=== PATIENT | male | born 1945 | race African-American/Black ===

== ENCOUNTER 2016-10-20 09:17 | Inpatient (IN) | payer MEDICARE, MEDICAID ==
[~2016-10-20] VITALS: Ht 170.2 cm; Wt 71.2 kg
[2016-10-20] MEDS ORDERED: VASOTEC5 MG ORAL (09:29)
[2016-10-20] MEDS ORDERED: MULTIVITAMINS1 EAC8 ORAL (09:29)
[2016-10-20] MEDS ORDERED: NAMENDA XR28 MG PO (09:29)
[2016-10-20] MEDS ORDERED: VITAMIN C500 M1 ORAL (09:29)
[2016-10-20] MEDS ORDERED: ASPIR 8181 MG ORAL (09:29)
[2016-10-20] MEDS ORDERED: DOCUSATE SODIU100 MG ORAL (09:29)
[2016-10-20] MEDS ORDERED: TYLENOL325 MG ORAL (09:29)
[2016-10-20 09:30] VITALS: BP 134/111
[2016-10-20] MEDS ORDERED: Pantoprazole 80 MG in NS 250 ML IV ONE (09:30)
[2016-10-20] MEDS ORDERED: Pantoprazole Inj IV ONE (09:30)
--- NOTE | 2016-10-20 09:32 | Emergency Room Report ---
History of Present Illness General Chief Complaint: Gastrointestinal Bleed Source: Medical Record, EMS Present Illness HPI This [facility]. He is nonverbal at baseline and has contractions. His a history of dementia COPD and generalized weakness. He also has a history of schizophrenia. He is presenting from the [facility] facility because he had an episode of what appeared to be coffee ground emesis x1 this morning there is no other reports of fever or evidence of pain. There are no other complaints. Allergies: Coded Allergies: No Known Allergies (Unverified , 10/20/16) Patient History Past Medical History: see triage record, COPD, GERD, dementia, psych hx - schizophrenia, other - generalized weakness, Contractures Social History: Denies: alcohol use, drug use, smoking Reviewed Nursing Documentation: PMH: Agreed, PSxH: Agreed Nursing Documentation-PMH Hx COPD: Yes History Of Psychiatric Problem: Yes - Alzheimer's Review of Systems All Other Systems: limited Physical Exam Vital Signs Date Time Temp Pulse Resp B/P Pulse Ox O2 Delivery O2 Flow Rate FiO2 10/20/16 09:15 99.0 88 18 123/90 95 Room Air Sp02 EP Interpretation: reviewed, normal General Appearance: no apparent distress, alert, GCS 15, non-toxic Head: normocephalic, atraumatic ENT: no angioedema Neck: normal inspection, supple/symm/no masses Respiratory: chest non-tender, lungs clear, normal breath sounds, no respiratory distress, no retraction, no accessory muscle use Cardiovascular #1: regular rate, rhythm, no edema, systolic murmur Gastrointestinal: normal bowel sounds, non tender, soft, non-distended, no guarding, no rebound Rectal: deferred Musculoskeletal: non-tender, other - position, contractures. At baseline. Neurologic: alert, other - At baseline. Non-verbal Skin: warm/dry, well hydrated, other - See RN skin exam Medical Decision Making Diagnostic Impression: Primary Impression: Gastrointestinal hemorrhage ER Course This patient had an episode of coffee-ground emesis at the [facility] facility. There was one episode just prior to arrival. The patient hemoglobin and hematocrit are stable and normal. However, this could be early in the process of an upper GI bleed. The patient had no further episodes here in the emergency department. He was given a Protonix bolus IV and started on a Protonix drip. I will that this patient for further evaluation by gastroenterology. The patient is nonverbal concerned unable to get any further history. He is admitted to telemetry. Labs Test 10/20/16 09:25 White Blood Count 11.7 K/UL (4.8-10.8) Red Blood Count 6.47 M/UL (4.70-6.10) Hemoglobin 19.3 G/DL (14.2-18.0) Hematocrit 61.3 % (42.0-52.0) Mean Corpuscular Volume 95 FL (80-99) Mean Corpuscular Hemoglobin 29.8 PG (27.0-31.0) Mean Corpuscular Hemoglobin Concent 31.4 G/DL (32.0-36.0) Red Cell Distribution Width 12.7 % (11.6-14.8) Platelet Count 256 K/UL (150-450) Mean Platelet Volume 6.1 FL (6.5-10.1) Neutrophils (%) (Auto) 79.6 % (45.0-75.0) Lymphocytes (%) (Auto) 13.4 % (20.0-45.0) Monocytes (%) (Auto) 6.0 % (1.0-10.0) Eosinophils (%) (Auto) 0.4 % (0.0-3.0) Basophils (%) (Auto) 0.7 % (0.0-2.0) Prothrombin Time 11.4 SEC (9.30-11.50) Prothromb Time International Ratio 1.1 (0.9-1.1) Activated Partial Thromboplast Time 24 SEC (23-33) Sodium Level 138 mEQ/L (135-145) Potassium Level 4.3 mEQ/L (3.4-4.9) Chloride Level 100 mEQ/L (98-107) Carbon Dioxide Level 26 mEQ/L (20-30) Anion Gap 12 (5-15) Blood Urea Nitrogen 15 mg/dL (7-23) Creatinine 1.0 mg/dL (0.7-1.2) Estimat Glomerular Filtration Rate > 60 mL/min (>60) Glucose Level 132 mg/dL (74-106) Calcium Level 9.8 mg/dL (8.6-10.2) Total Bilirubin 0.9 mg/dL (0.0-1.2) Aspartate Amino Transf (AST/SGOT) 39 U/L (5-40) Alanine Aminotransferase (ALT/SGPT) 37 U/L (3-41) Alkaline Phosphatase 123 U/L (40-129) Troponin I < 0.30 ng/mL (<=0.30) Total Protein 7.9 g/dL (6.6-8.7) Albumin 3.9 g/dL (3.5-5.2) Globulin 4.0 g/dL Albumin/Globulin Ratio 0.9 (1.0-2.7) Lipase 48 U/L (< 60) EKG Diagnostic Results Rate: normal Rhythm: NSR ST Segments: no acute changes Other Impression Qwaves in V1, V2, V3 Rhythm Strip Diag. Results EP Interpretation: yes Rate: 80's Rhythm: NSR, no PVC's, no ectopy Last Vital Signs Date Time Temp Pulse Resp B/P Pulse Ox O2 Delivery O2 Flow Rate FiO2 10/20/16 09:15 99.0 88 18 123/90 95 Room Air Disposition: ADMITTED INPATIENT Condition: Serious CORA TAO D.O. Oct 20, 2016 09:32
[2016-10-20] MEDS ORDERED: Pantoprazole Inj ONE (09:45)
[2016-10-20 09:49] LABS: BASOPHILS % (AUTO) 0.7 % (0.0-2.0); EOSINOPHILS % (AUTO) 0.4 % (0.0-3.0); LYMPHOCYTES % (AUTO) 13.4 % (20.0-45.0); MEAN CORPUSCULAR HEMOGLOBIN 29.8 PG (27.0-31.0); MEAN CORPUSCULAR HGB CONC 31.4 G/DL (32.0-36.0); MEAN CORPUSCULAR VOLUME 95 FL (80-99); MEAN PLATELET VOLUME 6.1 FL (6.5-10.1); NEUTROPHILS % (AUTO) 79.6 % (45.0-75.0); PLATELET COUNT 256 K/UL (150-450); RED BLOOD COUNT 6.47 M/UL (4.70-6.10); RED CELL DISTRIBUTION WIDTH 12.7 % (11.6-14.8); WHITE BLOOD COUNT 11.7 K/UL (4.8-10.8)
[2016-10-20 09:59] LABS: INR 1.1 (0.9-1.1); PROTHROMBIN TIME 11.4 SEC (9.30-11.50)
[2016-10-20 10:09] LABS: TROPONIN I < 0.30 ng/mL (<=0.30)
[2016-10-20 10:12] LABS: ALANINE AMINOTRANSFERASE 37 U/L (3-41); ALBUMIN/GLOBULIN RATIO 0.9 (1.0-2.7); ANION GAP 12 (5-15); ASPARTATE AMINO TRANSFERASE 39 U/L (5-40); CALCIUM 9.8 mg/dL (8.6-10.2); CARBON DIOXIDE 26 mEQ/L (20-30); CHLORIDE 100 mEQ/L (98-107); GLOMERULAR FILTRATION RATE > 60 mL/min (>60); HEMOLYSIS 21; LIPASE 48 U/L (< 60); POTASSIUM 4.3 mEQ/L (3.4-4.9); SODIUM 138 mEQ/L (135-145); TOTAL PROTEIN 7.9 g/dL (6.6-8.7)
[2016-10-20 11:21] LABS: APPEARANCE,URINE SLIGHTLY CLOUDY; KETONES,URINE 1+ (NEGATIVE); LEUKOCYTE ESTERASE ,URINE 3+ (NEGATIVE); NITRITE,URINE POSITIVE (NEGATIVE); PH,URINE 8 (4.5-8.0); PROTEIN,URINE 2+ (NEGATIVE); UROBILINOGEN,URINE 8 MG/DL (0.0-1.0)
[2016-10-20 11:30] VITALS: BP 114/50
[2016-10-20 11:36] LABS: BACTERIA,URINE MANY /HPF; SQUAMOUS EPITHELIAL CELL,UR OCCASIONAL /LPF (NONE/OCC)
[2016-10-20 11:37] LABS: MUCUS,URINE MODERATE /LPF (NONE/OCC)
[2016-10-20 11:41] LABS: ICTOTEST NEGATIVE
[2016-10-20 13:23] VITALS: BP 122/77
[2016-10-20] MEDS ORDERED: Morphine Sulfate 2mg/ml Inj IVP PRN (14:00)
[2016-10-20] MEDS ORDERED: Nitroglycerin Subl 0.4mg tab (Bottle Of 25) SL PRN (14:00)
[2016-10-20] MEDS ORDERED: Mylanta II UD 30ml ORAL PRN (14:00)
[2016-10-20] MEDS: D5NS 1,000 ML IV SCH (14:01)
[2016-10-20] MEDS ORDERED: Phytonadione 10 MG in D5W 55 ML IVPB ONE (15:00)
[2016-10-20 16:25] VITALS: BP 117/92
--- NOTE | 2016-10-20 17:03 | GI Initial Consult Note ---
TaliaDonnayong Barnhart N.P. 10/20/16 1703: History of Present Illness General Date patient seen: Oct 20, 2016 Time patient seen: 16:55 Reason for Hospitalization: Gastrointestinal Bleed Referring physician: MARCELA PENALOZA Reason for Consultation: GI BLEED Present Illness HPI This patient is brought in from a senior care facility. He is nonverbal at baseline and has contractions. His a history of dementia COPD and generalized weakness. He also has a history of schizophrenia. He is presenting from the senior care facility because he had an episode of what appeared to be coffee ground emesis x1 this morning there is no other reports of fever or evidence of pain. There are no other complaints. GI Consult. GI consult for reports of coffee ground emesis. ROS limited, nonverbal baseline. Patient seen on floor, awake A&Ox4 NAD with no active s/sx of N/V/D. Presents today with hemoconcentration, mild leukocytosis. Lipase unremarkable. Unknown history of endoscopic procedures. Home Meds Reported Medications Ascorbic Acid* (VITAMIN C*) 500 Mg Tablet, 500 MG ORAL DAILY, #30 TAB 0 Refills 10/20/16 Enalapril Maleate* (VASOTEC*) 5 Mg Tablet, 5 MG ORAL EVERY 12 HOURS, TAB 10/20/16 Memantine Hcl (NAMENDA XR) 28 Mg Cap.spr.24, 28 MG PO DAILY, CAP 10/20/16 Multivitamin With Minerals (MULTIVITAMINS WITH MINERALS*) 1 Each Tablet, 1 TAB ORAL DAILY, TAB 10/20/16 Docusate Sodium* (DOCUSATE SODIUM*) 100 Mg Capsule, 100 MG ORAL DAILY, CAP 10/20/16 Aspirin* (ASPIR 81*) 81 Mg Tablet.dr, 81 MG ORAL DAILY, TAB 10/20/16 Acetaminophen (Tylenol) 325 Mg Tablet, 500 MG ORAL Q4HR Y for Prn Pain/Headache/ Temp > 101, #30 TAB 0 Refills 10/20/16 Med list reviewed/reconciled: Yes Allergies: Coded Allergies: No Known Allergies (Unverified , 10/20/16) Patient History Limited by: medical condition History Provided By: Medical Record PM Narrative Past Medical History: see triage record, COPD, GERD, dementia, psych hx - schizophrenia, other - generalized weakness, Contractures Social History: Denies: alcohol use, drug use, smoking Reviewed Nursing Documentation: PMH: Agreed, PSxH: Agreed Nursing Documentation-PMH Hx COPD: Yes History Of Psychiatric Problem: Yes - Alzheimer's Review of Systems All Other Systems: limited Physical Exam Vital Signs Date Time Temp Pulse Resp B/P Pulse Ox O2 Delivery O2 Flow Rate FiO2 10/20/16 09:15 99.0 88 18 123/90 95 Room Air Sp02 EP Interpretation: reviewed Labs Laboratory Tests Test 10/20/16 09:25 10/20/16 11:05 White Blood Count 11.7 K/UL (4.8-10.8) H Red Blood Count 6.47 M/UL (4.70-6.10) H Hemoglobin 19.3 G/DL (14.2-18.0) *H Hematocrit 61.3 % (42.0-52.0) H Mean Corpuscular Volume 95 FL (80-99) Mean Corpuscular Hemoglobin 29.8 PG (27.0-31.0) Mean Corpuscular Hemoglobin Concent 31.4 G/DL (32.0-36.0) L Red Cell Distribution Width 12.7 % (11.6-14.8) Platelet Count 256 K/UL (150-450) Mean Platelet Volume 6.1 FL (6.5-10.1) L Neutrophils (%) (Auto) 79.6 % (45.0-75.0) H Lymphocytes (%) (Auto) 13.4 % (20.0-45.0) L Monocytes (%) (Auto) 6.0 % (1.0-10.0) Eosinophils (%) (Auto) 0.4 % (0.0-3.0) Basophils (%) (Auto) 0.7 % (0.0-2.0) Prothrombin Time 11.4 SEC (9.30-11.50) Prothromb Time International Ratio 1.1 (0.9-1.1) Activated Partial Thromboplast Time 24 SEC (23-33) Sodium Level 138 mEQ/L (135-145) Potassium Level 4.3 mEQ/L (3.4-4.9) Chloride Level 100 mEQ/L (98-107) Carbon Dioxide Level 26 mEQ/L (20-30) Anion Gap 12 (5-15) Blood Urea Nitrogen 15 mg/dL (7-23) Creatinine 1.0 mg/dL (0.7-1.2) Estimat Glomerular Filtration Rate > 60 mL/min (>60) Glucose Level 132 mg/dL (74-106) H Calcium Level 9.8 mg/dL (8.6-10.2) Total Bilirubin 0.9 mg/dL (0.0-1.2) Aspartate Amino Transf (AST/SGOT) 39 U/L (5-40) Alanine Aminotransferase (ALT/SGPT) 37 U/L (3-41) Alkaline Phosphatase 123 U/L (40-129) Troponin I < 0.30 ng/mL (<=0.30) Total Protein 7.9 g/dL (6.6-8.7) Albumin 3.9 g/dL (3.5-5.2) Globulin 4.0 g/dL Albumin/Globulin Ratio 0.9 (1.0-2.7) L Lipase 48 U/L (< 60) Urine Color Mariann Urine Appearance Slightly cloudy Urine pH 8 (4.5-8.0) Urine Specific [place] 1.010 (1.005-1.035) Urine Protein 2+ (NEGATIVE) H Urine Glucose (UA) Negative (NEGATIVE) Urine Ketones 1+ (NEGATIVE) H Urine Occult Blood 1+ (NEGATIVE) H Urine Nitrite Positive (NEGATIVE) H Urine Bilirubin Negative (NEGATIVE) Urine Ictotest Negative Urine Urobilinogen 8 MG/DL (0.0-1.0) H Urine Leukocyte Esterase 3+ (NEGATIVE) H Urine RBC 5-10 /HPF (0 - 0) H Urine WBC 10-15 /HPF (0 - 0) H Urine Squamous Epithelial Cells Occasional /LPF Urine Bacteria Many /HPF (NONE) H Urine Mucus Moderate /LPF (NONE/OCC) H General Appearance: well appearing, no apparent distress, alert, thin Head: normocephalic EENT: normal ENT inspection Neck: supple Respiratory: normal breath sounds, no respiratory distress Cardiovascular: normal rate Gastrointestinal: soft Rectal: deferred Genitourinary: no CVA tenderness Musculoskeletal: back normal Neurologic: alert Skin: normal inspection, normal color, no rash Lymphatic: normal inspection, no adenopathy Current Medications Current Medications Medications (Trade) Dose Ordered Sig/Ant Route PRN Reason Start Time Stop Time Status Last Admin Dose Admin Acetaminophen (Tylenol) 650 mg Q4H PRN ORAL fever>100.5 10/20/16 14:00 11/19/16 13:59 Al Hydroxide/Mg Hydroxide (Mylanta II) 30 ml Q6H PRN ORAL dyspepsia 10/20/16 14:00 11/19/16 13:59 Dextrose STAT PRN IV Hypoglycemia 10/20/16 14:00 11/19/16 13:59 Dextrose/Sodium Chloride (D5ns) 1,000 ml @ 100 mls/hr Q10H IV 10/20/16 14:00 11/19/16 13:59 10/20/16 14:01 Diphenhydramine HCl (Benadryl) 25 mg Q6H PRN ORAL Itching/Pruritis 10/20/16 14:00 11/19/16 13:59 Morphine Sulfate (Morphine Sulfate) 2 mg Q4H PRN IVP severe Pain (Pain Scale 7-10) 10/20/16 14:00 10/27/16 13:59 Nitroglycerin (Ntg) 0.4 mg Q5M X 3 DOSES PRN SL Prn Chest Pain 10/20/16 14:00 11/19/16 13:59 Ondansetron HCl (Zofran) 4 mg Q6H PRN IVP Nausea & Vomiting 10/20/16 14:00 11/19/16 13:59 Pantoprazole/ Sodium Chloride (Protonix/Sodium Chloride) 250 ml @ 25 mls/hr Q10H ONCE IV 10/20/16 09:30 10/20/16 19:29 10/20/16 09:56 Polyethylene Glycol (Miralax) 17 gm HSPRN PRN ORAL Constipation 10/20/16 21:00 11/19/16 20:59 Temazepam (Restoril) 15 mg HSPRN PRN ORAL Insomnia 10/20/16 21:00 10/27/16 20:59 GI: Plan Problems: (1) Alzheimer disease (2) Gastrointestinal hemorrhage Plan EGD scheduled for tomorrow. - CLD, NPO @ [facility]. - hold all blood thinners - dc ppi gtt >> daily monitor H&H, prn transfusions IV hydration abx fu labs Discussed with Dr. Garner. Thank you for referring this patient, we will follow. TIMMY GARNER 10/21/16 7867: History of Present Illness General Reason for Hospitalization: Gastrointestinal Bleed Present Illness Home Meds Reported Medications Ascorbic Acid* (VITAMIN C*) 500 Mg Tablet, 500 MG ORAL DAILY, #30 TAB 0 Refills 10/20/16 Enalapril Maleate* (VASOTEC*) 5 Mg Tablet, 5 MG ORAL EVERY 12 HOURS, TAB 10/20/16 Memantine Hcl (NAMENDA XR) 28 Mg Cap.spr.24, 28 MG PO DAILY, CAP 10/20/16 Multivitamin With Minerals (MULTIVITAMINS WITH MINERALS*) 1 Each Tablet, 1 TAB ORAL DAILY, TAB 10/20/16 Docusate Sodium* (DOCUSATE SODIUM*) 100 Mg Capsule, 100 MG ORAL DAILY, CAP 10/20/16 Aspirin* (ASPIR 81*) 81 Mg Tablet.dr, 81 MG ORAL DAILY, TAB 10/20/16 Acetaminophen (Tylenol) 325 Mg Tablet, 500 MG ORAL Q4HR Y for Prn Pain/Headache/ Temp > 101, #30 TAB 0 Refills 10/20/16 Allergies: Coded Allergies: No Known Allergies (Unverified , 10/20/16) GI: Plan Plan The patient was seen and examined at bedside and all new and available data was reviewed in the patients chart. I agree with the above findings, impression and plan. (Patient seen earlier today. Signature stamp does not reflect patient encounter time.). -Indiana Braga MDh Obey NHardik Oct 20, 2016 17:03 TIMMY GARNER Oct 21, 2016 12:59
[2016-10-20 20:08] VITALS: BP 132/52
[2016-10-20] MEDS ORDERED: Miralax 17gm pkt ORAL PRN (21:00)
--- NOTE | 2016-10-20 22:11 | History and Physical ---
History of Present Illness General Date patient seen: Oct 20, 2016 Reason for Hospitalization: Gastrointestinal Bleed Present Illness HPI 71 year old male with hx of COPD, GERD, dementia, schizophrenia, Contractures, longterm resident was brought in because he had an episode of coffee ground emesis. there is no other reports of fever or evidence of pain. There are no other complaints. pt is full code and admitted to telemetry for further evaluation. Allergies: Coded Allergies: No Known Allergies (Unverified , 10/20/16) Medication History Scheduled Ascorbic Acid* (Vitamin C*), 500 MG ORAL DAILY, (Reported) Aspirin* (Aspir 81*), 81 MG ORAL DAILY, (Reported) Docusate Sodium* (Docusate Sodium*), 100 MG ORAL DAILY, (Reported) Enalapril Maleate* (Vasotec*), 5 MG ORAL EVERY 12 HOURS, (Reported) Memantine Hcl (Namenda Xr), 28 MG PO DAILY, (Reported) Multivitamin With Minerals (Multivitamins With Minerals*), 1 TAB ORAL DAILY, ( Reported) Scheduled PRN Acetaminophen (Tylenol), 500 MG ORAL Q4HR PRN for Prn Pain/Headache/Temp > 101, (Reported) Patient History Healthcare decision maker Resuscitation status Full Code Advanced Directive on File Past Medical/Surgical History Past Medical/Surgical History: (1) Psychosis (2) COPD (chronic obstructive pulmonary disease) (3) Limited mobility (4) Alzheimer disease Review of Systems All Other Systems: negative except mentioned in HPI Physical Exam General Appearance: WD/WN Lines, tubes and drains: peripheral HEENT: normocephalic, atraumatic Neck: non-tender, normal alignment Respiratory/Chest: chest wall non-tender, lungs clear, normal breath sounds Cardiovascular/Chest: normal peripheral pulses, normal rate, no JVD Abdomen: non tender, no organomegaly Last 24 Hour Vital Signs Date Time Temp Pulse Resp B/P Pulse Ox O2 Delivery O2 Flow Rate FiO2 10/20/16 20:08 99.0 69 21 132/52 96 Room Air 10/20/16 16:25 97.3 78 24 117/92 95 Room Air 10/20/16 16:00 79 10/20/16 13:23 97.0 72 24 122/77 95 Room Air 10/20/16 13:21 72 10/20/16 12:54 75 16 133/79 100 Room Air 10/20/16 11:30 98.9 72 18 114/50 97 Room Air 10/20/16 09:30 99.0 88 26 134/111 96 Room Air 10/20/16 09:15 99.0 88 18 123/90 95 Room Air Laboratory Tests Test 10/20/16 09:25 10/20/16 11:05 White Blood Count 11.7 K/UL (4.8-10.8) H Red Blood Count 6.47 M/UL (4.70-6.10) H Hemoglobin 19.3 G/DL (14.2-18.0) *H Hematocrit 61.3 % (42.0-52.0) H Mean Corpuscular Volume 95 FL (80-99) Mean Corpuscular Hemoglobin 29.8 PG (27.0-31.0) Mean Corpuscular Hemoglobin Concent 31.4 G/DL (32.0-36.0) L Red Cell Distribution Width 12.7 % (11.6-14.8) Platelet Count 256 K/UL (150-450) Mean Platelet Volume 6.1 FL (6.5-10.1) L Neutrophils (%) (Auto) 79.6 % (45.0-75.0) H Lymphocytes (%) (Auto) 13.4 % (20.0-45.0) L Monocytes (%) (Auto) 6.0 % (1.0-10.0) Eosinophils (%) (Auto) 0.4 % (0.0-3.0) Basophils (%) (Auto) 0.7 % (0.0-2.0) Prothrombin Time 11.4 SEC (9.30-11.50) Prothromb Time International Ratio 1.1 (0.9-1.1) Activated Partial Thromboplast Time 24 SEC (23-33) Sodium Level 138 mEQ/L (135-145) Potassium Level 4.3 mEQ/L (3.4-4.9) Chloride Level 100 mEQ/L (98-107) Carbon Dioxide Level 26 mEQ/L (20-30) Anion Gap 12 (5-15) Blood Urea Nitrogen 15 mg/dL (7-23) Creatinine 1.0 mg/dL (0.7-1.2) Estimat Glomerular Filtration Rate > 60 mL/min (>60) Glucose Level 132 mg/dL (74-106) H Calcium Level 9.8 mg/dL (8.6-10.2) Total Bilirubin 0.9 mg/dL (0.0-1.2) Aspartate Amino Transf (AST/SGOT) 39 U/L (5-40) Alanine Aminotransferase (ALT/SGPT) 37 U/L (3-41) Alkaline Phosphatase 123 U/L (40-129) Troponin I < 0.30 ng/mL (<=0.30) Total Protein 7.9 g/dL (6.6-8.7) Albumin 3.9 g/dL (3.5-5.2) Globulin 4.0 g/dL Albumin/Globulin Ratio 0.9 (1.0-2.7) L Lipase 48 U/L (< 60) Urine Color Mariann Urine Appearance Slightly cloudy Urine pH 8 (4.5-8.0) Urine Specific [place] 1.010 (1.005-1.035) Urine Protein 2+ (NEGATIVE) H Urine Glucose (UA) Negative (NEGATIVE) Urine Ketones 1+ (NEGATIVE) H Urine Occult Blood 1+ (NEGATIVE) H Urine Nitrite Positive (NEGATIVE) H Urine Bilirubin Negative (NEGATIVE) Urine Ictotest Negative Urine Urobilinogen 8 MG/DL (0.0-1.0) H Urine Leukocyte Esterase 3+ (NEGATIVE) H Urine RBC 5-10 /HPF (0 - 0) H Urine WBC 10-15 /HPF (0 - 0) H Urine Squamous Epithelial Cells Occasional /LPF Urine Bacteria Many /HPF (NONE) H Urine Mucus Moderate /LPF (NONE/OCC) H Height (Feet): 5 Height (Inches): 8.00 Weight (Pounds): 130 Medications Current Medications Medications (Trade) Dose Ordered Sig/Ant Route PRN Reason Start Time Stop Time Status Last Admin Dose Admin Acetaminophen (Tylenol) 650 mg Q4H PRN ORAL fever>100.5 10/20/16 14:00 11/19/16 13:59 Al Hydroxide/Mg Hydroxide (Mylanta II) 30 ml Q6H PRN ORAL dyspepsia 10/20/16 14:00 11/19/16 13:59 Dextrose STAT PRN IV Hypoglycemia 10/20/16 14:00 11/19/16 13:59 Dextrose/Sodium Chloride (D5ns) 1,000 ml @ 100 mls/hr Q10H IV 10/20/16 14:00 11/19/16 13:59 10/20/16 14:01 Diphenhydramine HCl (Benadryl) 25 mg Q6H PRN ORAL Itching/Pruritis 10/20/16 14:00 11/19/16 13:59 Morphine Sulfate (Morphine Sulfate) 2 mg Q4H PRN IVP severe Pain (Pain Scale 7-10) 10/20/16 14:00 10/27/16 13:59 Nitroglycerin (Ntg) 0.4 mg Q5M X 3 DOSES PRN SL Prn Chest Pain 10/20/16 14:00 11/19/16 13:59 Ondansetron HCl (Zofran) 4 mg Q6H PRN IVP Nausea & Vomiting 10/20/16 14:00 11/19/16 13:59 Pantoprazole (Protonix) 40 mg DAILY IVP 10/21/16 09:00 11/20/16 08:59 Polyethylene Glycol (Miralax) 17 gm HSPRN PRN ORAL Constipation 10/20/16 21:00 11/19/16 20:59 Temazepam (Restoril) 15 mg HSPRN PRN ORAL Insomnia 10/20/16 21:00 10/27/16 20:59 Assessment/Plan Problem List: (1) Gastrointestinal hemorrhage ICD Codes: K92.2 - Gastrointestinal hemorrhage, unspecified SNOMED: 36041732 (2) Alzheimer disease ICD Codes: G30.9 - Alzheimer's disease, unspecified SNOMED: 01775423 (3) COPD (chronic obstructive pulmonary disease) ICD Codes: J44.9 - Chronic obstructive pulmonary disease, unspecified SNOMED: 50109721 (4) Psychosis ICD Codes: F29 - Unspecified psychosis not due to a substance or known physiological condition SNOMED: 63903388 (5) Limited mobility ICD Codes: Z74.09 - Other reduced mobility SNOMED: 8756373 Assessment/Plan NPO IV fluids GI evaluation check h/h prbc prn dvt prophylaxis MARCELA SCHULZ Oct 20, 2016 22:11
[2016-10-20 23:47] VITALS: BP 128/85
[2016-10-21] VITALS (10 sets, daily range): BP systolic 97–143; BP diastolic 55–90
[2016-10-21] MEDS: D5NS 1,000 ML IV SCH ×4 (00:19→22:57)
[2016-10-21] MEDS ORDERED: Pantoprazole Inj IVP SCH (09:00)
[2016-10-21 09:03] LABS: EOSINOPHILS % (AUTO) 3.8 % (0.0-3.0); LYMPHOCYTES % (AUTO) 24.3 % (20.0-45.0); MEAN CORPUSCULAR HEMOGLOBIN 30.5 PG (27.0-31.0); MEAN CORPUSCULAR HGB CONC 31.9 G/DL (32.0-36.0); MEAN CORPUSCULAR VOLUME 96 FL (80-99); MEAN PLATELET VOLUME 6.5 FL (6.5-10.1); MONOCYTES % (AUTO) 10.1 % (1.0-10.0); NEUTROPHILS % (AUTO) 60.9 % (45.0-75.0); PLATELET COUNT 219 K/UL (150-450); RED BLOOD COUNT 5.33 M/UL (4.70-6.10); RED CELL DISTRIBUTION WIDTH 12.8 % (11.6-14.8); WHITE BLOOD COUNT 10.7 K/UL (4.8-10.8)
[2016-10-21 09:14] LABS: PROTHROMBIN TIME 10.8 SEC (9.30-11.50)
[2016-10-21 09:26] LABS: ALANINE AMINOTRANSFERASE 25 U/L (3-41); AMYLASE 118 U/L (10-110); ANION GAP 10 (5-15); ASPARTATE AMINO TRANSFERASE 24 U/L (5-40); CARBON DIOXIDE 26 mEQ/L (20-30); CHLORIDE 107 mEQ/L (98-107); CREATININE 0.9 mg/dL (0.7-1.2); GLOMERULAR FILTRATION RATE > 60 mL/min (>60); HEMOLYSIS 5; LIPASE 59 U/L (< 60); POTASSIUM 4.1 mEQ/L (3.4-4.9); SODIUM 143 mEQ/L (135-145); TOTAL PROTEIN 6.5 g/dL (6.6-8.7)
[2016-10-21 09:39] LABS: BILIRUBIN,DIRECT 0.3 mg/dL (0.1-0.3)
--- NOTE | 2016-10-21 10:14 | General Progress Note ---
Progress Note Progress Note Pt needs an EGD to determine the source of GI bleeding, No family available to sign the consent. Pt is not capable of signing anything. MARCELA SCHULZ Oct 21, 2016 10:14
--- NOTE | 2016-10-21 11:05 | Pre-Procedure Note/Attestation ---
Pre-Procedure Note/Attestation Complete Prior to Procedure Planned Procedure: not applicable Procedure Narrative: egd Indications for Procedure Pre-Operative Diagnosis: gib Attestation I attest that I discussed the nature of the procedure; its benefits; risks and complications; and alternatives (and the risks and benefits of such alternatives ), prior to the procedure, with the patient (or the patient's legal underwriting service representative). I attest that, if there was a reasonable possibility of needing a blood transfusion, the patient (or the patient's legal underwriting service representative) was given the [facility] standardized written summary, pursuant to the [place] Blood Safety Act ([place] Health and Safety Code # 1645, as amended). I attest that I re-evaluated the patient just prior to the surgery and that there has been no change in the patient's H&P, except as documented below: TIMMY GARNER Oct 21, 2016 11:05
[2016-10-21] MEDS ORDERED: NS 550ML IV ONE (11:25)
[2016-10-21] MEDS ORDERED: Propofol 10mg/ml 20ml IV ONE (11:30)
[2016-10-21] MEDS ORDERED: Lidocaine 1% MPF 10mg/ml 5ml ONE (11:30)
--- NOTE | 2016-10-21 11:40 | Anethesia Preoperative Eval ---
Anesthesia Pre-op PMH/ROS General ASA Score: ASA 3 Mallampati Score Class I : Soft palate, uvula, fauces, pillars visible Class II: Soft palate, uvula, fauces visible Class III: Soft palate, base of uvula visible Class IV: Only hard plate visible Mallampati Classification: Class III Surgeon: anahi Diagnosis: gi bleed Surgical Procedure: egd Anesthesia History: none Family History: no anesthesia problems Allergies: Coded Allergies: No Known Allergies (Unverified , 10/20/16) Medications: see eMAR Past Medical History Cardiovascular: Denies: CAD, HTN, [place], arrhythmia, other, valve dz Pulmonary: Denies: COPD, ROMY, asthma, other Gastrointestinal/Genitourinary: Denies: CRI, ESRD, GERD, other Neurologic/Psychiatric: Reports: dementia - alzhimeres dx Endocrine: Denies: DM, hypothyroidism, other, steroids Hematology/Immune: Reports: anemia, bleeding disorder - gi bleed Musculoskeletal/Integumentary: Denies: DDD, DJD, OA, RA, edema, other Anesthesia Pre-op Phys. Exam Physician Exam Last Vital Signs Date Time Temp Pulse Resp B/P Pulse Ox O2 Delivery O2 Flow Rate FiO2 10/21/16 09:00 83 10/21/16 08:15 97.9 16 97/55 94 Room Air Constitutional: NAD Neurologic: CN 2-12 intact Cardiovascular: RRR Respiratory: CTA Gastrointestinal: S/NT/ND Airway Exam Mallampati Score: Class III MO: limited ROM: limited Teeth: missing, broken Dentures: no lower, no upper Anesthesia Pre-op A/P Labs Hematology Test 10/21/16 08:20 White Blood Count 10.7 K/UL (4.8-10.8) Red Blood Count 5.33 M/UL (4.70-6.10) Hemoglobin 16.3 G/DL (14.2-18.0) Hematocrit 51.0 % (42.0-52.0) Mean Corpuscular Volume 96 FL (80-99) Mean Corpuscular Hemoglobin 30.5 PG (27.0-31.0) Mean Corpuscular Hemoglobin Concent 31.9 G/DL (32.0-36.0) L Red Cell Distribution Width 12.8 % (11.6-14.8) Platelet Count 219 K/UL (150-450) Mean Platelet Volume 6.5 FL (6.5-10.1) Neutrophils (%) (Auto) 60.9 % (45.0-75.0) Lymphocytes (%) (Auto) 24.3 % (20.0-45.0) Monocytes (%) (Auto) 10.1 % (1.0-10.0) H Eosinophils (%) (Auto) 3.8 % (0.0-3.0) H Basophils (%) (Auto) 1.0 % (0.0-2.0) Coagulation Test 10/21/16 08:20 Prothrombin Time 10.8 SEC (9.30-11.50) Prothromb Time International Ratio 1.0 (0.9-1.1) Activated Partial Thromboplast Time 28 SEC (23-33) Chemistry Test 10/21/16 08:20 Sodium Level 143 mEQ/L (135-145) Potassium Level 4.1 mEQ/L (3.4-4.9) Chloride Level 107 mEQ/L (98-107) Carbon Dioxide Level 26 mEQ/L (20-30) Anion Gap 10 (5-15) Blood Urea Nitrogen 10 mg/dL (7-23) Creatinine 0.9 mg/dL (0.7-1.2) Estimat Glomerular Filtration Rate > 60 mL/min (>60) Glucose Level 115 mg/dL (74-106) H Calcium Level 9.0 mg/dL (8.6-10.2) Total Bilirubin 1.3 mg/dL (0.0-1.2) H Direct Bilirubin 0.3 mg/dL (0.1-0.3) Aspartate Amino Transf (AST/SGOT) 24 U/L (5-40) Alanine Aminotransferase (ALT/SGPT) 25 U/L (3-41) Alkaline Phosphatase 94 U/L (40-129) Total Protein 6.5 g/dL (6.6-8.7) L Albumin 3.3 g/dL (3.5-5.2) L Globulin 3.2 g/dL Albumin/Globulin Ratio 1.0 (1.0-2.7) Amylase Level 118 U/L (10-110) H Lipase 59 U/L (< 60) Studies Pre-op Studies: EKG Risk Assessment & Plan Assessment: pt contracted and not with it. emergency case due to gi bleed. Plan: mac Status Change Before Surgery: No Pre-Antibiotics Given Within 1 Hr of Incision: No Nellie Tobias CRNA Oct 21, 2016 11:40
--- NOTE | 2016-10-21 11:45 | Endoscopy Procedure Note ---
Endoscopy Procedure Note Indication for Procedure: gib Procedures Performed: EGD Operative Findings/Diagnosis: esophagitis Specimen: yes Pt Tolerated Procedure Well: Yes Estimated Blood Loss: none Anesthesiologist: bobby Anesthesia: MAC Implant(s) used?: No 50 yrs or older w/o bx or poly: Not Applicable 10yrs. F/U not recommended: Not Applicable TIMMY GARNER Oct 21, 2016 11:45
--- NOTE | 2016-10-21 11:53 | Immediate Post-Op Evaluation ---
Immediate Post-Op Evalulation Immediate Post-Op Evalulation Date of Evaluation: Oct 21, 2016 Time of Evaluation: 11:52 IV Fluids: 250 Blood Pressure Systolic: 131 Blood Pressure Diastolic: 80 Pulse Rate: 94 Respiratory Rate: 30 O2 Sat by Pulse Oximetry: 97 Temperature (Fahrenheit): 97.5 Nausea: No Vomiting: No Complications none Patient Status: awake, patent Given Within 1 Hr of Incision: No Nellie Tobias CRNA Oct 21, 2016 11:53
--- NOTE | 2016-10-21 11:58 | 48 Hour Post Anesthesia Eval ---
Post Anesthesia Evaluation Date of Evaluation: Oct 21, 2016 Time of Evaluation: 11:57 Blood Pressure Systolic: 130 0: 75 Pulse Rate: 90 Respiratory Rate: 22 Temperature (Fahrenheit): 97.5 O2 Sat by Pulse Oximetry: 99 Airway: patent Nausea: No Vomiting: No Hydration Status: adequate Mental Status/LOC: patient returned to baseline Follow-up care needed: patient intructions given Nellie Tobias CRNA Oct 21, 2016 11:58
--- NOTE | 2016-10-21 12:57 | Diagnostic Imaging Report ---
APPROVED REPORT CPT Code: 02162 Present Symptoms Lower Extremity Pain: Shortness of breath Comments: Hx COPD. Limited study due to bilateral contractures. Technically difficult study (bilateral contractures of the hip and knee). RIGHT LEG: Venous imaging reveals a patent deep venous system. There is no evidence of thrombus within the femoral, popliteal or anterior tibial segments. The greater saphenous vein is also within normal limits. Doppler indicates normal spontaneous flow within these segments. The mid superficial femoral vein, posterior tibial and peroneal veins were not visualized due to contracture. LEFT LEG: Venous imaging reveals a patent deep venous system. There is no evidence of thrombus within the femoral segments. The greater saphenous vein is also within normal limits. Doppler indicates normal spontaneous flow within these segments. The popliteal and calf veins were not visualized due to contracture.
[2016-10-21] MEDS ORDERED: Sucralfate 1gm tab ORAL SCH (13:00)
--- NOTE | 2016-10-21 14:36 | Pulmonology Progress Note ---
Assessment/Plan Problems: (1) Gastrointestinal hemorrhage (2) Alzheimer disease (3) COPD (chronic obstructive pulmonary disease) (4) Psychosis (5) Limited mobility Assessment/Plan egd done, showing esophagitis swallow study done h/h lower but still normal resume feeding watch cbc med/surg Subjective ROS Limited/Unobtainable: No Constitutional: Reports: no symptoms HEENT: Repors: no symptoms Cardiovascular: Reports: no symptoms Gastrointestinal/Abdominal: Reports: no symptoms Allergies: Coded Allergies: No Known Allergies (Unverified , 10/20/16) Objective Last 24 Hour Vital Signs Date Time Temp Pulse Resp B/P Pulse Ox O2 Delivery O2 Flow Rate FiO2 10/21/16 14:16 97.7 75 16 113/72 97 Room Air 10/21/16 12:12 97.5 74 20 118/65 95 Room Air 10/21/16 12:05 75 20 126/69 95 Room Air 10/21/16 11:58 90 22 99 10/21/16 11:57 74 20 126/69 98 Nasal Cannula 2.0 10/21/16 11:53 94 30 97 10/21/16 11:52 74 20 130/81 97 Nasal Cannula 2.0 10/21/16 11:47 97.5 86 20 131/80 97 Nasal Cannula 2.0 10/21/16 09:00 83 10/21/16 08:15 97.9 85 16 97/55 94 Room Air 10/21/16 04:00 75 10/21/16 03:53 98.5 86 19 115/68 95 Room Air 10/21/16 00:00 76 10/20/16 23:47 98.1 82 20 128/85 94 Room Air 10/20/16 20:08 99.0 69 21 132/52 96 Room Air 10/20/16 20:00 82 10/20/16 16:25 97.3 78 24 117/92 95 Room Air 10/20/16 16:00 79 Intake and Output 10/20/16 10/21/16 19:00 07:00 Intake Total 1956 ml 1100 ml Balance 1956 ml 1100 ml Intake Oral 300 ml IV Total 1656 ml 1100 ml # Voids 1 # Bowel Movements 1 General Appearance: WD/WN HEENT: normocephalic, atraumatic Respiratory/Chest: chest wall non-tender, lungs clear Cardiovascular: normal peripheral pulses, normal rate Abdomen: normal bowel sounds, soft, non tender Genitourinary: normal external genitalia Skin: no rash, no lesions 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 Lymphatic: no neck adenopathy Microbiology Date/Time Source Procedure Growth Status 10/20/16 11:05 Urine,Clean Catch Urine Culture - Preliminary Gram Negative Bacillus 1 Resulted Laboratory Tests 10/21/16 08:20: White Blood Count 10.7, Red Blood Count 5.33, Hemoglobin 16.3, Hematocrit 51.0, Mean Corpuscular Volume 96, Mean Corpuscular Hemoglobin 30.5, Mean Corpuscular Hemoglobin Concent 31.9L, Red Cell Distribution Width 12.8, Platelet Count 219, Mean Platelet Volume 6.5, Neutrophils (%) (Auto) 60.9, Lymphocytes (%) (Auto) 24.3, Monocytes (%) (Auto) 10.1H, Eosinophils (%) (Auto) 3.8H, Basophils (%) ( Auto) 1.0, Prothrombin Time 10.8, Prothromb Time International Ratio 1.0, Activated Partial Thromboplast Time 28, Sodium Level 143, Potassium Level 4.1, Chloride Level 107, Carbon Dioxide Level 26, Anion Gap 10, Blood Urea Nitrogen 10, Creatinine 0.9, Estimat Glomerular Filtration Rate > 60, Glucose Level 115H , Calcium Level 9.0, Total Bilirubin 1.3H, Direct Bilirubin 0.3, Aspartate Amino Transf (AST/SGOT) 24, Alanine Aminotransferase (ALT/SGPT) 25, Alkaline Phosphatase 94, Total Protein 6.5L, Albumin 3.3L, Globulin 3.2, Albumin/ Globulin Ratio 1.0, Amylase Level 118H, Lipase 59 Current Medications Medications (Trade) Dose Ordered Sig/Ant Route PRN Reason Start Time Stop Time Status Last Admin Dose Admin Acetaminophen (Tylenol) 650 mg Q4H PRN ORAL fever>100.5 10/20/16 14:00 11/19/16 13:59 Al Hydroxide/Mg Hydroxide (Mylanta II) 30 ml Q6H PRN ORAL dyspepsia 10/20/16 14:00 11/19/16 13:59 Dextrose STAT PRN IV Hypoglycemia 10/20/16 14:00 11/19/16 13:59 Dextrose/Sodium Chloride (D5ns) 1,000 ml @ 100 mls/hr Q10H IV 10/20/16 14:00 11/19/16 13:59 10/21/16 10:01 Diphenhydramine HCl (Benadryl) 25 mg Q6H PRN ORAL Itching/Pruritis 10/20/16 14:00 11/19/16 13:59 Morphine Sulfate (Morphine Sulfate) 2 mg Q4H PRN IVP severe Pain (Pain Scale 7-10) 10/20/16 14:00 10/27/16 13:59 Nitroglycerin (Ntg) 0.4 mg Q5M X 3 DOSES PRN SL Prn Chest Pain 10/20/16 14:00 11/19/16 13:59 Ondansetron HCl (Zofran) 4 mg Q6H PRN IVP Nausea & Vomiting 10/20/16 14:00 11/19/16 13:59 Pantoprazole (Protonix) 40 mg DAILY IVP 10/21/16 09:00 11/20/16 08:59 10/21/16 09:54 Polyethylene Glycol (Miralax) 17 gm HSPRN PRN ORAL Constipation 10/20/16 21:00 11/19/16 20:59 Sucralfate (Carafate) 1 gm FOUR TIMES A DAY ORAL 10/21/16 13:00 11/20/16 12:59 10/21/16 13:07 Temazepam (Restoril) 15 mg HSPRN PRN ORAL Insomnia 10/20/16 21:00 10/27/16 20:59 MARCELA SCHULZ Oct 21, 2016 14:36
--- NOTE | 2016-10-21 17:15 | Procedure Note ---
DATE OF PROCEDURE: 10/21/2016 SURGEON: Tr Kaur M.D. PROCEDURE: Upper endoscopy with biopsy. ANESTHESIOLOGIST: Micheline Levy CRNA and also Luzmaria Yeager. INSTRUMENT: Olympus adult flexible upper endoscope. INDICATION: Upper GI bleeding. The procedure, risks, benefits, and possible consequences, including hemorrhage, aspiration, perforation and infection, and alternative treatments, were explained to the patient/legal guardian by Dr. Tr Kaur and the patient/legal guardian understood and accepted these risks. PROCEDURE: After informed consent was obtained and the patient was adequately sedated, Olympus upper endoscope was advanced from the mouth into the second portion of the duodenum and retroflexion was performed in the stomach. The patient had evidence of severe diffuse distal esophagitis. The patient also has evidence of medium-sized hiatal hernia. In the stomach, there was diffuse gastritis. Random biopsy from antrum was obtained to rule out H. pylori infection. The patient also has evidence of some mild to moderate duodenitis. There is no evidence of any active bleeding at this time. At this time, the upper endoscope was retrieved and the procedure was terminated. SUMMARY OF FINDINGS: 1. Distal esophagitis. 2. Hiatal hernia. 3. Gastritis, status post biopsy. 4. Duodenitis. RECOMMENDATIONS: 1. Follow up biopsies and treat accordingly. 2. Add Carafate to Protonix. 3. Elevate the head of the bed at all times. 4. Swallow evaluation. For now, start thin liquid diet until swallow evaluation is done. I want to thank, Dr. Uriarte, for this kind referral. Tr Kaur M.D. DR: JOVITA JOB#: [id number] CC: Rocio Uriarte M.D.; Fax#: [phone]
[2016-10-21] MEDS: cefTRIAXone 1 GM in D5W 55 ML IVPB SCH (17:40)
[2016-10-21] MEDS ORDERED: Nitroglycerin Subl 0.4mg tab (Bottle Of 25) SL PRN (18:45)
[2016-10-21] MEDS ORDERED: Mylanta II UD 30ml ORAL PRN (19:00)
[2016-10-21] MEDS ORDERED: Morphine Sulfate 2mg/ml Inj IVP PRN (19:00)
[2016-10-21] MEDS: Sucralfate 1gm tab ORAL SCH (20:41)
[2016-10-21] MEDS ORDERED: Miralax 17gm pkt ORAL PRN (21:00)
[2016-10-21] MEDS ORDERED: D5NS 1000ml IV ONE (21:46)
[2016-10-21] MEDS ORDERED: Tubing IV Secondary IV ONE (21:46)
[2016-10-22] VITALS: BP 120/80
[2016-10-22 04:00] VITALS: BP 129/81
[2016-10-22 07:37] LABS: ANION GAP 10 (5-15); CALCIUM 8.6 mg/dL (8.6-10.2); CARBON DIOXIDE 24 mEQ/L (20-30); CHLORIDE 107 mEQ/L (98-107); CREATININE 0.9 mg/dL (0.7-1.2); GLOMERULAR FILTRATION RATE > 60 mL/min (>60); HEMOLYSIS 5; POTASSIUM 3.8 mEQ/L (3.4-4.9); SODIUM 141 mEQ/L (135-145)
[2016-10-22 07:43] LABS: BASOPHILS % (AUTO) 1.1 % (0.0-2.0); EOSINOPHILS % (AUTO) 5.1 % (0.0-3.0); LYMPHOCYTES % (AUTO) 28.2 % (20.0-45.0); MEAN CORPUSCULAR HEMOGLOBIN 32.1 PG (27.0-31.0); MEAN CORPUSCULAR HGB CONC 33.2 G/DL (32.0-36.0); MEAN CORPUSCULAR VOLUME 97 FL (80-99); MEAN PLATELET VOLUME 7.5 FL (6.5-10.1); MONOCYTES % (AUTO) 12.8 % (1.0-10.0); NEUTROPHILS % (AUTO) 52.9 % (45.0-75.0); PLATELET COUNT 180 K/UL (150-450); RED BLOOD COUNT 4.44 M/UL (4.70-6.10); RED CELL DISTRIBUTION WIDTH 12.5 % (11.6-14.8); WHITE BLOOD COUNT 8.9 K/UL (4.8-10.8)
[2016-10-22 08:04] VITALS: BP 146/89
[2016-10-22] MEDS ORDERED: Pantoprazole Inj IVP SCH (09:00)
[2016-10-22] MEDS: Sucralfate 1gm tab ORAL SCH ×4 (09:06→20:48)
--- NOTE | 2016-10-22 10:48 | GI Progress Note ---
Assessment/Plan Problems: (1) Psychosis ICD Codes: F29 - Unspecified psychosis not due to a substance or known physiological condition SNOMED: 10606057 (2) Alzheimer disease ICD Codes: G30.9 - Alzheimer's disease, unspecified SNOMED: 55690441 (3) Gastrointestinal hemorrhage ICD Codes: K92.2 - Gastrointestinal hemorrhage, unspecified SNOMED: 47027346 Status: stable Status Narrative Discussed with Dr. Kaur. Assessment/Plan S/P EGD SUMMARY OF FINDINGS: 1. Distal esophagitis. 2. Hiatal hernia. 3. Gastritis, status post biopsy. 4. Duodenitis. RECOMMENDATIONS: 1. Follow up biopsies and treat accordingly. 2. Add Carafate to Protonix. 3. Elevate the head of the bed at all times. 4. Swallow evaluation. For now, start thin liquid diet until swallow evaluation is done. Subjective Subjective limited Objective Last 24 Hour Vital Signs Date Time Temp Pulse Resp B/P Pulse Ox O2 Delivery O2 Flow Rate FiO2 10/22/16 08:04 97.9 68 20 146/89 97 Room Air 10/22/16 04:00 98.2 78 20 129/81 96 Room Air 10/22/16 00:00 98.2 91 18 120/80 96 Room Air 10/21/16 20:00 97.7 80 20 113/90 98 Room Air 10/21/16 16:00 98.1 94 17 143/88 95 Room Air 10/21/16 14:16 97.7 75 16 113/72 97 Room Air 10/21/16 12:12 97.5 74 20 118/65 95 Room Air 10/21/16 12:05 75 20 126/69 95 Room Air 10/21/16 12:00 83 10/21/16 11:58 90 22 99 10/21/16 11:57 74 20 126/69 98 Nasal Cannula 2.0 10/21/16 11:53 94 30 97 10/21/16 11:52 74 20 130/81 97 Nasal Cannula 2.0 10/21/16 11:47 97.5 86 20 131/80 97 Nasal Cannula 2.0 Intake and Output 10/21/16 10/22/16 19:00 07:00 Intake Total 2056 ml 800 ml Balance 2056 ml 800 ml IV Total 2056 ml 800 ml Laboratory Tests Test 10/22/16 06:10 White Blood Count 8.9 K/UL (4.8-10.8) Red Blood Count 4.44 M/UL (4.70-6.10) L Hemoglobin 14.3 G/DL (14.2-18.0) Hematocrit 43.0 % (42.0-52.0) Mean Corpuscular Volume 97 FL (80-99) Mean Corpuscular Hemoglobin 32.1 PG (27.0-31.0) H Mean Corpuscular Hemoglobin Concent 33.2 G/DL (32.0-36.0) Red Cell Distribution Width 12.5 % (11.6-14.8) Platelet Count 180 K/UL (150-450) Mean Platelet Volume 7.5 FL (6.5-10.1) Neutrophils (%) (Auto) 52.9 % (45.0-75.0) Lymphocytes (%) (Auto) 28.2 % (20.0-45.0) Monocytes (%) (Auto) 12.8 % (1.0-10.0) H Eosinophils (%) (Auto) 5.1 % (0.0-3.0) H Basophils (%) (Auto) 1.1 % (0.0-2.0) Sodium Level 141 mEQ/L (135-145) Potassium Level 3.8 mEQ/L (3.4-4.9) Chloride Level 107 mEQ/L (98-107) Carbon Dioxide Level 24 mEQ/L (20-30) Anion Gap 10 (5-15) Blood Urea Nitrogen 7 mg/dL (7-23) Creatinine 0.9 mg/dL (0.7-1.2) Estimat Glomerular Filtration Rate > 60 mL/min (>60) Glucose Level 105 mg/dL (74-106) Calcium Level 8.6 mg/dL (8.6-10.2) Height (Feet): 5 Height (Inches): 7.00 Weight (Pounds): 157 General Appearance: no apparent distress, lethargic Cardiovascular: normal rate Respiratory/Chest: normal breath sounds, no respiratory distress Abdominal Exam: normal bowel sounds, non tender, soft Extremities: normal range of motion Donna Melgar N.P. Oct 22, 2016 10:48
[2016-10-22 11:44] VITALS: BP 126/77
[2016-10-22] MEDS: D5NS 1,000 ML IV SCH (15:17)
[2016-10-22] MEDS: cefTRIAXone 1 GM in D5W 55 ML IVPB SCH ×2 (15:32→15:33)
[2016-10-22 15:50] VITALS: BP 119/86
--- NOTE | 2016-10-22 15:52 | Pulmonology Progress Note ---
Assessment/Plan Problems: (1) Sepsis (2) Gastrointestinal hemorrhage (3) Alzheimer disease (4) COPD (chronic obstructive pulmonary disease) (5) Psychosis (6) Limited mobility (7) UTI (urinary tract infection) Assessment/Plan egd done, showing esophagitis swallow study done h/h lower but still normal resume feeding watch cbc med/surg Proteus in Urine, sensitive to Ceftriaxone Subjective ROS Limited/Unobtainable: No Constitutional: Reports: no symptoms HEENT: Repors: no symptoms Allergies: Coded Allergies: No Known Allergies (Unverified , 10/20/16) Objective Last 24 Hour Vital Signs Date Time Temp Pulse Resp B/P Pulse Ox O2 Delivery O2 Flow Rate FiO2 10/22/16 15:50 97.2 85 18 119/86 97 Room Air 10/22/16 11:44 97.6 110 19 126/77 97 Room Air 10/22/16 08:04 97.9 68 20 146/89 97 Room Air 10/22/16 04:00 98.2 78 20 129/81 96 Room Air 10/22/16 00:00 98.2 91 18 120/80 96 Room Air 10/21/16 20:00 97.7 80 20 113/90 98 Room Air 10/21/16 16:00 98.1 94 17 143/88 95 Room Air Intake and Output 10/21/16 10/22/16 19:00 07:00 Intake Total 2056 ml 800 ml Balance 2056 ml 800 ml IV Total 2056 ml 800 ml General Appearance: WD/WN HEENT: normocephalic, atraumatic Respiratory/Chest: chest wall non-tender, lungs clear Cardiovascular: normal peripheral pulses, regular rhythm Abdomen: normal bowel sounds, soft, non tender Extremities: no cyanosis, no clubbing Skin: no rash Microbiology Date/Time Source Procedure Growth Status 10/20/16 09:20 Nasal Nares MRSA Culture - Final NO METHICILLIN RESISTANT STAPH AUREUS... Complete 10/20/16 11:05 Urine,Clean Catch Urine Culture - Final Proteus Mirabilis Complete 10/20/16 09:20 Rectum VRE Culture - Final NO VANCOMYCIN RESISTANT ENTEROCOCCUS ... Complete Laboratory Tests 10/22/16 06:10: White Blood Count 8.9, Red Blood Count 4.44L, Hemoglobin 14.3, Hematocrit 43.0, Mean Corpuscular Volume 97, Mean Corpuscular Hemoglobin 32.1H, Mean Corpuscular Hemoglobin Concent 33.2, Red Cell Distribution Width 12.5, Platelet Count 180, Mean Platelet Volume 7.5, Neutrophils (%) (Auto) 52.9, Lymphocytes (%) (Auto) 28.2, Monocytes (%) (Auto) 12.8H, Eosinophils (%) (Auto) 5.1H, Basophils (%) ( Auto) 1.1, Sodium Level 141, Potassium Level 3.8, Chloride Level 107, Carbon Dioxide Level 24, Anion Gap 10, Blood Urea Nitrogen 7, Creatinine 0.9, Estimat Glomerular Filtration Rate > 60, Glucose Level 105, Calcium Level 8.6 Current Medications Medications (Trade) Dose Ordered Sig/Ant Route PRN Reason Start Time Stop Time Status Last Admin Dose Admin Acetaminophen (Tylenol) 650 mg Q4H PRN ORAL fever>100.5 10/21/16 19:00 11/20/16 18:59 Al Hydroxide/Mg Hydroxide (Mylanta II) 30 ml Q6H PRN ORAL dyspepsia 10/21/16 19:00 11/20/16 18:59 Ceftriaxone Sodium 1 gm/ Dextrose 55 ml @ 110 mls/hr Q24H IVPB 10/22/16 16:00 10/29/16 15:59 10/22/16 15:33 Dextrose (Dextrose 50%) STAT PRN IV Hypoglycemia 10/21/16 19:00 11/20/16 18:59 Dextrose/Sodium Chloride (D5ns) 1,000 ml @ 100 mls/hr Q10H IV 10/21/16 20:00 11/20/16 19:59 10/22/16 15:17 Diphenhydramine HCl (Benadryl) 25 mg Q6H PRN ORAL Itching/Pruritis 10/21/16 19:00 11/20/16 18:59 Morphine Sulfate (Morphine Sulfate) 2 mg Q4H PRN IVP severe Pain (Pain Scale 7-10) 10/21/16 19:00 10/28/16 18:59 Nitroglycerin (Ntg) 0.4 mg Q5M X 3 DOSES PRN SL Prn Chest Pain 10/21/16 18:45 11/20/16 18:44 Ondansetron HCl (Zofran) 4 mg Q6H PRN IVP Nausea & Vomiting 10/21/16 19:00 11/20/16 18:59 Pantoprazole (Protonix) 40 mg DAILY ORAL 10/23/16 09:00 11/22/16 08:59 Polyethylene Glycol (Miralax) 17 gm HSPRN PRN ORAL Constipation 10/21/16 21:00 11/20/16 20:59 Sucralfate (Carafate) 1 gm FOUR TIMES A DAY ORAL 10/21/16 21:00 11/20/16 20:59 10/22/16 12:37 Temazepam (Restoril) 15 mg HSPRN PRN ORAL Insomnia 10/21/16 21:00 10/28/16 20:59 MARCELA SCHULZ Oct 22, 2016 15:52
[2016-10-22] MEDS ORDERED: D5NS 1000ml IV ONE (17:10)
[2016-10-22 20:00] VITALS: BP 141/86
[2016-10-23] VITALS: BP 94/51
[2016-10-23] MEDS: D5NS 1,000 ML IV SCH ×2 (02:00→09:13)
[2016-10-23 04:00] VITALS: BP 111/80
[2016-10-23 06:59] LABS: BASOPHILS % (AUTO) 1.3 % (0.0-2.0); EOSINOPHILS % (AUTO) 5.6 % (0.0-3.0); LYMPHOCYTES % (AUTO) 26.4 % (20.0-45.0); MEAN CORPUSCULAR HEMOGLOBIN 29.9 PG (27.0-31.0); MEAN CORPUSCULAR HGB CONC 31.5 G/DL (32.0-36.0); MEAN CORPUSCULAR VOLUME 95 FL (80-99); MEAN PLATELET VOLUME 6.5 FL (6.5-10.1); MONOCYTES % (AUTO) 13.6 % (1.0-10.0); NEUTROPHILS % (AUTO) 53.1 % (45.0-75.0); PLATELET COUNT 191 K/UL (150-450); RED BLOOD COUNT 4.89 M/UL (4.70-6.10); RED CELL DISTRIBUTION WIDTH 12.5 % (11.6-14.8)
[2016-10-23 07:01] LABS: ALANINE AMINOTRANSFERASE 19 U/L (3-41); ALBUMIN/GLOBULIN RATIO 0.8 (1.0-2.7); ANION GAP 11 (5-15); ASPARTATE AMINO TRANSFERASE 24 U/L (5-40); CALCIUM 8.6 mg/dL (8.6-10.2); CARBON DIOXIDE 24 mEQ/L (20-30); CHLORIDE 105 mEQ/L (98-107); CREATININE 0.8 mg/dL (0.7-1.2); GLOMERULAR FILTRATION RATE > 60 mL/min (>60); HEMOLYSIS 2; POTASSIUM 3.5 mEQ/L (3.4-4.9); SODIUM 140 mEQ/L (135-145)
[2016-10-23 07:58] LABS: CRP QUANT 1.1 mg/dL (< 0.5); MAGNESIUM 1.6 mg/dL (1.7-2.5); PHOSPHORUS 3.4 mg/dL (2.5-4.8)
[2016-10-23 08:00] VITALS: BP 126/82
[2016-10-23] MEDS: Sucralfate 1gm tab ORAL SCH ×2 (09:12→13:26)
--- NOTE | 2016-10-23 10:46 | GI Progress Note ---
Assessment/Plan Problems: (1) Psychosis ICD Codes: F29 - Unspecified psychosis not due to a substance or known physiological condition SNOMED: 97306343 (2) Alzheimer disease ICD Codes: G30.9 - Alzheimer's disease, unspecified SNOMED: 43829194 (3) Gastrointestinal hemorrhage ICD Codes: K92.2 - Gastrointestinal hemorrhage, unspecified SNOMED: 35558890 Status: stable Status Narrative Discussed with Dr. Kaur. Assessment/Plan S/P EGD SUMMARY OF FINDINGS: 1. Distal esophagitis. 2. Hiatal hernia. 3. Gastritis, status post biopsy. 4. Duodenitis. RECOMMENDATIONS: 1. Follow up biopsies and treat accordingly. 2. Add Carafate to Protonix. 3. Elevate the head of the bed at all times. 4. Regular Diet Subjective Subjective limited Objective Last 24 Hour Vital Signs Date Time Temp Pulse Resp B/P Pulse Ox O2 Delivery O2 Flow Rate FiO2 10/23/16 08:00 97.7 70 20 126/82 94 Room Air 10/23/16 04:00 97.9 72 20 111/80 96 Room Air 10/23/16 00:00 98.2 70 20 94/51 99 Room Air 10/22/16 20:00 98.2 83 20 141/86 96 Room Air 10/22/16 15:50 97.2 85 18 119/86 97 Room Air 10/22/16 11:44 97.6 110 19 126/77 97 Room Air Intake and Output 10/22/16 10/23/16 19:00 07:00 Intake Total 940 ml 900 ml Balance 940 ml 900 ml Intake Oral 840 ml IV Total 100 ml 900 ml # Voids 4 3 # Bowel Movements 1 Laboratory Tests Test 10/23/16 06:15 White Blood Count 8.0 K/UL (4.8-10.8) Red Blood Count 4.89 M/UL (4.70-6.10) Hemoglobin 14.6 G/DL (14.2-18.0) Hematocrit 46.3 % (42.0-52.0) Mean Corpuscular Volume 95 FL (80-99) Mean Corpuscular Hemoglobin 29.9 PG (27.0-31.0) Mean Corpuscular Hemoglobin Concent 31.5 G/DL (32.0-36.0) L Red Cell Distribution Width 12.5 % (11.6-14.8) Platelet Count 191 K/UL (150-450) Mean Platelet Volume 6.5 FL (6.5-10.1) Neutrophils (%) (Auto) 53.1 % (45.0-75.0) Lymphocytes (%) (Auto) 26.4 % (20.0-45.0) Monocytes (%) (Auto) 13.6 % (1.0-10.0) H Eosinophils (%) (Auto) 5.6 % (0.0-3.0) H Basophils (%) (Auto) 1.3 % (0.0-2.0) Erythrocyte Sedimentation Rate 17 MM/HR (0-20) Sodium Level 140 mEQ/L (135-145) Potassium Level 3.5 mEQ/L (3.4-4.9) Chloride Level 105 mEQ/L (98-107) Carbon Dioxide Level 24 mEQ/L (20-30) Anion Gap 11 (5-15) Blood Urea Nitrogen 6 mg/dL (7-23) L Creatinine 0.8 mg/dL (0.7-1.2) Estimat Glomerular Filtration Rate > 60 mL/min (>60) Glucose Level 100 mg/dL (74-106) Calcium Level 8.6 mg/dL (8.6-10.2) Phosphorus Level 3.4 mg/dL (2.5-4.8) Magnesium Level 1.6 mg/dL (1.7-2.5) L Total Bilirubin 0.9 mg/dL (0.0-1.2) Aspartate Amino Transf (AST/SGOT) 24 U/L (5-40) Alanine Aminotransferase (ALT/SGPT) 19 U/L (3-41) Alkaline Phosphatase 90 U/L (40-129) C-Reactive Protein, Quantitative 1.1 mg/dL (< 0.5) H Total Protein 6.0 g/dL (6.6-8.7) L Albumin 2.8 g/dL (3.5-5.2) L Globulin 3.2 g/dL Albumin/Globulin Ratio 0.8 (1.0-2.7) L Height (Feet): 5 Height (Inches): 7.00 Weight (Pounds): 157 General Appearance: no apparent distress, alert Cardiovascular: normal rate Respiratory/Chest: normal breath sounds, no respiratory distress Abdominal Exam: normal bowel sounds, non tender, soft Extremities: non-tender Donna Melgar N.P. Oct 23, 2016 10:46
--- NOTE | 2016-10-23 10:50 | Infectious Diseases Prog Note ---
Assessment/Plan Assessment/Plan ID consult dictated # [id number] Subjective Allergies: Coded Allergies: No Known Allergies (Unverified , 10/20/16) Objective Vital Signs Last 24 Hour Vital Signs Date Time Temp Pulse Resp B/P Pulse Ox O2 Delivery O2 Flow Rate FiO2 10/23/16 08:00 97.7 70 20 126/82 94 Room Air 10/23/16 04:00 97.9 72 20 111/80 96 Room Air 10/23/16 00:00 98.2 70 20 94/51 99 Room Air 10/22/16 20:00 98.2 83 20 141/86 96 Room Air 10/22/16 15:50 97.2 85 18 119/86 97 Room Air 10/22/16 11:44 97.6 110 19 126/77 97 Room Air Height (Feet): 5 Height (Inches): 7.00 Weight (Pounds): 157 Microbiology Date/Time Source Procedure Growth Status 10/20/16 11:05 Urine,Clean Catch Urine Culture - Final Proteus Mirabilis Complete Laboratory Tests Test 10/23/16 06:15 White Blood Count 8.0 K/UL (4.8-10.8) Red Blood Count 4.89 M/UL (4.70-6.10) Hemoglobin 14.6 G/DL (14.2-18.0) Hematocrit 46.3 % (42.0-52.0) Mean Corpuscular Volume 95 FL (80-99) Mean Corpuscular Hemoglobin 29.9 PG (27.0-31.0) Mean Corpuscular Hemoglobin Concent 31.5 G/DL (32.0-36.0) L Red Cell Distribution Width 12.5 % (11.6-14.8) Platelet Count 191 K/UL (150-450) Mean Platelet Volume 6.5 FL (6.5-10.1) Neutrophils (%) (Auto) 53.1 % (45.0-75.0) Lymphocytes (%) (Auto) 26.4 % (20.0-45.0) Monocytes (%) (Auto) 13.6 % (1.0-10.0) H Eosinophils (%) (Auto) 5.6 % (0.0-3.0) H Basophils (%) (Auto) 1.3 % (0.0-2.0) Erythrocyte Sedimentation Rate 17 MM/HR (0-20) Sodium Level 140 mEQ/L (135-145) Potassium Level 3.5 mEQ/L (3.4-4.9) Chloride Level 105 mEQ/L (98-107) Carbon Dioxide Level 24 mEQ/L (20-30) Anion Gap 11 (5-15) Blood Urea Nitrogen 6 mg/dL (7-23) L Creatinine 0.8 mg/dL (0.7-1.2) Estimat Glomerular Filtration Rate > 60 mL/min (>60) Glucose Level 100 mg/dL (74-106) Calcium Level 8.6 mg/dL (8.6-10.2) Phosphorus Level 3.4 mg/dL (2.5-4.8) Magnesium Level 1.6 mg/dL (1.7-2.5) L Total Bilirubin 0.9 mg/dL (0.0-1.2) Aspartate Amino Transf (AST/SGOT) 24 U/L (5-40) Alanine Aminotransferase (ALT/SGPT) 19 U/L (3-41) Alkaline Phosphatase 90 U/L (40-129) C-Reactive Protein, Quantitative 1.1 mg/dL (< 0.5) H Total Protein 6.0 g/dL (6.6-8.7) L Albumin 2.8 g/dL (3.5-5.2) L Globulin 3.2 g/dL Albumin/Globulin Ratio 0.8 (1.0-2.7) L Current Medications Medications (Trade) Dose Ordered Sig/Ant Route PRN Reason Start Time Stop Time Status Last Admin Dose Admin Acetaminophen (Tylenol) 650 mg Q4H PRN ORAL fever>100.5 10/21/16 19:00 11/20/16 18:59 Al Hydroxide/Mg Hydroxide (Mylanta II) 30 ml Q6H PRN ORAL dyspepsia 10/21/16 19:00 11/20/16 18:59 Ceftriaxone Sodium 1 gm/ Dextrose 55 ml @ 110 mls/hr Q24H IVPB 10/22/16 16:00 10/29/16 15:59 10/22/16 15:33 Dextrose (Dextrose 50%) STAT PRN IV Hypoglycemia 10/21/16 19:00 11/20/16 18:59 Dextrose/Sodium Chloride (D5ns) 1,000 ml @ 100 mls/hr Q10H IV 10/21/16 20:00 11/20/16 19:59 10/23/16 09:13 Diphenhydramine HCl (Benadryl) 25 mg Q6H PRN ORAL Itching/Pruritis 10/21/16 19:00 11/20/16 18:59 Morphine Sulfate (Morphine Sulfate) 2 mg Q4H PRN IVP severe Pain (Pain Scale 7-10) 10/21/16 19:00 10/28/16 18:59 Nitroglycerin (Ntg) 0.4 mg Q5M X 3 DOSES PRN SL Prn Chest Pain 10/21/16 18:45 11/20/16 18:44 Ondansetron HCl (Zofran) 4 mg Q6H PRN IVP Nausea & Vomiting 10/21/16 19:00 11/20/16 18:59 Pantoprazole 40 mg 40 mg DAILY ORAL 10/23/16 09:00 11/22/16 08:59 10/23/16 09:12 Polyethylene Glycol (Miralax) 17 gm HSPRN PRN ORAL Constipation 10/21/16 21:00 11/20/16 20:59 Potassium Phosphate/Sodium Chloride (Potassium Phosphate/NS) 560 ml @ 93.333 mls/ hr ONCE ONCE IV 10/23/16 11:00 10/23/16 16:59 Sucralfate (Carafate) 1 gm FOUR TIMES A DAY ORAL 10/21/16 21:00 11/20/16 20:59 10/23/16 09:12 Temazepam (Restoril) 15 mg HSPRN PRN ORAL Insomnia 10/21/16 21:00 10/28/16 20:59 TEJA STAFFORD Oct 23, 2016 10:50
[2016-10-23] MEDS ORDERED: Potassium Phosphate 30 MM in Sodium Chloride 550 ML IV ONE (11:00)
[2016-10-23 12:00] VITALS: BP 128/77
[2016-10-23] MEDS ORDERED: Ciprofloxacin Opth Soln BOTH EYES SCH (12:00)
--- NOTE | 2016-10-23 15:28 | Pulmonology Progress Note ---
Assessment/Plan Problems: (1) Sepsis (2) Gastrointestinal hemorrhage (3) Alzheimer disease (4) COPD (chronic obstructive pulmonary disease) (5) Psychosis (6) Limited mobility (7) UTI (urinary tract infection) Assessment/Plan egd done, showing esophagitis swallow study done tolerating feeding feeding watch cbc med/surg Proteus in Urine, sensitive to Ceftriaxone dc to fpc Subjective ROS Limited/Unobtainable: No Constitutional: Reports: no symptoms HEENT: Repors: no symptoms Respiratory: Reports: no symptoms Allergies: Coded Allergies: No Known Allergies (Unverified , 10/20/16) Objective Last 24 Hour Vital Signs Date Time Temp Pulse Resp B/P Pulse Ox O2 Delivery O2 Flow Rate FiO2 10/23/16 12:00 98.0 76 18 128/77 96 Room Air 10/23/16 08:00 97.7 70 20 126/82 94 Room Air 10/23/16 04:00 97.9 72 20 111/80 96 Room Air 10/23/16 00:00 98.2 70 20 94/51 99 Room Air 10/22/16 20:00 98.2 83 20 141/86 96 Room Air 10/22/16 15:50 97.2 85 18 119/86 97 Room Air Intake and Output 10/22/16 10/23/16 19:00 07:00 Intake Total 940 ml 900 ml Balance 940 ml 900 ml Intake Oral 840 ml IV Total 100 ml 900 ml # Voids 4 3 # Bowel Movements 1 General Appearance: WD/WN HEENT: normocephalic, atraumatic Respiratory/Chest: chest wall non-tender, lungs clear Cardiovascular: normal peripheral pulses, normal rate Abdomen: normal bowel sounds, no organomegaly Genitourinary: normal external genitalia 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 Laboratory Tests 10/23/16 06:15: White Blood Count 8.0, Red Blood Count 4.89, Hemoglobin 14.6, Hematocrit 46.3, Mean Corpuscular Volume 95, Mean Corpuscular Hemoglobin 29.9, Mean Corpuscular Hemoglobin Concent 31.5L, Red Cell Distribution Width 12.5, Platelet Count 191, Mean Platelet Volume 6.5, Neutrophils (%) (Auto) 53.1, Lymphocytes (%) (Auto) 26.4, Monocytes (%) (Auto) 13.6H, Eosinophils (%) (Auto) 5.6H, Basophils (%) ( Auto) 1.3, Erythrocyte Sedimentation Rate 17, Sodium Level 140, Potassium Level 3.5, Chloride Level 105, Carbon Dioxide Level 24, Anion Gap 11, Blood Urea Nitrogen 6L, Creatinine 0.8, Estimat Glomerular Filtration Rate > 60, Glucose Level 100, Calcium Level 8.6, Phosphorus Level 3.4, Magnesium Level 1.6L, Total Bilirubin 0.9, Aspartate Amino Transf (AST/SGOT) 24, Alanine Aminotransferase ( ALT/SGPT) 19, Alkaline Phosphatase 90, C-Reactive Protein, Quantitative 1.1H, Total Protein 6.0L, Albumin 2.8L, Globulin 3.2, Albumin/Globulin Ratio 0.8L Current Medications Medications (Trade) Dose Ordered Sig/Ant Route PRN Reason Start Time Stop Time Status Last Admin Dose Admin Acetaminophen (Tylenol) 650 mg Q4H PRN ORAL fever>100.5 10/21/16 19:00 11/20/16 18:59 Al Hydroxide/Mg Hydroxide (Mylanta II) 30 ml Q6H PRN ORAL dyspepsia 10/21/16 19:00 11/20/16 18:59 Ceftriaxone Sodium 1 gm/ Dextrose 55 ml @ 110 mls/hr Q24H IVPB 10/22/16 16:00 10/29/16 15:59 10/22/16 15:33 Ciprofloxacin (Ciloxan Opth Soln) 1 drop Q6HR BOTH EYES 10/23/16 12:00 10/30/16 11:59 10/23/16 13:26 Dextrose (Dextrose 50%) STAT PRN IV Hypoglycemia 10/21/16 19:00 11/20/16 18:59 Dextrose/Sodium Chloride (D5ns) 1,000 ml @ 100 mls/hr Q10H IV 10/21/16 20:00 11/20/16 19:59 10/23/16 09:13 Diphenhydramine HCl (Benadryl) 25 mg Q6H PRN ORAL Itching/Pruritis 10/21/16 19:00 11/20/16 18:59 Morphine Sulfate (Morphine Sulfate) 2 mg Q4H PRN IVP severe Pain (Pain Scale 7-10) 10/21/16 19:00 10/28/16 18:59 Nitroglycerin (Ntg) 0.4 mg Q5M X 3 DOSES PRN SL Prn Chest Pain 10/21/16 18:45 11/20/16 18:44 Ondansetron HCl (Zofran) 4 mg Q6H PRN IVP Nausea & Vomiting 10/21/16 19:00 11/20/16 18:59 Pantoprazole 40 mg 40 mg DAILY ORAL 10/23/16 09:00 11/22/16 08:59 10/23/16 09:12 Polyethylene Glycol (Miralax) 17 gm HSPRN PRN ORAL Constipation 10/21/16 21:00 11/20/16 20:59 Potassium Phosphate/Sodium Chloride (Potassium Phosphate/NS) 560 ml @ 93.333 mls/ hr ONCE ONCE IV 10/23/16 11:00 10/23/16 16:59 10/23/16 12:04 Sucralfate (Carafate) 1 gm FOUR TIMES A DAY ORAL 10/21/16 21:00 11/20/16 20:59 10/23/16 13:26 Temazepam (Restoril) 15 mg HSPRN PRN ORAL Insomnia 10/21/16 21:00 10/28/16 20:59 MARCELA SCHULZ Oct 23, 2016 15:28
[2016-10-23 16:00] VITALS: BP 136/80
[2016-10-23] MEDS: cefTRIAXone 1 GM in D5W 55 ML IVPB SCH (16:11)
[2016-10-23] MEDS ORDERED: ROCEPHIN 11 GM/50 ML IVPB (16:20)
[2016-10-23] MEDS ORDERED: D5NS 1000ml IV ONE (17:24)
[2016-10-23] MEDS ORDERED: Tubing IV Secondary IV ONE (17:24)
--- NOTE | 2016-10-23 20:30 | Consultation ---
DATE OF CONSULTATION: 10/23/2016 INFECTIOUS DISEASE CONSULT This consult is for coverage of Dr. Cannon. PRIMARY ATTENDING PHYSICIAN: Rocio Uriarte M.D. REASON FOR CONSULT: UTI. HISTORY OF PRESENT ILLNESS: The patient is a 71-year-old male admitted on 10/20/2016 from a care home facility because of coffee-ground vomiting. The patient has dementia and he is not a source of a history. A urine culture is growing Proteus mirabilis. The patient had EGD that shows esophagitis, hiatal hernia, gastritis, and duodenitis. PAST MEDICAL HISTORY: Significant for dementia with psychosis and contractures. MEDICATIONS: Potassium phosphate, sodium chloride, Protonix, ceftriaxone since yesterday, MiraLax, sucralfate, Tylenol, Mylanta, , and morphine. ALLERGIES: No known drug allergies. REVIEW OF SYSTEMS: Unobtainable. PHYSICAL EXAMINATION: VITAL SIGNS: Temperature 97.7 degrees, pulse 70, and blood pressure is 176/82. GENERAL APPEARANCE: Awake and nonverbal. HEAD AND NECK: Has white conjunctivae. Cannot open left eye because of secretion. HEART: Regular. LUNGS: Clear. ABDOMEN: Soft. EXTREMITIES: He has no edema. LABORATORY DATA: WBC 8000 coming down from 11.7, hemoglobin is 14.6, hematocrit 46.3, and platelets is 191,000. Sodium 140, potassium 2.5, chloride 105, bicarbonate 24, BUN 6, and creatinine 0.8. Glucose 100. Albumin is 2.8. UA showed Proteus mirabilis. MRSA and VRE screen were negative. IMPRESSION: Pyuria and bacteriuria, may have urinary tract infection. The patient has upper gastrointestinal bleeding secondary to esophagitis, gastritis, and duodenitis. He also has hiatal hernia. Has conjunctivitis of the left eye. Has dementia. RECOMMENDATIONS: We will continue with the ceftriaxone. We will add Cipro eyedrops for few days. At the end of my exam, I thank Dr. Uriarte for involving me in the care of this patient. Daryl Fontaine M.D. DR: THOMAS JOB#: [id number] CC:
[2016-10-26] MEDS ORDERED: CARAFATE1 G1 ORAL (10:03)
[2016-10-26] MEDS ORDERED: PROTONIX40 MG ORAL (10:03)
--- NOTE | 2016-10-26 10:03 | Discharge Summary ---
Discharge Summary Hospital Course Date of Admission Oct 20, 2016 at 11:28 Date of Discharge Oct 23, 2016 at 17:25 Admitting Diagnosis coffee ground emesis/concern for UGI bleed. ZANE Maravilla is a 71 year old male who was admitted on Oct 20, 2016 at 11:28 for Coffee Ground Emesis/Corcern For Upper Gastro Hospital Course dc summary #[id number] Discharge Medications New Medications: Pantoprazole* (Protonix*) 40 Mg Tablet.dr 40 MG ORAL DAILY, #30 TAB Sucralfate* (Carafate*) 1 Gm Tablet 1 GM ORAL FOUR TIMES A DAY, #120 TAB Continued Medications: Acetaminophen (Tylenol) 325 Mg Tablet 500 MG ORAL Q4HR PRN for Prn Pain/Headache/Temp > 101, #30 TAB 0 Refills Ascorbic Acid* (Vitamin C*) 500 Mg Tablet 500 MG ORAL DAILY, #30 TAB 0 Refills Aspirin* (Aspir 81*) 81 Mg Tablet.dr 81 MG ORAL DAILY, TAB Ceftriaxone Sod (Ceftriaxone 1 gm-D5w Bag) 1 Gm/50 Ml Piggyback 1 GM IVPB Every 24 hours for 3 Days, BAG Docusate Sodium* (Docusate Sodium*) 100 Mg Capsule 100 MG ORAL DAILY, CAP Enalapril Maleate* (Vasotec*) 5 Mg Tablet 5 MG ORAL EVERY 12 HOURS, TAB Memantine Hcl (Namenda Xr) 28 Mg Cap.spr.24 28 MG PO DAILY, CAP Multivitamin With Minerals (Multivitamins With Minerals*) 1 Each Tablet 1 TAB ORAL DAILY, TAB Discharge Condition Upon Discharge: stable Discharge Disposition Patient was discharged to SNF/Subacute Facility(03) Discharge Diagnoses: Discharge Instructions Discharge Instructions Special Instructions I have been assigned to complete a D/C Summary on this account. I was not involved in the patient management Kacy Gilliam NP ([facility]te[place]) Oct 26, 2016 10:03
--- NOTE | 2016-10-26 12:30 | Discharge Summary 2 SIG ---
DATE OF ADMISSION: 10/20/2016 DATE OF DISCHARGE: 10/23/2016 REASON FOR ADMISSION: 71-year-old male, resident of a correction facility with past medical history significant for COPD, GERD, dementia, schizophrenia, presented for evaluation due to the episode of coffee-ground emesis. No report of fevers. No reports of pain. In the emergency department, WBC - 11.7, hemoglobin and hematocrit . Electrolytes . The patient was admitted to telemetry floor for further management. ADMITTING DIAGNOSES: 1. Gastrointestinal hemorrhage. 2. Hematemesis 3. Chronic obstructive pulmonary disease. 4. Alzheimer dementia. HOSPITAL STAY: The patient was admitted. GI consult was requested. The patient was initially kept NPO, IV fluids provided. GI scheduled for upper endoscopy with biopsy. The patient subsequently undergone upper endoscopy with biopsy which revealed distal esophagitis, hiatal hernia, gastritis, status post biopsy, and duodenitis. Biopsy revealed mild chronic gastritis. No metaplasia, no dysplasia, and positive for H. pylori infection. The results of biopsy became available on 10/26/2016, the patient was already discharged. Discussed with the GI specialist, the patient will be contacted and treatment for the H pylori will be initiated promptly. Swallow evaluation was performed. The patient was diagnosed with dysphagia. Oral diet was recommended for quality of life with strict aspiration/reflux precaution and one-to-one feeding. The patient started on PPI inhibitor and Carafate. Head of bed was elevated at all times. Hemoglobin and hematocrit were closely monitored and were stable. Supplemental oxygen provided as needed to keep pulse oximetry above 92%. Pulmonary toilet provided as needed. Urinalysis was positive for urinary tract infection. Urine culture grew Proteus ID closely followed. The patient was on antibiotics. The patient started on diet for quality of life with strict aspiration precaution and one-to-one feeding, able to tolerate.No further episodes of GI bleeding. The patient was cleared for discharge to correction facility. DISCHARGE DIAGNOSES: 1. Gastrointestinal hemorrhage, 2. Status post esophagogastroduodenoscopy with finding of distal esophagitis, hiatal hernia, gastritis, and duodenitis. 3. Helicobacter pylori infection. 4. Urinary tract infection with Proteus. 5. Chronic obstructive pulmonary disease. 6. Dysphagia. 7. Alzheimer dementia with psychosis. DISCHARGE MEDICATIONS: See medication reconciliation list. DISCHARGE INSTRUCTIONS: The patient was discharged to correction facility. Follow up with medical doctor at the facility. Follow up with the GI doctor for treatment of H pylori. Rocio Uriarte M.D. I have been assigned to dictate discharge summary on this account and I was not involved in the patient's management. Kacy RivasColer-Goldwater Specialty Hospitalfranklin NHardik DR: ADINA JOB#: [id number] CC: L[facility]
== END 2016-10-23 17:25 | DRG 378 ==
LOC: EDBD 09:17 → EMR 09:55 → 2E 11:28 → EDBEDREQ 12:28 → 2E 21:04 → 4E 10-21 18:28
PROC: 0DB78ZX Excision of Stomach, Pylorus, Via Natural or Artificial Opening Endoscopic, Diagnostic (ICD-10-PCS; principal; 2016-10-21 11:38)
DX: K92.2 Gastrointestinal hemorrhage, unspecified (principal); N39.0 Urinary tract infection, site not specified; G30.9 Alzheimer's disease, unspecified; J44.9 Chronic obstructive pulmonary disease, unspecified; R13.10 Dysphagia, unspecified; F02.80 Dementia in other diseases classified elsewhere, unspecified severity, without behavioral disturbance, psychotic disturbance, mood disturbance, and anxiety; K20.9 Esophagitis, unspecified; F29 Unspecified psychosis not due to a substance or known physiological condition; Z74.09 Other reduced mobility; K44.9 Diaphragmatic hernia without obstruction or gangrene; K29.70 Gastritis, unspecified, without bleeding; K29.80 Duodenitis without bleeding; B96.81 Helicobacter pylori [H. pylori] as the cause of diseases classified elsewhere; B96.4 Proteus (mirabilis) (morganii) as the cause of diseases classified elsewhere
CPT/HCPCS: 36415; 80048; 80053; 81003; 82150; 82248; 82962; 83690; 83735; 84100; 84484; 85025; 85610; 85651; 85730; 86140; 86850; 86900; 86901; 87081; 87086; 87181; 93005; 93970; 94003; 94150; J2405

== ENCOUNTER 2016-11-02 09:58 | Inpatient (IN) | payer MEDICARE, MEDICAID ==
[~2016-11-02] VITALS: Ht 182.9 cm; Wt 81.6 kg
[~2016-11-02 09:58] MED LIST: ASPIR 8181 MG ORAL; CARAFATE1 G1 ORAL; DOCUSATE SODIU100 MG ORAL; MULTIVITAMINS1 EAC8 ORAL; NAMENDA XR28 MG PO; PROTONIX40 MG ORAL; ROCEPHIN 11 GM/50 ML IVPB; TYLENOL325 MG ORAL; VASOTEC5 MG ORAL; VITAMIN C500 M1 ORAL
[2016-11-02 10:00] VITALS: BP 121/105
[2016-11-02 10:22] LABS: BASOPHILS % (AUTO) 0.8 % (0.0-2.0); EOSINOPHILS % (AUTO) 2.3 % (0.0-3.0); LYMPHOCYTES % (AUTO) 19.1 % (20.0-45.0); MEAN CORPUSCULAR HEMOGLOBIN 29.3 PG (27.0-31.0); MEAN CORPUSCULAR HGB CONC 30.7 G/DL (32.0-36.0); MEAN CORPUSCULAR VOLUME 95 FL (80-99); MEAN PLATELET VOLUME 6.3 FL (6.5-10.1); MONOCYTES % (AUTO) 6.8 % (1.0-10.0); PLATELET COUNT 312 K/UL (150-450); RED BLOOD COUNT 6.14 M/UL (4.70-6.10); RED CELL DISTRIBUTION WIDTH 12.6 % (11.6-14.8); WHITE BLOOD COUNT 12.2 K/UL (4.8-10.8)
[2016-11-02 10:32] LABS: INR 1.2 (0.9-1.1); PROTHROMBIN TIME 12.1 SEC (9.30-11.50)
[2016-11-02 10:36] LABS: ALANINE AMINOTRANSFERASE 36 U/L (3-41); ALBUMIN/GLOBULIN RATIO 1.1 (1.0-2.7); ANION GAP 14 (5-15); ASPARTATE AMINO TRANSFERASE 35 U/L (5-40); CALCIUM 9.8 mg/dL (8.6-10.2); CARBON DIOXIDE 25 mEQ/L (20-30); CHLORIDE 100 mEQ/L (98-107); CREATININE 0.9 mg/dL (0.7-1.2); GLOMERULAR FILTRATION RATE > 60 mL/min (>60); HEMOLYSIS 1; POTASSIUM 4.3 mEQ/L (3.4-4.9); SODIUM 139 mEQ/L (135-145); TOTAL PROTEIN 7.9 g/dL (6.6-8.7)
[2016-11-02] MEDS ORDERED: NS IVP ONE (10:45)
[2016-11-02] MEDS ORDERED: NS 55 ML IV ONE (10:45)
[2016-11-02] MEDS ORDERED: ESOMEPRAZOLE SODIUM IVP ONE (10:45)
--- NOTE | 2016-11-02 11:06 | Emergency Room Report ---
History of Present Illness General Chief Complaint: Gastrointestinal Illness Source: Patient Present Illness HPI [id number] non-verbal with alleged 200cc coffee ground emesis at SNF this morning. patient not contributing to HPI Known aphasic, schizophrenia PMHX: HTN, dementia, schizophrenia Had endoscopy 10/21/16: severe esophagitis, hiatal hernia, diffuse gastritis, duodenitis No active vomiting in ED Allergies: Coded Allergies: No Known Allergies (Unverified , 10/20/16) Patient History Past Medical History: other - see hpi Past Surgical History: other - See previous HPI Pertinent Family History: none Social History: Denies: alcohol use, drug use, smoking Immunizations: UTD Reviewed Nursing Documentation: PMH: Agreed, PSxH: Agreed Nursing Documentation-PMH Hx Cardiac Problems: No Hx Hypertension: Yes Hx Pacemaker: No Hx Asthma: No Hx COPD: Yes Hx Diabetes: No Hx Cancer: No Hx Gastrointestinal Problems: Yes - g.i bleed,gerd,uti Hx Dialysis: No History Of Psychiatric Problem: No Hx Cerebrovascular Accident: No Hx Seizures: No Review of Systems All Other Systems: limited - Aphasic, non-verbal Physical Exam Vital Signs Date Time Temp Pulse Resp B/P Pulse Ox O2 Delivery O2 Flow Rate FiO2 11/02/16 09:51 97.9 96 16 129/79 98 Room Air Sp02 EP Interpretation: reviewed, normal General Appearance: normal inspection, well appearing, no apparent distress, alert, GCS 15, non-toxic Head: normocephalic, atraumatic Eyes: bilateral eye EOMI, bilateral eye PERRL ENT: normal ENT inspection, normal pharynx, no angioedema Neck: normal inspection, full range of motion, supple, no bony tend Respiratory: normal inspection, lungs clear, normal breath sounds, no respiratory distress, no retraction, no wheezing Cardiovascular #1: regular rate, rhythm, no edema Gastrointestinal: normal inspection, normal bowel sounds, non tender, soft, no guarding, no hernia Genitourinary: no CVA tenderness Musculoskeletal: normal inspection, back normal, normal range of motion, Chantel' s Sign negative Neurologic: normal inspection, alert, responsive, 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 I attest that this information is true, accurate and complete to the best of my knowledge. I understand that any falsification, omission, or concealment of material fact may subject me to administrative, civil, or criminal liability. This patient warrants hospital admission for extreme of age and has a condition that cannot be treated as outpatient. Diagnostic Impression: Primary Impression: Coffee ground emesis ER Course Alleged coffee ground emesis at [facility] here. Afebrile No active vomiting Was given IV zofran, protonix H&H stable. No other lab abnormalities Admitted to Dr Uriarte for tele admit at 1103am EKG Diagnostic Results Rate: normal Rhythm: NSR ST Segments: no acute changes ASA given to the pt in ED: No Rhythm Strip Diag. Results EP Interpretation: yes - 99 Rate: 99 Rhythm: NSR, no PVC's, no ectopy Chest X-Ray Diagnostic Results Chest X-Ray Diagnostic Results : Chest X-Ray Ordered: Yes # of Views/Limited/Complete: 1 View Indication: Other - coffee ground emesis Impression: Other - Right sided hiatal hernia Interpreting ER Provider: Dr Brett Perez MD Last Vital Signs Date Time Temp Pulse Resp B/P Pulse Ox O2 Delivery O2 Flow Rate FiO2 11/02/16 09:51 97.9 96 16 129/79 98 Room Air Status: improved Disposition: ADMITTED INPATIENT Condition: Serious Referrals: MARCELA URIARTE (PCP) BRETT PEREZ M.D. Nov 02, 2016 11:06
--- NOTE | 2016-11-02 11:09 | Diagnostic Imaging Report ---
Indication: Dyspnea Comparison: None A single view chest radiograph was obtained. Findings: The right hemidiaphragm is markedly elevated. There is interposition of the bowel between the diaphragm and liver. The stomach may also be on the right side. Heart is normal in size. Bones are osteopenic. Impression: Marked elevation of the right hemidiaphragm
[2016-11-02 11:49] LABS: APPEARANCE,URINE CLEAR; KETONES,URINE NEGATIVE (NEGATIVE); LEUKOCYTE ESTERASE ,URINE 1+ (NEGATIVE); NITRITE,URINE NEGATIVE (NEGATIVE); PH,URINE 7 (4.5-8.0); PROTEIN,URINE 1+ (NEGATIVE); UROBILINOGEN,URINE 4 MG/DL (0.0-1.0)
[2016-11-02 12:00] LABS: BACTERIA,URINE OCCASIONAL /HPF; ICTOTEST NEG; RBC,URINE 60-80 /HPF (0 - 0); SQUAMOUS EPITHELIAL CELL,UR OCCASIONAL /LPF (NONE/OCC); WBC,URINE 0-2 /HPF (0 - 0)
[2016-11-02] MEDS ORDERED: Mylanta II UD 30ml ORAL PRN (12:30)
[2016-11-02] MEDS ORDERED: Morphine Sulfate 2mg/ml Inj IVP PRN (12:30)
[2016-11-02] MEDS ORDERED: Nitroglycerin Subl 0.4mg tab (Bottle Of 25) SL PRN (12:30)
[2016-11-02 12:34] VITALS: BP 137/95
[2016-11-02] MEDS: Sucralfate 1gm tab ORAL SCH ×3 (13:00→22:36)
--- NOTE | 2016-11-02 13:56 | GI Initial Consult Note ---
Donna Melgar N.P. 11/02/16 1356: History of Present Illness General Date patient seen: Nov 02, 2016 Time patient seen: 13:45 Reason for Hospitalization: Gastrointestinal Illness Referring physician: MARCELA PENALOZA Reason for Consultation: COFFEE GROUNDS Present Illness HPI 71YOM non-verbal with alleged 200cc coffee ground emesis at SNF this morning. patient not contributing to HPI Known aphasic, schizophrenia PMHX: HTN, dementia, schizophrenia Had endoscopy 10/21/16: severe esophagitis, hiatal hernia, diffuse gastritis, duodenitis No active vomiting in ED GI Consult. HPI as noted above. GI consulted for reports of coffee grounds. Pt seen on floor, awake alert NAD with no active s/sx of N/V/D. Pt had recent EGD here at [facility] noted with severe esophagitis. Presents today with normal Hgb levels. Home Meds Active Scripts Sucralfate* (CARAFATE*) 1 Gm Tablet, 1 GM ORAL FOUR TIMES A DAY, #120 TAB Prov:Mane (Elly)Kacy NP 10/26/16 Pantoprazole* (PROTONIX*) 40 Mg Tablet., 40 MG ORAL DAILY, #30 TAB Prov:Kacy iGlliam NP (Vanchtein) 10/26/16 Reported Medications Omeprazole (OMEPRAZOLE) 40 Mg Capsule., 40 MG ORAL DAILY for 42 Days, CAP 11/04/16 Omeprazole (OMEPRAZOLE) 40 Mg Capsule., 40 MG ORAL BID for 14 Days, CAP 11/04/16 Clarithromycin* (CLARITHROMYCIN*) 500 Mg Tablet, 500 MG PO BID for 14 Days, TAB 11/04/16 Amoxicillin* (AMOXICILLIN*) 250 Mg/5 Ml Susp.recon, 1000 MG ORAL BID for 14 Days , #150 ML 11/04/16 Temazepam* (TEMAZEPAM*) 30 Mg Capsule, 15 MG ORAL BEDTIME Y for Insomnia, CAP 11/04/16 Polyethylene Glycol 3350* (MIRALAX*) 17 Gm Powd.pack, 17 GM ORAL DAILY Y for Constipation, PACKET 11/04/16 Ondansetron* (ZOFRAN*) 4 Mg Tablet, 4 MG ORAL Q6H Y for Nausea & Vomiting, TAB 11/04/16 Esomeprazole Magnesium (NEXIUM) 40 Mg Capsule., 40 MG ORAL BID, CAP 11/04/16 Nitroglycerin (NITROGLYCERIN) 0.4 Mg Tab.subl, 0.4 MG SL Q5M x3 DOSES PRN for Chest Pain, TAB 11/04/16 Diphenhydramine Hcl* (DIPHENHYDRAMINE HCL*) 25 Mg Capsule, 25 MG ORAL Q6H Y for Itching, #30 CAP 0 Refills 11/04/16 Al Hydroxide/mg Hydroxide (Mag-Al Plus Suspension) 30 Ml Oral.susp, 30 ML PO Q6HR Y for Constipation, ML 11/04/16 Acetaminophen* (ACETAMINOPHEN 325MG TABLET*) 325 Mg Tablet, 650 MG ORAL Q4H Y for Mild Pain/Temp > 100.5, TAB 11/04/16 Esomeprazole Sodium (NEXIUM I.V.) 40 Mg Vial, 40 MG IV DAILY, VIAL 11/04/16 Sucralfate* (CARAFATE*) 1 Gm Tablet, 1 GM ORAL FOUR TIMES A DAY, TAB 11/04/16 Sucralfate* (CARAFATE*) 1 Gm Tablet, 1 GM ORAL FOUR TIMES A DAY, TAB 11/04/16 Sucralfate* (CARAFATE*) 1 Gm Tablet, 1 GM ORAL FOUR TIMES A DAY, TAB 11/04/16 Ceftriaxone Sod (Ceftriaxone 1 gm-D5w Bag) 1 Gm/50 Ml Piggyback, 1 GM IVPB Every 24 hours for 3 Days, BAG 10/23/16 Ascorbic Acid* (VITAMIN C*) 500 Mg Tablet, 500 MG ORAL DAILY, #30 TAB 0 Refills 10/20/16 Enalapril Maleate* (VASOTEC*) 5 Mg Tablet, 5 MG ORAL EVERY 12 HOURS, TAB 10/20/16 Memantine Hcl (NAMENDA XR) 28 Mg Cap.spr.24, 28 MG PO DAILY, CAP 10/20/16 Multivitamin With Minerals (MULTIVITAMINS WITH MINERALS*) 1 Each Tablet, 1 TAB ORAL DAILY, TAB 10/20/16 Docusate Sodium* (DOCUSATE SODIUM*) 100 Mg Capsule, 100 MG ORAL DAILY, CAP 10/20/16 Aspirin* (ASPIR 81*) 81 Mg Tablet.dr, 81 MG ORAL DAILY, TAB 10/20/16 Acetaminophen (Tylenol) 325 Mg Tablet, 500 MG ORAL Q4HR Y for Prn Pain/Headache/ Temp > 101, #30 TAB 0 Refills 10/20/16 Med list reviewed/reconciled: Yes Allergies: Coded Allergies: No Known Allergies (Unverified , 10/20/16) Patient History Limited by: medical condition History Provided By: Medical Record PMH Narrative Hx Cardiac Problems: No Hx Hypertension: Yes Hx Pacemaker: No Hx Asthma: No Hx COPD: Yes Hx Diabetes: No Hx Cancer: No Hx Gastrointestinal Problems: Yes - g.i bleed,gerd,uti Hx Dialysis: No History Of Psychiatric Problem: No Hx Cerebrovascular Accident: No Hx Seizures: No Review of Systems All Other Systems: limited Physical Exam Vital Signs Date Time Temp Pulse Resp B/P Pulse Ox O2 Delivery O2 Flow Rate FiO2 11/02/16 09:51 97.9 96 16 129/79 98 Room Air Sp02 EP Interpretation: reviewed Labs Laboratory Tests Test 11/02/16 10:00 11/02/16 11:40 White Blood Count 12.2 K/UL (4.8-10.8) H Red Blood Count 6.14 M/UL (4.70-6.10) H Hemoglobin 18.0 G/DL (14.2-18.0) Hematocrit 58.6 % (42.0-52.0) H Mean Corpuscular Volume 95 FL (80-99) Mean Corpuscular Hemoglobin 29.3 PG (27.0-31.0) Mean Corpuscular Hemoglobin Concent 30.7 G/DL (32.0-36.0) L Red Cell Distribution Width 12.6 % (11.6-14.8) Platelet Count 312 K/UL (150-450) Mean Platelet Volume 6.3 FL (6.5-10.1) L Neutrophils (%) (Auto) 71.0 % (45.0-75.0) Lymphocytes (%) (Auto) 19.1 % (20.0-45.0) L Monocytes (%) (Auto) 6.8 % (1.0-10.0) Eosinophils (%) (Auto) 2.3 % (0.0-3.0) Basophils (%) (Auto) 0.8 % (0.0-2.0) Prothrombin Time 12.1 SEC (9.30-11.50) H Prothromb Time International Ratio 1.2 (0.9-1.1) H Activated Partial Thromboplast Time 34 SEC (23-33) H Sodium Level 139 mEQ/L (135-145) Potassium Level 4.3 mEQ/L (3.4-4.9) Chloride Level 100 mEQ/L (98-107) Carbon Dioxide Level 25 mEQ/L (20-30) Anion Gap 14 (5-15) Blood Urea Nitrogen 12 mg/dL (7-23) Creatinine 0.9 mg/dL (0.7-1.2) Estimat Glomerular Filtration Rate > 60 mL/min (>60) Glucose Level 116 mg/dL (74-106) H Calcium Level 9.8 mg/dL (8.6-10.2) Total Bilirubin 0.6 mg/dL (0.0-1.2) Aspartate Amino Transf (AST/SGOT) 35 U/L (5-40) Alanine Aminotransferase (ALT/SGPT) 36 U/L (3-41) Alkaline Phosphatase 126 U/L (40-129) Total Protein 7.9 g/dL (6.6-8.7) Albumin 4.2 g/dL (3.5-5.2) Globulin 3.7 g/dL Albumin/Globulin Ratio 1.1 (1.0-2.7) Urine Color Mariann Urine Appearance Clear Urine pH 7 (4.5-8.0) Urine Specific [place] 1.005 (1.005-1.035) Urine Protein 1+ (NEGATIVE) H Urine Glucose (UA) Negative (NEGATIVE) Urine Ketones Negative (NEGATIVE) Urine Occult Blood 5+ (NEGATIVE) H Urine Nitrite Negative (NEGATIVE) Urine Bilirubin Negative (NEGATIVE) Urine Ictotest Neg Urine Urobilinogen 4 MG/DL (0.0-1.0) H Urine Leukocyte Esterase 1+ (NEGATIVE) H Urine RBC 60-80 /HPF (0 - 0) H Urine WBC 0-2 /HPF (0 - 0) Urine Squamous Epithelial Cells Occasional /LPF Urine Bacteria Occasional /HPF (NONE) General Appearance: well appearing, no apparent distress, alert Head: normocephalic EENT: normal ENT inspection Neck: supple Respiratory: normal breath sounds, no respiratory distress Cardiovascular: normal rate Gastrointestinal: normal inspection, non tender, soft Rectal: deferred Genitourinary: no CVA tenderness Musculoskeletal: back normal Neurologic: alert Skin: normal color, no rash, warm/dry Current Medications Current Medications Medications (Trade) Dose Ordered Sig/Ant Route PRN Reason Start Time Stop Time Status Last Admin Dose Admin Acetaminophen (Tylenol) 650 mg Q4H PRN ORAL T>100.5 11/02/16 12:30 12/02/16 12:29 Al Hydroxide/Mg Hydroxide (Mylanta II) 30 ml Q6H PRN ORAL dyspepsia 11/02/16 12:30 12/02/16 12:29 Dextrose STAT PRN IV Hypoglycemia 11/02/16 12:30 12/02/16 12:29 Dextrose/Sodium Chloride (D5ns) 1,000 ml @ 100 mls/hr Q10H IV 11/02/16 13:00 12/02/16 12:59 Diphenhydramine HCl (Benadryl) 25 mg Q6H PRN ORAL Itching/Pruritis 11/02/16 12:30 12/02/16 12:29 Esomeprazole Sodium (Nexium I.v.) 40 mg Q12HR IVP 11/03/16 09:00 12/03/16 08:59 Morphine Sulfate (Morphine Sulfate) 2 mg Q4H PRN IVP Severe Pain (Pain Scale 7-10) 11/02/16 12:30 11/09/16 12:29 Nitroglycerin (Ntg) 0.4 mg Q5M X 3 DOSES PRN SL Prn Chest Pain 11/02/16 12:30 12/02/16 12:29 Ondansetron HCl (Zofran) 4 mg Q6H PRN IVP Nausea & Vomiting 11/02/16 12:30 12/02/16 12:29 Phytonadione 10 mg/Dextrose 56 ml @ 110 mls/hr ONCE ONCE IVPB 11/02/16 14:00 11/02/16 14:30 Polyethylene Glycol (Miralax) 17 gm HSPRN PRN ORAL Constipation 11/02/16 21:00 12/02/16 20:59 Sucralfate (Carafate) 1 gm FOUR TIMES A DAY ORAL 11/02/16 13:00 12/02/16 12:59 Temazepam (Restoril) 15 mg HSPRN PRN ORAL Insomnia 11/02/16 21:00 11/09/16 20:59 GI: Plan Problems: (1) Esophagitis (2) Coffee ground emesis (3) Sepsis (4) Alzheimer disease Plan s/p EGD SUMMARY OF FINDINGS: 1. Distal esophagitis. 2. Hiatal hernia. 3. Gastritis, status post biopsy. 4. Duodenitis. RECOMMENDATIONS: Follow up biopsies and treat accordingly >> H. Pylori positive >> outpatient tx monitor H&H, prn transfusions ppi + carafate ST evaluation aspiration precautions fu labs Discussed with Dr. Garner. Thank you for referring this patient, we will follow. TIMMY GARNER 11/05/16 1203: History of Present Illness General Reason for Hospitalization: Gastrointestinal Illness Present Illness Home Meds Active Scripts Sucralfate* (CARAFATE*) 1 Gm Tablet, 1 GM ORAL FOUR TIMES A DAY, #120 TAB Prov:Mane ([facility])Kacy COMPONENT ENGINEER 10/26/16 Pantoprazole* (PROTONIX*) 40 Mg Tablet., 40 MG ORAL DAILY, #30 TAB Prov:Mane ([facility])Kacy COMPONENT ENGINEER 10/26/16 Reported Medications Omeprazole (OMEPRAZOLE) 40 Mg Capsule.dr, 40 MG ORAL DAILY for 42 Days, CAP 11/04/16 Omeprazole (OMEPRAZOLE) 40 Mg Capsule.dr, 40 MG ORAL BID for 14 Days, CAP 11/04/16 Clarithromycin* (CLARITHROMYCIN*) 500 Mg Tablet, 500 MG PO BID for 14 Days, TAB 11/04/16 Amoxicillin* (AMOXICILLIN*) 250 Mg/5 Ml Susp.recon, 1000 MG ORAL BID for 14 Days , #150 ML 11/04/16 Temazepam* (TEMAZEPAM*) 30 Mg Capsule, 15 MG ORAL BEDTIME Y for Insomnia, CAP 11/04/16 Polyethylene Glycol 3350* (MIRALAX*) 17 Gm Powd.pack, 17 GM ORAL DAILY Y for Constipation, PACKET 11/04/16 Ondansetron* (ZOFRAN*) 4 Mg Tablet, 4 MG ORAL Q6H Y for Nausea & Vomiting, TAB 11/04/16 Esomeprazole Magnesium (NEXIUM) 40 Mg Capsule.dr, 40 MG ORAL BID, CAP 11/04/16 Nitroglycerin (NITROGLYCERIN) 0.4 Mg Tab.subl, 0.4 MG SL Q5M x3 DOSES PRN for Chest Pain, TAB 11/04/16 Diphenhydramine Hcl* (DIPHENHYDRAMINE HCL*) 25 Mg Capsule, 25 MG ORAL Q6H Y for Itching, #30 CAP 0 Refills 11/04/16 Al Hydroxide/mg Hydroxide (Mag-Al Plus Suspension) 30 Ml Oral.susp, 30 ML PO Q6HR Y for Constipation, ML 11/04/16 Acetaminophen* (ACETAMINOPHEN 325MG TABLET*) 325 Mg Tablet, 650 MG ORAL Q4H Y for Mild Pain/Temp > 100.5, TAB 11/04/16 Esomeprazole Sodium (NEXIUM I.V.) 40 Mg Vial, 40 MG IV DAILY, VIAL 11/04/16 Sucralfate* (CARAFATE*) 1 Gm Tablet, 1 GM ORAL FOUR TIMES A DAY, TAB 11/04/16 Sucralfate* (CARAFATE*) 1 Gm Tablet, 1 GM ORAL FOUR TIMES A DAY, TAB 11/04/16 Sucralfate* (CARAFATE*) 1 Gm Tablet, 1 GM ORAL FOUR TIMES A DAY, TAB 11/04/16 Ceftriaxone Sod (Ceftriaxone 1 gm-D5w Bag) 1 Gm/50 Ml Piggyback, 1 GM IVPB Every 24 hours for 3 Days, BAG 10/23/16 Ascorbic Acid* (VITAMIN C*) 500 Mg Tablet, 500 MG ORAL DAILY, #30 TAB 0 Refills 10/20/16 Enalapril Maleate* (VASOTEC*) 5 Mg Tablet, 5 MG ORAL EVERY 12 HOURS, TAB 10/20/16 Memantine Hcl (NAMENDA XR) 28 Mg Cap.spr.24, 28 MG PO DAILY, CAP 10/20/16 Multivitamin With Minerals (MULTIVITAMINS WITH MINERALS*) 1 Each Tablet, 1 TAB ORAL DAILY, TAB 10/20/16 Docusate Sodium* (DOCUSATE SODIUM*) 100 Mg Capsule, 100 MG ORAL DAILY, CAP 10/20/16 Aspirin* (ASPIR 81*) 81 Mg Tablet.dr, 81 MG ORAL DAILY, TAB 10/20/16 Acetaminophen (Tylenol) 325 Mg Tablet, 500 MG ORAL Q4HR Y for Prn Pain/Headache/ Temp > 101, #30 TAB 0 Refills 10/20/16 Allergies: Coded Allergies: No Known Allergies (Unverified , 10/20/16) GI: Plan Plan The patient was seen and examined at bedside and all new and available data was reviewed in the patients chart. I agree with the above findings, impression and plan. (Patient seen earlier today. Signature stamp does not reflect patient encounter time.). -Indiana Braga MDh Obey Jj Nov 02, 2016 13:56 TIMMY GARNER Nov 05, 2016 12:03
[2016-11-02] MEDS: D5NS 1,000 ML IV SCH ×2 (13:59→22:43)
[2016-11-02] MEDS ORDERED: Phytonadione 10 MG in D5W 55 ML IVPB ONE (14:00)
[2016-11-02 14:11] VITALS: BP 107/70
--- NOTE | 2016-11-02 14:49 | History and Physical ---
History of Present Illness General Date patient seen: Nov 02, 2016 Reason for Hospitalization: Gastrointestinal bleeding Present Illness HPI 71 year old male non-verbal HTN, with PMHxo of dementia, schizophreniawith recent hospitalization with upper GI bleeding, diagnosed to have esophagitis, brought in from senior care with alleged 200cc coffee ground emesis at [facility] this morning. Pt is admitted to telemetry for further evaluation. Allergies: Coded Allergies: No Known Allergies (Unverified , 10/20/16) Medication History Scheduled Ascorbic Acid* (Vitamin C*), 500 MG ORAL DAILY, (Reported) Aspirin* (Aspir 81*), 81 MG ORAL DAILY, (Reported) Ceftriaxone Sod (Ceftriaxone 1 gm-D5w Bag), 1 GM IVPB Every 24 hours, (Reported) Docusate Sodium* (Docusate Sodium*), 100 MG ORAL DAILY, (Reported) Enalapril Maleate* (Vasotec*), 5 MG ORAL EVERY 12 HOURS, (Reported) Memantine Hcl (Namenda Xr), 28 MG PO DAILY, (Reported) Multivitamin With Minerals (Multivitamins With Minerals*), 1 TAB ORAL DAILY, ( Reported) Pantoprazole* (Protonix*), 40 MG ORAL DAILY Sucralfate* (Carafate*), 1 GM ORAL FOUR TIMES A DAY Scheduled PRN Acetaminophen (Tylenol), 500 MG ORAL Q4HR PRN for Prn Pain/Headache/Temp > 101, (Reported) Patient History Healthcare decision maker Resuscitation status Advanced Directive on File Past Medical/Surgical History Past Medical/Surgical History: (1) Alzheimer disease (2) Esophagitis (3) Limited mobility (4) COPD (chronic obstructive pulmonary disease) Review of Systems All Other Systems: negative except mentioned in HPI Physical Exam General Appearance: WD/WN Lines, tubes and drains: peripheral, central line HEENT: normocephalic, atraumatic Neck: non-tender, normal alignment Respiratory/Chest: chest wall non-tender, lungs clear Breasts: no masses Cardiovascular/Chest: normal peripheral pulses, normal rate, regular rhythm Abdomen: normal bowel sounds, non tender Genitourinary/Rectal: normal genital exam, normal rectal exam, normal prostate exam Extremities: normal range of motion Skin Exam: normal pigmentation Last 24 Hour Vital Signs Date Time Temp Pulse Resp B/P Pulse Ox O2 Delivery O2 Flow Rate FiO2 11/02/16 14:11 97.4 70 20 107/70 94 Room Air 11/02/16 12:34 97.9 75 18 137/95 99 Room Air 11/02/16 12:34 75 18 137/95 99 Room Air 11/02/16 10:00 97.9 76 24 121/105 98 Room Air 11/02/16 09:51 97.9 96 16 129/79 98 Room Air Laboratory Tests Test 11/02/16 10:00 11/02/16 11:40 White Blood Count 12.2 K/UL (4.8-10.8) H Red Blood Count 6.14 M/UL (4.70-6.10) H Hemoglobin 18.0 G/DL (14.2-18.0) Hematocrit 58.6 % (42.0-52.0) H Mean Corpuscular Volume 95 FL (80-99) Mean Corpuscular Hemoglobin 29.3 PG (27.0-31.0) Mean Corpuscular Hemoglobin Concent 30.7 G/DL (32.0-36.0) L Red Cell Distribution Width 12.6 % (11.6-14.8) Platelet Count 312 K/UL (150-450) Mean Platelet Volume 6.3 FL (6.5-10.1) L Neutrophils (%) (Auto) 71.0 % (45.0-75.0) Lymphocytes (%) (Auto) 19.1 % (20.0-45.0) L Monocytes (%) (Auto) 6.8 % (1.0-10.0) Eosinophils (%) (Auto) 2.3 % (0.0-3.0) Basophils (%) (Auto) 0.8 % (0.0-2.0) Prothrombin Time 12.1 SEC (9.30-11.50) H Prothromb Time International Ratio 1.2 (0.9-1.1) H Activated Partial Thromboplast Time 34 SEC (23-33) H Sodium Level 139 mEQ/L (135-145) Potassium Level 4.3 mEQ/L (3.4-4.9) Chloride Level 100 mEQ/L (98-107) Carbon Dioxide Level 25 mEQ/L (20-30) Anion Gap 14 (5-15) Blood Urea Nitrogen 12 mg/dL (7-23) Creatinine 0.9 mg/dL (0.7-1.2) Estimat Glomerular Filtration Rate > 60 mL/min (>60) Glucose Level 116 mg/dL (74-106) H Calcium Level 9.8 mg/dL (8.6-10.2) Total Bilirubin 0.6 mg/dL (0.0-1.2) Aspartate Amino Transf (AST/SGOT) 35 U/L (5-40) Alanine Aminotransferase (ALT/SGPT) 36 U/L (3-41) Alkaline Phosphatase 126 U/L (40-129) Total Protein 7.9 g/dL (6.6-8.7) Albumin 4.2 g/dL (3.5-5.2) Globulin 3.7 g/dL Albumin/Globulin Ratio 1.1 (1.0-2.7) Urine Color Mariann Urine Appearance Clear Urine pH 7 (4.5-8.0) Urine Specific [place] 1.005 (1.005-1.035) Urine Protein 1+ (NEGATIVE) H Urine Glucose (UA) Negative (NEGATIVE) Urine Ketones Negative (NEGATIVE) Urine Occult Blood 5+ (NEGATIVE) H Urine Nitrite Negative (NEGATIVE) Urine Bilirubin Negative (NEGATIVE) Urine Ictotest Neg Urine Urobilinogen 4 MG/DL (0.0-1.0) H Urine Leukocyte Esterase 1+ (NEGATIVE) H Urine RBC 60-80 /HPF (0 - 0) H Urine WBC 0-2 /HPF (0 - 0) Urine Squamous Epithelial Cells Occasional /LPF Urine Bacteria Occasional /HPF (NONE) Height (Feet): 6 Weight (Pounds): 180 Medications Current Medications Medications (Trade) Dose Ordered Sig/Ant Route PRN Reason Start Time Stop Time Status Last Admin Dose Admin Acetaminophen (Tylenol) 650 mg Q4H PRN ORAL T>100.5 11/02/16 12:30 12/02/16 12:29 Al Hydroxide/Mg Hydroxide (Mylanta II) 30 ml Q6H PRN ORAL dyspepsia 11/02/16 12:30 12/02/16 12:29 Dextrose STAT PRN IV Hypoglycemia 11/02/16 12:30 12/02/16 12:29 Dextrose/Sodium Chloride (D5ns) 1,000 ml @ 100 mls/hr Q10H IV 11/02/16 13:00 12/02/16 12:59 11/02/16 13:59 Diphenhydramine HCl (Benadryl) 25 mg Q6H PRN ORAL Itching/Pruritis 11/02/16 12:30 12/02/16 12:29 Esomeprazole Sodium (Nexium I.v.) 40 mg Q12HR IVP 11/03/16 09:00 12/03/16 08:59 Morphine Sulfate (Morphine Sulfate) 2 mg Q4H PRN IVP Severe Pain (Pain Scale 7-10) 11/02/16 12:30 11/09/16 12:29 Nitroglycerin (Ntg) 0.4 mg Q5M X 3 DOSES PRN SL Prn Chest Pain 11/02/16 12:30 12/02/16 12:29 Ondansetron HCl (Zofran) 4 mg Q6H PRN IVP Nausea & Vomiting 11/02/16 12:30 12/02/16 12:29 Polyethylene Glycol (Miralax) 17 gm HSPRN PRN ORAL Constipation 11/02/16 21:00 12/02/16 20:59 Sucralfate (Carafate) 1 gm FOUR TIMES A DAY ORAL 11/02/16 13:00 12/02/16 12:59 11/02/16 13:00 Temazepam (Restoril) 15 mg HSPRN PRN ORAL Insomnia 11/02/16 21:00 11/09/16 20:59 Assessment/Plan Problem List: (1) Coffee ground emesis ICD Codes: K92.0 - Hematemesis SNOMED: 629949107, 15077995 (2) Esophagitis ICD Codes: K20.9 - Esophagitis, unspecified SNOMED: 39743371 (3) Alzheimer disease ICD Codes: G30.9 - Alzheimer's disease, unspecified SNOMED: 32412412 (4) COPD (chronic obstructive pulmonary disease) ICD Codes: J44.9 - Chronic obstructive pulmonary disease, unspecified SNOMED: 66774473 (5) Limited mobility ICD Codes: Z74.09 - Other reduced mobility SNOMED: 1455274 (6) Psychosis ICD Codes: F29 - Unspecified psychosis not due to a substance or known physiological condition SNOMED: 40583943 Assessment/Plan NPO check h/h h2 blockers GI evaluation iv fluids check electrolytes. MARCELA SCHULZ Nov 02, 2016 14:49
[2016-11-02 20:00] VITALS: BP 139/73
[2016-11-02] MEDS ORDERED: Miralax 17gm pkt ORAL PRN (21:00)
[2016-11-03] VITALS (7 sets, daily range): BP systolic 105–141; BP diastolic 48–90
[2016-11-03 07:40] LABS: EOSINOPHILS % (AUTO) 6.5 % (0.0-3.0); LYMPHOCYTES % (AUTO) 33.4 % (20.0-45.0); MEAN CORPUSCULAR HEMOGLOBIN 30.6 PG (27.0-31.0); MEAN CORPUSCULAR HGB CONC 31.7 G/DL (32.0-36.0); MEAN CORPUSCULAR VOLUME 97 FL (80-99); MEAN PLATELET VOLUME 6.2 FL (6.5-10.1); MONOCYTES % (AUTO) 8.3 % (1.0-10.0); NEUTROPHILS % (AUTO) 50.9 % (45.0-75.0); PLATELET COUNT 247 K/UL (150-450); RED BLOOD COUNT 5.23 M/UL (4.70-6.10); RED CELL DISTRIBUTION WIDTH 12.6 % (11.6-14.8); WHITE BLOOD COUNT 8.9 K/UL (4.8-10.8)
[2016-11-03 07:55] LABS: ALANINE AMINOTRANSFERASE 27 U/L (3-41); ALBUMIN/GLOBULIN RATIO 0.8 (1.0-2.7); AMYLASE 125 U/L (10-110); ANION GAP 9 (5-15); ASPARTATE AMINO TRANSFERASE 33 U/L (5-40); CALCIUM 9.3 mg/dL (8.6-10.2); CARBON DIOXIDE 26 mEQ/L (20-30); CHLORIDE 107 mEQ/L (98-107); CREATININE 0.8 mg/dL (0.7-1.2); GLOMERULAR FILTRATION RATE > 60 mL/min (>60); HEMOLYSIS 63; LIPASE 62 U/L (< 60); POTASSIUM 4.4 mEQ/L (3.4-4.9); SODIUM 142 mEQ/L (135-145)
[2016-11-03 08:02] LABS: INR 1.1 (0.9-1.1); PROTHROMBIN TIME 11.4 SEC (9.30-11.50)
[2016-11-03] MEDS: Sucralfate 1gm tab ORAL SCH ×4 (08:20→20:55)
[2016-11-03] MEDS: D5NS 1,000 ML IV SCH ×2 (08:29→15:34)
[2016-11-03] MEDS ORDERED: Esomeprazole sodium 40mg vial IVP SCH (09:00)
[2016-11-03] MEDS ORDERED: Tubing IV Secondary IV ONE (10:40)
[2016-11-03] MEDS ORDERED: D5NS 1000ml IV ONE (10:40)
--- NOTE | 2016-11-03 11:40 | Pulmonology Progress Note ---
Assessment/Plan Problems: (1) Coffee ground emesis (2) Esophagitis (3) Alzheimer disease (4) COPD (chronic obstructive pulmonary disease) (5) Limited mobility (6) Psychosis Assessment/Plan GI evaluation appreciated check h/h prbc prn dc to detention by tomorrow if h/h stable. treatment for H/ pylori Subjective ROS Limited/Unobtainable: No Constitutional: Reports: no symptoms Allergies: Coded Allergies: No Known Allergies (Unverified , 10/20/16) Objective Last 24 Hour Vital Signs Date Time Temp Pulse Resp B/P Pulse Ox O2 Delivery O2 Flow Rate FiO2 11/03/16 08:00 59 11/03/16 08:00 97.8 61 20 122/66 96 Room Air 11/03/16 04:00 61 11/03/16 04:00 97.9 53 21 120/71 97 Room Air 11/03/16 00:00 74 11/03/16 00:00 97.9 71 20 110/66 96 Room Air 11/02/16 21:00 76 11/02/16 20:00 97.0 70 21 139/73 82 Room Air 11/02/16 16:00 85 11/02/16 14:11 97.4 70 20 107/70 94 Room Air 11/02/16 12:34 97.9 75 18 137/95 99 Room Air 11/02/16 12:34 75 18 137/95 99 Room Air 11/02/16 12:00 78 Intake and Output 11/02/16 11/03/16 19:00 07:00 Intake Total 1355 ml 200 ml Output Total 200 ml Balance 1155 ml 200 ml Intake Oral 200 ml IV Total 1355 ml Output Urine Total 200 ml # Voids 2 # Bowel Movements 1 1 General Appearance: cachetic HEENT: normocephalic, atraumatic Respiratory/Chest: chest wall non-tender, normal breath sounds Cardiovascular: normal peripheral pulses, normal rate Abdomen: normal bowel sounds, no organomegaly Genitourinary: normal external genitalia Extremities: no clubbing Skin: no rash, no lesions Laboratory Tests 11/02/16 11:40: Urine Color Mariann, Urine Appearance Clear, Urine pH 7, Urine Specific [place] 1.005, Urine Protein 1+H, Urine Glucose (UA) Negative, Urine Ketones Negative, Urine Occult Blood 5+H, Urine Nitrite Negative, Urine Bilirubin Negative, Urine Ictotest Neg, Urine Urobilinogen 4H, Urine Leukocyte Esterase 1+H, Urine RBC 60- 80H, Urine WBC 0-2, Urine Squamous Epithelial Cells Occasional, Urine Bacteria Occasional 11/03/16 06:20: White Blood Count 8.9, Red Blood Count 5.23, Hemoglobin 16.0, Hematocrit 50.5, Mean Corpuscular Volume 97, Mean Corpuscular Hemoglobin 30.6, Mean Corpuscular Hemoglobin Concent 31.7L, Red Cell Distribution Width 12.6, Platelet Count 247, Mean Platelet Volume 6.2L, Neutrophils (%) (Auto) 50.9, Lymphocytes (%) (Auto) 33.4, Monocytes (%) (Auto) 8.3, Eosinophils (%) (Auto) 6.5H, Basophils (%) (Auto ) 1.0, Prothrombin Time 11.4, Prothromb Time International Ratio 1.1, Activated Partial Thromboplast Time 29, Sodium Level 142, Potassium Level 4.4, Chloride Level 107, Carbon Dioxide Level 26, Anion Gap 9, Blood Urea Nitrogen 8, Creatinine 0.8, Estimat Glomerular Filtration Rate > 60, Glucose Level 115H, Calcium Level 9.3, Total Bilirubin 0.8, Aspartate Amino Transf (AST/SGOT) 33, Alanine Aminotransferase (ALT/SGPT) 27, Alkaline Phosphatase 116, Total Protein 7.0, Albumin 3.3L, Globulin 3.7, Albumin/Globulin Ratio 0.8L, Amylase Level 125H , Lipase 62H Current Medications Medications (Trade) Dose Ordered Sig/Ant Route PRN Reason Start Time Stop Time Status Last Admin Dose Admin Acetaminophen (Tylenol) 650 mg Q4H PRN ORAL T>100.5 11/02/16 12:30 12/02/16 12:29 Al Hydroxide/Mg Hydroxide (Mylanta II) 30 ml Q6H PRN ORAL dyspepsia 11/02/16 12:30 12/02/16 12:29 Dextrose STAT PRN IV Hypoglycemia 11/02/16 12:30 12/02/16 12:29 Dextrose/Sodium Chloride (D5ns) 1,000 ml @ 100 mls/hr Q10H IV 11/02/16 13:00 12/02/16 12:59 11/03/16 08:29 Diphenhydramine HCl (Benadryl) 25 mg Q6H PRN ORAL Itching/Pruritis 11/02/16 12:30 12/02/16 12:29 Esomeprazole Sodium (Nexium I.v.) 40 mg Q12HR IVP 11/03/16 09:00 12/03/16 08:59 11/03/16 08:28 Morphine Sulfate (Morphine Sulfate) 2 mg Q4H PRN IVP Severe Pain (Pain Scale 7-10) 11/02/16 12:30 11/09/16 12:29 Nitroglycerin (Ntg) 0.4 mg Q5M X 3 DOSES PRN SL Prn Chest Pain 11/02/16 12:30 12/02/16 12:29 Ondansetron HCl (Zofran) 4 mg Q6H PRN IVP Nausea & Vomiting 11/02/16 12:30 12/02/16 12:29 Polyethylene Glycol (Miralax) 17 gm HSPRN PRN ORAL Constipation 11/02/16 21:00 12/02/16 20:59 Sucralfate (Carafate) 1 gm FOUR TIMES A DAY ORAL 11/02/16 13:00 12/02/16 12:59 11/03/16 08:20 Temazepam (Restoril) 15 mg HSPRN PRN ORAL Insomnia 11/02/16 21:00 11/09/16 20:59 MARCELA SCHULZ Nov 03, 2016 11:40
--- NOTE | 2016-11-03 13:23 | GI Progress Note ---
Assessment/Plan Problems: (1) Limited mobility ICD Codes: Z74.09 - Other reduced mobility SNOMED: 4590535 (2) Alzheimer disease ICD Codes: G30.9 - Alzheimer's disease, unspecified SNOMED: 99793306 (3) Coffee ground emesis ICD Codes: K92.0 - Hematemesis SNOMED: 383181443, 89166112 (4) Esophagitis ICD Codes: K20.9 - Esophagitis, unspecified SNOMED: 72926966 Status: stable Status Narrative Discussed with Dr. Kaur. Assessment/Plan s/p EGD SUMMARY OF FINDINGS: 1. Distal esophagitis. 2. Hiatal hernia. 3. Gastritis, status post biopsy. 4. Duodenitis. RECOMMENDATIONS: Follow up biopsies and treat accordingly >> H. Pylori positive >> Rx in patient chart, start tx as outpatient (8 week course and will require retest for HP after) monitor H&H, prn transfusions ppi + Carafate ST evaluation aspiration precautions fu labs Subjective Subjective limited Objective Last 24 Hour Vital Signs Date Time Temp Pulse Resp B/P Pulse Ox O2 Delivery O2 Flow Rate FiO2 11/03/16 12:00 97.7 58 21 131/87 97 Room Air 11/03/16 08:00 59 11/03/16 08:00 97.8 61 20 122/66 96 Room Air 11/03/16 04:00 61 11/03/16 04:00 97.9 53 21 120/71 97 Room Air 11/03/16 00:00 74 11/03/16 00:00 97.9 71 20 110/66 96 Room Air 11/02/16 21:00 76 11/02/16 20:00 97.0 70 21 139/73 82 Room Air 11/02/16 16:00 85 11/02/16 14:11 97.4 70 20 107/70 94 Room Air Intake and Output 11/02/16 11/03/16 19:00 07:00 Intake Total 1355 ml 200 ml Output Total 200 ml Balance 1155 ml 200 ml Intake Oral 200 ml IV Total 1355 ml Output Urine Total 200 ml # Voids 2 # Bowel Movements 1 1 Laboratory Tests Test 11/03/16 06:20 White Blood Count 8.9 K/UL (4.8-10.8) Red Blood Count 5.23 M/UL (4.70-6.10) Hemoglobin 16.0 G/DL (14.2-18.0) Hematocrit 50.5 % (42.0-52.0) Mean Corpuscular Volume 97 FL (80-99) Mean Corpuscular Hemoglobin 30.6 PG (27.0-31.0) Mean Corpuscular Hemoglobin Concent 31.7 G/DL (32.0-36.0) L Red Cell Distribution Width 12.6 % (11.6-14.8) Platelet Count 247 K/UL (150-450) Mean Platelet Volume 6.2 FL (6.5-10.1) L Neutrophils (%) (Auto) 50.9 % (45.0-75.0) Lymphocytes (%) (Auto) 33.4 % (20.0-45.0) Monocytes (%) (Auto) 8.3 % (1.0-10.0) Eosinophils (%) (Auto) 6.5 % (0.0-3.0) H Basophils (%) (Auto) 1.0 % (0.0-2.0) Prothrombin Time 11.4 SEC (9.30-11.50) Prothromb Time International Ratio 1.1 (0.9-1.1) Activated Partial Thromboplast Time 29 SEC (23-33) Sodium Level 142 mEQ/L (135-145) Potassium Level 4.4 mEQ/L (3.4-4.9) Chloride Level 107 mEQ/L (98-107) Carbon Dioxide Level 26 mEQ/L (20-30) Anion Gap 9 (5-15) Blood Urea Nitrogen 8 mg/dL (7-23) Creatinine 0.8 mg/dL (0.7-1.2) Estimat Glomerular Filtration Rate > 60 mL/min (>60) Glucose Level 115 mg/dL (74-106) H Calcium Level 9.3 mg/dL (8.6-10.2) Total Bilirubin 0.8 mg/dL (0.0-1.2) Aspartate Amino Transf (AST/SGOT) 33 U/L (5-40) Alanine Aminotransferase (ALT/SGPT) 27 U/L (3-41) Alkaline Phosphatase 116 U/L (40-129) Total Protein 7.0 g/dL (6.6-8.7) Albumin 3.3 g/dL (3.5-5.2) L Globulin 3.7 g/dL Albumin/Globulin Ratio 0.8 (1.0-2.7) L Amylase Level 125 U/L (10-110) H Lipase 62 U/L (< 60) H Height (Feet): 6 Height (Inches): 0.00 Weight (Pounds): 180 General Appearance: no apparent distress, alert Cardiovascular: normal rate Respiratory/Chest: normal breath sounds, no respiratory distress Abdominal Exam: normal bowel sounds, non tender, soft Donna Melgar N.P. Nov 03, 2016 13:23
[2016-11-03] MEDS ORDERED: Nitroglycerin Subl 0.4mg tab (Bottle Of 25) SL PRN (14:45)
[2016-11-03] MEDS ORDERED: Mylanta II UD 30ml ORAL PRN (15:30)
[2016-11-03] MEDS ORDERED: Morphine Sulfate 2mg/ml Inj IVP PRN (15:30)
[2016-11-03] MEDS: Esomeprazole sodium 40mg vial IVP SCH (20:52)
[2016-11-03] MEDS ORDERED: Miralax 17gm pkt ORAL PRN (21:00)
[2016-11-04] MEDS: D5NS 1,000 ML IV SCH ×2 (00:08→11:14)
[2016-11-04 04:00] VITALS: BP 151/80
[2016-11-04 06:35] LABS: BASOPHILS % (AUTO) 1.1 % (0.0-2.0); EOSINOPHILS % (AUTO) 6.7 % (0.0-3.0); LYMPHOCYTES % (AUTO) 28.5 % (20.0-45.0); MEAN CORPUSCULAR HEMOGLOBIN 30.5 PG (27.0-31.0); MEAN CORPUSCULAR HGB CONC 31.8 G/DL (32.0-36.0); MEAN CORPUSCULAR VOLUME 96 FL (80-99); MEAN PLATELET VOLUME 6.5 FL (6.5-10.1); MONOCYTES % (AUTO) 9.8 % (1.0-10.0); NEUTROPHILS % (AUTO) 53.9 % (45.0-75.0); PLATELET COUNT 220 K/UL (150-450); RED BLOOD COUNT 4.97 M/UL (4.70-6.10); RED CELL DISTRIBUTION WIDTH 12.6 % (11.6-14.8); WHITE BLOOD COUNT 7.9 K/UL (4.8-10.8)
[2016-11-04 06:51] LABS: ALANINE AMINOTRANSFERASE 24 U/L (3-41); ALBUMIN/GLOBULIN RATIO 1.1 (1.0-2.7); ANION GAP 10 (5-15); ASPARTATE AMINO TRANSFERASE 27 U/L (5-40); CALCIUM 9.2 mg/dL (8.6-10.2); CARBON DIOXIDE 27 mEQ/L (20-30); CHLORIDE 105 mEQ/L (98-107); CREATININE 0.9 mg/dL (0.7-1.2); CRP QUANT < 0.3 mg/dL (< 0.5); GLOMERULAR FILTRATION RATE > 60 mL/min (>60); HEMOLYSIS 4; MAGNESIUM 1.8 mg/dL (1.7-2.5); PHOSPHORUS 2.9 mg/dL (2.5-4.8); POTASSIUM 3.9 mEQ/L (3.4-4.9); SODIUM 142 mEQ/L (135-145); TOTAL PROTEIN 6.5 g/dL (6.6-8.7)
[2016-11-04 07:52] VITALS: BP 120/89
[2016-11-04] MEDS ORDERED: D5NS 1000ml IV ONE ×2 (08:47→13:49)
[2016-11-04] MEDS ORDERED: Tubing IV Secondary IV ONE (08:47)
[2016-11-04] MEDS: Sucralfate 1gm tab ORAL SCH (09:50)
[2016-11-04] MEDS: Esomeprazole sodium 40mg vial IVP SCH (09:50)
[2016-11-04 10:22] LABS: ERYTHROCYTE SEDIMENTATION RATE 12 MM/HR (0-20)
--- NOTE | 2016-11-04 10:32 | GI Progress Note ---
Assessment/Plan Problems: (1) Limited mobility ICD Codes: Z74.09 - Other reduced mobility SNOMED: 3546401 (2) Alzheimer disease ICD Codes: G30.9 - Alzheimer's disease, unspecified SNOMED: 96731984 (3) Coffee ground emesis ICD Codes: K92.0 - Hematemesis SNOMED: 465198004, 58779712 (4) Esophagitis ICD Codes: K20.9 - Esophagitis, unspecified SNOMED: 52621043 Status: stable Status Narrative Discussed with Dr. Kaur. Assessment/Plan s/p EGD SUMMARY OF FINDINGS: 1. Distal esophagitis. 2. Hiatal hernia. 3. Gastritis, status post biopsy. 4. Duodenitis. RECOMMENDATIONS: Follow up biopsies and treat accordingly >> H. Pylori positive >> Rx in patient chart, start tx as outpatient (8 week course and will require retest for HP after) monitor H&H, prn transfusions ppi + Carafate ST evaluation >> MOIST PUREE WITH NECTAR THICK LIQUIDS aspiration precautions fu labs Subjective Subjective limited Objective Last 24 Hour Vital Signs Date Time Temp Pulse Resp B/P (MAP) Pulse Ox O2 Delivery O2 Flow Rate FiO2 11/04/16 07:52 97.2 71 18 120/89 98 Room Air 11/04/16 04:00 97.3 62 18 151/80 97 11/03/16 23:54 98.4 62 19 141/90 97 Room Air 11/03/16 19:58 98.1 67 20 122/72 97 Room Air 11/03/16 16:06 97.3 60 19 105/48 97 Room Air 11/03/16 12:00 97.7 58 21 131/87 97 Room Air Laboratory Tests Test 11/04/16 04:40 11/04/16 05:40 White Blood Count 7.9 K/UL (4.8-10.8) Red Blood Count 4.97 M/UL (4.70-6.10) Hemoglobin 15.2 G/DL (14.2-18.0) Hematocrit 47.7 % (42.0-52.0) Mean Corpuscular Volume 96 FL (80-99) Mean Corpuscular Hemoglobin 30.5 PG (27.0-31.0) Mean Corpuscular Hemoglobin Concent 31.8 G/DL (32.0-36.0) L Red Cell Distribution Width 12.6 % (11.6-14.8) Platelet Count 220 K/UL (150-450) Mean Platelet Volume 6.5 FL (6.5-10.1) Neutrophils (%) (Auto) 53.9 % (45.0-75.0) Lymphocytes (%) (Auto) 28.5 % (20.0-45.0) Monocytes (%) (Auto) 9.8 % (1.0-10.0) Eosinophils (%) (Auto) 6.7 % (0.0-3.0) H Basophils (%) (Auto) 1.1 % (0.0-2.0) Erythrocyte Sedimentation Rate 12 MM/HR (0-20) Sodium Level 142 mEQ/L (135-145) Potassium Level 3.9 mEQ/L (3.4-4.9) Chloride Level 105 mEQ/L (98-107) Carbon Dioxide Level 27 mEQ/L (20-30) Anion Gap 10 (5-15) Blood Urea Nitrogen 6 mg/dL (7-23) L Creatinine 0.9 mg/dL (0.7-1.2) Estimat Glomerular Filtration Rate > 60 mL/min (>60) Glucose Level 96 mg/dL (74-106) Calcium Level 9.2 mg/dL (8.6-10.2) Phosphorus Level 2.9 mg/dL (2.5-4.8) Magnesium Level 1.8 mg/dL (1.7-2.5) Total Bilirubin 0.7 mg/dL (0.0-1.2) Aspartate Amino Transf (AST/SGOT) 27 U/L (5-40) Alanine Aminotransferase (ALT/SGPT) 24 U/L (3-41) Alkaline Phosphatase 104 U/L (40-129) C-Reactive Protein, Quantitative < 0.3 mg/dL (< 0.5) Total Protein 6.5 g/dL (6.6-8.7) L Albumin 3.5 g/dL (3.5-5.2) Globulin 3.0 g/dL Albumin/Globulin Ratio 1.1 (1.0-2.7) Height (Feet): 6 Height (Inches): 0.00 Weight (Pounds): 180 General Appearance: no apparent distress, alert Cardiovascular: normal rate Respiratory/Chest: normal breath sounds, no respiratory distress Abdominal Exam: non tender, soft Donna Melgar N.P. Nov 04, 2016 10:32
[2016-11-04 11:46] VITALS: BP 150/74
[2016-11-04 11:54] VITALS: BP 107/78
[2016-11-04] MEDS ORDERED: CARAFATE1 G1 ORAL ×2 (12:53→12:54)
[2016-11-04] MEDS ORDERED: NEXIUM I.V.40 MG IV (12:56)
[2016-11-04] MEDS ORDERED: ACETAMINOPHEN325 M1 ORAL (12:57)
[2016-11-04] MEDS ORDERED: MYLANTA II30 ML PO (12:59)
[2016-11-04] MEDS ORDERED: DIPHENHYDRAMINE25 M1 ORAL (13:00)
[2016-11-04] MEDS ORDERED: NITROGLYCERIN0.4 MG SL (13:01)
[2016-11-04] MEDS ORDERED: NEXIUM40 MG ORAL (13:03)
[2016-11-04] MEDS ORDERED: ZOFRAN4 M3 ORAL (13:04)
[2016-11-04] MEDS ORDERED: MIRALAX17 G2 ORAL (13:06)
[2016-11-04] MEDS ORDERED: TEMAZEPAM30 MG ORAL (13:07)
[2016-11-04] MEDS ORDERED: AMOXICILLI250 MG/5 M ORAL (13:29)
[2016-11-04] MEDS ORDERED: CLARITHROMYCIN500 MG PO (13:30)
[2016-11-04] MEDS ORDERED: OMEPRAZOLE40 M1 ORAL ×2 (13:31→13:32)
--- NOTE | 2016-11-04 15:44 | Cardiology Report ---
APPROVED REPORT EKG Measurement Heart [id number] Normal sinus rhythm Normal ECG
--- NOTE | 2016-11-05 13:40 | Diagnostic Imaging Report ---
APPROVED REPORT CPT Code: 87496 Present Symptoms Comments: R/O DVT Technically difficult study (bilateral contractures of the hip and knee). RIGHT LEG: Venous imaging reveals a patent deep venous system. There is no evidence of thrombus within the femoral, popliteal or tibial segments. The greater saphenous vein is also within normal limits. Doppler indicates normal spontaneous flow within these segments. LEFT LEG: Venous imaging reveals a patent deep venous system. There is no evidence of thrombus within the femoral, popliteal or tibial segments. The greater saphenous vein is also within normal limits. Doppler indicates normal spontaneous flow within these segments. The popliteal and calf veins were not well visualized due to bilateral contracture.
--- NOTE | 2016-11-05 15:46 | Discharge Summary ---
Discharge Summary Hospital Course Date of Admission Nov 02, 2016 at 10:34 Date of Discharge Nov 04, 2016 at 13:50 Admitting Diagnosis g.i. bleed HPI Dale Audra Maravilla is a 71 year old male who was admitted on Nov 02, 2016 at 10:34 for Gastrointestinal Bleed Hospital Course [id number] Discharge Discharge Disposition Patient was discharged to SNF/Subacute Facility(03) Discharge Diagnoses: Lilliana Cummings NP Nov 05, 2016 15:46
--- NOTE | 2016-11-06 06:32 | Discharge Summary 2 SIG ---
DATE OF ADMISSION: 11/02/2016 DATE OF DISCHARGE: 11/04/2016 ENGRAVER SET UP OPERATOR: Tr Kaur M.D. BRIEF HOSPITAL COURSE: The patient is a 71-year-old male, who is nonverbal with history of dementia, hypertension and schizophrenia with recent hospitalization for upper gastrointestinal bleed and was diagnosed to have esophagitis, was brought in from [facility] due to alleged 200 mL coffee-grounds emesis at the SNF. On evaluation at ED, he was given IV Zofran and Protonix. EKG was in normal sinus rhythm and chest x-ray showed right-sided hiatal hernia. Hemoglobin was stable. He was admitted to telemetry for evaluation of coffee-grounds emesis and esophagitis and GI was consulted. He was initially placed on NPO and was given IV hydration. He had EGD during prior admission that showed positive for H. pylori. He was given proton pump inhibitors and Carafate. He underwent swallow evaluation and diet was advanced. Hemoglobin and hematocrit remained stable. He was then discharged, advised to complete 8-week course of H. pylori treatment and would require a retest post treatment. He was eventually discharged back to SNF. FINAL DIAGNOSES: 1. Helicobacter pylori infection. 2. Coffee-grounds emesis with esophagitis. 3. Gastritis. 4. Hiatal hernia. 5. Alzheimer disease. 6. Chronic obstructive pulmonary disease. 7. Psychosis. DISPOSITION: The patient was discharged to SNF. DISCHARGE MEDICATIONS: Refer to medication list. Rocio Uriarte M.D. I have been assigned to dictate discharge summary on this account and I was not involved in the patient's management. Lilliana Cummings N.P. DR: JAMIE JOB#: [id number] CC: LESA
--- NOTE | 2016-11-06 15:25 | Diagnostic Imaging Report ---
Indication: Dysphasia Procedure and findings: Real-time fluoroscopic imaging performed in a lateral projection in conjunction with the speech pathologist evaluation. Variable consistencies of barium given per mouth. Findings: Significant abnormalities of both oral and pharyngeal phases of swallowing are demonstrated. Total fluoroscopic time 210 seconds. Trace laryngeal penetration demonstrated with thin barium and nectar. Abnormal video swallow. Please refer to speech pathology evaluation for more information.
== END 2016-11-04 13:50 | DRG 392 ==
LOC: EDBD 09:58 → EMR 10:33 → 2E 10:34 → EDBEDREQ 11:10 → 4W 11-03 14:20
DX: K20.9 Esophagitis, unspecified (principal); G30.9 Alzheimer's disease, unspecified; F20.9 Schizophrenia, unspecified; J44.9 Chronic obstructive pulmonary disease, unspecified; F02.80 Dementia in other diseases classified elsewhere, unspecified severity, without behavioral disturbance, psychotic disturbance, mood disturbance, and anxiety; I10 Essential (primary) hypertension; K44.9 Diaphragmatic hernia without obstruction or gangrene; K29.80 Duodenitis without bleeding; K29.70 Gastritis, unspecified, without bleeding; B96.81 Helicobacter pylori [H. pylori] as the cause of diseases classified elsewhere; K22.8 Other specified diseases of esophagus; Z79.82 Long term (current) use of aspirin
CPT/HCPCS: 36415; 71010; 74230; 80053; 81003; 82150; 83690; 83735; 84100; 85025; 85610; 85651; 85730; 86140; 86850; 86900; 86901; 86920; 87081; 93005; 93970; J2405

== ENCOUNTER 2017-02-09 09:01 | Outpatient (CLI) | payer MEDICARE, OTHER ==
[~2017-02-09 09:01] MED LIST changes: +ACETAMINOPHEN325 M1 ORAL; +AMOXICILLI250 MG/5 M ORAL; +CLARITHROMYCIN500 MG PO; +DIPHENHYDRAMINE25 M1 ORAL; +MIRALAX17 G2 ORAL; +MYLANTA II30 ML PO; +NEXIUM I.V.40 MG IV; +NEXIUM40 MG ORAL; +NITROGLYCERIN0.4 MG SL; +OMEPRAZOLE40 M1 ORAL; +TEMAZEPAM30 MG ORAL; +ZOFRAN4 M3 ORAL
[2017-02-09 09:24] VITALS: BP 142/74
--- NOTE | 2017-02-09 09:56 | GI Progress Note ---
Assessment/Plan Problems: (1) Helicobacter pylori (H. pylori) ICD Codes: A04.8 - Other specified bacterial intestinal infections SNOMED: 220734921 (2) Psychosis ICD Codes: F29 - Unspecified psychosis not due to a substance or known physiological condition SNOMED: 68073393 (3) Limited mobility ICD Codes: Z74.09 - Other reduced mobility SNOMED: 9227266 (4) Alzheimer disease ICD Codes: G30.9 - Alzheimer's disease, unspecified SNOMED: 35082108 (5) UTI (urinary tract infection) ICD Codes: N39.0 - Urinary tract infection, site not specified SNOMED: 93199286 (6) Sepsis ICD Codes: A41.9 - Sepsis, unspecified organism SNOMED: 96248220 Status: stable Status Narrative Seen with Dr. Kaur. Assessment/Plan s/p EGD SUMMARY OF FINDINGS: 1. Distal esophagitis. 2. Hiatal hernia. 3. Gastritis, status post biopsy. 4. Duodenitis. RECOMMENDATIONS: ordered H. Pylori stool test >> patient unable to do BT RTC if positive, otherwise PRN colonoscopy if indicated Subjective Subjective limited Objective Last 24 Hour Vital Signs Date Time Temp Pulse Resp B/P (MAP) Pulse Ox O2 Delivery O2 Flow Rate FiO2 02/09/17 09:24 98.6 88 16 142/74 95 General Appearance: no apparent distress, alert Cardiovascular: normal rate Respiratory/Chest: normal breath sounds, no respiratory distress Abdominal Exam: normal bowel sounds, non tender, soft Extremities: non-tender, other Donna Melgar N.P. Feb 09, 2017 09:56
== END 2017-02-09 10:05 | disposition home or self-care (01) ==
LOC: PAN 09:01
DX: A04.8 Other specified bacterial intestinal infections (principal); F29 Unspecified psychosis not due to a substance or known physiological condition; Z74.09 Other reduced mobility; G30.9 Alzheimer's disease, unspecified; N39.0 Urinary tract infection, site not specified; A41.9 Sepsis, unspecified organism; K20.9 Esophagitis, unspecified; K44.9 Diaphragmatic hernia without obstruction or gangrene; K29.70 Gastritis, unspecified, without bleeding; K29.80 Duodenitis without bleeding
CPT/HCPCS: 99211

== ENCOUNTER 2017-03-03 19:21 | Inpatient (IN) | payer MEDICARE, OTHER ==
[~2017-03-03] VITALS: Ht 172.7 cm; Wt 68.2 kg
[2017-03-03 19:30] VITALS: BP 129/73
[2017-03-03] MEDS ORDERED: Sodium Chloride 500ML 500 ML IV ONE (19:35)
[2017-03-03] MEDS ORDERED: Albuterol ud Inhalation ONE (19:49)
[2017-03-03] MEDS ORDERED: Ipratropium 0.02% Inh Soln 2.5ml UD ONE (19:49)
[2017-03-03] MEDS: Albuterol ud Inhalation HHN SCH ×3 (19:56→20:37)
[2017-03-03] MEDS: Ipratropium 0.02% Inh Soln 2.5ml UD HHN SCH ×3 (19:56→20:37)
[2017-03-03 20:30] VITALS: BP 120/69
[2017-03-03 21:13] LABS: APPEARANCE,URINE CLOUDY; BILIRUBIN, URINE 1+ (NEGATIVE); GLUCOSE, URINE (UA) NEGATIVE (NEGATIVE); KETONES,URINE 1+ (NEGATIVE); LEUKOCYTE ESTERASE ,URINE 3+ (NEGATIVE); NITRITE,URINE POSITIVE (NEGATIVE); PH,URINE 5 (4.5-8.0); PROTEIN,URINE 2+ (NEGATIVE); UROBILINOGEN,URINE 8 MG/DL (0.0-1.0)
[2017-03-03 21:15] LABS: COLOR,URINE AMBER
[2017-03-03 21:19] LABS: HEMATOCRIT 17.7 % (42.0-52.0); MEAN CORPUSCULAR VOLUME 99 FL (80-99); PLATELET COUNT 81 K/UL (150-450); RED BLOOD COUNT 1.79 M/UL (4.70-6.10); RED CELL DISTRIBUTION WIDTH 13.9 % (11.6-14.8); WHITE BLOOD COUNT 4.6 K/UL (4.8-10.8)
[2017-03-03 21:23] LABS: HEMOGLOBIN 4.9 G/DL (14.2-18.0)
[2017-03-03 21:30] VITALS: BP 122/70
[2017-03-03 22:14] LABS: INR 1.2 (0.9-1.1)
[2017-03-03] MEDS ORDERED: MYLANTA II30 ML PO (22:21)
[2017-03-03] MEDS ORDERED: ZOFRAN4 M3 ORAL (22:21)
[2017-03-03 22:30] VITALS: BP 118/61
[2017-03-03 22:44] LABS: ANION GAP 15 mmol/L (5-15); BLOOD UREA NITROGEN 31 mg/dL (7-18); CARBON DIOXIDE 16 MMOL/L (21-32); CHLORIDE 136 MMOL/L (98-107); CREATININE 1.1 MG/DL (0.55-1.30); POTASSIUM 2.2 MMOL/L (3.5-5.1); SODIUM 167 MMOL/L (136-145)
[2017-03-03 22:45] LABS: ALANINE AMINOTRANSFERASE 48 U/L (12-78); ALBUMIN 1.6 G/DL (3.4-5.0); ALBUMIN/GLOBULIN RATIO 0.6 (1.0-2.7); ASPARTATE AMINO TRANSFERASE 38 U/L (15-37); BILIRUBIN,TOTAL 0.5 MG/DL (0.2-1.0); CREATINE KINASE 180 U/L (26-140)
[2017-03-03 22:46] LABS: ALKALINE PHOSPHATASE 70 U/L (46-116)
[2017-03-03 22:56] LABS: BASOPHILS % (AUTO) 0.6 % (0.0-2.0); EOSINOPHILS % (AUTO) 0.2 % (0.0-3.0); HEMATOCRIT 63.5 % (42.0-52.0); HEMOGLOBIN 17.9 G/DL (14.2-18.0); LYMPHOCYTES % (AUTO) 15.8 % (20.0-45.0); MEAN CORPUSCULAR VOLUME 97 FL (80-99); MONOCYTES % (AUTO) 8.3 % (1.0-10.0); NEUTROPHILS % (AUTO) 75.1 % (45.0-75.0); PLATELET COUNT 263 K/UL (150-450); RED BLOOD COUNT 6.54 M/UL (4.70-6.10); RED CELL DISTRIBUTION WIDTH 13.6 % (11.6-14.8); WHITE BLOOD COUNT 15.7 K/UL (4.8-10.8)
[2017-03-03] MEDS ORDERED: Calcium Gluconate 1gm/10ml vial IVP ONE (23:00)
[2017-03-03] MEDS ORDERED: Vancomycin 1 GM in NS 275 ML IV ONE (23:00)
[2017-03-03 23:09] LABS: BASOPHILS % (AUTO) 0.6 % (0.0-2.0); EOSINOPHILS % (AUTO) 0.2 % (0.0-3.0); HEMATOCRIT 62.8 % (42.0-52.0); HEMOGLOBIN 17.7 G/DL (14.2-18.0); MEAN CORPUSCULAR VOLUME 97 FL (80-99); MONOCYTES % (AUTO) 7.5 % (1.0-10.0); NEUTROPHILS % (AUTO) 77.8 % (45.0-75.0); PLATELET COUNT 258 K/UL (150-450); RED BLOOD COUNT 6.49 M/UL (4.70-6.10); RED CELL DISTRIBUTION WIDTH 13.4 % (11.6-14.8); WHITE BLOOD COUNT 16.7 K/UL (4.8-10.8)
[2017-03-03] MEDS ORDERED: Acetaminophen 650 MG SUPP RECTAL ONE (23:15)
--- NOTE | 2017-03-03 23:24 | Emergency Room Report ---
History of Present Illness General Chief Complaint: Dyspnea/Respdistress Source: Medical Record Present Illness HPI 71-year-old male presents ED for evaluation. Per EMS patient noted to be short of breath at the intermediate. Patient is nonverbal at baseline and unable to provide any initial history. Patient is febrile. No other aggravating or leading factors. Denies any other associated symptoms Allergies: Coded Allergies: No Known Allergies (Unverified , 10/20/16) Patient History Past Medical History: HTN, GI bleed, dementia, psych hx Social History: Denies: smoking, alcohol use, drug use Immunizations: UTD Reviewed Nursing Documentation: PMH: Agreed, PSxH: Agreed Nursing Documentation-PMH Hx Hypertension: Yes Hx Pacemaker: No Hx Asthma: No Hx COPD: Yes Hx Diabetes: No Hx Cancer: No Hx Gastrointestinal Problems: Yes - GI hemorrhage, esophagitis, GERD Hx Dialysis: No History Of Psychiatric Problem: Yes - Alzheimers, Dementia, paranoid schizophrenia Hx Cerebrovascular Accident: No Hx Seizures: No Review of Systems All Other Systems: limited Physical Exam Vital Signs Date Time Temp Pulse Resp B/P (MAP) Pulse Ox O2 Delivery O2 Flow Rate FiO2 03/03/17 19:29 101.7 122 39 129/73 100 Non-Rebreather 15.0 03/03/17 19:56 100 General Appearance: moderate distress, lethargic, thin Head: normocephalic Eyes: bilateral eye normal inspection, bilateral eye PERRL ENT: normal ENT inspection Neck: normal inspection Respiratory: decreased breath sounds, accessory muscle use Cardiovascular #1: no edema, tachycardia Gastrointestinal: normal bowel sounds, non tender, soft, non-distended, no guarding, no rebound Rectal: deferred Genitourinary: no CVA tenderness Musculoskeletal: normal inspection Neurologic: other - nonverbal Psychiatric: other - nonverbal Skin: normal inspection Lymphatic: normal inspection Procedures Critical Care Time Critical Care Time i. I feel this is a highly complex case requiring extensive working including EKG/Rhythm strip, Xray/CT/US, Blood/urine lab work, repeat exams while in ED, and administration of strong opiates/narcotics for pain control, admission to hospital or close patient follow up. Total time: 30 min bedside evaluation and treatment excludes procedures (EKG). Reason for critical care: Respiratory distress, electrolyte derangement, Possible complications: hypotension, hypertension, TX, shock, arrhythmias, metabolic acidosis, end organ damage, respiratory failure. Interventions: Labs, IV fluids, EKG, chest x-ray, breathing treatment, ABG, central line, antibiotics, calcium, Course: Patient brought in for respiratory distress. Reduced breath sounds noted. Breathing treatment started. ABG shows significant hypoxia. O2 sats improved. Labs show severe electrolyte derangement. UTI. Questionable severe anemia. Initial hemoglobin 4.9 but repeat hemoglobin are markedly elevated. Patient has poor IV access. Central line placed. Calcium repleted. IV potassium given. abx given. IV fluids given Consultations: nursing staff, EMS, family Performed by: Dr Alegria Tolerated well condition = critical j. because of unstable vital signs this patient had a condition that could potentially threaten life or limb. I feel this is a critical patient who required my full attention while patient was considered critical. Total Critical Care Time excluding procedures was greater than 35 minutes Central Line Central Line : Consent: Verbal Central Line Lumen: triple Maximal Sterile Barrier Tech: yes cap, yes mask, yes sterile gown, yes sterile gloves, yes large sterile sheet, yes hand hygiene, yes chlorhexidine prep Central Line Postion: femoral (R) Anesthesia: Lidocaine Complications: none Central Line Post Position: sutured, good blood return Attempts: One Patient Tolerated: Well Complications: None Medical Decision Making Diagnostic Impression: Primary Impression: Hypernatremia Additional Impressions: Hypokalemia Hypocalcemia UTI (urinary tract infection) Qualified Codes: N39.0 - Urinary tract infection, site not specified Respiratory distress COPD (chronic obstructive pulmonary disease) Qualified Codes: J44.9 - Chronic obstructive pulmonary disease, unspecified Alzheimer disease Qualified Codes: G30.9 - Alzheimer's disease, unspecified; F02.80 - Dementia in other diseases classified elsewhere without behavioral disturbance ER Course Hospital Course 71-year-old male presents ED with shortness of breath, reduced breath sounds Differential diagnoses include: Pneumonia, CHF exacerbation, pneumothorax, fluid overload Clinical course Patient placed on stretcher. 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 After initial history and physical, I ordered nebulizer treatments. I ordered labs, IV fluids, EKG, chest x-ray, blood cultures, UA, abg Patient given rectal Tylenol for fever Labs - leukopenia noted, initial Hb 4.9, Na > 167, K <2.2, Ca 5.0, UA + bacteria CXR -R elevated hemidiaphragm EKG - sinus tachycardia, no acute ischemic changes interpreted by me Repeat hemoglobin elevated. Patient has poor IV access. Right femoral central line placed. IV hydration continued. Antibiotics given. IV potassium started. IV calcium given. Case discussed with Dr. Charles (covering for Dr Uriarte) and he agreed to the patient to his service for further care and support I feel this is a highly complex case requiring extensive working including EKG/ Rhythm strip, Xray/CT/US, Blood/urine lab work, repeat exams while in ED, and administration of strong opiates/narcotics for pain control, admission to hospital or close patient follow up. Diagnosis - hypernatremia, hypocalcemia, hypokalemia, UTI, respiratory distress , COPD, Alzheimer's Admitted to ICU in critical condition Labs Test 03/03/17 19:35 03/03/17 20:50 03/03/17 21:45 03/03/17 23:04 Arterial Blood pH 7.474 (7.350-7.450) Arterial Blood Partial Pressure CO2 25.9 mmHg (35.0-45.0) Arterial Blood Partial Pressure O2 65.8 mmHg (75.0-100.0) Arterial Blood HCO3 18.6 mmol/L (22.0-26.0) Arterial Blood Oxygen Saturation 93.5 % (92.0-98.0) Arterial Blood Base Excess -2.6 Ulises Test Positive White Blood Count 4.6 K/UL (4.8-10.8) 15.7 K/UL (4.8-10.8) 16.7 K/UL (4.8-10.8) Red Blood Count 1.79 M/UL (4.70-6.10) 6.54 M/UL (4.70-6.10) 6.49 M/UL (4.70-6.10) Hemoglobin 4.9 G/DL (14.2-18.0) 17.9 G/DL (14.2-18.0) 17.7 G/DL (14.2-18.0) Hematocrit 17.7 % (42.0-52.0) 63.5 % (42.0-52.0) 62.8 % (42.0-52.0) Mean Corpuscular Volume 99 FL (80-99) 97 FL (80-99) 97 FL (80-99) Mean Corpuscular Hemoglobin 27.7 PG (27.0-31.0) 27.4 PG (27.0-31.0) 27.2 PG (27.0-31.0) Mean Corpuscular Hemoglobin Concent 27.9 G/DL (32.0-36.0) 28.2 G/DL (32.0-36.0) 28.1 G/DL (32.0-36.0) Red Cell Distribution Width 13.9 % (11.6-14.8) 13.6 % (11.6-14.8) 13.4 % (11.6-14.8) Platelet Count 81 K/UL (150-450) 263 K/UL (150-450) 258 K/UL (150-450) Mean Platelet Volume 7.8 FL (6.5-10.1) 7.7 FL (6.5-10.1) 7.4 FL (6.5-10.1) Neutrophils (%) (Auto) % (45.0-75.0) 75.1 % (45.0-75.0) 77.8 % (45.0-75.0) Lymphocytes (%) (Auto) % (20.0-45.0) 15.8 % (20.0-45.0) 14.0 % (20.0-45.0) Monocytes (%) (Auto) % (1.0-10.0) 8.3 % (1.0-10.0) 7.5 % (1.0-10.0) Eosinophils (%) (Auto) % (0.0-3.0) 0.2 % (0.0-3.0) 0.2 % (0.0-3.0) Basophils (%) (Auto) % (0.0-2.0) 0.6 % (0.0-2.0) 0.6 % (0.0-2.0) Differential Total Cells Counted 100 Neutrophils % (Manual) 82 % (45-75) Lymphocytes % (Manual) 14 % (20-45) Monocytes % (Manual) 4 % (1-10) Eosinophils % (Manual) 0 % (0-3) Basophils % (Manual) 0 % (0-2) Band Neutrophils 0 % (0-8) Platelet Estimate Decreased Platelet Morphology Normal Polychromasia 1+ Hypochromasia 2+ Anisocytosis 1+ Prothrombin Time 12.4 SEC (9.30-11.50) Prothromb Time International Ratio 1.2 (0.9-1.1) Activated Partial Thromboplast Time 22 SEC (23-33) Urine Color Mariann Urine Appearance Cloudy Urine pH 5 (4.5-8.0) Urine Specific Scalf 1.015 (1.005-1.035) Urine Protein 2+ (NEGATIVE) Urine Glucose (UA) Negative (NEGATIVE) Urine Ketones 1+ (NEGATIVE) Urine Occult Blood 5+ (NEGATIVE) Urine Nitrite Positive (NEGATIVE) Urine Bilirubin 1+ (NEGATIVE) Urine Ictotest Positive Urine Urobilinogen 8 MG/DL (0.0-1.0) Urine Leukocyte Esterase 3+ (NEGATIVE) Urine RBC Tntc /HPF (0 - 0) Urine WBC 10-15 /HPF (0 - 0) Urine Squamous Epithelial Cells None /LPF (NONE/OCC) Urine Bacteria Many /HPF (NONE) Lactic Acid Level 1.50 mmol/L (0.66-2.22) Troponin I 0.024 ng/mL (0.000-0.056) Sodium Level 167 MMOL/L (136-145) Potassium Level 2.2 MMOL/L (3.5-5.1) Chloride Level 136 MMOL/L (98-107) Carbon Dioxide Level 16 MMOL/L (21-32) Anion Gap 15 mmol/L (5-15) Blood Urea Nitrogen 31 mg/dL (7-18) Creatinine 1.1 MG/DL (0.55-1.30) Estimat Glomerular Filtration Rate mL/min (>60) Glucose Level 98 MG/DL (74-106) Calcium Level 5.0 MG/DL (8.5-10.1) Total Bilirubin 0.5 MG/DL (0.2-1.0) Aspartate Amino Transf (AST/SGOT) 38 U/L (15-37) Alanine Aminotransferase (ALT/SGPT) 48 U/L (12-78) Alkaline Phosphatase 70 U/L (46-116) Total Creatine Kinase 180 U/L (26-140) Creatine Kinase MB 0.0 NG/ML (0.0-3.6) Creatine Kinase MB Relative Index 0.0 Pro-B-Type Natriuretic Peptide 75 pg/mL (0-125) Total Protein 4.5 G/DL (6.4-8.2) Albumin 1.6 G/DL (3.4-5.0) Globulin 2.9 g/dL Albumin/Globulin Ratio 0.6 (1.0-2.7) EKG Diagnostic Results Rate: tachycardiac Rhythm: NSR ST Segments: no acute changes ASA given to the pt in ED: No Rhythm Strip Diag. Results EP Interpretation: yes Rhythm: NSR, no PVC's, no ectopy Chest X-Ray Diagnostic Results Chest X-Ray Diagnostic Results : Chest X-Ray Ordered: Yes # of Views/Limited/Complete: 1 View Indication: Shortness of Breath EP Interpretation: Yes Interpretation: no pneumothorax, no acute cardiopulmonary disease, other - R hemidiaphragm elevated Impression: Other - elevated R hemidiaphragm Electronically Signed by: Electronically signed by Joseluis Alegria MD Last Vital Signs Date Time Temp Pulse Resp B/P (MAP) Pulse Ox O2 Delivery O2 Flow Rate FiO2 03/03/17 20:39 120 25 93 Non-Rebreather 03/03/17 19:56 100 03/03/17 19:30 101.7 129/73 15.0 Status: improved Disposition: ADMITTED INPATIENT Condition: Critical Referrals: MARCELA URIARTE (PCP) JOSELUIS ALEGRIA M.D. Mar 03, 2017 23:24
[2017-03-03] MEDS ORDERED: Vancomycin 1gm inj IVPB ONE (23:26)
[2017-03-03 23:52] VITALS: BP 123/61
[2017-03-04] VITALS (37 sets, daily range): BP systolic 89–150; BP diastolic 52–126
[2017-03-04 01:49] LABS: BASOPHILS % (AUTO) 0.4 % (0.0-2.0); EOSINOPHILS % (AUTO) 0.1 % (0.0-3.0); HEMATOCRIT 37.2 % (42.0-52.0); HEMOGLOBIN 11.3 G/DL (14.2-18.0); LYMPHOCYTES % (AUTO) 10.2 % (20.0-45.0); MEAN CORPUSCULAR VOLUME 97 FL (80-99); NEUTROPHILS % (AUTO) 80.4 % (45.0-75.0); PLATELET COUNT 141 K/UL (150-450); RED BLOOD COUNT 3.84 M/UL (4.70-6.10); RED CELL DISTRIBUTION WIDTH 13.6 % (11.6-14.8); WHITE BLOOD COUNT 12.1 K/UL (4.8-10.8)
--- NOTE | 2017-03-04 08:11 | Emergency Room Report ---
History of Present Illness General Chief Complaint: Dyspnea/Respdistress Source: Medical Record Present Illness HPI I was called to the ICU from the emergency department to intubate this patient. Apparently he is altered mental status needs to be intubated. He has a history of COPD. Allergies: Coded Allergies: No Known Allergies (Unverified , 10/20/16) Nursing Documentation-PMH Hx Hypertension: Yes Hx Pacemaker: No Hx Asthma: No Hx COPD: Yes Hx Diabetes: No Hx Cancer: No Hx Gastrointestinal Problems: Yes - GI hemorrhage, esophagitis, GERD Hx Dialysis: No History Of Psychiatric Problem: Yes - Alzheimers, Dementia, paranoid schizophrenia Hx Cerebrovascular Accident: No Hx Seizures: No Physical Exam Vital Signs Date Time Temp Pulse Resp B/P (MAP) Pulse Ox O2 Delivery O2 Flow Rate FiO2 03/03/17 19:29 101.7 122 39 129/73 100 Non-Rebreather 15.0 03/03/17 19:56 100 Procedures Intubation Intubation : Consent: Emergent Time of Intubation: 08:00 Intubation Method: orotracheal Tube Size (cm): 7.5 Medications: Etomidate, Succinylcholine Breath Sounds after Intubation: equal Intubation Complications: no complications Post Intubation Xray: Yes Progress/Xray Impression: appropriate tube placement Attempts: One Patient Tolerated: Well Complications: None Medical Decision Making Diagnostic Impression: Primary Impression: Hypernatremia Additional Impressions: COPD (chronic obstructive pulmonary disease) Qualified Codes: J44.9 - Chronic obstructive pulmonary disease, unspecified Alzheimer disease Qualified Codes: G30.9 - Alzheimer's disease, unspecified; F02.80 - Dementia in other diseases classified elsewhere without behavioral disturbance Respiratory distress UTI (urinary tract infection) Qualified Codes: N39.0 - Urinary tract infection, site not specified Hypokalemia Hypocalcemia Respiratory failure ER Course This patient underwent rapid sequence intubation an emergent basis in the ICU. There were no complications. This patient is to be further managed by the inpatient critical care physician. Chest X-Ray Diagnostic Results Chest X-Ray Diagnostic Results : Chest X-Ray Ordered: Yes # of Views/Limited/Complete: 1 View Indication: Other EP Interpretation: Yes Interpretation: other - appropriate tube placement Impression: Other Electronically Signed by: Brenda Last Vital Signs Date Time Temp Pulse Resp B/P (MAP) Pulse Ox O2 Delivery O2 Flow Rate FiO2 12/21/17 07:30 99.8 124 44 100/70 92 Non-Rebreather 15.0 03/04/17 06:25 100 Disposition: ADMITTED INPATIENT Condition: Critical Referrals: MARCELA SCHULZ (PCP) CORA TAO D.O. Mar 04, 2017 08:11
--- NOTE | 2017-03-04 08:17 | History & Physical ---
History and Physical History & Physicial seen and examined. Dictation completed # [id number] Colton Charles MD Mar 04, 2017 08:17
[2017-03-04] MEDS ORDERED: D5 1/2NS 1,000 ML IV SCH (08:45)
[2017-03-04] MEDS ORDERED: Pantoprazole Inj IVP SCH (09:00)
--- NOTE | 2017-03-04 09:17 | Diagnostic Imaging Report ---
Indication: Reason For Exam: TUBE [facility] Technique: One view of the chest Comparison: 03/03/2017 Findings: Interim endotracheal intubation, endotracheal tube tip in good position projecting approximately 5 cm above the donte. Interim nasogastric intubation, nasogastric tube tip projecting at the level of the gastric antrum. Again demonstrated is marked elevation of the right hemidiaphragm and associated basilar atelectatic changes. The hepatic flexure of the colon is again seen under the right hemidiaphragm. There is some atelectasis and/or scarring at the left lung base as well. Heart size is difficult to assess, likely upper limits of normal. There may be some hazy infiltrate at the left lung base as well. Impression: Satisfactory endotracheal and nasogastric intubation Other stable findings as described
[2017-03-04] MEDS: Vancomycin 1gm/D5W 275ml IVPB SCH ×4 (09:44→21:33)
[2017-03-04 10:18] LABS: HEMOGLOBIN 16.8 G/DL (14.2-18.0); MEAN CORPUSCULAR VOLUME 97 FL (80-99); PLATELET COUNT 191 K/UL (150-450); RED BLOOD COUNT 5.96 M/UL (4.70-6.10); RED CELL DISTRIBUTION WIDTH 13.7 % (11.6-14.8); WHITE BLOOD COUNT 20.4 K/UL (4.8-10.8)
--- NOTE | 2017-03-04 10:23 | Pulmonolgy Critical Care Note ---
Critical Care - Asmt/Plan Problems: (1) Chronic paranoid schizophrenia (2) [facility] resident (3) Respiratory disorder with ventilator dependence (4) Healthcare associated bacterial pneumonia (5) UTI (urinary tract infection) (6) SIRS (systemic inflammatory response syndrome) (7) Alzheimer disease (8) Hypokalemia (9) Hypernatremia Assessment/Plan: -Continue ventilatory support --> A/C 16, TV 450, PEEP 5, FiO2 50 -Titrate down FiO2 to keep SaO2 > 90% -F/U repeat ABG -Optimize pulmonary hygiene/mobilize as tolerated -RTC and PRN HHN's -Frequent inline suctioning -Monitor volumes -Continue IVF -F/U STAT repeat labs sent -Monitor electrolytes and adjust accordingly -Continue Vanco & Zosyn (D2), F/U Cx's -Monitor MS, PRN sedation only -Hep SQ -PPI -Once stable will start enteral feeds -FC, continue to address GOC CC (60) Critical Care - Objective Last 24 Hour Vital Signs Date Time Temp Pulse Resp B/P (MAP) Pulse Ox O2 Delivery O2 Flow Rate FiO2 03/04/17 10:09 50 03/04/17 08:26 128 40 Mechanical Ventilator 100 03/04/17 08:14 125 35 100 03/04/17 08:00 100 03/04/17 07:30 99.8 124 44 100/70 92 Non-Rebreather 15.0 03/04/17 06:59 128 33 100/79 100 Non-Rebreather 15.0 03/04/17 06:49 99.5 125 35 97/74 100 Non-Rebreather 15.0 03/04/17 06:25 98.8 128 37 105/70 98 Non-Rebreather 15.0 100 03/04/17 06:25 98.8 128 37 105/70 99 Non-Rebreather 15.0 03/04/17 05:30 98.8 125 33 103/58 99 Non-Rebreather 15.0 03/04/17 04:30 98.8 122 36 120/100 99 Non-Rebreather 15.0 03/04/17 03:30 99.7 120 40 105/56 99 Non-Rebreather 15.0 03/04/17 02:30 99.7 118 40 130/71 96 Non-Rebreather 15.0 03/04/17 01:30 99.9 117 38 117/70 98 Non-Rebreather 15.0 03/04/17 00:30 99.9 118 39 119/86 98 Non-Rebreather 15.0 03/03/17 23:52 101.7 122 33 123/61 100 Non-Rebreather 15.0 03/03/17 23:42 99.9 03/03/17 22:30 101.7 130 32 118/61 100 Non-Rebreather 15.0 03/03/17 21:30 101.7 123 31 122/70 100 Non-Rebreather 15.0 03/03/17 20:39 120 25 93 Non-Rebreather 03/03/17 20:30 101.7 123 34 120/69 100 Non-Rebreather 15.0 03/03/17 19:56 111 24 90 Non-Rebreather 100 03/03/17 19:56 111 24 Non-Rebreather 100 03/03/17 19:30 101.7 127 39 129/73 100 Non-Rebreather 15.0 03/03/17 19:30 127 39 Non-Rebreather 15.0 03/03/17 19:29 101.7 122 39 129/73 100 Non-Rebreather 15.0 Status: sedated Condition: critical HEENT: atraumatic, normocephalic, other - ETT, OGT Neck: other - Supple no LAD Lungs: rhonchi - scattered coarse b rales Heart: HR/BP stable Abdomen: soft, non-tender, active bowel sounds Extremities: no C/C/E, other - + contractures Micro: Microbiology Date/Time Source Procedure Growth Status 03/03/17 20:50 Nasal Nares Influenza Types A,B Antigen (GENEVIEVE) - Final Complete Critical Care - Subjective ROS Limited/Unobtainable: Yes ICU Day: 1 Intubation Day: 1 Interval Events: 71 M NHR h/o AD, CPS, prior admissions with GIB/gastritis BIB EMS O/N with hypxoxemia, fevers, PNA He was hydrated, started on BXABx, PanCX and sent to ICU, shortly thereafter had to be emergently intubated He is currently sedated, stable hemodynamically and on the vent Initial H 4.9 in ER was a mistake, was repeated and was normal Condition: critical IV Access: central - R femora EKG Rhythm: Sinus Tachycardia FI02: 50 Vent Support Breath Rate: 16 Vent Support Mode: AC Vent Tidal Volume: 450 Sputum Amount: Large PEEP: 5.0 PIP: 45 Secretions: yellow thick Fluids: D51/2NS @ 75 I&O: Intake and Output 03/03/17 03/04/17 19:00 07:00 Intake Total 2650 ml Output Total 400 ml Balance 2250 ml Intake IV Total 2650 ml Output Urine Total 400 ml # Voids 1 Subjective: Not obtainable CXR: CXR: R HD elevated, BiB atx, L base infiltrate, ETT ET-Tube: 7.5 ET Position: 25 Labs: Laboratory Tests Test 03/03/17 19:35 03/03/17 20:50 03/03/17 21:45 03/03/17 23:04 Arterial Blood pH 7.474 (7.350-7.450) Arterial Blood Partial Pressure CO2 25.9 mmHg (35.0-45.0) L Arterial Blood Partial Pressure O2 65.8 mmHg (75.0-100.0) L Arterial Blood HCO3 18.6 mmol/L (22.0-26.0) L Arterial Blood Oxygen Saturation 93.5 % (92.0-98.0) Arterial Blood Base Excess -2.6 Ulises Test Positive White Blood Count 4.6 K/UL (4.8-10.8) L 15.7 K/UL (4.8-10.8) #H 16.7 K/UL (4.8-10.8) #H Red Blood Count 1.79 M/UL (4.70-6.10) L 6.54 M/UL (4.70-6.10) H 6.49 M/UL (4.70-6.10) H Hemoglobin 4.9 G/DL (14.2-18.0) *L 17.9 G/DL (14.2-18.0) # 17.7 G/DL (14.2-18.0) # Hematocrit 17.7 % (42.0-52.0) L 63.5 % (42.0-52.0) #H 62.8 % (42.0-52.0) #H Mean Corpuscular Volume 99 FL (80-99) 97 FL (80-99) 97 FL (80-99) Mean Corpuscular Hemoglobin 27.7 PG (27.0-31.0) 27.4 PG (27.0-31.0) 27.2 PG (27.0-31.0) Mean Corpuscular Hemoglobin Concent 27.9 G/DL (32.0-36.0) L 28.2 G/DL (32.0-36.0) L 28.1 G/DL (32.0-36.0) L Red Cell Distribution Width 13.9 % (11.6-14.8) 13.6 % (11.6-14.8) 13.4 % (11.6-14.8) Platelet Count 81 K/UL (150-450) L 263 K/UL (150-450) # 258 K/UL (150-450) # Mean Platelet Volume 7.8 FL (6.5-10.1) 7.7 FL (6.5-10.1) 7.4 FL (6.5-10.1) Neutrophils (%) (Auto) % (45.0-75.0) 75.1 % (45.0-75.0) H 77.8 % (45.0-75.0) H Lymphocytes (%) (Auto) % (20.0-45.0) 15.8 % (20.0-45.0) L 14.0 % (20.0-45.0) L Monocytes (%) (Auto) % (1.0-10.0) 8.3 % (1.0-10.0) 7.5 % (1.0-10.0) Eosinophils (%) (Auto) % (0.0-3.0) 0.2 % (0.0-3.0) 0.2 % (0.0-3.0) Basophils (%) (Auto) % (0.0-2.0) 0.6 % (0.0-2.0) 0.6 % (0.0-2.0) Differential Total Cells Counted 100 Neutrophils % (Manual) 82 % (45-75) H Lymphocytes % (Manual) 14 % (20-45) L Monocytes % (Manual) 4 % (1-10) Eosinophils % (Manual) 0 % (0-3) Basophils % (Manual) 0 % (0-2) Band Neutrophils 0 % (0-8) Platelet Estimate Decreased L Platelet Morphology Normal Polychromasia 1+ Hypochromasia 2+ Anisocytosis 1+ Prothrombin Time 12.4 SEC (9.30-11.50) H Prothromb Time International Ratio 1.2 (0.9-1.1) H Activated Partial Thromboplast Time 22 SEC (23-33) L Urine Color [place] Urine Appearance Cloudy Urine pH 5 (4.5-8.0) Urine Specific [place] 1.015 (1.005-1.035) Urine Protein 2+ (NEGATIVE) H Urine Glucose (UA) Negative (NEGATIVE) Urine Ketones 1+ (NEGATIVE) H Urine Occult Blood 5+ (NEGATIVE) H Urine Nitrite Positive (NEGATIVE) H Urine Bilirubin 1+ (NEGATIVE) H Urine Ictotest Positive Urine Urobilinogen 8 MG/DL (0.0-1.0) H Urine Leukocyte Esterase 3+ (NEGATIVE) H Urine RBC Tntc /HPF (0 - 0) H Urine WBC 10-15 /HPF (0 - 0) H Urine Squamous Epithelial Cells None /LPF (NONE/OCC) Urine Bacteria Many /HPF (NONE) H Lactic Acid Level 1.50 mmol/L (0.66-2.22) Troponin I 0.024 ng/mL (0.000-0.056) Sodium Level 167 MMOL/L (136-145) *H Potassium Level 2.2 MMOL/L (3.5-5.1) *L Chloride Level 136 MMOL/L (98-107) H Carbon Dioxide Level 16 MMOL/L (21-32) L Anion Gap 15 mmol/L (5-15) Blood Urea Nitrogen 31 mg/dL (7-18) H Creatinine 1.1 MG/DL (0.55-1.30) Estimat Glomerular Filtration Rate mL/min (>60) Glucose Level 98 MG/DL (74-106) Calcium Level 5.0 MG/DL (8.5-10.1) *L Total Bilirubin 0.5 MG/DL (0.2-1.0) Aspartate Amino Transf (AST/SGOT) 38 U/L (15-37) H Alanine Aminotransferase (ALT/SGPT) 48 U/L (12-78) Alkaline Phosphatase 70 U/L (46-116) Total Creatine Kinase 180 U/L (26-140) H Creatine Kinase MB 0.0 NG/ML (0.0-3.6) Creatine Kinase MB Relative Index 0.0 Pro-B-Type Natriuretic Peptide 75 pg/mL (0-125) Total Protein 4.5 G/DL (6.4-8.2) L Albumin 1.6 G/DL (3.4-5.0) L Globulin 2.9 g/dL Albumin/Globulin Ratio 0.6 (1.0-2.7) L Test 03/04/17 00:35 03/04/17 07:38 03/04/17 09:30 03/04/17 09:50 White Blood Count 12.1 K/UL (4.8-10.8) H Pending Red Blood Count 3.84 M/UL (4.70-6.10) L Pending Hemoglobin 11.3 G/DL (14.2-18.0) #L Pending Hematocrit 37.2 % (42.0-52.0) #L Pending Mean Corpuscular Volume 97 FL (80-99) Pending Mean Corpuscular Hemoglobin 29.5 PG (27.0-31.0) Pending Mean Corpuscular Hemoglobin Concent 30.5 G/DL (32.0-36.0) L Pending Red Cell Distribution Width 13.6 % (11.6-14.8) Pending Platelet Count 141 K/UL (150-450) L Pending Mean Platelet Volume 8.7 FL (6.5-10.1) Pending Neutrophils (%) (Auto) 80.4 % (45.0-75.0) H Pending Lymphocytes (%) (Auto) 10.2 % (20.0-45.0) L Pending Monocytes (%) (Auto) 9.0 % (1.0-10.0) Pending Eosinophils (%) (Auto) 0.1 % (0.0-3.0) Pending Basophils (%) (Auto) 0.4 % (0.0-2.0) Pending Arterial Blood pH 7.462 (7.350-7.450) 7.367 (7.350-7.450) Arterial Blood Partial Pressure CO2 25.5 mmHg (35.0-45.0) L 31.9 mmHg (35.0-45.0) L Arterial Blood Partial Pressure O2 72.3 mmHg (75.0-100.0) L 138.6 mmHg (75.0-100.0) H Arterial Blood HCO3 17.8 mmol/L (22.0-26.0) L 17.9 mmol/L (22.0-26.0) L Arterial Blood Oxygen Saturation 94.9 % (92.0-98.0) 98.2 % (92.0-98.0) H Arterial Blood Base Excess -3.8 -6.1 Ulises Test Positive Positive Sodium Level Pending Potassium Level Pending Chloride Level Pending Carbon Dioxide Level Pending Blood Urea Nitrogen Pending Creatinine Pending Estimat Glomerular Filtration Rate Pending Glucose Level Pending Calcium Level Pending Total Bilirubin Pending Aspartate Amino Transf (AST/SGOT) Pending Alanine Aminotransferase (ALT/SGPT) Pending Alkaline Phosphatase Pending Troponin I Pending Total Protein Pending Albumin Pending Globulin Pending LEIDA LANDIN M.D. Mar 04, 2017 10:23
[2017-03-04] MEDS: LORazepam Inj 2mg/ml 1ml IV PRN (10:30)
--- NOTE | 2017-03-04 10:36 | Diagnostic Imaging Report ---
Indication: Shortness of breath Technique: One view of the chest Comparison: 11/02/2016 Findings: Again demonstrated is marked elevation of the right hemidiaphragm and compressive atelectatic changes of the right lung base. There is also some atelectasis at the left lung base. Slight blunting of the costophrenic sulcus could indicate a small pleural effusion. The remainder of the lungs and pleural spaces are clear. Again demonstrated is evidence of hepatic colonic interposition, with prominent gas-filled colon Impression: Bilateral basilar atelectasis, right greater than left Possible small left pleural effusion Significant elevation of the right hemidiaphragm, also previously described
[2017-03-04] MEDS ORDERED: Potassium Chloride 40 MEQ in Sodium Chloride 500ML 550 ML IVPB ONE (11:00)
[2017-03-04 11:11] LABS: ALANINE AMINOTRANSFERASE 73 U/L (12-78); ALBUMIN 2.8 G/DL (3.4-5.0); ALBUMIN/GLOBULIN RATIO 0.5 (1.0-2.7); ALKALINE PHOSPHATASE 117 U/L (46-116); ANION GAP 14 mmol/L (5-15); ASPARTATE AMINO TRANSFERASE 57 U/L (15-37); BILIRUBIN,TOTAL 1.6 MG/DL (0.2-1.0); BLOOD UREA NITROGEN 52 mg/dL (7-18); CALCIUM 9.3 MG/DL (8.5-10.1); CARBON DIOXIDE 19 MMOL/L (21-32); CHLORIDE 139 MMOL/L (98-107); CREATININE 2.4 MG/DL (0.55-1.30); POTASSIUM 4.3 MMOL/L (3.5-5.1)
[2017-03-04 11:18] LABS: SODIUM 172 MMOL/L (136-145)
[2017-03-04 11:20] LABS: BILIRUBIN,DIRECT 0.8 MG/DL (0.0-0.3)
--- NOTE | 2017-03-04 12:56 | Diagnostic Imaging Report ---
Indication: Status post orogastric tube placement Technique: Supine view of the abdomen Comparison: none Findings: There is an orogastric tube in place, tip of which projects at the level of the gastric antrum. There is eventration of the right hemidiaphragm versus diaphragmatic hernia, with evidence of colonic interposition. Colon loops are diffusely gas filled, low signal and caliber. Impression: Satisfactory orogastric tube placement Other findings as noted
[2017-03-04] MEDS: Albuterol/Ipratropium 3ml neb HHN SCH ×2 (13:02→19:00)
[2017-03-04] MEDS: Midazolam 2mg/2ml Inj IVP PRN (13:33)
[2017-03-04] MEDS ORDERED: Piperacillin/Tazobactam 3.375 GM in D5W 110 ML IVPB SCH (14:00)
[2017-03-04] MEDS ORDERED: Piperacillin/Tazobactam 3.375 GM in D5W 55 ML IVPB SCH (14:00)
--- NOTE | 2017-03-04 14:36 | Consultation ---
Consult Note Consult Note 71-year-old male presents ED for evaluation. Per EMS patient noted to be [facility] the [facility]. Patient is nonverbal at baseline and unable to provide any initial history. Patient is febrile. No other aggravating or leading factors. Denies any other associated symptoms Past Medical History: HTN, GI bleed, dementia, psych hx Hx Hypertension: Yes Hx COPD: Yes Hx Gastrointestinal Problems: Yes - GI hemorrhage, esophagitis, GERD History Of Psychiatric Problem: Yes - Alzheimers, Dementia, paranoid schizophrenia examined data reviewed discussed with sales agent business services/Plan - Acute renal failure cr 1.1 to 2.4 - Chronic paranoid schizophrenia - Respiratory disorder with ventilator dependence - Healthcare associated bacterial pneumonia - UTI (urinary tract infection) - SIRS (systemic inflammatory response syndrome) - Alzheimer disease - Hypokalemia - Hypernatremia / due to water deficit D5W Pulm support antibiotics monitor renal parameters per orders CHACHA NUNES Mar 04, 2017 14:36
[2017-03-04 15:47] LABS: HEMATOCRIT 51.1 % (42.0-52.0); MEAN CORPUSCULAR VOLUME 96 FL (80-99); PLATELET COUNT 156 K/UL (150-450); RED BLOOD COUNT 5.31 M/UL (4.70-6.10); RED CELL DISTRIBUTION WIDTH 13.6 % (11.6-14.8); WHITE BLOOD COUNT 20.4 K/UL (4.8-10.8)
[2017-03-04 15:51] LABS: NEUTROPHILS % (AUTO) 81.2 % (45.0-75.0)
[2017-03-04 15:52] LABS: BASOPHILS % (AUTO) 0.5 % (0.0-2.0); MONOCYTES % (AUTO) 5.4 % (1.0-10.0)
[2017-03-04 16:19] LABS: ALANINE AMINOTRANSFERASE 60 U/L (12-78); ALBUMIN 2.5 G/DL (3.4-5.0); ALBUMIN/GLOBULIN RATIO 0.6 (1.0-2.7); ALKALINE PHOSPHATASE 104 U/L (46-116); ANION GAP 11 mmol/L (5-15); ASPARTATE AMINO TRANSFERASE 50 U/L (15-37); BILIRUBIN,TOTAL 1.4 MG/DL (0.2-1.0); BLOOD UREA NITROGEN 47 mg/dL (7-18); CALCIUM 8.8 MG/DL (8.5-10.1); CARBON DIOXIDE 20 MMOL/L (21-32); CHLORIDE 138 MMOL/L (98-107); CREATININE 2.2 MG/DL (0.55-1.30); POTASSIUM 4.5 MMOL/L (3.5-5.1)
[2017-03-04 16:26] LABS: SODIUM 170 MMOL/L (136-145)
[2017-03-04 16:27] LABS: BILIRUBIN,DIRECT 0.9 MG/DL (0.0-0.3)
[2017-03-04] MEDS: Pantoprazole Inj IVP SCH (20:30)
[2017-03-04] MEDS: Piperacillin/Tazobactam 3.375 GM in D5W 55 ML IVPB SCH (20:31)
[2017-03-04] MEDS: Heparin 5000 units/ml inj SUBQ SCH (20:32)
--- NOTE | 2017-03-04 21:00 | History and Physical Report ---
DATE OF ADMISSION: 03/03/2017 SOURCE OF INFORMATION: The patient and EMR. HISTORY OF PRESENT ILLNESS: The patient is a 71-year-old male who presented to the emergency room with a complaint of shortness of breath. The [facility]. At baseline, the patient is not verbal. Therefore, there is significantly limited source of information. Initial evaluation in the emergency room showed the patient with the temperature of 101 and the pulse rate of 122. The patient initially received hydration in the emergency room and was transferred to the ICU. PAST MEDICAL HISTORY: History of hypertension, COPD, GI bleeding, GERD, Alzheimer's dementia, the patient is not verbal at baseline. MEDICATIONS: Current hospital medications, normal saline. SOCIAL HISTORY: No reported history of illicit drug abuse, smoking, or alcohol abuse. FAMILY HISTORY: Reviewed, noncontributory. REVIEW OF SYSTEMS: Unobtainable. PHYSICAL EXAMINATION: VITAL SIGNS: Blood pressure 120/70, temperature 101.7, pulse rate 122, respiratory rate 40, pulse oximetry 100% on nonrebreather mask. HEAD AND NECK: Atraumatic and normocephalic. CHEST: Diffuse bronchial breathing sounds. RESPIRATORY: The patient is in respiratory distress. HEART: S1 and S2. Tachycardic. MUSCULOSKELETAL: Limited examination as the patient is not following the commands. NEUROLOGY: The patient is lethargic, not verbally communicative. LABORATORY AND DIAGNOSTIC DATA: Imaging, official report pending. Labs dated 03/03/2017 shows WBC 4.6, hemoglobin 4.9, and platelets 81,000. Labs dated 03/03/2017 shows sodium of 167, potassium 3.2, BUN 31, and creatinine 1.1. Lactic acid of 1.5. Albumin of 1.6. Urine shows 5+ occult blood, 3+ leukocyte esterase, and 10-50 WBC. ASSESSMENT: 1. Sepsis. 2. Healthcare-associated pneumonia. 3. Acute hypoxemic respiratory failure. 4. Acute anemia. 5. Hypokalemia. 6. Hypernatremia. 7. Urinary tract infection-healthcare related. 8. Gastrointestinal and deep vein thrombosis prophylaxis. PLAN OF CARE: I will start the patient on D5 normal saline. Keep the patient NPO. Discussed the care with the ICU nurse at [address] Uriarte, the Pulmonary notified. Nephrology, Cardiology, and Infectious Diseases specialist consulted. Colton Charles M.D. DR: ASHLEY JOB#: [id number] CC:
--- NOTE | 2017-03-04 22:13 | Consultation ---
Consult Note Consult Note [id number] NATALY STEPHENSON M.D. Mar 04, 2017 22:13
[2017-03-05] VITALS (30 sets, daily range): BP systolic 88–142; BP diastolic 58–82
[2017-03-05] MEDS: Albuterol/Ipratropium 3ml neb HHN SCH ×4 (01:15→19:26)
--- NOTE | 2017-03-05 05:16 | Consultation ---
DATE OF CONSULTATION: 03/04/2017 INFECTIOUS DISEASES CONSULTATION CONSULTING PHYSICIAN: Fitz Cannon M.D. REFERRING PHYSICIAN: Colton Charles M.D. REASON FOR CONSULTATION: Evaluation of the patient for sepsis and fever, antibiotic management. HISTORY OF PRESENT ILLNESS: The patient is a 71-year-old male with multiple medical problems, who was admitted to this medical center from senior living due to respiratory distress and shortness of breath. The patient had to be intubated and has been placed in the ICU. The patient was found to have fever, acute renal failure, and increase of white blood cells. Infectious Disease consultation has been requested for further evaluation of the patient's antibiotic management. PAST MEDICAL HISTORY: 1. Dysphagia. 2. Osteoarthritis. 3. Hypertension. 4. COPD. 5. History of GERD. 6. History of H. pylori in the past. 7. Dementia with psychosis. MEDICATIONS: Vancomycin and Zosyn. ALLERGIES: No known drug allergies. SOCIAL HISTORY: The patient lives in a senior living. FAMILY HISTORY: Unavailable. REVIEW OF SYSTEMS: Unobtainable. LABORATORY AND DIAGNOSTIC DATA: White blood cells 20, hemoglobin 15, and platelets 156. UA, too numerous to count red blood cells and 10-5 white blood cells. BUN 42 and creatinine 2.2. AST 50, ALT 60, and alkaline phosphatase 104. Cardiac enzyme, 0.186. Rapid influenza test negative. Blood culture and urine culture is pending. ASSESSMENT: The patient is a 71-year-old male with: 1. Sepsis. 2. Leukocytosis. 3. Fever. 4. Probable underlying pneumonia. 5. May need to rule out intra-abdominal sepsis if the patient's white blood cell does not improve. 6. Positive cardiac enzymes. 7. Acute renal failure. 8. Influenza negative. 9. Possible urinary tract infection. PLAN: 1. We will continue the patient on vancomycin and Zosyn. 2. Monitor CBC. 3. Monitor BMP. 4. Monitor cultures (blood, urine, and sputum). 5. Monitor chest x-ray. 6. Monitor renal function. 7. Based on the patient's clinical course and laboratories, we will do further recommendation. Thank you, Dr. Charles, for allowing me to participate in the care of this patient. I will follow the patient with you during this hospitalization. Fitz Cannon M.D. DR: TORRI JOB#: [id number] CC:
[2017-03-05 05:51] LABS: HEMATOCRIT 48.1 % (42.0-52.0); HEMOGLOBIN 14.7 G/DL (14.2-18.0); MEAN CORPUSCULAR VOLUME 96 FL (80-99); PLATELET COUNT 135 K/UL (150-450); RED BLOOD COUNT 5.02 M/UL (4.70-6.10); RED CELL DISTRIBUTION WIDTH 13.6 % (11.6-14.8); WHITE BLOOD COUNT 20.5 K/UL (4.8-10.8)
[2017-03-05 05:55] LABS: ALANINE AMINOTRANSFERASE 46 U/L (12-78); ALBUMIN 2.3 G/DL (3.4-5.0); ALBUMIN/GLOBULIN RATIO 0.5 (1.0-2.7); ALKALINE PHOSPHATASE 90 U/L (46-116); ANION GAP 10 mmol/L (5-15); ASPARTATE AMINO TRANSFERASE 48 U/L (15-37); BILIRUBIN,TOTAL 1.7 MG/DL (0.2-1.0); BLOOD UREA NITROGEN 41 mg/dL (7-18); CALCIUM 7.6 MG/DL (8.5-10.1); CARBON DIOXIDE 21 MMOL/L (21-32); CHLORIDE 131 MMOL/L (98-107); CREATININE 2.1 MG/DL (0.55-1.30); POTASSIUM 3.7 MMOL/L (3.5-5.1)
[2017-03-05 06:18] LABS: CREATINE KINASE 1773 U/L (26-308); GAMMA GLUTAMYL TRANSPEPTIDASE 119 U/L (5-85); PHOSPHORUS 2.3 MG/DL (2.5-4.9)
[2017-03-05 06:34] LABS: SODIUM 161 MMOL/L (136-145)
[2017-03-05 07:03] LABS: BILIRUBIN,DIRECT 0.9 MG/DL (0.0-0.3)
[2017-03-05] MEDS: Piperacillin/Tazobactam 3.375 GM in D5W 55 ML IVPB SCH ×2 (08:54→20:43)
[2017-03-05] MEDS: Vancomycin 1gm/D5W 275ml IVPB SCH ×2 (08:55)
[2017-03-05] MEDS: Pantoprazole Inj IVP SCH ×2 (08:55→20:43)
[2017-03-05] MEDS: Heparin 5000 units/ml inj SUBQ SCH ×2 (08:56→20:44)
[2017-03-05] MEDS ORDERED: Potassium Phosphate 20 MM in NS 275 ML IV ONE (09:00)
--- NOTE | 2017-03-05 09:42 | General Progress Note ---
Assessment/Plan Status: unchanged Assessment/Plan 1. VDRF 2. Sepsis. 2. Healthcare-associated pneumonia (?) 3. Acute hypoxemic respiratory failure. 4. Acute anemia. 5. Hypokalemia. 6. Hypernatremia. 7. Urinary tract infection-healthcare related. 8. Gastrointestinal and deep vein thrombosis prophylaxis. 9. Abnormal Troponin PLAN: CURRENT MANAGEMENT Dr Mason, cardiology consulted Subjective ROS Limited/Unobtainable: Yes - intubated and not verbal Allergies: Coded Allergies: No Known Allergies (Unverified , 10/20/16) Objective Last 24 Hour Vital Signs Date Time Temp Pulse Resp B/P (MAP) Pulse Ox O2 Delivery O2 Flow Rate FiO2 03/05/17 07:52 115 28 98 Mechanical Ventilator 50 03/05/17 07:51 115 26 50 03/05/17 07:00 100.0 115 26 101/59 100 Mechanical Ventilator 50 03/05/17 06:00 26 03/05/17 06:00 115 26 88/63 100 Mechanical Ventilator 50 03/05/17 05:30 115 26 50 03/05/17 05:30 115 26 93/72 100 Mechanical Ventilator 50 03/05/17 05:00 26 03/05/17 05:00 116 26 89/61 100 Mechanical Ventilator 50 03/05/17 04:30 116 25 108/79 100 Mechanical Ventilator 50 03/05/17 04:00 50 03/05/17 04:00 112 03/05/17 04:00 24 03/05/17 04:00 112 03/05/17 04:00 99.0 112 26 105/79 100 Mechanical Ventilator 50 03/05/17 03:30 112 26 95/69 100 Mechanical Ventilator 50 03/05/17 03:30 113 26 50 03/05/17 03:00 25 03/05/17 03:00 112 25 89/66 100 Mechanical Ventilator 50 03/05/17 02:30 112 24 89/66 100 Mechanical Ventilator 50 03/05/17 02:00 112 25 92/65 100 Mechanical Ventilator 50 03/05/17 02:00 25 03/05/17 01:30 112 25 92/66 100 Mechanical Ventilator 50 03/05/17 01:18 116 24 100 Mechanical Ventilator 03/05/17 01:18 113 20 100 Mechanical Ventilator 50 03/05/17 01:16 113 20 50 03/05/17 01:00 113 25 93/65 100 Mechanical Ventilator 50 03/05/17 01:00 25 03/05/17 00:30 113 26 90/68 100 Mechanical Ventilator 50 03/05/17 00:00 99.2 113 25 92/65 100 Mechanical Ventilator 50 03/05/17 00:00 27 03/05/17 00:00 113 03/04/17 23:30 113 27 93/67 100 Mechanical Ventilator 50 03/04/17 23:20 114 28 50 03/04/17 23:00 115 29 89/70 100 Mechanical Ventilator 50 03/04/17 22:30 116 32 94/69 100 Mechanical Ventilator 50 03/04/17 22:10 99.0 03/04/17 22:00 33 03/04/17 22:00 116 33 97/66 100 Mechanical Ventilator 50 03/04/17 21:32 31 03/04/17 21:30 117 31 94/69 100 Mechanical Ventilator 50 03/04/17 21:30 118 31 50 03/04/17 21:00 117 27 92/67 100 Mechanical Ventilator 50 03/04/17 21:00 27 03/04/17 20:30 116 25 93/63 100 Mechanical Ventilator 50 03/04/17 20:05 120 26 Mechanical Ventilator 50 03/04/17 20:00 117 03/04/17 20:00 99.0 117 25 94/72 100 Mechanical Ventilator 50 03/04/17 20:00 50 03/04/17 20:00 25 03/04/17 19:30 120 26 Mechanical Ventilator 50 03/04/17 19:30 122 26 100 Mechanical Ventilator 50 03/04/17 19:30 117 23 97/67 100 Mechanical Ventilator 50 03/04/17 19:30 122 31 50 03/04/17 19:30 122 Mechanical Ventilator 03/04/17 19:20 99.0 03/04/17 19:00 119 25 97/74 100 Mechanical Ventilator 50 03/04/17 19:00 25 03/04/17 18:30 121 26 93/77 100 Mechanical Ventilator 50 03/04/17 18:00 120 30 95/71 100 Mechanical Ventilator 50 03/04/17 17:30 121 27 95/71 100 Mechanical Ventilator 50 03/04/17 17:09 121 30 50 03/04/17 17:00 122 28 112/80 98 Mechanical Ventilator 50 03/04/17 17:00 28 03/04/17 16:30 120 27 94/65 97 Mechanical Ventilator 50 03/04/17 16:00 121 03/04/17 16:00 50 03/04/17 16:00 30 03/04/17 16:00 100.0 121 30 92/66 96 Mechanical Ventilator 50 03/04/17 15:30 122 31 98/64 97 Mechanical Ventilator 50 03/04/17 15:00 33 03/04/17 15:00 122 36 90/63 97 Mechanical Ventilator 50 03/04/17 14:55 123 29 50 03/04/17 14:30 123 34 89/61 95 Mechanical Ventilator 50 03/04/17 14:00 125 37 98/77 95 Mechanical Ventilator 50 03/04/17 13:53 37 03/04/17 13:30 124 38 102/68 95 Mechanical Ventilator 50 03/04/17 13:09 125 37 95 Non-Rebreather 03/04/17 13:08 41 03/04/17 13:02 122 42 98 Mechanical Ventilator 50 03/04/17 13:00 125 45 118/52 96 Mechanical Ventilator 50 03/04/17 12:53 125 42 50 03/04/17 12:00 50 03/04/17 12:00 99.8 124 45 106/72 96 Mechanical Ventilator 50 03/04/17 12:00 122 03/04/17 11:26 127 41 50 03/04/17 11:00 128 36 92/65 95 Mechanical Ventilator 50 03/04/17 10:15 127 45 50 03/04/17 10:09 50 03/04/17 10:00 127 38 93/69 97 Mechanical Ventilator 50 Intake and Output 03/04/17 03/05/17 19:00 07:00 Intake Total 1664.0 ml 1943.50 ml Output Total 435 ml 760 ml Balance 1229.0 ml 1183.50 ml Intake Oral 0 ml IV Total 1664.0 ml 1943.50 ml Output Urine Total 435 ml 760 ml # Voids 1 # Bowel Movements 1 Laboratory Tests 03/04/17 09:50: White Blood Count 20.4#H, Red Blood Count 5.96, Hemoglobin 16.8#, Hematocrit 58.0#H, Mean Corpuscular Volume 97, Mean Corpuscular Hemoglobin 28.2, Mean Corpuscular Hemoglobin Concent 29.0L, Red Cell Distribution Width 13.7, Platelet Count 191, Mean Platelet Volume 9.0, Neutrophils (%) (Auto) , Lymphocytes (%) (Auto) , Monocytes (%) (Auto) , Eosinophils (%) (Auto) , Basophils (%) (Auto) , Differential Total Cells Counted 100, Neutrophils % ( Manual) 75, Lymphocytes % (Manual) 9L, Monocytes % (Manual) 9, Eosinophils % ( Manual) 0, Basophils % (Manual) 0, Band Neutrophils 7, Platelet Estimate Adequate, Platelet Morphology Normal, Red Blood Cell Morphology Normal, Sodium Level 172*H, Potassium Level 4.3#, Chloride Level 139H, Carbon Dioxide Level 19L , Anion Gap 14, Blood Urea Nitrogen 52H, Creatinine 2.4#H, Estimat Glomerular Filtration Rate 32.7, Glucose Level 159H, Calcium Level 9.3#, Total Bilirubin 1.6H, Direct Bilirubin 0.8H, Aspartate Amino Transf (AST/SGOT) 57H, Alanine Aminotransferase (ALT/SGPT) 73, Alkaline Phosphatase 117H, Troponin I 0.089H, Total Protein 8.3#H, Albumin 2.8L, Globulin 5.5, Albumin/Globulin Ratio 0.5L 03/04/17 15:00: White Blood Count 20.4H, Red Blood Count 5.31, Hemoglobin 15.0, Hematocrit 51.1 , Mean Corpuscular Volume 96, Mean Corpuscular Hemoglobin 28.3, Mean Corpuscular Hemoglobin Concent 29.4L, Red Cell Distribution Width 13.6, Platelet Count 156, Mean Platelet Volume 7.8, Neutrophils (%) (Auto) 81.2H, Lymphocytes (%) (Auto) 13.0L, Monocytes (%) (Auto) 5.4, Eosinophils (%) (Auto) 0.0, Basophils (%) (Auto) 0.5, Sodium Level 170*H, Potassium Level 4.5, Chloride Level 138H, Carbon Dioxide Level 20L, Anion Gap 11, Blood Urea Nitrogen 47H, Creatinine 2.2H, Estimat Glomerular Filtration Rate 36.1, Glucose Level 198H, Calcium Level 8.8, Total Bilirubin 1.4H, Direct Bilirubin 0.9H, Aspartate Amino Transf (AST/SGOT) 50H, Alanine Aminotransferase (ALT/SGPT) 60, Alkaline Phosphatase 104, Total Protein 7.0, Albumin 2.5L, Globulin 4.5, Albumin /Globulin Ratio 0.6L 03/04/17 17:30: Troponin I 0.186H 03/05/17 04:30: White Blood Count 20.5H, Red Blood Count 5.02, Hemoglobin 14.7, Hematocrit 48.1 , Mean Corpuscular Volume 96, Mean Corpuscular Hemoglobin 29.3, Mean Corpuscular Hemoglobin Concent 30.6L, Red Cell Distribution Width 13.6, Platelet Count 135L, Mean Platelet Volume 9.3, Neutrophils (%) (Auto) , Lymphocytes (%) (Auto) , Monocytes (%) (Auto) , Eosinophils (%) (Auto) , Basophils (%) (Auto) , Differential Total Cells Counted 100, Neutrophils % ( Manual) 73, Lymphocytes % (Manual) 12L, Monocytes % (Manual) 9, Eosinophils % ( Manual) 1, Basophils % (Manual) 0, Band Neutrophils 5, Platelet Estimate DecreasedL, Platelet Morphology Normal, Red Blood Cell Morphology Normal, Sodium Level 161*H, Potassium Level 3.7, Chloride Level 131H, Carbon Dioxide Level 21, Anion Gap 10, Blood Urea Nitrogen 41H, Creatinine 2.1H, Estimat Glomerular Filtration Rate 38.2, Glucose Level 136H, Calcium Level 7.6L, Total Bilirubin 1.7H, Direct Bilirubin 0.9H, Aspartate Amino Transf (AST/SGOT) 48H, Alanine Aminotransferase (ALT/SGPT) 46, Alkaline Phosphatase 90, Troponin I 0.244H, Total Protein 6.9, Albumin 2.3L, Globulin 4.6, Albumin/Globulin Ratio 0.5L, Hemoglobin A1c 6.8H, Uric Acid 9.0H, Phosphorus Level 2.3L, Magnesium Level 2.3, Gamma Glutamyl Transpeptidase 119H, Total Creatine Kinase 1773H, C- Reactive Protein, Quantitative 19.1H, Pro-B-Type Natriuretic Peptide 416H, Thyroid Stimulating Hormone (TSH) 1.610 Height (Feet): 5 Height (Inches): 9.00 Weight (Pounds): 130 General Appearance: other - Intubated, limited eval as patient is not following commands EENT: PERRL/EOMI Neck: supple Cardiovascular: tachycardia Respiratory/Chest: rhonchi - bilaterally Abdomen: soft Extremities: other - cachectic appearance Neurologic: other - limited eval as patient is not following commands Colton Charles MD Mar 05, 2017 09:42
--- NOTE | 2017-03-05 09:48 | Pulmonolgy Critical Care Note ---
Critical Care - Asmt/Plan Problems: (1) Chronic paranoid schizophrenia (2) [facility] resident (3) Respiratory disorder with ventilator dependence (4) Healthcare associated bacterial pneumonia (5) UTI (urinary tract infection) (6) SIRS (systemic inflammatory response syndrome) (7) Alzheimer disease (8) Hypokalemia (9) Hypernatremia Assessment/Plan: -Continue ventilatory support --> A/C 16, TV 450, PEEP 5, FiO2 50 -Titrate down FiO2 to keep SaO2 > 90% -F/U repeat ABG -Optimize pulmonary hygiene/mobilize as tolerated -RTC and PRN HHN's -Frequent inline suctioning -Monitor volumes -Continue D5W per renal -Monitor electrolytes and adjust accordingly -Abx per ID, F/U Cx's -Monitor MS, PRN sedation only -Hep SQ -PPI -Would start enteral feeds if ok with GI -FC, continue to address GOC CC (60) Critical Care - Objective Last 24 Hour Vital Signs Date Time Temp Pulse Resp B/P (MAP) Pulse Ox O2 Delivery O2 Flow Rate FiO2 03/05/17 07:52 115 28 98 Mechanical Ventilator 50 03/05/17 07:51 115 26 50 03/05/17 07:00 100.0 115 26 101/59 100 Mechanical Ventilator 50 03/05/17 06:00 26 03/05/17 06:00 115 26 88/63 100 Mechanical Ventilator 50 03/05/17 05:30 115 26 50 03/05/17 05:30 115 26 93/72 100 Mechanical Ventilator 50 03/05/17 05:00 26 03/05/17 05:00 116 26 89/61 100 Mechanical Ventilator 50 03/05/17 04:30 116 25 108/79 100 Mechanical Ventilator 50 03/05/17 04:00 50 03/05/17 04:00 112 03/05/17 04:00 24 03/05/17 04:00 112 03/05/17 04:00 99.0 112 26 105/79 100 Mechanical Ventilator 50 03/05/17 03:30 112 26 95/69 100 Mechanical Ventilator 50 03/05/17 03:30 113 26 50 03/05/17 03:00 25 03/05/17 03:00 112 25 89/66 100 Mechanical Ventilator 50 03/05/17 02:30 112 24 89/66 100 Mechanical Ventilator 50 03/05/17 02:00 112 25 92/65 100 Mechanical Ventilator 50 03/05/17 02:00 25 03/05/17 01:30 112 25 92/66 100 Mechanical Ventilator 50 03/05/17 01:18 116 24 100 Mechanical Ventilator 03/05/17 01:18 113 20 100 Mechanical Ventilator 50 03/05/17 01:16 113 20 50 03/05/17 01:00 113 25 93/65 100 Mechanical Ventilator 50 03/05/17 01:00 25 03/05/17 00:30 113 26 90/68 100 Mechanical Ventilator 50 03/05/17 00:00 99.2 113 25 92/65 100 Mechanical Ventilator 50 03/05/17 00:00 27 03/05/17 00:00 113 03/04/17 23:30 113 27 93/67 100 Mechanical Ventilator 50 03/04/17 23:20 114 28 50 03/04/17 23:00 115 29 89/70 100 Mechanical Ventilator 50 03/04/17 22:30 116 32 94/69 100 Mechanical Ventilator 50 03/04/17 22:10 99.0 03/04/17 22:00 33 03/04/17 22:00 116 33 97/66 100 Mechanical Ventilator 50 03/04/17 21:32 31 03/04/17 21:30 117 31 94/69 100 Mechanical Ventilator 50 03/04/17 21:30 118 31 50 03/04/17 21:00 117 27 92/67 100 Mechanical Ventilator 50 03/04/17 21:00 27 03/04/17 20:30 116 25 93/63 100 Mechanical Ventilator 50 03/04/17 20:05 120 26 Mechanical Ventilator 50 03/04/17 20:00 117 03/04/17 20:00 99.0 117 25 94/72 100 Mechanical Ventilator 50 03/04/17 20:00 50 03/04/17 20:00 25 03/04/17 19:30 120 26 Mechanical Ventilator 50 03/04/17 19:30 122 26 100 Mechanical Ventilator 50 03/04/17 19:30 117 23 97/67 100 Mechanical Ventilator 50 03/04/17 19:30 122 31 50 03/04/17 19:30 122 Mechanical Ventilator 03/04/17 19:20 99.0 03/04/17 19:00 119 25 97/74 100 Mechanical Ventilator 50 03/04/17 19:00 25 03/04/17 18:30 121 26 93/77 100 Mechanical Ventilator 50 03/04/17 18:00 120 30 95/71 100 Mechanical Ventilator 50 03/04/17 17:30 121 27 95/71 100 Mechanical Ventilator 50 03/04/17 17:09 121 30 50 03/04/17 17:00 122 28 112/80 98 Mechanical Ventilator 50 03/04/17 17:00 28 03/04/17 16:30 120 27 94/65 97 Mechanical Ventilator 50 03/04/17 16:00 121 03/04/17 16:00 50 03/04/17 16:00 30 03/04/17 16:00 100.0 121 30 92/66 96 Mechanical Ventilator 50 03/04/17 15:30 122 31 98/64 97 Mechanical Ventilator 50 03/04/17 15:00 33 03/04/17 15:00 122 36 90/63 97 Mechanical Ventilator 50 03/04/17 14:55 123 29 50 03/04/17 14:30 123 34 89/61 95 Mechanical Ventilator 50 03/04/17 14:00 125 37 98/77 95 Mechanical Ventilator 50 03/04/17 13:53 37 03/04/17 13:30 124 38 102/68 95 Mechanical Ventilator 50 03/04/17 13:09 125 37 95 Non-Rebreather 03/04/17 13:08 41 03/04/17 13:02 122 42 98 Mechanical Ventilator 50 03/04/17 13:00 125 45 118/52 96 Mechanical Ventilator 50 03/04/17 12:53 125 42 50 03/04/17 12:00 50 03/04/17 12:00 99.8 124 45 106/72 96 Mechanical Ventilator 50 03/04/17 12:00 122 03/04/17 11:26 127 41 50 03/04/17 11:00 128 36 92/65 95 Mechanical Ventilator 50 03/04/17 10:15 127 45 50 03/04/17 10:09 50 03/04/17 10:00 127 38 93/69 97 Mechanical Ventilator 50 Status: sedated Condition: critical HEENT: atraumatic, normocephalic Lungs: rhonchi - scattered Heart: HR/BP stable Abdomen: soft, non-tender, active bowel sounds Extremities: no C/C/E, other - contracted Decubiti: location - sacral, stage - 4 Micro: Microbiology Date/Time Source Procedure Growth Status 03/03/17 20:50 Blood Blood Culture - Preliminary NO GROWTH AFTER 24 HOURS Resulted 03/03/17 20:45 Blood Blood Culture - Preliminary NO GROWTH AFTER 24 HOURS Resulted 03/03/17 20:50 Nasal Nares Influenza Types A,B Antigen (GENEVIEVE) - Final Complete Critical Care - Subjective Interval Events: 3.6/1.1, Tm 100, ST to 120's, BP stable, FiO2 40, stable on vent Na 161, trop inc, CK 1773 Sedated but arouseable Condition: critical EKG Rhythm: Sinus Rhythm FI02: 50 Vent Support Breath Rate: 16 Vent Support Mode: AC Vent Tidal Volume: 450 Sputum Amount: Moderate PEEP: 5.0 PIP: 17 Secretions: moderate thick dubose Fluids: D5W I&O: Intake and Output 03/04/17 03/05/17 19:00 07:00 Intake Total 1664.0 ml 1943.50 ml Output Total 435 ml 760 ml Balance 1229.0 ml 1183.50 ml Intake Oral 0 ml IV Total 1664.0 ml 1943.50 ml Output Urine Total 435 ml 760 ml # Voids 1 # Bowel Movements 1 Subjective: Not obtainable ET-Tube: 7.5 ET Position: 25 Labs: Laboratory Tests Test 03/04/17 09:50 03/04/17 15:00 03/04/17 17:30 03/05/17 04:30 White Blood Count 20.4 K/UL (4.8-10.8) #H 20.4 K/UL (4.8-10.8) H 20.5 K/UL (4.8-10.8) H Red Blood Count 5.96 M/UL (4.70-6.10) 5.31 M/UL (4.70-6.10) 5.02 M/UL (4.70-6.10) Hemoglobin 16.8 G/DL (14.2-18.0) # 15.0 G/DL (14.2-18.0) 14.7 G/DL (14.2-18.0) Hematocrit 58.0 % (42.0-52.0) #H 51.1 % (42.0-52.0) 48.1 % (42.0-52.0) Mean Corpuscular Volume 97 FL (80-99) 96 FL (80-99) 96 FL (80-99) Mean Corpuscular Hemoglobin 28.2 PG (27.0-31.0) 28.3 PG (27.0-31.0) 29.3 PG (27.0-31.0) Mean Corpuscular Hemoglobin Concent 29.0 G/DL (32.0-36.0) L 29.4 G/DL (32.0-36.0) L 30.6 G/DL (32.0-36.0) L Red Cell Distribution Width 13.7 % (11.6-14.8) 13.6 % (11.6-14.8) 13.6 % (11.6-14.8) Platelet Count 191 K/UL (150-450) 156 K/UL (150-450) 135 K/UL (150-450) L Mean Platelet Volume 9.0 FL (6.5-10.1) 7.8 FL (6.5-10.1) 9.3 FL (6.5-10.1) Neutrophils (%) (Auto) % (45.0-75.0) 81.2 % (45.0-75.0) H % (45.0-75.0) Lymphocytes (%) (Auto) % (20.0-45.0) 13.0 % (20.0-45.0) L % (20.0-45.0) Monocytes (%) (Auto) % (1.0-10.0) 5.4 % (1.0-10.0) % (1.0-10.0) Eosinophils (%) (Auto) % (0.0-3.0) 0.0 % (0.0-3.0) % (0.0-3.0) Basophils (%) (Auto) % (0.0-2.0) 0.5 % (0.0-2.0) % (0.0-2.0) Differential Total Cells Counted 100 100 Neutrophils % (Manual) 75 % (45-75) 73 % (45-75) Lymphocytes % (Manual) 9 % (20-45) L 12 % (20-45) L Monocytes % (Manual) 9 % (1-10) 9 % (1-10) Eosinophils % (Manual) 0 % (0-3) 1 % (0-3) Basophils % (Manual) 0 % (0-2) 0 % (0-2) Band Neutrophils 7 % (0-8) 5 % (0-8) Platelet Estimate Adequate Decreased L Platelet Morphology Normal Normal Red Blood Cell Morphology Normal Normal Sodium Level 172 MMOL/L (136-145) *H 170 MMOL/L (136-145) *H 161 MMOL/L (136-145) *H Potassium Level 4.3 MMOL/L (3.5-5.1) # 4.5 MMOL/L (3.5-5.1) 3.7 MMOL/L (3.5-5.1) Chloride Level 139 MMOL/L (98-107) H 138 MMOL/L (98-107) H 131 MMOL/L (98-107) H Carbon Dioxide Level 19 MMOL/L (21-32) L 20 MMOL/L (21-32) L 21 MMOL/L (21-32) Anion Gap 14 mmol/L (5-15) 11 mmol/L (5-15) 10 mmol/L (5-15) Blood Urea Nitrogen 52 mg/dL (7-18) H 47 mg/dL (7-18) H 41 mg/dL (7-18) H Creatinine 2.4 MG/DL (0.55-1.30) #H 2.2 MG/DL (0.55-1.30) H 2.1 MG/DL (0.55-1.30) H Estimat Glomerular Filtration Rate 32.7 mL/min (>60) 36.1 mL/min (>60) 38.2 mL/min (>60) Glucose Level 159 MG/DL (74-106) H 198 MG/DL (74-106) H 136 MG/DL (74-106) H Calcium Level 9.3 MG/DL (8.5-10.1) # 8.8 MG/DL (8.5-10.1) 7.6 MG/DL (8.5-10.1) L Total Bilirubin 1.6 MG/DL (0.2-1.0) H 1.4 MG/DL (0.2-1.0) H 1.7 MG/DL (0.2-1.0) H Direct Bilirubin 0.8 MG/DL (0.0-0.3) H 0.9 MG/DL (0.0-0.3) H 0.9 MG/DL (0.0-0.3) H Aspartate Amino Transf (AST/SGOT) 57 U/L (15-37) H 50 U/L (15-37) H 48 U/L (15-37) H Alanine Aminotransferase (ALT/SGPT) 73 U/L (12-78) 60 U/L (12-78) 46 U/L (12-78) Alkaline Phosphatase 117 U/L (46-116) H 104 U/L (46-116) 90 U/L (46-116) Troponin I 0.089 ng/mL (0.000-0.056) 0.186 ng/mL (0.000-0.056) 0.244 ng/mL (0.000-0.056) Total Protein 8.3 G/DL (6.4-8.2) #H 7.0 G/DL (6.4-8.2) 6.9 G/DL (6.4-8.2) Albumin 2.8 G/DL (3.4-5.0) L 2.5 G/DL (3.4-5.0) L 2.3 G/DL (3.4-5.0) L Globulin 5.5 g/dL 4.5 g/dL 4.6 g/dL Albumin/Globulin Ratio 0.5 (1.0-2.7) L 0.6 (1.0-2.7) L 0.5 (1.0-2.7) L Hemoglobin A1c 6.8 % (4.3-6.0) H Uric Acid 9.0 MG/DL (2.6-7.2) H Phosphorus Level 2.3 MG/DL (2.5-4.9) L Magnesium Level 2.3 MG/DL (1.8-2.4) Gamma Glutamyl Transpeptidase 119 U/L (5-85) H Total Creatine Kinase 1773 U/L (26-308) H C-Reactive Protein, Quantitative 19.1 mg/dL (0.00-0.90) H Pro-B-Type Natriuretic Peptide 416 pg/mL (0-125) H Thyroid Stimulating Hormone (TSH) 1.610 uiU/mL (0.358-3.740) LEIDA LANDIN M.D. Mar 05, 2017 09:48
--- NOTE | 2017-03-05 13:44 | Nephrology Progress Note ---
Assessment/Plan Problem List: (1) Respiratory disorder with ventilator dependence (2) UTI (urinary tract infection) (3) Hypernatremia (4) Acute renal failure Assessment - Acute renal failure cr 1.1 to 2.4 to 2.1 - Chronic paranoid schizophrenia - Respiratory disorder with ventilator dependence - Healthcare associated bacterial pneumonia - UTI (urinary tract infection) - SIRS (systemic inflammatory response syndrome) - Alzheimer disease - Hypokalemia - Hypernatremia / due to water deficit improving with D5 Plan plan: D5W continue- Pulm support antibiotics monitor renal parameters K Phos IV per orders Subjective ROS Limited/Unobtainable: Yes Objective Objective Last 24 Hour Vital Signs Date Time Temp Pulse Resp B/P (MAP) Pulse Ox O2 Delivery O2 Flow Rate FiO2 03/05/17 13:07 102 25 100 Mechanical Ventilator 50 03/05/17 13:06 102 28 50 03/05/17 13:00 104 20 115/78 100 Mechanical Ventilator 50 03/05/17 12:00 50 03/05/17 12:00 97.7 104 25 100/70 100 Mechanical Ventilator 50 03/05/17 12:00 103 03/05/17 11:30 104 26 50 03/05/17 11:00 103 16 104/66 100 Mechanical Ventilator 50 03/05/17 10:00 105 16 98/59 100 Mechanical Ventilator 50 03/05/17 10:00 20 03/05/17 10:00 101.0 03/05/17 09:45 101 16 50 03/05/17 09:00 111 20 95/62 100 Mechanical Ventilator 50 03/05/17 08:54 28 03/05/17 08:00 102.0 115 26 104/58 99 Mechanical Ventilator 50 03/05/17 08:00 112 03/05/17 08:00 101 24 100 Mechanical Ventilator 03/05/17 08:00 50 03/05/17 08:00 25 03/05/17 07:52 115 28 98 Mechanical Ventilator 50 03/05/17 07:51 115 26 50 03/05/17 07:00 100.0 115 26 101/59 100 Mechanical Ventilator 50 03/05/17 06:00 26 03/05/17 06:00 115 26 88/63 100 Mechanical Ventilator 50 03/05/17 05:30 115 26 50 03/05/17 05:30 115 26 93/72 100 Mechanical Ventilator 50 03/05/17 05:00 26 03/05/17 05:00 116 26 89/61 100 Mechanical Ventilator 50 03/05/17 04:30 116 25 108/79 100 Mechanical Ventilator 50 03/05/17 04:00 50 03/05/17 04:00 112 03/05/17 04:00 24 03/05/17 04:00 112 03/05/17 04:00 99.0 112 26 105/79 100 Mechanical Ventilator 50 03/05/17 03:30 112 26 95/69 100 Mechanical Ventilator 50 03/05/17 03:30 113 26 50 03/05/17 03:00 25 03/05/17 03:00 112 25 89/66 100 Mechanical Ventilator 50 03/05/17 02:30 112 24 89/66 100 Mechanical Ventilator 50 03/05/17 02:00 112 25 92/65 100 Mechanical Ventilator 50 03/05/17 02:00 25 03/05/17 01:30 112 25 92/66 100 Mechanical Ventilator 50 03/05/17 01:18 116 24 100 Mechanical Ventilator 03/05/17 01:18 113 20 100 Mechanical Ventilator 50 03/05/17 01:16 113 20 50 03/05/17 01:00 113 25 93/65 100 Mechanical Ventilator 50 03/05/17 01:00 25 03/05/17 00:30 113 26 90/68 100 Mechanical Ventilator 50 03/05/17 00:00 99.2 113 25 92/65 100 Mechanical Ventilator 50 03/05/17 00:00 27 03/05/17 00:00 113 03/04/17 23:30 113 27 93/67 100 Mechanical Ventilator 50 03/04/17 23:20 114 28 50 03/04/17 23:00 115 29 89/70 100 Mechanical Ventilator 50 03/04/17 22:30 116 32 94/69 100 Mechanical Ventilator 50 03/04/17 22:10 99.0 03/04/17 22:00 33 03/04/17 22:00 116 33 97/66 100 Mechanical Ventilator 50 03/04/17 21:32 31 03/04/17 21:30 117 31 94/69 100 Mechanical Ventilator 50 03/04/17 21:30 118 31 50 03/04/17 21:00 117 27 92/67 100 Mechanical Ventilator 50 03/04/17 21:00 27 03/04/17 20:30 116 25 93/63 100 Mechanical Ventilator 50 03/04/17 20:05 120 26 Mechanical Ventilator 50 03/04/17 20:00 117 03/04/17 20:00 99.0 117 25 94/72 100 Mechanical Ventilator 50 03/04/17 20:00 50 03/04/17 20:00 25 03/04/17 19:30 120 26 Mechanical Ventilator 50 03/04/17 19:30 122 26 100 Mechanical Ventilator 50 03/04/17 19:30 117 23 97/67 100 Mechanical Ventilator 50 03/04/17 19:30 122 31 50 03/04/17 19:30 122 Mechanical Ventilator 03/04/17 19:00 119 25 97/74 100 Mechanical Ventilator 50 03/04/17 19:00 25 03/04/17 18:30 121 26 93/77 100 Mechanical Ventilator 50 03/04/17 18:00 120 30 95/71 100 Mechanical Ventilator 50 03/04/17 17:30 121 27 95/71 100 Mechanical Ventilator 50 03/04/17 17:09 121 30 50 03/04/17 17:00 122 28 112/80 98 Mechanical Ventilator 50 03/04/17 17:00 28 03/04/17 16:30 120 27 94/65 97 Mechanical Ventilator 50 03/04/17 16:00 121 03/04/17 16:00 50 03/04/17 16:00 30 03/04/17 16:00 100.0 121 30 92/66 96 Mechanical Ventilator 50 03/04/17 15:30 122 31 98/64 97 Mechanical Ventilator 50 03/04/17 15:00 33 03/04/17 15:00 122 36 90/63 97 Mechanical Ventilator 50 03/04/17 14:55 123 29 50 03/04/17 14:30 123 34 89/61 95 Mechanical Ventilator 50 03/04/17 14:00 125 37 98/77 95 Mechanical Ventilator 50 03/04/17 13:53 37 Intake and Output 03/04/17 03/05/17 19:00 07:00 Intake Total 1664.0 ml 1943.50 ml Output Total 435 ml 760 ml Balance 1229.0 ml 1183.50 ml Intake Oral 0 ml IV Total 1664.0 ml 1943.50 ml Output Urine Total 435 ml 760 ml # Voids 1 # Bowel Movements 1 Laboratory Tests 03/04/17 15:00: White Blood Count 20.4H, Red Blood Count 5.31, Hemoglobin 15.0, Hematocrit 51.1 , Mean Corpuscular Volume 96, Mean Corpuscular Hemoglobin 28.3, Mean Corpuscular Hemoglobin Concent 29.4L, Red Cell Distribution Width 13.6, Platelet Count 156, Mean Platelet Volume 7.8, Neutrophils (%) (Auto) 81.2H, Lymphocytes (%) (Auto) 13.0L, Monocytes (%) (Auto) 5.4, Eosinophils (%) (Auto) 0.0, Basophils (%) (Auto) 0.5, Sodium Level 170*H, Potassium Level 4.5, Chloride Level 138H, Carbon Dioxide Level 20L, Anion Gap 11, Blood Urea Nitrogen 47H, Creatinine 2.2H, Estimat Glomerular Filtration Rate 36.1, Glucose Level 198H, Calcium Level 8.8, Total Bilirubin 1.4H, Direct Bilirubin 0.9H, Aspartate Amino Transf (AST/SGOT) 50H, Alanine Aminotransferase (ALT/SGPT) 60, Alkaline Phosphatase 104, Total Protein 7.0, Albumin 2.5L, Globulin 4.5, Albumin /Globulin Ratio 0.6L 03/04/17 17:30: Troponin I 0.186H 03/05/17 04:30: White Blood Count 20.5H, Red Blood Count 5.02, Hemoglobin 14.7, Hematocrit 48.1 , Mean Corpuscular Volume 96, Mean Corpuscular Hemoglobin 29.3, Mean Corpuscular Hemoglobin Concent 30.6L, Red Cell Distribution Width 13.6, Platelet Count 135L, Mean Platelet Volume 9.3, Neutrophils (%) (Auto) , Lymphocytes (%) (Auto) , Monocytes (%) (Auto) , Eosinophils (%) (Auto) , Basophils (%) (Auto) , Sodium Level 161*H, Potassium Level 3.7, Chloride Level 131H, Carbon Dioxide Level 21, Anion Gap 10, Blood Urea Nitrogen 41H, Creatinine 2.1H, Estimat Glomerular Filtration Rate 38.2, Glucose Level 136H, Calcium Level 7.6L, Total Bilirubin 1.7H, Direct Bilirubin 0.9H, Aspartate Amino Transf (AST/SGOT) 48H, Alanine Aminotransferase (ALT/SGPT) 46, Alkaline Phosphatase 90, Total Protein 6.9, Albumin 2.3L, Globulin 4.6, Albumin/Globulin Ratio 0.5L, Troponin I 0.244H, Differential Total Cells Counted 100, Neutrophils % (Manual) 73, Lymphocytes % (Manual) 12L, Monocytes % (Manual) 9, Eosinophils % (Manual) 1, Basophils % (Manual) 0, Band Neutrophils 5, Platelet Estimate DecreasedL, Platelet Morphology Normal, Red Blood Cell Morphology Normal, Hemoglobin A1c 6.8H, Uric Acid 9.0H, Phosphorus Level 2.3L, Magnesium Level 2.3, Gamma Glutamyl Transpeptidase 119H, Total Creatine Kinase 1773H, C- Reactive Protein, Quantitative 19.1H, Pro-B-Type Natriuretic Peptide 416H, Thyroid Stimulating Hormone (TSH) 1.610 03/05/17 09:48: Arterial Blood pH 7.416, Arterial Blood Partial Pressure CO2 31.0L, Arterial Blood Partial Pressure O2 80.7, Arterial Blood HCO3 19.5L, Arterial Blood Oxygen Saturation 96.1, Arterial Blood Base Excess -3.9, Ulises Test [Pending] 03/05/17 10:45: Troponin I 0.348H Height (Feet): 5 Height (Inches): 9.00 Weight (Pounds): 130 EENT: other - intubated Cardiovascular: tachycardia Respiratory/Chest: decreased breath sounds Abdomen: distended CHACHA NUNES Mar 05, 2017 13:44
--- NOTE | 2017-03-05 19:42 | Infectious Diseases Prog Note ---
Assessment/Plan Assessment/Plan ASSESSMENT: The patient is a 71-year-old male with: +ve blood Cx : GPC Sepsis. Leukocytosis. Fever. Probable underlying pneumonia. May need to rule out intra-abdominal sepsis if the patient's white blood cell does not improve. Positive cardiac enzymes. Acute renal failure. Influenza negative. Possible urinary tract infection. Dysphagia. Osteoarthritis. Hypertension. COPD. History of GERD. History of H. pylori in the past. Dementia with psychosis. PLAN: continue the patient on vancomycin and Zosyn d# 2 Monitor CBC. Monitor BMP. Monitor cultures (blood, urine, and sputum) Monitor chest x-ray. Monitor renal function. Subjective Allergies: Coded Allergies: No Known Allergies (Unverified , 10/20/16) Subjective afebrile Objective Vital Signs Last 24 Hour Vital Signs Date Time Temp Pulse Resp B/P (MAP) Pulse Ox O2 Delivery O2 Flow Rate FiO2 03/05/17 19:25 101 28 100 Mechanical Ventilator 45 03/05/17 19:24 101 28 45 03/05/17 19:00 100 22 119/79 100 Mechanical Ventilator 50 03/05/17 18:00 104 31 111/72 99 Mechanical Ventilator 50 03/05/17 17:17 103 27 50 03/05/17 17:00 101 25 112/72 99 Mechanical Ventilator 50 03/05/17 16:00 102 03/05/17 16:00 50 03/05/17 16:00 98.6 102 26 100/74 100 Mechanical Ventilator 50 03/05/17 15:20 104 26 50 03/05/17 15:00 104 27 104/70 98 Mechanical Ventilator 50 03/05/17 14:00 106 33 98/69 100 Mechanical Ventilator 50 03/05/17 13:13 104 26 100 Mechanical Ventilator 03/05/17 13:07 102 25 100 Mechanical Ventilator 50 03/05/17 13:06 102 28 50 03/05/17 13:00 104 20 115/78 100 Mechanical Ventilator 50 03/05/17 12:00 50 03/05/17 12:00 97.7 104 25 100/70 100 Mechanical Ventilator 50 03/05/17 12:00 103 03/05/17 11:30 104 26 50 03/05/17 11:00 103 16 104/66 100 Mechanical Ventilator 50 03/05/17 10:00 105 16 98/59 100 Mechanical Ventilator 50 03/05/17 10:00 20 12/22/17 10:00 101.0 03/05/17 09:45 101 16 50 03/05/17 09:00 111 20 95/62 100 Mechanical Ventilator 50 03/05/17 08:54 28 03/05/17 08:00 102.0 115 26 104/58 99 Mechanical Ventilator 50 03/05/17 08:00 112 03/05/17 08:00 101 24 100 Mechanical Ventilator 03/05/17 08:00 50 03/05/17 08:00 25 03/05/17 07:52 115 28 98 Mechanical Ventilator 50 03/05/17 07:51 115 26 50 03/05/17 07:00 100.0 115 26 101/59 100 Mechanical Ventilator 50 03/05/17 06:00 26 03/05/17 06:00 115 26 88/63 100 Mechanical Ventilator 50 03/05/17 05:30 115 26 50 03/05/17 05:30 115 26 93/72 100 Mechanical Ventilator 50 03/05/17 05:00 26 03/05/17 05:00 116 26 89/61 100 Mechanical Ventilator 50 03/05/17 04:30 116 25 108/79 100 Mechanical Ventilator 50 03/05/17 04:00 50 03/05/17 04:00 112 03/05/17 04:00 24 03/05/17 04:00 112 03/05/17 04:00 99.0 112 26 105/79 100 Mechanical Ventilator 50 03/05/17 03:30 112 26 95/69 100 Mechanical Ventilator 50 03/05/17 03:30 113 26 50 03/05/17 03:00 25 03/05/17 03:00 112 25 89/66 100 Mechanical Ventilator 50 03/05/17 02:30 112 24 89/66 100 Mechanical Ventilator 50 03/05/17 02:00 112 25 92/65 100 Mechanical Ventilator 50 03/05/17 02:00 25 03/05/17 01:30 112 25 92/66 100 Mechanical Ventilator 50 03/05/17 01:18 116 24 100 Mechanical Ventilator 03/05/17 01:18 113 20 100 Mechanical Ventilator 50 03/05/17 01:16 113 20 50 03/05/17 01:00 113 25 93/65 100 Mechanical Ventilator 50 03/05/17 01:00 25 03/05/17 00:30 113 26 90/68 100 Mechanical Ventilator 50 03/05/17 00:00 99.2 113 25 92/65 100 Mechanical Ventilator 50 03/05/17 00:00 27 03/05/17 00:00 113 03/04/17 23:30 113 27 93/67 100 Mechanical Ventilator 50 03/04/17 23:20 114 28 50 03/04/17 23:00 115 29 89/70 100 Mechanical Ventilator 50 03/04/17 22:30 116 32 94/69 100 Mechanical Ventilator 50 03/04/17 22:10 99.0 03/04/17 22:00 33 03/04/17 22:00 116 33 97/66 100 Mechanical Ventilator 50 03/04/17 21:32 31 03/04/17 21:30 117 31 94/69 100 Mechanical Ventilator 50 03/04/17 21:30 118 31 50 03/04/17 21:00 117 27 92/67 100 Mechanical Ventilator 50 03/04/17 21:00 27 03/04/17 20:30 116 25 93/63 100 Mechanical Ventilator 50 03/04/17 20:05 120 26 Mechanical Ventilator 50 03/04/17 20:00 117 03/04/17 20:00 99.0 117 25 94/72 100 Mechanical Ventilator 50 03/04/17 20:00 50 03/04/17 20:00 25 Height (Feet): 5 Height (Inches): 9.00 Weight (Pounds): 130 HEENT: anicteric Respiratory/Chest: normal breath sounds Cardiovascular: regularly irregular Abdomen: non distended Microbiology Date/Time Source Procedure Growth Status 03/03/17 20:50 Blood Blood Culture - Preliminary NO GROWTH AFTER 24 HOURS Resulted 03/03/17 20:45 Blood Blood Culture - Preliminary Resulted 03/05/17 09:00 Sputum Gram Stain - Final Resulted 03/05/17 09:00 Sputum Sputum Culture Pending Resulted 03/03/17 20:50 Nasal Nares Influenza Types A,B Antigen (GENEVIEVE) - Final Complete 03/04/17 15:30 Urine,Clean Catch Urine Culture - Preliminary NO GROWTH Resulted Laboratory Tests Test 03/05/17 04:30 03/05/17 09:48 03/05/17 10:45 03/05/17 17:45 White Blood Count 20.5 K/UL (4.8-10.8) H Red Blood Count 5.02 M/UL (4.70-6.10) Hemoglobin 14.7 G/DL (14.2-18.0) Hematocrit 48.1 % (42.0-52.0) Mean Corpuscular Volume 96 FL (80-99) Mean Corpuscular Hemoglobin 29.3 PG (27.0-31.0) Mean Corpuscular Hemoglobin Concent 30.6 G/DL (32.0-36.0) L Red Cell Distribution Width 13.6 % (11.6-14.8) Platelet Count 135 K/UL (150-450) L Mean Platelet Volume 9.3 FL (6.5-10.1) Neutrophils (%) (Auto) % (45.0-75.0) Lymphocytes (%) (Auto) % (20.0-45.0) Monocytes (%) (Auto) % (1.0-10.0) Eosinophils (%) (Auto) % (0.0-3.0) Basophils (%) (Auto) % (0.0-2.0) Differential Total Cells Counted 100 Neutrophils % (Manual) 73 % (45-75) Lymphocytes % (Manual) 12 % (20-45) L Monocytes % (Manual) 9 % (1-10) Eosinophils % (Manual) 1 % (0-3) Basophils % (Manual) 0 % (0-2) Band Neutrophils 5 % (0-8) Platelet Estimate Decreased L Platelet Morphology Normal Red Blood Cell Morphology Normal Sodium Level 161 MMOL/L (136-145) *H Potassium Level 3.7 MMOL/L (3.5-5.1) Chloride Level 131 MMOL/L (98-107) H Carbon Dioxide Level 21 MMOL/L (21-32) Anion Gap 10 mmol/L (5-15) Blood Urea Nitrogen 41 mg/dL (7-18) H Creatinine 2.1 MG/DL (0.55-1.30) H Estimat Glomerular Filtration Rate 38.2 mL/min (>60) Glucose Level 136 MG/DL (74-106) H Hemoglobin A1c 6.8 % (4.3-6.0) H Uric Acid 9.0 MG/DL (2.6-7.2) H Calcium Level 7.6 MG/DL (8.5-10.1) L Phosphorus Level 2.3 MG/DL (2.5-4.9) L Magnesium Level 2.3 MG/DL (1.8-2.4) Total Bilirubin 1.7 MG/DL (0.2-1.0) H Direct Bilirubin 0.9 MG/DL (0.0-0.3) H Gamma Glutamyl Transpeptidase 119 U/L (5-85) H Aspartate Amino Transf (AST/SGOT) 48 U/L (15-37) H Alanine Aminotransferase (ALT/SGPT) 46 U/L (12-78) Alkaline Phosphatase 90 U/L (46-116) Total Creatine Kinase 1773 U/L (26-308) H Troponin I 0.244 ng/mL (0.000-0.056) 0.348 ng/mL (0.000-0.056) 0.336 ng/mL (0.000-0.056) C-Reactive Protein, Quantitative 19.1 mg/dL (0.00-0.90) H Pro-B-Type Natriuretic Peptide 416 pg/mL (0-125) H Total Protein 6.9 G/DL (6.4-8.2) Albumin 2.3 G/DL (3.4-5.0) L Globulin 4.6 g/dL Albumin/Globulin Ratio 0.5 (1.0-2.7) L Thyroid Stimulating Hormone (TSH) 1.610 uiU/mL (0.358-3.740) Arterial Blood pH 7.416 (7.350-7.450) Arterial Blood Partial Pressure CO2 31.0 mmHg (35.0-45.0) L Arterial Blood Partial Pressure O2 80.7 mmHg (75.0-100.0) Arterial Blood HCO3 19.5 mmol/L (22.0-26.0) L Arterial Blood Oxygen Saturation 96.1 % (92.0-98.0) Arterial Blood Base Excess -3.9 Ulises Test Pending Current Medications Medications (Trade) Dose Ordered Sig/Ant Route PRN Reason Start Time Stop Time Status Last Admin Dose Admin Acetaminophen (Tylenol) 650 mg Q4H PRN ORAL Mild Pain/Temp > 100.5 03/04/17 08:45 04/03/17 08:44 03/05/17 08:55 Albuterol/ Ipratropium (Albuterol/ Ipratropium) 3 ml Q6HRT HHN 03/04/17 13:00 03/09/17 12:59 03/05/17 19:26 Dextrose 1,000 ml @ 150 mls/hr Q6H40M IV 03/04/17 12:00 04/03/17 11:59 03/05/17 15:00 Fentanyl Citrate 1000 mcg/Sodium Chloride 100 ml @ 0 mls/hr Q24H IV 03/04/17 13:30 03/11/17 13:29 03/04/17 21:32 Heparin Sodium (Porcine) (Heparin 5000 units/ml) 5,000 units EVERY 12 HOURS SUBQ 03/04/17 21:00 04/03/17 20:59 03/04/17 20:32 Lorazepam (Ativan 2mg/ml 1ml) 1 mg Q4H PRN IV For Anxiety 03/04/17 09:30 03/11/17 09:29 03/04/17 10:30 Midazolam HCl (Versed 2mg/2ml vial) 1 mg Q2H PRN IVP agitation 03/04/17 11:45 04/03/17 11:44 03/04/17 13:33 Pantoprazole (Protonix) 40 mg Q12HR IVP 03/04/17 21:00 04/03/17 20:59 03/05/17 08:55 Piperacillin Sod/ Tazobactam Sod 3.375 gm/Dextrose 55 ml @ 13.75 mls/ hr EVERY 12 HOURS IVPB 03/04/17 21:00 03/11/17 20:59 03/05/17 08:54 Vancomycin HCl (Vanco rx to dose) 1 ea DAILY PRN MISC Per rx protocol 03/04/17 08:45 04/03/17 08:44 Vancomycin HCl 1 gm/Dextrose 275 ml @ 183.708 mls/hr Q12HR@1000,2200 IVPB 03/04/17 10:00 03/09/17 09:59 03/05/17 08:55 NATALY STEPHENSON M.D. Mar 05, 2017 19:42
[2017-03-06] VITALS (25 sets, daily range): BP systolic 81–123; BP diastolic 47–78
--- NOTE | 2017-03-06 00:26 | Cardiology Report ---
APPROVED REPORT EKG Measurement Heart [id number] Sinus tachycardia Cannot rule out Anterior infarct, age undetermined Abnormal ECG
[2017-03-06] MEDS: Albuterol/Ipratropium 3ml neb HHN SCH ×4 (01:02→19:00)
[2017-03-06 05:42] LABS: BASOPHILS % (AUTO) 0.5 % (0.0-2.0); EOSINOPHILS % (AUTO) 0.5 % (0.0-3.0); HEMATOCRIT 45.1 % (42.0-52.0); HEMOGLOBIN 13.8 G/DL (14.2-18.0); LYMPHOCYTES % (AUTO) 9.4 % (20.0-45.0); MEAN CORPUSCULAR VOLUME 94 FL (80-99); MONOCYTES % (AUTO) 6.6 % (1.0-10.0); NEUTROPHILS % (AUTO) 82.9 % (45.0-75.0); PLATELET COUNT 131 K/UL (150-450); RED BLOOD COUNT 4.82 M/UL (4.70-6.10); RED CELL DISTRIBUTION WIDTH 13.4 % (11.6-14.8); WHITE BLOOD COUNT 14.2 K/UL (4.8-10.8)
[2017-03-06 06:14] LABS: ALANINE AMINOTRANSFERASE 45 U/L (12-78); ALBUMIN/GLOBULIN RATIO 0.4 (1.0-2.7); ALKALINE PHOSPHATASE 86 U/L (46-116); ANION GAP 14 mmol/L (5-15); ASPARTATE AMINO TRANSFERASE 101 U/L (15-37); BILIRUBIN,TOTAL 1.7 MG/DL (0.2-1.0); BLOOD UREA NITROGEN 23 mg/dL (7-18); CALCIUM 6.9 MG/DL (8.5-10.1); CARBON DIOXIDE 19 MMOL/L (21-32); CHLORIDE 116 MMOL/L (98-107); CREATININE 1.9 MG/DL (0.55-1.30); POTASSIUM 3.5 MMOL/L (3.5-5.1); SODIUM 148 MMOL/L (136-145)
[2017-03-06 06:17] LABS: PHOSPHORUS 1.6 MG/DL (2.5-4.9)
[2017-03-06 06:19] LABS: CREATINE KINASE 6957 U/L (26-308)
[2017-03-06 06:22] LABS: BILIRUBIN,DIRECT 0.7 MG/DL (0.0-0.3)
[2017-03-06] MEDS: Midazolam 2mg/2ml Inj IVP PRN (08:04)
[2017-03-06] MEDS: Pantoprazole Inj IVP SCH ×2 (09:13→20:53)
[2017-03-06] MEDS: Piperacillin/Tazobactam 3.375 GM in D5W 55 ML IVPB SCH ×2 (09:14→20:53)
[2017-03-06] MEDS: Heparin 5000 units/ml inj SUBQ SCH ×2 (09:14→20:54)
--- NOTE | 2017-03-06 09:36 | Pulmonolgy Critical Care Note ---
Critical Care - Asmt/Plan Problems: (1) Chronic paranoid schizophrenia (2) halfway resident (3) Respiratory disorder with ventilator dependence (4) Healthcare associated bacterial pneumonia (5) UTI (urinary tract infection) (6) SIRS (systemic inflammatory response syndrome) (7) Alzheimer disease (8) Hypokalemia (9) Hypernatremia (10) Gram-positive bacteremia Assessment/Plan: -Continue ventilatory support --> A/C 16, TV 450, PEEP 5, FiO2 50 -Titrate down FiO2 to keep SaO2 > 90% -SBT in am -Optimize pulmonary hygiene/mobilize as tolerated -RTC and PRN HHN's -Frequent inline suctioning -Monitor volumes -Continue D5W per renal, ? switch to NS now that free water deficit corrected -Monitor electrolytes and adjust accordingly -Abx per ID, F/U Cx's -Abdominal US -Monitor MS, PRN sedation only -Hep SQ -PPI -Would start enteral feeds if ok with GI -FC, continue to address GOC CC (45) Critical Care - Objective Last 24 Hour Vital Signs Date Time Temp Pulse Resp B/P (MAP) Pulse Ox O2 Delivery O2 Flow Rate FiO2 03/06/17 09:13 101.0 03/06/17 08:50 40 03/06/17 08:00 45 03/06/17 08:00 102.6 125 40 116/76 94 Mechanical Ventilator 50 03/06/17 07:52 112 30 100 Mechanical Ventilator 45 03/06/17 07:26 106 30 100 Mechanical Ventilator 45 03/06/17 07:25 108 30 45 03/06/17 07:00 118 37 112/66 95 Mechanical Ventilator 50 03/06/17 06:00 119 36 108/63 100 Mechanical Ventilator 50 03/06/17 05:00 126 37 101/70 100 Mechanical Ventilator 50 03/06/17 04:39 126 44 45 03/06/17 04:00 99.2 132 30 117/70 100 Mechanical Ventilator 50 03/06/17 04:00 45 03/06/17 04:00 132 03/06/17 03:29 131 48 45 03/06/17 03:00 118 33 101/72 100 Mechanical Ventilator 50 03/06/17 02:00 118 35 110/78 100 Mechanical Ventilator 50 03/06/17 01:20 116 39 100 Mechanical Ventilator 45 03/06/17 01:02 118 48 100 Mechanical Ventilator 45 03/06/17 01:01 119 50 45 03/06/17 01:00 119 28 109/74 100 Mechanical Ventilator 50 03/06/17 00:00 118 03/06/17 00:00 45 03/06/17 00:00 98.4 118 31 123/73 100 Mechanical Ventilator 50 03/05/17 23:13 122 40 45 03/05/17 23:00 113 33 123/73 100 Mechanical Ventilator 50 03/05/17 22:00 118 36 118/82 100 Mechanical Ventilator 50 03/05/17 21:10 114 32 45 03/05/17 21:00 115 31 109/72 100 Mechanical Ventilator 50 03/05/17 20:00 107 03/05/17 20:00 45 03/05/17 20:00 98.8 107 29 142/77 100 Mechanical Ventilator 50 03/05/17 19:40 104 26 100 Mechanical Ventilator 45 03/05/17 19:25 101 28 100 Mechanical Ventilator 45 03/05/17 19:24 101 28 45 03/05/17 19:00 100 22 119/79 100 Mechanical Ventilator 50 03/05/17 18:00 104 31 111/72 99 Mechanical Ventilator 50 03/05/17 17:17 103 27 50 03/05/17 17:00 101 25 112/72 99 Mechanical Ventilator 50 03/05/17 16:00 102 03/05/17 16:00 50 03/05/17 16:00 98.6 102 26 100/74 100 Mechanical Ventilator 50 03/05/17 15:20 104 26 50 03/05/17 15:00 104 27 104/70 98 Mechanical Ventilator 50 03/05/17 14:00 106 33 98/69 100 Mechanical Ventilator 50 03/05/17 13:13 104 26 100 Mechanical Ventilator 03/05/17 13:07 102 25 100 Mechanical Ventilator 50 03/05/17 13:06 102 28 50 03/05/17 13:00 104 20 115/78 100 Mechanical Ventilator 50 03/05/17 12:00 50 03/05/17 12:00 97.7 104 25 100/70 100 Mechanical Ventilator 50 03/05/17 12:00 103 03/05/17 11:30 104 26 50 03/05/17 11:00 103 16 104/66 100 Mechanical Ventilator 50 03/05/17 10:00 105 16 98/59 100 Mechanical Ventilator 50 03/05/17 10:00 20 03/05/17 09:45 101 16 50 Status: sedated Condition: critical HEENT: atraumatic, normocephalic Neck: other - ETT OGT Lungs: clear Heart: HR/BP stable Abdomen: soft, non-tender, active bowel sounds Extremities: no C/C/E, other - contracted Micro: Microbiology Date/Time Source Procedure Growth Status 03/03/17 20:50 Blood Blood Culture - Preliminary NO GROWTH AFTER 24 HOURS Resulted 03/03/17 20:45 Blood Blood Culture - Preliminary Resulted 03/05/17 09:00 Sputum Gram Stain - Final Resulted 03/05/17 09:00 Sputum Sputum Culture Pending Resulted 03/03/17 20:50 Nasal Nares Influenza Types A,B Antigen (GENEVIEVE) - Final Complete 03/04/17 15:30 Urine,Clean Catch Urine Culture - Preliminary NO GROWTH Resulted 03/03/17 19:25 Rectum VRE Culture - Final NO VANCOMYCIN RESISTANT ENTEROCOCCUS ... Complete Critical Care - Subjective ROS Limited/Unobtainable: Yes ICU Day: 4 Intubation Day: 4 Interval Events: Stable on Vent FiO2 50 Tm 102 Na and Cr better Duplex Neg Condition: critical IV Access: central EKG Rhythm: Sinus Rhythm FI02: 45 Vent Support Breath Rate: 16 Vent Support Mode: AC Vent Tidal Volume: 450 Sputum Amount: Small PEEP: 5.0 PIP: 24 Secretions: Small Fluids: D5W @ 75 I&O: Intake and Output 03/05/17 03/06/17 19:00 07:00 Intake Total 1928.00 ml 1855.00 ml Output Total 630 ml 590 ml Balance 1298.00 ml 1265.00 ml IV Total 1928.00 ml 1855.00 ml Output Urine Total 630 ml 590 ml Subjective: Not obtainable ET-Tube: 7.5 ET Position: 25 Labs: Laboratory Tests Test 03/05/17 09:48 03/05/17 10:45 03/05/17 17:45 03/05/17 21:30 Arterial Blood pH 7.416 (7.350-7.450) Arterial Blood Partial Pressure CO2 31.0 mmHg (35.0-45.0) L Arterial Blood Partial Pressure O2 80.7 mmHg (75.0-100.0) Arterial Blood HCO3 19.5 mmol/L (22.0-26.0) L Arterial Blood Oxygen Saturation 96.1 % (92.0-98.0) Arterial Blood Base Excess -3.9 Ulises Test Pending Troponin I 0.348 ng/mL (0.000-0.056) 0.336 ng/mL (0.000-0.056) Vancomycin Level Trough 21.6 ug/mL (5.0-12.0) H Test 03/06/17 05:00 White Blood Count 14.2 K/UL (4.8-10.8) H Red Blood Count 4.82 M/UL (4.70-6.10) Hemoglobin 13.8 G/DL (14.2-18.0) L Hematocrit 45.1 % (42.0-52.0) Mean Corpuscular Volume 94 FL (80-99) Mean Corpuscular Hemoglobin 28.6 PG (27.0-31.0) Mean Corpuscular Hemoglobin Concent 30.5 G/DL (32.0-36.0) L Red Cell Distribution Width 13.4 % (11.6-14.8) Platelet Count 131 K/UL (150-450) L Mean Platelet Volume 9.3 FL (6.5-10.1) Neutrophils (%) (Auto) 82.9 % (45.0-75.0) H Lymphocytes (%) (Auto) 9.4 % (20.0-45.0) L Monocytes (%) (Auto) 6.6 % (1.0-10.0) Eosinophils (%) (Auto) 0.5 % (0.0-3.0) Basophils (%) (Auto) 0.5 % (0.0-2.0) Sodium Level 148 MMOL/L (136-145) H Potassium Level 3.5 MMOL/L (3.5-5.1) Chloride Level 116 MMOL/L (98-107) H Carbon Dioxide Level 19 MMOL/L (21-32) L Anion Gap 14 mmol/L (5-15) Blood Urea Nitrogen 23 mg/dL (7-18) H Creatinine 1.9 MG/DL (0.55-1.30) H Estimat Glomerular Filtration Rate 42.8 mL/min (>60) Glucose Level 160 MG/DL (74-106) H Uric Acid 5.9 MG/DL (2.6-7.2) Calcium Level 6.9 MG/DL (8.5-10.1) L Phosphorus Level 1.6 MG/DL (2.5-4.9) L Magnesium Level 1.8 MG/DL (1.8-2.4) Total Bilirubin 1.7 MG/DL (0.2-1.0) H Direct Bilirubin 0.7 MG/DL (0.0-0.3) H Aspartate Amino Transf (AST/SGOT) 101 U/L (15-37) H Alanine Aminotransferase (ALT/SGPT) 45 U/L (12-78) Alkaline Phosphatase 86 U/L (46-116) Total Creatine Kinase 6957 U/L (26-308) H Troponin I 0.376 ng/mL (0.000-0.056) C-Reactive Protein, Quantitative 21.0 mg/dL (0.00-0.90) H Pro-B-Type Natriuretic Peptide 255 pg/mL (0-125) H Total Protein 6.5 G/DL (6.4-8.2) Albumin 2.0 G/DL (3.4-5.0) L Globulin 4.5 g/dL Albumin/Globulin Ratio 0.4 (1.0-2.7) L LEIDA LANDIN M.D. Mar 06, 2017 09:35
[2017-03-06] MEDS: LORazepam Inj 2mg/ml 1ml IV PRN (10:33)
[2017-03-06] MEDS: Vancomycin 750mg/NS 250ml IVPB SCH ×2 (10:33→22:56)
[2017-03-06] MEDS ORDERED: Potassium Phosphate 30 MM in NS 275 ML IV ONE (11:00)
--- NOTE | 2017-03-06 11:44 | Infectious Diseases Prog Note ---
Assessment/Plan Assessment/Plan ASSESSMENT: The patient is a 71-year-old male with: +ve blood Cx : GPC Sepsis. Leukocytosis improving Fever Probable underlying pneumonia. Scx : GNR May need to rule out intra-abdominal sepsis if the patient's white blood cell does not improve Possible urinary tract infection Influenza negative AST Elevation Positive cardiac enzymes. Acute renal failure, improving Dysphagia. Osteoarthritis. Hypertension. COPD. History of GERD History of H. pylori in the past Dementia with psychosis PLAN: continue the patient on vancomycin and Zosyn d# 3 Monitor CBC. Monitor BMP. Monitor cultures (blood, urine, and sputum) Monitor chest x-ray. Monitor renal function. change Fem to PICC ( [facility]MER ) US of Abd Subjective Allergies: Coded Allergies: No Known Allergies (Unverified , 10/20/16) Subjective febrile Objective Vital Signs Last 24 Hour Vital Signs Date Time Temp Pulse Resp B/P (MAP) Pulse Ox O2 Delivery O2 Flow Rate FiO2 03/06/17 11:00 118 33 95/61 94 Mechanical Ventilator 60 03/06/17 10:56 121 44 45 03/06/17 10:00 119 34 103/70 95 Mechanical Ventilator 45 03/06/17 09:30 101.0 03/06/17 09:23 113 34 45 03/06/17 09:13 101.0 03/06/17 09:00 124 40 98/67 94 Mechanical Ventilator 45 03/06/17 08:50 40 03/06/17 08:00 45 03/06/17 08:00 102.6 125 40 116/76 94 Mechanical Ventilator 50 03/06/17 08:00 116 03/06/17 07:52 112 30 100 Mechanical Ventilator 45 03/06/17 07:26 106 30 100 Mechanical Ventilator 45 03/06/17 07:25 108 30 45 03/06/17 07:00 118 37 112/66 95 Mechanical Ventilator 50 03/06/17 06:00 119 36 108/63 100 Mechanical Ventilator 50 03/06/17 05:00 126 37 101/70 100 Mechanical Ventilator 50 03/06/17 04:39 126 44 45 03/06/17 04:00 99.2 132 30 117/70 100 Mechanical Ventilator 50 03/06/17 04:00 45 03/06/17 04:00 132 03/06/17 03:29 131 48 45 03/06/17 03:00 118 33 101/72 100 Mechanical Ventilator 50 03/06/17 02:00 118 35 110/78 100 Mechanical Ventilator 50 03/06/17 01:20 116 39 100 Mechanical Ventilator 45 03/06/17 01:02 118 48 100 Mechanical Ventilator 45 03/06/17 01:01 119 50 45 03/06/17 01:00 119 28 109/74 100 Mechanical Ventilator 50 03/06/17 00:00 118 03/06/17 00:00 45 03/06/17 00:00 98.4 118 31 123/73 100 Mechanical Ventilator 50 03/05/17 23:13 122 40 45 03/05/17 23:00 113 33 123/73 100 Mechanical Ventilator 50 03/05/17 22:00 118 36 118/82 100 Mechanical Ventilator 50 03/05/17 21:10 114 32 45 03/05/17 21:00 115 31 109/72 100 Mechanical Ventilator 50 03/05/17 20:00 107 03/05/17 20:00 45 03/05/17 20:00 98.8 107 29 142/77 100 Mechanical Ventilator 50 03/05/17 19:40 104 26 100 Mechanical Ventilator 45 03/05/17 19:25 101 28 100 Mechanical Ventilator 45 03/05/17 19:24 101 28 45 03/05/17 19:00 100 22 119/79 100 Mechanical Ventilator 50 03/05/17 18:00 104 31 111/72 99 Mechanical Ventilator 50 03/05/17 17:17 103 27 50 03/05/17 17:00 101 25 112/72 99 Mechanical Ventilator 50 03/05/17 16:00 102 03/05/17 16:00 50 03/05/17 16:00 98.6 102 26 100/74 100 Mechanical Ventilator 50 03/05/17 15:20 104 26 50 03/05/17 15:00 104 27 104/70 98 Mechanical Ventilator 50 03/05/17 14:00 106 33 98/69 100 Mechanical Ventilator 50 03/05/17 13:13 104 26 100 Mechanical Ventilator 03/05/17 13:07 102 25 100 Mechanical Ventilator 50 03/05/17 13:06 102 28 50 03/05/17 13:00 104 20 115/78 100 Mechanical Ventilator 50 03/05/17 12:00 50 03/05/17 12:00 97.7 104 25 100/70 100 Mechanical Ventilator 50 03/05/17 12:00 103 Height (Feet): 5 Height (Inches): 9.00 Weight (Pounds): 130 HEENT: atraumatic Respiratory/Chest: normal breath sounds Cardiovascular: regular rhythm Abdomen: no organomegaly Microbiology Date/Time Source Procedure Growth Status 03/03/17 20:50 Blood Blood Culture - Preliminary NO GROWTH AFTER 24 HOURS Resulted 03/03/17 20:45 Blood Blood Culture - Preliminary Resulted 03/05/17 09:00 Sputum Gram Stain - Final Resulted 03/05/17 09:00 Sputum Culture - Preliminary Gram Negative Socrates Resulted 03/03/17 20:50 Nasal Nares Influenza Types A,B Antigen (GENEVIEVE) - Final Complete 03/04/17 15:30 Urine,Clean Catch Urine Culture - Final NO GROWTH AFTER 48 HOURS Complete 03/03/17 19:25 Rectum VRE Culture - Final NO VANCOMYCIN RESISTANT ENTEROCOCCUS ... Complete Laboratory Tests Test 03/05/17 17:45 03/05/17 21:30 03/06/17 05:00 Troponin I 0.336 ng/mL (0.000-0.056) 0.376 ng/mL (0.000-0.056) Vancomycin Level Trough 21.6 ug/mL (5.0-12.0) H White Blood Count 14.2 K/UL (4.8-10.8) H Red Blood Count 4.82 M/UL (4.70-6.10) Hemoglobin 13.8 G/DL (14.2-18.0) L Hematocrit 45.1 % (42.0-52.0) Mean Corpuscular Volume 94 FL (80-99) Mean Corpuscular Hemoglobin 28.6 PG (27.0-31.0) Mean Corpuscular Hemoglobin Concent 30.5 G/DL (32.0-36.0) L Red Cell Distribution Width 13.4 % (11.6-14.8) Platelet Count 131 K/UL (150-450) L Mean Platelet Volume 9.3 FL (6.5-10.1) Neutrophils (%) (Auto) 82.9 % (45.0-75.0) H Lymphocytes (%) (Auto) 9.4 % (20.0-45.0) L Monocytes (%) (Auto) 6.6 % (1.0-10.0) Eosinophils (%) (Auto) 0.5 % (0.0-3.0) Basophils (%) (Auto) 0.5 % (0.0-2.0) Sodium Level 148 MMOL/L (136-145) H Potassium Level 3.5 MMOL/L (3.5-5.1) Chloride Level 116 MMOL/L (98-107) H Carbon Dioxide Level 19 MMOL/L (21-32) L Anion Gap 14 mmol/L (5-15) Blood Urea Nitrogen 23 mg/dL (7-18) H Creatinine 1.9 MG/DL (0.55-1.30) H Estimat Glomerular Filtration Rate 42.8 mL/min (>60) Glucose Level 160 MG/DL (74-106) H Uric Acid 5.9 MG/DL (2.6-7.2) Calcium Level 6.9 MG/DL (8.5-10.1) L Phosphorus Level 1.6 MG/DL (2.5-4.9) L Magnesium Level 1.8 MG/DL (1.8-2.4) Total Bilirubin 1.7 MG/DL (0.2-1.0) H Direct Bilirubin 0.7 MG/DL (0.0-0.3) H Aspartate Amino Transf (AST/SGOT) 101 U/L (15-37) H Alanine Aminotransferase (ALT/SGPT) 45 U/L (12-78) Alkaline Phosphatase 86 U/L (46-116) Total Creatine Kinase 6957 U/L (26-308) H C-Reactive Protein, Quantitative 21.0 mg/dL (0.00-0.90) H Pro-B-Type Natriuretic Peptide 255 pg/mL (0-125) H Total Protein 6.5 G/DL (6.4-8.2) Albumin 2.0 G/DL (3.4-5.0) L Globulin 4.5 g/dL Albumin/Globulin Ratio 0.4 (1.0-2.7) L Current Medications Medications (Trade) Dose Ordered Sig/Ant Route PRN Reason Start Time Stop Time Status Last Admin Dose Admin Acetaminophen (Tylenol) 650 mg Q4H PRN ORAL Mild Pain/Temp > 100.5 03/04/17 08:45 04/03/17 08:44 03/06/17 07:58 Albuterol/ Ipratropium (Albuterol/ Ipratropium) 3 ml Q6HRT HHN 03/04/17 13:00 03/09/17 12:59 03/06/17 07:24 Dextrose 1,000 ml @ 75 mls/hr [id number] IV 03/06/17 09:00 04/05/17 08:59 03/06/17 08:51 Fentanyl Citrate 1000 mcg/Sodium Chloride 100 ml @ 0 mls/hr Q24H IV 03/04/17 13:30 03/11/17 13:29 03/06/17 08:50 Heparin Sodium (Porcine) (Heparin 5000 units/ml) 5,000 units EVERY 12 HOURS SUBQ 03/04/17 21:00 04/03/17 20:59 03/06/17 09:14 Lorazepam (Ativan 2mg/ml 1ml) 1 mg Q4H PRN IV For Anxiety 03/04/17 09:30 03/11/17 09:29 03/06/17 10:33 Midazolam HCl (Versed 2mg/2ml vial) 1 mg Q2H PRN IVP agitation 03/04/17 11:45 04/03/17 11:44 03/06/17 08:04 Pantoprazole (Protonix) 40 mg Q12HR IVP 03/04/17 21:00 04/03/17 20:59 03/06/17 09:13 Piperacillin Sod/ Tazobactam Sod 3.375 gm/Dextrose 55 ml @ 13.75 mls/ hr EVERY 12 HOURS IVPB 03/04/17 21:00 03/11/17 20:59 03/06/17 09:14 Potassium Phosphate 30 mm/ Sodium Chloride 285 ml @ 47.5 mls/hr ONCE ONCE IV 03/06/17 11:00 03/06/17 16:59 03/06/17 10:34 Vancomycin HCl (Vanco rx to dose) 1 ea DAILY PRN MISC Per rx protocol 03/04/17 08:45 04/03/17 08:44 Vancomycin/Sodium Chloride 250 ml @ 166.667 mls/hr Q12HR@1100,2300 IVPB 03/06/17 11:00 03/11/17 10:59 03/06/17 10:33 NATALY STEPHENSON M.D. Mar 06, 2017 11:44
--- NOTE | 2017-03-06 12:52 | Nephrology Progress Note ---
Assessment/Plan Problem List: (1) Respiratory disorder with ventilator dependence (2) UTI (urinary tract infection) (3) Hypernatremia (4) Acute renal failure Assessment - Acute renal failure cr 1.1 to 2.4 to 2.1 to 1.9 - Chronic paranoid schizophrenia - Respiratory disorder with ventilator dependence - Healthcare associated bacterial pneumonia - UTI (urinary tract infection) - SIRS (systemic inflammatory response syndrome) - Alzheimer disease - Hypokalemia - Hypernatremia / due to water deficit improving with D5 resolving Plan plan: D5W continue- Pulm support antibiotics monitor renal parameters K Phos IV per orders Subjective ROS Limited/Unobtainable: Yes Objective Objective Last 24 Hour Vital Signs Date Time Temp Pulse Resp B/P (MAP) Pulse Ox O2 Delivery O2 Flow Rate FiO2 03/06/17 12:00 114 03/06/17 12:00 99.6 114 30 97/57 93 Mechanical Ventilator 60 03/06/17 12:00 30 03/06/17 12:00 60 03/06/17 11:00 30 03/06/17 11:00 118 33 95/61 94 Mechanical Ventilator 60 03/06/17 10:56 121 44 45 03/06/17 10:33 33 03/06/17 10:00 119 34 103/70 95 Mechanical Ventilator 45 03/06/17 09:30 101.0 03/06/17 09:23 113 34 45 03/06/17 09:13 101.0 03/06/17 09:00 124 40 98/67 94 Mechanical Ventilator 45 03/06/17 08:50 40 03/06/17 08:00 45 03/06/17 08:00 102.6 125 40 116/76 94 Mechanical Ventilator 50 03/06/17 08:00 116 03/06/17 07:52 112 30 100 Mechanical Ventilator 45 03/06/17 07:26 106 30 100 Mechanical Ventilator 45 03/06/17 07:25 108 30 45 03/06/17 07:00 118 37 112/66 95 Mechanical Ventilator 50 03/06/17 06:00 119 36 108/63 100 Mechanical Ventilator 50 03/06/17 05:00 126 37 101/70 100 Mechanical Ventilator 50 03/06/17 04:39 126 44 45 03/06/17 04:00 99.2 132 30 117/70 100 Mechanical Ventilator 50 03/06/17 04:00 45 03/06/17 04:00 132 03/06/17 03:29 131 48 45 03/06/17 03:00 118 33 101/72 100 Mechanical Ventilator 50 03/06/17 02:00 118 35 110/78 100 Mechanical Ventilator 50 03/06/17 01:20 116 39 100 Mechanical Ventilator 45 03/06/17 01:02 118 48 100 Mechanical Ventilator 45 03/06/17 01:01 119 50 45 03/06/17 01:00 119 28 109/74 100 Mechanical Ventilator 50 03/06/17 00:00 118 03/06/17 00:00 45 03/06/17 00:00 98.4 118 31 123/73 100 Mechanical Ventilator 50 03/05/17 23:13 122 40 45 03/05/17 23:00 113 33 123/73 100 Mechanical Ventilator 50 03/05/17 22:00 118 36 118/82 100 Mechanical Ventilator 50 03/05/17 21:10 114 32 45 03/05/17 21:00 115 31 109/72 100 Mechanical Ventilator 50 03/05/17 20:00 107 03/05/17 20:00 45 03/05/17 20:00 98.8 107 29 142/77 100 Mechanical Ventilator 50 03/05/17 19:40 104 26 100 Mechanical Ventilator 45 03/05/17 19:25 101 28 100 Mechanical Ventilator 45 03/05/17 19:24 101 28 45 03/05/17 19:00 100 22 119/79 100 Mechanical Ventilator 50 03/05/17 18:00 104 31 111/72 99 Mechanical Ventilator 50 03/05/17 17:17 103 27 50 03/05/17 17:00 101 25 112/72 99 Mechanical Ventilator 50 03/05/17 16:00 102 03/05/17 16:00 50 03/05/17 16:00 98.6 102 26 100/74 100 Mechanical Ventilator 50 03/05/17 15:20 104 26 50 03/05/17 15:00 104 27 104/70 98 Mechanical Ventilator 50 03/05/17 14:00 106 33 98/69 100 Mechanical Ventilator 50 03/05/17 13:13 104 26 100 Mechanical Ventilator 03/05/17 13:07 102 25 100 Mechanical Ventilator 50 03/05/17 13:06 102 28 50 03/05/17 13:00 104 20 115/78 100 Mechanical Ventilator 50 Intake and Output 03/05/17 03/06/17 19:00 07:00 Intake Total 1928.00 ml 1855.00 ml Output Total 630 ml 590 ml Balance 1298.00 ml 1265.00 ml IV Total 1928.00 ml 1855.00 ml Output Urine Total 630 ml 590 ml Laboratory Tests 03/05/17 17:45: Troponin I 0.336H 03/05/17 21:30: Vancomycin Level Trough 21.6H 03/06/17 05:00: Troponin I 0.376H, White Blood Count 14.2H, Red Blood Count 4.82, Hemoglobin 13.8L, Hematocrit 45.1, Mean Corpuscular Volume 94, Mean Corpuscular Hemoglobin 28.6, Mean Corpuscular Hemoglobin Concent 30.5L, Red Cell Distribution Width 13.4, Platelet Count 131L, Mean Platelet Volume 9.3, Neutrophils (%) (Auto) 82.9H, Lymphocytes (%) (Auto) 9.4L, Monocytes (%) (Auto) 6.6, Eosinophils (%) ( Auto) 0.5, Basophils (%) (Auto) 0.5, Sodium Level 148H, Potassium Level 3.5, Chloride Level 116H, Carbon Dioxide Level 19L, Anion Gap 14, Blood Urea Nitrogen 23H, Creatinine 1.9H, Estimat Glomerular Filtration Rate 42.8, Glucose Level 160H, Uric Acid 5.9, Calcium Level 6.9L, Phosphorus Level 1.6L, Magnesium Level 1.8, Total Bilirubin 1.7H, Direct Bilirubin 0.7H, Aspartate Amino Transf ( AST/SGOT) 101H, Alanine Aminotransferase (ALT/SGPT) 45, Alkaline Phosphatase 86 , Total Creatine Kinase 6957H, C-Reactive Protein, Quantitative 21.0H, Pro-B- Type Natriuretic Peptide 255H, Total Protein 6.5, Albumin 2.0L, Globulin 4.5, Albumin/Globulin Ratio 0.4L Height (Feet): 5 Height (Inches): 9.00 Weight (Pounds): 130 General Appearance: no apparent distress Objective no change CHACHA NUNES Mar 06, 2017 12:52
[2017-03-06] MEDS ORDERED: Sodium Chloride 500ML 550 ML IV ONE (14:10)
[2017-03-06] MEDS: Aspirin Baby 81mg NG SCH (15:12)
[2017-03-06] MEDS ORDERED: D5 1/2NS 1000ml IV ONE (17:42)
[2017-03-06] MEDS ORDERED: Tubing IV Secondary IV ONE (17:42)
[2017-03-06] MEDS ORDERED: NS 500ML ONE (17:42)
--- NOTE | 2017-03-06 19:45 | Consultation ---
DATE OF CONSULTATION: 03/05/2017 CARDIOLOGY CONSULTATION CONSULTING PHYSICIAN: Manuel Manning M.D. REQUESTING PHYSICIAN: Colton Charles M.D. REASON FOR CONSULTATION: Elevated troponin level and hypotension. HISTORY OF PRESENT ILLNESS: This is a 71-year-old male, who resides at a [facility] facility. He was admitted to the hospital several days ago with shortness of breath. The patient resides at a [facility] facility and has schizophrenia, so historical data is limited. He was also febrile and had signs of dehydration since admission. The patient has been on hydration with IV fluids, antimicrobials, and respiratory hygiene. Today, blood pressure parameters are decreasing and elevated troponin levels prompting this consultation. The patient remains orally intubated and mechanically ventilated due to hypoxia and respiratory failure soon after his presentation. PAST MEDICAL HISTORY: COPD, gastroesophageal reflux disease, hypertension, dementia, and schizoaffective disorder. MEDICATIONS: Prior to admission reviewed. Current hospital medications reviewed. ALLERGIES: None. SOCIAL HISTORY: No available data regarding smoking, alcohol, or substance abuse. REVIEW OF SYSTEMS: Not obtainable. However, available data from review of [facility] records is performed and outlined above. PHYSICAL EXAMINATION: GENERAL: Orally intubated, mechanically ventilated, noncommunicative, and unresponsive. VITAL SIGNS: Blood pressure 90/60, pulse 118, respiratory rate 32, and temperature maximum 101 degrees, presently 99.6 degrees. HEENT: Temporal wasting. Dry mucous membranes. Bilateral rhonchi. Regular rhythm. Rapid rate. Normal S1 and S2. No murmur. ABDOMEN: Soft. There is no edema. LABORATORY AND DIAGNOSTIC DATA: EKG on admission revealed sinus tachycardia with no abnormalities. CK is 6957. Troponin is 0.376. Albumin 2.0. BUN 23 and creatinine 1.9. Magnesium 1.8. Phosphorus 1.6. Potassium 3.5, sodium 148, chloride 116, and bicarbonate 19. White count 14.2 and hemoglobin 13.8. Blood cultures are positive with Gram-positive cocci. IMPRESSION: 1. Acute hypoxic respiratory failure. 2. Healthcare-acquired pneumonia. 3. Bacteremia. 4. Sepsis. 5. Shock. 6. Acute myocardial ischemia and possible non-ST elevation infarction. 7. Dehydration. 8. Hypernatremia. 9. Hyperchloremia. 10. Hypophosphatemia. 11. Rhabdomyolysis. 12. History of chronic obstructive pulmonary disease. 13. Acute renal failure, resolving. 14. Severe protein-calorie malnutrition. PLAN: 1. Ventilator support. 2. Antimicrobials. 3. Respiratory hygiene. 4. Hypotonic IV fluid hydration. 5. Volume resuscitation and attempt to avoid pressors. 6. DVT prophylaxis. 7. Antiplatelet therapy with aspirin. 8. Replace phosphorus. 9. Protein supplement by feeding tube. Manuel Manning M.D. DR: Delicia JOB#: [id number] CC: LESA
[2017-03-06] MEDS: fentaNYL Citrate 2500mcg in NS 250ml IV SCH (20:11)
[2017-03-06] MEDS ORDERED: Dyna-Hex 2% Top Sol 2oz TOPIC SCH (23:30)
[2017-03-07] VITALS (33 sets, daily range): BP systolic 84–128; BP diastolic 49–82
[2017-03-07] MEDS: Albuterol/Ipratropium 3ml neb HHN SCH ×4 (00:52→19:48)
[2017-03-07] MEDS: LORazepam Inj 2mg/ml 1ml IV PRN (03:15)
--- NOTE | 2017-03-07 08:00 | Progress Note ---
DATE: 03/06/2017 CARDIOLOGY PROGRESS NOTE SUBJECTIVE: The patient remains in the intensive care unit. Condition remains critical. Prognosis guarded. The patient remains on ventilator support. He is sedated. He continues to have fevers. OBJECTIVE: VITAL SIGNS: Blood pressure 116/76, pulse 125, respiratory rate 40, temperature 102.6. LUNGS: Coarse breath sounds. Scattered rhonchi. HEART: Regular rhythm. Rapid rate. Normal S1, S2. ABDOMEN: Soft. EXTREMITIES: No edema. Contractures noted. LABORATORY DATA: White count 14, hemoglobin 13.8. BUN 23, creatinine 1.9, sodium 148, bicarbonate 19. Troponin 0.376. IMPRESSION: 1. Critical condition. 2. Guarded prognosis. 3. Sepsis with shock. 4. Healthcare-acquired pneumonia. 5. Dehydration. 6. Hypovolemia. 7. Hypernatremia. 8. Metabolic acidosis. 9. Hypomagnesemia. 10. Acute on chronic renal failure, improved. 11. Acute myocardial infarction. PLAN: 1. Antimicrobials. 2. Ventilator support. 3. IV magnesium. 4. Free water replacement. 5. Antiplatelet therapy. 6. Nutrition and protein supplement diet via feeding tube. 7. DVT prophylaxis. 8. Avoid beta-blockers in view of current hypotensive trend. Michael Nicole JOB#: [id number] CC:
[2017-03-07] MEDS: Piperacillin/Tazobactam 3.375 GM in D5W 55 ML IVPB SCH (08:17)
[2017-03-07] MEDS: Pantoprazole Inj IVP SCH ×2 (08:17→20:33)
[2017-03-07] MEDS: Aspirin Baby 81mg NG SCH (08:17)
[2017-03-07] MEDS: Heparin 5000 units/ml inj SUBQ SCH ×2 (08:22→20:33)
--- NOTE | 2017-03-07 09:15 | Pulmonolgy Critical Care Note ---
Critical Care - Asmt/Plan Problems: (1) Chronic paranoid schizophrenia (2) [facility] resident (3) Respiratory disorder with ventilator dependence (4) Healthcare associated bacterial pneumonia (5) UTI (urinary tract infection) (6) SIRS (systemic inflammatory response syndrome) (7) Alzheimer disease (8) Hypokalemia (9) Hypernatremia (10) Gram-positive bacteremia Assessment/Plan: -Continue SBT --> hold sedations --> F/U ABG in 1 hour, if gas exchange adequate and patient awake will extubate -Titrate down FiO2 to keep SaO2 > 90% -Optimize pulmonary hygiene/mobilize as tolerated -RTC and PRN HHN's -Frequent inline suctioning -Monitor volumes -Continue D5W per renal, ? switch to NS now that free water deficit corrected -Monitor electrolytes and adjust accordingly -Abx per ID, F/U Cx's -Abdominal US -Monitor MS, PRN sedation only -Hep SQ -PPI -If patient not extubated will start NGT feeds -FC, continue to address GOC CC (45) Critical Care - Objective Last 24 Hour Vital Signs Date Time Temp Pulse Resp B/P (MAP) Pulse Ox O2 Delivery O2 Flow Rate FiO2 03/07/17 08:47 97 23 60 03/07/17 08:00 25 03/07/17 08:00 99.8 101 25 90/55 100 Mechanical Ventilator 50 03/07/17 07:40 50 03/07/17 07:26 98 18 100 Mechanical Ventilator 50 03/07/17 07:19 50 03/07/17 07:17 99 26 100 Mechanical Ventilator 50 03/07/17 07:16 99 26 60 03/07/17 07:00 101 21 90/60 99 Mechanical Ventilator 60 03/07/17 07:00 25 03/07/17 06:00 101 21 97/60 99 Mechanical Ventilator 60 03/07/17 06:00 21 03/07/17 05:04 106 31 60 03/07/17 05:00 27 03/07/17 05:00 104 21 95/58 99 Mechanical Ventilator 60 03/07/17 04:00 98.8 106 28 100/64 99 Mechanical Ventilator 60 03/07/17 04:00 29 03/07/17 04:00 107 03/07/17 04:00 60 03/07/17 03:23 102 32 60 03/07/17 03:00 116 36 128/66 96 Mechanical Ventilator 60 03/07/17 03:00 36 03/07/17 02:00 108 31 90/55 96 Mechanical Ventilator 60 03/07/17 02:00 31 03/07/17 01:08 107 30 60 03/07/17 01:00 108 31 94/55 97 Mechanical Ventilator 60 03/07/17 01:00 29 03/07/17 00:53 Mechanical Ventilator 60 03/07/17 00:53 Mechanical Ventilator 60 03/07/17 00:00 98.8 107 28 94/57 99 Mechanical Ventilator 60 03/07/17 00:00 60 03/07/17 00:00 31 03/07/17 00:00 107 03/06/17 23:12 107 29 60 03/06/17 23:00 107 28 96/57 100 Mechanical Ventilator 60 03/06/17 23:00 29 03/06/17 22:00 107 28 96/55 100 Mechanical Ventilator 60 03/06/17 22:00 34 03/06/17 21:30 102 28 92/52 100 Mechanical Ventilator 60 03/06/17 21:25 105 32 60 03/06/17 21:00 33 03/06/17 21:00 102 28 112/72 100 Mechanical Ventilator 60 03/06/17 20:41 98.2 03/06/17 20:11 26 03/06/17 20:00 102 03/06/17 20:00 60 03/06/17 20:00 27 03/06/17 20:00 98.2 101 28 95/61 99 Mechanical Ventilator 60 03/06/17 19:28 103 35 94 Mechanical Ventilator 60 03/06/17 19:28 Mechanical Ventilator 60 03/06/17 19:08 100 39 60 03/06/17 19:00 33 03/06/17 19:00 106 28 97/67 92 Mechanical Ventilator 60 03/06/17 18:00 28 03/06/17 18:00 107 28 91/57 93 Mechanical Ventilator 60 03/06/17 17:07 107 29 60 03/06/17 17:00 32 03/06/17 17:00 109 30 92/63 93 Mechanical Ventilator 60 03/06/17 16:00 110 03/06/17 16:00 99.6 110 31 92/56 92 Mechanical Ventilator 60 03/06/17 16:00 60 03/06/17 16:00 31 03/06/17 15:30 109 31 60 03/06/17 15:00 30 03/06/17 15:00 109 27 100/47 98 Mechanical Ventilator 60 03/06/17 14:10 34 03/06/17 14:00 112 28 81/56 94 Mechanical Ventilator 60 03/06/17 13:49 110 27 96 Mechanical Ventilator 60 03/06/17 13:33 101 30 92 Mechanical Ventilator 60 03/06/17 13:31 108 30 60 03/06/17 13:00 110 18 86/50 97 Mechanical Ventilator 60 03/06/17 13:00 19 03/06/17 12:00 114 03/06/17 12:00 99.6 114 30 97/57 93 Mechanical Ventilator 60 03/06/17 12:00 30 03/06/17 12:00 60 03/06/17 11:00 30 03/06/17 11:00 118 33 95/61 94 Mechanical Ventilator 60 03/06/17 10:56 121 44 45 03/06/17 10:33 33 03/06/17 10:00 119 34 103/70 95 Mechanical Ventilator 45 03/06/17 09:30 101.0 03/06/17 09:23 113 34 45 03/06/17 09:13 101.0 Status: sedated, other - intubated, NGT Condition: improving HEENT: atraumatic, normocephalic, other - ETT, NGT Lungs: clear Heart: HR/BP stable Abdomen: soft, non-tender, active bowel sounds Extremities: no C/C/E Micro: Microbiology Date/Time Source Procedure Growth Status 03/05/17 09:00 Sputum Gram Stain - Final Resulted 03/05/17 09:00 Sputum Culture - Preliminary Gram Negative Socrates Resulted 03/04/17 15:30 Urine,Clean Catch Urine Culture - Final NO GROWTH AFTER 48 HOURS Complete Critical Care - Subjective ROS Limited/Unobtainable: Yes ICU Day: 5 Intubation Day: 5 Interval Events: [place] SBT, FiO2 40 Fentanyl held for possible extubation Lethargic but arousable No sig secretions AML pending Condition: critical IV Access: central - R femoral EKG Rhythm: Sinus Rhythm FI02: 60 Vent Support Breath Rate: 16 Vent Support Mode: AC Vent Tidal Volume: 450 Sputum Amount: None PEEP: 5.0 PIP: 17 Fluids: D5W @ 100 Drips: Fentanyl gtt I&O: Intake and Output 03/06/17 03/07/17 19:00 07:00 Intake Total 1826.75 ml 1352.600 ml Output Total 610 ml 640 ml Balance 1216.75 ml 712.600 ml IV Total 1826.75 ml 1352.600 ml Output Urine Total 610 ml 640 ml # Bowel Movements 1 Subjective: Not obtainable ET-Tube: 7.5 ET Position: 25 Labs: Laboratory Tests Test 03/06/17 18:10 Troponin I 0.278 ng/mL (0.000-0.056) LEIDA LANDIN M.D. Mar 07, 2017 09:14
[2017-03-07] MEDS ORDERED: Tubing IV Secondary IV ONE ×2 (10:25→15:30)
[2017-03-07] MEDS ORDERED: NS 500ML ONE ×2 (10:25→15:30)
[2017-03-07] MEDS ORDERED: NS 275ml ONE (10:25)
--- NOTE | 2017-03-07 10:43 | Nephrology Progress Note ---
Assessment/Plan Problem List: (1) Respiratory disorder with ventilator dependence (2) UTI (urinary tract infection) (3) Hypernatremia (4) Acute renal failure Assessment - Acute renal failure cr 1.1 to 2.4 to 2.1 to 1.9 - Chronic paranoid schizophrenia - Respiratory disorder with ventilator dependence - Healthcare associated bacterial pneumonia - UTI (urinary tract infection) - SIRS (systemic inflammatory response syndrome) - Alzheimer disease - Hypokalemia - Hypernatremia / due to water deficit improving with D5 resolving Plan plan: no labs yet D5W continue- Pulm support antibiotics monitor renal parameters K Phos IV per orders Subjective ROS Limited/Unobtainable: Yes Objective Objective Last 24 Hour Vital Signs Date Time Temp Pulse Resp B/P (MAP) Pulse Ox O2 Delivery O2 Flow Rate FiO2 03/07/17 08:47 97 23 60 03/07/17 08:00 25 03/07/17 08:00 99.8 101 25 90/55 100 Mechanical Ventilator 50 03/07/17 08:00 97 03/07/17 07:40 50 03/07/17 07:26 98 18 100 Mechanical Ventilator 50 03/07/17 07:19 50 03/07/17 07:17 99 26 100 Mechanical Ventilator 50 03/07/17 07:16 99 26 60 03/07/17 07:00 101 21 90/60 99 Mechanical Ventilator 60 03/07/17 07:00 25 03/07/17 06:00 101 21 97/60 99 Mechanical Ventilator 60 03/07/17 06:00 21 03/07/17 05:04 106 31 60 03/07/17 05:00 27 03/07/17 05:00 104 21 95/58 99 Mechanical Ventilator 60 03/07/17 04:00 98.8 106 28 100/64 99 Mechanical Ventilator 60 03/07/17 04:00 29 03/07/17 04:00 107 03/07/17 04:00 60 03/07/17 03:23 102 32 60 03/07/17 03:00 116 36 128/66 96 Mechanical Ventilator 60 03/07/17 03:00 36 03/07/17 02:00 108 31 90/55 96 Mechanical Ventilator 60 03/07/17 02:00 31 03/07/17 01:08 107 30 60 03/07/17 01:00 108 31 94/55 97 Mechanical Ventilator 60 03/07/17 01:00 29 03/07/17 00:53 Mechanical Ventilator 60 03/07/17 00:53 Mechanical Ventilator 60 03/07/17 00:00 98.8 107 28 94/57 99 Mechanical Ventilator 60 03/07/17 00:00 60 03/07/17 00:00 31 03/07/17 00:00 107 03/06/17 23:12 107 29 60 03/06/17 23:00 107 28 96/57 100 Mechanical Ventilator 60 03/06/17 23:00 29 03/06/17 22:00 107 28 96/55 100 Mechanical Ventilator 60 03/06/17 22:00 34 03/06/17 21:30 102 28 92/52 100 Mechanical Ventilator 60 03/06/17 21:25 105 32 60 03/06/17 21:00 33 03/06/17 21:00 102 28 112/72 100 Mechanical Ventilator 60 03/06/17 20:41 98.2 03/06/17 20:11 26 03/06/17 20:00 102 03/06/17 20:00 60 03/06/17 20:00 27 03/06/17 20:00 98.2 101 28 95/61 99 Mechanical Ventilator 60 03/06/17 19:28 103 35 94 Mechanical Ventilator 60 03/06/17 19:28 Mechanical Ventilator 60 03/06/17 19:08 100 39 60 03/06/17 19:00 33 03/06/17 19:00 106 28 97/67 92 Mechanical Ventilator 60 03/06/17 18:00 28 03/06/17 18:00 107 28 91/57 93 Mechanical Ventilator 60 03/06/17 17:07 107 29 60 03/06/17 17:00 32 03/06/17 17:00 109 30 92/63 93 Mechanical Ventilator 60 03/06/17 16:00 110 03/06/17 16:00 99.6 110 31 92/56 92 Mechanical Ventilator 60 03/06/17 16:00 60 03/06/17 16:00 31 03/06/17 15:30 109 31 60 03/06/17 15:00 30 03/06/17 15:00 109 27 100/47 98 Mechanical Ventilator 60 03/06/17 14:10 34 03/06/17 14:00 112 28 81/56 94 Mechanical Ventilator 60 03/06/17 13:49 110 27 96 Mechanical Ventilator 60 03/06/17 13:33 101 30 92 Mechanical Ventilator 60 03/06/17 13:31 108 30 60 03/06/17 13:00 110 18 86/50 97 Mechanical Ventilator 60 03/06/17 13:00 19 03/06/17 12:00 114 03/06/17 12:00 99.6 114 30 97/57 93 Mechanical Ventilator 60 03/06/17 12:00 30 03/06/17 12:00 60 03/06/17 11:00 30 03/06/17 11:00 118 33 95/61 94 Mechanical Ventilator 60 03/06/17 10:56 121 44 45 Intake and Output 03/06/17 03/07/17 19:00 07:00 Intake Total 1826.75 ml 1352.600 ml Output Total 610 ml 640 ml Balance 1216.75 ml 712.600 ml IV Total 1826.75 ml 1352.600 ml Output Urine Total 610 ml 640 ml # Bowel Movements 1 Laboratory Tests 03/06/17 18:10: Troponin I 0.278H Height (Feet): 5 Height (Inches): 9.00 Weight (Pounds): 130 General Appearance: no apparent distress Objective no change CHACHA NUNES Mar 07, 2017 10:43
[2017-03-07] MEDS: Vancomycin 750mg/NS 250ml IVPB SCH ×2 (11:26→23:20)
[2017-03-07 12:24] LABS: BASOPHILS % (AUTO) 0.2 % (0.0-2.0); HEMATOCRIT 34.9 % (42.0-52.0); HEMOGLOBIN 10.6 G/DL (14.2-18.0); MEAN CORPUSCULAR VOLUME 94 FL (80-99); MONOCYTES % (AUTO) 5.8 % (1.0-10.0); NEUTROPHILS % (AUTO) 83.9 % (45.0-75.0); PLATELET COUNT 115 K/UL (150-450); RED BLOOD COUNT 3.73 M/UL (4.70-6.10); WHITE BLOOD COUNT 14.1 K/UL (4.8-10.8)
[2017-03-07 12:56] LABS: ANION GAP 6 mmol/L (5-15); BLOOD UREA NITROGEN 17 mg/dL (7-18); CALCIUM 6.4 MG/DL (8.5-10.1); CARBON DIOXIDE 22 MMOL/L (21-32); CHLORIDE 106 MMOL/L (98-107); CREATININE 1.5 MG/DL (0.55-1.30); POTASSIUM 3.1 MMOL/L (3.5-5.1); SODIUM 134 MMOL/L (136-145)
[2017-03-07 13:10] LABS: ALANINE AMINOTRANSFERASE 30 U/L (12-78); ALBUMIN 1.4 G/DL (3.4-5.0); ALBUMIN/GLOBULIN RATIO 0.4 (1.0-2.7); ALKALINE PHOSPHATASE 61 U/L (46-116); ASPARTATE AMINO TRANSFERASE 61 U/L (15-37); BILIRUBIN,TOTAL 1.1 MG/DL (0.2-1.0); CKMB 1.5 NG/ML (0.0-3.6); CREATINE KINASE 1676 U/L (26-308)
[2017-03-07 13:12] LABS: BILIRUBIN,DIRECT 0.7 MG/DL (0.0-0.3)
[2017-03-07] MEDS: D5NS 1,000 ML IV SCH (14:18)
--- NOTE | 2017-03-07 15:11 | Cardiology Report ---
APPROVED REPORT EKG Measurement Heart Agdn508ACEF IN 134P32 [id number] Sinus tachycardia Otherwise normal ECG
[2017-03-07] MEDS ORDERED: D5NS 1000ml IV ONE (15:30)
[2017-03-07] MEDS: Meropenem 1gm in NS 55ml IVPB SCH (17:26)
[2017-03-07] MEDS ORDERED: Piperacillin/Tazobactam 3.375 GM in D5W 55 ML IVPB SCH (18:00)
[2017-03-07] MEDS: fentaNYL Citrate 2500mcg in NS 250ml IV SCH (20:23)
--- NOTE | 2017-03-07 20:30 | General Progress Note ---
Assessment/Plan Assessment/Plan Assessment/Plan 1. VDRF 2. Sepsis. 2. Healthcare-associated pneumonia (?) 3. Acute hypoxemic respiratory failure. 4. Acute anemia. 5. Hypokalemia. 6. Hypernatremia. 7. Urinary tract infection-healthcare related. 8. Gastrointestinal and deep vein thrombosis prophylaxis. 9. Abnormal Troponin Subjective Allergies: Coded Allergies: No Known Allergies (Unverified , 10/20/16) All Systems: reviewed and negative except above Subjective vent Objective Last 24 Hour Vital Signs Date Time Temp Pulse Resp B/P (MAP) Pulse Ox O2 Delivery O2 Flow Rate FiO2 03/07/17 20:23 28 03/07/17 20:06 98 16 100 Mechanical Ventilator 50 03/07/17 19:51 50 03/07/17 19:50 98 16 100 Mechanical Ventilator 50 03/07/17 19:44 98 34 50 03/07/17 19:00 97 27 97/62 100 Mechanical Ventilator 50 03/07/17 18:30 98 29 92/58 100 Mechanical Ventilator 50 03/07/17 18:00 27 03/07/17 18:00 98 34 90/59 98 Mechanical Ventilator 50 03/07/17 17:30 98 28 98/58 99 Mechanical Ventilator 50 03/07/17 17:00 97 36 107/57 98 Mechanical Ventilator 50 03/07/17 17:00 26 03/07/17 16:55 95 25 40 03/07/17 16:30 95 26 92/54 100 Mechanical Ventilator 50 03/07/17 16:00 98.7 95 26 103/76 100 Mechanical Ventilator 50 03/07/17 16:00 29 03/07/17 16:00 98 03/07/17 15:18 98 23 40 03/07/17 15:00 98 25 89/56 100 Mechanical Ventilator 50 03/07/17 15:00 24 03/07/17 14:00 96 26 90/53 100 Mechanical Ventilator 50 03/07/17 14:00 29 03/07/17 13:30 98 34 91/49 99 Mechanical Ventilator 50 03/07/17 13:00 27 03/07/17 13:00 98 27 85/54 100 Mechanical Ventilator 50 03/07/17 12:57 100 19 100 Mechanical Ventilator 50 03/07/17 12:49 100 22 100 Mechanical Ventilator 50 03/07/17 12:49 50 03/07/17 12:47 100 22 40 03/07/17 12:30 95 31 115/70 97 Mechanical Ventilator 50 03/07/17 12:30 50 03/07/17 12:00 93 03/07/17 12:00 40 03/07/17 12:00 24 03/07/17 12:00 98.9 94 24 89/51 98 Mechanical Ventilator 50 03/07/17 11:30 94 28 110/66 98 Mechanical Ventilator 50 03/07/17 11:13 95 24 40 03/07/17 11:00 22 03/07/17 11:00 94 23 110/66 98 Mechanical Ventilator 50 03/07/17 10:30 96 23 87/58 99 Mechanical Ventilator 50 03/07/17 10:00 96 23 87/58 98 Mechanical Ventilator 50 03/07/17 10:00 22 03/07/17 09:30 96 24 91/53 99 Mechanical Ventilator 50 03/07/17 09:15 40 03/07/17 09:00 97 23 84/59 100 Mechanical Ventilator 50 03/07/17 09:00 25 03/07/17 08:47 97 23 60 03/07/17 08:30 99 25 95/53 100 Mechanical Ventilator 50 03/07/17 08:00 25 03/07/17 08:00 99.8 101 25 90/55 100 Mechanical Ventilator 50 03/07/17 08:00 97 03/07/17 07:40 50 03/07/17 07:26 98 18 100 Mechanical Ventilator 50 03/07/17 07:19 50 03/07/17 07:17 99 26 100 Mechanical Ventilator 50 03/07/17 07:16 99 26 60 03/07/17 07:00 101 21 90/60 99 Mechanical Ventilator 60 03/07/17 07:00 25 03/07/17 06:00 101 21 97/60 99 Mechanical Ventilator 60 03/07/17 06:00 21 03/07/17 05:04 106 31 60 03/07/17 05:00 27 03/07/17 05:00 104 21 95/58 99 Mechanical Ventilator 60 03/07/17 04:00 98.8 106 28 100/64 99 Mechanical Ventilator 60 03/07/17 04:00 29 03/07/17 04:00 107 03/07/17 04:00 60 03/07/17 03:23 102 32 60 03/07/17 03:00 116 36 128/66 96 Mechanical Ventilator 60 03/07/17 03:00 36 03/07/17 02:00 108 31 90/55 96 Mechanical Ventilator 60 03/07/17 02:00 31 03/07/17 01:08 107 30 60 03/07/17 01:00 108 31 94/55 97 Mechanical Ventilator 60 03/07/17 01:00 29 03/07/17 00:53 Mechanical Ventilator 60 03/07/17 00:53 Mechanical Ventilator 60 03/07/17 00:00 98.8 107 28 94/57 99 Mechanical Ventilator 60 03/07/17 00:00 60 03/07/17 00:00 31 03/07/17 00:00 107 03/06/17 23:12 107 29 60 03/06/17 23:00 107 28 96/57 100 Mechanical Ventilator 60 03/06/17 23:00 29 03/06/17 22:00 107 28 96/55 100 Mechanical Ventilator 60 03/06/17 22:00 34 03/06/17 21:30 102 28 92/52 100 Mechanical Ventilator 60 03/06/17 21:25 105 32 60 03/06/17 21:00 33 03/06/17 21:00 102 28 112/72 100 Mechanical Ventilator 60 03/06/17 20:41 98.2 Intake and Output 03/06/17 03/07/17 19:00 07:00 Intake Total 1826.75 ml 1352.600 ml Output Total 610 ml 640 ml Balance 1216.75 ml 712.600 ml IV Total 1826.75 ml 1352.600 ml Output Urine Total 610 ml 640 ml # Bowel Movements 1 Laboratory Tests 03/07/17 11:20: White Blood Count 14.1H, Red Blood Count 3.73L, Hemoglobin 10.6L, Hematocrit 34.9L, Mean Corpuscular Volume 94, Mean Corpuscular Hemoglobin 28.5, Mean Corpuscular Hemoglobin Concent 30.5L, Red Cell Distribution Width 13.0, Platelet Count 115L, Mean Platelet Volume 10.3H, Neutrophils (%) (Auto) 83.9H, Lymphocytes (%) (Auto) 9.0L, Monocytes (%) (Auto) 5.8, Eosinophils (%) (Auto) 1.0, Basophils (%) (Auto) 0.2, Sodium Level 134L, Potassium Level 3.1L, Chloride Level 106, Carbon Dioxide Level 22, Anion Gap 6, Blood Urea Nitrogen 17 , Creatinine 1.5H, Estimat Glomerular Filtration Rate 56.2, Glucose Level 384#H , Calcium Level 6.4L, Total Bilirubin 1.1H, Direct Bilirubin 0.7H, Aspartate Amino Transf (AST/SGOT) 61H, Alanine Aminotransferase (ALT/SGPT) 30, Alkaline Phosphatase 61, Total Creatine Kinase 1676H, Creatine Kinase MB 1.5, Creatine Kinase MB Relative Index 0.0, Troponin I 0.197H, Pro-B-Type Natriuretic Peptide 731H, Total Protein 5.2L, Albumin 1.4L, Globulin 3.8, Albumin/Globulin Ratio 0.4L Height (Feet): 5 Height (Inches): 9.00 Weight (Pounds): 130 General Appearance: no apparent distress EENT: normal ENT inspection Neck: normal alignment Cardiovascular: normal peripheral pulses Neurologic: tandem mill sticker II-XII grossly normal Skin: normal pigmentation Justin Anthony Mar 07, 2017 20:30
[2017-03-07] MEDS: Dyna-Hex 2% Top Sol 2oz TOPIC SCH (20:33)
[2017-03-08] VITALS (41 sets, daily range): BP systolic 84–157; BP diastolic 38–78
--- NOTE | 2017-03-08 01:00 | Consultation ---
DATE OF CONSULTATION: 03/06/2017 NOTE: POOR AUDIO QUALITY HEMATOLOGY/ONCOLOGY CONSULTATION CONSULTING PHYSICIAN: Justin Anthony M.D. REQUESTING PHYSICIAN: Colton Charles M.D. REASON FOR CONSULTATION: Evaluation of thrombocytopenia. IDENTIFICATION DATA: Dear Dr. Charles, The patient is a pleasant 71-year-old male with past medical history significant for ____ senior living resident, COPD, GERD, hypertension, and schizoaffective disorder, has been seen by Dr. Manning. The patient has also been febrile and has had signs of dehydration since admission. Blood pressure decreased, elevated troponin levels were noted. Cardiology Service consulted. The patient has been seen by Dr. Manning. Further recommendations to follow thrombocytopenia. Hematology Service is consulted as well. Continue ventilator support. Continue heparin subcutaneously. We will start . PAST MEDICAL HISTORY: Hypertension, COPD, GI bleed, GERD, and dementia. MEDICATIONS: Currently reviewed in the hospital. SOCIAL HISTORY: No alcohol, tobacco, or illicit drug use. FAMILY HISTORY: Noncontributory. REVIEW OF SYSTEMS: Difficult to obtain. The patient is intubated. PHYSICAL EXAMINATION: VITAL SIGNS: Blood pressure is 120/70, temperature 101, pulse rate , respiratory rate 20, and O2 saturation 100%. GENERAL: No distress. PULMONARY: Decreased breath sounds. Intubated. CARDIOVASCULAR: Regular rate. No S3 or S4. ABDOMEN: Soft, nontender, and nondistended. EXTREMITIES: No cyanosis, swelling, or edema. NEUROLOGICAL: Lethargic, nonverbal. LABORATORY DATA: Hemoglobin 13.8 , WBC 14.2, and platelet count 131,000. INR 1.2. BUN 23 and creatinine 1.9. Total bilirubin is . We will check reticulocyte count. ASSESSMENT AND RECOMMENDATIONS: 1. Anemia, secondary to chronic disease. Continue to closely monitor. 2. Leukocytosis, secondary to underlying infection, has been seen by Dr. Fitz Cannon, currently improving. 3. Underlying pneumonia. Sputum culture negative. May need to rule out intra-abdominal sepsis. 4. Thrombocytopenia, potentially secondary to pneumonia. Continue to closely monitor. 5. Hypertension. 6. Osteoarthritis. 7. Dysphagia. 8. Sepsis, gram-positive cocci. 9. Elevation of troponin. Cardiology Service. 10. I appreciate the it support consultant care and continue to follow from medical perspective. Deep vein thrombosis prophylaxis. Heparin subcutaneously. I appreciate the consultation. Justin Anthony M.D. DR: Stefanie JOB#: [id number] CC:
[2017-03-08] MEDS: Albuterol/Ipratropium 3ml neb HHN SCH ×4 (01:19→20:54)
--- NOTE | 2017-03-08 04:00 | Progress Note ---
DATE: 03/07/2017 CARDIOLOGY PROGRESS NOTE SUBJECTIVE: The patient remains on ventilator support. Low-grade fevers are noted. OBJECTIVE: VITAL SIGNS: Marginal blood pressure at 90/55, heart rate 101, respiratory rate 25. LUNGS: Bilateral breath sounds. HEART: Regular rhythm and rate. Normal S1, S2 with a fourth heart sound. ABDOMEN: Soft, nontender. EXTREMITIES: No edema. LABORATORY STUDIES: White count 14, hemoglobin 10.6. Sodium 134, potassium 3.1, bicarbonate 22, BUN 17, creatinine 1.5, albumin 1.4. Troponin has decreased to 0.197. IMPRESSION: 1. Sepsis with shock. 2. Respiratory failure. 3. Acute myocardial infarction. 4. Severe protein-calorie malnutrition. 5. Acute diastolic congestive heart failure. 6. Hypokalemia. 7. Healthcare-acquired pneumonia. 8. Dehydration. 9. Hypovolemia and hypernatremia, resolved. 10. Remains critical and guarded. PLAN: 1. Antimicrobials. 2. Ventilator support. 3. Volume resuscitation. 4. Add beta-blockers once blood pressure more stable. 5. Continue the anti-platelet therapy. 6. DVT and stress ulcer prophylaxis. 7. Potassium replacement. 8. Check magnesium. Michael Nicole JOB#: [id number] CC:
[2017-03-08] MEDS: D5NS 1,000 ML IV SCH (05:01)
[2017-03-08] MEDS: Meropenem 1gm in NS 55ml IVPB SCH ×2 (05:01→18:03)
[2017-03-08 07:35] LABS: ANION GAP 8 mmol/L (5-15); BLOOD UREA NITROGEN 15 mg/dL (7-18); CARBON DIOXIDE 24 MMOL/L (21-32); CHLORIDE 118 MMOL/L (98-107); CREATININE 1.5 MG/DL (0.55-1.30); POTASSIUM 3.6 MMOL/L (3.5-5.1); SODIUM 150 MMOL/L (136-145)
[2017-03-08] MEDS: Heparin 5000 units/ml inj SUBQ SCH ×2 (09:00→20:39)
[2017-03-08] MEDS: Pantoprazole Inj IVP SCH ×2 (09:55→20:39)
[2017-03-08] MEDS: Aspirin Baby 81mg NG SCH (09:56)
[2017-03-08] MEDS: LORazepam Inj 2mg/ml 1ml IV PRN (10:08)
--- NOTE | 2017-03-08 10:41 | Pulmonolgy Critical Care Note ---
Critical Care - Asmt/Plan Problems: (1) Chronic paranoid schizophrenia (2) halfway resident (3) Respiratory disorder with ventilator dependence (4) Healthcare associated bacterial pneumonia (5) UTI (urinary tract infection) (6) SIRS (systemic inflammatory response syndrome) (7) Alzheimer disease (8) Hypokalemia (9) Hypernatremia (10) Gram-positive bacteremia Assessment/Plan: -Continue current vent settings --> Hold sedation and TF's @ 6 am tomorrow --> Start SBT at that time with PS8/PEEP 5 --> Check ABG 1 hour later, if gas exchange and RSBT acceptable and meets other extubation criterial (secretions manageable, able to protect airway, etc) will extubate tomorrow am -Titrate down FiO2 to keep SaO2 > 90% -Optimize pulmonary hygiene/mobilize as tolerated -RTC and PRN HHN's -Frequent inline suctioning -Monitor volumes -Continue D5NS per renal -Monitor electrolytes and adjust accordingly -Abx per ID, F/U Cx's -Abdominal US and trend LFT's -F/U cards recs -Monitor MS, PRN sedation only -Hep SQ -PPI -OGTF's -FC, continue to address GOC Will S/O to Kacy Gilliam, [facility]/[place] to re-assume care in am CC (45) Critical Care - Objective Last 24 Hour Vital Signs Date Time Temp Pulse Resp B/P (MAP) Pulse Ox O2 Delivery O2 Flow Rate FiO2 03/08/17 09:05 95 28 50 03/08/17 08:00 50 03/08/17 08:00 99.7 96 28 114/53 100 Mechanical Ventilator 50 03/08/17 07:30 92 28 100 Mechanical Ventilator 50 03/08/17 07:30 91 26 50 03/08/17 07:30 93 32 113/54 100 Mechanical Ventilator 50 03/08/17 07:20 92 29 100 Mechanical Ventilator 50 03/08/17 07:20 50 03/08/17 07:00 89 23 91/47 100 Mechanical Ventilator 50 03/08/17 07:00 21 03/08/17 06:00 88 21 98/49 100 Mechanical Ventilator 50 03/08/17 06:00 21 03/08/17 05:00 87 24 107/54 100 Mechanical Ventilator 50 03/08/17 05:00 29 03/08/17 04:37 83 25 50 03/08/17 04:00 98.8 97 24 94/50 100 Mechanical Ventilator 50 03/08/17 04:00 50 03/08/17 04:00 28 03/08/17 04:00 91 03/08/17 03:15 96 26 50 03/08/17 03:00 91 25 88/48 100 Mechanical Ventilator 50 03/08/17 03:00 28 03/08/17 02:00 28 03/08/17 02:00 98 25 117/62 100 Mechanical Ventilator 50 03/08/17 01:49 98.9 03/08/17 01:37 97 27 100 Mechanical Ventilator 50 03/08/17 01:21 50 03/08/17 01:20 97 25 100 Mechanical Ventilator 50 03/08/17 01:17 97 25 50 03/08/17 01:00 21 03/08/17 01:00 97 28 91/62 100 Mechanical Ventilator 50 03/08/17 00:00 21 03/08/17 00:00 98.9 97 22 116/62 100 Mechanical Ventilator 50 03/07/17 23:00 22 03/07/17 23:00 100 22 101/62 100 Mechanical Ventilator 50 03/07/17 22:00 102 36 107/82 100 Mechanical Ventilator 50 03/07/17 22:00 28 03/07/17 21:52 94 28 50 03/07/17 21:00 95 16 89/57 100 Mechanical Ventilator 50 03/07/17 21:00 28 03/07/17 20:53 98.7 03/07/17 20:23 28 03/07/17 20:06 98 16 100 Mechanical Ventilator 50 03/07/17 20:00 99.7 95 16 94/59 100 Mechanical Ventilator 50 03/07/17 20:00 96 03/07/17 20:00 16 03/07/17 20:00 50 03/07/17 19:51 50 03/07/17 19:50 98 16 100 Mechanical Ventilator 50 03/07/17 19:44 98 34 50 03/07/17 19:00 27 03/07/17 19:00 97 27 97/62 100 Mechanical Ventilator 50 03/07/17 18:30 98 29 92/58 100 Mechanical Ventilator 50 03/07/17 18:00 27 03/07/17 18:00 98 34 90/59 98 Mechanical Ventilator 50 03/07/17 17:30 98 28 98/58 99 Mechanical Ventilator 50 03/07/17 17:00 97 36 107/57 98 Mechanical Ventilator 50 03/07/17 17:00 26 03/07/17 16:55 95 25 40 03/07/17 16:30 95 26 92/54 100 Mechanical Ventilator 50 03/07/17 16:00 98.7 95 26 103/76 100 Mechanical Ventilator 50 03/07/17 16:00 29 03/07/17 16:00 98 03/07/17 15:18 98 23 40 03/07/17 15:00 98 25 89/56 100 Mechanical Ventilator 50 03/07/17 15:00 24 03/07/17 14:00 96 26 90/53 100 Mechanical Ventilator 50 03/07/17 14:00 29 03/07/17 13:30 98 34 91/49 99 Mechanical Ventilator 50 03/07/17 13:00 27 03/07/17 13:00 98 27 85/54 100 Mechanical Ventilator 50 03/07/17 12:57 100 19 100 Mechanical Ventilator 50 03/07/17 12:49 100 22 100 Mechanical Ventilator 50 03/07/17 12:49 50 03/07/17 12:47 100 22 40 03/07/17 12:30 95 31 115/70 97 Mechanical Ventilator 50 03/07/17 12:30 50 03/07/17 12:00 93 03/07/17 12:00 40 03/07/17 12:00 24 03/07/17 12:00 98.9 94 24 89/51 98 Mechanical Ventilator 50 03/07/17 11:30 94 28 110/66 98 Mechanical Ventilator 50 03/07/17 11:13 95 24 40 03/07/17 11:00 22 03/07/17 11:00 94 23 110/66 98 Mechanical Ventilator 50 Status: sedated Condition: critical HEENT: atraumatic, normocephalic, other - OGT< ETT Lungs: clear Heart: HR/BP stable Abdomen: soft, non-tender, active bowel sounds Extremities: no C/C/E Micro: Microbiology Date/Time Source Procedure Growth Status 03/06/17 18:00 Blood Blood Culture - Preliminary NO GROWTH AFTER 24 HOURS Resulted 03/06/17 18:00 Blood Blood Culture - Preliminary NO GROWTH AFTER 24 HOURS Resulted Critical Care - Subjective ROS Limited/Unobtainable: Yes ICU Day: 6 Intubation Day: 6 Interval Events: [place] SBT for a few hours yesterday then became tachypnic and agitated, currently on Fent gtt and just recieved a dose of Ativan Tm 99.8, AFVSS, stable on vent, FiO2 dec to 35, no sig secretions, helena OGTF's Condition: critical IV Access: central EKG Rhythm: Sinus Rhythm FI02: 50 Vent Support Breath Rate: 16 Vent Support Mode: AC Vent Tidal Volume: 450 Sputum Amount: Small PEEP: 5.0 PIP: 15 Fluids: D5NS@50 Drips: Fent Tube Feeding Amount: 30 I&O: Intake and Output 03/07/17 03/08/17 19:00 07:00 Intake Total 1622.00 ml 1017 ml Output Total 1080 ml 865 ml Balance 542.00 ml 152 ml Free Water 40 ml 125 ml IV Total 1482.00 ml 727 ml Tube Feeding 165 ml Other 100 ml Output Urine Total 1080 ml 865 ml Subjective: Not obtainable ET-Tube: 7.5 ET Position: 25 Labs: Laboratory Tests Test 03/07/17 11:20 03/08/17 05:00 03/08/17 09:50 White Blood Count 14.1 K/UL (4.8-10.8) H Red Blood Count 3.73 M/UL (4.70-6.10) L Hemoglobin 10.6 G/DL (14.2-18.0) L Hematocrit 34.9 % (42.0-52.0) L Mean Corpuscular Volume 94 FL (80-99) Mean Corpuscular Hemoglobin 28.5 PG (27.0-31.0) Mean Corpuscular Hemoglobin Concent 30.5 G/DL (32.0-36.0) L Red Cell Distribution Width 13.0 % (11.6-14.8) Platelet Count 115 K/UL (150-450) L Mean Platelet Volume 10.3 FL (6.5-10.1) H Neutrophils (%) (Auto) 83.9 % (45.0-75.0) H Lymphocytes (%) (Auto) 9.0 % (20.0-45.0) L Monocytes (%) (Auto) 5.8 % (1.0-10.0) Eosinophils (%) (Auto) 1.0 % (0.0-3.0) Basophils (%) (Auto) 0.2 % (0.0-2.0) Sodium Level 134 MMOL/L (136-145) L 150 MMOL/L (136-145) #H Potassium Level 3.1 MMOL/L (3.5-5.1) L 3.6 MMOL/L (3.5-5.1) Chloride Level 106 MMOL/L (98-107) 118 MMOL/L (98-107) H Carbon Dioxide Level 22 MMOL/L (21-32) 24 MMOL/L (21-32) Anion Gap 6 mmol/L (5-15) 8 mmol/L (5-15) Blood Urea Nitrogen 17 mg/dL (7-18) 15 mg/dL (7-18) Creatinine 1.5 MG/DL (0.55-1.30) H 1.5 MG/DL (0.55-1.30) H Estimat Glomerular Filtration Rate 56.2 mL/min (>60) 56.2 mL/min (>60) Glucose Level 384 MG/DL (74-106) #H 97 MG/DL (74-106) # Calcium Level 6.4 MG/DL (8.5-10.1) L 7.0 MG/DL (8.5-10.1) L Total Bilirubin 1.1 MG/DL (0.2-1.0) H Direct Bilirubin 0.7 MG/DL (0.0-0.3) H Aspartate Amino Transf (AST/SGOT) 61 U/L (15-37) H Alanine Aminotransferase (ALT/SGPT) 30 U/L (12-78) Alkaline Phosphatase 61 U/L (46-116) Total Creatine Kinase 1676 U/L (26-308) H Creatine Kinase MB 1.5 NG/ML (0.0-3.6) Creatine Kinase MB Relative Index 0.0 Troponin I 0.197 ng/mL (0.000-0.056) 0.368 ng/mL (0.000-0.056) Pro-B-Type Natriuretic Peptide 731 pg/mL (0-125) H 1272 pg/mL (0-125) H Total Protein 5.2 G/DL (6.4-8.2) L Albumin 1.4 G/DL (3.4-5.0) L Globulin 3.8 g/dL Albumin/Globulin Ratio 0.4 (1.0-2.7) L Magnesium Level 2.0 MG/DL (1.8-2.4) Vancomycin Level Trough Pending LEIDA LANDIN M.D. Mar 08, 2017 10:41
--- NOTE | 2017-03-08 11:09 | Nephrology Progress Note ---
Assessment/Plan Problem List: (1) Respiratory disorder with ventilator dependence (2) UTI (urinary tract infection) (3) Hypernatremia (4) Acute renal failure Assessment - Acute renal failure cr 1.1 to 2.4 to 2.1 to 1.9 to 1.5 - Chronic paranoid schizophrenia - Respiratory disorder with ventilator dependence - Healthcare associated bacterial pneumonia - UTI (urinary tract infection) - SIRS (systemic inflammatory response syndrome) - Alzheimer disease - Hypokalemia - Hypernatremia / due to water deficit improving with D5 resolving Plan plan: DC IV Water NGT Pulm support antibiotics monitor renal parameters K Phos IV per orders Subjective ROS Limited/Unobtainable: Yes Objective Objective Last 24 Hour Vital Signs Date Time Temp Pulse Resp B/P (MAP) Pulse Ox O2 Delivery O2 Flow Rate FiO2 03/08/17 09:05 95 28 50 03/08/17 08:00 95 03/08/17 08:00 50 03/08/17 08:00 99.7 96 28 114/53 100 Mechanical Ventilator 50 03/08/17 07:30 92 28 100 Mechanical Ventilator 50 03/08/17 07:30 91 26 50 03/08/17 07:30 93 32 113/54 100 Mechanical Ventilator 50 03/08/17 07:20 92 29 100 Mechanical Ventilator 50 03/08/17 07:20 50 03/08/17 07:00 89 23 91/47 100 Mechanical Ventilator 50 03/08/17 07:00 21 03/08/17 06:00 88 21 98/49 100 Mechanical Ventilator 50 03/08/17 06:00 21 03/08/17 05:00 87 24 107/54 100 Mechanical Ventilator 50 03/08/17 05:00 29 03/08/17 04:37 83 25 50 03/08/17 04:00 98.8 97 24 94/50 100 Mechanical Ventilator 50 03/08/17 04:00 50 03/08/17 04:00 28 03/08/17 04:00 91 03/08/17 03:15 96 26 50 03/08/17 03:00 91 25 88/48 100 Mechanical Ventilator 50 03/08/17 03:00 28 03/08/17 02:00 28 03/08/17 02:00 98 25 117/62 100 Mechanical Ventilator 50 03/08/17 01:49 98.9 03/08/17 01:37 97 27 100 Mechanical Ventilator 50 03/08/17 01:21 50 03/08/17 01:20 97 25 100 Mechanical Ventilator 50 03/08/17 01:17 97 25 50 03/08/17 01:00 21 03/08/17 01:00 97 28 91/62 100 Mechanical Ventilator 50 03/08/17 00:00 21 03/08/17 00:00 98.9 97 22 116/62 100 Mechanical Ventilator 50 03/07/17 23:00 22 03/07/17 23:00 100 22 101/62 100 Mechanical Ventilator 50 03/07/17 22:00 102 36 107/82 100 Mechanical Ventilator 50 03/07/17 22:00 28 03/07/17 21:52 94 28 50 03/07/17 21:00 95 16 89/57 100 Mechanical Ventilator 50 03/07/17 21:00 28 03/07/17 20:53 98.7 03/07/17 20:23 28 03/07/17 20:06 98 16 100 Mechanical Ventilator 50 03/07/17 20:00 99.7 95 16 94/59 100 Mechanical Ventilator 50 03/07/17 20:00 96 03/07/17 20:00 16 03/07/17 20:00 50 03/07/17 19:51 50 03/07/17 19:50 98 16 100 Mechanical Ventilator 50 03/07/17 19:44 98 34 50 03/07/17 19:00 27 03/07/17 19:00 97 27 97/62 100 Mechanical Ventilator 50 03/07/17 18:30 98 29 92/58 100 Mechanical Ventilator 50 03/07/17 18:00 27 03/07/17 18:00 98 34 90/59 98 Mechanical Ventilator 50 03/07/17 17:30 98 28 98/58 99 Mechanical Ventilator 50 03/07/17 17:00 97 36 107/57 98 Mechanical Ventilator 50 03/07/17 17:00 26 03/07/17 16:55 95 25 40 03/07/17 16:30 95 26 92/54 100 Mechanical Ventilator 50 03/07/17 16:00 98.7 95 26 103/76 100 Mechanical Ventilator 50 03/07/17 16:00 29 03/07/17 16:00 98 03/07/17 15:18 98 23 40 03/07/17 15:00 98 25 89/56 100 Mechanical Ventilator 50 03/07/17 15:00 24 03/07/17 14:00 96 26 90/53 100 Mechanical Ventilator 50 03/07/17 14:00 29 03/07/17 13:30 98 34 91/49 99 Mechanical Ventilator 50 03/07/17 13:00 27 03/07/17 13:00 98 27 85/54 100 Mechanical Ventilator 50 03/07/17 12:57 100 19 100 Mechanical Ventilator 50 03/07/17 12:49 100 22 100 Mechanical Ventilator 50 03/07/17 12:49 50 03/07/17 12:47 100 22 40 03/07/17 12:30 95 31 115/70 97 Mechanical Ventilator 50 03/07/17 12:30 50 03/07/17 12:00 93 03/07/17 12:00 40 03/07/17 12:00 24 03/07/17 12:00 98.9 94 24 89/51 98 Mechanical Ventilator 50 03/07/17 11:30 94 28 110/66 98 Mechanical Ventilator 50 03/07/17 11:13 95 24 40 Intake and Output 03/07/17 03/08/17 19:00 07:00 Intake Total 1622.00 ml 1017 ml Output Total 1080 ml 865 ml Balance 542.00 ml 152 ml Free Water 40 ml 125 ml IV Total 1482.00 ml 727 ml Tube Feeding 165 ml Other 100 ml Output Urine Total 1080 ml 865 ml Laboratory Tests 03/07/17 11:20: White Blood Count 14.1H, Red Blood Count 3.73L, Hemoglobin 10.6L, Hematocrit 34.9L, Mean Corpuscular Volume 94, Mean Corpuscular Hemoglobin 28.5, Mean Corpuscular Hemoglobin Concent 30.5L, Red Cell Distribution Width 13.0, Platelet Count 115L, Mean Platelet Volume 10.3H, Neutrophils (%) (Auto) 83.9H, Lymphocytes (%) (Auto) 9.0L, Monocytes (%) (Auto) 5.8, Eosinophils (%) (Auto) 1.0, Basophils (%) (Auto) 0.2, Sodium Level 134L, Potassium Level 3.1L, Chloride Level 106, Carbon Dioxide Level 22, Anion Gap 6, Blood Urea Nitrogen 17 , Creatinine 1.5H, Estimat Glomerular Filtration Rate 56.2, Glucose Level 384#H , Calcium Level 6.4L, Total Bilirubin 1.1H, Direct Bilirubin 0.7H, Aspartate Amino Transf (AST/SGOT) 61H, Alanine Aminotransferase (ALT/SGPT) 30, Alkaline Phosphatase 61, Total Creatine Kinase 1676H, Creatine Kinase MB 1.5, Creatine Kinase MB Relative Index 0.0, Troponin I 0.197H, Pro-B-Type Natriuretic Peptide 731H, Total Protein 5.2L, Albumin 1.4L, Globulin 3.8, Albumin/Globulin Ratio 0.4L 03/08/17 05:00: Sodium Level 150#H, Potassium Level 3.6, Chloride Level 118H, Carbon Dioxide Level 24, Anion Gap 8, Blood Urea Nitrogen 15, Creatinine 1.5H, Estimat Glomerular Filtration Rate 56.2, Glucose Level 97#, Calcium Level 7.0L, Troponin I 0.368H, Pro-B-Type Natriuretic Peptide 1272H, Magnesium Level 2.0 03/08/17 09:50: Vancomycin Level Trough 15.4H Height (Feet): 5 Height (Inches): 9.00 Weight (Pounds): 130 General Appearance: no apparent distress EENT: other - intubated Respiratory/Chest: decreased breath sounds Abdomen: distended Objective no change CHACHA NUNES Mar 08, 2017 11:09
[2017-03-08] MEDS: Vancomycin 750mg/NS 250ml IVPB SCH (11:21)
--- NOTE | 2017-03-08 12:47 | Infectious Diseases Prog Note ---
Assessment/Plan Assessment/Plan ASSESSMENT: The patient is a 71-year-old male with: +ve blood Cx : Aerococcus Sepsis. Leukocytosis i Fever, SP Probable underlying pneumonia. Scx : ESBL EColi May need to rule out intra-abdominal sepsis if the patient's white blood cell does not improve Possible urinary tract infection Influenza negative AST Elevation Positive cardiac enzymes. Acute renal failure, improving Dysphagia. Osteoarthritis. Hypertension. COPD. History of GERD History of H. pylori in the past Dementia with psychosis PLAN: continue IV Merrem d# 2 03/08 SP vancomycin d# 5 / SP Zosyn d# 4 Monitor CBC. Monitor BMP. Monitor cultures (blood ) Monitor chest x-ray. Monitor renal function. change Fem to PICC ( [facility] ) US of Abd Subjective Allergies: Coded Allergies: No Known Allergies (Unverified , 10/20/16) Subjective afebrile Objective Vital Signs Last 24 Hour Vital Signs Date Time Temp Pulse Resp B/P (MAP) Pulse Ox O2 Delivery O2 Flow Rate FiO2 03/08/17 12:30 99 28 50 03/08/17 12:30 98 29 98 Mechanical Ventilator 35 03/08/17 12:20 99 28 100 Mechanical Ventilator 35 03/08/17 12:20 35 03/08/17 11:12 105 35 50 03/08/17 09:05 95 28 50 03/08/17 08:00 95 03/08/17 08:00 50 03/08/17 08:00 99.7 96 28 114/53 100 Mechanical Ventilator 50 03/08/17 07:30 92 28 100 Mechanical Ventilator 50 03/08/17 07:30 91 26 50 03/08/17 07:30 93 32 113/54 100 Mechanical Ventilator 50 03/08/17 07:20 92 29 100 Mechanical Ventilator 50 03/08/17 07:20 50 03/08/17 07:00 89 23 91/47 100 Mechanical Ventilator 50 03/08/17 07:00 21 03/08/17 06:00 88 21 98/49 100 Mechanical Ventilator 50 03/08/17 06:00 21 03/08/17 05:00 87 24 107/54 100 Mechanical Ventilator 50 03/08/17 05:00 29 03/08/17 04:37 83 25 50 03/08/17 04:00 98.8 97 24 94/50 100 Mechanical Ventilator 50 03/08/17 04:00 50 03/08/17 04:00 28 03/08/17 04:00 91 03/08/17 03:15 96 26 50 03/08/17 03:00 91 25 88/48 100 Mechanical Ventilator 50 03/08/17 03:00 28 03/08/17 02:00 28 03/08/17 02:00 98 25 117/62 100 Mechanical Ventilator 50 03/08/17 01:49 98.9 03/08/17 01:37 97 27 100 Mechanical Ventilator 50 03/08/17 01:21 50 03/08/17 01:20 97 25 100 Mechanical Ventilator 50 03/08/17 01:17 97 25 50 03/08/17 01:00 21 03/08/17 01:00 97 28 91/62 100 Mechanical Ventilator 50 03/08/17 00:00 21 03/08/17 00:00 98.9 97 22 116/62 100 Mechanical Ventilator 50 03/07/17 23:00 22 03/07/17 23:00 100 22 101/62 100 Mechanical Ventilator 50 03/07/17 22:00 102 36 107/82 100 Mechanical Ventilator 50 03/07/17 22:00 28 03/07/17 21:52 94 28 50 03/07/17 21:00 95 16 89/57 100 Mechanical Ventilator 50 03/07/17 21:00 28 03/07/17 20:53 98.7 03/07/17 20:23 28 03/07/17 20:06 98 16 100 Mechanical Ventilator 50 03/07/17 20:00 99.7 95 16 94/59 100 Mechanical Ventilator 50 03/07/17 20:00 96 03/07/17 20:00 16 03/07/17 20:00 50 03/07/17 19:51 50 03/07/17 19:50 98 16 100 Mechanical Ventilator 50 03/07/17 19:44 98 34 50 03/07/17 19:00 27 03/07/17 19:00 97 27 97/62 100 Mechanical Ventilator 50 03/07/17 18:30 98 29 92/58 100 Mechanical Ventilator 50 03/07/17 18:00 27 03/07/17 18:00 98 34 90/59 98 Mechanical Ventilator 50 03/07/17 17:30 98 28 98/58 99 Mechanical Ventilator 50 03/07/17 17:00 97 36 107/57 98 Mechanical Ventilator 50 03/07/17 17:00 26 03/07/17 16:55 95 25 40 03/07/17 16:30 95 26 92/54 100 Mechanical Ventilator 50 03/07/17 16:00 98.7 95 26 103/76 100 Mechanical Ventilator 50 03/07/17 16:00 29 03/07/17 16:00 98 03/07/17 15:18 98 23 40 03/07/17 15:00 98 25 89/56 100 Mechanical Ventilator 50 03/07/17 15:00 24 03/07/17 14:00 96 26 90/53 100 Mechanical Ventilator 50 03/07/17 14:00 29 03/07/17 13:30 98 34 91/49 99 Mechanical Ventilator 50 03/07/17 13:00 27 03/07/17 13:00 98 27 85/54 100 Mechanical Ventilator 50 03/07/17 12:57 100 19 100 Mechanical Ventilator 50 03/07/17 12:49 100 22 100 Mechanical Ventilator 50 03/07/17 12:49 50 03/07/17 12:47 100 22 40 Height (Feet): 5 Height (Inches): 9.00 Weight (Pounds): 130 HEENT: normocephalic Respiratory/Chest: normal breath sounds Cardiovascular: regular rhythm Abdomen: no organomegaly Microbiology Date/Time Source Procedure Growth Status 03/06/17 18:00 Blood Blood Culture - Preliminary NO GROWTH AFTER 24 HOURS Resulted 03/06/17 18:00 Blood Blood Culture - Preliminary NO GROWTH AFTER 24 HOURS Resulted Laboratory Tests Test 03/08/17 05:00 03/08/17 09:50 Sodium Level 150 MMOL/L (136-145) #H Potassium Level 3.6 MMOL/L (3.5-5.1) Chloride Level 118 MMOL/L (98-107) H Carbon Dioxide Level 24 MMOL/L (21-32) Anion Gap 8 mmol/L (5-15) Blood Urea Nitrogen 15 mg/dL (7-18) Creatinine 1.5 MG/DL (0.55-1.30) H Estimat Glomerular Filtration Rate 56.2 mL/min (>60) Glucose Level 97 MG/DL (74-106) # Calcium Level 7.0 MG/DL (8.5-10.1) L Magnesium Level 2.0 MG/DL (1.8-2.4) Troponin I 0.368 ng/mL (0.000-0.056) Pro-B-Type Natriuretic Peptide 1272 pg/mL (0-125) H Vancomycin Level Trough 15.4 ug/mL (5.0-12.0) H Current Medications Medications (Trade) Dose Ordered Sig/Ant Route PRN Reason Start Time Stop Time Status Last Admin Dose Admin Acetaminophen (Tylenol) 650 mg Q4H PRN ORAL Mild Pain/Temp > 100.5 03/04/17 08:45 04/03/17 08:44 03/08/17 00:50 Albuterol/ Ipratropium (Albuterol/ Ipratropium) 3 ml Q6HRT HHN 03/04/17 13:00 03/09/17 12:59 03/08/17 12:38 Aspirin (ASA) 81 mg DAILY NG 03/06/17 14:15 04/05/17 14:14 03/08/17 09:56 Chlorhexidine Gluconate (Lisa-Hex 2%) 1 applic Q24H TOPIC 03/07/17 20:00 04/06/17 19:59 03/07/17 20:33 Fentanyl Citrate 2500 mcg/Sodium Chloride 250 ml @ 0 mls/hr Q24H IV 03/06/17 21:00 03/13/17 20:59 03/07/17 20:23 Heparin Sodium (Porcine) (Heparin 5000 units/ml) 5,000 units EVERY 12 HOURS SUBQ 03/04/17 21:00 04/03/17 20:59 03/07/17 08:22 Lorazepam (Ativan 2mg/ml 1ml) 1 mg Q4H PRN IV For Anxiety 03/04/17 09:30 03/11/17 09:29 03/08/17 10:08 Meropenem 1 gm/ Sodium Chloride 55 ml @ 110 mls/hr Q12HR@0600,1800 IVPB 03/07/17 18:00 03/12/17 17:59 03/08/17 05:01 Midazolam HCl (Versed 2mg/2ml vial) 1 mg Q2H PRN IVP agitation 03/04/17 11:45 04/03/17 11:44 03/06/17 08:04 Pantoprazole (Protonix) 40 mg Q12HR IVP 03/04/17 21:00 04/03/17 20:59 03/08/17 09:55 Vancomycin HCl (Vanco rx to dose) 1 ea DAILY PRN MISC Per rx protocol 03/04/17 08:45 04/03/17 08:44 Vancomycin/Sodium Chloride 250 ml @ 166.667 mls/hr Q12HR@1100,2300 IVPB 03/06/17 11:00 03/11/17 10:59 03/08/17 11:21 NATALY STEPHENSON M.D. Mar 08, 2017 12:47
[2017-03-08] MEDS ORDERED: NS 500ML ONE (17:26)
[2017-03-08] MEDS ORDERED: D5NS 1000ml IV ONE (17:26)
[2017-03-08] MEDS ORDERED: Tubing IV Secondary IV ONE (17:26)
[2017-03-08] MEDS: Dyna-Hex 2% Top Sol 2oz TOPIC SCH (20:09)
--- NOTE | 2017-03-08 20:15 | Progress Note ---
DATE: 03/08/2017 CARDIOLOGY PROGRESS NOTE CRITICAL CARE SUBJECTIVE: The patient is remaining on the ventilator support. Blood pressure parameters are improved. He is off pressors. IV fluids have been discontinued. OBJECTIVE: VITAL SIGNS: Blood pressure 91/46 to 144/71, heart rate 99 to 106, and respiratory rate 28 to 38. The patient is afebrile. T-max 99. LUNGS: Coarse breath sounds with rhonchi. HEART: Regular rhythm and rate. Normal S1 and S2. ABDOMEN: Soft. EXTREMITIES: No edema. LABORATORY STUDIES: Sodium 150, potassium 3.6, chloride 118, bicarbonate 24, BUN 15 and creatinine 1.5. Troponin increased to 0.413. Pro-natriuretic peptide 1272. White count 14 and hemoglobin 10.6. IMPRESSION: 1. Sepsis with shock, improving. 2. Dehydration. 3. Hyponatremia. 4. Respiratory failure. 5. Urinary tract infection. 6. Acute myocardial infarction. 7. Acute renal failure. Remains critical and guarded. PLAN: 1. Free water replacement. 2. Off saline. 3. Continue efforts to maintain off pressors. 4. Repeat EKG obtained. 5. Antiplatelet therapy with aspirin continued. 6. DVT prophylaxis. 7. Consider beta-kirk if blood pressure parameters stabilize further. 8. No indication for diuresis at this time. 9. We will obtain echocardiogram for evaluation of left ventricular function. Manuel Manning M.D. DR: JUAN JOB#: [id number] CC:
--- NOTE | 2017-03-08 20:44 | General Progress Note ---
Assessment/Plan Assessment/Plan Assessment/Plan 1. VDRF 2. Sepsis. 2. Healthcare-associated pneumonia (?) 3. Acute hypoxemic respiratory failure. 4. Acute anemia. 5. Hypokalemia. 6. Hypernatremia. 7. Urinary tract infection-healthcare related. 8. Gastrointestinal and deep vein thrombosis prophylaxis. 9. Abnormal Troponin Subjective Hematologic/Lymphatic: Reports: anemia Allergies: Coded Allergies: No Known Allergies (Unverified , 10/20/16) All Systems: reviewed and negative except above Subjective afebrile, no bleeding Objective Last 24 Hour Vital Signs Date Time Temp Pulse Resp B/P (MAP) Pulse Ox O2 Delivery O2 Flow Rate FiO2 03/08/17 20:00 35 03/08/17 18:30 98 28 92/49 95 Mechanical Ventilator 35 03/08/17 18:00 103 38 144/71 95 Mechanical Ventilator 35 03/08/17 18:00 38 03/08/17 17:30 99 28 91/46 96 Mechanical Ventilator 35 03/08/17 17:04 106 38 50 03/08/17 17:00 33 03/08/17 17:00 102 33 106/48 97 Mechanical Ventilator 35 03/08/17 16:30 102 34 111/55 95 Mechanical Ventilator 35 03/08/17 16:00 99.0 97 27 97/47 97 Mechanical Ventilator 35 03/08/17 16:00 27 03/08/17 16:00 35 03/08/17 16:00 98 03/08/17 15:30 98 29 91/49 97 Mechanical Ventilator 35 03/08/17 15:00 98 27 102/64 97 Mechanical Ventilator 35 03/08/17 15:00 27 03/08/17 14:50 98 28 50 03/08/17 14:30 101 25 91/48 96 Mechanical Ventilator 35 03/08/17 14:00 98 24 88/47 100 Mechanical Ventilator 35 03/08/17 14:00 24 03/08/17 13:30 100 23 89/46 100 Mechanical Ventilator 35 03/08/17 13:00 98 24 98/53 99 Mechanical Ventilator 35 03/08/17 13:00 23 03/08/17 12:30 100 30 103/50 98 Mechanical Ventilator 35 03/08/17 12:30 99 28 50 03/08/17 12:30 98 29 98 Mechanical Ventilator 35 03/08/17 12:20 99 28 100 Mechanical Ventilator 35 03/08/17 12:20 35 03/08/17 12:00 29 03/08/17 12:00 98 03/08/17 12:00 35 03/08/17 12:00 99.5 100 29 90/50 99 Mechanical Ventilator 35 03/08/17 11:30 104 38 106/53 95 Mechanical Ventilator 35 03/08/17 11:12 105 35 50 03/08/17 11:00 101 32 93/44 97 Mechanical Ventilator 35 03/08/17 11:00 32 03/08/17 10:30 100 34 157/58 99 Mechanical Ventilator 50 03/08/17 10:00 41 03/08/17 10:00 100 41 146/78 98 Mechanical Ventilator 50 03/08/17 09:30 94 28 111/52 97 Mechanical Ventilator 50 03/08/17 09:05 95 28 50 03/08/17 09:00 19 03/08/17 09:00 94 19 94/67 100 Mechanical Ventilator 50 03/08/17 08:30 97 26 88/64 100 Mechanical Ventilator 50 03/08/17 08:00 95 03/08/17 08:00 50 03/08/17 08:00 99.7 96 28 114/53 100 Mechanical Ventilator 50 03/08/17 08:00 22 03/08/17 07:30 92 28 100 Mechanical Ventilator 50 03/08/17 07:30 91 26 50 03/08/17 07:30 93 32 113/54 100 Mechanical Ventilator 50 03/08/17 07:20 92 29 100 Mechanical Ventilator 50 03/08/17 07:20 50 03/08/17 07:00 89 23 91/47 100 Mechanical Ventilator 50 03/08/17 07:00 21 03/08/17 06:00 88 21 98/49 100 Mechanical Ventilator 50 03/08/17 06:00 21 03/08/17 05:00 87 24 107/54 100 Mechanical Ventilator 50 03/08/17 05:00 29 03/08/17 04:37 83 25 50 03/08/17 04:00 98.8 97 24 94/50 100 Mechanical Ventilator 50 03/08/17 04:00 50 03/08/17 04:00 28 03/08/17 04:00 91 03/08/17 03:15 96 26 50 03/08/17 03:00 91 25 88/48 100 Mechanical Ventilator 50 03/08/17 03:00 28 03/08/17 02:00 28 03/08/17 02:00 98 25 117/62 100 Mechanical Ventilator 50 03/08/17 01:49 98.9 03/08/17 01:37 97 27 100 Mechanical Ventilator 50 03/08/17 01:21 50 03/08/17 01:20 97 25 100 Mechanical Ventilator 50 03/08/17 01:17 97 25 50 03/08/17 01:00 21 03/08/17 01:00 97 28 91/62 100 Mechanical Ventilator 50 03/08/17 00:00 21 03/08/17 00:00 98.9 97 22 116/62 100 Mechanical Ventilator 50 03/07/17 23:00 22 03/07/17 23:00 100 22 101/62 100 Mechanical Ventilator 50 03/07/17 22:00 102 36 107/82 100 Mechanical Ventilator 50 03/07/17 22:00 28 03/07/17 21:52 94 28 50 03/07/17 21:00 95 16 89/57 100 Mechanical Ventilator 50 03/07/17 21:00 28 03/07/17 20:53 98.7 Intake and Output 03/07/17 03/08/17 19:00 07:00 Intake Total 1622.00 ml 1017 ml Output Total 1080 ml 865 ml Balance 542.00 ml 152 ml Free Water 40 ml 125 ml IV Total 1482.00 ml 727 ml Tube Feeding 165 ml Other 100 ml Output Urine Total 1080 ml 865 ml Laboratory Tests 03/08/17 05:00: Sodium Level 150#H, Potassium Level 3.6, Chloride Level 118H, Carbon Dioxide Level 24, Anion Gap 8, Blood Urea Nitrogen 15, Creatinine 1.5H, Estimat Glomerular Filtration Rate 56.2, Glucose Level 97#, Calcium Level 7.0L, Magnesium Level 2.0, Troponin I 0.368H, Pro-B-Type Natriuretic Peptide 1272H 03/08/17 09:50: Vancomycin Level Trough 15.4H 03/08/17 14:30: Troponin I 0.413H Height (Feet): 5 Height (Inches): 9.00 Weight (Pounds): 130 General Appearance: no apparent distress EENT: normal ENT inspection Neck: normal alignment Cardiovascular: normal peripheral pulses Abdomen: normal bowel sounds Extremities: normal range of motion Justin Anthony Mar 08, 2017 20:44
[2017-03-08] MEDS: fentaNYL Citrate 2500mcg in NS 250ml IV SCH (21:14)
[2017-03-09] VITALS (47 sets, daily range): BP systolic 90–172; BP diastolic 44–89
[2017-03-09] MEDS: Albuterol/Ipratropium 3ml neb HHN SCH ×4 (01:35→20:26)
[2017-03-09] MEDS: Meropenem 1gm in NS 55ml IVPB SCH ×2 (05:44→17:46)
[2017-03-09] MEDS: Midazolam 2mg/2ml Inj IVP PRN ×2 (06:12→12:52)
[2017-03-09] MEDS: Pantoprazole Inj IVP SCH ×2 (08:19→20:49)
[2017-03-09] MEDS: Aspirin Baby 81mg NG SCH (08:19)
[2017-03-09] MEDS: Heparin 5000 units/ml inj SUBQ SCH ×2 (08:22→20:49)
[2017-03-09 08:34] LABS: BASOPHILS % (AUTO) 0.7 % (0.0-2.0); EOSINOPHILS % (AUTO) 1.1 % (0.0-3.0); HEMATOCRIT 38.3 % (42.0-52.0); HEMOGLOBIN 11.9 G/DL (14.2-18.0); LYMPHOCYTES % (AUTO) 6.7 % (20.0-45.0); MEAN CORPUSCULAR VOLUME 94 FL (80-99); MONOCYTES % (AUTO) 9.4 % (1.0-10.0); NEUTROPHILS % (AUTO) 82.2 % (45.0-75.0); PLATELET COUNT 183 K/UL (150-450); RED BLOOD COUNT 4.09 M/UL (4.70-6.10); RED CELL DISTRIBUTION WIDTH 13.1 % (11.6-14.8); WHITE BLOOD COUNT 13.1 K/UL (4.8-10.8)
[2017-03-09 09:09] LABS: ALANINE AMINOTRANSFERASE 31 U/L (12-78); ALBUMIN 1.5 G/DL (3.4-5.0); ALBUMIN/GLOBULIN RATIO 0.3 (1.0-2.7); ALKALINE PHOSPHATASE 87 U/L (46-116); ANION GAP 8 mmol/L (5-15); ASPARTATE AMINO TRANSFERASE 61 U/L (15-37); BLOOD UREA NITROGEN 13 mg/dL (7-18); CALCIUM 7.3 MG/DL (8.5-10.1); CARBON DIOXIDE 23 MMOL/L (21-32); CHLORIDE 116 MMOL/L (98-107); CREATININE 1.2 MG/DL (0.55-1.30); POTASSIUM 3.3 MMOL/L (3.5-5.1); SODIUM 147 MMOL/L (136-145)
--- NOTE | 2017-03-09 09:11 | Nephrology Progress Note ---
Assessment/Plan Problem List: (1) Respiratory disorder with ventilator dependence (2) UTI (urinary tract infection) (3) Hypernatremia (4) Acute renal failure Assessment - Today's labs pending - Acute renal failure cr 1.1 to 2.4 to 2.1 to 1.9 to 1.5 - Chronic paranoid schizophrenia - Respiratory disorder with ventilator dependence - Healthcare associated bacterial pneumonia - UTI (urinary tract infection) - SIRS (systemic inflammatory response syndrome) - Alzheimer disease - Hypokalemia - Hypernatremia / due to water deficit improving with D5 resolving Plan plan: DC IV Water NGT Pulm support antibiotics monitor renal parameters K Phos IV per orders Subjective ROS Limited/Unobtainable: Yes Objective Objective Last 24 Hour Vital Signs Date Time Temp Pulse Resp B/P (MAP) Pulse Ox O2 Delivery O2 Flow Rate FiO2 03/09/17 08:53 102 41 35 03/09/17 08:49 35 03/09/17 08:49 99 40 100 Mechanical Ventilator 35 03/09/17 08:37 100 26 99 Mechanical Ventilator 35 03/09/17 08:00 100 03/09/17 08:00 98.5 100 36 127/69 100 Mechanical Ventilator 35 03/09/17 08:00 35 03/09/17 07:30 100 36 110/60 100 Mechanical Ventilator 35 03/09/17 07:03 100 38 35 03/09/17 07:00 32 03/09/17 07:00 100 36 106/56 100 Mechanical Ventilator 35 03/09/17 06:30 102 36 172/73 98 Mechanical Ventilator 35 03/09/17 06:00 105 36 172/73 98 Mechanical Ventilator 35 03/09/17 06:00 40 03/09/17 05:35 101 33 50 03/09/17 05:30 107 32 133/60 98 Mechanical Ventilator 35 03/09/17 05:00 99 32 133/60 98 Mechanical Ventilator 35 03/09/17 04:30 105 38 103/55 96 Mechanical Ventilator 35 03/09/17 04:00 109 03/09/17 04:00 35 03/09/17 04:00 39 03/09/17 04:00 98.7 101 31 153/69 96 Mechanical Ventilator 35 03/09/17 03:44 96 34 50 03/09/17 03:30 97 31 124/61 97 Mechanical Ventilator 35 03/09/17 03:00 33 03/09/17 03:00 95 28 123/55 98 Mechanical Ventilator 35 03/09/17 02:30 96 29 96/47 96 Mechanical Ventilator 35 03/09/17 02:00 97 33 93/50 96 Mechanical Ventilator 35 03/09/17 02:00 30 03/09/17 01:44 89 25 98 Mechanical Ventilator 35 03/09/17 01:36 100 36 95 Mechanical Ventilator 35 03/09/17 01:36 35 03/09/17 01:35 100 38 50 03/09/17 01:30 99 31 128/61 94 Mechanical Ventilator 35 03/09/17 01:00 95 31 90/50 94 Mechanical Ventilator 35 03/09/17 01:00 30 03/09/17 00:30 96 30 101/62 96 Mechanical Ventilator 35 03/09/17 00:00 99.3 98 31 140/61 96 Mechanical Ventilator 35 03/09/17 00:00 35 03/09/17 00:00 30 03/09/17 00:00 98 03/08/17 23:55 97 26 50 03/08/17 23:30 101 31 90/50 94 Mechanical Ventilator 35 03/08/17 23:00 34 03/08/17 23:00 102 31 94/49 94 Mechanical Ventilator 35 03/08/17 22:49 100.1 03/08/17 22:30 104 31 102/55 94 Mechanical Ventilator 35 03/08/17 22:00 101 29 101/55 97 Mechanical Ventilator 35 03/08/17 22:00 25 03/08/17 21:30 100.7 100 30 84/38 97 Mechanical Ventilator 35 03/08/17 21:14 28 03/08/17 21:05 97 29 95 Mechanical Ventilator 35 03/08/17 21:00 25 03/08/17 21:00 101 29 108/50 97 Mechanical Ventilator 35 03/08/17 20:55 96 28 100 Mechanical Ventilator 35 03/08/17 20:55 35 03/08/17 20:54 99 32 50 03/08/17 20:30 100 32 102/50 96 Mechanical Ventilator 35 03/08/17 20:00 101 03/08/17 20:00 101 28 123/61 95 Mechanical Ventilator 35 03/08/17 20:00 22 03/08/17 20:00 35 03/08/17 19:30 98 28 94/41 95 Mechanical Ventilator 35 03/08/17 19:00 99.3 99 27 90/44 95 Mechanical Ventilator 35 03/08/17 19:00 30 03/08/17 18:30 98 28 92/49 95 Mechanical Ventilator 35 03/08/17 18:00 103 38 144/71 95 Mechanical Ventilator 35 03/08/17 18:00 38 03/08/17 17:30 99 28 91/46 96 Mechanical Ventilator 35 03/08/17 17:04 106 38 50 03/08/17 17:00 33 03/08/17 17:00 102 33 106/48 97 Mechanical Ventilator 35 03/08/17 16:30 102 34 111/55 95 Mechanical Ventilator 35 03/08/17 16:00 99.0 97 27 97/47 97 Mechanical Ventilator 35 03/08/17 16:00 27 03/08/17 16:00 35 03/08/17 16:00 98 03/08/17 15:30 98 29 91/49 97 Mechanical Ventilator 35 03/08/17 15:00 98 27 102/64 97 Mechanical Ventilator 35 03/08/17 15:00 27 03/08/17 14:50 98 28 50 03/08/17 14:30 101 25 91/48 96 Mechanical Ventilator 35 03/08/17 14:00 98 24 88/47 100 Mechanical Ventilator 35 03/08/17 14:00 24 03/08/17 13:30 100 23 89/46 100 Mechanical Ventilator 35 03/08/17 13:00 98 24 98/53 99 Mechanical Ventilator 35 03/08/17 13:00 23 03/08/17 12:30 100 30 103/50 98 Mechanical Ventilator 35 03/08/17 12:30 99 28 50 03/08/17 12:30 98 29 98 Mechanical Ventilator 35 03/08/17 12:20 99 28 100 Mechanical Ventilator 35 03/08/17 12:20 35 03/08/17 12:00 29 03/08/17 12:00 98 03/08/17 12:00 35 03/08/17 12:00 99.5 100 29 90/50 99 Mechanical Ventilator 35 03/08/17 11:30 104 38 106/53 95 Mechanical Ventilator 35 03/08/17 11:12 105 35 50 03/08/17 11:00 101 32 93/44 97 Mechanical Ventilator 35 03/08/17 11:00 32 12/25/17 10:30 100 34 157/58 99 Mechanical Ventilator 50 03/08/17 10:00 41 03/08/17 10:00 100 41 146/78 98 Mechanical Ventilator 50 03/08/17 09:30 94 28 111/52 97 Mechanical Ventilator 50 Intake and Output 03/08/17 03/09/17 19:00 07:00 Intake Total 1299.667 ml 1012 ml Output Total 1035 ml 845 ml Balance 264.667 ml 167 ml Free Water 280 ml 300 ml IV Total 599.667 ml 82 ml Tube Feeding 370 ml 570 ml Other 50 ml 60 ml Output Urine Total 1035 ml 845 ml # Bowel Movements 1 Laboratory Tests 03/08/17 09:50: Vancomycin Level Trough 15.4H 03/08/17 14:30: Troponin I 0.413H 03/09/17 08:10: White Blood Count 13.1H, Red Blood Count 4.09L, Hemoglobin 11.9L, Hematocrit 38.3L, Mean Corpuscular Volume 94, Mean Corpuscular Hemoglobin 29.2, Mean Corpuscular Hemoglobin Concent 31.2L, Red Cell Distribution Width 13.1, Platelet Count 183, Mean Platelet Volume 9.1, Neutrophils (%) (Auto) 82.2H, Lymphocytes (%) (Auto) 6.7L, Monocytes (%) (Auto) 9.4, Eosinophils (%) (Auto) 1.1, Basophils (%) (Auto) 0.7, Sodium Level [Pending], Potassium Level [Pending] , Chloride Level [Pending], Carbon Dioxide Level [Pending], Blood Urea Nitrogen [Pending], Creatinine [Pending], Estimat Glomerular Filtration Rate [Pending], Glucose Level [Pending], Calcium Level [Pending], Total Bilirubin [Pending], Aspartate Amino Transf (AST/SGOT) [Pending], Alanine Aminotransferase (ALT/SGPT ) [Pending], Alkaline Phosphatase [Pending], Total Protein [Pending], Albumin [ Pending], Globulin [Pending] Height (Feet): 5 Height (Inches): 9.00 Weight (Pounds): 130 General Appearance: no apparent distress Cardiovascular: tachycardia Respiratory/Chest: decreased breath sounds, other - tachypneic Abdomen: soft Objective no change FOULADIAN,CHACHA Mar 09, 2017 09:11
--- NOTE | 2017-03-09 09:31 | Infectious Diseases Prog Note ---
Assessment/Plan Assessment/Plan ASSESSMENT: The patient is a 71-year-old male with: +ve blood Cx : Aerococcus urinae- ?source UTI however Ucx neg; r/o endocarditis as has been associated with endocarditis in the elderly. -03/03 Bcx 1/4 +; 03/06 NTD x4 Sepsis. Leukocytosis , improving Intermittent low grade fevers Probable underlying pneumonia. Scx : ESBL EColi May need to rule out intra-abdominal sepsis if the patient's white blood cell does not improve Possible urinary tract infection Influenza negative AST Elevation Positive cardiac enzymes. Acute renal failure, improving Dysphagia. Osteoarthritis. Hypertension. COPD. History of GERD History of H. pylori in the past Dementia with psychosis PLAN: continue IV Merrem d# 3 03/08 SP vancomycin d# 5 03/07 SP Zosyn d# 4 TTE- to evaluate for vegetations Monitor CBC. Monitor BMP. Monitor cultures (blood ) Monitor chest x-ray. Monitor renal function. change Fem to PICC ( [facility] ) f/u US of Abd Subjective Allergies: Coded Allergies: No Known Allergies (Unverified , 10/20/16) Subjective intermittent low grade fevers Tm 100.7 leukocytosis improving repeat Bcx NTD Objective Vital Signs Last 24 Hour Vital Signs Date Time Temp Pulse Resp B/P (MAP) Pulse Ox O2 Delivery O2 Flow Rate FiO2 03/09/17 08:53 102 41 35 03/09/17 08:49 35 03/09/17 08:49 99 40 100 Mechanical Ventilator 35 03/09/17 08:37 100 26 99 Mechanical Ventilator 35 03/09/17 08:00 100 03/09/17 08:00 98.5 100 36 127/69 100 Mechanical Ventilator 35 03/09/17 08:00 35 03/09/17 07:30 100 36 110/60 100 Mechanical Ventilator 35 03/09/17 07:03 100 38 35 03/09/17 07:00 32 03/09/17 07:00 100 36 106/56 100 Mechanical Ventilator 35 03/09/17 06:30 102 36 172/73 98 Mechanical Ventilator 35 03/09/17 06:00 105 36 172/73 98 Mechanical Ventilator 35 03/09/17 06:00 40 03/09/17 05:35 101 33 50 03/09/17 05:30 107 32 133/60 98 Mechanical Ventilator 35 03/09/17 05:00 99 32 133/60 98 Mechanical Ventilator 35 03/09/17 04:30 105 38 103/55 96 Mechanical Ventilator 35 03/09/17 04:00 109 03/09/17 04:00 35 03/09/17 04:00 39 03/09/17 04:00 98.7 101 31 153/69 96 Mechanical Ventilator 35 03/09/17 03:44 96 34 50 03/09/17 03:30 97 31 124/61 97 Mechanical Ventilator 35 03/09/17 03:00 33 03/09/17 03:00 95 28 123/55 98 Mechanical Ventilator 35 03/09/17 02:30 96 29 96/47 96 Mechanical Ventilator 35 03/09/17 02:00 97 33 93/50 96 Mechanical Ventilator 35 03/09/17 02:00 30 03/09/17 01:44 89 25 98 Mechanical Ventilator 35 03/09/17 01:36 100 36 95 Mechanical Ventilator 35 03/09/17 01:36 35 03/09/17 01:35 100 38 50 03/09/17 01:30 99 31 128/61 94 Mechanical Ventilator 35 03/09/17 01:00 95 31 90/50 94 Mechanical Ventilator 35 03/09/17 01:00 30 03/09/17 00:30 96 30 101/62 96 Mechanical Ventilator 35 03/09/17 00:00 99.3 98 31 140/61 96 Mechanical Ventilator 35 03/09/17 00:00 35 03/09/17 00:00 30 03/09/17 00:00 98 03/08/17 23:55 97 26 50 03/08/17 23:30 101 31 90/50 94 Mechanical Ventilator 35 03/08/17 23:00 34 03/08/17 23:00 102 31 94/49 94 Mechanical Ventilator 35 03/08/17 22:49 100.1 03/08/17 22:30 104 31 102/55 94 Mechanical Ventilator 35 03/08/17 22:00 101 29 101/55 97 Mechanical Ventilator 35 03/08/17 22:00 25 03/08/17 21:30 100.7 100 30 84/38 97 Mechanical Ventilator 35 03/08/17 21:14 28 03/08/17 21:05 97 29 95 Mechanical Ventilator 35 03/08/17 21:00 25 03/08/17 21:00 101 29 108/50 97 Mechanical Ventilator 35 03/08/17 20:55 96 28 100 Mechanical Ventilator 35 03/08/17 20:55 35 03/08/17 20:54 99 32 50 03/08/17 20:30 100 32 102/50 96 Mechanical Ventilator 35 03/08/17 20:00 101 03/08/17 20:00 101 28 123/61 95 Mechanical Ventilator 35 03/08/17 20:00 22 03/08/17 20:00 35 03/08/17 19:30 98 28 94/41 95 Mechanical Ventilator 35 03/08/17 19:00 99.3 99 27 90/44 95 Mechanical Ventilator 35 03/08/17 19:00 30 03/08/17 18:30 98 28 92/49 95 Mechanical Ventilator 35 03/08/17 18:00 103 38 144/71 95 Mechanical Ventilator 35 03/08/17 18:00 38 03/08/17 17:30 99 28 91/46 96 Mechanical Ventilator 35 03/08/17 17:04 106 38 50 03/08/17 17:00 33 03/08/17 17:00 102 33 106/48 97 Mechanical Ventilator 35 03/08/17 16:30 102 34 111/55 95 Mechanical Ventilator 35 03/08/17 16:00 99.0 97 27 97/47 97 Mechanical Ventilator 35 03/08/17 16:00 27 03/08/17 16:00 35 03/08/17 16:00 98 03/08/17 15:30 98 29 91/49 97 Mechanical Ventilator 35 03/08/17 15:00 98 27 102/64 97 Mechanical Ventilator 35 03/08/17 15:00 27 03/08/17 14:50 98 28 50 03/08/17 14:30 101 25 91/48 96 Mechanical Ventilator 35 03/08/17 14:00 98 24 88/47 100 Mechanical Ventilator 35 03/08/17 14:00 24 03/08/17 13:30 100 23 89/46 100 Mechanical Ventilator 35 03/08/17 13:00 98 24 98/53 99 Mechanical Ventilator 35 03/08/17 13:00 23 03/08/17 12:30 100 30 103/50 98 Mechanical Ventilator 35 03/08/17 12:30 99 28 50 03/08/17 12:30 98 29 98 Mechanical Ventilator 35 03/08/17 12:20 99 28 100 Mechanical Ventilator 35 03/08/17 12:20 35 03/08/17 12:00 29 03/08/17 12:00 98 03/08/17 12:00 35 03/08/17 12:00 99.5 100 29 90/50 99 Mechanical Ventilator 35 03/08/17 11:30 104 38 106/53 95 Mechanical Ventilator 35 03/08/17 11:12 105 35 50 03/08/17 11:00 101 32 93/44 97 Mechanical Ventilator 35 03/08/17 11:00 32 03/08/17 10:30 100 34 157/58 99 Mechanical Ventilator 50 03/08/17 10:00 41 03/08/17 10:00 100 41 146/78 98 Mechanical Ventilator 50 Height (Feet): 5 Height (Inches): 9.00 Weight (Pounds): 130 Objective General Appearance: other - Intubated, limited eval as patient is not following commands EENT: PERRL/EOMI Neck: supple Cardiovascular: tachycardia Respiratory/Chest: rhonchi - bilaterally Abdomen: soft Extremities: other - cachectic appearance Neurologic: other - limited eval as patient is not following commands Microbiology Date/Time Source Procedure Growth Status 03/06/17 18:00 Blood Blood Culture - Preliminary NO GROWTH AFTER 48 HOURS Resulted 03/06/17 18:00 Blood Blood Culture - Preliminary NO GROWTH AFTER 48 HOURS Resulted Laboratory Tests Test 03/08/17 09:50 03/08/17 14:30 03/09/17 08:10 Vancomycin Level Trough 15.4 ug/mL (5.0-12.0) H Troponin I 0.413 ng/mL (0.000-0.056) White Blood Count 13.1 K/UL (4.8-10.8) H Red Blood Count 4.09 M/UL (4.70-6.10) L Hemoglobin 11.9 G/DL (14.2-18.0) L Hematocrit 38.3 % (42.0-52.0) L Mean Corpuscular Volume 94 FL (80-99) Mean Corpuscular Hemoglobin 29.2 PG (27.0-31.0) Mean Corpuscular Hemoglobin Concent 31.2 G/DL (32.0-36.0) L Red Cell Distribution Width 13.1 % (11.6-14.8) Platelet Count 183 K/UL (150-450) Mean Platelet Volume 9.1 FL (6.5-10.1) Neutrophils (%) (Auto) 82.2 % (45.0-75.0) H Lymphocytes (%) (Auto) 6.7 % (20.0-45.0) L Monocytes (%) (Auto) 9.4 % (1.0-10.0) Eosinophils (%) (Auto) 1.1 % (0.0-3.0) Basophils (%) (Auto) 0.7 % (0.0-2.0) Sodium Level 147 MMOL/L (136-145) H Potassium Level 3.3 MMOL/L (3.5-5.1) L Chloride Level 116 MMOL/L (98-107) H Carbon Dioxide Level 23 MMOL/L (21-32) Anion Gap 8 mmol/L (5-15) Blood Urea Nitrogen 13 mg/dL (7-18) Creatinine 1.2 MG/DL (0.55-1.30) Estimat Glomerular Filtration Rate > 60 mL/min (>60) Glucose Level 118 MG/DL (74-106) H Calcium Level 7.3 MG/DL (8.5-10.1) L Total Bilirubin 1.0 MG/DL (0.2-1.0) Aspartate Amino Transf (AST/SGOT) 61 U/L (15-37) H Alanine Aminotransferase (ALT/SGPT) 31 U/L (12-78) Alkaline Phosphatase 87 U/L (46-116) Total Protein 6.0 G/DL (6.4-8.2) L Albumin 1.5 G/DL (3.4-5.0) L Globulin 4.5 g/dL Albumin/Globulin Ratio 0.3 (1.0-2.7) L Current Medications Medications (Trade) Dose Ordered Sig/Ant Route PRN Reason Start Time Stop Time Status Last Admin Dose Admin Acetaminophen (Tylenol) 650 mg Q4H PRN ORAL Mild Pain/Temp > 100.5 03/04/17 08:45 04/03/17 08:44 03/08/17 21:50 Albuterol/ Ipratropium (Albuterol/ Ipratropium) 3 ml Q6HRT HHN 03/04/17 13:00 03/09/17 12:59 03/09/17 08:37 Artificial Tears (Akwa-Tears) 2 drop Q2H PRN BOTH EYES Dry Eyes 03/09/17 09:15 04/08/17 09:14 Aspirin (ASA) 81 mg DAILY NG 03/06/17 14:15 04/05/17 14:14 03/09/17 08:19 Chlorhexidine Gluconate (Lisa-Hex 2%) 1 applic Q24H TOPIC 03/07/17 20:00 04/06/17 19:59 03/08/17 20:09 Fentanyl Citrate 2500 mcg/Sodium Chloride 250 ml @ 0 mls/hr Q24H IV 03/06/17 21:00 03/13/17 20:59 03/08/17 21:14 Heparin Sodium (Porcine) (Heparin 5000 units/ml) 5,000 units EVERY 12 HOURS SUBQ 03/04/17 21:00 04/03/17 20:59 03/09/17 08:22 Lorazepam (Ativan 2mg/ml 1ml) 1 mg Q4H PRN IV For Anxiety 03/04/17 09:30 03/11/17 09:29 03/08/17 10:08 Meropenem 1 gm/ Sodium Chloride 55 ml @ 110 mls/hr Q12HR@0600,1800 IVPB 03/07/17 18:00 03/12/17 17:59 03/09/17 05:44 Midazolam HCl (Versed 2mg/2ml vial) 1 mg Q2H PRN IVP agitation 03/04/17 11:45 04/03/17 11:44 03/09/17 06:12 Pantoprazole (Protonix) 40 mg Q12HR IVP 03/04/17 21:00 04/03/17 20:59 03/09/17 08:19 Alise Polanco M.D. Mar 09, 2017 09:31
[2017-03-09 09:57] LABS: PHOSPHORUS 1.9 MG/DL (2.5-4.9)
[2017-03-09] MEDS ORDERED: Lidocaine 1% Plain 30 ml INJ PRN (10:00)
[2017-03-09] MEDS ORDERED: Heparin 2000 units/Ns 1000ml INJ PRN (10:00)
--- NOTE | 2017-03-09 10:21 | Pulmonolgy Critical Care Note ---
Critical Care - Asmt/Plan Assessment/Plan: ASSESSMENT sepsis with shock (resolved shock) acute hypoxemic RF requiring intubation 03/04 bacteremia with Aerococcus PNA with E coli ESBL possible UTI acute renal failure possible ATN dehydration Hypernatremia ( due to free water deficit) e/lyte imbalance : hypo K, hypo P moderate pulmonary HTN COPD Alzheimer dementia severe protein calorie malnutrition elevated AST Hx of HTN thrombocytopenia dysphagia OA PLAN OF CARE ICU care vent support, pulmonary toilet this am start weaning protocol as ordered: hold sedation, with PS 8 and PEEP 5, ABG in 1 hr if stable, will extubate daily CXR and ABG while intubated abx, ID follows sputum cx + E coli ESBL, urine cx negative, initially 03/18 blood cx + Aerococcus , repeated blood cx negative UTD, ID wants to r/o endocarditis ECHO with grossly preserved EF and nprmal wal motion to the extent visualized, + evidence of moderate pulmonary HTN PICC today and sent CL tip for cx renal parameters improving, Na down nephro follows s/p IVF replace K and P, check in am monitor cardiorenal parameters, volumes, avoid nephrotoxic cardio follows troponin noted fup with cardio recommendation: ASA, BB, no need for diuresis for now ECHO pending DVT GI prophylaxis monitor counts,heme follows monitor LFT, abdominal US strict aspiration precautions, NGT feeding dietary recom re TF type and goal wound care pain management bowel regimen Case discussed and evaluated by supervising physician Critical Care - Objective Last 24 Hour Vital Signs Date Time Temp Pulse Resp B/P (MAP) Pulse Ox O2 Delivery O2 Flow Rate FiO2 03/09/17 10:00 106 31 160/75 100 Mechanical Ventilator 35 03/09/17 09:24 99 03/09/17 09:00 114 42 106/60 100 Mechanical Ventilator 35 03/09/17 08:53 102 41 35 03/09/17 08:49 35 03/09/17 08:49 99 40 100 Mechanical Ventilator 35 03/09/17 08:37 100 26 99 Mechanical Ventilator 35 03/09/17 08:30 110 40 108/58 100 Mechanical Ventilator 35 03/09/17 08:00 100 03/09/17 08:00 98.5 100 36 127/69 100 Mechanical Ventilator 35 03/09/17 08:00 35 03/09/17 07:30 100 36 110/60 100 Mechanical Ventilator 35 03/09/17 07:03 100 38 35 12/26/17 07:00 32 03/09/17 07:00 100 36 106/56 100 Mechanical Ventilator 35 03/09/17 06:30 102 36 172/73 98 Mechanical Ventilator 35 03/09/17 06:00 105 36 172/73 98 Mechanical Ventilator 35 03/09/17 06:00 40 03/09/17 05:35 101 33 50 03/09/17 05:30 107 32 133/60 98 Mechanical Ventilator 35 03/09/17 05:00 99 32 133/60 98 Mechanical Ventilator 35 03/09/17 04:30 105 38 103/55 96 Mechanical Ventilator 35 03/09/17 04:00 109 03/09/17 04:00 35 03/09/17 04:00 39 03/09/17 04:00 98.7 101 31 153/69 96 Mechanical Ventilator 35 03/09/17 03:44 96 34 50 03/09/17 03:30 97 31 124/61 97 Mechanical Ventilator 35 03/09/17 03:00 33 03/09/17 03:00 95 28 123/55 98 Mechanical Ventilator 35 03/09/17 02:30 96 29 96/47 96 Mechanical Ventilator 35 03/09/17 02:00 97 33 93/50 96 Mechanical Ventilator 35 03/09/17 02:00 30 03/09/17 01:44 89 25 98 Mechanical Ventilator 35 03/09/17 01:36 100 36 95 Mechanical Ventilator 35 03/09/17 01:36 35 03/09/17 01:35 100 38 50 03/09/17 01:30 99 31 128/61 94 Mechanical Ventilator 35 03/09/17 01:00 95 31 90/50 94 Mechanical Ventilator 35 03/09/17 01:00 30 03/09/17 00:30 96 30 101/62 96 Mechanical Ventilator 35 03/09/17 00:00 99.3 98 31 140/61 96 Mechanical Ventilator 35 03/09/17 00:00 35 03/09/17 00:00 30 03/09/17 00:00 98 03/08/17 23:55 97 26 50 03/08/17 23:30 101 31 90/50 94 Mechanical Ventilator 35 03/08/17 23:00 34 03/08/17 23:00 102 31 94/49 94 Mechanical Ventilator 35 03/08/17 22:49 100.1 03/08/17 22:30 104 31 102/55 94 Mechanical Ventilator 35 03/08/17 22:00 101 29 101/55 97 Mechanical Ventilator 35 03/08/17 22:00 25 03/08/17 21:30 100.7 100 30 84/38 97 Mechanical Ventilator 35 03/08/17 21:14 28 03/08/17 21:05 97 29 95 Mechanical Ventilator 35 03/08/17 21:00 25 03/08/17 21:00 101 29 108/50 97 Mechanical Ventilator 35 03/08/17 20:55 96 28 100 Mechanical Ventilator 35 03/08/17 20:55 35 03/08/17 20:54 99 32 50 03/08/17 20:30 100 32 102/50 96 Mechanical Ventilator 35 03/08/17 20:00 101 03/08/17 20:00 101 28 123/61 95 Mechanical Ventilator 35 03/08/17 20:00 22 03/08/17 20:00 35 03/08/17 19:30 98 28 94/41 95 Mechanical Ventilator 35 03/08/17 19:00 99.3 99 27 90/44 95 Mechanical Ventilator 35 03/08/17 19:00 30 03/08/17 18:30 98 28 92/49 95 Mechanical Ventilator 35 03/08/17 18:00 103 38 144/71 95 Mechanical Ventilator 35 03/08/17 18:00 38 03/08/17 17:30 99 28 91/46 96 Mechanical Ventilator 35 03/08/17 17:04 106 38 50 03/08/17 17:00 33 03/08/17 17:00 102 33 106/48 97 Mechanical Ventilator 35 03/08/17 16:30 102 34 111/55 95 Mechanical Ventilator 35 03/08/17 16:00 99.0 97 27 97/47 97 Mechanical Ventilator 35 17 16:00 27 03/08/17 16:00 35 03/08/17 16:00 98 03/08/17 15:30 98 29 91/49 97 Mechanical Ventilator 35 03/08/17 15:00 98 27 102/64 97 Mechanical Ventilator 35 03/08/17 15:00 27 03/08/17 14:50 98 28 50 03/08/17 14:30 101 25 91/48 96 Mechanical Ventilator 35 03/08/17 14:00 98 24 88/47 100 Mechanical Ventilator 35 03/08/17 14:00 24 03/08/17 13:30 100 23 89/46 100 Mechanical Ventilator 35 03/08/17 13:00 98 24 98/53 99 Mechanical Ventilator 35 03/08/17 13:00 23 03/08/17 12:30 100 30 103/50 98 Mechanical Ventilator 35 03/08/17 12:30 99 28 50 03/08/17 12:30 98 29 98 Mechanical Ventilator 35 03/08/17 12:20 99 28 100 Mechanical Ventilator 35 03/08/17 12:20 35 03/08/17 12:00 29 03/08/17 12:00 98 03/08/17 12:00 35 03/08/17 12:00 99.5 100 29 90/50 99 Mechanical Ventilator 35 03/08/17 11:30 104 38 106/53 95 Mechanical Ventilator 35 03/08/17 11:12 105 35 50 03/08/17 11:00 101 32 93/44 97 Mechanical Ventilator 35 03/08/17 11:00 32 03/08/17 10:30 100 34 157/58 99 Mechanical Ventilator 50 Status: sedated, other - on Vent AC 450-16-35% Condition: critical HEENT: atraumatic, normocephalic, other - OP with ET in place, intact, NGT with TF Lungs: clear Heart: HR/BP stable Abdomen: soft, non-tender, active bowel sounds Extremities: no C/C/E Micro: Microbiology Date/Time Source Procedure Growth Status 03/06/17 18:00 Blood Blood Culture - Preliminary NO GROWTH AFTER 48 HOURS Resulted 03/06/17 18:00 Blood Blood Culture - Preliminary NO GROWTH AFTER 48 HOURS Resulted Critical Care - Subjective ROS Limited/Unobtainable: Yes Interval Events: remains intubated no signs of respiratory distress failed SBT yesterday plan for weaning protocol this am as tolerated leukocytosis trending down, afebrile creat trending down to normal K-3,3. Na down to 147, P-1.9 Condition: critical IV Access: central - R femoral EKG Rhythm: Sinus Rhythm FI02: 35 Vent Support Breath Rate: 16 Vent Support Mode: AC Vent Tidal Volume: 450 Sputum Amount: Small PEEP: 5.0 PIP: 27 Fluids: D5NS at 50 -dc Drips: Fentanyl gtt at 8 ml/hr Tube Feeding Amount: 55 I&O: Intake and Output 03/08/17 03/09/17 19:00 07:00 Intake Total 1299.667 ml 1012 ml Output Total 1035 ml 845 ml Balance 264.667 ml 167 ml Free Water 280 ml 300 ml IV Total 599.667 ml 82 ml Tube Feeding 370 ml 570 ml Other 50 ml 60 ml Output Urine Total 1035 ml 845 ml # Bowel Movements 1 ET-Tube: 7.5 ET Position: 25 Mane ([facility]),Kacy DELACRUZ Mar 09, 2017 10:21
--- NOTE | 2017-03-09 10:24 | Pulmonology Progress Note ---
Assessment/Plan Assessment/Plan Patient needs removal of CL and placement of PICC line as per ID recommendation due to persistent leukocytosis and sepsis Patient has no immediate family or DPOA Procedure is urgent due to sepsis Mane (Kacy Thacker NP Mar 09, 2017 10:24
[2017-03-09] MEDS: LORazepam Inj 2mg/ml 1ml IV PRN ×2 (11:16→19:50)
[2017-03-09] MEDS ORDERED: Potassium Phosphate 15 MM in NS 275 ML IV ONE (11:30)
--- NOTE | 2017-03-09 15:38 | Diagnostic Imaging Report ---
Indication: Dyspnea Comparison: 03/04/2017 A single view chest radiograph was obtained. Findings: New infiltrate demonstrated in the right lung. Persistent volume loss bilaterally noted. Tubes and lines are stable. IMPRESSION: New right pulmonary infiltrate.
--- NOTE | 2017-03-09 16:18 | Diagnostic Imaging Report ---
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 The left upper extremity was prepped with alcohol. All elements of maximal sterile barrier technique were followed including usage of a cap, mask, sterile gown, sterile gloves, hand hygiene and a large sterile sheet. Sonographic evaluation of the upper extremity was performed demonstrating a patent and compressible basilic vein. Access was obtained under real-time ultrasound guidance (with utilization of sterile gel and sterile probe cover) and digital image was saved and archived. An .018 wire was introduced. Needle exchanged for a 5 Polish peel-away sheath. Measurements were obtained. A 5 Polish dual-lumen Power PICC line catheter was cut to 39 cm and introduced over the wire. Peel-away sheath and wire were removed.Catheter was secured to the skin using 2-0 Prolene suture. Both ports aspirate and flush easily. Post procedure chest x-ray demonstrates good position of the PICC line catheter within the SVC. Impression: Successful placement of an upper extremity PICC line catheter
[2017-03-09] MEDS ORDERED: NS 275ml ONE (17:08)
[2017-03-09] MEDS: Artificial Tears 1.4% Op Soln BOTH EYES PRN (17:39)
[2017-03-09] MEDS: Dyna-Hex 2% Top Sol 2oz TOPIC SCH ×2 (19:50→20:00)
[2017-03-09] MEDS: fentaNYL Citrate 2500mcg in NS 250ml IV SCH (21:14)
--- NOTE | 2017-03-09 23:15 | General Progress Note ---
Assessment/Plan Assessment/Plan Assessment/Plan #. Respiratory failure, currently on a vent. unable to wean #. Sepsis. ID following #. Bacteremia #. PNA? #. Acute anemia. Hgb goal above 7. Transfuse as needed #. COPD #. Hypokalemia. #. Hypernatremia. #.Continue DVT prophylaxis with heparin subcutaneous Subjective Hematologic/Lymphatic: Reports: anemia Allergies: Coded Allergies: No Known Allergies (Unverified , 10/20/16) All Systems: reviewed and negative except above Subjective intubated Objective Last 24 Hour Vital Signs Date Time Temp Pulse Resp B/P (MAP) Pulse Ox O2 Delivery O2 Flow Rate FiO2 03/09/17 22:52 102 31 40 03/09/17 21:14 31 03/09/17 21:00 30 03/09/17 20:36 101 31 100 Mechanical Ventilator 35 03/09/17 20:33 102 40 40 03/09/17 20:27 110 41 Mechanical Ventilator 40 03/09/17 20:27 109 41 40 03/09/17 20:26 35 03/09/17 20:26 110 41 97 Mechanical Ventilator 35 03/09/17 20:00 35 03/09/17 20:00 35 03/09/17 19:00 35 03/09/17 19:00 106 34 116/69 98 Mechanical Ventilator 35 03/09/17 18:00 30 03/09/17 18:00 106 34 133/76 100 Mechanical Ventilator 35 03/09/17 17:30 108 34 148/68 100 Mechanical Ventilator 35 03/09/17 17:18 100 34 35 03/09/17 17:00 106 34 150/76 100 Mechanical Ventilator 35 03/09/17 17:00 32 03/09/17 16:30 106 34 145/62 100 Mechanical Ventilator 35 03/09/17 16:00 98.8 104 33 153/73 100 Mechanical Ventilator 35 03/09/17 16:00 104 03/09/17 16:00 35 03/09/17 16:00 32 03/09/17 15:30 103 34 130/62 100 Mechanical Ventilator 35 03/09/17 15:08 104 40 35 03/09/17 15:00 105 31 99/54 100 Mechanical Ventilator 35 03/09/17 15:00 30 03/09/17 14:30 99 31 111/44 100 Mechanical Ventilator 35 03/09/17 14:00 98 31 110/46 100 Mechanical Ventilator 35 03/09/ 14:00 32 03/09/17 13:32 102 16 100 Mechanical Ventilator 35 03/09/17 13:32 35 03/09/17 13:30 100 31 114/53 100 Mechanical Ventilator 35 03/09/ 13:27 100 19 35 03/09/17 13:25 100 24 98 Mechanical Ventilator 35 03/09/17 13:00 101 34 109/55 100 Mechanical Ventilator 35 03/09/17 13:00 35 03/09/17 12:30 102 30 100/52 100 Mechanical Ventilator 35 03/09/17 12:00 105 03/09/17 12:00 98.6 105 34 102/51 100 Mechanical Ventilator 35 03/09/17 12:00 35 03/09/17 12:00 35 03/09/17 11:30 104 34 108/59 100 Mechanical Ventilator 35 03/09/17 11:20 115 38 35 03/09/17 11:00 100 34 116/52 100 Mechanical Ventilator 35 03/09/17 11:00 35 03/09/17 10:30 102 30 131/89 98 Mechanical Ventilator 35 03/09/17 10:00 106 31 160/75 100 Mechanical Ventilator 35 03/09/17 10:00 40 03/09/17 09:30 104 30 116/52 100 Mechanical Ventilator 35 03/09/17 09:24 99 03/09/17 09:00 33 03/09/17 09:00 114 42 106/60 100 Mechanical Ventilator 35 03/09/17 08:53 102 41 35 03/09/17 08:49 35 03/09/17 08:49 99 40 100 Mechanical Ventilator 35 03/09/17 08:37 100 26 99 Mechanical Ventilator 35 03/09/17 08:30 110 40 108/58 100 Mechanical Ventilator 35 03/09/17 08:00 100 03/09/17 08:00 98.5 100 36 127/69 100 Mechanical Ventilator 35 03/09/17 08:00 32 03/09/17 08:00 35 03/09/17 07:30 100 36 110/60 100 Mechanical Ventilator 35 03/09/17 07:03 100 38 35 03/09/17 07:00 32 03/09/17 07:00 100 36 106/56 100 Mechanical Ventilator 35 03/09/17 06:30 102 36 172/73 98 Mechanical Ventilator 35 03/09/17 06:00 105 36 172/73 98 Mechanical Ventilator 35 03/09/17 06:00 40 03/09/17 05:35 101 33 50 03/09/17 05:30 107 32 133/60 98 Mechanical Ventilator 35 03/09/17 05:00 99 32 133/60 98 Mechanical Ventilator 35 03/09/17 04:30 105 38 103/55 96 Mechanical Ventilator 35 03/09/17 04:00 109 03/09/17 04:00 35 03/09/17 04:00 39 03/09/17 04:00 98.7 101 31 153/69 96 Mechanical Ventilator 35 03/09/17 03:44 96 34 50 03/09/17 03:30 97 31 124/61 97 Mechanical Ventilator 35 03/09/17 03:00 33 03/09/17 03:00 95 28 123/55 98 Mechanical Ventilator 35 03/09/17 02:30 96 29 96/47 96 Mechanical Ventilator 35 03/09/17 02:00 97 33 93/50 96 Mechanical Ventilator 35 03/09/17 02:00 30 03/09/17 01:44 89 25 98 Mechanical Ventilator 35 03/09/17 01:36 100 36 95 Mechanical Ventilator 35 03/09/17 01:36 35 03/09/17 01:35 100 38 50 03/09/17 01:30 99 31 128/61 94 Mechanical Ventilator 35 03/09/17 01:00 95 31 90/50 94 Mechanical Ventilator 35 03/09/17 01:00 30 03/09/17 00:30 96 30 101/62 96 Mechanical Ventilator 35 03/09/17 00:00 99.3 98 31 140/61 96 Mechanical Ventilator 35 03/09/17 00:00 35 03/09/17 00:00 30 03/09/17 00:00 98 03/08/17 23:55 97 26 50 03/08/17 23:30 101 31 90/50 94 Mechanical Ventilator 35 Intake and Output 03/08/17 03/09/17 19:00 07:00 Intake Total 1299.667 ml 1012 ml Output Total 1035 ml 845 ml Balance 264.667 ml 167 ml Free Water 280 ml 300 ml IV Total 599.667 ml 82 ml Tube Feeding 370 ml 570 ml Other 50 ml 60 ml Output Urine Total 1035 ml 845 ml # Bowel Movements 1 Laboratory Tests 03/09/17 08:10: White Blood Count 13.1H, Red Blood Count 4.09L, Hemoglobin 11.9L, Hematocrit 38.3L, Mean Corpuscular Volume 94, Mean Corpuscular Hemoglobin 29.2, Mean Corpuscular Hemoglobin Concent 31.2L, Red Cell Distribution Width 13.1, Platelet Count 183, Mean Platelet Volume 9.1, Neutrophils (%) (Auto) 82.2H, Lymphocytes (%) (Auto) 6.7L, Monocytes (%) (Auto) 9.4, Eosinophils (%) (Auto) 1.1, Basophils (%) (Auto) 0.7, Sodium Level 147H, Potassium Level 3.3L, Chloride Level 116H, Carbon Dioxide Level 23, Anion Gap 8, Blood Urea Nitrogen 13, Creatinine 1.2, Estimat Glomerular Filtration Rate > 60, Glucose Level 118H , Calcium Level 7.3L, Phosphorus Level 1.9L, Magnesium Level 2.2, Total Bilirubin 1.0, Aspartate Amino Transf (AST/SGOT) 61H, Alanine Aminotransferase ( ALT/SGPT) 31, Alkaline Phosphatase 87, Total Protein 6.0L, Albumin 1.5L, Globulin 4.5, Albumin/Globulin Ratio 0.3L 03/09/17 11:09: Arterial Blood pH 7.350, Arterial Blood Partial Pressure CO2 41.6, Arterial Blood Partial Pressure O2 60.4L, Arterial Blood HCO3 22.7, Arterial Blood Oxygen Saturation 90.1L, Arterial Blood Base Excess 2.7, Ulises Test Positive Height (Feet): 5 Height (Inches): 9.00 Weight (Pounds): 130 General Appearance: no apparent distress EENT: TMs normal Neck: normal alignment Cardiovascular: normal peripheral pulses, normal rate 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
[2017-03-10] VITALS (38 sets, daily range): BP systolic 86–120; BP diastolic 40–85
[2017-03-10] MEDS: Albuterol/Ipratropium 3ml neb HHN SCH ×4 (01:56→19:16)
--- NOTE | 2017-03-10 03:00 | Progress Note ---
DATE: 03/09/2017 CARDIOLOGY PROGRESS NOTE SUBJECTIVE: The central venous lumen access was removed. The PICC line is in place. Blood pressure parameters have improved. OBJECTIVE: VITAL SIGNS: Blood pressure 106/61, respirations 14, and pulse 42. LUNGS: Coarse breath sounds. HEART: Regular rhythm. Rapid rate. Normal S1 and S2. ABDOMEN: Soft and nontender. EXTREMITIES: Trace dependent edema. LABORATORY DATA: White count 13 and hemoglobin 11.9. Sodium 147, potassium 3.3, chloride 116, bicarbonate 23, BUN 13, and creatinine 1.2. Magnesium 2.2. Phosphorus 1.9. Albumin 1.5. IMPRESSION: 1. Respiratory failure. 2. Sepsis with shock. 3. Acute myocardial infarction. 4. Hypokalemia. 5. Dehydration. 6. Hypernatremia. 7. Hypophosphatemia. 8. Severe protein-calorie malnutrition. 9. Anemia. 10. Sepsis with significant shock. PLAN: 1. Free water replacement. 2. Antimicrobials. 3. Ventilator support. 4. Anti-platelet therapy. 5. Replace phosphorus. 6. Replace free water by IV route. 7. Ventilator support with weaning as able. 8. Consider beta-blockade once off pressors with stable hemodynamic parameters. Manuel Manning M.D. DR: JUAN JOB#: [id number] CC:
[2017-03-10 05:33] LABS: BASOPHILS % (AUTO) 0.4 % (0.0-2.0); EOSINOPHILS % (AUTO) 2.4 % (0.0-3.0); HEMATOCRIT 34.8 % (42.0-52.0); HEMOGLOBIN 10.9 G/DL (14.2-18.0); LYMPHOCYTES % (AUTO) 13.1 % (20.0-45.0); MEAN CORPUSCULAR VOLUME 93 FL (80-99); NEUTROPHILS % (AUTO) 76.1 % (45.0-75.0); PLATELET COUNT 211 K/UL (150-450); RED BLOOD COUNT 3.73 M/UL (4.70-6.10); RED CELL DISTRIBUTION WIDTH 13.4 % (11.6-14.8); WHITE BLOOD COUNT 12.6 K/UL (4.8-10.8)
[2017-03-10] MEDS: Meropenem 1gm in NS 55ml IVPB SCH ×2 (06:02→17:46)
[2017-03-10 06:05] LABS: % IRON SATURATION 9 % (15-50); IRON 11 ug/dL (50-175); TOTAL IRON BINDING CAPACITY 118 ug/dL (250-450)
[2017-03-10 06:08] LABS: ANION GAP 7 mmol/L (5-15); BLOOD UREA NITROGEN 15 mg/dL (7-18); CALCIUM 7.1 MG/DL (8.5-10.1); CARBON DIOXIDE 26 MMOL/L (21-32); CHLORIDE 117 MMOL/L (98-107); CREATININE 1.2 MG/DL (0.55-1.30); SODIUM 150 MMOL/L (136-145)
[2017-03-10 06:18] LABS: FERRITIN 554 NG/ML (8-388)
[2017-03-10] MEDS: LORazepam Inj 2mg/ml 1ml IV PRN (08:39)
[2017-03-10] MEDS: Pantoprazole Inj IVP SCH ×2 (08:39→21:40)
[2017-03-10] MEDS: Aspirin Baby 81mg NG SCH (08:41)
[2017-03-10] MEDS: Heparin 5000 units/ml inj SUBQ SCH ×2 (08:41→21:44)
[2017-03-10] MEDS ORDERED: Potassium Phosphate 20 MM in NS 275 ML IV ONE (09:00)
--- NOTE | 2017-03-10 10:10 | Infectious Diseases Prog Note ---
Assessment/Plan Assessment/Plan ASSESSMENT: The patient is a 71-year-old male with: +ve blood Cx : Aerococcus urinae- ?source UTI however Ucx neg; r/o endocarditis as has been associated with endocarditis in the elderly. -03/03 Bcx 1/4 +; 03/06 NTD x4 -Elevated CRp 21.0 03/06 -03/03 TTE: no vegetations, no significant valve abnormalities Sepsis. Leukocytosis , improving Intermittent low grade fevers Probable underlying pneumonia. Scx : ESBL EColi ; now new infiltrate- r/o superinfection with another bacteria -CXR 03/09: New right pulmonary infiltrate. May need to rule out intra-abdominal sepsis if the patient's white blood cell does not improve Possible urinary tract infection Influenza negative AST Elevation Positive cardiac enzymes. Acute renal failure, improving Dysphagia. Osteoarthritis. Hypertension. COPD. History of GERD History of H. pylori in the past Dementia with psychosis PLAN: continue IV Merrem d# 4 /10-14 03/08 SP vancomycin d# 5 03/07 SP Zosyn d# 4 repeat sputum cx Monitor CBC/CMP.; ESR, CRP, CBC am Monitor cultures (blood ) Monitor chest x-ray. Monitor renal function. f/u US of Abd Subjective Allergies: Coded Allergies: No Known Allergies (Unverified , 10/20/16) Subjective intermittent low grade fevers Tm 100.1 leukocytosis improving repeat Bcx NTD new infiltrate on CXR, reamins at 40% Fio2, intubated Objective Vital Signs Last 24 Hour Vital Signs Date Time Temp Pulse Resp B/P (MAP) Pulse Ox O2 Delivery O2 Flow Rate FiO2 03/10/17 09:29 97 25 40 03/10/17 07:44 96 23 100 Mechanical Ventilator 40 03/10/17 07:30 97 32 100 Mechanical Ventilator 40 03/10/17 07:29 100 31 40 03/10/17 07:00 33 03/10/17 07:00 93 35 102/56 98 Mechanical Ventilator 40 03/10/17 06:30 94 31 105/61 97 Mechanical Ventilator 40 03/10/17 06:00 94 31 105/61 97 Mechanical Ventilator 40 03/10/17 06:00 32 03/10/17 05:30 94 31 119/60 96 Mechanical Ventilator 40 03/10/17 05:16 94 32 40 03/10/17 05:00 97 26 113/52 99 Mechanical Ventilator 40 03/10/17 05:00 30 03/10/17 04:30 97 26 113/57 99 Mechanical Ventilator 40 03/10/17 04:00 99.1 92 26 117/85 99 Mechanical Ventilator 40 03/10/17 04:00 93 03/10/17 04:00 26 03/10/17 04:00 40 03/10/17 03:35 105 18 40 03/10/17 03:30 93 26 94/56 99 Mechanical Ventilator 40 03/10/17 03:00 93 26 101/49 99 Mechanical Ventilator 40 03/10/17 03:00 26 03/10/17 02:30 94 25 96/52 99 Mechanical Ventilator 40 03/10/17 02:13 108 32 100 Mechanical Ventilator 35 03/10/17 02:00 95 16 106/55 99 Mechanical Ventilator 40 03/10/17 02:00 16 03/10/17 01:57 35 03/10/17 01:56 107 16 40 03/10/17 01:56 98 16 100 Mechanical Ventilator 35 03/10/17 01:30 97 27 90/48 99 Mechanical Ventilator 40 03/10/17 01:25 99.9 03/10/17 01:00 98 35 91/52 99 Mechanical Ventilator 40 03/10/17 01:00 29 03/10/17 00:30 99 35 96/52 99 Mechanical Ventilator 40 03/10/17 00:00 100.1 100 29 97/53 99 Mechanical Ventilator 40 03/10/17 00:00 33 03/10/17 00:00 35 03/10/17 00:00 101 03/09/17 23:30 102 35 99/54 99 Mechanical Ventilator 40 03/09/17 23:00 30 03/09/17 23:00 102 35 96/54 99 Mechanical Ventilator 40 03/09/17 22:52 102 31 40 03/09/17 22:30 103 29 99/50 100 Mechanical Ventilator 40 03/09/17 22:00 104 34 100/55 96 Mechanical Ventilator 40 03/09/17 22:00 35 03/09/17 21:30 104 34 101/58 98 Mechanical Ventilator 40 03/09/17 21:14 31 03/09/17 21:00 105 34 100/54 98 Mechanical Ventilator 40 03/09/17 21:00 30 03/09/17 20:36 101 31 100 Mechanical Ventilator 35 03/09/17 20:33 102 40 40 03/09/17 20:30 109 34 101/48 98 Mechanical Ventilator 40 03/09/17 20:27 110 41 Mechanical Ventilator 40 03/09/17 20:27 109 41 40 03/09/17 20:26 35 03/09/17 20:26 110 41 97 Mechanical Ventilator 35 03/09/17 20:00 109 34 101/48 98 Mechanical Ventilator 35 03/09/17 20:00 35 03/09/17 20:00 35 03/09/17 20:00 115 03/09/17 19:30 98.3 116 34 119/67 98 Mechanical Ventilator 35 03/09/17 19:00 35 03/09/17 19:00 106 34 116/69 98 Mechanical Ventilator 35 03/09/17 18:00 30 03/09/17 18:00 106 34 133/76 100 Mechanical Ventilator 35 03/09/17 17:30 108 34 148/68 100 Mechanical Ventilator 35 03/09/17 17:18 100 34 35 03/09/17 17:00 106 34 150/76 100 Mechanical Ventilator 35 03/09/17 17:00 32 03/09/17 16:30 106 34 145/62 100 Mechanical Ventilator 35 03/09/17 16:00 98.8 104 33 153/73 100 Mechanical Ventilator 35 03/09/17 16:00 104 03/09/17 16:00 35 03/09/17 16:00 32 03/09/17 15:30 103 34 130/62 100 Mechanical Ventilator 35 03/09/17 15:08 104 40 35 03/09/17 15:00 105 31 99/54 100 Mechanical Ventilator 35 03/09/17 15:00 30 03/09/17 14:30 99 31 111/44 100 Mechanical Ventilator 35 03/09/17 14:00 98 31 110/46 100 Mechanical Ventilator 35 03/09/17 14:00 32 03/09/17 13:32 102 16 100 Mechanical Ventilator 35 03/09/17 13:32 35 03/09/17 13:30 100 31 114/53 100 Mechanical Ventilator 35 03/09/ 13:27 100 19 35 03/09/17 13:25 100 24 98 Mechanical Ventilator 35 03/09/17 13:00 101 34 109/55 100 Mechanical Ventilator 35 03/09/17 13:00 35 03/09/17 12:30 102 30 100/52 100 Mechanical Ventilator 35 03/09/17 12:00 105 03/09/17 12:00 98.6 105 34 102/51 100 Mechanical Ventilator 35 03/09/17 12:00 35 03/09/17 12:00 35 03/09/17 11:30 104 34 108/59 100 Mechanical Ventilator 35 03/09/17 11:20 115 38 35 03/09/17 11:00 100 34 116/52 100 Mechanical Ventilator 35 03/09/17 11:00 35 03/09/17 10:30 102 30 131/89 98 Mechanical Ventilator 35 03/09/17 10:00 106 31 160/75 100 Mechanical Ventilator 35 03/09/17 10:00 40 Height (Feet): 5 Height (Inches): 9.00 Weight (Pounds): 130 Objective General Appearance: other - Intubated, limited eval as patient is not following commands EENT: PERRL/EOMI Neck: supple Cardiovascular: tachycardia Respiratory/Chest: rhonchi - bilaterally Abdomen: soft Extremities: other - cachectic appearance Neurologic: other - limited eval as patient is not following commands Laboratory Tests Test 03/09/17 11:09 03/10/17 05:00 Arterial Blood pH 7.350 (7.350-7.450) Arterial Blood Partial Pressure CO2 41.6 mmHg (35.0-45.0) Arterial Blood Partial Pressure O2 60.4 mmHg (75.0-100.0) L Arterial Blood HCO3 22.7 mmol/L (22.0-26.0) Arterial Blood Oxygen Saturation 90.1 % (92.0-98.0) L Arterial Blood Base Excess 2.7 Ulises Test Positive White Blood Count 12.6 K/UL (4.8-10.8) H Red Blood Count 3.73 M/UL (4.70-6.10) L Hemoglobin 10.9 G/DL (14.2-18.0) L Hematocrit 34.8 % (42.0-52.0) L Mean Corpuscular Volume 93 FL (80-99) Mean Corpuscular Hemoglobin 29.3 PG (27.0-31.0) Mean Corpuscular Hemoglobin Concent 31.4 G/DL (32.0-36.0) L Red Cell Distribution Width 13.4 % (11.6-14.8) Platelet Count 211 K/UL (150-450) Mean Platelet Volume 8.9 FL (6.5-10.1) Neutrophils (%) (Auto) 76.1 % (45.0-75.0) H Lymphocytes (%) (Auto) 13.1 % (20.0-45.0) L Monocytes (%) (Auto) 8.0 % (1.0-10.0) Eosinophils (%) (Auto) 2.4 % (0.0-3.0) Basophils (%) (Auto) 0.4 % (0.0-2.0) Sodium Level 150 MMOL/L (136-145) H Potassium Level 3.0 MMOL/L (3.5-5.1) L Chloride Level 117 MMOL/L (98-107) H Carbon Dioxide Level 26 MMOL/L (21-32) Anion Gap 7 mmol/L (5-15) Blood Urea Nitrogen 15 mg/dL (7-18) Creatinine 1.2 MG/DL (0.55-1.30) Estimat Glomerular Filtration Rate > 60 mL/min (>60) Glucose Level 129 MG/DL (74-106) H Calcium Level 7.1 MG/DL (8.5-10.1) L Phosphorus Level 2.3 MG/DL (2.5-4.9) L Iron Level 11 ug/dL (50-175) L Total Iron Binding Capacity 118 ug/dL (250-450) L Percent Iron Saturation 9 % (15-50) L Unsaturated Iron Binding 107 ug/dL (112-346) L Ferritin 554 NG/ML (8-388) H Current Medications Medications (Trade) Dose Ordered Sig/Ant Route PRN Reason Start Time Stop Time Status Last Admin Dose Admin Acetaminophen (Tylenol) 650 mg Q4H PRN ORAL Mild Pain/Temp > 100.5 03/04/17 08:45 04/03/17 08:44 03/10/17 00:26 Albuterol/ Ipratropium (Albuterol/ Ipratropium) 3 ml Q6HRT HHN 03/09/17 13:00 03/14/17 23:59 03/10/17 07:39 Artificial Tears (Akwa-Tears) 2 drop Q2H PRN BOTH EYES Dry Eyes 03/09/17 09:15 04/08/17 09:14 03/09/17 17:39 Aspirin (ASA) 81 mg DAILY NG 03/06/17 14:15 04/05/17 14:14 03/10/17 08:41 Chlorhexidine Gluconate (Lisa-Hex 2%) 1 applic DAILY@2000 TOPIC 03/09/17 20:00 04/08/17 19:59 Chlorhexidine Gluconate (Lisa-Hex 2%) 1 applic Q24H TOPIC 03/07/17 20:00 04/06/17 19:59 03/09/17 19:50 Fentanyl Citrate 2500 mcg/Sodium Chloride 250 ml @ 0 mls/hr Q24H IV 03/06/17 21:00 03/13/17 20:59 03/09/17 21:14 Heparin Sodium (Porcine) (Heparin 5000 units/ml) 5,000 units EVERY 12 HOURS SUBQ 03/04/17 21:00 04/03/17 20:59 03/10/17 08:41 Lorazepam (Ativan 2mg/ml 1ml) 1 mg Q4H PRN IV For Anxiety 03/09/17 13:30 03/16/17 23:59 03/10/17 08:39 Meropenem 1 gm/ Sodium Chloride 55 ml @ 110 mls/hr Q12HR@0600,1800 IVPB 03/07/17 18:00 03/12/17 17:59 03/10/17 06:02 Midazolam HCl (Versed 2mg/2ml vial) 1 mg Q2H PRN IVP agitation 03/04/17 11:45 04/03/17 11:44 03/09/17 12:52 Pantoprazole (Protonix) 40 mg Q12HR IVP 03/04/17 21:00 04/03/17 20:59 03/10/17 08:39 Potassium Phosphate 20 mm/ Sodium Chloride 281.6667 ml @ 46.944 m... ONCE ONCE IV 03/10/17 09:00 03/10/17 14:59 Alise Polanco M.D. Mar 10, 2017 10:10
--- NOTE | 2017-03-10 10:49 | Pulmonolgy Critical Care Note ---
Critical Care - Asmt/Plan Assessment/Plan: ASSESSMENT sepsis with shock (resolved shock) acute hypoxemic RF requiring intubation 03/04 bacteremia with Aerococcus PNA with E coli ESBL possible UTI acute renal failure possible ATN dehydration Hypernatremia ( due to free water deficit) e/lyte imbalance : hypo K, hypo P COPD Alzheimer dementia severe protein calorie malnutrition moderate pulmonary HTN elevated AST Hx of HTN thrombocytopenia dysphagia OA PLAN OF CARE ICU care vent support, pulmonary toilet continue weaning protocol as tolerated daily CXR and ABG while intubated ABG this am with hypoxia, titrate fio2 to keep sat above 92% abx, ID follows sputum cx + E coli ESBL, urine cx negative, initially 1/ blood cx + Aerococcus , repeated blood cx negative UTD, ID wants to r/o endocarditis ECHO with grossly preserved EF and normal wall motion to the extent visualized, + evidence of moderate pulmonary HTN s/p PICC 03/09 renal parameters improving, Na down nephro follows restart [id number] at 75, still hyper Na, low BP, replace K and P, check in am monitor cardiorenal parameters, volumes, avoid nephrotoxic cardio follows troponin noted fup with cardio recommendation: ASA, BB, no need for diuresis for now ECHO pending DVT GI prophylaxis monitor counts,heme follows monitor LFT, abdominal US strict aspiration precautions, NGT feeding dietary recom re TF type and goal wound care pain management bowel regimen Case discussed and evaluated by supervising physician Critical Care - Objective Last 24 Hour Vital Signs Date Time Temp Pulse Resp B/P (MAP) Pulse Ox O2 Delivery O2 Flow Rate FiO2 03/10/17 10:05 98 03/10/17 10:00 40 03/10/17 10:00 96 27 98/48 98 Mechanical Ventilator 40 03/10/17 09:29 97 25 40 03/10/17 09:00 99 24 92/43 97 Mechanical Ventilator 40 03/10/17 08:00 98.0 102 31 120/53 96 Mechanical Ventilator 40 03/10/17 08:00 98 03/10/17 08:00 40 03/10/17 07:44 96 23 100 Mechanical Ventilator 40 03/10/17 07:30 97 32 100 Mechanical Ventilator 40 03/10/17 07:29 100 31 40 03/10/17 07:00 33 03/10/17 07:00 93 35 102/56 98 Mechanical Ventilator 40 03/10/17 06:30 94 31 105/61 97 Mechanical Ventilator 40 03/10/17 06:00 94 31 105/61 97 Mechanical Ventilator 40 03/10/17 06:00 32 03/10/17 05:30 94 31 119/60 96 Mechanical Ventilator 40 03/10/17 05:16 94 32 40 03/10/17 05:00 97 26 113/52 99 Mechanical Ventilator 40 03/10/17 05:00 30 03/10/17 04:30 97 26 113/57 99 Mechanical Ventilator 40 03/10/17 04:00 99.1 92 26 117/85 99 Mechanical Ventilator 40 03/10/17 04:00 93 03/10/17 04:00 26 03/10/17 04:00 40 03/10/17 03:35 105 18 40 03/10/17 03:30 93 26 94/56 99 Mechanical Ventilator 40 03/10/17 03:00 93 26 101/49 99 Mechanical Ventilator 40 03/10/17 03:00 26 03/10/17 02:30 94 25 96/52 99 Mechanical Ventilator 40 03/10/17 02:13 108 32 100 Mechanical Ventilator 35 03/10/17 02:00 95 16 106/55 99 Mechanical Ventilator 40 03/10/17 02:00 16 03/10/17 01:57 35 03/10/17 01:56 107 16 40 03/10/17 01:56 98 16 100 Mechanical Ventilator 35 03/10/17 01:30 97 27 90/48 99 Mechanical Ventilator 40 03/10/17 01:25 99.9 03/10/17 01:00 98 35 91/52 99 Mechanical Ventilator 40 03/10/17 01:00 29 03/10/17 00:30 99 35 96/52 99 Mechanical Ventilator 40 03/10/17 00:00 100.1 100 29 97/53 99 Mechanical Ventilator 40 03/10/17 00:00 33 03/10/17 00:00 35 03/10/17 00:00 101 03/09/17 23:30 102 35 99/54 99 Mechanical Ventilator 40 03/09/17 23:00 30 03/09/17 23:00 102 35 96/54 99 Mechanical Ventilator 40 03/09/17 22:52 102 31 40 03/09/17 22:30 103 29 99/50 100 Mechanical Ventilator 40 03/09/17 22:00 104 34 100/55 96 Mechanical Ventilator 40 03/09/17 22:00 35 03/09/17 21:30 104 34 101/58 98 Mechanical Ventilator 40 03/09/17 21:14 31 03/09/17 21:00 105 34 100/54 98 Mechanical Ventilator 40 03/09/17 21:00 30 03/09/17 20:36 101 31 100 Mechanical Ventilator 35 03/09/17 20:33 102 40 40 03/09/17 20:30 109 34 101/48 98 Mechanical Ventilator 40 03/09/17 20:27 110 41 Mechanical Ventilator 40 03/09/17 20:27 109 41 40 03/09/17 20:26 35 03/09/17 20:26 110 41 97 Mechanical Ventilator 35 03/09/17 20:00 109 34 101/48 98 Mechanical Ventilator 35 03/09/17 20:00 35 03/09/17 20:00 35 03/09/17 20:00 115 03/09/17 19:30 98.3 116 34 119/67 98 Mechanical Ventilator 35 03/09/17 19:00 35 03/09/17 19:00 106 34 116/69 98 Mechanical Ventilator 35 03/09/17 18:00 30 03/09/17 18:00 106 34 133/76 100 Mechanical Ventilator 35 03/09/17 17:30 108 34 148/68 100 Mechanical Ventilator 35 03/09/17 17:18 100 34 35 03/09/17 17:00 106 34 150/76 100 Mechanical Ventilator 35 03/09/17 17:00 32 03/09/17 16:30 106 34 145/62 100 Mechanical Ventilator 35 03/09/17 16:00 98.8 104 33 153/73 100 Mechanical Ventilator 35 03/09/17 16:00 104 03/09/17 16:00 35 03/09/17 16:00 32 03/09/17 15:30 103 34 130/62 100 Mechanical Ventilator 35 03/09/17 15:08 104 40 35 03/09/17 15:00 105 31 99/54 100 Mechanical Ventilator 35 03/09/17 15:00 30 03/09/17 14:30 99 31 111/44 100 Mechanical Ventilator 35 03/09/17 14:00 98 31 110/46 100 Mechanical Ventilator 35 03/09/17 14:00 32 03/09/17 13:32 102 16 100 Mechanical Ventilator 35 03/09/17 13:32 35 03/09/17 13:30 100 31 114/53 100 Mechanical Ventilator 35 03/09/17 13:27 100 19 35 03/09/17 13:25 100 24 98 Mechanical Ventilator 35 03/09/17 13:00 101 34 109/55 100 Mechanical Ventilator 35 03/09/17 13:00 35 03/09/17 12:30 102 30 100/52 100 Mechanical Ventilator 35 03/09/17 12:00 105 03/09/17 12:00 98.6 105 34 102/51 100 Mechanical Ventilator 35 03/09/17 12:00 35 03/09/17 12:00 35 03/09/17 11:30 104 34 108/59 100 Mechanical Ventilator 35 03/09/17 11:20 115 38 35 03/09/17 11:00 100 34 116/52 100 Mechanical Ventilator 35 03/09/17 11:00 35 Objective: Status: sedated, on Vent Condition: critical HEENT: atraumatic, normocephalic, - OP with ET in place, intact, NGT with TF Lungs: clear Heart: HR/BP stable Abdomen: soft, non-tender, active bowel sounds Extremities: no C/C/E Critical Care - Subjective ROS Limited/Unobtainable: Yes Interval Events: not tolerated weaning 03/09, became tachycardic and with respiratory distress still mild leucocytosis, afebrile CXR with new infiltrate s/p PICC 03/09 Condition: critical IV Access: PICC - intact EKG Rhythm: Sinus Rhythm FI02: 40 Vent Support Breath Rate: 10 Vent Support Mode: IMV/SIMV Vent Tidal Volume: 450 Sputum Amount: Moderate PEEP: 5.0 PIP: 36 Drips: Fentanyl gtt at 12 ml/hr Tube Feeding Amount: 0 I&O: Intake and Output 03/09/17 03/10/17 19:00 07:00 Intake Total 1352.0 ml 1098 ml Output Total 805 ml 675 ml Balance 547.0 ml 423 ml Free Water 200 ml 300 ml IV Total 492.0 ml 138 ml Tube Feeding 660 ml 660 ml Output Urine Total 805 ml 675 ml CXR: New right pulmonary infiltrate. ET-Tube: 7.5 ET Position: 25 Mane ([facility]alsKacy Ballard NP Mar 10, 2017 10:49
[2017-03-10] MEDS ORDERED: Metoclopramide 10mg/2ml Inj IVP ONE (11:15)
--- NOTE | 2017-03-10 12:45 | Diagnostic Imaging Report ---
Indication: Dyspnea Comparison: 03/09/2017 A single view chest radiograph was obtained. Findings: A new PICC line has been placed on the left and is in good position. Right pulmonary infiltrate is unchanged. Lung volumes remain low bilaterally. IMPRESSION: PICC line in good position. No change otherwise
--- NOTE | 2017-03-10 16:35 | Nephrology Progress Note ---
Assessment/Plan Problem List: (1) Respiratory disorder with ventilator dependence (2) UTI (urinary tract infection) (3) Hypernatremia (4) Acute renal failure Assessment - Na higher - Acute renal failure cr 1.1 to 2.4 to 2.1 to 1.9 to 1.5 - Chronic paranoid schizophrenia - Respiratory disorder with ventilator dependence - Healthcare associated bacterial pneumonia - UTI (urinary tract infection) - SIRS (systemic inflammatory response syndrome) - Alzheimer disease - Hypokalemia - Hypernatremia / due to water deficit improving with D5 resolving Plan plan: D5w Water NGT Pulm support Antibiotics monitor renal parameters K Phos IV per orders Subjective ROS Limited/Unobtainable: Yes Objective Objective Last 24 Hour Vital Signs Date Time Temp Pulse Resp B/P (MAP) Pulse Ox O2 Delivery O2 Flow Rate FiO2 03/10/17 16:00 40 03/10/17 16:00 99.3 99 26 92/45 97 Mechanical Ventilator 40 03/10/17 15:00 100 26 97/49 96 Mechanical Ventilator 40 03/10/17 14:51 101 24 40 03/10/17 14:00 101 29 90/45 97 Mechanical Ventilator 40 03/10/17 13:14 103 24 100 Mechanical Ventilator 40 03/10/17 13:11 102 16 40 03/10/17 13:05 102 16 100 Mechanical Ventilator 40 03/10/17 13:00 100 31 87/43 94 Mechanical Ventilator 40 03/10/17 12:00 40 03/10/17 12:00 102 03/10/17 12:00 98.5 101 26 87/43 98 Mechanical Ventilator 40 03/10/17 11:00 109 31 115/49 94 Mechanical Ventilator 40 03/10/17 11:00 40 03/10/17 10:58 118 39 40 03/10/17 10:05 98 03/10/17 10:00 40 03/10/17 10:00 96 27 98/48 98 Mechanical Ventilator 40 03/10/17 09:29 97 25 40 03/10/17 09:00 99 24 92/43 97 Mechanical Ventilator 40 03/10/17 08:00 98.0 102 31 120/53 96 Mechanical Ventilator 40 03/10/17 08:00 98 03/10/17 08:00 40 03/10/17 07:44 96 23 100 Mechanical Ventilator 40 03/10/17 07:30 97 32 100 Mechanical Ventilator 40 03/10/17 07:29 100 31 40 03/10/17 07:00 33 03/10/17 07:00 93 35 102/56 98 Mechanical Ventilator 40 03/10/17 06:30 94 31 105/61 97 Mechanical Ventilator 40 03/10/17 06:00 94 31 105/61 97 Mechanical Ventilator 40 03/10/17 06:00 32 03/10/17 05:30 94 31 119/60 96 Mechanical Ventilator 40 03/10/17 05:16 94 32 40 03/10/17 05:00 97 26 113/52 99 Mechanical Ventilator 40 03/10/17 05:00 30 03/10/17 04:30 97 26 113/57 99 Mechanical Ventilator 40 03/10/17 04:00 99.1 92 26 117/85 99 Mechanical Ventilator 40 03/10/17 04:00 93 03/10/17 04:00 26 03/10/17 04:00 40 03/10/17 03:35 105 18 40 03/10/17 03:30 93 26 94/56 99 Mechanical Ventilator 40 03/10/17 03:00 93 26 101/49 99 Mechanical Ventilator 40 03/10/17 03:00 26 03/10/17 02:30 94 25 96/52 99 Mechanical Ventilator 40 03/10/17 02:13 108 32 100 Mechanical Ventilator 35 03/10/17 02:00 95 16 106/55 99 Mechanical Ventilator 40 03/10/17 02:00 16 03/10/17 01:57 35 03/10/17 01:56 107 16 40 03/10/17 01:56 98 16 100 Mechanical Ventilator 35 03/10/17 01:30 97 27 90/48 99 Mechanical Ventilator 40 03/10/17 01:25 99.9 03/10/17 01:00 98 35 91/52 99 Mechanical Ventilator 40 03/10/17 01:00 29 03/10/17 00:30 99 35 96/52 99 Mechanical Ventilator 40 03/10/17 00:00 100.1 100 29 97/53 99 Mechanical Ventilator 40 03/10/17 00:00 33 03/10/17 00:00 35 03/10/17 00:00 101 03/09/17 23:30 102 35 99/54 99 Mechanical Ventilator 40 03/09/17 23:00 30 03/09/17 23:00 102 35 96/54 99 Mechanical Ventilator 40 03/09/17 22:52 102 31 40 03/09/17 22:30 103 29 99/50 100 Mechanical Ventilator 40 03/09/17 22:00 104 34 100/55 96 Mechanical Ventilator 40 03/09/17 22:00 35 03/09/17 21:30 104 34 101/58 98 Mechanical Ventilator 40 03/09/17 21:14 31 03/09/17 21:00 105 34 100/54 98 Mechanical Ventilator 40 03/09/17 21:00 30 03/09/17 20:36 101 31 100 Mechanical Ventilator 35 03/09/17 20:33 102 40 40 03/09/17 20:30 109 34 101/48 98 Mechanical Ventilator 40 03/09/17 20:27 110 41 Mechanical Ventilator 40 03/09/17 20:27 109 41 40 03/09/17 20:26 35 03/09/17 20:26 110 41 97 Mechanical Ventilator 35 03/09/17 20:00 109 34 101/48 98 Mechanical Ventilator 35 03/09/17 20:00 35 03/09/17 20:00 35 03/09/17 20:00 115 03/09/17 19:30 98.3 116 34 119/67 98 Mechanical Ventilator 35 03/09/17 19:00 35 03/09/17 19:00 106 34 116/69 98 Mechanical Ventilator 35 03/09/17 18:00 30 03/09/17 18:00 106 34 133/76 100 Mechanical Ventilator 35 03/09/17 17:30 108 34 148/68 100 Mechanical Ventilator 35 03/09/17 17:18 100 34 35 03/09/17 17:00 106 34 150/76 100 Mechanical Ventilator 35 03/09/17 17:00 32 Intake and Output 03/09/17 03/10/17 19:00 07:00 Intake Total 1352.0 ml 1098 ml Output Total 805 ml 675 ml Balance 547.0 ml 423 ml Free Water 200 ml 300 ml IV Total 492.0 ml 138 ml Tube Feeding 660 ml 660 ml Output Urine Total 805 ml 675 ml Laboratory Tests 03/10/17 05:00: White Blood Count 12.6H, Red Blood Count 3.73L, Hemoglobin 10.9L, Hematocrit 34.8L, Mean Corpuscular Volume 93, Mean Corpuscular Hemoglobin 29.3, Mean Corpuscular Hemoglobin Concent 31.4L, Red Cell Distribution Width 13.4, Platelet Count 211, Mean Platelet Volume 8.9, Neutrophils (%) (Auto) 76.1H, Lymphocytes (%) (Auto) 13.1L, Monocytes (%) (Auto) 8.0, Eosinophils (%) (Auto) 2.4, Basophils (%) (Auto) 0.4, Sodium Level 150H, Potassium Level 3.0L, Chloride Level 117H, Carbon Dioxide Level 26, Anion Gap 7, Blood Urea Nitrogen 15, Creatinine 1.2, Estimat Glomerular Filtration Rate > 60, Glucose Level 129H , Calcium Level 7.1L, Phosphorus Level 2.3L, Iron Level 11L, Total Iron Binding Capacity 118L, Percent Iron Saturation 9L, Unsaturated Iron Binding 107L, Ferritin 554H Height (Feet): 5 Height (Inches): 9.00 Weight (Pounds): 130 Objective no change CHACHA NUNES Mar 10, 2017 16:35
--- NOTE | 2017-03-10 17:10 | General Progress Note ---
Assessment/Plan Assessment/Plan Assessment/Plan #. Respiratory failure, currently on a vent. currently unable to wean #. Leukocytosis 2/2 Sepsis. ID following #. Thrombocytopenia has resolved #. Acute anemia. Hgb goal above 7. Transfuse as needed, work up has been reviewed #. COPD #. Hypokalemia. #. Hypernatremia. #.Continue DVT prophylaxis with heparin subcutaneous Subjective Hematologic/Lymphatic: Reports: anemia Allergies: Coded Allergies: No Known Allergies (Unverified , 10/20/16) All Systems: reviewed and negative except above Subjective on a vent Objective Last 24 Hour Vital Signs Date Time Temp Pulse Resp B/P (MAP) Pulse Ox O2 Delivery O2 Flow Rate FiO2 03/10/17 16:00 101 03/10/17 16:00 40 03/10/17 16:00 99.3 99 26 92/45 97 Mechanical Ventilator 40 03/10/17 15:00 100 26 97/49 96 Mechanical Ventilator 40 03/10/17 14:51 101 24 40 03/10/17 14:00 101 29 90/45 97 Mechanical Ventilator 40 03/10/17 13:14 103 24 100 Mechanical Ventilator 40 03/10/17 13:11 102 16 40 03/10/17 13:05 102 16 100 Mechanical Ventilator 40 03/10/17 13:00 100 31 87/43 94 Mechanical Ventilator 40 03/10/17 12:00 40 03/10/17 12:00 102 03/10/17 12:00 98.5 101 26 87/43 98 Mechanical Ventilator 40 03/10/17 11:00 109 31 115/49 94 Mechanical Ventilator 40 03/10/17 11:00 40 03/10/17 10:58 118 39 40 03/10/17 10:05 98 03/10/17 10:00 40 03/10/17 10:00 96 27 98/48 98 Mechanical Ventilator 40 03/10/17 09:29 97 25 40 03/10/17 09:00 99 24 92/43 97 Mechanical Ventilator 40 03/10/17 08:00 98.0 102 31 120/53 96 Mechanical Ventilator 40 03/10/17 08:00 98 03/10/17 08:00 40 03/10/17 07:44 96 23 100 Mechanical Ventilator 40 03/10/17 07:30 97 32 100 Mechanical Ventilator 40 03/10/17 07:29 100 31 40 03/10/17 07:00 33 03/10/17 07:00 93 35 102/56 98 Mechanical Ventilator 40 03/10/17 06:30 94 31 105/61 97 Mechanical Ventilator 40 03/10/17 06:00 94 31 105/61 97 Mechanical Ventilator 40 03/10/17 06:00 32 03/10/17 05:30 94 31 119/60 96 Mechanical Ventilator 40 03/10/17 05:16 94 32 40 03/10/17 05:00 97 26 113/52 99 Mechanical Ventilator 40 03/10/17 05:00 30 03/10/17 04:30 97 26 113/57 99 Mechanical Ventilator 40 03/10/17 04:00 99.1 92 26 117/85 99 Mechanical Ventilator 40 03/10/17 04:00 93 03/10/17 04:00 26 03/10/17 04:00 40 03/10/17 03:35 105 18 40 03/10/17 03:30 93 26 94/56 99 Mechanical Ventilator 40 03/10/17 03:00 93 26 101/49 99 Mechanical Ventilator 40 03/10/17 03:00 26 03/10/17 02:30 94 25 96/52 99 Mechanical Ventilator 40 03/10/17 02:13 108 32 100 Mechanical Ventilator 35 03/10/17 02:00 95 16 106/55 99 Mechanical Ventilator 40 03/10/17 02:00 16 03/10/17 01:57 35 03/10/17 01:56 107 16 40 03/10/17 01:56 98 16 100 Mechanical Ventilator 35 03/10/17 01:30 97 27 90/48 99 Mechanical Ventilator 40 03/10/17 01:25 99.9 03/10/17 01:00 98 35 91/52 99 Mechanical Ventilator 40 03/10/17 01:00 29 03/10/17 00:30 99 35 96/52 99 Mechanical Ventilator 40 03/10/17 00:00 100.1 100 29 97/53 99 Mechanical Ventilator 40 03/10/17 00:00 33 03/10/17 00:00 35 03/10/17 00:00 101 03/09/17 23:30 102 35 99/54 99 Mechanical Ventilator 40 03/09/17 23:00 30 03/09/17 23:00 102 35 96/54 99 Mechanical Ventilator 40 03/09/17 22:52 102 31 40 03/09/17 22:30 103 29 99/50 100 Mechanical Ventilator 40 03/09/17 22:00 104 34 100/55 96 Mechanical Ventilator 40 03/09/17 22:00 35 03/09/17 21:30 104 34 101/58 98 Mechanical Ventilator 40 03/09/17 21:14 31 03/09/17 21:00 105 34 100/54 98 Mechanical Ventilator 40 03/09/17 21:00 30 03/09/17 20:36 101 31 100 Mechanical Ventilator 35 03/09/17 20:33 102 40 40 03/09/17 20:30 109 34 101/48 98 Mechanical Ventilator 40 03/09/17 20:27 110 41 Mechanical Ventilator 40 03/09/17 20:27 109 41 40 03/09/17 20:26 35 03/09/17 20:26 110 41 97 Mechanical Ventilator 35 03/09/17 20:00 109 34 101/48 98 Mechanical Ventilator 35 03/09/17 20:00 35 03/09/17 20:00 35 03/09/17 20:00 115 03/09/17 19:30 98.3 116 34 119/67 98 Mechanical Ventilator 35 03/09/17 19:00 35 03/09/17 19:00 106 34 116/69 98 Mechanical Ventilator 35 03/09/17 18:00 30 03/09/17 18:00 106 34 133/76 100 Mechanical Ventilator 35 03/09/17 17:30 108 34 148/68 100 Mechanical Ventilator 35 03/09/17 17:18 100 34 35 Intake and Output 03/09/17 03/10/17 19:00 07:00 Intake Total 1352.0 ml 1098 ml Output Total 805 ml 675 ml Balance 547.0 ml 423 ml Free Water 200 ml 300 ml IV Total 492.0 ml 138 ml Tube Feeding 660 ml 660 ml Output Urine Total 805 ml 675 ml Laboratory Tests 03/10/17 05:00: White Blood Count 12.6H, Red Blood Count 3.73L, Hemoglobin 10.9L, Hematocrit 34.8L, Mean Corpuscular Volume 93, Mean Corpuscular Hemoglobin 29.3, Mean Corpuscular Hemoglobin Concent 31.4L, Red Cell Distribution Width 13.4, Platelet Count 211, Mean Platelet Volume 8.9, Neutrophils (%) (Auto) 76.1H, Lymphocytes (%) (Auto) 13.1L, Monocytes (%) (Auto) 8.0, Eosinophils (%) (Auto) 2.4, Basophils (%) (Auto) 0.4, Sodium Level 150H, Potassium Level 3.0L, Chloride Level 117H, Carbon Dioxide Level 26, Anion Gap 7, Blood Urea Nitrogen 15, Creatinine 1.2, Estimat Glomerular Filtration Rate > 60, Glucose Level 129H , Calcium Level 7.1L, Phosphorus Level 2.3L, Iron Level 11L, Total Iron Binding Capacity 118L, Percent Iron Saturation 9L, Unsaturated Iron Binding 107L, Ferritin 554H Height (Feet): 5 Height (Inches): 9.00 Weight (Pounds): 130 General Appearance: no apparent distress EENT: normal ENT inspection Neck: normal alignment Cardiovascular: normal peripheral pulses Abdomen: no organomegaly Edema: trace edema Neurologic: miner pick II-XII grossly normal Justin Anthony Mar 10, 2017 17:10
[2017-03-10] MEDS: fentaNYL Citrate 2500mcg in NS 250ml IV SCH (18:26)
[2017-03-10] MEDS: Dyna-Hex 2% Top Sol 2oz TOPIC SCH ×2 (20:00→21:39)
[2017-03-10] MEDS: Metoclopramide 10mg/2ml Inj IVP SCH (21:40)
[2017-03-11] VITALS (31 sets, daily range): BP systolic 82–156; BP diastolic 24–93
--- NOTE | 2017-03-11 | Progress Note ---
DATE: 03/10/2017 CARDIOLOGY PROGRESS NOTE SUBJECTIVE: The patient remains in the intensive care unit on ventilator support. Weaning efforts ongoing. The patient is off pressors. OBJECTIVE: VITAL SIGNS: Blood pressure 94/42, heart rate 99, respiratory rate 23, and afebrile. LUNGS: Coarse breath sounds. HEART: Regular rhythm and rate. Normal S1, S2. ABDOMEN: Soft. EXTREMITIES: Trace edema. LABORATORY DATA: White count 12.6, hemoglobin 10.9. Phosphorus 2.3, potassium 3, sodium 150, BUN 15, and creatinine 1.2. IMPRESSION: 1. Dehydration. 2. Hyponatremia. 3. Hypokalemia. 4. Prerenal azotemia. 5. Acute on chronic kidney injury. 6. Acute myocardial infarction. 7. Respiratory failure. 8. Sepsis with recovering shock. 9. Hypophosphatemia. 10. Severe protein-calorie malnutrition. PLAN: 1. Continue free water replacement. 2. Continue ventilator support. 3. Antiplatelet therapy. 4. Protein supplementation by feeding tube. 5. Replace potassium and phosphorus. 6. Blood pressure has been stabilized adequately. 7. To add beta-kirk. 8. Follow up in the setting of acute myocardial infarction. Manuel Manning M.D. DR: Harjinder JOB#: [id number] CC:
[2017-03-11] MEDS: Albuterol/Ipratropium 3ml neb HHN SCH ×5 (01:06→18:45)
[2017-03-11 06:03] LABS: BASOPHILS % (AUTO) 0.3 % (0.0-2.0); EOSINOPHILS % (AUTO) 2.1 % (0.0-3.0); HEMATOCRIT 31.1 % (42.0-52.0); LYMPHOCYTES % (AUTO) 19.1 % (20.0-45.0); MEAN CORPUSCULAR VOLUME 94 FL (80-99); MONOCYTES % (AUTO) 8.4 % (1.0-10.0); NEUTROPHILS % (AUTO) 70.2 % (45.0-75.0); PLATELET COUNT 242 K/UL (150-450); RED BLOOD COUNT 3.31 M/UL (4.70-6.10); RED CELL DISTRIBUTION WIDTH 13.3 % (11.6-14.8); WHITE BLOOD COUNT 12.3 K/UL (4.8-10.8)
[2017-03-11] MEDS: Meropenem 1gm in NS 55ml IVPB SCH ×2 (06:16→17:12)
[2017-03-11] MEDS: Metoclopramide 10mg/2ml Inj IVP SCH ×3 (06:16→21:08)
[2017-03-11 06:38] LABS: ALANINE AMINOTRANSFERASE 33 U/L (12-78); ALBUMIN 1.3 G/DL (3.4-5.0); ALKALINE PHOSPHATASE 77 U/L (46-116); ASPARTATE AMINO TRANSFERASE 56 U/L (15-37); BILIRUBIN,DIRECT 0.3 MG/DL (0.0-0.3); BILIRUBIN,TOTAL 0.6 MG/DL (0.2-1.0)
[2017-03-11 07:25] LABS: PHOSPHORUS 2.8 MG/DL (2.5-4.9)
[2017-03-11 07:51] LABS: ANION GAP 6 mmol/L (5-15); BLOOD UREA NITROGEN 17 mg/dL (7-18); CARBON DIOXIDE 28 MMOL/L (21-32); CHLORIDE 114 MMOL/L (98-107); CREATININE 1.2 MG/DL (0.55-1.30); POTASSIUM 3.2 MMOL/L (3.5-5.1); SODIUM 148 MMOL/L (136-145)
[2017-03-11] MEDS: Pantoprazole Inj IVP SCH ×2 (09:23→21:08)
[2017-03-11] MEDS: Aspirin Baby 81mg NG SCH (09:23)
[2017-03-11] MEDS: Heparin 5000 units/ml inj SUBQ SCH ×2 (09:24→21:09)
--- NOTE | 2017-03-11 09:39 | Pulmonolgy Critical Care Note ---
Critical Care - Asmt/Plan Assessment/Plan: ASSESSMENT sepsis with shock (resolved shock) acute hypoxemic RF requiring intubation 03/04 bacteremia with Aerococcus PNA with E coli ESBL possible UTI acute renal failure possible ATN dehydration Hypernatremia ( due to free water deficit) e/lyte imbalance : hypo K, hypo P COPD Alzheimer dementia severe protein calorie malnutrition moderate pulmonary HTN elevated AST Hx of HTN thrombocytopenia dysphagia OA PLAN OF CARE ICU care vent support, pulmonary toilet weaning protocol as tolerated ( taper down and stop Fentanyl gtt) mat possibly need trach if further failure to wean daily CXR and ABG while intubated ABG this am stable abx, ID follows sputum cx + E coli ESBL, urine cx negative, initially 03/18 blood cx + Aerococcus , repeated blood cx negative UTD, ID wants to r/o endocarditis ECHO with grossly preserved EF and nprmal wal motion to the extent visualized, + evidence of moderate pulmonary HTN s/p PICC 03/09 renal parameters improved, creat down to normal, continue IVF with dextrose for 1 more day, Na trending down nephro follows replace K monitor cardiorenal parameters, volumes, avoid nephrotoxic cardio follows troponin noted fup with cardio recommendation: ASA, BB, no need for diuresis for now ECHO pending DVT GI prophylaxis monitor counts,heme follows monitor LFT, abdominal US strict aspiration precautions, NGT feeding dietary recom re TF type and goal rate wound care pain management bowel regimen Case discussed and evaluated by supervising physician Critical Care - Objective Last 24 Hour Vital Signs Date Time Temp Pulse Resp B/P (MAP) Pulse Ox O2 Delivery O2 Flow Rate FiO2 03/11/17 09:00 99.3 92 24 83/41 99 Mechanical Ventilator 40 03/11/17 09:00 24 03/11/17 08:00 99.7 95 29 93/46 97 Mechanical Ventilator 40 03/11/17 08:00 40 03/11/17 08:00 100 03/11/17 08:00 29 03/11/17 07:18 98 20 100 Mechanical Ventilator 40 03/11/17 07:08 97 24 40 03/11/17 07:01 99 18 96 Mechanical Ventilator 40 03/11/17 06:50 98 32 155/74 95 Mechanical Ventilator 40 03/11/17 06:30 95 23 97 Mechanical Ventilator 40 03/11/17 06:00 92 23 89/48 96 Mechanical Ventilator 40 03/11/17 05:30 96 34 130/51 97 Mechanical Ventilator 40 03/11/17 05:00 99.5 91 34 156/57 97 Mechanical Ventilator 40 03/11/17 04:56 82 21 40 03/11/17 04:30 85 24 86/41 99 Mechanical Ventilator 40 03/11/17 04:00 24 03/11/17 04:00 87 03/11/17 04:00 40 03/11/17 04:00 86 24 82/43 99 Mechanical Ventilator 40 03/11/17 03:30 87 23 83/42 99 Mechanical Ventilator 40 03/11/17 03:26 88 23 40 03/11/17 03:00 88 23 88/43 99 Mechanical Ventilator 40 03/11/17 02:49 99.7 03/11/17 02:30 88 22 91/47 99 Mechanical Ventilator 40 03/11/17 02:00 89 23 91/47 99 Mechanical Ventilator 40 03/11/17 01:30 90 24 85/42 99 Mechanical Ventilator 40 03/11/17 01:09 92 16 100 Mechanical Ventilator 40 03/11/17 01:07 91 21 40 03/11/17 01:00 Mechanical Ventilator 40 03/11/17 01:00 91 22 84/43 98 Mechanical Ventilator 40 03/11/17 01:00 91 21 98 Mechanical Ventilator 40 03/11/17 00:41 100.6 03/11/17 00:39 100.6 92 24 83/40 98 03/11/17 00:30 93 21 83/40 97 Mechanical Ventilator 40 03/11/17 00:00 98 03/11/17 00:00 97 29 117/57 98 Mechanical Ventilator 40 03/11/17 00:00 40 03/10/17 23:30 96 24 86/42 98 Mechanical Ventilator 40 03/10/17 23:26 96 26 86/40 98 03/10/17 23:05 95 25 40 03/10/17 23:00 98 25 89/43 98 Mechanical Ventilator 40 03/10/17 22:30 98 23 93/43 98 Mechanical Ventilator 40 03/10/17 22:20 101.9 99 25 91/46 98 Mechanical Ventilator 40 03/10/17 22:00 99 25 89/49 97 Mechanical Ventilator 40 03/10/17 21:30 99 26 95/48 97 Mechanical Ventilator 40 03/10/17 21:03 98 18 40 03/10/17 21:00 100 23 97/48 97 Mechanical Ventilator 40 03/10/17 20:30 101 24 100/44 97 Mechanical Ventilator 40 03/10/17 20:00 40 03/10/17 20:00 99 03/10/17 20:00 101 25 89/44 99 Mechanical Ventilator 40 03/10/17 19:30 98 25 116/52 96 Mechanical Ventilator 40 03/10/17 19:18 104 21 99 Mechanical Ventilator 40 03/10/17 19:12 100 22 96 Mechanical Ventilator 40 03/10/17 19:12 100 23 40 03/10/17 19:00 99 23 94/42 96 Mechanical Ventilator 40 03/10/17 18:26 31 03/10/17 18:00 98 30 120/48 97 Mechanical Ventilator 40 03/10/17 17:08 97 24 40 03/10/17 17:00 99 25 92/46 97 Mechanical Ventilator 40 03/10/17 16:00 101 03/10/17 16:00 40 03/10/17 16:00 99.3 99 26 92/45 97 Mechanical Ventilator 40 03/10/17 15:00 100 26 97/49 96 Mechanical Ventilator 40 03/10/17 14:51 101 24 40 03/10/17 14:00 101 29 90/45 97 Mechanical Ventilator 40 03/10/17 13:14 103 24 100 Mechanical Ventilator 40 03/10/17 13:11 102 16 40 03/10/17 13:05 102 16 100 Mechanical Ventilator 40 03/10/17 13:00 100 31 87/43 94 Mechanical Ventilator 40 03/10/17 12:00 40 03/10/17 12:00 102 03/10/17 12:00 98.5 101 26 87/43 98 Mechanical Ventilator 40 03/10/17 11:00 109 31 115/49 94 Mechanical Ventilator 40 03/10/17 11:00 40 03/10/17 10:58 118 39 40 03/10/17 10:05 98 03/10/17 10:00 40 03/10/17 10:00 96 27 98/48 98 Mechanical Ventilator 40 Objective: Status: sedated, on Vent AC 450-16-40% Condition: critical HEENT: atraumatic, normocephalic, - OP with ET in place, intact, NGT with TF Lungs: clear Heart: HR/BP stable, PICC line intact Abdomen: soft, non-tender, active bowel sounds Extremities: no C/C/E Critical Care - Subjective ROS Limited/Unobtainable: Yes Interval Events: still with leukocytosis, afebrile failed weaning on Fentanyl gtt ABG stable this am K-3.2 Condition: critical IV Access: PICC EKG Rhythm: Sinus Rhythm FI02: 40 Vent Support Breath Rate: 16 Vent Support Mode: AC Vent Tidal Volume: 450 Sputum Amount: Moderate PEEP: 5.0 PIP: 39 Fluids: D5W at 75 Drips: Fentanyl gtt at 8 ml/hr Tube Feeding Amount: 45 I&O: Intake and Output 03/10/17 03/11/17 19:00 07:00 Intake Total 724 ml 1268 ml Output Total 755 ml 655 ml Balance -31 ml 613 ml Free Water 100 ml IV Total 624 ml 853 ml Tube Feeding 100 ml 315 ml Output Urine Total 755 ml 655 ml CXR: 03/10 -A new PICC line has been placed on the left and is in good position. Right pulmonary infiltrate is unchanged. Lung volumes remain low bilaterally. ET-Tube: 7.5 ET Position: 25 Mane (Kacy Thacker NP Mar 11, 2017 09:39
--- NOTE | 2017-03-11 09:54 | Infectious Diseases Prog Note ---
Assessment/Plan Assessment/Plan ASSESSMENT: The patient is a 71-year-old male with: Aerococcus urinae bacteremia- ?source UTI however Ucx neg; r/o endocarditis as has been associated with endocarditis in the elderly. -03/03 Bcx 1/ +; 03/06 NTD x4 -Elevated CRp 21.0 03/06 -03/03 TTE: no vegetations, no significant valve abnormalities Sepsis. Leukocytosis , improving FEvers HCAP Scx : ESBL EColi ; now new infiltrate- r/o superinfection with another bacteria -CXR 03/09: New right pulmonary infiltrate. Possible urinary tract infection Elevated inflammatory markers -ESR 94, CRP 14.2 03/11 Influenza negative AST Elevation Positive cardiac enzymes. Acute renal failure, improving Dysphagia. Osteoarthritis. Hypertension. COPD. History of GERD History of H. pylori in the past Dementia with psychosis PLAN: continue IV Merrem d# 4 /-14 for ESBL PNA and aerococcus bacteremia and add IV Vancomycin given fevers and new infiltrates awaiting repeat cultures 03/08 SP vancomycin d# 5 03/07 SP Zosyn d# 4 f.u repeat sputum cx and repeat Bcx, u/a with reflex Monitor CBC/CMP.; Trend WBC Monitor cultures (blood ) Monitor chest x-ray. Monitor renal function. Subjective Allergies: Coded Allergies: No Known Allergies (Unverified , 10/20/16) Subjective febrile to 101.9 overnight leukocytosis improving repeat Bcx NTD new infiltrate on CXR, reamins at 40% Fio2, intubated Objective Vital Signs Last 24 Hour Vital Signs Date Time Temp Pulse Resp B/P (MAP) Pulse Ox O2 Delivery O2 Flow Rate FiO2 03/11/17 09:40 100 03/11/17 09:20 100 22 40 03/11/17 09:00 99.3 92 24 83/41 99 Mechanical Ventilator 40 03/11/17 09:00 24 03/11/17 08:00 99.7 95 29 93/46 97 Mechanical Ventilator 40 03/11/17 08:00 40 03/11/17 08:00 100 03/11/17 08:00 29 03/11/17 07:18 98 20 100 Mechanical Ventilator 40 03/11/17 07:08 97 24 40 03/11/17 07:01 99 18 96 Mechanical Ventilator 40 03/11/17 06:50 98 32 155/74 95 Mechanical Ventilator 40 03/11/17 06:30 95 23 97 Mechanical Ventilator 40 03/11/17 06:00 92 23 89/48 96 Mechanical Ventilator 40 03/11/17 05:30 96 34 130/51 97 Mechanical Ventilator 40 03/11/17 05:00 99.5 91 34 156/57 97 Mechanical Ventilator 40 03/11/17 04:56 82 21 40 03/11/17 04:30 85 24 86/41 99 Mechanical Ventilator 40 03/11/17 04:00 24 03/11/17 04:00 87 03/11/17 04:00 40 03/11/17 04:00 86 24 82/43 99 Mechanical Ventilator 40 03/11/17 03:30 87 23 83/42 99 Mechanical Ventilator 40 03/11/17 03:26 88 23 40 03/11/17 03:00 88 23 88/43 99 Mechanical Ventilator 40 03/11/17 02:49 99.7 03/11/17 02:30 88 22 91/47 99 Mechanical Ventilator 40 03/11/17 02:00 89 23 91/47 99 Mechanical Ventilator 40 03/11/17 01:30 90 24 85/42 99 Mechanical Ventilator 40 03/11/17 01:09 92 16 100 Mechanical Ventilator 40 03/11/17 01:07 91 21 40 03/11/17 01:00 Mechanical Ventilator 40 03/11/17 01:00 91 22 84/43 98 Mechanical Ventilator 40 03/11/17 01:00 91 21 98 Mechanical Ventilator 40 03/11/17 00:41 100.6 03/11/17 00:39 100.6 92 24 83/40 98 03/11/17 00:30 93 21 83/40 97 Mechanical Ventilator 40 03/11/17 00:00 98 03/11/17 00:00 97 29 117/57 98 Mechanical Ventilator 40 03/11/17 00:00 40 03/10/17 23:30 96 24 86/42 98 Mechanical Ventilator 40 03/10/17 23:26 96 26 86/40 98 03/10/17 23:05 95 25 40 03/10/17 23:00 98 25 89/43 98 Mechanical Ventilator 40 03/10/17 22:30 98 23 93/43 98 Mechanical Ventilator 40 03/10/17 22:20 101.9 99 25 91/46 98 Mechanical Ventilator 40 03/10/17 22:00 99 25 89/49 97 Mechanical Ventilator 40 03/10/17 21:30 99 26 95/48 97 Mechanical Ventilator 40 03/10/17 21:03 98 18 40 03/10/17 21:00 100 23 97/48 97 Mechanical Ventilator 40 03/10/17 20:30 101 24 100/44 97 Mechanical Ventilator 40 03/10/17 20:00 40 03/10/17 20:00 99 03/10/17 20:00 101 25 89/44 99 Mechanical Ventilator 40 03/10/17 19:30 98 25 116/52 96 Mechanical Ventilator 40 03/10/17 19:18 104 21 99 Mechanical Ventilator 40 03/10/17 19:12 100 22 96 Mechanical Ventilator 40 03/10/17 19:12 100 23 40 03/10/17 19:00 99 23 94/42 96 Mechanical Ventilator 40 03/10/17 18:26 31 03/10/17 18:00 98 30 120/48 97 Mechanical Ventilator 40 03/10/17 17:08 97 24 40 03/10/17 17:00 99 25 92/46 97 Mechanical Ventilator 40 03/10/17 16:00 101 03/10/17 16:00 40 03/10/17 16:00 99.3 99 26 92/45 97 Mechanical Ventilator 40 03/10/17 15:00 100 26 97/49 96 Mechanical Ventilator 40 03/10/17 14:51 101 24 40 03/10/17 14:00 101 29 90/45 97 Mechanical Ventilator 40 03/10/17 13:14 103 24 100 Mechanical Ventilator 40 03/10/17 13:11 102 16 40 03/10/17 13:05 102 16 100 Mechanical Ventilator 40 03/10/17 13:00 100 31 87/43 94 Mechanical Ventilator 40 03/10/17 12:00 40 03/10/17 12:00 102 03/10/17 12:00 98.5 101 26 87/43 98 Mechanical Ventilator 40 03/10/17 11:00 109 31 115/49 94 Mechanical Ventilator 40 03/10/17 11:00 40 03/10/17 10:58 118 39 40 03/10/17 10:05 98 03/10/17 10:00 40 03/10/17 10:00 96 27 98/48 98 Mechanical Ventilator 40 Height (Feet): 5 Height (Inches): 9.00 Weight (Pounds): 130 Objective General Appearance: other - Intubated, limited eval as patient is not following commands EENT: PERRL/EOMI Neck: supple Cardiovascular: tachycardia Respiratory/Chest: rhonchi - bilaterally Abdomen: soft Extremities: other - cachectic appearance Neurologic: other - limited eval as patient is not following commands Laboratory Tests Test 03/11/17 05:00 03/11/17 09:20 White Blood Count 12.3 K/UL (4.8-10.8) H Red Blood Count 3.31 M/UL (4.70-6.10) L Hemoglobin 10.0 G/DL (14.2-18.0) L Hematocrit 31.1 % (42.0-52.0) L Mean Corpuscular Volume 94 FL (80-99) Mean Corpuscular Hemoglobin 30.2 PG (27.0-31.0) Mean Corpuscular Hemoglobin Concent 32.1 G/DL (32.0-36.0) Red Cell Distribution Width 13.3 % (11.6-14.8) Platelet Count 242 K/UL (150-450) Mean Platelet Volume 7.9 FL (6.5-10.1) Neutrophils (%) (Auto) 70.2 % (45.0-75.0) Lymphocytes (%) (Auto) 19.1 % (20.0-45.0) L Monocytes (%) (Auto) 8.4 % (1.0-10.0) Eosinophils (%) (Auto) 2.1 % (0.0-3.0) Basophils (%) (Auto) 0.3 % (0.0-2.0) Erythrocyte Sedimentation Rate 94 MM/HR (0-20) H Sodium Level 148 MMOL/L (136-145) H Potassium Level 3.2 MMOL/L (3.5-5.1) L Chloride Level 114 MMOL/L (98-107) H Carbon Dioxide Level 28 MMOL/L (21-32) Anion Gap 6 mmol/L (5-15) Blood Urea Nitrogen 17 mg/dL (7-18) Creatinine 1.2 MG/DL (0.55-1.30) Estimat Glomerular Filtration Rate > 60 mL/min (>60) Glucose Level 114 MG/DL (74-106) H Calcium Level 7.0 MG/DL (8.5-10.1) L Phosphorus Level 2.8 MG/DL (2.5-4.9) Magnesium Level 2.2 MG/DL (1.8-2.4) Total Bilirubin 0.6 MG/DL (0.2-1.0) Direct Bilirubin 0.3 MG/DL (0.0-0.3) Aspartate Amino Transf (AST/SGOT) 56 U/L (15-37) H Alanine Aminotransferase (ALT/SGPT) 33 U/L (12-78) Alkaline Phosphatase 77 U/L (46-116) C-Reactive Protein, Quantitative 14.2 mg/dL (0.00-0.90) H Total Protein 5.6 G/DL (6.4-8.2) L Albumin 1.3 G/DL (3.4-5.0) L Arterial Blood pH 7.460 (7.350-7.450) Arterial Blood Partial Pressure CO2 37.1 mmHg (35.0-45.0) Arterial Blood Partial Pressure O2 65.5 mmHg (75.0-100.0) L Arterial Blood HCO3 25.9 mmol/L (22.0-26.0) Arterial Blood Oxygen Saturation 93.3 % (92.0-98.0) Arterial Blood Base Excess 2.2 Ulises Test Positive Current Medications Medications (Trade) Dose Ordered Sig/Atn Route PRN Reason Start Time Stop Time Status Last Admin Dose Admin Acetaminophen (Tylenol) 650 mg Q4H PRN ORAL Mild Pain/Temp > 100.5 03/04/17 08:45 04/03/17 08:44 03/10/17 23:02 Albuterol/ Ipratropium (Albuterol/ Ipratropium) 3 ml Q6HRT HHN 03/09/17 13:00 03/14/17 23:59 03/11/17 07:00 Artificial Tears (Akwa-Tears) 2 drop Q2H PRN BOTH EYES Dry Eyes 03/09/17 09:15 04/08/17 09:14 03/09/17 17:39 Aspirin (ASA) 81 mg DAILY NG 03/06/17 14:15 04/05/17 14:14 03/11/17 09:23 Chlorhexidine Gluconate (Lisa-Hex 2%) 1 applic DAILY@1999 TOPIC 03/09/17 20:00 04/08/17 19:59 Chlorhexidine Gluconate (Lisa-Hex 2%) 1 applic Q24H TOPIC 03/07/17 20:00 04/06/17 19:59 03/10/17 21:39 Dextrose 1,000 ml @ 75 mls/hr [id number] IV 03/10/17 11:10 04/09/17 11:09 03/11/17 06:56 Fentanyl Citrate 2500 mcg/Sodium Chloride 250 ml @ 0 mls/hr Q24H IV 03/06/17 21:00 03/13/17 20:59 03/10/17 18:26 Heparin Sodium (Porcine) (Heparin 5000 units/ml) 5,000 units EVERY 12 HOURS SUBQ 03/04/17 21:00 04/03/17 20:59 03/11/17 09:24 Lorazepam (Ativan 2mg/ml 1ml) 1 mg Q4H PRN IV For Anxiety 03/09/17 13:30 03/16/17 23:59 03/10/17 08:39 Meropenem 1 gm/ Sodium Chloride 55 ml @ 110 mls/hr Q12HR@0600,1800 IVPB 03/07/17 18:00 03/16/17 17:59 03/11/17 06:16 Metoclopramide HCl (Reglan) 10 mg Q8HR IVP 03/10/17 20:00 04/09/17 19:59 03/11/17 06:16 Midazolam HCl (Versed 2mg/2ml vial) 1 mg Q2H PRN IVP agitation 03/04/17 11:45 04/03/17 11:44 03/09/17 12:52 Pantoprazole (Protonix) 40 mg Q12HR IVP 03/04/17 21:00 04/03/17 20:59 03/11/17 09:23 Potassium Phosphate 30 mm/ Sodium Chloride 285 ml @ 47.5 mls/hr ONCE ONCE IV 03/11/17 10:00 03/11/17 15:59 Alise Polanco M.D. Mar 11, 2017 09:54
[2017-03-11] MEDS ORDERED: Potassium Phosphate 30 MM in NS 275 ML IV ONE (10:00)
--- NOTE | 2017-03-11 10:49 | Diagnostic Imaging Report ---
APPROVED REPORT CPT Code: 07905 Present Symptoms Shortness of breath Comments: Technically difficult, limited study due to bilateral contracture. Technically difficult, limited study due to bilateral contracture. RIGHT LEG: Venous imaging reveals a patent deep venous system. There is no evidence of thrombus within the femoral, popliteal or tibial segments. The greater saphenous vein is also within normal limits. Doppler indicates normal spontaneous flow within these segments. The proximal and mid superficial femoral veins and calf veins were not well visualized due to contracture. LEFT LEG: Venous imaging reveals a patent deep venous system. There is no evidence of thrombus within the femoral, or tibial segments. The greater saphenous vein is also within normal limits. Doppler indicates normal spontaneous flow within these segments. The popliteal vein was not visualized due to contracture. The calf veins were not well visualized due to contracture.
[2017-03-11] MEDS ORDERED: Vancomycin 1250mg/D5W 250ml IVPB ONE (11:00)
[2017-03-11 11:15] LABS: BILIRUBIN, URINE NEGATIVE (NEGATIVE); GLUCOSE, URINE (UA) NEGATIVE (NEGATIVE); KETONES,URINE NEGATIVE (NEGATIVE); LEUKOCYTE ESTERASE ,URINE 1+ (NEGATIVE); NITRITE,URINE NEGATIVE (NEGATIVE); PH,URINE 5 (4.5-8.0); PROTEIN,URINE 2+ (NEGATIVE); UROBILINOGEN,URINE 8 MG/DL (0.0-1.0)
[2017-03-11 11:22] LABS: COLOR,URINE YELLOW
[2017-03-11 11:23] LABS: APPEARANCE,URINE SLIGHTLY CLOUDY
--- NOTE | 2017-03-11 11:59 | Diagnostic Imaging Report ---
Indication: Reason For Exam: SOB Technique: One view of the chest Comparison: 03/10/2017 Findings: There is persistent elevation of the right hemidiaphragm. There is persistent extensive right upper lobe infiltrate. Infiltrate and pleural fluid in the left mid and lower lung persist, are probably unchanged allowing for slightly greater lung volumes on the current exam. Endotracheal tube, nasogastric tube, left arm PICC remain Impression: Unchanged, over one day, findings as above.
--- NOTE | 2017-03-11 12:10 | Nephrology Progress Note ---
Assessment/Plan Problem List: (1) Respiratory disorder with ventilator dependence (2) UTI (urinary tract infection) (3) Hypernatremia (4) Acute renal failure Assessment - Na 148 - Acute renal failure cr 1.1 to 2.4 to 2.1 to 1.9 to 1.5 WNL - Chronic paranoid schizophrenia - Respiratory disorder with ventilator dependence - Healthcare associated bacterial pneumonia - UTI (urinary tract infection) - SIRS (systemic inflammatory response syndrome) - Alzheimer disease - Hypokalemia - Hypernatremia / due to water deficit improving with D5 resolving Plan plan: D5w Water NGT Pulm support Antibiotics monitor renal parameters K Phos IV per orders Subjective ROS Limited/Unobtainable: Yes Objective Objective Last 24 Hour Vital Signs Date Time Temp Pulse Resp B/P (MAP) Pulse Ox O2 Delivery O2 Flow Rate FiO2 03/11/17 11:00 93 25 105/50 98 Mechanical Ventilator 40 03/11/17 10:55 40 03/11/17 10:54 93 36 40 03/11/17 10:00 26 03/11/17 10:00 92 25 87/24 99 Mechanical Ventilator 40 03/11/17 09:45 40 03/11/17 09:40 100 03/11/17 09:20 100 22 40 03/11/17 09:00 99.3 92 24 83/41 99 Mechanical Ventilator 40 03/11/17 09:00 24 03/11/17 08:00 99.7 95 29 93/46 97 Mechanical Ventilator 40 03/11/17 08:00 40 03/11/17 08:00 100 03/11/17 08:00 29 03/11/17 07:18 98 20 100 Mechanical Ventilator 40 03/11/17 07:08 97 24 40 03/11/17 07:01 99 18 96 Mechanical Ventilator 40 03/11/17 06:50 98 32 155/74 95 Mechanical Ventilator 40 03/11/17 06:30 95 23 97 Mechanical Ventilator 40 03/11/17 06:00 92 23 89/48 96 Mechanical Ventilator 40 03/11/17 05:30 96 34 130/51 97 Mechanical Ventilator 40 03/11/17 05:00 99.5 91 34 156/57 97 Mechanical Ventilator 40 03/11/17 04:56 82 21 40 03/11/17 04:30 85 24 86/41 99 Mechanical Ventilator 40 03/11/17 04:00 24 03/11/17 04:00 87 03/11/17 04:00 40 03/11/17 04:00 86 24 82/43 99 Mechanical Ventilator 40 03/11/17 03:30 87 23 83/42 99 Mechanical Ventilator 40 03/11/17 03:26 88 23 40 03/11/17 03:00 88 23 88/43 99 Mechanical Ventilator 40 03/11/17 02:49 99.7 03/11/17 02:30 88 22 91/47 99 Mechanical Ventilator 40 03/11/17 02:00 89 23 91/47 99 Mechanical Ventilator 40 03/11/17 01:30 90 24 85/42 99 Mechanical Ventilator 40 03/11/17 01:09 92 16 100 Mechanical Ventilator 40 03/11/17 01:07 91 21 40 03/11/17 01:00 Mechanical Ventilator 40 03/11/17 01:00 91 22 84/43 98 Mechanical Ventilator 40 03/11/17 01:00 91 21 98 Mechanical Ventilator 40 03/11/17 00:41 100.6 03/11/17 00:39 100.6 92 24 83/40 98 03/11/17 00:30 93 21 83/40 97 Mechanical Ventilator 40 03/11/17 00:00 98 03/11/17 00:00 97 29 117/57 98 Mechanical Ventilator 40 03/11/17 00:00 40 03/10/17 23:30 96 24 86/42 98 Mechanical Ventilator 40 03/10/17 23:26 96 26 86/40 98 03/10/17 23:05 95 25 40 03/10/17 23:00 98 25 89/43 98 Mechanical Ventilator 40 03/10/17 22:30 98 23 93/43 98 Mechanical Ventilator 40 03/10/17 22:20 101.9 99 25 91/46 98 Mechanical Ventilator 40 03/10/17 22:00 99 25 89/49 97 Mechanical Ventilator 40 03/10/17 21:30 99 26 95/48 97 Mechanical Ventilator 40 03/10/17 21:03 98 18 40 03/10/17 21:00 100 23 97/48 97 Mechanical Ventilator 40 03/10/17 20:30 101 24 100/44 97 Mechanical Ventilator 40 03/10/17 20:00 40 03/10/17 20:00 99 03/10/17 20:00 101 25 89/44 99 Mechanical Ventilator 40 03/10/17 19:30 98 25 116/52 96 Mechanical Ventilator 40 03/10/17 19:18 104 21 99 Mechanical Ventilator 40 03/10/17 19:12 100 22 96 Mechanical Ventilator 40 03/10/17 19:12 100 23 40 03/10/17 19:00 99 23 94/42 96 Mechanical Ventilator 40 03/10/17 18:26 31 03/10/17 18:00 98 30 120/48 97 Mechanical Ventilator 40 03/10/17 17:08 97 24 40 03/10/17 17:00 99 25 92/46 97 Mechanical Ventilator 40 03/10/17 16:00 101 03/10/17 16:00 40 03/10/17 16:00 99.3 99 26 92/45 97 Mechanical Ventilator 40 03/10/17 15:00 100 26 97/49 96 Mechanical Ventilator 40 03/10/17 14:51 101 24 40 03/10/17 14:00 101 29 90/45 97 Mechanical Ventilator 40 03/10/17 13:14 103 24 100 Mechanical Ventilator 40 03/10/17 13:11 102 16 40 03/10/17 13:05 102 16 100 Mechanical Ventilator 40 03/10/17 13:00 100 31 87/43 94 Mechanical Ventilator 40 Intake and Output 03/10/17 03/11/17 19:00 07:00 Intake Total 724 ml 1268 ml Output Total 755 ml 655 ml Balance -31 ml 613 ml Free Water 100 ml IV Total 624 ml 853 ml Tube Feeding 100 ml 315 ml Output Urine Total 755 ml 655 ml Laboratory Tests 03/11/17 05:00: White Blood Count 12.3H, Red Blood Count 3.31L, Hemoglobin 10.0L, Hematocrit 31.1L, Mean Corpuscular Volume 94, Mean Corpuscular Hemoglobin 30.2, Mean Corpuscular Hemoglobin Concent 32.1, Red Cell Distribution Width 13.3, Platelet Count 242, Mean Platelet Volume 7.9, Neutrophils (%) (Auto) 70.2, Lymphocytes (% ) (Auto) 19.1L, Monocytes (%) (Auto) 8.4, Eosinophils (%) (Auto) 2.1, Basophils (%) (Auto) 0.3, Erythrocyte Sedimentation Rate 94H, Sodium Level 148H, Potassium Level 3.2L, Chloride Level 114H, Carbon Dioxide Level 28, Anion Gap 6 , Blood Urea Nitrogen 17, Creatinine 1.2, Estimat Glomerular Filtration Rate > 60, Glucose Level 114H, Calcium Level 7.0L, Phosphorus Level 2.8, Magnesium Level 2.2, Total Bilirubin 0.6, Direct Bilirubin 0.3, Aspartate Amino Transf ( AST/SGOT) 56H, Alanine Aminotransferase (ALT/SGPT) 33, Alkaline Phosphatase 77, C-Reactive Protein, Quantitative 14.2H, Total Protein 5.6L, Albumin 1.3L 03/11/17 09:20: Arterial Blood pH 7.460H, Arterial Blood Partial Pressure CO2 37.1, Arterial Blood Partial Pressure O2 65.5L, Arterial Blood HCO3 25.9, Arterial Blood Oxygen Saturation 93.3, Arterial Blood Base Excess 2.2, Ulises Test Positive 03/11/17 10:00: Urine Color Yellow, Urine Appearance Slightly cloudy, Urine pH 5, Urine Specific [place] 1.015, Urine Protein 2+H, Urine Glucose (UA) Negative, Urine Ketones Negative, Urine Occult Blood 3+H, Urine Nitrite Negative, Urine Bilirubin Negative, Urine Urobilinogen 8H, Urine Leukocyte Esterase 1+H, Urine RBC 10-15H, Urine WBC 2-4, Urine Squamous Epithelial Cells Occasional, Urine Bacteria Few, Urine Mucus FewH Height (Feet): 5 Height (Inches): 9.00 Weight (Pounds): 130 General Appearance: no apparent distress Cardiovascular: tachycardia Respiratory/Chest: decreased breath sounds Abdomen: soft Objective no change CHACHA NUNES Mar 11, 2017 12:10
[2017-03-11] MEDS: fentaNYL Citrate 2500mcg in NS 250ml IV SCH (20:30)
--- NOTE | 2017-03-11 21:00 | Progress Note ---
DATE: 03/11/2017 CARDIOLOGY PROGRESS NOTE SUBJECTIVE: The patient remains in the intensive care unit. Monitored rhythm, sinus. Blood pressure parameters stable. OBJECTIVE: VITAL SIGNS: Blood pressure 148/93, pulse 106, and respirations 18. LUNGS: Clear. CARDIAC: Regular rhythm and rate. Normal S1 and S2 with a fourth heart sound. ABDOMEN: Soft. EXTREMITIES: No edema. PICC line site is clean and dry. LABORATORY DATA: Reviewed. IMPRESSION: 1. Sepsis with recovered shock. 2. Hypoxic respiratory failure status post intubation, mechanical ventilation. 3. Bacteremia. 4. Healthcare-acquired pneumonia. 5. Acute on chronic renal failure. 6. Dehydration. 7. . 8. Pulmonary hypertension. 9. Hypertensive heart disease. PLAN: 1. Antibiotics. 2. Respiratory hygiene. 3. Ventilator support. 4. Free water replacement. 5. Replace potassium. 6. Protein supplement by feeding tube. 7. Remains critical and guarded. Manuel Manning M.D. DR: JUAN JOB#: [id number] CC:
[2017-03-11] MEDS: Dyna-Hex 2% Top Sol 2oz TOPIC SCH (21:10)
[2017-03-11] MEDS: Docusate 100mg/10ml Liq GT SCH (21:23)
[2017-03-11] MEDS: Miralax 17gm pkt ORAL SCH (21:23)
[2017-03-11] MEDS ORDERED: Fleet's Enema 133ml RECTAL ONE (22:00)
[2017-03-11] MEDS: Vancomycin 750mg/NS 250ml IVPB SCH (23:29)
[2017-03-12] VITALS (24 sets, daily range): BP systolic 90–169; BP diastolic 43–101
[2017-03-12] MEDS: Albuterol/Ipratropium 3ml neb HHN SCH ×4 (01:24→19:31)
[2017-03-12] MEDS: LORazepam Inj 2mg/ml 1ml IV PRN ×3 (04:34→21:26)
[2017-03-12] MEDS: Artificial Tears 1.4% Op Soln BOTH EYES PRN ×2 (05:49→14:23)
[2017-03-12 06:06] LABS: BASOPHILS % (AUTO) 0.3 % (0.0-2.0); EOSINOPHILS % (AUTO) 2.4 % (0.0-3.0); HEMATOCRIT 34.8 % (42.0-52.0); HEMOGLOBIN 11.2 G/DL (14.2-18.0); LYMPHOCYTES % (AUTO) 17.7 % (20.0-45.0); MEAN CORPUSCULAR VOLUME 93 FL (80-99); MONOCYTES % (AUTO) 7.7 % (1.0-10.0); PLATELET COUNT 367 K/UL (150-450); RED BLOOD COUNT 3.74 M/UL (4.70-6.10); RED CELL DISTRIBUTION WIDTH 13.3 % (11.6-14.8); WHITE BLOOD COUNT 14.7 K/UL (4.8-10.8)
[2017-03-12] MEDS: Metoclopramide 10mg/2ml Inj IVP SCH ×3 (06:10→21:05)
[2017-03-12] MEDS: Meropenem 1gm in NS 55ml IVPB SCH ×2 (06:10→17:09)
[2017-03-12 06:36] LABS: ANION GAP 7 mmol/L (5-15); BLOOD UREA NITROGEN 13 mg/dL (7-18); CALCIUM 7.3 MG/DL (8.5-10.1); CARBON DIOXIDE 28 MMOL/L (21-32); CHLORIDE 109 MMOL/L (98-107); POTASSIUM 3.2 MMOL/L (3.5-5.1); SODIUM 144 MMOL/L (136-145)
--- NOTE | 2017-03-12 07:54 | General Progress Note ---
Assessment/Plan Assessment/Plan Assessment/Plan #. Respiratory failure, currently on a vent. currently unable to wean #. Leukocytosis 2/2 Sepsis. ID following, on abx #. Thrombocytopenia has resolved #. Acute anemia. Hgb goal above 7. Transfuse as needed, work up has been reviewed #. COPD #. Hypokalemia. #. Hypernatremia. #.Continue DVT prophylaxis with heparin subcutaneous Subjective Date patient seen: Mar 11, 2017 Allergies: Coded Allergies: No Known Allergies (Unverified , 10/20/16) All Systems: reviewed and negative except above Subjective in icu, on a vent Objective Last 24 Hour Vital Signs Date Time Temp Pulse Resp B/P (MAP) Pulse Ox O2 Delivery O2 Flow Rate FiO2 03/12/17 07:23 106 39 99 Mechanical Ventilator 40 03/12/17 07:15 109 33 99 Mechanical Ventilator 40 03/12/17 07:07 103 26 40 03/12/17 07:00 99.3 103 30 128/91 100 Mechanical Ventilator 40 03/12/17 07:00 20 03/12/17 06:00 100 30 108/54 100 Mechanical Ventilator 40 03/12/17 06:00 33 03/12/17 05:00 101 24 90/43 100 Mechanical Ventilator 40 03/12/17 05:00 33 03/12/17 04:35 101 30 40 03/12/17 04:00 40 03/12/17 04:00 99.5 95 36 132/70 100 Mechanical Ventilator 40 03/12/17 04:00 90 03/12/17 04:00 36 03/12/17 03:12 95 27 40 03/12/17 03:00 94 25 118/58 100 Mechanical Ventilator 40 03/12/17 03:00 29 03/12/17 02:00 94 22 104/59 100 Mechanical Ventilator 40 03/12/17 02:00 22 03/12/17 01:19 90 28 40 03/12/17 01:19 90 26 100 Mechanical Ventilator 40 03/12/17 01:05 91 27 100 Mechanical Ventilator 40 03/12/17 01:00 27 03/12/17 01:00 90 25 104/53 100 Mechanical Ventilator 40 03/12/17 00:00 40 03/12/17 00:00 98.8 90 25 123/64 100 Mechanical Ventilator 40 03/12/17 00:00 90 03/12/17 00:00 31 03/11/17 23:25 89 27 40 03/11/17 23:00 90 27 108/59 99 Mechanical Ventilator 40 03/11/17 23:00 24 03/11/17 22:00 89 26 115/57 100 Mechanical Ventilator 40 03/11/17 22:00 21 03/11/17 21:01 88 29 40 03/11/17 21:00 21 03/11/17 21:00 99.8 03/11/17 21:00 99.1 89 30 113/57 100 Mechanical Ventilator 40 03/11/17 20:30 22 03/11/17 20:00 99.8 93 16 103/52 100 Mechanical Ventilator 40 03/11/17 20:00 40 03/11/17 20:00 91 03/11/17 19:00 100 16 95/50 100 Mechanical Ventilator 40 03/11/17 19:00 19 03/11/17 18:30 102 30 100 Mechanical Ventilator 40 03/11/17 18:30 101 29 40 03/11/17 18:20 101 26 98 Mechanical Ventilator 40 03/11/17 18:11 99.9 03/11/17 18:00 29 03/11/17 18:00 108 30 148/93 95 Mechanical Ventilator 40 03/11/17 17:21 105 25 40 03/11/17 17:00 99.7 100 24 125/65 98 Mechanical Ventilator 40 03/11/17 17:00 25 03/11/17 16:00 99.3 100 33 115/50 98 Mechanical Ventilator 40 03/11/17 16:00 28 03/11/17 16:00 101 03/11/17 16:00 40 03/11/17 15:00 29 03/11/17 15:00 101 29 105/49 98 Mechanical Ventilator 40 03/11/17 14:58 97 25 40 03/11/17 14:00 29 03/11/17 14:00 98 22 109/55 98 Mechanical Ventilator 40 03/11/17 13:00 29 03/11/17 13:00 98 29 117/60 98 Mechanical Ventilator 40 03/11/17 12:58 96 26 100 Mechanical Ventilator 40 03/11/17 12:50 97 25 99 Mechanical Ventilator 40 03/11/17 12:50 97 25 40 03/11/17 12:00 98.9 95 28 107/47 99 Mechanical Ventilator 40 03/11/17 12:00 25 03/11/17 12:00 95 03/11/17 11:00 26 03/11/17 11:00 93 25 105/50 98 Mechanical Ventilator 40 03/11/17 10:55 40 03/11/17 10:54 93 36 40 03/11/17 10:00 26 03/11/17 10:00 92 25 87/24 99 Mechanical Ventilator 40 03/11/17 09:45 40 03/11/17 09:40 100 03/11/17 09:20 100 22 40 03/11/17 09:00 99.3 92 24 83/41 99 Mechanical Ventilator 40 03/11/17 09:00 24 03/11/17 08:00 99.7 95 29 93/46 97 Mechanical Ventilator 40 03/11/17 08:00 40 03/11/17 08:00 100 03/11/17 08:00 29 Intake and Output 03/11/17 03/12/17 19:00 07:00 Intake Total 1599.667 ml 1920.000 ml Output Total 695 ml 975 ml Balance 904.667 ml 945.000 ml Free Water 60 ml 150 ml IV Total 954.667 ml 1170.000 ml Tube Feeding 555 ml 600 ml Other 30 ml Output Urine Total 695 ml 975 ml # Bowel Movements 2 Laboratory Tests 03/11/17 09:20: Arterial Blood pH 7.460H, Arterial Blood Partial Pressure CO2 37.1, Arterial Blood Partial Pressure O2 65.5L, Arterial Blood HCO3 25.9, Arterial Blood Oxygen Saturation 93.3, Arterial Blood Base Excess 2.2, Ulises Test Positive 03/11/17 10:00: Urine Color Yellow, Urine Appearance Slightly cloudy, Urine pH 5, Urine Specific [place] 1.015, Urine Protein 2+H, Urine Glucose (UA) Negative, Urine Ketones Negative, Urine Occult Blood 3+H, Urine Nitrite Negative, Urine Bilirubin Negative, Urine Urobilinogen 8H, Urine Leukocyte Esterase 1+H, Urine RBC 10-15H, Urine WBC 2-4, Urine Squamous Epithelial Cells Occasional, Urine Bacteria Few, Urine Mucus FewH 03/12/17 04:30: White Blood Count 14.7H, Red Blood Count 3.74L, Hemoglobin 11.2L, Hematocrit 34.8L, Mean Corpuscular Volume 93, Mean Corpuscular Hemoglobin 29.9, Mean Corpuscular Hemoglobin Concent 32.2, Red Cell Distribution Width 13.3, Platelet Count 367#, Mean Platelet Volume 7.0, Neutrophils (%) (Auto) 72.0, Lymphocytes ( %) (Auto) 17.7L, Monocytes (%) (Auto) 7.7, Eosinophils (%) (Auto) 2.4, Basophils (%) (Auto) 0.3, Sodium Level 144, Potassium Level 3.2L, Chloride Level 109H, Carbon Dioxide Level 28, Anion Gap 7, Blood Urea Nitrogen 13, Creatinine 1.0, Estimat Glomerular Filtration Rate > 60, Glucose Level 121H, Calcium Level 7.3L Height (Feet): 5 Height (Inches): 9.00 Weight (Pounds): 164 General Appearance: no apparent distress EENT: normal ENT inspection Neck: normal alignment Cardiovascular: normal peripheral pulses Abdomen: normal bowel sounds Extremities: non-tender Skin: normal pigmentation Justin Anthony Mar 12, 2017 07:54
[2017-03-12] MEDS: Pantoprazole Inj IVP SCH ×2 (08:57→21:04)
[2017-03-12] MEDS: Aspirin Baby 81mg NG SCH (08:57)
[2017-03-12] MEDS: Docusate 100mg/10ml Liq GT SCH ×2 (08:57→17:09)
[2017-03-12] MEDS: Heparin 5000 units/ml inj SUBQ SCH ×2 (08:58→21:08)
[2017-03-12] MEDS ORDERED: Albuterol/Ipratropium 3ml neb HHN PRN (09:30)
--- NOTE | 2017-03-12 09:35 | Pulmonolgy Critical Care Note ---
Critical Care - Asmt/Plan Assessment/Plan: ASSESSMENT sepsis with shock (resolved shock) acute hypoxemic RF requiring intubation 03/04 bacteremia with Aerococcus PNA with E coli ESBL possible UTI acute renal failure possible ATN dehydration Hypernatremia ( due to free water deficit) e/lyte imbalance : hypo K, hypo P COPD Alzheimer dementia severe protein calorie malnutrition moderate pulmonary HTN elevated AST Hx of HTN thrombocytopenia dysphagia OA PLAN OF CARE ICU care vent support, pulmonary toilet weaning protocol as tolerated ( taper down and stop Fentanyl gtt) mat possibly need trach if further failure to wean daily CXR and ABG while intubated CXR with persistent RUL infiltrate, patient with leukocytosis and low grade fever abx, ID follows , abx managements per ID sputum cx + E coli ESBL, urine cx negative, initially 03/18 blood cx + Aerococcus , repeated blood cx negative UTD, ID wants to r/o endocarditis ECHO with grossly preserved EF and normal wall motion to the extent visualized, + evidence of moderate pulmonary HTN s/p PICC 03/09 renal parameters improved, creat down to normal, Na down to normal, dc IVF nephro follows replace K, check K and Mg in am monitor cardiorenal parameters, volumes, avoid nephrotoxic cardio follows troponin noted fup with cardio recommendation: ASA, BB, no need for diuresis for now ECHO pending DVT GI prophylaxis monitor counts,heme follows monitor LFT, abdominal US strict aspiration precautions, NGT feeding dietary recom re TF type and goal rate wound care pain management bowel regimen Case discussed and evaluated by supervising physician Critical Care - Objective Last 24 Hour Vital Signs Date Time Temp Pulse Resp B/P (MAP) Pulse Ox O2 Delivery O2 Flow Rate FiO2 03/12/17 09:00 97 25 94/49 100 Mechanical Ventilator 40 03/12/17 08:54 98 25 40 03/12/17 08:00 104 03/12/17 08:00 99.1 100 28 101/60 100 Mechanical Ventilator 40 03/12/17 08:00 40 03/12/17 08:00 20 03/12/17 07:23 106 39 99 Mechanical Ventilator 40 03/12/17 07:15 109 33 99 Mechanical Ventilator 40 03/12/17 07:07 103 26 40 03/12/17 07:00 99.3 103 30 128/91 100 Mechanical Ventilator 40 03/12/17 07:00 20 03/12/17 06:00 100 30 108/54 100 Mechanical Ventilator 40 03/12/17 06:00 33 03/12/17 05:00 101 24 90/43 100 Mechanical Ventilator 40 03/12/17 05:00 33 03/12/17 04:35 101 30 40 03/12/17 04:00 40 03/12/17 04:00 99.5 95 36 132/70 100 Mechanical Ventilator 40 03/12/17 04:00 90 03/12/17 04:00 36 03/12/17 03:12 95 27 40 03/12/17 03:00 94 25 118/58 100 Mechanical Ventilator 40 03/12/17 03:00 29 03/12/17 02:00 94 22 104/59 100 Mechanical Ventilator 40 03/12/17 02:00 22 03/12/17 01:19 90 28 40 03/12/17 01:19 90 26 100 Mechanical Ventilator 40 03/12/17 01:05 91 27 100 Mechanical Ventilator 40 03/12/17 01:00 27 03/12/17 01:00 90 25 104/53 100 Mechanical Ventilator 40 03/12/17 00:00 40 03/12/17 00:00 98.8 90 25 123/64 100 Mechanical Ventilator 40 03/12/17 00:00 90 03/12/17 00:00 31 03/11/17 23:25 89 27 40 03/11/17 23:00 90 27 108/59 99 Mechanical Ventilator 40 03/11/17 23:00 24 03/11/17 22:00 89 26 115/57 100 Mechanical Ventilator 40 03/11/17 22:00 21 03/11/17 21:01 88 29 40 03/11/17 21:00 21 03/11/17 21:00 99.8 03/11/17 21:00 99.1 89 30 113/57 100 Mechanical Ventilator 40 03/11/17 20:30 22 03/11/17 20:00 99.8 93 16 103/52 100 Mechanical Ventilator 40 03/11/17 20:00 40 03/11/17 20:00 91 03/11/17 19:00 100 16 95/50 100 Mechanical Ventilator 40 03/11/17 19:00 19 03/11/17 18:30 102 30 100 Mechanical Ventilator 40 03/11/17 18:30 101 29 40 03/11/17 18:20 101 26 98 Mechanical Ventilator 40 03/11/17 18:11 99.9 03/11/17 18:00 29 03/11/17 18:00 108 30 148/93 95 Mechanical Ventilator 40 03/11/17 17:21 105 25 40 03/11/17 17:00 99.7 100 24 125/65 98 Mechanical Ventilator 40 03/11/17 17:00 25 03/11/17 16:00 99.3 100 33 115/50 98 Mechanical Ventilator 40 03/11/17 16:00 28 03/11/17 16:00 101 03/11/17 16:00 40 03/11/17 15:00 29 03/11/17 15:00 101 29 105/49 98 Mechanical Ventilator 40 03/11/17 14:58 97 25 40 03/11/17 14:00 29 03/11/17 14:00 98 22 109/55 98 Mechanical Ventilator 40 03/11/17 13:00 29 03/11/17 13:00 98 29 117/60 98 Mechanical Ventilator 40 03/11/17 12:58 96 26 100 Mechanical Ventilator 40 03/11/17 12:50 97 25 99 Mechanical Ventilator 40 03/11/17 12:50 97 25 40 03/11/17 12:00 98.9 95 28 107/47 99 Mechanical Ventilator 40 03/11/17 12:00 25 03/11/17 12:00 95 03/11/17 11:00 26 03/11/17 11:00 93 25 105/50 98 Mechanical Ventilator 40 03/11/17 10:55 40 03/11/17 10:54 93 36 40 03/11/17 10:00 26 03/11/17 10:00 92 25 87/24 99 Mechanical Ventilator 40 03/11/17 09:45 40 03/11/17 09:40 100 Objective: Status: sedated, on Vent AC 450-16-40% Condition: critical HEENT: atraumatic, normocephalic, - OP with ET in place, intact, NGT with TF Lungs: decreased BS on the right with some scattered rhonchi Heart: HR/BP stable, LUE PICC line intact Abdomen: soft, non-tender, active bowel sounds Extremities: no C/C/E Critical Care - Subjective ROS Limited/Unobtainable: Yes Interval Events: leukocytosis worse, low grade fever not tolerating weaning K-3.2 CXR with persistent R lobe infiltrate Condition: critical IV Access: PICC - LUE intact EKG Rhythm: Sinus Rhythm FI02: 40 Vent Support Breath Rate: 16 Vent Support Mode: AC Vent Tidal Volume: 450 Sputum Amount: None PEEP: 5.0 PIP: 33 Tube Feeding Amount: 50 I&O: Intake and Output 03/11/17 03/12/17 19:00 07:00 Intake Total 1599.667 ml 1920.000 ml Output Total 695 ml 975 ml Balance 904.667 ml 945.000 ml Free Water 60 ml 150 ml IV Total 954.667 ml 1170.000 ml Tube Feeding 555 ml 600 ml Other 30 ml Output Urine Total 695 ml 975 ml # Bowel Movements 2 CXR: There is persistent extensive right upper lobe infiltrate. Infiltrate and pleural fluid in the left mid and lower lung persist, are probably unchanged allowing for slightly greater lung volumes on the current exam. Endotracheal tube, nasogastric tube, left arm PICC remai ET-Tube: 7.5 ET Position: 25 Mane ([facility] NP Mar 12, 2017 09:35
--- NOTE | 2017-03-12 09:57 | Infectious Diseases Prog Note ---
Assessment/Plan Assessment/Plan ASSESSMENT: The patient is a 71-year-old male with: Aerococcus urinae bacteremia- ?source UTI however Ucx neg; r/o endocarditis as has been associated with endocarditis in the elderly. -03/03 Bcx 1/4 +; 03/06 NTD x4 -Elevated CRp 21.0 03/06 -03/03 TTE: no vegetations, no significant valve abnormalities Sepsis. Leukocytosis , overall improved; today slightly worse FEvers- improving HCAP Scx : ESBL EColi ; now new infiltrate- r/o superinfection with another bacteria -CXR 03/11: persistent extensive right upper lobe infiltrate. Infiltrate and pleural fluid in the left mid and lower lung persist, are probably unchanged allowing for slightly greater lung volumes on the current exam. -CXR 03/09: New right pulmonary infiltrate. Possible urinary tract infection 03/04 ucx neg; repeat u/a 03/11 u/a no pyuria Elevated inflammatory markers -ESR 94, CRP 14.2 03/11; improving Influenza negative AST Elevation Positive cardiac enzymes. Acute renal failure, improving Dysphagia. Osteoarthritis. Hypertension. COPD. History of GERD History of H. pylori in the past Dementia with psychosis PLAN: continue IV Merrem d# 5 /10-14 for ESBL PNA and aerococcus bacteremia and IV Vancomycin #2 given fevers and new infiltrates awaiting repeat cultures 03/08 SP vancomycin d# 5 03/07 SP Zosyn d# 4 f.u repeat sputum cx and repeat Bcx, u/a with reflex Monitor CBC/CMP.; Trend WBC Monitor cultures (blood ) Monitor chest x-ray. Monitor renal function. Subjective Allergies: Coded Allergies: No Known Allergies (Unverified , 10/20/16) Subjective afebrile in >24hrs leukocytosis mildly worst u/a no pyuria Objective Vital Signs Last 24 Hour Vital Signs Date Time Temp Pulse Resp B/P (MAP) Pulse Ox O2 Delivery O2 Flow Rate FiO2 03/12/17 09:00 97 25 94/49 100 Mechanical Ventilator 40 03/12/17 09:00 20 03/12/17 08:54 98 25 40 03/12/17 08:00 104 03/12/17 08:00 99.1 100 28 101/60 100 Mechanical Ventilator 40 03/12/17 08:00 40 03/12/17 08:00 20 03/12/17 07:23 106 39 99 Mechanical Ventilator 40 03/12/17 07:15 109 33 99 Mechanical Ventilator 40 03/12/17 07:07 103 26 40 03/12/17 07:00 99.3 103 30 128/91 100 Mechanical Ventilator 40 03/12/17 07:00 20 03/12/17 06:00 100 30 108/54 100 Mechanical Ventilator 40 03/12/17 06:00 33 03/12/17 05:00 101 24 90/43 100 Mechanical Ventilator 40 03/12/17 05:00 33 03/12/17 04:35 101 30 40 03/12/17 04:00 40 03/12/17 04:00 99.5 95 36 132/70 100 Mechanical Ventilator 40 03/12/17 04:00 90 03/12/17 04:00 36 03/12/17 03:12 95 27 40 03/12/17 03:00 94 25 118/58 100 Mechanical Ventilator 40 03/12/17 03:00 29 03/12/17 02:00 94 22 104/59 100 Mechanical Ventilator 40 03/12/17 02:00 22 03/12/17 01:19 90 28 40 03/12/17 01:19 90 26 100 Mechanical Ventilator 40 03/12/17 01:05 91 27 100 Mechanical Ventilator 40 03/12/17 01:00 27 03/12/17 01:00 90 25 104/53 100 Mechanical Ventilator 40 03/12/17 00:00 40 03/12/17 00:00 98.8 90 25 123/64 100 Mechanical Ventilator 40 03/12/17 00:00 90 03/12/17 00:00 31 03/11/17 23:25 89 27 40 03/11/17 23:00 90 27 108/59 99 Mechanical Ventilator 40 03/11/17 23:00 24 03/11/17 22:00 89 26 115/57 100 Mechanical Ventilator 40 03/11/17 22:00 21 03/11/17 21:01 88 29 40 03/11/17 21:00 21 03/11/17 21:00 99.8 03/11/17 21:00 99.1 89 30 113/57 100 Mechanical Ventilator 40 03/11/17 20:30 22 03/11/17 20:00 99.8 93 16 103/52 100 Mechanical Ventilator 40 03/11/17 20:00 40 03/11/17 20:00 91 03/11/17 19:00 100 16 95/50 100 Mechanical Ventilator 40 03/11/17 19:00 19 03/11/17 18:30 102 30 100 Mechanical Ventilator 40 03/11/17 18:30 101 29 40 03/11/17 18:20 101 26 98 Mechanical Ventilator 40 03/11/17 18:11 99.9 03/11/17 18:00 29 03/11/17 18:00 108 30 148/93 95 Mechanical Ventilator 40 03/11/17 17:21 105 25 40 03/11/17 17:00 99.7 100 24 125/65 98 Mechanical Ventilator 40 03/11/17 17:00 25 03/11/17 16:00 99.3 100 33 115/50 98 Mechanical Ventilator 40 03/11/17 16:00 28 03/11/17 16:00 101 03/11/17 16:00 40 03/11/17 15:00 29 03/11/17 15:00 101 29 105/49 98 Mechanical Ventilator 40 03/11/17 14:58 97 25 40 03/11/17 14:00 29 03/11/17 14:00 98 22 109/55 98 Mechanical Ventilator 40 03/11/17 13:00 29 03/11/17 13:00 98 29 117/60 98 Mechanical Ventilator 40 03/11/17 12:58 96 26 100 Mechanical Ventilator 40 03/11/17 12:50 97 25 99 Mechanical Ventilator 40 03/11/17 12:50 97 25 40 03/11/17 12:00 98.9 95 28 107/47 99 Mechanical Ventilator 40 03/11/17 12:00 25 03/11/17 12:00 95 03/11/17 11:00 26 03/11/17 11:00 93 25 105/50 98 Mechanical Ventilator 40 03/11/17 10:55 40 03/11/17 10:54 93 36 40 03/11/17 10:00 26 03/11/17 10:00 92 25 87/24 99 Mechanical Ventilator 40 Height (Feet): 5 Height (Inches): 9.00 Weight (Pounds): 164 Objective General Appearance: other - Intubated, limited eval as patient is not following commands EENT: PERRL/EOMI Neck: supple Cardiovascular: tachycardia Respiratory/Chest: rhonchi - bilaterally Abdomen: soft Extremities: other - cachectic appearance Neurologic: other - limited eval as patient is not following commands Laboratory Tests Test 03/11/17 10:00 03/12/17 04:00 03/12/17 04:30 Urine Color Yellow Urine Appearance Slightly cloudy Urine pH 5 (4.5-8.0) Urine Specific [place] 1.015 (1.005-1.035) Urine Protein 2+ (NEGATIVE) H Urine Glucose (UA) Negative (NEGATIVE) Urine Ketones Negative (NEGATIVE) Urine Occult Blood 3+ (NEGATIVE) H Urine Nitrite Negative (NEGATIVE) Urine Bilirubin Negative (NEGATIVE) Urine Urobilinogen 8 MG/DL (0.0-1.0) H Urine Leukocyte Esterase 1+ (NEGATIVE) H Urine RBC 10-15 /HPF (0 - 0) H Urine WBC 2-4 /HPF (0 - 0) Urine Squamous Epithelial Cells Occasional /LPF Urine Bacteria Few /HPF (NONE) Urine Mucus Few /LPF (NONE/OCC) H Arterial Blood pH 7.490 (7.350-7.450) Arterial Blood Partial Pressure CO2 38.5 mmHg (35.0-45.0) Arterial Blood Partial Pressure O2 68.6 mmHg (75.0-100.0) L Arterial Blood HCO3 29.2 mmol/L (22.0-26.0) H Arterial Blood Oxygen Saturation 94.5 % (92.0-98.0) Arterial Blood Base Excess 5.7 Ulises Test Positive White Blood Count 14.7 K/UL (4.8-10.8) H Red Blood Count 3.74 M/UL (4.70-6.10) L Hemoglobin 11.2 G/DL (14.2-18.0) L Hematocrit 34.8 % (42.0-52.0) L Mean Corpuscular Volume 93 FL (80-99) Mean Corpuscular Hemoglobin 29.9 PG (27.0-31.0) Mean Corpuscular Hemoglobin Concent 32.2 G/DL (32.0-36.0) Red Cell Distribution Width 13.3 % (11.6-14.8) Platelet Count 367 K/UL (150-450) # Mean Platelet Volume 7.0 FL (6.5-10.1) Neutrophils (%) (Auto) 72.0 % (45.0-75.0) Lymphocytes (%) (Auto) 17.7 % (20.0-45.0) L Monocytes (%) (Auto) 7.7 % (1.0-10.0) Eosinophils (%) (Auto) 2.4 % (0.0-3.0) Basophils (%) (Auto) 0.3 % (0.0-2.0) Sodium Level 144 MMOL/L (136-145) Potassium Level 3.2 MMOL/L (3.5-5.1) L Chloride Level 109 MMOL/L (98-107) H Carbon Dioxide Level 28 MMOL/L (21-32) Anion Gap 7 mmol/L (5-15) Blood Urea Nitrogen 13 mg/dL (7-18) Creatinine 1.0 MG/DL (0.55-1.30) Estimat Glomerular Filtration Rate > 60 mL/min (>60) Glucose Level 121 MG/DL (74-106) H Calcium Level 7.3 MG/DL (8.5-10.1) L Current Medications Medications (Trade) Dose Ordered Sig/Ant Route PRN Reason Start Time Stop Time Status Last Admin Dose Admin Acetaminophen (Tylenol) 650 mg Q4H PRN ORAL Mild Pain/Temp > 100.5 03/04/17 08:45 04/03/17 08:44 03/11/17 17:12 Albuterol/ Ipratropium (Albuterol/ Ipratropium) 3 ml Q4HRT PRN N sob 03/12/17 09:30 03/17/17 09:29 UNV Albuterol/ Ipratropium (Albuterol/ Ipratropium) 3 ml Q6HRT [facility] 03/09/17 13:00 03/14/17 23:59 03/12/17 07:13 Artificial Tears (Akwa-Tears) 2 drop Q2H PRN BOTH EYES Dry Eyes 03/09/17 09:15 04/08/17 09:14 03/12/17 05:49 Aspirin (ASA) 81 mg DAILY NG 03/06/17 14:15 04/05/17 14:14 03/12/17 08:57 Chlorhexidine Gluconate (Lisa-Hex 2%) 1 applic DAILY@2000 TOPIC 03/09/17 20:00 04/08/17 19:59 03/11/17 21:10 Docusate Sodium (Colace) 100 mg BID GT 03/11/17 21:30 04/10/17 21:29 03/12/17 08:57 Fentanyl Citrate 2500 mcg/Sodium Chloride 250 ml @ 0 mls/hr Q24H IV 03/06/17 21:00 03/13/17 20:59 03/11/17 20:30 Heparin Sodium (Porcine) (Heparin 5000 units/ml) 5,000 units EVERY 12 HOURS SUBQ 03/04/17 21:00 04/03/17 20:59 03/12/17 08:58 Lorazepam (Ativan 2mg/ml 1ml) 1 mg Q4H PRN IV For Anxiety 03/09/17 13:30 03/16/17 23:59 03/12/17 04:34 Meropenem 1 gm/ Sodium Chloride 55 ml @ 110 mls/hr Q12HR@0600,1800 IVPB 03/07/17 18:00 03/16/17 17:59 03/12/17 06:10 Metoclopramide HCl (Reglan) 10 mg Q8HR IVP 03/10/17 20:00 04/09/17 19:59 03/12/17 06:10 Midazolam HCl (Versed 2mg/2ml vial) 1 mg Q2H PRN IVP agitation 03/04/17 11:45 04/03/17 11:44 03/09/17 12:52 Pantoprazole (Protonix) 40 mg Q12HR IVP 03/04/17 21:00 04/03/17 20:59 03/12/17 08:57 Polyethylene Glycol (Miralax) 17 gm BEDTIME ORAL 03/11/17 21:30 04/10/17 21:29 03/11/17 21:23 Vancomycin HCl (Vanco rx to dose) 1 ea DAILY PRN MISC Per rx protocol 03/11/17 10:00 04/10/17 09:59 Vancomycin/Sodium Chloride 250 ml @ 166.667 mls/hr Q12H IVPB 03/11/17 23:00 03/16/17 22:59 03/11/17 23:29 Alise Polanco M.D. Mar 12, 2017 09:57
[2017-03-12] MEDS: Vancomycin 750mg/NS 250ml IVPB SCH ×2 (10:25→22:50)
--- NOTE | 2017-03-12 11:44 | Nephrology Progress Note ---
Assessment/Plan Problem List: (1) Respiratory disorder with ventilator dependence (2) UTI (urinary tract infection) (3) Hypernatremia (4) Acute renal failure Assessment - Na 148 - Acute renal failure cr 1.1 to 2.4 to 2.1 to 1.9 to 1.5 WNL - Chronic paranoid schizophrenia - Respiratory disorder with ventilator dependence - Healthcare associated bacterial pneumonia - UTI (urinary tract infection) - SIRS (systemic inflammatory response syndrome) - Alzheimer disease - Hypokalemia - Hypernatremia / due to water deficit improving with D5 resolving Plan plan: D5w K supplement Water NGT Pulm support Antibiotics monitor renal parameters K Phos as needed per orders Subjective ROS Limited/Unobtainable: Yes Objective Objective Last 24 Hour Vital Signs Date Time Temp Pulse Resp B/P (MAP) Pulse Ox O2 Delivery O2 Flow Rate FiO2 03/12/17 11:00 94 29 99/52 100 Mechanical Ventilator 40 03/12/17 11:00 20 03/12/17 10:52 92 24 40 03/12/17 10:00 99.2 96 29 94/53 100 Mechanical Ventilator 40 03/12/17 10:00 20 03/12/17 09:00 97 25 94/49 100 Mechanical Ventilator 40 03/12/17 09:00 20 03/12/17 08:54 98 25 40 03/12/17 08:00 104 03/12/17 08:00 99.1 100 28 101/60 100 Mechanical Ventilator 40 03/12/17 08:00 40 03/12/17 08:00 20 03/12/17 07:23 106 39 99 Mechanical Ventilator 40 03/12/17 07:15 109 33 99 Mechanical Ventilator 40 03/12/17 07:07 103 26 40 03/12/17 07:00 99.3 103 30 128/91 100 Mechanical Ventilator 40 03/12/17 07:00 20 03/12/17 06:00 100 30 108/54 100 Mechanical Ventilator 40 03/12/17 06:00 33 03/12/17 05:00 101 24 90/43 100 Mechanical Ventilator 40 03/12/17 05:00 33 03/12/17 04:35 101 30 40 03/12/17 04:00 40 03/12/17 04:00 99.5 95 36 132/70 100 Mechanical Ventilator 40 03/12/17 04:00 90 03/12/17 04:00 36 03/12/17 03:12 95 27 40 03/12/17 03:00 94 25 118/58 100 Mechanical Ventilator 40 03/12/17 03:00 29 03/12/17 02:00 94 22 104/59 100 Mechanical Ventilator 40 03/12/17 02:00 22 03/12/17 01:19 90 28 40 03/12/17 01:19 90 26 100 Mechanical Ventilator 40 03/12/17 01:05 91 27 100 Mechanical Ventilator 40 03/12/17 01:00 27 03/12/17 01:00 90 25 104/53 100 Mechanical Ventilator 40 03/12/17 00:00 40 03/12/17 00:00 98.8 90 25 123/64 100 Mechanical Ventilator 40 03/12/17 00:00 90 03/12/17 00:00 31 03/11/17 23:25 89 27 40 03/11/17 23:00 90 27 108/59 99 Mechanical Ventilator 40 03/11/17 23:00 24 03/11/17 22:00 89 26 115/57 100 Mechanical Ventilator 40 03/11/17 22:00 21 03/11/17 21:01 88 29 40 03/11/17 21:00 21 03/11/17 21:00 99.8 03/11/17 21:00 99.1 89 30 113/57 100 Mechanical Ventilator 40 03/11/17 20:30 22 03/11/17 20:00 99.8 93 16 103/52 100 Mechanical Ventilator 40 03/11/17 20:00 40 03/11/17 20:00 91 03/11/17 19:00 100 16 95/50 100 Mechanical Ventilator 40 03/11/17 19:00 19 03/11/17 18:30 102 30 100 Mechanical Ventilator 40 03/11/17 18:30 101 29 40 03/11/17 18:20 101 26 98 Mechanical Ventilator 40 03/11/17 18:11 99.9 03/11/17 18:00 29 03/11/17 18:00 108 30 148/93 95 Mechanical Ventilator 40 03/11/17 17:21 105 25 40 03/11/17 17:00 99.7 100 24 125/65 98 Mechanical Ventilator 40 03/11/17 17:00 25 03/11/17 16:00 99.3 100 33 115/50 98 Mechanical Ventilator 40 03/11/17 16:00 28 03/11/17 16:00 101 03/11/17 16:00 40 03/11/17 15:00 29 03/11/17 15:00 101 29 105/49 98 Mechanical Ventilator 40 03/11/17 14:58 97 25 40 03/11/17 14:00 29 03/11/17 14:00 98 22 109/55 98 Mechanical Ventilator 40 03/11/17 13:00 29 03/11/17 13:00 98 29 117/60 98 Mechanical Ventilator 40 03/11/17 12:58 96 26 100 Mechanical Ventilator 40 03/11/17 12:50 97 25 99 Mechanical Ventilator 40 03/11/17 12:50 97 25 40 03/11/17 12:00 98.9 95 28 107/47 99 Mechanical Ventilator 40 03/11/17 12:00 25 03/11/17 12:00 95 Intake and Output 03/11/17 03/12/17 19:00 07:00 Intake Total 1599.667 ml 1920.000 ml Output Total 695 ml 975 ml Balance 904.667 ml 945.000 ml Free Water 60 ml 150 ml IV Total 954.667 ml 1170.000 ml Tube Feeding 555 ml 600 ml Other 30 ml Output Urine Total 695 ml 975 ml # Bowel Movements 2 Laboratory Tests 03/12/17 04:00: Arterial Blood pH 7.490H, Arterial Blood Partial Pressure CO2 38.5, Arterial Blood Partial Pressure O2 68.6L, Arterial Blood HCO3 29.2H, Arterial Blood Oxygen Saturation 94.5, Arterial Blood Base Excess 5.7, Ulises Test Positive 03/12/17 04:30: White Blood Count 14.7H, Red Blood Count 3.74L, Hemoglobin 11.2L, Hematocrit 34.8L, Mean Corpuscular Volume 93, Mean Corpuscular Hemoglobin 29.9, Mean Corpuscular Hemoglobin Concent 32.2, Red Cell Distribution Width 13.3, Platelet Count 367#, Mean Platelet Volume 7.0, Neutrophils (%) (Auto) 72.0, Lymphocytes ( %) (Auto) 17.7L, Monocytes (%) (Auto) 7.7, Eosinophils (%) (Auto) 2.4, Basophils (%) (Auto) 0.3, Sodium Level 144, Potassium Level 3.2L, Chloride Level 109H, Carbon Dioxide Level 28, Anion Gap 7, Blood Urea Nitrogen 13, Creatinine 1.0, Estimat Glomerular Filtration Rate > 60, Glucose Level 121H, Calcium Level 7.3L Height (Feet): 5 Height (Inches): 9.00 Weight (Pounds): 164 General Appearance: no apparent distress Cardiovascular: tachycardia Respiratory/Chest: decreased breath sounds Abdomen: distended Objective no change CHACHA NUNES Mar 12, 2017 11:44
--- NOTE | 2017-03-12 12:14 | Diagnostic Imaging Report ---
Indication: Dyspnea Comparison: 03/11/2017 A single view chest radiograph was obtained. Findings: Persistent right upper lobe infiltrate demonstrated. Left basilar infiltrate also noted. There may be a small left pleural effusion. Persistent volume loss of the right lung noted with elevation of the right hemidiaphragm. Tubes and lines are stable. IMPRESSION: No change compared to the previous day
[2017-03-12] MEDS: Dyna-Hex 2% Top Sol 2oz TOPIC SCH (21:04)
[2017-03-12] MEDS: Miralax 17gm pkt ORAL SCH (21:05)
[2017-03-12] MEDS: fentaNYL Citrate 2500mcg in NS 250ml IV SCH (21:09)
--- NOTE | 2017-03-12 21:17 | General Progress Note ---
Assessment/Plan Assessment/Plan Assessment/Plan #. Respiratory failure, currently on a vent. #. Leukocytosis 2/2 Sepsis. ID following, on abx #. UTI #. Thrombocytopenia has resolved #. Acute anemia. Hgb goal above 7. Transfuse as needed, work up has been reviewed #. COPD #. Hypokalemia. #. Hypernatremia. #.Continue DVT prophylaxis with heparin subcutaneous Subjective ROS Limited/Unobtainable: Yes Allergies: Coded Allergies: No Known Allergies (Unverified , 10/20/16) All Systems: reviewed and negative except above Subjective sedate Objective Last 24 Hour Vital Signs Date Time Temp Pulse Resp B/P (MAP) Pulse Ox O2 Delivery O2 Flow Rate FiO2 03/12/17 21:09 42 03/12/17 20:00 100.9 98 42 169/101 95 Mechanical Ventilator 40 03/12/17 19:39 106 18 100 Mechanical Ventilator 40 03/12/17 19:30 100 16 100 Mechanical Ventilator 40 03/12/17 19:30 100 16 40 03/12/17 19:00 20 03/12/17 19:00 98 28 118/65 98 Mechanical Ventilator 40 03/12/17 18:00 20 03/12/17 18:00 98.8 99 29 110/59 99 Mechanical Ventilator 40 03/12/17 17:00 20 03/12/17 17:00 95 29 105/61 100 Mechanical Ventilator 40 03/12/17 16:38 102 44 40 03/12/17 16:00 40 03/12/17 16:00 99.1 96 26 109/57 100 Mechanical Ventilator 40 03/12/17 16:00 95 03/12/17 16:00 20 03/12/17 15:00 20 03/12/17 15:00 95 25 102/53 100 Mechanical Ventilator 40 03/12/17 14:42 95 29 40 03/12/17 14:00 20 03/12/17 14:00 97 29 109/72 99 Mechanical Ventilator 40 03/12/17 13:00 91 25 96/62 100 Mechanical Ventilator 40 03/12/17 13:00 20 03/12/17 12:46 93 41 99 Mechanical Ventilator 40 03/12/17 12:36 91 46 99 Mechanical Ventilator 40 03/12/17 12:33 95 46 40 03/12/17 12:00 98.9 89 22 97/54 100 Mechanical Ventilator 40 03/12/17 12:00 40 03/12/17 12:00 20 03/12/17 12:00 95 03/12/17 11:00 94 29 99/52 100 Mechanical Ventilator 40 03/12/17 11:00 20 03/12/17 10:52 92 24 40 03/12/17 10:00 99.2 96 29 94/53 100 Mechanical Ventilator 40 03/12/17 10:00 20 03/12/17 09:00 97 25 94/49 100 Mechanical Ventilator 40 03/12/17 09:00 20 03/12/17 08:54 98 25 40 03/12/17 08:00 104 03/12/17 08:00 99.1 100 28 101/60 100 Mechanical Ventilator 40 03/12/17 08:00 40 03/12/17 08:00 20 03/12/17 07:23 106 39 99 Mechanical Ventilator 40 03/12/17 07:15 109 33 99 Mechanical Ventilator 40 03/12/17 07:07 103 26 40 03/12/17 07:00 99.3 103 30 128/91 100 Mechanical Ventilator 40 03/12/17 07:00 20 03/12/17 06:00 100 30 108/54 100 Mechanical Ventilator 40 03/12/17 06:00 33 03/12/17 05:00 101 24 90/43 100 Mechanical Ventilator 40 03/12/17 05:00 33 03/12/17 04:35 101 30 40 03/12/17 04:00 40 03/12/17 04:00 99.5 95 36 132/70 100 Mechanical Ventilator 40 03/12/17 04:00 90 03/12/17 04:00 36 03/12/17 03:12 95 27 40 03/12/17 03:00 94 25 118/58 100 Mechanical Ventilator 40 03/12/17 03:00 29 03/12/17 02:00 94 22 104/59 100 Mechanical Ventilator 40 03/12/17 02:00 22 03/12/17 01:19 90 28 40 03/12/17 01:19 90 26 100 Mechanical Ventilator 40 03/12/17 01:05 91 27 100 Mechanical Ventilator 40 03/12/17 01:00 27 03/12/17 01:00 90 25 104/53 100 Mechanical Ventilator 40 03/12/17 00:00 40 03/12/17 00:00 98.8 90 25 123/64 100 Mechanical Ventilator 40 03/12/17 00:00 90 03/12/17 00:00 31 03/11/17 23:25 89 27 40 03/11/17 23:00 90 27 108/59 99 Mechanical Ventilator 40 03/11/17 23:00 24 03/11/17 22:00 89 26 115/57 100 Mechanical Ventilator 40 03/11/17 22:00 21 Intake and Output 03/11/17 03/12/17 19:00 07:00 Intake Total 1599.667 ml 1920.000 ml Output Total 695 ml 975 ml Balance 904.667 ml 945.000 ml Free Water 60 ml 150 ml IV Total 954.667 ml 1170.000 ml Tube Feeding 555 ml 600 ml Other 30 ml Output Urine Total 695 ml 975 ml # Bowel Movements 2 Laboratory Tests 03/12/17 04:00: Arterial Blood pH 7.490H, Arterial Blood Partial Pressure CO2 38.5, Arterial Blood Partial Pressure O2 68.6L, Arterial Blood HCO3 29.2H, Arterial Blood Oxygen Saturation 94.5, Arterial Blood Base Excess 5.7, Ulises Test Positive 03/12/17 04:30: White Blood Count 14.7H, Red Blood Count 3.74L, Hemoglobin 11.2L, Hematocrit 34.8L, Mean Corpuscular Volume 93, Mean Corpuscular Hemoglobin 29.9, Mean Corpuscular Hemoglobin Concent 32.2, Red Cell Distribution Width 13.3, Platelet Count 367#, Mean Platelet Volume 7.0, Neutrophils (%) (Auto) 72.0, Lymphocytes ( %) (Auto) 17.7L, Monocytes (%) (Auto) 7.7, Eosinophils (%) (Auto) 2.4, Basophils (%) (Auto) 0.3, Sodium Level 144, Potassium Level 3.2L, Chloride Level 109H, Carbon Dioxide Level 28, Anion Gap 7, Blood Urea Nitrogen 13, Creatinine 1.0, Estimat Glomerular Filtration Rate > 60, Glucose Level 121H, Calcium Level 7.3L Height (Feet): 5 Height (Inches): 9.00 Weight (Pounds): 164 General Appearance: no apparent distress EENT: normal ENT inspection Neck: normal alignment Cardiovascular: normal peripheral pulses 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 Mar 12, 2017 21:17
[2017-03-13] VITALS (24 sets, daily range): BP systolic 87–129; BP diastolic 48–88
[2017-03-13] MEDS: Albuterol/Ipratropium 3ml neb HHN SCH ×4 (01:15→19:51)
--- NOTE | 2017-03-13 02:15 | Progress Note ---
DATE: 03/12/2017 CARDIOLOGY PROGRESS NOTE SUBJECTIVE: The patient is on ventilator support. Continuing on hydration. OBJECTIVE: VITAL SIGNS: Blood pressure 99/52, pulse 94, respirations 29, temperature 99.2. LUNGS: Coarse breath sounds. Scattered rhonchi. HEART: Regular rhythm and rate. Normal S1, S2. ABDOMEN: Soft with trace edema. LABORATORY DATA: White count 14.7, hemoglobin 11.2, potassium 3.2, BUN 13, creatinine 1. IMPRESSION: 1. Sepsis with shock. 2. Bacteremia. 3. Low likelihood of endocarditis based on echocardiogram review. 4. Pulmonary hypertension. 5. Chronic obstructive pulmonary disease. 6. Dehydration. 7. Hyponatremia. 8. Hypovolemia. 9. Acute myocardial ischemia with troponin leak. PLAN: 1. Antimicrobials. 2. Hypotonic IV fluids. 3. DVT prophylaxis. 4. Inhaled bronchodilators. 5. Anti-platelet therapy. 6. No role at this time for any additional cardiovascular medications other than beta-kirk. 7. Replace potassium. 8. Follow up drug levels. Manuel Manning M.D. DR: HELEN JOB#: [id number] CC:
[2017-03-13 05:03] LABS: ANION GAP 7 mmol/L (5-15); BLOOD UREA NITROGEN 12 mg/dL (7-18); CALCIUM 7.4 MG/DL (8.5-10.1); CARBON DIOXIDE 28 MMOL/L (21-32); CHLORIDE 111 MMOL/L (98-107); CREATININE 0.9 MG/DL (0.55-1.30); POTASSIUM 3.5 MMOL/L (3.5-5.1); SODIUM 146 MMOL/L (136-145)
[2017-03-13 05:05] LABS: BASOPHILS % (AUTO) 0.5 % (0.0-2.0); EOSINOPHILS % (AUTO) 1.7 % (0.0-3.0); HEMATOCRIT 33.4 % (42.0-52.0); HEMOGLOBIN 10.4 G/DL (14.2-18.0); LYMPHOCYTES % (AUTO) 14.1 % (20.0-45.0); MEAN CORPUSCULAR VOLUME 94 FL (80-99); MONOCYTES % (AUTO) 7.3 % (1.0-10.0); NEUTROPHILS % (AUTO) 76.5 % (45.0-75.0); PLATELET COUNT 338 K/UL (150-450); RED BLOOD COUNT 3.57 M/UL (4.70-6.10); RED CELL DISTRIBUTION WIDTH 12.9 % (11.6-14.8); WHITE BLOOD COUNT 14.4 K/UL (4.8-10.8)
[2017-03-13] MEDS: Metoclopramide 10mg/2ml Inj IVP SCH ×3 (05:51→23:05)
[2017-03-13] MEDS: Meropenem 1gm in NS 55ml IVPB SCH ×2 (05:52→17:12)
--- NOTE | 2017-03-13 08:04 | Infectious Diseases Prog Note ---
Assessment/Plan Assessment/Plan ASSESSMENT: The patient is a 71-year-old male with: Aerococcus urinae bacteremia- ?source UTI however Ucx neg; r/o endocarditis as has been associated with endocarditis in the elderly. -03/03 Bcx 1/4 +; 03/06 NTD x4 -Elevated CRp 21.0 03/06 -03/03 TTE: no vegetations, no significant valve abnormalities Sepsis. Leukocytosis , overall improved; stable FEvers-ongoing- r/o empyema, intrabdominal source HCAP Scx : ESBL EColi ; now new infiltrate- r/o superinfection with another bacteria -CXR 03/11: persistent extensive right upper lobe infiltrate. Infiltrate and pleural fluid in the left mid and lower lung persist, are probably unchanged allowing for slightly greater lung volumes on the current exam. -CXR 03/09: New right pulmonary infiltrate. Possible urinary tract infection 03/04 ucx neg; repeat u/a 03/11 u/a no pyuria Elevated inflammatory markers -ESR 94, CRP 14.2 03/11; improving Influenza negative AST Elevation Positive cardiac enzymes. Acute renal failure, improving Dysphagia. Osteoarthritis. Hypertension. COPD. History of GERD History of H. pylori in the past Dementia with psychosis PLAN: continue IV Merrem d# 6 /10-14 for ESBL PNA and aerococcus bacteremia and IV Vancomycin #3 given fevers and new infiltrates awaiting repeat cultures 03/08 SP vancomycin d# 5 03/07 SP Zosyn d# 4 -CT chest/abd/p w/ to evaluate for empyema, intrabdominal source of infection given persistent fevers on broad abx tx. f.u repeat sputum cx and repeat Bcx Monitor CBC/CMP.; Trend WBC Monitor cultures (blood ) Monitor chest x-ray. Monitor renal function. Subjective Allergies: Coded Allergies: No Known Allergies (Unverified , 10/20/16) Subjective febrile to 101 leukocytosis stable BCx NTD Objective Vital Signs Last 24 Hour Vital Signs Date Time Temp Pulse Resp B/P (MAP) Pulse Ox O2 Delivery O2 Flow Rate FiO2 03/13/17 07:40 91 24 99 Mechanical Ventilator 40 03/13/17 07:29 91 23 100 Mechanical Ventilator 40 03/13/17 07:25 89 27 40 03/13/17 07:00 86 22 95/54 97 Mechanical Ventilator 40 03/13/17 06:00 87 20 97/57 99 Mechanical Ventilator 40 03/13/17 05:29 85 21 40 03/13/17 05:00 92 28 103/61 99 Mechanical Ventilator 40 03/13/17 04:00 97.7 87 22 99/57 99 Mechanical Ventilator 40 03/13/17 04:00 90 03/13/17 04:00 40 03/13/17 03:25 94 34 40 03/13/17 03:00 22 03/13/17 03:00 92 28 129/84 99 Mechanical Ventilator 40 03/13/17 02:00 22 03/13/17 02:00 95 35 116/88 95 Mechanical Ventilator 40 03/13/17 01:25 94 22 100 Mechanical Ventilator 40 03/13/17 01:15 92 17 40 03/13/17 01:15 92 17 100 Mechanical Ventilator 40 03/13/17 01:00 21 03/13/17 01:00 96 28 120/71 98 Mechanical Ventilator 40 03/13/17 00:00 99.5 94 28 120/74 98 Mechanical Ventilator 40 03/13/17 00:00 40 03/13/17 00:00 24 03/13/17 00:00 97 03/12/17 23:47 99 19 40 03/12/17 23:00 99.8 102 33 118/68 97 Mechanical Ventilator 40 03/12/17 23:00 24 03/12/17 22:04 100.9 03/12/17 22:00 20 03/12/17 22:00 102 21 112/63 99 Mechanical Ventilator 40 03/12/17 21:17 97 31 40 03/12/17 21:09 42 03/12/17 21:00 101.0 111 27 97/59 95 Mechanical Ventilator 40 03/12/17 20:00 98 03/12/17 20:00 40 03/12/17 20:00 100.9 98 42 169/101 95 Mechanical Ventilator 40 03/12/17 19:39 106 18 100 Mechanical Ventilator 40 03/12/17 19:30 100 16 100 Mechanical Ventilator 40 03/12/17 19:30 100 16 40 03/12/17 19:00 20 03/12/17 19:00 98 28 118/65 98 Mechanical Ventilator 40 03/12/17 18:00 20 03/12/17 18:00 98.8 99 29 110/59 99 Mechanical Ventilator 40 03/12/17 17:00 20 03/12/17 17:00 95 29 105/61 100 Mechanical Ventilator 40 03/12/17 16:38 102 44 40 03/12/17 16:00 40 03/12/17 16:00 99.1 96 26 109/57 100 Mechanical Ventilator 40 03/12/17 16:00 95 03/12/17 16:00 20 03/12/17 15:00 20 03/12/17 15:00 95 25 102/53 100 Mechanical Ventilator 40 03/12/17 14:42 95 29 40 03/12/17 14:00 20 03/12/17 14:00 97 29 109/72 99 Mechanical Ventilator 40 03/12/17 13:00 91 25 96/62 100 Mechanical Ventilator 40 03/12/17 13:00 20 03/12/17 12:46 93 41 99 Mechanical Ventilator 40 03/12/17 12:36 91 46 99 Mechanical Ventilator 40 03/12/17 12:33 95 46 40 03/12/17 12:00 98.9 89 22 97/54 100 Mechanical Ventilator 40 03/12/17 12:00 40 03/12/17 12:00 20 03/12/17 12:00 95 03/12/17 11:00 94 29 99/52 100 Mechanical Ventilator 40 03/12/17 11:00 20 03/12/17 10:52 92 24 40 03/12/17 10:00 99.2 96 29 94/53 100 Mechanical Ventilator 40 03/12/17 10:00 20 03/12/17 09:00 97 25 94/49 100 Mechanical Ventilator 40 03/12/17 09:00 20 03/12/17 08:54 98 25 40 03/12/17 08:00 104 03/12/17 08:00 99.1 100 28 101/60 100 Mechanical Ventilator 40 03/12/17 08:00 40 03/12/17 08:00 20 Height (Feet): 5 Height (Inches): 9.00 Weight (Pounds): 162 Objective General Appearance: other - Intubated, limited eval as patient is not following commands EENT: PERRL/EOMI Neck: supple Cardiovascular: tachycardia Respiratory/Chest: rhonchi - bilaterally Abdomen: soft Extremities: other - cachectic appearance Neurologic: other - limited eval as patient is not following commands Microbiology Date/Time Source Procedure Growth Status 03/11/17 11:15 Blood Blood Culture - Preliminary NO GROWTH AFTER 24 HOURS Resulted 03/11/17 10:00 Blood Blood Culture - Preliminary NO GROWTH AFTER 24 HOURS Resulted Laboratory Tests Test 03/12/17 21:45 03/13/17 03:15 Vancomycin Level Trough 12.2 ug/mL (5.0-12.0) H White Blood Count 14.4 K/UL (4.8-10.8) H Red Blood Count 3.57 M/UL (4.70-6.10) L Hemoglobin 10.4 G/DL (14.2-18.0) L Hematocrit 33.4 % (42.0-52.0) L Mean Corpuscular Volume 94 FL (80-99) Mean Corpuscular Hemoglobin 29.3 PG (27.0-31.0) Mean Corpuscular Hemoglobin Concent 31.3 G/DL (32.0-36.0) L Red Cell Distribution Width 12.9 % (11.6-14.8) Platelet Count 338 K/UL (150-450) Mean Platelet Volume 7.0 FL (6.5-10.1) Neutrophils (%) (Auto) 76.5 % (45.0-75.0) H Lymphocytes (%) (Auto) 14.1 % (20.0-45.0) L Monocytes (%) (Auto) 7.3 % (1.0-10.0) Eosinophils (%) (Auto) 1.7 % (0.0-3.0) Basophils (%) (Auto) 0.5 % (0.0-2.0) Sodium Level 146 MMOL/L (136-145) H Potassium Level 3.5 MMOL/L (3.5-5.1) Chloride Level 111 MMOL/L (98-107) H Carbon Dioxide Level 28 MMOL/L (21-32) Anion Gap 7 mmol/L (5-15) Blood Urea Nitrogen 12 mg/dL (7-18) Creatinine 0.9 MG/DL (0.55-1.30) Estimat Glomerular Filtration Rate > 60 mL/min (>60) Glucose Level 95 MG/DL (74-106) Calcium Level 7.4 MG/DL (8.5-10.1) L Magnesium Level 2.3 MG/DL (1.8-2.4) Current Medications Medications (Trade) Dose Ordered Sig/Ant Route PRN Reason Start Time Stop Time Status Last Admin Dose Admin Acetaminophen (Tylenol) 650 mg Q4H PRN ORAL Mild Pain/Temp > 100.5 03/04/17 08:45 04/03/17 08:44 03/13/17 03:33 Albuterol/ Ipratropium (Albuterol/ Ipratropium) 3 ml Q4HRT PRN HHN sob 03/12/17 09:30 03/17/17 09:29 Albuterol/ Ipratropium (Albuterol/ Ipratropium) 3 ml Q6HRT HHN 03/09/17 13:00 03/14/17 23:59 03/13/17 07:25 Artificial Tears (Akwa-Tears) 2 drop Q2H PRN BOTH EYES Dry Eyes 03/09/17 09:15 04/08/17 09:14 03/12/17 14:23 Aspirin (ASA) 81 mg DAILY NG 03/06/17 14:15 04/05/17 14:14 03/12/17 08:57 Carvedilol (Coreg) 3.125 mg EVERY 12 HOURS PEG 03/13/17 09:00 04/12/17 08:59 Chlorhexidine Gluconate (Lisa-Hex 2%) 1 applic DAILY@2000 TOPIC 03/09/17 20:00 04/08/17 19:59 03/12/17 21:04 Docusate Sodium (Colace) 100 mg BID GT 03/11/17 21:30 04/10/17 21:29 03/12/17 17:09 Fentanyl Citrate 2500 mcg/Sodium Chloride 250 ml @ 0 mls/hr Q24H IV 03/06/17 21:00 03/13/17 20:59 03/12/17 21:09 Heparin Sodium (Porcine) (Heparin 5000 units/ml) 5,000 units EVERY 12 HOURS SUBQ 03/04/17 21:00 04/03/17 20:59 03/12/17 21:08 Lorazepam (Ativan 2mg/ml 1ml) 1 mg Q4H PRN IV For Anxiety 03/09/17 13:30 03/16/17 23:59 03/12/17 21:26 Meropenem 1 gm/ Sodium Chloride 55 ml @ 110 mls/hr Q12HR@0600,1800 IVPB 03/07/17 18:00 03/16/17 17:59 03/13/17 05:52 Metoclopramide HCl (Reglan) 10 mg Q8HR IVP 03/10/17 20:00 04/09/17 19:59 03/13/17 05:51 Midazolam HCl (Versed 2mg/2ml vial) 1 mg Q2H PRN IVP agitation 03/04/17 11:45 04/03/17 11:44 03/09/17 12:52 Pantoprazole (Protonix) 40 mg Q12HR IVP 03/04/17 21:00 04/03/17 20:59 03/12/17 21:04 Polyethylene Glycol (Miralax) 17 gm BEDTIME ORAL 03/11/17 21:30 04/10/17 21:29 03/12/17 21:05 Vancomycin HCl (Vanco rx to dose) 1 ea DAILY PRN MISC Per rx protocol 03/11/17 10:00 04/10/17 09:59 Vancomycin HCl 1 gm/Dextrose 275 ml @ 183.708 mls/hr Q12H IVPB 03/13/17 11:00 03/18/17 10:59 Alise Polanco M.D. Mar 13, 2017 08:04
[2017-03-13] MEDS: Docusate 100mg/10ml Liq GT SCH ×2 (08:49→17:12)
[2017-03-13] MEDS: Aspirin Baby 81mg NG SCH (08:49)
[2017-03-13] MEDS: Pantoprazole Inj IVP SCH ×2 (08:49→23:05)
[2017-03-13] MEDS: Artificial Tears 1.4% Op Soln BOTH EYES PRN (08:49)
[2017-03-13] MEDS: Heparin 5000 units/ml inj SUBQ SCH ×2 (08:50→23:08)
--- NOTE | 2017-03-13 09:00 | Progress Note ---
DATE: 03/13/2017 CARDIOLOGY PROGRESS NOTE SUBJECTIVE: The patient's condition remains serious. Prognosis guarded. He is on ventilator support. IV fluids are continued. Echocardiogram was performed and reviewed yesterday. There is low likelihood for endocarditis. OBJECTIVE: VITAL SIGNS: Blood pressure is 99/57, heart rate 87, respiratory rate 22. Afebrile. LUNGS: Ventilator support. Bilateral breath sounds with rhonchi. HEART: Regular rhythm and rate. Normal S1, S2. ABDOMEN: Soft. EXTREMITIES: No edema. LABORATORY DATA: Notable, white count 14, hemoglobin 10. Sodium 146, potassium 3.5, BUN 12, and creatinine 0.9. IMPRESSION: 1. Sepsis, recovering shock. 2. Bacteremia. 3. Dehydration. 4. . 5. Low likelihood for endocarditis. 6. Pulmonary hypertension. 7. Chronic obstructive pulmonary disease. 8. Acute myocardial ischemia with a troponin leak. PLAN: 1. Additional hypotonic IV fluids. 2. DVT prophylaxis. 3. Continue beta-blockade. 4. Monitor electrolytes. Manuel Manning M.D. DR: BAN JOB#: [id number] CC:
--- NOTE | 2017-03-13 09:17 | Diagnostic Imaging Report ---
Indication: Shortness of breath Technique: XRAY Chest 1v Comparison: 03/12/2017 Findings: Elevation of the right hemidiaphragm with extensive opacification of the right lung. This is unchanged. There is increased left basilar/retrocardiac atelectasis/consolidation. Probable small left pleural effusion. Support lines and tubes are unchanged in position. No acute osseous abnormality seen. Impression: Interval worsening of aeration at the left base. Additional findings unchanged.
[2017-03-13] MEDS: LORazepam Inj 2mg/ml 1ml IV PRN ×2 (10:27→17:22)
[2017-03-13] MEDS: Vancomycin 1gm/D5W 275ml IVPB SCH ×4 (11:12→23:07)
--- NOTE | 2017-03-13 11:23 | Nephrology Progress Note ---
Assessment/Plan Problem List: (1) Respiratory disorder with ventilator dependence (2) UTI (urinary tract infection) (3) Hypernatremia (4) Acute renal failure Assessment - Na 148 - Acute renal failure cr 1.1 to 2.4 to 2.1 to 1.9 to 1.5 WNL - Chronic paranoid schizophrenia - Respiratory disorder with ventilator dependence - Healthcare associated bacterial pneumonia - UTI (urinary tract infection) - SIRS (systemic inflammatory response syndrome) - Alzheimer disease - Hypokalemia - Hypernatremia / due to water deficit improving with D5 resolving Plan plan: D5w K supplement Water NGT Pulm support Antibiotics monitor renal parameters K Phos as needed per orders Subjective ROS Limited/Unobtainable: Yes Objective Objective Last 24 Hour Vital Signs Date Time Temp Pulse Resp B/P (MAP) Pulse Ox O2 Delivery O2 Flow Rate FiO2 03/13/17 11:03 90 36 40 03/13/17 11:00 89 22 96/69 97 Mechanical Ventilator 40 03/13/17 10:00 20 03/13/17 10:00 92 29 96/57 97 Mechanical Ventilator 40 03/13/17 09:19 92 27 40 03/13/17 09:00 91 28 105/60 96 Mechanical Ventilator 40 03/13/17 09:00 20 03/13/17 08:49 91 108/58 03/13/17 08:00 87 03/13/17 08:00 20 03/13/17 08:00 97.6 92 29 93/48 96 Mechanical Ventilator 40 03/13/17 08:00 40 03/13/17 07:40 91 24 99 Mechanical Ventilator 40 03/13/17 07:29 91 23 100 Mechanical Ventilator 40 03/13/17 07:25 89 27 40 03/13/17 07:00 86 22 95/54 97 Mechanical Ventilator 40 03/13/17 07:00 20 03/13/17 06:00 87 20 97/57 99 Mechanical Ventilator 40 03/13/17 05:29 85 21 40 03/13/17 05:00 92 28 103/61 99 Mechanical Ventilator 40 03/13/17 04:00 97.7 87 22 99/57 99 Mechanical Ventilator 40 03/13/17 04:00 90 03/13/17 04:00 40 03/13/17 03:25 94 34 40 03/13/17 03:00 22 03/13/17 03:00 92 28 129/84 99 Mechanical Ventilator 40 03/13/17 02:00 22 03/13/17 02:00 95 35 116/88 95 Mechanical Ventilator 40 03/13/17 01:25 94 22 100 Mechanical Ventilator 40 03/13/17 01:15 92 17 40 03/13/17 01:15 92 17 100 Mechanical Ventilator 40 03/13/17 01:00 21 03/13/17 01:00 96 28 120/71 98 Mechanical Ventilator 40 03/13/17 00:00 99.5 94 28 120/74 98 Mechanical Ventilator 40 03/13/17 00:00 40 03/13/17 00:00 24 03/13/17 00:00 97 03/12/17 23:47 99 19 40 03/12/17 23:00 99.8 102 33 118/68 97 Mechanical Ventilator 40 03/12/17 23:00 24 03/12/17 22:04 100.9 03/12/17 22:00 20 03/12/17 22:00 102 21 112/63 99 Mechanical Ventilator 40 03/12/17 21:17 97 31 40 03/12/17 21:09 42 03/12/17 21:00 101.0 111 27 97/59 95 Mechanical Ventilator 40 03/12/17 20:00 98 03/12/17 20:00 40 03/12/17 20:00 100.9 98 42 169/101 95 Mechanical Ventilator 40 03/12/17 19:39 106 18 100 Mechanical Ventilator 40 03/12/17 19:30 100 16 100 Mechanical Ventilator 40 03/12/17 19:30 100 16 40 03/12/17 19:00 20 03/12/17 19:00 98 28 118/65 98 Mechanical Ventilator 40 03/12/17 18:00 20 03/12/17 18:00 98.8 99 29 110/59 99 Mechanical Ventilator 40 03/12/17 17:00 20 03/12/17 17:00 95 29 105/61 100 Mechanical Ventilator 40 03/12/17 16:38 102 44 40 03/12/17 16:00 40 03/12/17 16:00 99.1 96 26 109/57 100 Mechanical Ventilator 40 03/12/17 16:00 95 03/12/17 16:00 20 03/12/17 15:00 20 03/12/17 15:00 95 25 102/53 100 Mechanical Ventilator 40 03/12/17 14:42 95 29 40 03/12/17 14:00 20 03/12/17 14:00 97 29 109/72 99 Mechanical Ventilator 40 03/12/17 13:00 91 25 96/62 100 Mechanical Ventilator 40 03/12/17 13:00 20 03/12/17 12:46 93 41 99 Mechanical Ventilator 40 03/12/17 12:36 91 46 99 Mechanical Ventilator 40 03/12/17 12:33 95 46 40 03/12/17 12:00 98.9 89 22 97/54 100 Mechanical Ventilator 40 03/12/17 12:00 40 03/12/17 12:00 20 03/12/17 12:00 95 Intake and Output 03/12/17 03/13/17 19:00 07:00 Intake Total 1266.000 ml 2928 ml Output Total 980 ml 855 ml Balance 286.000 ml 2073 ml Free Water 150 ml IV Total 566.000 ml 2578 ml Tube Feeding 550 ml 350 ml Output Urine Total 980 ml 855 ml # Bowel Movements 1 1 Laboratory Tests 03/12/17 21:45: Vancomycin Level Trough 12.2H 03/13/17 03:15: White Blood Count 14.4H, Red Blood Count 3.57L, Hemoglobin 10.4L, Hematocrit 33.4L, Mean Corpuscular Volume 94, Mean Corpuscular Hemoglobin 29.3, Mean Corpuscular Hemoglobin Concent 31.3L, Red Cell Distribution Width 12.9, Platelet Count 338, Mean Platelet Volume 7.0, Neutrophils (%) (Auto) 76.5H, Lymphocytes (%) (Auto) 14.1L, Monocytes (%) (Auto) 7.3, Eosinophils (%) (Auto) 1.7, Basophils (%) (Auto) 0.5, Sodium Level 146H, Potassium Level 3.5, Chloride Level 111H, Carbon Dioxide Level 28, Anion Gap 7, Blood Urea Nitrogen 12, Creatinine 0.9, Estimat Glomerular Filtration Rate > 60, Glucose Level 95, Calcium Level 7.4L, Magnesium Level 2.3 03/13/17 07:48: Arterial Blood pH 7.495H, Arterial Blood Partial Pressure CO2 38.6, Arterial Blood Partial Pressure O2 69.0L, Arterial Blood HCO3 29.1H, Arterial Blood Oxygen Saturation 94.1, Arterial Blood Base Excess 5.5, Ulises Test Positive Height (Feet): 5 Height (Inches): 9.00 Weight (Pounds): 162 General Appearance: other - on Vent Cardiovascular: tachycardia Respiratory/Chest: decreased breath sounds Abdomen: soft Objective no change CHACHA NUNES Mar 13, 2017 11:22
--- NOTE | 2017-03-13 12:34 | Critical Care Progress Note ---
Assessment/Plan Assessment/Plan Assessment/Plan: sepsis with shock (resolved shock) acute hypoxemic RF requiring intubation 03/04 bacteremia with Aerococcus PNA acute renal failure Hypernatremia COPD Alzheimer dementia severe protein calorie malnutrition moderate pulmonary HTN Hx of HTN thrombocytopenia dysphagia PLAN care noted IV antibiotics respiratory care Ventilatory support supportive care suction wean as able oxygen therapy prognosis guarded monitor cardiorenal parameters, volumes, avoid nephrotoxic meds DVT GI prophylaxis monitor counts,heme follows monitor LFT NGT feeding wound care pain management medications/laboratory data/nursing notes/ICU care reviewed in detail note reviewed and edited care discussed with RN and RT ICU time spent 37 minutes Critical Care - Subjective I&O: Intake and Output 03/12/17 03/13/17 19:00 07:00 Intake Total 1266.000 ml 2928 ml Output Total 980 ml 855 ml Balance 286.000 ml 2073 ml Free Water 150 ml IV Total 566.000 ml 2578 ml Tube Feeding 550 ml 350 ml Output Urine Total 980 ml 855 ml # Bowel Movements 1 1 Critical Care - Objective ET-Tube: 7.5 ET Position: 25 Last 24 Hour Vital Signs Date Time Temp Pulse Resp B/P (MAP) Pulse Ox O2 Delivery O2 Flow Rate FiO2 03/13/17 12:00 20 03/13/17 12:00 88 03/13/17 12:00 40 03/13/17 12:00 98.2 89 29 99/56 96 Mechanical Ventilator 40 03/13/17 11:03 90 36 40 03/13/17 11:00 89 22 96/69 97 Mechanical Ventilator 40 03/13/17 11:00 20 03/13/17 10:00 20 03/13/17 10:00 92 29 96/57 97 Mechanical Ventilator 40 03/13/17 09:19 92 27 40 03/13/17 09:00 91 28 105/60 96 Mechanical Ventilator 40 03/13/17 09:00 20 03/13/17 08:49 91 108/58 03/13/17 08:00 87 03/13/17 08:00 20 03/13/17 08:00 97.6 92 29 93/48 96 Mechanical Ventilator 40 03/13/17 08:00 40 03/13/17 07:40 91 24 99 Mechanical Ventilator 40 03/13/17 07:29 91 23 100 Mechanical Ventilator 40 03/13/17 07:25 89 27 40 03/13/17 07:00 86 22 95/54 97 Mechanical Ventilator 40 03/13/17 07:00 20 03/13/17 06:00 87 20 97/57 99 Mechanical Ventilator 40 03/13/17 05:29 85 21 40 03/13/17 05:00 92 28 103/61 99 Mechanical Ventilator 40 03/13/17 04:00 97.7 87 22 99/57 99 Mechanical Ventilator 40 03/13/17 04:00 90 03/13/17 04:00 40 03/13/17 03:25 94 34 40 03/13/17 03:00 22 03/13/17 03:00 92 28 129/84 99 Mechanical Ventilator 40 03/13/17 02:00 22 03/13/17 02:00 95 35 116/88 95 Mechanical Ventilator 40 03/13/17 01:25 94 22 100 Mechanical Ventilator 40 03/13/17 01:15 92 17 40 03/13/17 01:15 92 17 100 Mechanical Ventilator 40 03/13/17 01:00 21 03/13/17 01:00 96 28 120/71 98 Mechanical Ventilator 40 03/13/17 00:00 99.5 94 28 120/74 98 Mechanical Ventilator 40 03/13/17 00:00 40 03/13/17 00:00 24 03/13/17 00:00 97 03/12/17 23:47 99 19 40 03/12/17 23:00 99.8 102 33 118/68 97 Mechanical Ventilator 40 03/12/17 23:00 24 03/12/17 22:04 100.9 03/12/17 22:00 20 03/12/17 22:00 102 21 112/63 99 Mechanical Ventilator 40 03/12/17 21:17 97 31 40 03/12/17 21:09 42 03/12/17 21:00 101.0 111 27 97/59 95 Mechanical Ventilator 40 03/12/17 20:00 98 03/12/17 20:00 40 03/12/17 20:00 100.9 98 42 169/101 95 Mechanical Ventilator 40 03/12/17 19:39 106 18 100 Mechanical Ventilator 40 03/12/17 19:30 100 16 100 Mechanical Ventilator 40 03/12/17 19:30 100 16 40 03/12/17 19:00 20 03/12/17 19:00 98 28 118/65 98 Mechanical Ventilator 40 03/12/17 18:00 20 03/12/17 18:00 98.8 99 29 110/59 99 Mechanical Ventilator 40 03/12/17 17:00 20 03/12/17 17:00 95 29 105/61 100 Mechanical Ventilator 40 03/12/17 16:38 102 44 40 03/12/17 16:00 40 03/12/17 16:00 99.1 96 26 109/57 100 Mechanical Ventilator 40 03/12/17 16:00 95 03/12/17 16:00 20 03/12/17 15:00 20 03/12/17 15:00 95 25 102/53 100 Mechanical Ventilator 40 03/12/17 14:42 95 29 40 03/12/17 14:00 20 03/12/17 14:00 97 29 109/72 99 Mechanical Ventilator 40 03/12/17 13:00 91 25 96/62 100 Mechanical Ventilator 40 03/12/17 13:00 20 03/12/17 12:46 93 41 99 Mechanical Ventilator 40 03/12/17 12:36 91 46 99 Mechanical Ventilator 40 03/12/17 12:33 95 46 40 Micro: Microbiology Date/Time Source Procedure Growth Status 03/11/17 11:15 Blood Blood Culture - Preliminary NO GROWTH AFTER 24 HOURS Resulted 03/11/17 10:00 Blood Blood Culture - Preliminary NO GROWTH AFTER 24 HOURS Resulted GIOVANNI YEUNG Mar 13, 2017 12:34
--- NOTE | 2017-03-13 19:33 | General Progress Note ---
Assessment/Plan Assessment/Plan Assessment/Plan #. Respiratory failure, currently on a vent. #. Leukocytosis 2/2 Sepsis. ID following, on abx #. UTI #. Thrombocytopenia has resolved #. Acute anemia. Hgb goal above 7. Transfuse as needed, work up has been reviewed #. COPD #. Hypokalemia. #. Hypernatremia. #.Continue DVT prophylaxis with heparin subcutaneous Subjective Hematologic/Lymphatic: Reports: anemia Allergies: Coded Allergies: No Known Allergies (Unverified , 10/20/16) All Systems: reviewed and negative except above Subjective NAD, patient is nonverbal Objective Last 24 Hour Vital Signs Date Time Temp Pulse Resp B/P (MAP) Pulse Ox O2 Delivery O2 Flow Rate FiO2 03/13/17 19:00 20 03/13/17 19:00 99 23 94/56 97 Mechanical Ventilator 40 03/13/17 18:00 20 03/13/17 18:00 98.4 98 28 104/59 95 Mechanical Ventilator 40 03/13/17 17:00 20 03/13/17 17:00 99 29 106/53 95 Mechanical Ventilator 40 03/13/17 16:42 95 23 40 03/13/17 16:00 98.9 93 29 104/53 96 Mechanical Ventilator 40 03/13/17 16:00 40 03/13/17 16:00 96 03/13/17 16:00 20 03/13/17 15:20 94 27 40 03/13/17 15:00 93 21 96/54 96 Mechanical Ventilator 40 03/13/17 15:00 20 03/13/17 14:00 98.1 92 22 98/57 95 Mechanical Ventilator 40 03/13/17 14:00 20 03/13/17 13:40 93 27 99 Mechanical Ventilator 40 03/13/17 13:02 91 28 96 Mechanical Ventilator 40 03/13/17 13:01 89 28 40 03/13/17 13:00 20 03/13/17 13:00 91 20 87/48 99 Mechanical Ventilator 40 03/13/17 12:00 20 03/13/17 12:00 88 03/13/17 12:00 40 03/13/17 12:00 98.2 89 29 99/56 96 Mechanical Ventilator 40 03/13/17 11:03 90 36 40 03/13/17 11:00 89 22 96/69 97 Mechanical Ventilator 40 03/13/17 11:00 20 03/13/17 10:00 20 03/13/17 10:00 92 29 96/57 97 Mechanical Ventilator 40 03/13/17 09:19 92 27 40 03/13/17 09:00 91 28 105/60 96 Mechanical Ventilator 40 03/13/17 09:00 20 03/13/17 08:49 91 108/58 03/13/17 08:00 87 03/13/17 08:00 20 03/13/17 08:00 97.6 92 29 93/48 96 Mechanical Ventilator 40 03/13/17 08:00 40 03/13/17 07:40 91 24 99 Mechanical Ventilator 40 03/13/17 07:29 91 23 100 Mechanical Ventilator 40 03/13/17 07:25 89 27 40 03/13/17 07:00 86 22 95/54 97 Mechanical Ventilator 40 03/13/17 07:00 20 03/13/17 06:00 87 20 97/57 99 Mechanical Ventilator 40 03/13/17 05:29 85 21 40 03/13/17 05:00 92 28 103/61 99 Mechanical Ventilator 40 03/13/17 04:00 97.7 87 22 99/57 99 Mechanical Ventilator 40 03/13/17 04:00 90 03/13/17 04:00 40 03/13/17 03:25 94 34 40 03/13/17 03:00 22 03/13/17 03:00 92 28 129/84 99 Mechanical Ventilator 40 03/13/17 02:00 22 03/13/17 02:00 95 35 116/88 95 Mechanical Ventilator 40 03/13/17 01:25 94 22 100 Mechanical Ventilator 40 03/13/17 01:15 92 17 40 03/13/17 01:15 92 17 100 Mechanical Ventilator 40 03/13/17 01:00 21 03/13/17 01:00 96 28 120/71 98 Mechanical Ventilator 40 03/13/17 00:00 99.5 94 28 120/74 98 Mechanical Ventilator 40 03/13/17 00:00 40 03/13/17 00:00 24 03/13/17 00:00 97 03/12/17 23:47 99 19 40 03/12/17 23:00 99.8 102 33 118/68 97 Mechanical Ventilator 40 03/12/17 23:00 24 03/12/17 22:04 100.9 03/12/17 22:00 20 03/12/17 22:00 102 21 112/63 99 Mechanical Ventilator 40 03/12/17 21:17 97 31 40 03/12/17 21:09 42 03/12/17 21:00 101.0 111 27 97/59 95 Mechanical Ventilator 40 03/12/17 20:00 98 03/12/17 20:00 40 03/12/17 20:00 100.9 98 42 169/101 95 Mechanical Ventilator 40 03/12/17 19:39 106 18 100 Mechanical Ventilator 40 Intake and Output 03/12/17 03/13/17 19:00 07:00 Intake Total 1266.000 ml 2928 ml Output Total 980 ml 855 ml Balance 286.000 ml 2073 ml Free Water 150 ml IV Total 566.000 ml 2578 ml Tube Feeding 550 ml 350 ml Output Urine Total 980 ml 855 ml # Bowel Movements 1 1 Laboratory Tests 03/12/17 21:45: Vancomycin Level Trough 12.2H 03/13/17 03:15: White Blood Count 14.4H, Red Blood Count 3.57L, Hemoglobin 10.4L, Hematocrit 33.4L, Mean Corpuscular Volume 94, Mean Corpuscular Hemoglobin 29.3, Mean Corpuscular Hemoglobin Concent 31.3L, Red Cell Distribution Width 12.9, Platelet Count 338, Mean Platelet Volume 7.0, Neutrophils (%) (Auto) 76.5H, Lymphocytes (%) (Auto) 14.1L, Monocytes (%) (Auto) 7.3, Eosinophils (%) (Auto) 1.7, Basophils (%) (Auto) 0.5, Sodium Level 146H, Potassium Level 3.5, Chloride Level 111H, Carbon Dioxide Level 28, Anion Gap 7, Blood Urea Nitrogen 12, Creatinine 0.9, Estimat Glomerular Filtration Rate > 60, Glucose Level 95, Calcium Level 7.4L, Magnesium Level 2.3 03/13/17 07:48: Arterial Blood pH 7.495H, Arterial Blood Partial Pressure CO2 38.6, Arterial Blood Partial Pressure O2 69.0L, Arterial Blood HCO3 29.1H, Arterial Blood Oxygen Saturation 94.1, Arterial Blood Base Excess 5.5, Ulises Test Positive Height (Feet): 5 Height (Inches): 9.00 Weight (Pounds): 162 General Appearance: no apparent distress EENT: normal ENT inspection Cardiovascular: normal peripheral pulses Respiratory/Chest: chest wall non-tender Neurologic: no motor/sensory deficits Skin: normal pigmentation Justin Anthony Mar 13, 2017 19:33
[2017-03-13] MEDS: fentaNYL Citrate 2,500 MCG in NS 200 ML IV SCH (23:00)
[2017-03-13] MEDS: Dyna-Hex 2% Top Sol 2oz TOPIC SCH (23:05)
[2017-03-13] MEDS: Miralax 17gm pkt ORAL SCH (23:06)
[2017-03-14] VITALS (27 sets, daily range): BP systolic 80–111; BP diastolic 49–81
[2017-03-14 04:49] LABS: BASOPHILS % (AUTO) 0.6 % (0.0-2.0); EOSINOPHILS % (AUTO) 3.7 % (0.0-3.0); HEMATOCRIT 32.9 % (42.0-52.0); HEMOGLOBIN 10.5 G/DL (14.2-18.0); LYMPHOCYTES % (AUTO) 19.7 % (20.0-45.0); MEAN CORPUSCULAR VOLUME 91 FL (80-99); PLATELET COUNT 380 K/UL (150-450); RED BLOOD COUNT 3.59 M/UL (4.70-6.10); RED CELL DISTRIBUTION WIDTH 13.1 % (11.6-14.8); WHITE BLOOD COUNT 9.8 K/UL (4.8-10.8)
[2017-03-14] MEDS: Metoclopramide 10mg/2ml Inj IVP SCH ×3 (06:08→21:37)
[2017-03-14] MEDS: Meropenem 1gm in NS 55ml IVPB SCH ×3 (06:09→22:27)
[2017-03-14 07:07] LABS: ALANINE AMINOTRANSFERASE 41 U/L (12-78); ALBUMIN 1.5 G/DL (3.4-5.0); ALBUMIN/GLOBULIN RATIO 0.3 (1.0-2.7); ALKALINE PHOSPHATASE 87 U/L (46-116); ANION GAP 6 mmol/L (5-15); ASPARTATE AMINO TRANSFERASE 59 U/L (15-37); BILIRUBIN,TOTAL 0.5 MG/DL (0.2-1.0); BLOOD UREA NITROGEN 15 mg/dL (7-18); CALCIUM 7.3 MG/DL (8.5-10.1); CARBON DIOXIDE 29 MMOL/L (21-32); CHLORIDE 112 MMOL/L (98-107); PHOSPHORUS 3.1 MG/DL (2.5-4.9); POTASSIUM 3.9 MMOL/L (3.5-5.1); SODIUM 147 MMOL/L (136-145)
[2017-03-14] MEDS: Docusate 100mg/10ml Liq GT SCH ×2 (08:49→17:50)
[2017-03-14] MEDS: Pantoprazole Inj IVP SCH ×2 (08:49→20:29)
[2017-03-14] MEDS: Aspirin Baby 81mg NG SCH (08:49)
[2017-03-14] MEDS: Heparin 5000 units/ml inj SUBQ SCH ×2 (08:51→20:32)
--- NOTE | 2017-03-14 09:40 | Critical Care Progress Note ---
Assessment/Plan Assessment/Plan Assessment/Plan: sepsis with shock (resolved shock) acute hypoxemic RF requiring intubation 03/04 bacteremia with Aerococcus PNA acute renal failure Hypernatremia COPD Alzheimer dementia severe protein calorie malnutrition moderate pulmonary HTN Hx of HTN thrombocytopenia dysphagia PLAN care noted IV antibiotics respiratory care Ventilatory support supportive care suction wean as able oxygen therapy prognosis guarded monitor cardiorenal parameters, volumes, avoid nephrotoxic meds DVT GI prophylaxis monitor counts,heme follows monitor LFT NGT feeding wound care pain management try to wean medications/laboratory data/nursing notes/ICU care reviewed in detail note reviewed and edited care discussed with RN and RT ICU time spent 35 minutes Critical Care - Subjective Interval Events: care noted vent noted findings reviewed ROS Limited/Unobtainable: Yes Condition: critical EKG Rhythm: Sinus Rhythm Residuals: minimal Tube Feeding Tolerated: yes I&O: Intake and Output 03/13/17 03/14/17 19:00 07:00 Intake Total 1166.000 ml 645 ml Output Total 565 ml 650 ml Balance 601.000 ml -5 ml Free Water 150 ml 10 ml IV Total 366.000 ml 305 ml Tube Feeding 650 ml 330 ml Output Urine Total 565 ml 650 ml # Bowel Movements 1 2 Critical Care - Objective ET-Tube: 7.5 ET Position: 25 Last 24 Hour Vital Signs Date Time Temp Pulse Resp B/P (MAP) Pulse Ox O2 Delivery O2 Flow Rate FiO2 03/14/17 09:30 85 20 40 03/14/17 09:00 86 20 95/55 96 Mechanical Ventilator 40 03/14/17 08:50 90 90/51 03/14/17 08:00 90 03/14/17 08:00 40 03/14/17 08:00 98.8 90 24 92/54 92 Mechanical Ventilator 40 03/14/17 07:00 96 40 106/57 96 Mechanical Ventilator 40 03/14/17 06:42 91 21 40 03/14/17 06:00 20 03/14/17 06:00 85 22 105/81 96 Mechanical Ventilator 40 03/14/17 05:22 87 21 40 03/14/17 05:00 20 03/14/17 05:00 98.8 89 20 102/60 95 Mechanical Ventilator 40 03/14/17 04:00 85 03/14/17 04:00 20 03/14/17 04:00 40 03/14/17 04:00 88 21 103/67 95 Mechanical Ventilator 40 03/14/17 03:16 83 25 40 03/14/17 03:00 83 26 110/67 94 Mechanical Ventilator 40 03/14/17 03:00 20 03/14/17 02:28 82 31 84/59 96 Mechanical Ventilator 40 03/14/17 02:00 20 93/59 96 Mechanical Ventilator 40 03/14/17 02:00 20 03/14/17 01:50 20 80/49 97 Mechanical Ventilator 40 03/14/17 01:45 20 81/54 98 Mechanical Ventilator 40 03/14/17 01:27 82 22 40 03/14/17 01:00 20 03/14/17 01:00 80 20 89/56 98 Mechanical Ventilator 40 03/14/17 00:00 87 03/14/17 00:00 98.2 88 32 95/56 99 Mechanical Ventilator 40 03/14/17 00:00 20 03/13/17 23:14 89 24 40 03/13/17 23:06 91 101/62 03/13/17 23:00 87 23 107/62 97 Mechanical Ventilator 40 03/13/17 23:00 20 03/13/17 23:00 20 03/13/17 22:00 98.8 92 21 100/58 96 Mechanical Ventilator 40 03/13/17 22:00 20 03/13/17 21:11 97 27 40 03/13/17 21:00 20 03/13/17 21:00 96 34 109/55 97 Mechanical Ventilator 40 03/13/17 20:00 95 03/13/17 20:00 20 03/13/17 20:00 40 03/13/17 20:00 99.6 95 31 102/61 96 Mechanical Ventilator 40 03/13/17 19:58 96 18 100 Mechanical Ventilator 40 03/13/17 19:48 95 27 40 03/13/17 19:48 95 27 99 Mechanical Ventilator 40 03/13/17 19:00 20 03/13/17 19:00 99 23 94/56 97 Mechanical Ventilator 40 03/13/17 18:00 20 03/13/17 18:00 98.4 98 28 104/59 95 Mechanical Ventilator 40 03/13/17 17:00 20 03/13/17 17:00 99 29 106/53 95 Mechanical Ventilator 40 03/13/17 16:42 95 23 40 03/13/17 16:00 98.9 93 29 104/53 96 Mechanical Ventilator 40 03/13/17 16:00 40 03/13/17 16:00 96 03/13/17 16:00 20 03/13/17 15:20 94 27 40 03/13/17 15:00 93 21 96/54 96 Mechanical Ventilator 40 03/13/17 15:00 20 03/13/17 14:00 98.1 92 22 98/57 95 Mechanical Ventilator 40 03/13/17 14:00 20 03/13/17 13:40 93 27 99 Mechanical Ventilator 40 03/13/17 13:02 91 28 96 Mechanical Ventilator 40 03/13/17 13:01 89 28 40 03/13/17 13:00 20 03/13/17 13:00 91 20 87/48 99 Mechanical Ventilator 40 03/13/17 12:00 20 03/13/17 12:00 88 03/13/17 12:00 40 03/13/17 12:00 98.2 89 29 99/56 96 Mechanical Ventilator 40 03/13/17 11:03 90 36 40 03/13/17 11:00 89 22 96/69 97 Mechanical Ventilator 40 03/13/17 11:00 20 03/13/17 10:00 20 03/13/17 10:00 92 29 96/57 97 Mechanical Ventilator 40 Labs: Labs Test 03/11/17 10:00 03/12/17 04:00 03/12/17 04:30 03/12/17 21:45 Urine Color Yellow Urine Appearance Slightly cloudy Urine pH 5 (4.5-8.0) Urine Specific [place] 1.015 (1.005-1.035) Urine Protein 2+ (NEGATIVE) Urine Glucose (UA) Negative (NEGATIVE) Urine Ketones Negative (NEGATIVE) Urine Occult Blood 3+ (NEGATIVE) Urine Nitrite Negative (NEGATIVE) Urine Bilirubin Negative (NEGATIVE) Urine Urobilinogen 8 MG/DL (0.0-1.0) Urine Leukocyte Esterase 1+ (NEGATIVE) Urine RBC 10-15 /HPF (0 - 0) Urine WBC 2-4 /HPF (0 - 0) Urine Squamous Epithelial Cells Occasional /LPF Urine Bacteria Few /HPF (NONE) Urine Mucus Few /LPF (NONE/OCC) Arterial Blood pH 7.490 (7.350-7.450) Arterial Blood Partial Pressure CO2 38.5 mmHg (35.0-45.0) Arterial Blood Partial Pressure O2 68.6 mmHg (75.0-100.0) Arterial Blood HCO3 29.2 mmol/L (22.0-26.0) Arterial Blood Oxygen Saturation 94.5 % (92.0-98.0) Arterial Blood Base Excess 5.7 Ulises Test Positive White Blood Count 14.7 K/UL (4.8-10.8) Red Blood Count 3.74 M/UL (4.70-6.10) Hemoglobin 11.2 G/DL (14.2-18.0) Hematocrit 34.8 % (42.0-52.0) Mean Corpuscular Volume 93 FL (80-99) Mean Corpuscular Hemoglobin 29.9 PG (27.0-31.0) Mean Corpuscular Hemoglobin Concent 32.2 G/DL (32.0-36.0) Red Cell Distribution Width 13.3 % (11.6-14.8) Platelet Count 367 K/UL (150-450) Mean Platelet Volume 7.0 FL (6.5-10.1) Neutrophils (%) (Auto) 72.0 % (45.0-75.0) Lymphocytes (%) (Auto) 17.7 % (20.0-45.0) Monocytes (%) (Auto) 7.7 % (1.0-10.0) Eosinophils (%) (Auto) 2.4 % (0.0-3.0) Basophils (%) (Auto) 0.3 % (0.0-2.0) Sodium Level 144 MMOL/L (136-145) Potassium Level 3.2 MMOL/L (3.5-5.1) Chloride Level 109 MMOL/L (98-107) Carbon Dioxide Level 28 MMOL/L (21-32) Anion Gap 7 mmol/L (5-15) Blood Urea Nitrogen 13 mg/dL (7-18) Creatinine 1.0 MG/DL (0.55-1.30) Estimat Glomerular Filtration Rate > 60 mL/min (>60) Glucose Level 121 MG/DL (74-106) Calcium Level 7.3 MG/DL (8.5-10.1) Vancomycin Level Trough 12.2 ug/mL (5.0-12.0) Test 03/13/17 03:15 03/13/17 07:48 03/14/17 04:15 White Blood Count 14.4 K/UL (4.8-10.8) 9.8 K/UL (4.8-10.8) Red Blood Count 3.57 M/UL (4.70-6.10) 3.59 M/UL (4.70-6.10) Hemoglobin 10.4 G/DL (14.2-18.0) 10.5 G/DL (14.2-18.0) Hematocrit 33.4 % (42.0-52.0) 32.9 % (42.0-52.0) Mean Corpuscular Volume 94 FL (80-99) 91 FL (80-99) Mean Corpuscular Hemoglobin 29.3 PG (27.0-31.0) 29.2 PG (27.0-31.0) Mean Corpuscular Hemoglobin Concent 31.3 G/DL (32.0-36.0) 31.9 G/DL (32.0-36.0) Red Cell Distribution Width 12.9 % (11.6-14.8) 13.1 % (11.6-14.8) Platelet Count 338 K/UL (150-450) 380 K/UL (150-450) Mean Platelet Volume 7.0 FL (6.5-10.1) 6.7 FL (6.5-10.1) Neutrophils (%) (Auto) 76.5 % (45.0-75.0) 68.0 % (45.0-75.0) Lymphocytes (%) (Auto) 14.1 % (20.0-45.0) 19.7 % (20.0-45.0) Monocytes (%) (Auto) 7.3 % (1.0-10.0) 8.0 % (1.0-10.0) Eosinophils (%) (Auto) 1.7 % (0.0-3.0) 3.7 % (0.0-3.0) Basophils (%) (Auto) 0.5 % (0.0-2.0) 0.6 % (0.0-2.0) Sodium Level 146 MMOL/L (136-145) 147 MMOL/L (136-145) Potassium Level 3.5 MMOL/L (3.5-5.1) 3.9 MMOL/L (3.5-5.1) Chloride Level 111 MMOL/L (98-107) 112 MMOL/L (98-107) Carbon Dioxide Level 28 MMOL/L (21-32) 29 MMOL/L (21-32) Anion Gap 7 mmol/L (5-15) 6 mmol/L (5-15) Blood Urea Nitrogen 12 mg/dL (7-18) 15 mg/dL (7-18) Creatinine 0.9 MG/DL (0.55-1.30) 1.0 MG/DL (0.55-1.30) Estimat Glomerular Filtration Rate > 60 mL/min (>60) > 60 mL/min (>60) Glucose Level 95 MG/DL (74-106) 93 MG/DL (74-106) Calcium Level 7.4 MG/DL (8.5-10.1) 7.3 MG/DL (8.5-10.1) Magnesium Level 2.3 MG/DL (1.8-2.4) 2.3 MG/DL (1.8-2.4) Arterial Blood pH 7.495 (7.350-7.450) Arterial Blood Partial Pressure CO2 38.6 mmHg (35.0-45.0) Arterial Blood Partial Pressure O2 69.0 mmHg (75.0-100.0) Arterial Blood HCO3 29.1 mmol/L (22.0-26.0) Arterial Blood Oxygen Saturation 94.1 % (92.0-98.0) Arterial Blood Base Excess 5.5 Ulises Test Positive Phosphorus Level 3.1 MG/DL (2.5-4.9) Total Bilirubin 0.5 MG/DL (0.2-1.0) Aspartate Amino Transf (AST/SGOT) 59 U/L (15-37) Alanine Aminotransferase (ALT/SGPT) 41 U/L (12-78) Alkaline Phosphatase 87 U/L (46-116) C-Reactive Protein, Quantitative 8.0 mg/dL (0.00-0.90) Pro-B-Type Natriuretic Peptide 562 pg/mL (0-125) Total Protein 6.0 G/DL (6.4-8.2) Albumin 1.5 G/DL (3.4-5.0) Globulin 4.5 g/dL Albumin/Globulin Ratio 0.3 (1.0-2.7) Objective: Status: sedated, on Vent with poor LOC Condition: critical HEENT: atraumatic, normocephalic, - ETT and NGT in place Lungs: decreased BS on the right with some scattered rhonchi but no wheeze Heart: RRR without MRG Abdomen: soft, non-tender, active bowel sounds; NO HSM Extremities: no C/C/E Neuro: poor LOC reviewed and edited Micro: Microbiology Date/Time Source Procedure Growth Status 03/12/17 21:30 Blood Blood Culture - Preliminary NO GROWTH AFTER 24 HOURS Resulted 03/11/17 11:15 Blood Blood Culture - Preliminary NO GROWTH AFTER 48 HOURS Resulted 03/11/17 10:00 Blood Blood Culture - Preliminary NO GROWTH AFTER 48 HOURS Resulted 03/13/17 09:00 Sputum Gram Stain Pending Resulted 03/13/17 09:00 Sputum Sputum Culture - Preliminary Resulted GIOVANNI YEUNG Mar 14, 2017 09:40
[2017-03-14] MEDS: fentaNYL Citrate 2,500 MCG in NS 200 ML IV SCH (10:28)
--- NOTE | 2017-03-14 11:54 | Nephrology Progress Note ---
Assessment/Plan Problem List: (1) Respiratory disorder with ventilator dependence (2) UTI (urinary tract infection) (3) Hypernatremia (4) Acute renal failure Assessment - Na 148 - Acute renal failure cr 1.1 to 2.4 to 2.1 to 1.9 to 1.5 WNL - Chronic paranoid schizophrenia - Respiratory disorder with ventilator dependence - Healthcare associated bacterial pneumonia - UTI (urinary tract infection) - SIRS (systemic inflammatory response syndrome) - Alzheimer disease - Hypokalemia - Hypernatremia / due to water deficit improving with D5 resolving Plan plan: D5w K supplement Water NGT Pulm support Antibiotics monitor renal parameters K Phos as needed per orders Subjective ROS Limited/Unobtainable: Yes Objective Objective Last 24 Hour Vital Signs Date Time Temp Pulse Resp B/P (MAP) Pulse Ox O2 Delivery O2 Flow Rate FiO2 03/14/17 11:00 85 25 96/55 95 Mechanical Ventilator 40 03/14/17 10:48 86 24 35 03/14/17 10:28 29 03/14/17 10:00 79 18 84/51 96 Mechanical Ventilator 40 03/14/17 09:30 85 20 40 03/14/17 09:00 86 20 95/55 96 Mechanical Ventilator 40 03/14/17 08:50 90 90/51 03/14/17 08:00 90 03/14/17 08:00 40 03/14/17 08:00 98.8 90 24 92/54 92 Mechanical Ventilator 40 03/14/17 07:00 96 40 106/57 96 Mechanical Ventilator 40 03/14/17 06:42 91 21 40 03/14/17 06:00 20 03/14/17 06:00 85 22 105/81 96 Mechanical Ventilator 40 03/14/17 05:22 87 21 40 03/14/17 05:00 20 03/14/17 05:00 98.8 89 20 102/60 95 Mechanical Ventilator 40 03/14/17 04:00 85 03/14/17 04:00 20 03/14/17 04:00 40 03/14/17 04:00 88 21 103/67 95 Mechanical Ventilator 40 03/14/17 03:16 83 25 40 03/14/17 03:00 83 26 110/67 94 Mechanical Ventilator 40 03/14/17 03:00 20 03/14/17 02:28 82 31 84/59 96 Mechanical Ventilator 40 03/14/17 02:00 20 93/59 96 Mechanical Ventilator 40 03/14/17 02:00 20 03/14/17 01:50 20 80/49 97 Mechanical Ventilator 40 03/14/17 01:45 20 81/54 98 Mechanical Ventilator 40 03/14/17 01:27 82 22 40 03/14/17 01:00 20 03/14/17 01:00 80 20 89/56 98 Mechanical Ventilator 40 03/14/17 00:00 87 03/14/17 00:00 98.2 88 32 95/56 99 Mechanical Ventilator 40 03/14/17 00:00 20 03/13/17 23:14 89 24 40 03/13/17 23:06 91 101/62 03/13/17 23:00 87 23 107/62 97 Mechanical Ventilator 40 03/13/17 23:00 20 03/13/17 23:00 20 03/13/17 22:00 98.8 92 21 100/58 96 Mechanical Ventilator 40 03/13/17 22:00 20 03/13/17 21:11 97 27 40 03/13/17 21:00 20 03/13/17 21:00 96 34 109/55 97 Mechanical Ventilator 40 03/13/17 20:00 95 03/13/17 20:00 20 03/13/17 20:00 40 03/13/17 20:00 99.6 95 31 102/61 96 Mechanical Ventilator 40 03/13/17 19:58 96 18 100 Mechanical Ventilator 40 03/13/17 19:48 95 27 40 03/13/17 19:48 95 27 99 Mechanical Ventilator 40 03/13/17 19:00 20 03/13/17 19:00 99 23 94/56 97 Mechanical Ventilator 40 03/13/17 18:00 20 03/13/17 18:00 98.4 98 28 104/59 95 Mechanical Ventilator 40 03/13/17 17:00 20 03/13/17 17:00 99 29 106/53 95 Mechanical Ventilator 40 03/13/17 16:42 95 23 40 03/13/17 16:00 98.9 93 29 104/53 96 Mechanical Ventilator 40 03/13/17 16:00 40 03/13/17 16:00 96 03/13/17 16:00 20 03/13/17 15:20 94 27 40 12/30/17 15:00 93 21 96/54 96 Mechanical Ventilator 40 03/13/17 15:00 20 03/13/17 14:00 98.1 92 22 98/57 95 Mechanical Ventilator 40 03/13/17 14:00 20 03/13/17 13:40 93 27 99 Mechanical Ventilator 40 03/13/17 13:02 91 28 96 Mechanical Ventilator 40 03/13/17 13:01 89 28 40 03/13/17 13:00 20 03/13/17 13:00 91 20 87/48 99 Mechanical Ventilator 40 03/13/17 12:00 20 03/13/17 12:00 88 03/13/17 12:00 40 03/13/17 12:00 98.2 89 29 99/56 96 Mechanical Ventilator 40 Intake and Output 03/13/17 03/14/17 19:00 07:00 Intake Total 1166.000 ml 645 ml Output Total 565 ml 650 ml Balance 601.000 ml -5 ml Free Water 150 ml 10 ml IV Total 366.000 ml 305 ml Tube Feeding 650 ml 330 ml Output Urine Total 565 ml 650 ml # Bowel Movements 1 2 Laboratory Tests 03/14/17 04:15: White Blood Count 9.8, Red Blood Count 3.59L, Hemoglobin 10.5L, Hematocrit 32.9L , Mean Corpuscular Volume 91, Mean Corpuscular Hemoglobin 29.2, Mean Corpuscular Hemoglobin Concent 31.9L, Red Cell Distribution Width 13.1, Platelet Count 380, Mean Platelet Volume 6.7, Neutrophils (%) (Auto) 68.0, Lymphocytes (%) (Auto) 19.7L, Monocytes (%) (Auto) 8.0, Eosinophils (%) (Auto) 3.7H, Basophils (%) (Auto) 0.6, Sodium Level 147H, Potassium Level 3.9, Chloride Level 112H, Carbon Dioxide Level 29, Anion Gap 6, Blood Urea Nitrogen 15, Creatinine 1.0, Estimat Glomerular Filtration Rate > 60, Glucose Level 93, Calcium Level 7.3L, Phosphorus Level 3.1, Magnesium Level 2.3, Total Bilirubin 0.5, Aspartate Amino Transf (AST/SGOT) 59H, Alanine Aminotransferase (ALT/SGPT) 41, Alkaline Phosphatase 87, C-Reactive Protein, Quantitative 8.0H, Pro-B-Type Natriuretic Peptide 562H, Total Protein 6.0L, Albumin 1.5L, Globulin 4.5, Albumin/Globulin Ratio 0.3L 03/14/17 10:30: Vancomycin Level Trough 21.6H Height (Feet): 5 Height (Inches): 9.00 Weight (Pounds): 162 General Appearance: other - remains intubated Cardiovascular: normal rate Respiratory/Chest: decreased breath sounds Abdomen: soft Objective no change CHACHA NUNES Mar 14, 2017 11:54
--- NOTE | 2017-03-14 18:46 | General Progress Note ---
Assessment/Plan Assessment/Plan Assessment/Plan #. Respiratory failure, currently on a vent. #. Leukocytosis 2/2 Sepsis. ID following, on abx #. UTI #. Thrombocytopenia has resolved #. Acute anemia. Hgb goal above 7. Transfuse as needed, work up has been reviewed #. COPD #. Hypokalemia. #. Hypernatremia. #.Continue DVT prophylaxis with heparin subcutaneous Subjective Allergies: Coded Allergies: No Known Allergies (Unverified , 10/20/16) All Systems: reviewed and negative except above Subjective nad Objective Last 24 Hour Vital Signs Date Time Temp Pulse Resp B/P (MAP) Pulse Ox O2 Delivery O2 Flow Rate FiO2 03/14/17 18:00 87 23 96/63 95 Mechanical Ventilator 40 03/14/17 18:00 22 03/14/17 17:19 87 24 35 03/14/17 17:00 94 23 107/70 95 Mechanical Ventilator 40 03/14/17 17:00 23 03/14/17 16:00 85 03/14/17 16:00 98.7 85 21 94/57 95 Mechanical Ventilator 40 03/14/17 16:00 24 03/14/17 16:00 40 03/14/17 15:20 84 21 35 03/14/17 15:00 85 21 99/57 95 Mechanical Ventilator 40 03/14/17 15:00 22 03/14/17 14:00 85 26 111/59 95 Mechanical Ventilator 40 03/14/17 14:00 23 03/14/17 13:00 82 21 102/58 94 Mechanical Ventilator 40 03/14/17 13:00 23 03/14/17 12:31 81 19 35 03/14/17 12:00 81 03/14/17 12:00 97.8 84 24 102/66 95 Mechanical Ventilator 40 03/14/17 12:00 40 03/14/17 12:00 24 03/14/17 11:00 85 25 96/55 95 Mechanical Ventilator 40 03/14/17 11:00 23 03/14/17 10:48 86 24 35 03/14/17 10:28 29 03/14/17 10:00 79 18 84/51 96 Mechanical Ventilator 40 03/14/17 09:30 85 20 40 03/14/17 09:00 86 20 95/55 96 Mechanical Ventilator 40 03/14/17 08:50 90 90/51 03/14/17 08:00 90 03/14/17 08:00 40 03/14/17 08:00 98.8 90 24 92/54 92 Mechanical Ventilator 40 03/14/17 07:00 96 40 106/57 96 Mechanical Ventilator 40 03/14/17 06:42 91 21 40 03/14/17 06:00 20 03/14/17 06:00 85 22 105/81 96 Mechanical Ventilator 40 03/14/17 05:22 87 21 40 03/14/17 05:00 20 03/14/17 05:00 98.8 89 20 102/60 95 Mechanical Ventilator 40 03/14/17 04:00 85 03/14/17 04:00 20 03/14/17 04:00 40 03/14/17 04:00 88 21 103/67 95 Mechanical Ventilator 40 03/14/17 03:16 83 25 40 03/14/17 03:00 83 26 110/67 94 Mechanical Ventilator 40 03/14/17 03:00 20 03/14/17 02:28 82 31 84/59 96 Mechanical Ventilator 40 03/14/17 02:00 20 93/59 96 Mechanical Ventilator 40 03/14/17 02:00 20 03/14/17 01:50 20 80/49 97 Mechanical Ventilator 40 03/14/17 01:45 20 81/54 98 Mechanical Ventilator 40 03/14/17 01:27 82 22 40 03/14/17 01:00 20 03/14/17 01:00 80 20 89/56 98 Mechanical Ventilator 40 03/14/17 00:00 87 03/14/17 00:00 98.2 88 32 95/56 99 Mechanical Ventilator 40 03/14/17 00:00 20 03/13/17 23:14 89 24 40 03/13/17 23:06 91 101/62 03/13/17 23:00 87 23 107/62 97 Mechanical Ventilator 40 03/13/17 23:00 20 03/13/17 23:00 20 03/13/17 22:00 98.8 92 21 100/58 96 Mechanical Ventilator 40 03/13/17 22:00 20 03/13/17 21:11 97 27 40 03/13/17 21:00 20 03/13/17 21:00 96 34 109/55 97 Mechanical Ventilator 40 03/13/17 20:00 95 03/13/17 20:00 20 03/13/17 20:00 40 03/13/17 20:00 99.6 95 31 102/61 96 Mechanical Ventilator 40 03/13/17 19:58 96 18 100 Mechanical Ventilator 40 03/13/17 19:48 95 27 40 03/13/17 19:48 95 27 99 Mechanical Ventilator 40 03/13/17 19:00 20 03/13/17 19:00 99 23 94/56 97 Mechanical Ventilator 40 Intake and Output 03/13/17 03/14/17 19:00 07:00 Intake Total 1166.000 ml 645 ml Output Total 565 ml 650 ml Balance 601.000 ml -5 ml Free Water 150 ml 10 ml IV Total 366.000 ml 305 ml Tube Feeding 650 ml 330 ml Output Urine Total 565 ml 650 ml # Bowel Movements 1 2 Laboratory Tests 03/14/17 04:15: White Blood Count 9.8, Red Blood Count 3.59L, Hemoglobin 10.5L, Hematocrit 32.9L , Mean Corpuscular Volume 91, Mean Corpuscular Hemoglobin 29.2, Mean Corpuscular Hemoglobin Concent 31.9L, Red Cell Distribution Width 13.1, Platelet Count 380, Mean Platelet Volume 6.7, Neutrophils (%) (Auto) 68.0, Lymphocytes (%) (Auto) 19.7L, Monocytes (%) (Auto) 8.0, Eosinophils (%) (Auto) 3.7H, Basophils (%) (Auto) 0.6, Sodium Level 147H, Potassium Level 3.9, Chloride Level 112H, Carbon Dioxide Level 29, Anion Gap 6, Blood Urea Nitrogen 15, Creatinine 1.0, Estimat Glomerular Filtration Rate > 60, Glucose Level 93, Calcium Level 7.3L, Phosphorus Level 3.1, Magnesium Level 2.3, Total Bilirubin 0.5, Aspartate Amino Transf (AST/SGOT) 59H, Alanine Aminotransferase (ALT/SGPT) 41, Alkaline Phosphatase 87, C-Reactive Protein, Quantitative 8.0H, Pro-B-Type Natriuretic Peptide 562H, Total Protein 6.0L, Albumin 1.5L, Globulin 4.5, Albumin/Globulin Ratio 0.3L 03/14/17 10:30: Vancomycin Level Trough 21.6H Height (Feet): 5 Height (Inches): 9.00 Weight (Pounds): 162 General Appearance: WD/WN, no apparent distress EENT: normal ENT inspection Neck: normal alignment Extremities: normal range of motion 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
[2017-03-14] MEDS: Miralax 17gm pkt ORAL SCH (20:21)
[2017-03-14] MEDS: Dyna-Hex 2% Top Sol 2oz TOPIC SCH (20:29)
[2017-03-14] MEDS ORDERED: NS 275ml ONE (22:45)
[2017-03-14] MEDS ORDERED: Tubing IV Secondary IV ONE (22:45)
[2017-03-14] MEDS ORDERED: NS 500ML ONE (22:45)
[2017-03-15] VITALS (24 sets, daily range): BP systolic 90–135; BP diastolic 48–104
[2017-03-15] MEDS ORDERED: Vancomycin 750mg/NS 250ml IVPB SCH (02:00)
[2017-03-15 05:40] LABS: BASOPHILS % (AUTO) 0.6 % (0.0-2.0); EOSINOPHILS % (AUTO) 3.6 % (0.0-3.0); HEMATOCRIT 32.6 % (42.0-52.0); HEMOGLOBIN 10.3 G/DL (14.2-18.0); LYMPHOCYTES % (AUTO) 18.8 % (20.0-45.0); MEAN CORPUSCULAR VOLUME 91 FL (80-99); MONOCYTES % (AUTO) 8.1 % (1.0-10.0); PLATELET COUNT 458 K/UL (150-450); RED BLOOD COUNT 3.57 M/UL (4.70-6.10); RED CELL DISTRIBUTION WIDTH 12.9 % (11.6-14.8); WHITE BLOOD COUNT 10.2 K/UL (4.8-10.8)
[2017-03-15] MEDS: Metoclopramide 10mg/2ml Inj IVP SCH ×3 (05:47→21:45)
[2017-03-15] MEDS: Meropenem 1gm in NS 55ml IVPB SCH ×3 (05:48→21:45)
[2017-03-15 06:46] LABS: ALANINE AMINOTRANSFERASE 41 U/L (12-78); ALBUMIN 1.5 G/DL (3.4-5.0); ALBUMIN/GLOBULIN RATIO 0.3 (1.0-2.7); ALKALINE PHOSPHATASE 91 U/L (46-116); ANION GAP 7 mmol/L (5-15); ASPARTATE AMINO TRANSFERASE 55 U/L (15-37); BILIRUBIN,TOTAL 0.5 MG/DL (0.2-1.0); BLOOD UREA NITROGEN 13 mg/dL (7-18); CARBON DIOXIDE 27 MMOL/L (21-32); CHLORIDE 111 MMOL/L (98-107); POTASSIUM 3.6 MMOL/L (3.5-5.1); SODIUM 145 MMOL/L (136-145)
[2017-03-15] MEDS: Aspirin Baby 81mg NG SCH (08:50)
[2017-03-15] MEDS: Docusate 100mg/10ml Liq GT SCH ×2 (08:50→17:48)
[2017-03-15] MEDS: Pantoprazole Inj IVP SCH ×2 (08:51→21:04)
[2017-03-15] MEDS: Heparin 5000 units/ml inj SUBQ SCH ×2 (08:53→21:02)
--- NOTE | 2017-03-15 09:09 | Critical Care Progress Note ---
Assessment/Plan Assessment/Plan Assessment/Plan: sepsis with shock (resolved shock) acute hypoxemic RF requiring intubation 03/04 bacteremia with Aerococcus PNA acute renal failure Hypernatremia COPD Alzheimer dementia severe protein calorie malnutrition moderate pulmonary HTN Hx of HTN thrombocytopenia dysphagia PLAN care noted IV antibiotics noted respiratory care Ventilatory support as is- not ready for wean supportive care suction oxygen therapy prognosis guarded monitor cardiorenal parameters, volumes, avoid nephrotoxic meds DVT GI prophylaxis monitor counts,heme follows monitor LFT NGT feeding wound care pain management CT body ordered; will follow up on results medications/laboratory data/nursing notes/ICU care reviewed in detail note reviewed and edited care discussed with RN and RT ICU time spent 37 minutes Critical Care - Subjective Interval Events: CT body ordered on the ventilator poor LOC ICU care reviewed ROS Limited/Unobtainable: Yes Condition: critical EKG Rhythm: Sinus Rhythm Residuals: minimal Tube Feeding Tolerated: yes I&O: Intake and Output 03/14/17 03/15/17 19:00 07:00 Intake Total 80.4 ml 1029.2 ml Output Total 815 ml 1165 ml Balance -734.6 ml -135.8 ml IV Total 80.4 ml 329.2 ml Tube Feeding 700 ml Output Urine Total 815 ml 1165 ml # Bowel Movements 3 3 Critical Care - Objective ET-Tube: 7.5 ET Position: 25 Last 24 Hour Vital Signs Date Time Temp Pulse Resp B/P (MAP) Pulse Ox O2 Delivery O2 Flow Rate FiO2 03/15/17 08:51 90 100/58 03/15/17 08:00 98.8 91 31 100/57 98 Mechanical Ventilator 40 03/15/17 08:00 91 03/15/17 08:00 35 03/15/17 07:29 92 30 35 03/15/17 07:00 89 27 103/57 98 Mechanical Ventilator 40 03/15/17 06:00 24 03/15/17 06:00 88 24 115/63 98 Mechanical Ventilator 40 03/15/17 05:34 92 30 35 03/15/17 05:00 89 21 99/56 94 Mechanical Ventilator 40 03/15/17 05:00 21 03/15/17 04:00 98.0 90 24 98/60 94 Mechanical Ventilator 40 03/15/17 04:00 35 03/15/17 04:00 24 03/15/17 04:00 90 03/15/17 03:19 90 17 35 03/15/17 03:00 88 20 94/54 94 Mechanical Ventilator 40 03/15/17 03:00 20 03/15/17 02:00 26 03/15/17 02:00 90 26 91/48 95 Mechanical Ventilator 40 03/15/17 01:26 88 21 35 03/15/17 01:00 89 24 102/54 95 Mechanical Ventilator 40 03/15/17 01:00 24 03/15/17 00:00 88 03/15/17 00:00 35 03/15/17 00:00 98.5 88 21 96/53 95 Mechanical Ventilator 40 03/15/17 00:00 21 03/14/17 23:18 89 25 40 03/14/17 23:00 21 03/14/17 23:00 89 21 96/64 95 Mechanical Ventilator 40 03/14/17 22:00 87 23 90/54 94 Mechanical Ventilator 40 03/14/17 22:00 22 03/14/17 21:14 88 21 35 03/14/17 21:11 88 21 Mechanical Ventilator 35 03/14/17 21:00 89 22 98/56 95 Mechanical Ventilator 40 03/14/17 21:00 22 03/14/17 20:30 88 96/60 03/14/17 20:00 86 03/14/17 20:00 98.8 88 16 96/60 95 Mechanical Ventilator 40 03/14/17 20:00 22 03/14/17 20:00 40 03/14/17 19:25 86 22 35 03/14/17 19:00 23 03/14/17 19:00 88 23 95/62 95 Mechanical Ventilator 40 03/14/17 18:00 87 23 96/63 95 Mechanical Ventilator 40 03/14/17 18:00 22 03/14/17 17:19 87 24 35 03/14/17 17:00 94 23 107/70 95 Mechanical Ventilator 40 03/14/17 17:00 23 03/14/17 16:00 85 03/14/17 16:00 98.7 85 21 94/57 95 Mechanical Ventilator 40 03/14/17 16:00 24 03/14/17 16:00 40 03/14/17 15:20 84 21 35 03/14/17 15:00 85 21 99/57 95 Mechanical Ventilator 40 03/14/17 15:00 22 03/14/17 14:00 85 26 111/59 95 Mechanical Ventilator 40 03/14/17 14:00 23 03/14/17 13:00 82 21 102/58 94 Mechanical Ventilator 40 03/14/17 13:00 23 03/14/17 12:31 81 19 35 03/14/17 12:00 81 03/14/17 12:00 97.8 84 24 102/66 95 Mechanical Ventilator 40 03/14/17 12:00 40 03/14/17 12:00 24 03/14/17 11:00 85 25 96/55 95 Mechanical Ventilator 40 03/14/17 11:00 23 03/14/17 10:48 86 24 35 03/14/17 10:28 29 03/14/17 10:00 79 18 84/51 96 Mechanical Ventilator 40 03/14/17 09:30 85 20 40 Labs: Labs Test 03/12/17 21:45 03/13/17 03:15 03/13/17 07:48 03/14/17 04:15 Vancomycin Level Trough 12.2 ug/mL (5.0-12.0) White Blood Count 14.4 K/UL (4.8-10.8) 9.8 K/UL (4.8-10.8) Red Blood Count 3.57 M/UL (4.70-6.10) 3.59 M/UL (4.70-6.10) Hemoglobin 10.4 G/DL (14.2-18.0) 10.5 G/DL (14.2-18.0) Hematocrit 33.4 % (42.0-52.0) 32.9 % (42.0-52.0) Mean Corpuscular Volume 94 FL (80-99) 91 FL (80-99) Mean Corpuscular Hemoglobin 29.3 PG (27.0-31.0) 29.2 PG (27.0-31.0) Mean Corpuscular Hemoglobin Concent 31.3 G/DL (32.0-36.0) 31.9 G/DL (32.0-36.0) Red Cell Distribution Width 12.9 % (11.6-14.8) 13.1 % (11.6-14.8) Platelet Count 338 K/UL (150-450) 380 K/UL (150-450) Mean Platelet Volume 7.0 FL (6.5-10.1) 6.7 FL (6.5-10.1) Neutrophils (%) (Auto) 76.5 % (45.0-75.0) 68.0 % (45.0-75.0) Lymphocytes (%) (Auto) 14.1 % (20.0-45.0) 19.7 % (20.0-45.0) Monocytes (%) (Auto) 7.3 % (1.0-10.0) 8.0 % (1.0-10.0) Eosinophils (%) (Auto) 1.7 % (0.0-3.0) 3.7 % (0.0-3.0) Basophils (%) (Auto) 0.5 % (0.0-2.0) 0.6 % (0.0-2.0) Sodium Level 146 MMOL/L (136-145) 147 MMOL/L (136-145) Potassium Level 3.5 MMOL/L (3.5-5.1) 3.9 MMOL/L (3.5-5.1) Chloride Level 111 MMOL/L (98-107) 112 MMOL/L (98-107) Carbon Dioxide Level 28 MMOL/L (21-32) 29 MMOL/L (21-32) Anion Gap 7 mmol/L (5-15) 6 mmol/L (5-15) Blood Urea Nitrogen 12 mg/dL (7-18) 15 mg/dL (7-18) Creatinine 0.9 MG/DL (0.55-1.30) 1.0 MG/DL (0.55-1.30) Estimat Glomerular Filtration Rate > 60 mL/min (>60) > 60 mL/min (>60) Glucose Level 95 MG/DL (74-106) 93 MG/DL (74-106) Calcium Level 7.4 MG/DL (8.5-10.1) 7.3 MG/DL (8.5-10.1) Magnesium Level 2.3 MG/DL (1.8-2.4) 2.3 MG/DL (1.8-2.4) Arterial Blood pH 7.495 (7.350-7.450) Arterial Blood Partial Pressure CO2 38.6 mmHg (35.0-45.0) Arterial Blood Partial Pressure O2 69.0 mmHg (75.0-100.0) Arterial Blood HCO3 29.1 mmol/L (22.0-26.0) Arterial Blood Oxygen Saturation 94.1 % (92.0-98.0) Arterial Blood Base Excess 5.5 Ulises Test Positive Phosphorus Level 3.1 MG/DL (2.5-4.9) Total Bilirubin 0.5 MG/DL (0.2-1.0) Aspartate Amino Transf (AST/SGOT) 59 U/L (15-37) Alanine Aminotransferase (ALT/SGPT) 41 U/L (12-78) Alkaline Phosphatase 87 U/L (46-116) C-Reactive Protein, Quantitative 8.0 mg/dL (0.00-0.90) Pro-B-Type Natriuretic Peptide 562 pg/mL (0-125) Total Protein 6.0 G/DL (6.4-8.2) Albumin 1.5 G/DL (3.4-5.0) Globulin 4.5 g/dL Albumin/Globulin Ratio 0.3 (1.0-2.7) Test 03/14/17 10:30 03/15/17 04:00 Vancomycin Level Trough 21.6 ug/mL (5.0-12.0) White Blood Count 10.2 K/UL (4.8-10.8) Red Blood Count 3.57 M/UL (4.70-6.10) Hemoglobin 10.3 G/DL (14.2-18.0) Hematocrit 32.6 % (42.0-52.0) Mean Corpuscular Volume 91 FL (80-99) Mean Corpuscular Hemoglobin 28.7 PG (27.0-31.0) Mean Corpuscular Hemoglobin Concent 31.5 G/DL (32.0-36.0) Red Cell Distribution Width 12.9 % (11.6-14.8) Platelet Count 458 K/UL (150-450) Mean Platelet Volume 6.2 FL (6.5-10.1) Neutrophils (%) (Auto) 69.0 % (45.0-75.0) Lymphocytes (%) (Auto) 18.8 % (20.0-45.0) Monocytes (%) (Auto) 8.1 % (1.0-10.0) Eosinophils (%) (Auto) 3.6 % (0.0-3.0) Basophils (%) (Auto) 0.6 % (0.0-2.0) Sodium Level 145 MMOL/L (136-145) Potassium Level 3.6 MMOL/L (3.5-5.1) Chloride Level 111 MMOL/L (98-107) Carbon Dioxide Level 27 MMOL/L (21-32) Anion Gap 7 mmol/L (5-15) Blood Urea Nitrogen 13 mg/dL (7-18) Creatinine 1.0 MG/DL (0.55-1.30) Estimat Glomerular Filtration Rate > 60 mL/min (>60) Glucose Level 96 MG/DL (74-106) Calcium Level 7.0 MG/DL (8.5-10.1) Total Bilirubin 0.5 MG/DL (0.2-1.0) Aspartate Amino Transf (AST/SGOT) 55 U/L (15-37) Alanine Aminotransferase (ALT/SGPT) 41 U/L (12-78) Alkaline Phosphatase 91 U/L (46-116) Total Protein 6.0 G/DL (6.4-8.2) Albumin 1.5 G/DL (3.4-5.0) Globulin 4.5 g/dL Albumin/Globulin Ratio 0.3 (1.0-2.7) Objective: Status: sedated, on Vent with poor LOC Condition: critical HEENT: atraumatic, normocephalic, - ETT and NGT in place Lungs: decreased BS on the right with some scattered rhonchi but no wheeze Heart: RRR without MRG Abdomen: soft, non-tender, active bowel sounds; NO HSM Extremities: no C/C/E Neuro: poor LOC reviewed and edited Micro: Microbiology Date/Time Source Procedure Growth Status 03/12/17 21:30 Blood Blood Culture - Preliminary NO GROWTH AFTER 48 HOURS Resulted 03/13/17 09:00 Sputum Gram Stain - Final Resulted 03/13/17 09:00 Sputum Culture - Preliminary Yeast Species Resulted GIOVANNI YEUNG Mar 15, 2017 09:09
--- NOTE | 2017-03-15 09:48 | Infectious Diseases Prog Note ---
Assessment/Plan Assessment/Plan ASSESSMENT: The patient is a 71-year-old male with: Aerococcus urinae bacteremia- ?source UTI however Ucx neg; r/o endocarditis as has been associated with endocarditis in the elderly. -03/03 Bcx 1/ +; 03/06 NTD x4 -Elevated CRp 21.0 03/06 -03/03 TTE: no vegetations, no significant valve abnormalities Sepsis- improving Leukocytosis , resolved FEvers improving- r/o empyema, intrabdominal source HCAP Scx : ESBL EColi ; now new infiltrate- r/o superinfection with another bacteria -sp cx 03/11 yeast (colonizer)- prelim -CXR 03/11: persistent extensive right upper lobe infiltrate. Infiltrate and pleural fluid in the left mid and lower lung persist, are probably unchanged allowing for slightly greater lung volumes on the current exam. -CXR 03/09: New right pulmonary infiltrate. Possible urinary tract infection 03/04 ucx neg; repeat u/a 03/11 u/a no pyuria Elevated inflammatory markers -ESR 94, CRP 14.2 03/11> 8 03/14; improving Influenza negative AST Elevation Positive cardiac enzymes. Acute renal failure, improving Dysphagia. Osteoarthritis. Hypertension. COPD. History of GERD History of H. pylori in the past Dementia with psychosis PLAN: continue IV Merrem d# 8 /10-14 for ESBL PNA and aerococcus bacteremia and IV Vancomycin #5/5-7 given fevers and new infiltrates awaiting repeat cultures 03/08 SP vancomycin d# 5 03/07 SP Zosyn d# 4 -f/u CT chest/abd/p w/ to evaluate for empyema, intrabdominal source of infection f.u repeat sputum cx and repeat Bcx Monitor CBC/CMP.; Trend WBC Monitor cultures (blood ) Monitor chest x-ray. Monitor renal function. Subjective Allergies: Coded Allergies: No Known Allergies (Unverified , 10/20/16) Subjective afebrile in 48hrs leukocytosis resolved repeat Bcx NTD,s p cx yeast Objective Vital Signs Last 24 Hour Vital Signs Date Time Temp Pulse Resp B/P (MAP) Pulse Ox O2 Delivery O2 Flow Rate FiO2 03/15/17 08:51 90 100/58 03/15/17 08:00 98.8 91 31 100/57 98 Mechanical Ventilator 40 03/15/17 08:00 91 03/15/17 08:00 35 03/15/17 07:29 92 30 35 03/15/17 07:00 89 27 103/57 98 Mechanical Ventilator 40 03/15/17 06:00 24 03/15/17 06:00 88 24 115/63 98 Mechanical Ventilator 40 03/15/17 05:34 92 30 35 03/15/17 05:00 89 21 99/56 94 Mechanical Ventilator 40 03/15/17 05:00 21 03/15/17 04:00 98.0 90 24 98/60 94 Mechanical Ventilator 40 03/15/17 04:00 35 03/15/17 04:00 24 03/15/17 04:00 90 03/15/17 03:19 90 17 35 03/15/17 03:00 88 20 94/54 94 Mechanical Ventilator 40 03/15/17 03:00 20 03/15/17 02:00 26 03/15/17 02:00 90 26 91/48 95 Mechanical Ventilator 40 03/15/17 01:26 88 21 35 03/15/17 01:00 89 24 102/54 95 Mechanical Ventilator 40 03/15/17 01:00 24 03/15/17 00:00 88 03/15/17 00:00 35 03/15/17 00:00 98.5 88 21 96/53 95 Mechanical Ventilator 40 03/15/17 00:00 21 03/14/17 23:18 89 25 40 03/14/17 23:00 21 03/14/17 23:00 89 21 96/64 95 Mechanical Ventilator 40 03/14/17 22:00 87 23 90/54 94 Mechanical Ventilator 40 03/14/17 22:00 22 03/14/17 21:14 88 21 35 03/14/17 21:11 88 21 Mechanical Ventilator 35 03/14/17 21:00 89 22 98/56 95 Mechanical Ventilator 40 03/14/17 21:00 22 03/14/17 20:30 88 96/60 03/14/17 20:00 86 03/14/17 20:00 98.8 88 16 96/60 95 Mechanical Ventilator 40 03/14/17 20:00 22 03/14/17 20:00 40 03/14/17 19:25 86 22 35 03/14/17 19:00 23 03/14/17 19:00 88 23 95/62 95 Mechanical Ventilator 40 03/14/17 18:00 87 23 96/63 95 Mechanical Ventilator 40 03/14/17 18:00 22 03/14/17 17:19 87 24 35 03/14/17 17:00 94 23 107/70 95 Mechanical Ventilator 40 03/14/17 17:00 23 03/14/17 16:00 85 03/14/17 16:00 98.7 85 21 94/57 95 Mechanical Ventilator 40 03/14/17 16:00 24 03/14/17 16:00 40 03/14/17 15:20 84 21 35 03/14/17 15:00 85 21 99/57 95 Mechanical Ventilator 40 03/14/17 15:00 22 03/14/17 14:00 85 26 111/59 95 Mechanical Ventilator 40 03/14/17 14:00 23 03/14/17 13:00 82 21 102/58 94 Mechanical Ventilator 40 03/14/17 13:00 23 03/14/17 12:31 81 19 35 03/14/17 12:00 81 03/14/17 12:00 97.8 84 24 102/66 95 Mechanical Ventilator 40 03/14/17 12:00 40 03/14/17 12:00 24 03/14/17 11:00 85 25 96/55 95 Mechanical Ventilator 40 03/14/17 11:00 23 03/14/17 10:48 86 24 35 03/14/17 10:28 29 03/14/17 10:00 79 18 84/51 96 Mechanical Ventilator 40 Height (Feet): 5 Height (Inches): 9.00 Weight (Pounds): 164 Objective General Appearance: other - Intubated, limited eval as patient is not following commands EENT: PERRL/EOMI Neck: supple Cardiovascular: tachycardia Respiratory/Chest: rhonchi - bilaterally Abdomen: soft Extremities: other - cachectic appearance Neurologic: other - limited eval as patient is not following commands Microbiology Date/Time Source Procedure Growth Status 03/12/17 21:30 Blood Blood Culture - Preliminary NO GROWTH AFTER 48 HOURS Resulted 03/13/17 09:00 Sputum Gram Stain - Final Resulted 03/13/17 09:00 Sputum Culture - Preliminary Yeast Species Resulted Laboratory Tests Test 03/14/17 10:30 03/15/17 04:00 Vancomycin Level Trough 21.6 ug/mL (5.0-12.0) H White Blood Count 10.2 K/UL (4.8-10.8) Red Blood Count 3.57 M/UL (4.70-6.10) L Hemoglobin 10.3 G/DL (14.2-18.0) L Hematocrit 32.6 % (42.0-52.0) L Mean Corpuscular Volume 91 FL (80-99) Mean Corpuscular Hemoglobin 28.7 PG (27.0-31.0) Mean Corpuscular Hemoglobin Concent 31.5 G/DL (32.0-36.0) L Red Cell Distribution Width 12.9 % (11.6-14.8) Platelet Count 458 K/UL (150-450) H Mean Platelet Volume 6.2 FL (6.5-10.1) L Neutrophils (%) (Auto) 69.0 % (45.0-75.0) Lymphocytes (%) (Auto) 18.8 % (20.0-45.0) L Monocytes (%) (Auto) 8.1 % (1.0-10.0) Eosinophils (%) (Auto) 3.6 % (0.0-3.0) H Basophils (%) (Auto) 0.6 % (0.0-2.0) Sodium Level 145 MMOL/L (136-145) Potassium Level 3.6 MMOL/L (3.5-5.1) Chloride Level 111 MMOL/L (98-107) H Carbon Dioxide Level 27 MMOL/L (21-32) Anion Gap 7 mmol/L (5-15) Blood Urea Nitrogen 13 mg/dL (7-18) Creatinine 1.0 MG/DL (0.55-1.30) Estimat Glomerular Filtration Rate > 60 mL/min (>60) Glucose Level 96 MG/DL (74-106) Calcium Level 7.0 MG/DL (8.5-10.1) L Total Bilirubin 0.5 MG/DL (0.2-1.0) Aspartate Amino Transf (AST/SGOT) 55 U/L (15-37) H Alanine Aminotransferase (ALT/SGPT) 41 U/L (12-78) Alkaline Phosphatase 91 U/L (46-116) Total Protein 6.0 G/DL (6.4-8.2) L Albumin 1.5 G/DL (3.4-5.0) L Globulin 4.5 g/dL Albumin/Globulin Ratio 0.3 (1.0-2.7) L Current Medications Medications (Trade) Dose Ordered Sig/Ant Route PRN Reason Start Time Stop Time Status Last Admin Dose Admin Acetaminophen (Tylenol) 650 mg Q4H PRN ORAL Mild Pain/Temp > 100.5 03/04/17 08:45 04/03/17 08:44 03/13/17 21:06 Albuterol/ Ipratropium (Albuterol/ Ipratropium) 3 ml Q4HRT PRN HHN sob 03/12/17 09:30 03/17/17 09:29 Albuterol/ Ipratropium (Albuterol/ Ipratropium) 3 ml Q6HRT HHN 03/09/17 13:00 03/14/17 23:59 03/13/17 19:51 Artificial Tears (Akwa-Tears) 2 drop Q2H PRN BOTH EYES Dry Eyes 03/09/17 09:15 04/08/17 09:14 03/13/17 08:49 Aspirin (ASA) 81 mg DAILY NG 03/06/17 14:15 04/05/17 14:14 03/15/17 08:50 Carvedilol (Coreg) 3.125 mg EVERY 12 HOURS PEG 03/13/17 09:00 04/12/17 08:59 03/15/17 08:51 Chlorhexidine Gluconate (Lisa-Hex 2%) 1 applic DAILY@2000 TOPIC 03/09/17 20:00 04/08/17 19:59 03/14/17 20:29 Docusate Sodium (Colace) 100 mg BID GT 03/11/17 21:30 04/10/17 21:29 03/14/17 17:50 Fentanyl Citrate 2500 mcg/Sodium Chloride 250 ml @ 0 mls/hr Q24H IV 03/13/17 23:00 03/20/17 22:59 03/14/17 10:28 Heparin Sodium (Porcine) (Heparin 5000 units/ml) 5,000 units EVERY 12 HOURS SUBQ 03/04/17 21:00 04/03/17 20:59 03/15/17 08:53 Lorazepam (Ativan 2mg/ml 1ml) 1 mg Q4H PRN IV For Anxiety 03/09/17 13:30 03/16/17 23:59 03/13/17 17:22 Meropenem 1 gm/ Sodium Chloride 55 ml @ 110 mls/hr Q8HR@0600,1400,2200 IVPB 03/14/17 16:00 03/19/17 15:59 03/15/17 05:48 Metoclopramide HCl (Reglan) 10 mg Q8HR IVP 03/10/17 20:00 04/09/17 19:59 03/15/17 05:47 Midazolam HCl (Versed 2mg/2ml vial) 1 mg Q2H PRN IVP agitation 03/04/17 11:45 04/03/17 11:44 03/09/17 12:52 Pantoprazole (Protonix) 40 mg Q12HR IVP 03/04/17 21:00 04/03/17 20:59 03/15/17 08:51 Polyethylene Glycol (Miralax) 17 gm BEDTIME ORAL 03/11/17 21:30 04/10/17 21:29 03/13/17 23:06 Vancomycin HCl (Vanco rx to dose) 1 ea DAILY PRN MISC Per rx protocol 03/11/17 10:00 04/10/17 09:59 Vancomycin/Sodium Chloride 250 ml @ 166.667 mls/hr Q12HR@0200,1400 IVPB 03/15/17 02:00 03/20/17 01:59 03/15/17 01:32 Alise Polanco M.D. Mar 15, 2017 09:48
--- NOTE | 2017-03-15 13:33 | Nephrology Progress Note ---
Assessment/Plan Problem List: (1) Respiratory disorder with ventilator dependence (2) UTI (urinary tract infection) (3) Hypernatremia (4) Acute renal failure Assessment - Na 148 - Acute renal failure cr 1.1 to 2.4 to 2.1 to 1.9 to 1.5 WNL - Chronic paranoid schizophrenia - Respiratory disorder with ventilator dependence - Healthcare associated bacterial pneumonia - UTI (urinary tract infection) - SIRS (systemic inflammatory response syndrome) - Alzheimer disease - Hypokalemia - Hypernatremia / due to water deficit improving with D5 resolving Plan plan: D5w K supplement Water NGT Pulm support Antibiotics monitor renal parameters K Phos as needed per orders Subjective ROS Limited/Unobtainable: No Constitutional: Reports: malaise Objective Objective Last 24 Hour Vital Signs Date Time Temp Pulse Resp B/P (MAP) Pulse Ox O2 Delivery O2 Flow Rate FiO2 03/15/17 12:45 86 26 35 03/15/17 12:00 35 03/15/17 12:00 89 03/15/17 12:00 98.8 89 29 114/69 97 Mechanical Ventilator 40 03/15/17 11:26 88 31 35 03/15/17 11:00 85 24 95/61 97 Mechanical Ventilator 40 03/15/17 11:00 26 03/15/17 10:00 25 03/15/17 10:00 87 28 90/50 99 Mechanical Ventilator 40 03/15/17 09:51 88 34 35 03/15/17 09:00 26 03/15/17 09:00 88 26 90/50 98 Mechanical Ventilator 40 03/15/17 08:51 90 100/58 03/15/17 08:00 98.8 91 31 100/57 98 Mechanical Ventilator 40 03/15/17 08:00 28 03/15/17 08:00 88 03/15/17 08:00 35 03/15/17 07:29 92 30 35 03/15/17 07:00 89 27 103/57 98 Mechanical Ventilator 40 03/15/17 07:00 26 03/15/17 06:00 24 03/15/17 06:00 88 24 115/63 98 Mechanical Ventilator 40 03/15/17 05:34 92 30 35 03/15/17 05:00 89 21 99/56 94 Mechanical Ventilator 40 03/15/17 05:00 21 03/15/17 04:00 98.0 90 24 98/60 94 Mechanical Ventilator 40 03/15/17 04:00 35 03/15/17 04:00 24 03/15/17 04:00 90 03/15/17 03:19 90 17 35 03/15/17 03:00 88 20 94/54 94 Mechanical Ventilator 40 03/15/17 03:00 20 03/15/17 02:00 26 03/15/17 02:00 90 26 91/48 95 Mechanical Ventilator 40 03/15/17 01:26 88 21 35 03/15/17 01:00 89 24 102/54 95 Mechanical Ventilator 40 03/15/17 01:00 24 03/15/17 00:00 88 03/15/17 00:00 35 03/15/17 00:00 98.5 88 21 96/53 95 Mechanical Ventilator 40 03/15/17 00:00 21 03/14/17 23:18 89 25 40 03/14/17 23:00 21 03/14/17 23:00 89 21 96/64 95 Mechanical Ventilator 40 03/14/17 22:00 87 23 90/54 94 Mechanical Ventilator 40 03/14/17 22:00 22 03/14/17 21:14 88 21 35 03/14/17 21:11 88 21 Mechanical Ventilator 35 03/14/17 21:00 89 22 98/56 95 Mechanical Ventilator 40 03/14/17 21:00 22 03/14/17 20:30 88 96/60 03/14/17 20:00 86 03/14/17 20:00 98.8 88 16 96/60 95 Mechanical Ventilator 40 03/14/17 20:00 22 03/14/17 20:00 40 03/14/17 19:25 86 22 35 03/14/17 19:00 23 03/14/17 19:00 88 23 95/62 95 Mechanical Ventilator 40 03/14/17 18:00 87 23 96/63 95 Mechanical Ventilator 40 03/14/17 18:00 22 03/14/17 17:19 87 24 35 03/14/17 17:00 94 23 107/70 95 Mechanical Ventilator 40 03/14/17 17:00 23 03/14/17 16:00 85 03/14/17 16:00 98.7 85 21 94/57 95 Mechanical Ventilator 40 03/14/17 16:00 24 03/14/17 16:00 40 12/31/17 15:20 84 21 35 03/14/17 15:00 85 21 99/57 95 Mechanical Ventilator 40 03/14/17 15:00 22 03/14/17 14:00 85 26 111/59 95 Mechanical Ventilator 40 03/14/17 14:00 23 Intake and Output 03/14/17 03/15/17 19:00 07:00 Intake Total 80.4 ml 1031.4 ml Output Total 815 ml 1165 ml Balance -734.6 ml -133.6 ml IV Total 80.4 ml 331.4 ml Tube Feeding 700 ml Output Urine Total 815 ml 1165 ml # Bowel Movements 3 3 Laboratory Tests 03/15/17 04:00: White Blood Count 10.2, Red Blood Count 3.57L, Hemoglobin 10.3L, Hematocrit 32.6L, Mean Corpuscular Volume 91, Mean Corpuscular Hemoglobin 28.7, Mean Corpuscular Hemoglobin Concent 31.5L, Red Cell Distribution Width 12.9, Platelet Count 458H, Mean Platelet Volume 6.2L, Neutrophils (%) (Auto) 69.0, Lymphocytes (%) (Auto) 18.8L, Monocytes (%) (Auto) 8.1, Eosinophils (%) (Auto) 3.6H, Basophils (%) (Auto) 0.6, Sodium Level 145, Potassium Level 3.6, Chloride Level 111H, Carbon Dioxide Level 27, Anion Gap 7, Blood Urea Nitrogen 13, Creatinine 1.0, Estimat Glomerular Filtration Rate > 60, Glucose Level 96, Calcium Level 7.0L, Total Bilirubin 0.5, Aspartate Amino Transf (AST/SGOT) 55H, Alanine Aminotransferase (ALT/SGPT) 41, Alkaline Phosphatase 91, Total Protein 6.0L, Albumin 1.5L, Globulin 4.5, Albumin/Globulin Ratio 0.3L Height (Feet): 5 Height (Inches): 9.00 Weight (Pounds): 164 General Appearance: no apparent distress EENT: other - remains intubated Objective no change CHACHA NUNES Mar 15, 2017 13:33
[2017-03-15] MEDS ORDERED: DAPTOmycin 450 MG in NS 55 ML IV ONE ×2 (16:00→17:30)
[2017-03-15 16:47] LABS: CKMB 0.5 NG/ML (0.0-3.6)
[2017-03-15] MEDS ORDERED: NS 500ML ONE (17:04)
[2017-03-15] MEDS ORDERED: Tubing IV Secondary IV ONE ×2 (17:04→17:22)
[2017-03-15] MEDS ORDERED: NS 275ml ONE (17:21)
[2017-03-15] MEDS: Dyna-Hex 2% Top Sol 2oz TOPIC SCH (21:00)
[2017-03-15] MEDS: Miralax 17gm pkt ORAL SCH (21:04)
[2017-03-15] MEDS: fentaNYL Citrate 2,500 MCG in NS 200 ML IV SCH (21:41)
--- NOTE | 2017-03-15 23:33 | Cardiology Progress Note ---
Assessment/Plan Assessment/Plan 1, Septic shock, improved. 2. Acute NSTEMI vs troponin leak. Continue coreg and ASA. May consider statins. 3. Bacteremia. 4. Hypovolemia, hydration. 5. Pulmonary hypertension. 6. Chronic obstructive pulmonary disease. Subjective Subjective Sinus rhythm at 95. Remains intubated. Objective Last 24 Hour Vital Signs Date Time Temp Pulse Resp B/P (MAP) Pulse Ox O2 Delivery O2 Flow Rate FiO2 03/15/17 23:06 95 37 35 03/15/17 21:34 96 33 35 03/15/17 21:01 96 114/67 03/15/17 21:00 37 03/15/17 20:00 36 03/15/17 19:02 94 30 35 03/15/17 19:00 36 03/15/17 19:00 92 36 112/70 98 Mechanical Ventilator 40 03/15/17 18:00 92 31 117/104 98 Mechanical Ventilator 40 03/15/17 18:00 31 03/15/17 17:00 93 24 92/57 97 Mechanical Ventilator 40 03/15/17 17:00 29 03/15/17 16:40 95 32 35 03/15/17 16:00 91 03/15/17 16:00 98.8 92 35 118/81 98 Mechanical Ventilator 40 03/15/17 16:00 35 03/15/17 16:00 35 03/15/17 15:05 89 33 35 03/15/17 15:00 34 03/15/17 15:00 90 34 109/65 98 Mechanical Ventilator 40 03/15/17 14:00 87 25 95/61 98 Mechanical Ventilator 40 03/15/17 14:00 28 03/15/17 13:00 87 28 92/56 98 Mechanical Ventilator 40 03/15/17 13:00 28 03/15/17 12:45 86 26 35 03/15/17 12:00 35 03/15/17 12:00 89 03/15/17 12:00 98.8 89 29 114/69 97 Mechanical Ventilator 40 03/15/17 12:00 29 03/15/17 11:26 88 31 35 03/15/17 11:00 85 24 95/61 97 Mechanical Ventilator 40 03/15/17 11:00 26 03/15/17 10:00 25 03/15/17 10:00 87 28 90/50 99 Mechanical Ventilator 40 03/15/17 09:51 88 34 35 03/15/17 09:00 26 03/15/17 09:00 88 26 90/50 98 Mechanical Ventilator 40 03/15/17 08:51 90 100/58 03/15/17 08:00 98.8 91 31 100/57 98 Mechanical Ventilator 40 03/15/17 08:00 28 03/15/17 08:00 88 03/15/17 08:00 35 03/15/17 07:29 92 30 35 03/15/17 07:00 89 27 103/57 98 Mechanical Ventilator 40 03/15/17 07:00 26 03/15/17 06:00 24 03/15/17 06:00 88 24 115/63 98 Mechanical Ventilator 40 03/15/17 05:34 92 30 35 03/15/17 05:00 89 21 99/56 94 Mechanical Ventilator 40 03/15/17 05:00 21 03/15/17 04:00 98.0 90 24 98/60 94 Mechanical Ventilator 40 03/15/17 04:00 35 03/15/17 04:00 24 03/15/17 04:00 90 03/15/17 03:19 90 17 35 03/15/17 03:00 88 20 94/54 94 Mechanical Ventilator 40 03/15/17 03:00 20 03/15/17 02:00 26 03/15/17 02:00 90 26 91/48 95 Mechanical Ventilator 40 03/15/17 01:26 88 21 35 03/15/17 01:00 89 24 102/54 95 Mechanical Ventilator 40 03/15/17 01:00 24 03/15/17 00:00 88 03/15/17 00:00 35 03/15/17 00:00 98.5 88 21 96/53 95 Mechanical Ventilator 40 03/15/17 00:00 21 03/14/17 23:18 89 25 40 Intake and Output 03/14/17 03/15/17 19:00 07:00 Intake Total 80.4 ml 1031.4 ml Output Total 815 ml 1165 ml Balance -734.6 ml -133.6 ml IV Total 80.4 ml 331.4 ml Tube Feeding 700 ml Output Urine Total 815 ml 1165 ml # Bowel Movements 3 3 2D Echo: GENERAL: Orally intubated, mechanically ventilated, noncommunicative , and Laboratory Tests Test 03/15/17 04:00 03/15/17 14:25 White Blood Count 10.2 K/UL (4.8-10.8) Red Blood Count 3.57 M/UL (4.70-6.10) L Hemoglobin 10.3 G/DL (14.2-18.0) L Hematocrit 32.6 % (42.0-52.0) L Mean Corpuscular Volume 91 FL (80-99) Mean Corpuscular Hemoglobin 28.7 PG (27.0-31.0) Mean Corpuscular Hemoglobin Concent 31.5 G/DL (32.0-36.0) L Red Cell Distribution Width 12.9 % (11.6-14.8) Platelet Count 458 K/UL (150-450) H Mean Platelet Volume 6.2 FL (6.5-10.1) L Neutrophils (%) (Auto) 69.0 % (45.0-75.0) Lymphocytes (%) (Auto) 18.8 % (20.0-45.0) L Monocytes (%) (Auto) 8.1 % (1.0-10.0) Eosinophils (%) (Auto) 3.6 % (0.0-3.0) H Basophils (%) (Auto) 0.6 % (0.0-2.0) Sodium Level 145 MMOL/L (136-145) Potassium Level 3.6 MMOL/L (3.5-5.1) Chloride Level 111 MMOL/L (98-107) H Carbon Dioxide Level 27 MMOL/L (21-32) Anion Gap 7 mmol/L (5-15) Blood Urea Nitrogen 13 mg/dL (7-18) Creatinine 1.0 MG/DL (0.55-1.30) Estimat Glomerular Filtration Rate > 60 mL/min (>60) Glucose Level 96 MG/DL (74-106) Calcium Level 7.0 MG/DL (8.5-10.1) L Total Bilirubin 0.5 MG/DL (0.2-1.0) Aspartate Amino Transf (AST/SGOT) 55 U/L (15-37) H Alanine Aminotransferase (ALT/SGPT) 41 U/L (12-78) Alkaline Phosphatase 91 U/L (46-116) Total Protein 6.0 G/DL (6.4-8.2) L Albumin 1.5 G/DL (3.4-5.0) L Globulin 4.5 g/dL Albumin/Globulin Ratio 0.3 (1.0-2.7) L Total Creatine Kinase 174 U/L (26-308) Creatine Kinase MB 0.5 NG/ML (0.0-3.6) Creatine Kinase MB Relative Index 0.2 Microbiology Date/Time Source Procedure Growth Status 03/13/17 09:00 Sputum Gram Stain - Final Resulted 03/13/17 09:00 Sputum Culture - Preliminary Yeast Species Resulted Objective HEENT: Temporal wasting. PERRLA, EOMI. Dry mucous membranes. NECK: Negative JVP, no carotid bruit. Lungs: Bilateral rhonchi. CVS: Regular rhythm. Rapid rate. Normal S1 and S2. No murmur. ABDOMEN: Soft, NT/ND, + BS EXT: here is no edema, clubbing or cyanosis. ERIN OGDEN Mar 15, 2017 23:33
[2017-03-16] VITALS (24 sets, daily range): BP systolic 88–120; BP diastolic 51–82
--- NOTE | 2017-03-16 04:15 | Progress Note ---
DATE: 03/14/2017 CARDIOLOGY PROGRESS NOTE Late entry, 03/14/2017 SUBJECTIVE: The patient remains on ventilator support. The patient continues to have abnormal electrolyte parameters. The patient is on hypotonic fluids. OBJECTIVE: VITAL SIGNS: Blood pressure is 114/69, pulse rate 89, respiratory rate 29. Earlier blood pressure was 90/50. LUNGS: Coarse breath sounds. Scattered rhonchi. HEART: Regular rhythm and rate. Normal S1, S2. ABDOMEN: Soft. EXTREMITIES: A 1+ dependent edema. LABORATORY DATA: Sodium 145, potassium 3.6, bicarbonate 27, BUN 13, and creatinine 1. Albumin 1.5. White count of 10 and hemoglobin 10. IMPRESSION: 1. Severe protein-calorie malnutrition. 2. Respiratory failure. 3. Sepsis with shock. 4. Healthcare-acquired pneumonia with parapneumonic effusion. PLAN: 1. Ventilator, respiratory support. 2. Respiratory hygiene. 3. Optimize cardiovascular parameters. 4. Titrate medications accordingly. Manuel Manning M.D. DR: Nicole JOB#: [id number] CC:
[2017-03-16] MEDS: Metoclopramide 10mg/2ml Inj IVP SCH ×3 (06:07→21:34)
[2017-03-16] MEDS: Meropenem 1gm in NS 55ml IVPB SCH ×3 (06:07→21:35)
[2017-03-16] MEDS: Docusate 100mg/10ml Liq GT SCH ×2 (09:07→17:32)
[2017-03-16] MEDS: Pantoprazole Inj IVP SCH ×2 (09:07→21:31)
[2017-03-16] MEDS: Aspirin Baby 81mg NG SCH (09:08)
[2017-03-16] MEDS: Heparin 5000 units/ml inj SUBQ SCH ×2 (09:09→21:34)
--- NOTE | 2017-03-16 10:08 | General Progress Note ---
Assessment/Plan Status: unchanged Assessment/Plan 1. VDRF 2. Sepsis. 2. Healthcare-associated pneumonia (?) 3. Acute hypoxemic respiratory failure. 4. Acute anemia. 5. Hypokalemia. 6. Hypernatremia. 7. Urinary tract infection-healthcare related. 8. Gastrointestinal and deep vein thrombosis prophylaxis. 9. Abnormal Troponin PLAN: CURRENT MANAGEMENT Notes from cardiology, Nephrology, Pulmonary reveiwed Subjective ROS Limited/Unobtainable: Yes - intubated and sedated. limited evaluation Allergies: Coded Allergies: No Known Allergies (Unverified , 10/20/16) Objective Last 24 Hour Vital Signs Date Time Temp Pulse Resp B/P (MAP) Pulse Ox O2 Delivery O2 Flow Rate FiO2 03/16/17 10:00 87 20 99/56 95 Mechanical Ventilator 35 03/16/17 09:07 91 98/58 03/16/17 09:00 90 30 99/56 95 Mechanical Ventilator 35 03/16/17 08:33 91 30 35 03/16/17 08:00 35 03/16/17 08:00 98.5 91 25 98/58 94 Mechanical Ventilator 35 03/16/17 07:00 95 31 35 03/16/17 07:00 93 28 115/82 94 Mechanical Ventilator 35 03/16/17 06:00 91 27 100/65 94 Mechanical Ventilator 35 03/16/17 05:20 92 33 35 03/16/17 05:00 92 34 120/62 94 Mechanical Ventilator 35 03/16/17 04:00 35 03/16/17 04:00 99.8 93 34 112/63 97 Mechanical Ventilator 35 03/16/17 04:00 92 03/16/17 03:15 93 35 35 03/16/17 03:00 92 37 104/62 99 Mechanical Ventilator 35 03/16/17 02:00 89 32 103/61 99 Mechanical Ventilator 35 03/16/17 01:23 89 24 35 03/16/17 01:00 90 29 96/72 99 Mechanical Ventilator 35 03/16/17 00:00 100.0 91 36 99/54 100 Mechanical Ventilator 35 03/16/17 00:00 93 03/16/17 00:00 35 03/15/17 23:06 95 37 35 03/15/17 23:00 94 29 98/61 99 Mechanical Ventilator 35 03/15/17 22:00 95 32 104/57 99 Mechanical Ventilator 35 03/15/17 21:34 96 33 35 03/15/17 21:01 96 114/67 03/15/17 21:00 37 03/15/17 21:00 97 33 135/70 98 Mechanical Ventilator 35 03/15/17 20:00 35 03/15/17 20:00 95 03/15/17 20:00 36 03/15/17 20:00 100.7 96 35 114/67 97 Mechanical Ventilator 35 03/15/17 19:02 94 30 35 03/15/17 19:00 36 03/15/17 19:00 92 36 112/70 98 Mechanical Ventilator 40 03/15/17 18:00 92 31 117/104 98 Mechanical Ventilator 40 03/15/17 18:00 31 03/15/17 17:00 93 24 92/57 97 Mechanical Ventilator 40 03/15/17 17:00 29 03/15/17 16:40 95 32 35 03/15/17 16:00 91 03/15/17 16:00 98.8 92 35 118/81 98 Mechanical Ventilator 40 03/15/17 16:00 35 03/15/17 16:00 35 03/15/17 15:05 89 33 35 03/15/17 15:00 34 03/15/17 15:00 90 34 109/65 98 Mechanical Ventilator 40 03/15/17 14:00 87 25 95/61 98 Mechanical Ventilator 40 03/15/17 14:00 28 03/15/17 13:00 87 28 92/56 98 Mechanical Ventilator 40 03/15/17 13:00 28 03/15/17 12:45 86 26 35 03/15/17 12:00 35 03/15/17 12:00 89 03/15/17 12:00 98.8 89 29 114/69 97 Mechanical Ventilator 40 03/15/17 12:00 29 03/15/17 11:26 88 31 35 03/15/17 11:00 85 24 95/61 97 Mechanical Ventilator 40 03/15/17 11:00 26 Intake and Output 03/15/17 03/16/17 19:00 07:00 Intake Total 796.4 ml 916.4 ml Output Total 1020 ml 855 ml Balance -223.6 ml 61.4 ml Free Water 120 ml IV Total 136.4 ml 136.4 ml Tube Feeding 660 ml 660 ml Output Urine Total 1020 ml 855 ml # Bowel Movements 1 Laboratory Tests 03/15/17 14:25: Total Creatine Kinase 174, Creatine Kinase MB 0.5, Creatine Kinase MB Relative Index 0.2 Height (Feet): 5 Height (Inches): 9.00 Weight (Pounds): 158 General Appearance: no apparent distress EENT: PERRL/EOMI Neck: supple Cardiovascular: normal rate Respiratory/Chest: rhonchi - bilaterally Abdomen: soft Extremities: non-tender, other - atrohphied musculture Edema: trace edema Neurologic: other - intubated and sedated. limited evaluation Colton Charles MD Mar 16, 2017 10:08
--- NOTE | 2017-03-16 11:03 | Pulmonolgy Critical Care Note ---
Critical Care - Asmt/Plan Problems: (1) Respiratory distress (2) COPD (chronic obstructive pulmonary disease) (3) Healthcare associated bacterial pneumonia (4) [facility] resident (5) Alzheimer disease Respiratory: monitor respiratory rate, adjust FIO2, CXR, other - not weaning Cardiac: continue to monitor HR/BP Infectious Disease: check cultures Gastrointestinal: continue feedings/current rate, hold feedings Endocrine: monitor blood sugar, continue sliding scale insulin Hematologic: monitor H/H, transfuse if hgb<8.5 Neurologic: PRN Ativan, PRN Morphine, keep patient comfortable, other - on Fentanyl drip Affect: PRN ativan Prophylaxis: Protonix Notes Reviewed: cardio, renal Discussed with: nurses, consultants, case resource managermanager statistical - Objective Last 24 Hour Vital Signs Date Time Temp Pulse Resp B/P (MAP) Pulse Ox O2 Delivery O2 Flow Rate FiO2 03/16/17 10:00 87 20 99/56 95 Mechanical Ventilator 35 03/16/17 09:07 91 98/58 03/16/17 09:00 90 30 99/56 95 Mechanical Ventilator 35 03/16/17 08:33 91 30 35 03/16/17 08:00 35 03/16/17 08:00 98.5 91 25 98/58 94 Mechanical Ventilator 35 03/16/17 08:00 92 03/16/17 07:00 95 31 35 03/16/17 07:00 93 28 115/82 94 Mechanical Ventilator 35 03/16/17 06:00 91 27 100/65 94 Mechanical Ventilator 35 03/16/17 05:20 92 33 35 03/16/17 05:00 92 34 120/62 94 Mechanical Ventilator 35 03/16/17 04:00 35 03/16/17 04:00 99.8 93 34 112/63 97 Mechanical Ventilator 35 03/16/17 04:00 92 03/16/17 03:15 93 35 35 03/16/17 03:00 92 37 104/62 99 Mechanical Ventilator 35 03/16/17 02:00 89 32 103/61 99 Mechanical Ventilator 35 03/16/17 01:23 89 24 35 03/16/17 01:00 90 29 96/72 99 Mechanical Ventilator 35 03/16/17 00:00 100.0 91 36 99/54 100 Mechanical Ventilator 35 03/16/17 00:00 93 03/16/17 00:00 35 03/15/17 23:06 95 37 35 03/15/17 23:00 94 29 98/61 99 Mechanical Ventilator 35 03/15/17 22:00 95 32 104/57 99 Mechanical Ventilator 35 03/15/17 21:34 96 33 35 03/15/17 21:01 96 114/67 03/15/17 21:00 37 03/15/17 21:00 97 33 135/70 98 Mechanical Ventilator 35 03/15/17 20:00 35 03/15/17 20:00 95 03/15/17 20:00 36 03/15/17 20:00 100.7 96 35 114/67 97 Mechanical Ventilator 35 03/15/17 19:02 94 30 35 03/15/17 19:00 36 03/15/17 19:00 92 36 112/70 98 Mechanical Ventilator 40 03/15/17 18:00 92 31 117/104 98 Mechanical Ventilator 40 03/15/17 18:00 31 03/15/17 17:00 93 24 92/57 97 Mechanical Ventilator 40 03/15/17 17:00 29 03/15/17 16:40 95 32 35 03/15/17 16:00 91 03/15/17 16:00 98.8 92 35 118/81 98 Mechanical Ventilator 40 03/15/17 16:00 35 03/15/17 16:00 35 03/15/17 15:05 89 33 35 03/15/17 15:00 34 03/15/17 15:00 90 34 109/65 98 Mechanical Ventilator 40 03/15/17 14:00 87 25 95/61 98 Mechanical Ventilator 40 03/15/17 14:00 28 03/15/17 13:00 87 28 92/56 98 Mechanical Ventilator 40 03/15/17 13:00 28 03/15/17 12:45 86 26 35 03/15/17 12:00 35 03/15/17 12:00 89 03/15/17 12:00 98.8 89 29 114/69 97 Mechanical Ventilator 40 03/15/17 12:00 29 03/15/17 11:26 88 31 35 03/15/17 11:00 85 24 95/61 97 Mechanical Ventilator 40 03/15/17 11:00 26 Status: awake Condition: critical HEENT: atraumatic Heart: HR/BP stable Abdomen: soft, active bowel sounds Extremities: edema Decubiti: location Critical Care - Subjective ROS Limited/Unobtainable: Yes ICU Day: 13 Condition: critical IV Access: PICC EKG Rhythm: Sinus Rhythm FI02: 35 Vent Support Breath Rate: 16 Vent Support Mode: AC Vent Tidal Volume: 450 Sputum Amount: Small PEEP: 5.0 PIP: 36 Tube Feeding Amount: 60 I&O: Intake and Output 03/15/17 03/16/17 19:00 07:00 Intake Total 796.4 ml 916.4 ml Output Total 1020 ml 855 ml Balance -223.6 ml 61.4 ml Free Water 120 ml IV Total 136.4 ml 136.4 ml Tube Feeding 660 ml 660 ml Output Urine Total 1020 ml 855 ml # Bowel Movements 1 CXR: ET in good position ET-Tube: 7.5 ET Position: 23 Labs: Laboratory Tests Test 03/15/17 14:25 Total Creatine Kinase 174 U/L (26-308) Creatine Kinase MB 0.5 NG/ML (0.0-3.6) Creatine Kinase MB Relative Index 0.2 MARCELA SCHULZ Mar 16, 2017 11:03
[2017-03-16] MEDS: fentaNYL Citrate 2,500 MCG in NS 200 ML IV SCH (11:07)
--- NOTE | 2017-03-16 11:51 | Infectious Diseases Prog Note ---
Assessment/Plan Assessment/Plan ASSESSMENT: The patient is a 71-year-old male with: Aerococcus urinae bacteremia- ?source UTI however Ucx neg; r/o endocarditis as has been associated with endocarditis in the elderly. -03/03 Bcx 1/ +; 03/06 NTD x4 -Elevated CRp 21.0 03/06 -03/03 TTE: no vegetations, no significant valve abnormalities 03/16 CONS bacteremia-likely contaminant 03/12 03/16, 03/15 Bccx p Sepsis- improving Leukocytosis , resolved FEvers improving- r/o empyema, intrabdominal source HCAP Scx : ESBL EColi ; now new infiltrate- r/o superinfection with another bacteria -sp cx 03/11 yeast (colonizer)- prelim -CXR 03/11: persistent extensive right upper lobe infiltrate. Infiltrate and pleural fluid in the left mid and lower lung persist, are probably unchanged allowing for slightly greater lung volumes on the current exam. -CXR 03/09: New right pulmonary infiltrate. Possible urinary tract infection 03/04 ucx neg; repeat u/a 03/11 u/a no pyuria Elevated inflammatory markers -ESR 94, CRP 14.2 03/11> 8 03/14; improving Influenza negative AST Elevation s/p PICC line 03/09 Positive cardiac enzymes. Acute renal failure, improving Dysphagia. Osteoarthritis. Hypertension. COPD. History of GERD History of H. pylori in the past Dementia with psychosis PLAN: continue IV Merrem d# 9 /10-14 for ESBL PNA and aerococcus bacteremia and IV Vancomycin #6/7 given fevers and new infiltrates awaiting repeat cultures and CT 03/15 SP Dapto x1 03/08 SP vancomycin d# 5 03/07 SP Zosyn d# 4 -f/u CT chest/abd/p w/ to evaluate for empyema, intrabdominal source of infection -may need to remove PICC line if recurrent ConS bacteremia or persistent fevers with no obvious source. f.u repeat Bcx Monitor CBC/CMP. Monitor cultures (blood ) Monitor chest x-ray. Monitor renal function. Subjective Allergies: Coded Allergies: No Known Allergies (Unverified , 10/20/16) Subjective continues to have intermittent fevers, Tm 100.7 no leukocytosis 1/[address] pendig Objective Vital Signs Last 24 Hour Vital Signs Date Time Temp Pulse Resp B/P (MAP) Pulse Ox O2 Delivery O2 Flow Rate FiO2 03/16/17 11:42 98.5 03/16/17 11:07 28 03/16/17 11:03 86 26 35 03/16/17 11:00 84 17 92/58 95 Mechanical Ventilator 35 03/16/17 10:00 87 20 99/56 95 Mechanical Ventilator 35 03/16/17 09:07 91 98/58 03/16/17 09:00 90 30 99/56 95 Mechanical Ventilator 35 03/16/17 08:33 91 30 35 03/16/17 08:00 35 03/16/17 08:00 98.5 91 25 98/58 94 Mechanical Ventilator 35 03/16/17 08:00 92 03/16/17 07:00 95 31 35 03/16/17 07:00 93 28 115/82 94 Mechanical Ventilator 35 03/16/17 06:00 91 27 100/65 94 Mechanical Ventilator 35 03/16/17 05:20 92 33 35 03/16/17 05:00 92 34 120/62 94 Mechanical Ventilator 35 03/16/17 04:00 35 03/16/17 04:00 99.8 93 34 112/63 97 Mechanical Ventilator 35 03/16/17 04:00 92 03/16/17 03:15 93 35 35 03/16/17 03:00 92 37 104/62 99 Mechanical Ventilator 35 03/16/17 02:00 89 32 103/61 99 Mechanical Ventilator 35 03/16/17 01:23 89 24 35 03/16/17 01:00 90 29 96/72 99 Mechanical Ventilator 35 03/16/17 00:00 100.0 91 36 99/54 100 Mechanical Ventilator 35 03/16/17 00:00 93 03/16/17 00:00 35 03/15/17 23:06 95 37 35 03/15/17 23:00 94 29 98/61 99 Mechanical Ventilator 35 03/15/17 22:00 95 32 104/57 99 Mechanical Ventilator 35 03/15/17 21:34 96 33 35 03/15/17 21:01 96 114/67 03/15/17 21:00 37 03/15/17 21:00 97 33 135/70 98 Mechanical Ventilator 35 03/15/17 20:00 35 03/15/17 20:00 95 03/15/17 20:00 36 03/15/17 20:00 100.7 96 35 114/67 97 Mechanical Ventilator 35 03/15/17 19:02 94 30 35 03/15/17 19:00 36 03/15/17 19:00 92 36 112/70 98 Mechanical Ventilator 40 03/15/17 18:00 92 31 117/104 98 Mechanical Ventilator 40 03/15/17 18:00 31 03/15/17 17:00 93 24 92/57 97 Mechanical Ventilator 40 03/15/17 17:00 29 03/15/17 16:40 95 32 35 03/15/17 16:00 91 03/15/17 16:00 98.8 92 35 118/81 98 Mechanical Ventilator 40 03/15/17 16:00 35 03/15/17 16:00 35 03/15/17 15:05 89 33 35 03/15/17 15:00 34 03/15/17 15:00 90 34 109/65 98 Mechanical Ventilator 40 03/15/17 14:00 87 25 95/61 98 Mechanical Ventilator 40 03/15/17 14:00 28 03/15/17 13:00 87 28 92/56 98 Mechanical Ventilator 40 03/15/17 13:00 28 03/15/17 12:45 86 26 35 03/15/17 12:00 35 03/15/17 12:00 89 03/15/17 12:00 98.8 89 29 114/69 97 Mechanical Ventilator 40 03/15/17 12:00 29 Height (Feet): 5 Height (Inches): 9.00 Weight (Pounds): 158 Objective General Appearance: other - Intubated, limited eval as patient is not following commands EENT: PERRL/EOMI Neck: supple Cardiovascular: tachycardia Respiratory/Chest: rhonchi - bilaterally Abdomen: soft Extremities: other - cachectic appearance Neurologic: other - limited eval as patient is not following commands Laboratory Tests Test 03/15/17 14:25 Total Creatine Kinase 174 U/L (26-308) Creatine Kinase MB 0.5 NG/ML (0.0-3.6) Creatine Kinase MB Relative Index 0.2 Current Medications Medications (Trade) Dose Ordered Sig/Ant Route PRN Reason Start Time Stop Time Status Last Admin Dose Admin Acetaminophen (Tylenol) 650 mg Q4H PRN ORAL Mild Pain/Temp > 100.5 03/04/17 08:45 1/20/18 08:44 03/13/17 21:06 Albuterol/ Ipratropium (Albuterol/ Ipratropium) 3 ml Q4HRT PRN HHN sob 03/12/17 09:30 03/17/17 09:29 Albuterol/ Ipratropium (Albuterol/ Ipratropium) 3 ml Q6HRT HHN 03/09/17 13:00 03/14/17 23:59 03/13/17 19:51 Artificial Tears (Akwa-Tears) 2 drop Q2H PRN BOTH EYES Dry Eyes 03/09/17 09:15 04/08/17 09:14 03/13/17 08:49 Aspirin (ASA) 81 mg DAILY NG 03/06/17 14:15 04/05/17 14:14 03/16/17 09:08 Carvedilol (Coreg) 3.125 mg EVERY 12 HOURS PEG 03/13/17 09:00 04/12/17 08:59 03/16/17 09:07 Chlorhexidine Gluconate (Lisa-Hex 2%) 1 applic DAILY@2000 TOPIC 03/09/17 20:00 04/08/17 19:59 03/15/17 21:00 Docusate Sodium (Colace) 100 mg BID GT 03/11/17 21:30 04/10/17 21:29 03/16/17 09:07 Fentanyl Citrate 2500 mcg/Sodium Chloride 250 ml @ 0 mls/hr Q24H IV 03/13/17 23:00 03/20/17 22:59 03/16/17 11:07 Heparin Sodium (Porcine) (Heparin 5000 units/ml) 5,000 units EVERY 12 HOURS SUBQ 03/04/17 21:00 04/03/17 20:59 03/16/17 09:09 Lorazepam (Ativan 2mg/ml 1ml) 1 mg Q4H PRN IV For Anxiety 03/09/17 13:30 03/16/17 23:59 03/13/17 17:22 Meropenem 1 gm/ Sodium Chloride 55 ml @ 110 mls/hr Q8HR@0600,1400,2200 IVPB 03/14/17 16:00 03/19/17 15:59 03/16/17 06:07 Metoclopramide HCl (Reglan) 10 mg Q8HR IVP 03/10/17 20:00 04/09/17 19:59 03/16/17 06:07 Midazolam HCl (Versed 2mg/2ml vial) 1 mg Q2H PRN IVP agitation 03/04/17 11:45 04/03/17 11:44 03/09/17 12:52 Pantoprazole (Protonix) 40 mg Q12HR IVP 03/04/17 21:00 04/03/17 20:59 03/16/17 09:07 Polyethylene Glycol (Miralax) 17 gm BEDTIME ORAL 03/11/17 21:30 04/10/17 21:29 03/15/17 21:04 Vancomycin HCl (Vanco rx to dose) 1 ea DAILY PRN MISC Per rx protocol 03/11/17 10:00 04/10/17 09:59 Alise Polanco M.D. Mar 16, 2017 11:51
--- NOTE | 2017-03-16 12:54 | General Progress Note ---
Progress Note Progress Note Bioethics Meeting The Committee was asked to consult on this 71 year old long-term resident who is unrepresented, has no family, and no advance directive. He has critical medical illness requiring controlled ventilation and tracheostomy and PEG are being considered due to the long duration of intubation and the fact that he cannot be weaned from the machine. He has baseline problems of Alzheimers dementia, schizophrenia by hx, contractures, COPD, and past G-tube feedings. He had a POLST from the SNF indicating that he desired all life prolonging measures however his competence was questionable. At this point the liklihood of survival with a quality of life acceptable for most people and families is small and further aggressive care will likely prove futile. The Committee is of the opinion that despite the POLST DNR is appropriate and that terminal intubation and comfort care would be reasonable. Brett Griffith MD Bioethics Chair BRETT GRIFFITH Mar 16, 2017 12:54
--- NOTE | 2017-03-16 17:07 | Nephrology Progress Note ---
Assessment/Plan Problem List: (1) Respiratory disorder with ventilator dependence (2) UTI (urinary tract infection) (3) Hypernatremia (4) Acute renal failure Assessment - Na 148 - Acute renal failure cr 1.1 to 2.4 to 2.1 to 1.9 to 1.5 WNL - Chronic paranoid schizophrenia - Respiratory disorder with ventilator dependence - Healthcare associated bacterial pneumonia - UTI (urinary tract infection) - SIRS (systemic inflammatory response syndrome) - Alzheimer disease - Hypokalemia - Hypernatremia / due to water deficit improving with D5 resolving Plan plan: no labs today D5w K supplement Water NGT Pulm support Antibiotics monitor renal parameters K Phos as needed per orders Subjective ROS Limited/Unobtainable: Yes Objective Objective Last 24 Hour Vital Signs Date Time Temp Pulse Resp B/P (MAP) Pulse Ox O2 Delivery O2 Flow Rate FiO2 03/16/17 16:30 88 32 35 03/16/17 16:00 84 18 98/57 96 Mechanical Ventilator 35 03/16/17 16:00 83 03/16/17 16:00 35 03/16/17 15:25 86 26 35 03/16/17 15:00 86 20 88/54 96 Mechanical Ventilator 35 03/16/17 14:00 85 17 95/57 95 Mechanical Ventilator 35 03/16/17 13:00 84 17 95/57 95 Mechanical Ventilator 35 03/16/17 12:30 85 25 35 03/16/17 12:00 35 03/16/17 12:00 98.6 84 17 93/56 95 Mechanical Ventilator 35 03/16/17 12:00 85 03/16/17 11:42 98.5 03/16/17 11:07 28 03/16/17 11:03 86 26 35 03/16/17 11:00 84 17 92/58 95 Mechanical Ventilator 35 03/16/17 10:00 87 20 99/56 95 Mechanical Ventilator 35 03/16/17 09:07 91 98/58 03/16/17 09:00 90 30 99/56 95 Mechanical Ventilator 35 03/16/17 08:33 91 30 35 03/16/17 08:00 35 03/16/17 08:00 98.5 91 25 98/58 94 Mechanical Ventilator 35 03/16/17 08:00 92 03/16/17 07:00 95 31 35 03/16/17 07:00 93 28 115/82 94 Mechanical Ventilator 35 03/16/17 06:00 91 27 100/65 94 Mechanical Ventilator 35 03/16/17 05:20 92 33 35 03/16/17 05:00 92 34 120/62 94 Mechanical Ventilator 35 03/16/17 04:00 35 03/16/17 04:00 99.8 93 34 112/63 97 Mechanical Ventilator 35 03/16/17 04:00 92 03/16/17 03:15 93 35 35 03/16/17 03:00 92 37 104/62 99 Mechanical Ventilator 35 03/16/17 02:00 89 32 103/61 99 Mechanical Ventilator 35 03/16/17 01:23 89 24 35 03/16/17 01:00 90 29 96/72 99 Mechanical Ventilator 35 03/16/17 00:00 100.0 91 36 99/54 100 Mechanical Ventilator 35 03/16/17 00:00 93 03/16/17 00:00 35 03/15/17 23:06 95 37 35 03/15/17 23:00 94 29 98/61 99 Mechanical Ventilator 35 03/15/17 22:00 95 32 104/57 99 Mechanical Ventilator 35 03/15/17 21:34 96 33 35 03/15/17 21:01 96 114/67 03/15/17 21:00 37 03/15/17 21:00 97 33 135/70 98 Mechanical Ventilator 35 03/15/17 20:00 35 03/15/17 20:00 95 03/15/17 20:00 36 03/15/17 20:00 100.7 96 35 114/67 97 Mechanical Ventilator 35 03/15/17 19:02 94 30 35 03/15/17 19:00 36 03/15/17 19:00 92 36 112/70 98 Mechanical Ventilator 40 03/15/17 18:00 92 31 117/104 98 Mechanical Ventilator 40 03/15/17 18:00 31 Intake and Output 03/15/17 03/16/17 19:00 07:00 Intake Total 796.4 ml 916.4 ml Output Total 1020 ml 855 ml Balance -223.6 ml 61.4 ml Free Water 120 ml IV Total 136.4 ml 136.4 ml Tube Feeding 660 ml 660 ml Output Urine Total 1020 ml 855 ml # Bowel Movements 1 Laboratory Tests 03/16/17 13:00: Vancomycin Level Trough 6.0 Height (Feet): 5 Height (Inches): 9.00 Weight (Pounds): 158 General Appearance: no apparent distress Cardiovascular: tachycardia Respiratory/Chest: decreased breath sounds Abdomen: distended Objective no change CHACHA NUNES Mar 16, 2017 17:07
[2017-03-16] MEDS: Vancomycin 750mg/NS 250ml IVPB SCH (17:36)
--- NOTE | 2017-03-16 19:34 | General Progress Note ---
Assessment/Plan Assessment/Plan Assessment/Plan #. Leukocytosis 2/2 Sepsis. ID following, on abx #. Thrombocytosis likely reactive process #. Acute anemia. Hgb goal above 7. Transfuse as needed, work up has been reviewed #. COPD #. Hypokalemia. #. Hypernatremia. #.Continue DVT prophylaxis with heparin subcutaneous Subjective Allergies: Coded Allergies: No Known Allergies (Unverified , 10/20/16) All Systems: reviewed and negative except above Subjective NAD Objective Last 24 Hour Vital Signs Date Time Temp Pulse Resp B/P (MAP) Pulse Ox O2 Delivery O2 Flow Rate FiO2 03/16/17 18:00 87 18 98/55 95 Mechanical Ventilator 35 03/16/17 17:00 98.5 84 18 100/55 96 Mechanical Ventilator 35 03/16/17 16:30 88 32 35 03/16/17 16:00 84 18 98/57 96 Mechanical Ventilator 35 03/16/17 16:00 83 03/16/17 16:00 35 03/16/17 15:25 86 26 35 03/16/17 15:00 86 20 88/54 96 Mechanical Ventilator 35 03/16/17 14:00 85 17 95/57 95 Mechanical Ventilator 35 03/16/17 13:00 84 17 95/57 95 Mechanical Ventilator 35 03/16/17 12:30 85 25 35 03/16/17 12:00 35 03/16/17 12:00 98.6 84 17 93/56 95 Mechanical Ventilator 35 03/16/17 12:00 85 03/16/17 11:42 98.5 03/16/17 11:07 28 03/16/17 11:03 86 26 35 03/16/17 11:00 84 17 92/58 95 Mechanical Ventilator 35 03/16/17 10:00 87 20 99/56 95 Mechanical Ventilator 35 03/16/17 09:07 91 98/58 03/16/17 09:00 90 30 99/56 95 Mechanical Ventilator 35 03/16/17 08:33 91 30 35 03/16/17 08:00 35 03/16/17 08:00 98.5 91 25 98/58 94 Mechanical Ventilator 35 03/16/17 08:00 92 03/16/17 07:00 95 31 35 03/16/17 07:00 93 28 115/82 94 Mechanical Ventilator 35 03/16/17 06:00 91 27 100/65 94 Mechanical Ventilator 35 03/16/17 05:20 92 33 35 03/16/17 05:00 92 34 120/62 94 Mechanical Ventilator 35 03/16/17 04:00 35 03/16/17 04:00 99.8 93 34 112/63 97 Mechanical Ventilator 35 03/16/17 04:00 92 03/16/17 03:15 93 35 35 03/16/17 03:00 92 37 104/62 99 Mechanical Ventilator 35 03/16/17 02:00 89 32 103/61 99 Mechanical Ventilator 35 03/16/17 01:23 89 24 35 03/16/17 01:00 90 29 96/72 99 Mechanical Ventilator 35 03/16/17 00:00 100.0 91 36 99/54 100 Mechanical Ventilator 35 03/16/17 00:00 93 03/16/17 00:00 35 03/15/17 23:06 95 37 35 03/15/17 23:00 94 29 98/61 99 Mechanical Ventilator 35 03/15/17 22:00 95 32 104/57 99 Mechanical Ventilator 35 03/15/17 21:34 96 33 35 03/15/17 21:01 96 114/67 03/15/17 21:00 37 03/15/17 21:00 97 33 135/70 98 Mechanical Ventilator 35 03/15/17 20:00 35 03/15/17 20:00 95 03/15/17 20:00 36 03/15/17 20:00 100.7 96 35 114/67 97 Mechanical Ventilator 35 Intake and Output 03/15/17 03/16/17 19:00 07:00 Intake Total 796.4 ml 916.4 ml Output Total 1020 ml 855 ml Balance -223.6 ml 61.4 ml Free Water 120 ml IV Total 136.4 ml 136.4 ml Tube Feeding 660 ml 660 ml Output Urine Total 1020 ml 855 ml # Bowel Movements 1 Laboratory Tests 03/16/17 13:00: Vancomycin Level Trough 6.0 Height (Feet): 5 Height (Inches): 9.00 Weight (Pounds): 158 General Appearance: no apparent distress EENT: normal ENT inspection Neck: normal alignment Cardiovascular: normal peripheral pulses Respiratory/Chest: chest wall non-tender Neurologic: bank reconciliator II-XII grossly normal Skin: normal pigmentation Justin Anthony Mar 16, 2017:34
[2017-03-16] MEDS: Miralax 17gm pkt ORAL SCH (21:31)
[2017-03-16] MEDS: Dyna-Hex 2% Top Sol 2oz TOPIC SCH (21:31)
--- NOTE | 2017-03-16 23:59 | Cardiology Progress Note ---
Assessment/Plan Assessment/Plan 1, Septic shock, improved. 2. Acute NSTEMI vs troponin leak. Continue coreg and ASA. May consider statins. 3. Bacteremia. 4. Hypovolemia, hydration. 5. Pulmonary hypertension. 6. Chronic obstructive pulmonary disease. Subjective Subjective Sinus rhythm at 95. Remains intubated. Objective Last 24 Hour Vital Signs Date Time Temp Pulse Resp B/P (MAP) Pulse Ox O2 Delivery O2 Flow Rate FiO2 03/16/17 23:00 91 31 103/65 96 Mechanical Ventilator 35 03/16/17 22:00 89 28 91/55 97 Mechanical Ventilator 35 03/16/17 21:00 89 28 99/51 96 Mechanical Ventilator 35 03/16/17 21:00 90 98/55 03/16/17 20:57 90 34 35 03/16/17 20:00 97.2 85 18 100/61 95 Mechanical Ventilator 35 03/16/17 20:00 35 03/16/17 20:00 89 03/16/17 19:53 89 39 35 03/16/17 19:00 85 18 100/61 95 Mechanical Ventilator 35 03/16/17 18:00 87 18 98/55 95 Mechanical Ventilator 35 03/16/17 17:00 98.5 84 18 100/55 96 Mechanical Ventilator 35 03/16/17 16:30 88 32 35 03/16/17 16:00 84 18 98/57 96 Mechanical Ventilator 35 03/16/17 16:00 83 03/16/17 16:00 35 03/16/17 15:25 86 26 35 03/16/17 15:00 86 20 88/54 96 Mechanical Ventilator 35 03/16/17 14:00 85 17 95/57 95 Mechanical Ventilator 35 03/16/17 13:00 84 17 95/57 95 Mechanical Ventilator 35 03/16/17 12:30 85 25 35 03/16/17 12:00 35 03/16/17 12:00 98.6 84 17 93/56 95 Mechanical Ventilator 35 03/16/17 12:00 85 03/16/17 11:42 98.5 03/16/17 11:07 28 03/16/17 11:03 86 26 35 03/16/17 11:00 84 17 92/58 95 Mechanical Ventilator 35 03/16/17 10:00 87 20 99/56 95 Mechanical Ventilator 35 03/16/17 09:07 91 98/58 03/16/17 09:00 90 30 99/56 95 Mechanical Ventilator 35 03/16/17 08:33 91 30 35 03/16/17 08:00 35 03/16/17 08:00 98.5 91 25 98/58 94 Mechanical Ventilator 35 03/16/17 08:00 92 03/16/17 07:00 95 31 35 03/16/17 07:00 93 28 115/82 94 Mechanical Ventilator 35 03/16/17 06:00 91 27 100/65 94 Mechanical Ventilator 35 03/16/17 05:20 92 33 35 03/16/17 05:00 92 34 120/62 94 Mechanical Ventilator 35 03/16/17 04:00 35 03/16/17 04:00 99.8 93 34 112/63 97 Mechanical Ventilator 35 03/16/17 04:00 92 03/16/17 03:15 93 35 35 03/16/17 03:00 92 37 104/62 99 Mechanical Ventilator 35 03/16/17 02:00 89 32 103/61 99 Mechanical Ventilator 35 03/16/17 01:23 89 24 35 03/16/17 01:00 90 29 96/72 99 Mechanical Ventilator 35 03/16/17 00:00 100.0 91 36 99/54 100 Mechanical Ventilator 35 03/16/17 00:00 93 03/16/17 00:00 35 Intake and Output 03/15/17 03/16/17 19:00 07:00 Intake Total 796.4 ml 916.4 ml Output Total 1020 ml 855 ml Balance -223.6 ml 61.4 ml Free Water 120 ml IV Total 136.4 ml 136.4 ml Tube Feeding 660 ml 660 ml Output Urine Total 1020 ml 855 ml # Bowel Movements 1 Laboratory Tests Test 03/16/17 13:00 Vancomycin Level Trough 6.0 ug/mL (5.0-12.0) Objective HEENT: Temporal wasting. PERRLA, EOMI. Dry mucous membranes. NECK: Negative JVP, no carotid bruit. Lungs: Bilateral rhonchi. CVS: Regular rhythm. Rapid rate. Normal S1 and S2. No murmur. ABDOMEN: Soft, NT/ND, + BS EXT: here is no edema, clubbing or cyanosis. ERIN OGDEN Mar 16, 2017 23:59
[2017-03-17] VITALS (31 sets, daily range): BP systolic 85–146; BP diastolic 48–118
[2017-03-17 05:57] LABS: BASOPHILS % (AUTO) 0.6 % (0.0-2.0); EOSINOPHILS % (AUTO) 2.8 % (0.0-3.0); HEMATOCRIT 33.1 % (42.0-52.0); HEMOGLOBIN 10.3 G/DL (14.2-18.0); LYMPHOCYTES % (AUTO) 23.1 % (20.0-45.0); MEAN CORPUSCULAR VOLUME 93 FL (80-99); MONOCYTES % (AUTO) 7.5 % (1.0-10.0); NEUTROPHILS % (AUTO) 66.1 % (45.0-75.0); PLATELET COUNT 500 K/UL (150-450); RED BLOOD COUNT 3.57 M/UL (4.70-6.10); RED CELL DISTRIBUTION WIDTH 13.2 % (11.6-14.8); WHITE BLOOD COUNT 11.3 K/UL (4.8-10.8)
[2017-03-17 06:21] LABS: ALANINE AMINOTRANSFERASE 40 U/L (12-78); ALBUMIN 1.7 G/DL (3.4-5.0); ALBUMIN/GLOBULIN RATIO 0.3 (1.0-2.7); ALKALINE PHOSPHATASE 97 U/L (46-116); ANION GAP 5 mmol/L (5-15); ASPARTATE AMINO TRANSFERASE 52 U/L (15-37); BILIRUBIN,TOTAL 0.4 MG/DL (0.2-1.0); BLOOD UREA NITROGEN 15 mg/dL (7-18); CALCIUM 7.9 MG/DL (8.5-10.1); CARBON DIOXIDE 28 MMOL/L (21-32); CHLORIDE 111 MMOL/L (98-107); PHOSPHORUS 3.3 MG/DL (2.5-4.9); SODIUM 144 MMOL/L (136-145)
[2017-03-17] MEDS: Meropenem 1gm in NS 55ml IVPB SCH ×3 (07:08→21:31)
[2017-03-17] MEDS: Metoclopramide 10mg/2ml Inj IVP SCH (07:09)
[2017-03-17] MEDS: Vancomycin 750mg/NS 250ml IVPB SCH ×2 (08:44→17:28)
[2017-03-17] MEDS: Pantoprazole Inj IVP SCH ×2 (08:49→20:44)
[2017-03-17] MEDS: Docusate 100mg/10ml Liq GT SCH ×2 (08:50→17:28)
[2017-03-17] MEDS: Heparin 5000 units/ml inj SUBQ SCH ×2 (08:53→20:46)
[2017-03-17] MEDS: Aspirin Baby 81mg NG SCH (08:55)
[2017-03-17] MEDS ORDERED: fentaNYL Citrate 1000 MCG in NS 100ml IV SCH (09:29)
--- NOTE | 2017-03-17 10:06 | Infectious Diseases Prog Note ---
Assessment/Plan Assessment/Plan ASSESSMENT: The patient is a 71-year-old male with: Aerococcus urinae bacteremia- ?source UTI however Ucx neg; r/o endocarditis as has been associated with endocarditis in the elderly. -03/03 Bcx / +; 03/06 NTD x4 -Elevated CRp 21.0 03/06 -03/03 TTE: no vegetations, no significant valve abnormalities 03/16 CONS bacteremia-likely contaminant 03/12 03/16, 03/15 Bccx NTD x4 Sepsis- ongoing- still febrile, recurrent leukocytosis Leukocytosis , recurrent FEvers improving- r/o empyema, intrabdominal source HCAP Scx : ESBL EColi ; now new infiltrate- r/o superinfection with another bacteria -sp cx 03/11 +1 C. albicans(colonizer) -CXR 03/11: persistent extensive right upper lobe infiltrate. Infiltrate and pleural fluid in the left mid and lower lung persist, are probably unchanged allowing for slightly greater lung volumes on the current exam. -CXR 03/09: New right pulmonary infiltrate. Possible urinary tract infection 03/04 ucx neg; repeat u/a 03/11 u/a no pyuria Elevated inflammatory markers -ESR 94, CRP 14.2 03/11> 8 03/14; improving Influenza negative AST Elevation s/p PICC line 03/09 Positive cardiac enzymes. Acute renal failure, improving Dysphagia. Osteoarthritis. Hypertension. COPD. History of GERD History of H. pylori in the past Dementia with psychosis PLAN: continue IV Merrem d# 10 /10-14 for ESBL PNA and aerococcus bacteremia and IV Vancomycin #7/7-10 given fevers and new infiltrates awaiting repeat cultures and CT 03/15 SP Dapto x1 03/08 SP vancomycin d# 5 03/07 SP Zosyn d# 4 -Ongoing discussion with Ethics committe re goals of care- ?comfort care vs continue aggressive measures - if aggressive measures is favored then patient neesd CT chest/abd/p w/ in a urgent basis to determine cause of ongoing sepsis in the setting of broad spectrum IV abx tx. -may need to remove PICC line if recurrent ConS bacteremia or persistent fevers with no obvious source. f.u repeat Bcx Monitor CBC/CMP. Monitor cultures (blood ) Monitor chest x-ray. Monitor renal function. Subjective Allergies: Coded Allergies: No Known Allergies (Unverified , 10/20/16) Subjective afebrile in Almost 36hrs mild leukocytosis repeat Bcx NTD onging discussion with ethics committe regarding goals of care Objective Vital Signs Last 24 Hour Vital Signs Date Time Temp Pulse Resp B/P (MAP) Pulse Ox O2 Delivery O2 Flow Rate FiO2 03/17/17 09:30 86 23 98/62 97 Mechanical Ventilator 35 03/17/17 09:19 88 27 35 03/17/17 09:19 20 03/17/17 09:00 89 23 88/60 98 Mechanical Ventilator 35 03/17/17 08:50 88 97/60 03/17/17 08:30 94 31 95/48 100 Mechanical Ventilator 35 03/17/17 08:00 89 03/17/17 08:00 98.5 88 30 95/48 100 Mechanical Ventilator 35 03/17/17 08:00 35 03/17/17 07:30 88 24 97/60 98 Mechanical Ventilator 35 03/17/17 07:09 89 26 35 03/17/17 07:00 89 23 88/60 98 Mechanical Ventilator 35 03/17/17 06:00 92 30 104/65 95 Mechanical Ventilator 35 03/17/17 05:00 83 24 100/66 96 Mechanical Ventilator 35 03/17/17 04:56 80 20 35 03/17/17 04:03 85 28 35 03/17/17 04:00 35 03/17/17 04:00 85 03/17/17 04:00 23 03/17/17 04:00 98.8 81 22 85/54 96 Mechanical Ventilator 35 03/17/17 03:00 24 03/17/17 03:00 84 24 92/55 96 Mechanical Ventilator 35 03/17/17 02:00 23 03/17/17 02:00 83 23 88/59 96 Mechanical Ventilator 35 03/17/17 01:00 85 24 91/60 96 Mechanical Ventilator 35 03/17/17 01:00 24 03/17/17 00:40 87 27 35 03/17/17 00:00 90 03/17/17 00:00 26 03/17/17 00:00 98.9 89 27 93/52 96 Mechanical Ventilator 35 03/16/17 23:00 91 31 103/65 96 Mechanical Ventilator 35 03/16/17 23:00 28 03/16/17 22:00 89 28 91/55 97 Mechanical Ventilator 35 03/16/17 22:00 28 03/16/17 21:00 89 28 99/51 96 Mechanical Ventilator 35 03/16/17 21:00 28 03/16/17 21:00 90 98/55 03/16/17 20:57 90 34 35 03/16/17 20:00 97.2 85 18 100/61 95 Mechanical Ventilator 35 03/16/17 20:00 35 03/16/17 20:00 89 03/16/17 20:00 29 03/16/17 19:53 89 39 35 03/16/17 19:00 29 03/16/17 19:00 85 18 100/61 95 Mechanical Ventilator 35 03/16/17 18:00 87 18 98/55 95 Mechanical Ventilator 35 03/16/17 17:00 98.5 84 18 100/55 96 Mechanical Ventilator 35 03/16/17 16:30 88 32 35 03/16/17 16:00 84 18 98/57 96 Mechanical Ventilator 35 03/16/17 16:00 83 03/16/17 16:00 35 03/16/17 15:25 86 26 35 03/16/17 15:00 86 20 88/54 96 Mechanical Ventilator 35 03/16/17 14:00 85 17 95/57 95 Mechanical Ventilator 35 03/16/17 13:00 84 17 95/57 95 Mechanical Ventilator 35 03/16/17 12:30 85 25 35 03/16/17 12:00 35 03/16/17 12:00 98.6 84 17 93/56 95 Mechanical Ventilator 35 03/16/17 12:00 85 03/16/17 11:42 98.5 03/16/17 11:07 28 03/16/17 11:03 86 26 35 03/16/17 11:00 84 17 92/58 95 Mechanical Ventilator 35 03/16/17 10:00 87 20 99/56 95 Mechanical Ventilator 35 Height (Feet): 5 Height (Inches): 9.00 Weight (Pounds): 152 Objective General Appearance: other - Intubated, limited eval as patient is not following commands EENT: PERRL/EOMI Neck: supple Cardiovascular: tachycardia Respiratory/Chest: rhonchi - bilaterally Abdomen: soft Extremities: other - cachectic appearance Neurologic: other - limited eval as patient is not following commands Microbiology Date/Time Source Procedure Growth Status 03/15/17 14:25 Blood Blood Culture - Preliminary NO GROWTH AFTER 24 HOURS Resulted 03/15/17 14:25 Blood Blood Culture - Preliminary NO GROWTH AFTER 24 HOURS Resulted Laboratory Tests Test 03/16/17 13:00 03/17/17 04:30 03/17/17 08:22 Vancomycin Level Trough 6.0 ug/mL (5.0-12.0) White Blood Count 11.3 K/UL (4.8-10.8) H Red Blood Count 3.57 M/UL (4.70-6.10) L Hemoglobin 10.3 G/DL (14.2-18.0) L Hematocrit 33.1 % (42.0-52.0) L Mean Corpuscular Volume 93 FL (80-99) Mean Corpuscular Hemoglobin 28.7 PG (27.0-31.0) Mean Corpuscular Hemoglobin Concent 31.0 G/DL (32.0-36.0) L Red Cell Distribution Width 13.2 % (11.6-14.8) Platelet Count 500 K/UL (150-450) H Mean Platelet Volume 6.4 FL (6.5-10.1) L Neutrophils (%) (Auto) 66.1 % (45.0-75.0) Lymphocytes (%) (Auto) 23.1 % (20.0-45.0) Monocytes (%) (Auto) 7.5 % (1.0-10.0) Eosinophils (%) (Auto) 2.8 % (0.0-3.0) Basophils (%) (Auto) 0.6 % (0.0-2.0) Sodium Level 144 MMOL/L (136-145) Potassium Level 4.0 MMOL/L (3.5-5.1) Chloride Level 111 MMOL/L (98-107) H Carbon Dioxide Level 28 MMOL/L (21-32) Anion Gap 5 mmol/L (5-15) Blood Urea Nitrogen 15 mg/dL (7-18) Creatinine 1.0 MG/DL (0.55-1.30) Estimat Glomerular Filtration Rate > 60 mL/min (>60) Glucose Level 87 MG/DL (74-106) Calcium Level 7.9 MG/DL (8.5-10.1) L Phosphorus Level 3.3 MG/DL (2.5-4.9) Magnesium Level 2.2 MG/DL (1.8-2.4) Total Bilirubin 0.4 MG/DL (0.2-1.0) Aspartate Amino Transf (AST/SGOT) 52 U/L (15-37) H Alanine Aminotransferase (ALT/SGPT) 40 U/L (12-78) Alkaline Phosphatase 97 U/L (46-116) Total Protein 6.6 G/DL (6.4-8.2) Albumin 1.7 G/DL (3.4-5.0) L Globulin 4.9 g/dL Albumin/Globulin Ratio 0.3 (1.0-2.7) L Arterial Blood pH 7.473 (7.350-7.450) Arterial Blood Partial Pressure CO2 35.0 mmHg (35.0-45.0) Arterial Blood Partial Pressure O2 65.8 mmHg (75.0-100.0) L Arterial Blood HCO3 25.1 mmol/L (22.0-26.0) Arterial Blood Oxygen Saturation 92.6 % (92.0-98.0) Arterial Blood Base Excess 1.7 Ulises Test Positive Current Medications Medications (Trade) Dose Ordered Sig/Ant Route PRN Reason Start Time Stop Time Status Last Admin Dose Admin Acetaminophen (Tylenol) 650 mg Q4H PRN ORAL Mild Pain/Temp > 100.5 03/04/17 08:45 04/03/17 08:44 03/13/17 21:06 Albuterol/ Ipratropium (Albuterol/ Ipratropium) 3 ml Q6HRT HHN 03/09/17 13:00 03/14/17 23:59 03/13/17 19:51 Artificial Tears (Akwa-Tears) 2 drop Q2H PRN BOTH EYES Dry Eyes 03/09/17 09:15 04/08/17 09:14 03/13/17 08:49 Aspirin (ASA) 81 mg DAILY NG 03/06/17 14:15 04/05/17 14:14 03/17/17 08:55 Carvedilol (Coreg) 3.125 mg EVERY 12 HOURS PEG 03/13/17 09:00 04/12/17 08:59 03/17/17 08:50 Chlorhexidine Gluconate (Lisa-Hex 2%) 1 applic DAILY@1999 TOPIC 03/09/17 20:00 04/08/17 19:59 03/16/17 21:31 Docusate Sodium (Colace) 100 mg BID GT 03/11/17 21:30 04/10/17 21:29 03/17/17 08:50 Fentanyl Citrate 1000 mcg/Sodium Chloride 100 ml @ 0 mls/hr Q24H IV 03/17/17 09:29 03/24/17 09:28 03/17/17 09:19 Heparin Sodium (Porcine) (Heparin 5000 units/ml) 5,000 units EVERY 12 HOURS SUBQ 03/04/17 21:00 04/03/17 20:59 03/17/17 08:53 Lorazepam (Ativan 2mg/ml 1ml) 1 mg Q4H PRN IV For Anxiety 03/09/17 13:30 03/16/17 23:59 03/13/17 17:22 Meropenem 1 gm/ Sodium Chloride 55 ml @ 110 mls/hr Q8HR@0600,1400,2200 IVPB 03/14/17 16:00 03/19/17 15:59 03/17/17 07:08 Metoclopramide HCl (Reglan) 10 mg Q8HR IVP 03/10/17 20:00 04/09/17 19:59 03/17/17 07:09 Midazolam HCl (Versed 2mg/2ml vial) 1 mg Q2H PRN IVP agitation 03/04/17 11:45 04/03/17 11:44 03/09/17 12:52 Pantoprazole (Protonix) 40 mg Q12HR IVP 03/04/17 21:00 04/03/17 20:59 03/17/17 08:49 Polyethylene Glycol (Miralax) 17 gm BEDTIME ORAL 03/11/17 21:30 04/10/17 21:29 03/16/17 21:31 Vancomycin HCl (Vanco rx to dose) 1 ea DAILY PRN MISC Per rx protocol 03/11/17 10:00 04/10/17 09:59 Vancomycin/Sodium Chloride 250 ml @ 166.667 mls/hr Q12HR@0600,1800 IVPB 03/16/17 18:00 03/21/17 17:59 03/17/17 08:44 Alise Polanco M.D. Mar 17, 2017 10:06
--- NOTE | 2017-03-17 11:05 | Pulmonolgy Critical Care Note ---
Critical Care - Asmt/Plan Problems: (1) Respiratory distress (2) COPD (chronic obstructive pulmonary disease) (3) Healthcare associated bacterial pneumonia (4) assisted resident (5) Alzheimer disease Respiratory: monitor respiratory rate, adjust FIO2, ABG, other - pt will need trach Cardiac: continue to monitor HR/BP Renal: F/U I&O Infectious Disease: check cultures, continue antibiotics Gastrointestinal: continue feedings/current rate Endocrine: monitor blood sugar, continue sliding scale insulin Hematologic: monitor H/H, transfuse if hgb<8.5 Neurologic: PRN Ativan, PRN Morphine, keep patient comfortable Affect: PRN ativan Disposition: keep in ICU Time Spent (Minutes): 40 Notes Reviewed: [employer] law clerk, renal Discussed with: nurses, consultants, watch caserserver manager - Objective Last 24 Hour Vital Signs Date Time Temp Pulse Resp B/P (MAP) Pulse Ox O2 Delivery O2 Flow Rate FiO2 03/17/17 10:00 86 23 93/61 98 Mechanical Ventilator 35 03/17/17 09:30 86 23 98/62 97 Mechanical Ventilator 35 03/17/17 09:19 88 27 35 03/17/17 09:19 20 03/17/17 09:00 89 23 88/60 98 Mechanical Ventilator 35 03/17/17 08:50 88 97/60 03/17/17 08:30 94 31 95/48 100 Mechanical Ventilator 35 03/17/17 08:00 89 03/17/17 08:00 98.5 88 30 95/48 100 Mechanical Ventilator 35 03/17/17 08:00 35 03/17/17 07:30 88 24 97/60 98 Mechanical Ventilator 35 03/17/17 07:09 89 26 35 03/17/17 07:00 89 23 88/60 98 Mechanical Ventilator 35 03/17/17 06:00 92 30 104/65 95 Mechanical Ventilator 35 03/17/17 05:00 83 24 100/66 96 Mechanical Ventilator 35 03/17/17 04:56 80 20 35 03/17/17 04:03 85 28 35 03/17/17 04:00 35 03/17/17 04:00 85 03/17/17 04:00 23 03/17/17 04:00 98.8 81 22 85/54 96 Mechanical Ventilator 35 03/17/17 03:00 24 03/17/17 03:00 84 24 92/55 96 Mechanical Ventilator 35 03/17/17 02:00 23 03/17/17 02:00 83 23 88/59 96 Mechanical Ventilator 35 03/17/17 01:00 85 24 91/60 96 Mechanical Ventilator 35 03/17/17 01:00 24 03/17/17 00:40 87 27 35 03/17/17 00:00 90 03/17/17 00:00 26 03/17/17 00:00 98.9 89 27 93/52 96 Mechanical Ventilator 35 03/16/17 23:00 91 31 103/65 96 Mechanical Ventilator 35 03/16/17 23:00 28 03/16/17 22:00 89 28 91/55 97 Mechanical Ventilator 35 03/16/17 22:00 28 03/16/17 21:00 89 28 99/51 96 Mechanical Ventilator 35 03/16/17 21:00 28 03/16/17 21:00 90 98/55 03/16/17 20:57 90 34 35 03/16/17 20:00 97.2 85 18 100/61 95 Mechanical Ventilator 35 03/16/17 20:00 35 03/16/17 20:00 89 03/16/17 20:00 29 03/16/17 19:53 89 39 35 03/16/17 19:00 29 03/16/17 19:00 85 18 100/61 95 Mechanical Ventilator 35 03/16/17 18:00 87 18 98/55 95 Mechanical Ventilator 35 03/16/17 17:00 98.5 84 18 100/55 96 Mechanical Ventilator 35 03/16/17 16:30 88 32 35 03/16/17 16:00 84 18 98/57 96 Mechanical Ventilator 35 03/16/17 16:00 83 03/16/17 16:00 35 03/16/17 15:25 86 26 35 03/16/17 15:00 86 20 88/54 96 Mechanical Ventilator 35 03/16/17 14:00 85 17 95/57 95 Mechanical Ventilator 35 03/16/17 13:00 84 17 95/57 95 Mechanical Ventilator 35 03/16/17 12:30 85 25 35 03/16/17 12:00 35 03/16/17 12:00 98.6 84 17 93/56 95 Mechanical Ventilator 35 03/16/17 12:00 85 03/16/17 11:42 98.5 03/16/17 11:07 28 Status: awake Condition: critical HEENT: atraumatic Lungs: clear Heart: HR/BP stable Abdomen: soft, non-tender Extremities: no C/C/E Decubiti: location Micro: Microbiology Date/Time Source Procedure Growth Status 03/15/17 14:25 Blood Blood Culture - Preliminary NO GROWTH AFTER 24 HOURS Resulted 03/15/17 14:25 Blood Blood Culture - Preliminary NO GROWTH AFTER 24 HOURS Resulted Critical Care - Subjective ROS Limited/Unobtainable: Yes ICU Day: 14 Condition: critical EKG Rhythm: Sinus Rhythm FI02: 35 Vent Support Breath Rate: 16 Vent Support Mode: AC Vent Tidal Volume: 450 Sputum Amount: Small PEEP: 5.0 PIP: 36 Tube Feeding Amount: 0 I&O: Intake and Output 03/16/17 03/17/17 19:00 07:00 Intake Total 972.2 ml 319.8 ml Output Total 650 ml 780 ml Balance 322.2 ml -460.2 ml Free Water 250 ml IV Total 2.2 ml 19.8 ml Tube Feeding 720 ml 300 ml Output Urine Total 650 ml 780 ml # Bowel Movements 1 1 CXR: no changes ET-Tube: 7.5 ET Position: 23 Labs: Laboratory Tests Test 03/16/17 13:00 03/17/17 04:30 03/17/17 08:22 Vancomycin Level Trough 6.0 ug/mL (5.0-12.0) White Blood Count 11.3 K/UL (4.8-10.8) H Red Blood Count 3.57 M/UL (4.70-6.10) L Hemoglobin 10.3 G/DL (14.2-18.0) L Hematocrit 33.1 % (42.0-52.0) L Mean Corpuscular Volume 93 FL (80-99) Mean Corpuscular Hemoglobin 28.7 PG (27.0-31.0) Mean Corpuscular Hemoglobin Concent 31.0 G/DL (32.0-36.0) L Red Cell Distribution Width 13.2 % (11.6-14.8) Platelet Count 500 K/UL (150-450) H Mean Platelet Volume 6.4 FL (6.5-10.1) L Neutrophils (%) (Auto) 66.1 % (45.0-75.0) Lymphocytes (%) (Auto) 23.1 % (20.0-45.0) Monocytes (%) (Auto) 7.5 % (1.0-10.0) Eosinophils (%) (Auto) 2.8 % (0.0-3.0) Basophils (%) (Auto) 0.6 % (0.0-2.0) Sodium Level 144 MMOL/L (136-145) Potassium Level 4.0 MMOL/L (3.5-5.1) Chloride Level 111 MMOL/L (98-107) H Carbon Dioxide Level 28 MMOL/L (21-32) Anion Gap 5 mmol/L (5-15) Blood Urea Nitrogen 15 mg/dL (7-18) Creatinine 1.0 MG/DL (0.55-1.30) Estimat Glomerular Filtration Rate > 60 mL/min (>60) Glucose Level 87 MG/DL (74-106) Calcium Level 7.9 MG/DL (8.5-10.1) L Phosphorus Level 3.3 MG/DL (2.5-4.9) Magnesium Level 2.2 MG/DL (1.8-2.4) Total Bilirubin 0.4 MG/DL (0.2-1.0) Aspartate Amino Transf (AST/SGOT) 52 U/L (15-37) H Alanine Aminotransferase (ALT/SGPT) 40 U/L (12-78) Alkaline Phosphatase 97 U/L (46-116) Total Protein 6.6 G/DL (6.4-8.2) Albumin 1.7 G/DL (3.4-5.0) L Globulin 4.9 g/dL Albumin/Globulin Ratio 0.3 (1.0-2.7) L Arterial Blood pH 7.473 (7.350-7.450) Arterial Blood Partial Pressure CO2 35.0 mmHg (35.0-45.0) Arterial Blood Partial Pressure O2 65.8 mmHg (75.0-100.0) L Arterial Blood HCO3 25.1 mmol/L (22.0-26.0) Arterial Blood Oxygen Saturation 92.6 % (92.0-98.0) Arterial Blood Base Excess 1.7 Ulises Test Positive MARCELA SCHULZ Mar 17, 2017 11:05
[2017-03-17] MEDS ORDERED: Morphine Sulfate 2mg/ml Inj IVP PRN (12:00)
--- NOTE | 2017-03-17 12:26 | General Progress Note ---
Assessment/Plan Status: unchanged Assessment/Plan 1. VDRF 2. Sepsis. 2. Healthcare-associated pneumonia (?) 3. Acute hypoxemic respiratory failure. 4. Acute anemia. 5. Hypokalemia. 6. Hypernatremia. 7. Urinary tract infection-healthcare related. 8. Gastrointestinal and deep vein thrombosis prophylaxis. 9. Abnormal Troponin PLAN: CURRENT MANAGEMENT Notes from cardiology, Nephrology, Pulmonary reviewed Poor Prognosis Active current ID management Subjective ROS Limited/Unobtainable: Yes Allergies: Coded Allergies: No Known Allergies (Unverified , 10/20/16) Objective Last 24 Hour Vital Signs Date Time Temp Pulse Resp B/P (MAP) Pulse Ox O2 Delivery O2 Flow Rate FiO2 03/17/17 12:00 31 03/17/17 12:00 35 03/17/17 12:00 98.8 93 23 98/79 98 Mechanical Ventilator 35 03/17/17 11:30 93 23 99/69 96 Mechanical Ventilator 35 03/17/17 11:17 89 24 35 03/17/17 11:00 27 03/17/17 11:00 88 30 86/62 94 Mechanical Ventilator 35 03/17/17 10:30 88 22 101/71 98 Mechanical Ventilator 35 03/17/17 10:00 86 23 93/61 98 Mechanical Ventilator 35 03/17/17 10:00 25 03/17/17 09:30 86 23 98/62 97 Mechanical Ventilator 35 03/17/17 09:19 88 27 35 03/17/17 09:19 20 03/17/17 09:00 89 23 88/60 98 Mechanical Ventilator 35 03/17/17 08:50 88 97/60 03/17/17 08:30 94 31 95/48 100 Mechanical Ventilator 35 03/17/17 08:00 89 03/17/17 08:00 98.5 88 30 95/48 100 Mechanical Ventilator 35 03/17/17 08:00 35 03/17/17 07:30 88 24 97/60 98 Mechanical Ventilator 35 03/17/17 07:09 89 26 35 03/17/17 07:00 89 23 88/60 98 Mechanical Ventilator 35 03/17/17 06:00 92 30 104/65 95 Mechanical Ventilator 35 03/17/17 05:00 83 24 100/66 96 Mechanical Ventilator 35 03/17/17 04:56 80 20 35 03/17/17 04:03 85 28 35 03/17/17 04:00 35 03/17/17 04:00 85 03/17/17 04:00 23 03/17/17 04:00 98.8 81 22 85/54 96 Mechanical Ventilator 35 03/17/17 03:00 24 03/17/17 03:00 84 24 92/55 96 Mechanical Ventilator 35 03/17/17 02:00 23 03/17/17 02:00 83 23 88/59 96 Mechanical Ventilator 35 03/17/17 01:00 85 24 91/60 96 Mechanical Ventilator 35 03/17/17 01:00 24 03/17/17 00:40 87 27 35 03/17/17 00:00 90 03/17/17 00:00 26 03/17/17 00:00 98.9 89 27 93/52 96 Mechanical Ventilator 35 03/16/17 23:00 91 31 103/65 96 Mechanical Ventilator 35 03/16/17 23:00 28 03/16/17 22:00 89 28 91/55 97 Mechanical Ventilator 35 03/16/17 22:00 28 03/16/17 21:00 89 28 99/51 96 Mechanical Ventilator 35 03/16/17 21:00 28 03/16/17 21:00 90 98/55 03/16/17 20:57 90 34 35 03/16/17 20:00 97.2 85 18 100/61 95 Mechanical Ventilator 35 03/16/17 20:00 35 03/16/17 20:00 89 03/16/17 20:00 29 03/16/17 19:53 89 39 35 03/16/17 19:00 29 03/16/17 19:00 85 18 100/61 95 Mechanical Ventilator 35 03/16/17 18:00 87 18 98/55 95 Mechanical Ventilator 35 03/16/17 17:00 98.5 84 18 100/55 96 Mechanical Ventilator 35 03/16/17 16:30 88 32 35 03/16/17 16:00 84 18 98/57 96 Mechanical Ventilator 35 03/16/17 16:00 83 03/16/17 16:00 35 03/16/17 15:25 86 26 35 03/16/17 15:00 86 20 88/54 96 Mechanical Ventilator 35 03/16/17 14:00 85 17 95/57 95 Mechanical Ventilator 35 03/16/17 13:00 84 17 95/57 95 Mechanical Ventilator 35 03/16/17 12:30 85 25 35 Intake and Output 03/16/17 03/17/17 19:00 07:00 Intake Total 972.2 ml 319.8 ml Output Total 650 ml 780 ml Balance 322.2 ml -460.2 ml Free Water 250 ml IV Total 2.2 ml 19.8 ml Tube Feeding 720 ml 300 ml Output Urine Total 650 ml 780 ml # Bowel Movements 1 1 Laboratory Tests 03/16/17 13:00: Vancomycin Level Trough 6.0 03/17/17 04:30: White Blood Count 11.3H, Red Blood Count 3.57L, Hemoglobin 10.3L, Hematocrit 33.1L, Mean Corpuscular Volume 93, Mean Corpuscular Hemoglobin 28.7, Mean Corpuscular Hemoglobin Concent 31.0L, Red Cell Distribution Width 13.2, Platelet Count 500H, Mean Platelet Volume 6.4L, Neutrophils (%) (Auto) 66.1, Lymphocytes (%) (Auto) 23.1, Monocytes (%) (Auto) 7.5, Eosinophils (%) (Auto) 2.8, Basophils (%) (Auto) 0.6, Sodium Level 144, Potassium Level 4.0, Chloride Level 111H, Carbon Dioxide Level 28, Anion Gap 5, Blood Urea Nitrogen 15, Creatinine 1.0, Estimat Glomerular Filtration Rate > 60, Glucose Level 87, Calcium Level 7.9L, Phosphorus Level 3.3, Magnesium Level 2.2, Total Bilirubin 0.4, Aspartate Amino Transf (AST/SGOT) 52H, Alanine Aminotransferase (ALT/SGPT) 40, Alkaline Phosphatase 97, Total Protein 6.6, Albumin 1.7L, Globulin 4.9, Albumin/Globulin Ratio 0.3L 03/17/17 08:22: Arterial Blood pH 7.473H, Arterial Blood Partial Pressure CO2 35.0, Arterial Blood Partial Pressure O2 65.8L, Arterial Blood HCO3 25.1, Arterial Blood Oxygen Saturation 92.6, Arterial Blood Base Excess 1.7, Ulises Test Positive Height (Feet): 5 Height (Inches): 9.00 Weight (Pounds): 152 General Appearance: no apparent distress, other - limited eval. as patient not following commands EENT: other - limited eval. as patient not following commands Neck: supple Cardiovascular: tachycardia Respiratory/Chest: rhonchi - bilaterally Abdomen: soft Extremities: other - limited eval. as patient not following commands Neurologic: other - limited eval. as patient not following commands Objective comfortable. entubated. limited eval. as patient not following commands Colton Charles MD Mar 17, 2017 12:26
--- NOTE | 2017-03-17 12:47 | Diagnostic Imaging Report ---
Indication: Dyspnea Technique: One view of the chest Comparison: 03/13/2017 Findings: Right upper lobe reticular consolidation persists, probably not significantly changed. There appears to be slightly improved retrocardiac aeration, but consolidation and atelectasis persists. There is decreased reticular consolidation in the left lung apex. There may be atelectasis of a of the left lower lobe; if so this is unchanged. Stable satisfactory positions of endotracheal and nasogastric tubes, left arm PICC. Marked elevation of the right hemidiaphragm persists Impression: Slightly improved retrocardiac and left upper lobe aeration, as described. Otherwise with little roving changer 4 days
[2017-03-17] MEDS: LORazepam Inj 2mg/ml 1ml IV PRN (15:27)
--- NOTE | 2017-03-17 16:31 | General Progress Note ---
Assessment/Plan Assessment/Plan Assessment/Plan #. Leukocytosis 2/2 Sepsis. ID following, on abx --> improving, continue to follow #. Thrombocytosis likely reactive process #. Anemia of chronic disease. Hgb goal above 7. Transfuse as needed, work up has been reviewed #. COPD #. Hypokalemia. #. Hypernatremia. #. Continue DVT prophylaxis with heparin subcutaneous and PPI Subjective Constitutional: Denies: no symptoms, chills, diaphoresis, fever, malaise, weakness, other HEENT: Denies: no symptoms, eye pain, blurred vision, tearing, double vision, ear pain, ear discharge, nose pain, nose congestion, throat pain, throat swelling, mouth pain, mouth swelling, other Cardiovascular: Denies: no symptoms, chest pain, edema, irregular heart rate, lightheadedness, palpitations, syncope, other Gastrointestinal/Abdominal: Denies: no symptoms, abdomen distended, abdominal pain, black stools, tarry stools, blood in stool, constipated, diarrhea, difficulty swallowing, nausea, poor appetite, poor fluid intake, rectal bleeding , vomiting, other Genitourinary: Denies: no symptoms, burning, discharge, frequency, flank pain, hematuria, incontinence, pain, urgency, other Neurologic/Psychiatric: Denies: no symptoms, anxiety, depressed, emotional problems, headache, numbness, paresthesia, pre-existing deficit, seizure, tingling, tremors, weakness, other Endocrine: Denies: no symptoms, excessive sweating, flushing, intolerance to cold, intolerance to heat, increased hunger, increased thirst, increased urine, unexplained weight gain, unexplained weight loss, other Hematologic/Lymphatic: Denies: no symptoms, anemia, easy bleeding, easy bruising, other Allergies: Coded Allergies: No Known Allergies (Unverified , 10/20/16) Subjective NAD Objective Last 24 Hour Vital Signs Date Time Temp Pulse Resp B/P (MAP) Pulse Ox O2 Delivery O2 Flow Rate FiO2 03/17/17 15:21 84 22 35 03/17/17 15:00 83 20 98/58 97 Mechanical Ventilator 35 03/17/17 15:00 20 03/17/17 14:00 83 25 95/61 99 Mechanical Ventilator 35 03/17/17 14:00 24 03/17/17 13:30 87 21 93/58 97 Mechanical Ventilator 35 03/17/17 13:18 86 19 35 03/17/17 13:00 82 24 100/59 97 Mechanical Ventilator 35 03/17/17 13:00 25 03/17/17 12:30 94 26 98/79 97 Mechanical Ventilator 35 03/17/17 12:00 93 03/17/17 12:00 31 03/17/17 12:00 35 03/17/17 12:00 98.8 93 23 98/79 98 Mechanical Ventilator 35 03/17/17 11:30 93 23 99/69 96 Mechanical Ventilator 35 03/17/17 11:17 89 24 35 03/17/17 11:00 27 03/17/17 11:00 88 30 86/62 94 Mechanical Ventilator 35 03/17/17 10:30 88 22 101/71 98 Mechanical Ventilator 35 03/17/17 10:00 86 23 93/61 98 Mechanical Ventilator 35 03/17/17 10:00 25 03/17/17 09:30 86 23 98/62 97 Mechanical Ventilator 35 03/17/17 09:19 88 27 35 03/17/17 09:19 20 03/17/17 09:00 89 23 88/60 98 Mechanical Ventilator 35 03/17/17 08:50 88 97/60 03/17/17 08:30 94 31 95/48 100 Mechanical Ventilator 35 03/17/17 08:00 89 03/17/17 08:00 98.5 88 30 95/48 100 Mechanical Ventilator 35 03/17/17 08:00 35 03/17/17 07:30 88 24 97/60 98 Mechanical Ventilator 35 03/17/17 07:09 89 26 35 03/17/17 07:00 89 23 88/60 98 Mechanical Ventilator 35 03/17/17 06:00 92 30 104/65 95 Mechanical Ventilator 35 03/17/17 05:00 83 24 100/66 96 Mechanical Ventilator 35 03/17/17 04:56 80 20 35 03/17/17 04:03 85 28 35 03/17/17 04:00 35 03/17/17 04:00 85 03/17/17 04:00 23 03/17/17 04:00 98.8 81 22 85/54 96 Mechanical Ventilator 35 03/17/17 03:00 24 03/17/17 03:00 84 24 92/55 96 Mechanical Ventilator 35 03/17/17 02:00 23 03/17/17 02:00 83 23 88/59 96 Mechanical Ventilator 35 03/17/17 01:00 85 24 91/60 96 Mechanical Ventilator 35 03/17/17 01:00 24 03/17/17 00:40 87 27 35 03/17/17 00:00 90 03/17/17 00:00 26 03/17/17 00:00 98.9 89 27 93/52 96 Mechanical Ventilator 35 03/16/17 23:00 91 31 103/65 96 Mechanical Ventilator 35 03/16/17 23:00 28 03/16/17 22:00 89 28 91/55 97 Mechanical Ventilator 35 03/16/17 22:00 28 03/16/17 21:00 89 28 99/51 96 Mechanical Ventilator 35 03/16/17 21:00 28 03/16/17 21:00 90 98/55 03/16/17 20:57 90 34 35 03/16/17 20:00 97.2 85 18 100/61 95 Mechanical Ventilator 35 03/16/17 20:00 35 03/16/17 20:00 89 03/16/17 20:00 29 03/16/17 19:53 89 39 35 03/16/17 19:00 29 03/16/17 19:00 85 18 100/61 95 Mechanical Ventilator 35 03/16/17 18:00 87 18 98/55 95 Mechanical Ventilator 35 03/16/17 17:00 98.5 84 18 100/55 96 Mechanical Ventilator 35 Intake and Output 03/16/17 03/17/17 19:00 07:00 Intake Total 972.2 ml 319.8 ml Output Total 650 ml 780 ml Balance 322.2 ml -460.2 ml Free Water 250 ml IV Total 2.2 ml 19.8 ml Tube Feeding 720 ml 300 ml Output Urine Total 650 ml 780 ml # Bowel Movements 1 1 Laboratory Tests 03/17/17 04:30: White Blood Count 11.3H, Red Blood Count 3.57L, Hemoglobin 10.3L, Hematocrit 33.1L, Mean Corpuscular Volume 93, Mean Corpuscular Hemoglobin 28.7, Mean Corpuscular Hemoglobin Concent 31.0L, Red Cell Distribution Width 13.2, Platelet Count 500H, Mean Platelet Volume 6.4L, Neutrophils (%) (Auto) 66.1, Lymphocytes (%) (Auto) 23.1, Monocytes (%) (Auto) 7.5, Eosinophils (%) (Auto) 2.8, Basophils (%) (Auto) 0.6, Sodium Level 144, Potassium Level 4.0, Chloride Level 111H, Carbon Dioxide Level 28, Anion Gap 5, Blood Urea Nitrogen 15, Creatinine 1.0, Estimat Glomerular Filtration Rate > 60, Glucose Level 87, Calcium Level 7.9L, Phosphorus Level 3.3, Magnesium Level 2.2, Total Bilirubin 0.4, Aspartate Amino Transf (AST/SGOT) 52H, Alanine Aminotransferase (ALT/SGPT) 40, Alkaline Phosphatase 97, Total Protein 6.6, Albumin 1.7L, Globulin 4.9, Albumin/Globulin Ratio 0.3L 03/17/17 08:22: Arterial Blood pH 7.473H, Arterial Blood Partial Pressure CO2 35.0, Arterial Blood Partial Pressure O2 65.8L, Arterial Blood HCO3 25.1, Arterial Blood Oxygen Saturation 92.6, Arterial Blood Base Excess 1.7, Ulises Test Positive Height (Feet): 5 Height (Inches): 9.00 Weight (Pounds): 152 General Appearance: no apparent distress EENT: TMs normal Neck: supple Cardiovascular: normal rate Respiratory/Chest: chest wall non-tender Abdomen: no organomegaly Extremities: non-tender Edema: 1+ Leg (L), 1+ Leg (R) Justin Anthony Mar 17, 2017 16:31
--- NOTE | 2017-03-17 17:05 | Diagnostic Imaging Report ---
INDICATION: Vomiting, abdominal pain and distention, chest pain TECHNIQUE: No oral contrast . Multiphasic spiral acquisitions obtained through the chest, abdomen, and pelvis Multiplanar reconstructions were generated. Total dose length product 1349.82 mGycm. CTDIvol(s) 14.15,12.56 mGy. Radiation dose was minimized using automated exposure control COMPARISON: Chest radiograph of earlier the same day FINDINGS Chest: There is some image degradation due to motion artifact. There is marked elevation of the right hemidiaphragm. Dense consolidation is seen involving much of the right upper lobe. Dense consolidation and atelectasis are seen involving much of the right lower lobe. The right middle lobe is relatively clear. Dense consolidation and atelectasis are seen in the posterior left lower lobe. There is a small left pleural effusion. The left upper lobe is largely clear. There is an endotracheal tube in good position. There is a nasogastric tube, tip terminating in the gastric antrum in good position. The heart size is normal. No pericardial effusion. No mediastinal or hilar mass or adenopathy demonstrated. The included thyroid is unremarkable. No axillary or chest wall mass or adenopathy. The bones are grossly unremarkable. Abdomen and pelvis: There is some image degradation due to motion artifact. There are a few colonic diverticula. There is colonic interposition. No small bowel distention. No free or loculated intraperitoneal air or fluid is evident. Normal appendix. The stomach and duodenum are unremarkable. As above, there is marked elevation of the right hemidiaphragm. The liver, gallbladder, bile ducts, pancreas, spleen, adrenals, kidneys are unremarkable. No retroperitoneal or mesenteric mass or adenopathy. No pelvic mass or adenopathy. There is a Beltran catheter within the bladder. The prostate is mildly prominent. There is some heterotopic ossification about the right hip. There are degenerative changes of the lumbosacral spine. Bones are otherwise unremarkable. Impression: Somewhat limited exam due to motion artifact Right upper lobe, right lower lobe, and left lower lobe atelectasis and consolidation. Likely pneumonia, otherwise nonspecific Elevated right hemidiaphragm Small left pleural effusion Satisfactory positions of endotracheal and nasogastric tubes. No acute abdominal process Degenerative lumbar spondylosis Colonic interposition incidentally noted Colonic diverticulosis Beltran catheter. 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
--- NOTE | 2017-03-17 17:06 | Consultation ---
History of Present Illness General Date patient seen: Mar 17, 2017 Chief Complaint: Dyspnea/Respdistress Reason for Consultation: prolonged ventilatory support Present Illness HPI 71M with multiple medical comorbidities presented with sob, fever, tachycardia, and sepsis. Was admitted to ICU and required intubation for respiratory failure. has since required ventilatory support without ability to wean significantly. given current medical condition will likely require joint terminal attack controller ventilatory support. surgery called to evaluate for tracheostomy. Allergies: Coded Allergies: No Known Allergies (Unverified , 10/20/16) Medication History Scheduled Al Hydroxide/mg Hydroxide (Mag-Al Plus Suspension), 30 ML PO Q6HR, (Reported) Ascorbic Acid* (Vitamin C*), 500 MG ORAL DAILY, (Reported) Aspirin* (Aspir 81*), 81 MG ORAL DAILY, (Reported) Docusate Sodium* (Docusate Sodium*), 100 MG ORAL DAILY, (Reported) Multivitamin With Minerals (Multivitamins With Minerals*), 1 TAB ORAL DAILY, ( Reported) Nitroglycerin (Nitroglycerin), 0.4 MG SL Q5M x3 DOSES PRN, (Reported) Omeprazole (Omeprazole), 40 MG ORAL DAILY, (Reported) Sucralfate* (Carafate*), 1 GM ORAL FOUR TIMES A DAY, (Reported) Sucralfate* (Carafate*), 1 GM ORAL FOUR TIMES A DAY, (Reported) Scheduled PRN Acetaminophen (Tylenol), 500 MG ORAL Q4HR PRN for Prn Pain/Headache/Temp > 101, (Reported) Acetaminophen* (Acetaminophen 325MG Tablet*), 650 MG ORAL Q4H PRN for Mild Pain/ Temp > 100.5, (Reported) Al Hydroxide/mg Hydroxide (Mag-Al Plus Suspension), 30 ML PO Q6HR PRN for Constipation, (Reported) Diphenhydramine Hcl* (Diphenhydramine Hcl*), 25 MG ORAL Q6H PRN for Itching, ( Reported) Ondansetron* (Zofran*), 4 MG ORAL Q6H PRN for Nausea & Vomiting, (Reported) Ondansetron* (Zofran*), 4 MG ORAL Q6H PRN for Nausea & Vomiting, (Reported) Polyethylene Glycol 3350* (Miralax*), 17 GM ORAL DAILY PRN for Constipation, ( Reported) Temazepam* (Temazepam*), 15 MG ORAL BEDTIME PRN for Insomnia, (Reported) Patient History Limited by: medical condition History Provided By: Medical Record, PMD Healthcare decision maker Resuscitation status Advanced Directive on File Past Medical/Surgical History Past Medical/Surgical History: (1) Esophagitis (2) Psychosis (3) Sepsis (4) Helicobacter pylori (H. pylori) (5) Limited mobility (6) Hypokalemia (7) Hypocalcemia (8) Alzheimer disease (9) Respiratory distress (10) Hypernatremia (11) UTI (urinary tract infection) (12) Respiratory failure (13) Chronic paranoid schizophrenia (14) UTI (urinary tract infection) (15) SIRS (systemic inflammatory response syndrome) (16) Healthcare associated bacterial pneumonia (17) Respiratory disorder with ventilator dependence (18) Acute renal failure (19) Gram-positive bacteremia (20) COPD (chronic obstructive pulmonary disease) (21) Nosocomial pneumonia Review of Systems ROS Narrative cannot obtain given patients current medical condition Physical Exam General Appearance: lethargic, thin HEENT: atraumatic, mucous membranes moist Neck: normal inspection Respiratory/Chest: on vent Cardiovascular/Chest: tachycardia Abdomen: soft, no organomegaly, no mass Extremities: normal inspection Skin Exam: normal pigmentation, warm/dry Neurologic: unresponsiveness Last 24 Hour Vital Signs Date Time Temp Pulse Resp B/P (MAP) Pulse Ox O2 Delivery O2 Flow Rate FiO2 03/17/17 16:00 98.5 93 28 95/56 95 Mechanical Ventilator 35 03/17/17 16:00 35 03/17/17 15:21 84 22 35 03/17/17 15:00 83 20 98/58 97 Mechanical Ventilator 35 03/17/17 15:00 20 03/17/17 14:00 83 25 95/61 99 Mechanical Ventilator 35 03/17/17 14:00 24 03/17/17 13:30 87 21 93/58 97 Mechanical Ventilator 35 03/17/17 13:18 86 19 35 03/17/17 13:00 82 24 100/59 97 Mechanical Ventilator 35 03/17/17 13:00 25 03/17/17 12:30 94 26 98/79 97 Mechanical Ventilator 35 03/17/17 12:00 93 03/17/17 12:00 31 03/17/17 12:00 35 03/17/17 12:00 98.8 93 23 98/79 98 Mechanical Ventilator 35 03/17/17 11:30 93 23 99/69 96 Mechanical Ventilator 35 03/17/17 11:17 89 24 35 03/17/17 11:00 27 03/17/17 11:00 88 30 86/62 94 Mechanical Ventilator 35 03/17/17 10:30 88 22 101/71 98 Mechanical Ventilator 35 03/17/17 10:00 86 23 93/61 98 Mechanical Ventilator 35 03/17/17 10:00 25 03/17/17 09:30 86 23 98/62 97 Mechanical Ventilator 35 03/17/17 09:19 88 27 35 03/17/17 09:19 20 03/17/17 09:00 89 23 88/60 98 Mechanical Ventilator 35 03/17/17 08:50 88 97/60 03/17/17 08:30 94 31 95/48 100 Mechanical Ventilator 35 03/17/17 08:00 89 03/17/17 08:00 98.5 88 30 95/48 100 Mechanical Ventilator 35 03/17/17 08:00 35 03/17/17 07:30 88 24 97/60 98 Mechanical Ventilator 35 03/17/17 07:09 89 26 35 03/17/17 07:00 89 23 88/60 98 Mechanical Ventilator 35 03/17/17 06:00 92 30 104/65 95 Mechanical Ventilator 35 03/17/17 05:00 83 24 100/66 96 Mechanical Ventilator 35 03/17/17 04:56 80 20 35 03/17/17 04:03 85 28 35 03/17/17 04:00 35 03/17/17 04:00 85 03/17/17 04:00 23 03/17/17 04:00 98.8 81 22 85/54 96 Mechanical Ventilator 35 03/17/17 03:00 24 03/17/17 03:00 84 24 92/55 96 Mechanical Ventilator 35 03/17/17 02:00 23 03/17/17 02:00 83 23 88/59 96 Mechanical Ventilator 35 03/17/17 01:00 85 24 91/60 96 Mechanical Ventilator 35 03/17/17 01:00 24 03/17/17 00:40 87 27 35 03/17/17 00:00 90 03/17/17 00:00 26 03/17/17 00:00 98.9 89 27 93/52 96 Mechanical Ventilator 35 03/16/17 23:00 91 31 103/65 96 Mechanical Ventilator 35 03/16/17 23:00 28 03/16/17 22:00 89 28 91/55 97 Mechanical Ventilator 35 03/16/17 22:00 28 03/16/17 21:00 89 28 99/51 96 Mechanical Ventilator 35 03/16/17 21:00 28 03/16/17 21:00 90 98/55 03/16/17 20:57 90 34 35 03/16/17 20:00 97.2 85 18 100/61 95 Mechanical Ventilator 35 03/16/17 20:00 35 03/16/17 20:00 89 03/16/17 20:00 29 03/16/17 19:53 89 39 35 03/16/17 19:00 29 03/16/17 19:00 85 18 100/61 95 Mechanical Ventilator 35 03/16/17 18:00 87 18 98/55 95 Mechanical Ventilator 35 Intake and Output 03/16/17 03/17/17 19:00 07:00 Intake Total 972.2 ml 319.8 ml Output Total 650 ml 780 ml Balance 322.2 ml -460.2 ml Free Water 250 ml IV Total 2.2 ml 19.8 ml Tube Feeding 720 ml 300 ml Output Urine Total 650 ml 780 ml # Bowel Movements 1 1 Laboratory Tests Test 03/17/17 04:30 03/17/17 08:22 White Blood Count 11.3 K/UL (4.8-10.8) H Red Blood Count 3.57 M/UL (4.70-6.10) L Hemoglobin 10.3 G/DL (14.2-18.0) L Hematocrit 33.1 % (42.0-52.0) L Mean Corpuscular Volume 93 FL (80-99) Mean Corpuscular Hemoglobin 28.7 PG (27.0-31.0) Mean Corpuscular Hemoglobin Concent 31.0 G/DL (32.0-36.0) L Red Cell Distribution Width 13.2 % (11.6-14.8) Platelet Count 500 K/UL (150-450) H Mean Platelet Volume 6.4 FL (6.5-10.1) L Neutrophils (%) (Auto) 66.1 % (45.0-75.0) Lymphocytes (%) (Auto) 23.1 % (20.0-45.0) Monocytes (%) (Auto) 7.5 % (1.0-10.0) Eosinophils (%) (Auto) 2.8 % (0.0-3.0) Basophils (%) (Auto) 0.6 % (0.0-2.0) Sodium Level 144 MMOL/L (136-145) Potassium Level 4.0 MMOL/L (3.5-5.1) Chloride Level 111 MMOL/L (98-107) H Carbon Dioxide Level 28 MMOL/L (21-32) Anion Gap 5 mmol/L (5-15) Blood Urea Nitrogen 15 mg/dL (7-18) Creatinine 1.0 MG/DL (0.55-1.30) Estimat Glomerular Filtration Rate > 60 mL/min (>60) Glucose Level 87 MG/DL (74-106) Calcium Level 7.9 MG/DL (8.5-10.1) L Phosphorus Level 3.3 MG/DL (2.5-4.9) Magnesium Level 2.2 MG/DL (1.8-2.4) Total Bilirubin 0.4 MG/DL (0.2-1.0) Aspartate Amino Transf (AST/SGOT) 52 U/L (15-37) H Alanine Aminotransferase (ALT/SGPT) 40 U/L (12-78) Alkaline Phosphatase 97 U/L (46-116) Total Protein 6.6 G/DL (6.4-8.2) Albumin 1.7 G/DL (3.4-5.0) L Globulin 4.9 g/dL Albumin/Globulin Ratio 0.3 (1.0-2.7) L Arterial Blood pH 7.473 (7.350-7.450) Arterial Blood Partial Pressure CO2 35.0 mmHg (35.0-45.0) Arterial Blood Partial Pressure O2 65.8 mmHg (75.0-100.0) L Arterial Blood HCO3 25.1 mmol/L (22.0-26.0) Arterial Blood Oxygen Saturation 92.6 % (92.0-98.0) Arterial Blood Base Excess 1.7 Ulises Test Positive Height (Feet): 5 Height (Inches): 9.00 Weight (Pounds): 152 Medications Current Medications Medications (Trade) Dose Ordered Sig/Ant Route PRN Reason Start Time Stop Time Status Last Admin Dose Admin Acetaminophen (Tylenol) 650 mg Q4H PRN ORAL Mild Pain/Temp > 100.5 03/04/17 08:45 04/03/17 08:44 03/13/17 21:06 Albuterol/ Ipratropium (Albuterol/ Ipratropium) 3 ml Q6HRT HHN 03/09/17 13:00 03/14/17 23:59 03/13/17 19:51 Artificial Tears (Akwa-Tears) 2 drop Q2H PRN BOTH EYES Dry Eyes 03/09/17 09:15 04/08/17 09:14 03/13/17 08:49 Aspirin (ASA) 81 mg DAILY NG 03/06/17 14:15 04/05/17 14:14 03/17/17 08:55 Carvedilol (Coreg) 3.125 mg EVERY 12 HOURS PEG 03/13/17 09:00 04/12/17 08:59 03/17/17 08:50 Chlorhexidine Gluconate (Lisa-Hex 2%) 1 applic DAILY@2000 TOPIC 03/09/17 20:00 04/08/17 19:59 03/16/17 21:31 Docusate Sodium (Colace) 100 mg BID GT 03/11/17 21:30 04/10/17 21:29 03/17/17 08:50 Fentanyl Citrate 1000 mcg/Sodium Chloride 100 ml @ 0 mls/hr Q24H IV 03/17/17 09:29 03/24/17 09:28 03/17/17 09:19 Heparin Sodium (Porcine) (Heparin 5000 units/ml) 5,000 units EVERY 12 HOURS SUBQ 03/04/17 21:00 04/03/17 20:59 03/17/17 08:53 Lorazepam (Ativan 2mg/ml 1ml) 2 mg Q4H PRN IV For Anxiety 03/17/17 12:00 03/24/17 11:59 03/17/17 15:27 Meropenem 1 gm/ Sodium Chloride 55 ml @ 110 mls/hr Q8HR@0600,1400,2200 IVPB 03/14/17 16:00 03/19/17 15:59 03/17/17 13:38 Morphine Sulfate (Morphine Sulfate) 2 mg Q4H PRN IVP Severe Pain (Pain Scale 7-10) 03/17/17 12:00 03/24/17 11:59 Pantoprazole (Protonix) 40 mg Q12HR IVP 03/04/17 21:00 04/03/17 20:59 03/17/17 08:49 Polyethylene Glycol (Miralax) 17 gm BEDTIME ORAL 03/11/17 21:30 04/10/17 21:29 03/16/17 21:31 Vancomycin HCl (Vanco rx to dose) 1 ea DAILY PRN MISC Per rx protocol 03/11/17 10:00 04/10/17 09:59 Vancomycin/Sodium Chloride 250 ml @ 166.667 mls/hr Q12HR@0600,1800 IVPB 03/16/17 18:00 03/21/17 17:59 03/17/17 08:44 Assessment/Plan Problem List: (1) Respiratory disorder with ventilator dependence Assessment & Plan: 71M with respiratory failure and ventilatory dependence. difficulty wean from vent. has had ET tube for near two weeks. no significant improvement and likely will need vent support for some time. tracheostomy indicated and recommended. -will plan for tracheostomy this Wednesday morning -unfortunately patient does not have POA, next of kin, or anyone to consent and he is unable to do so. two physician consent will be obtained by myself and Dr. Uriarte. -continue current care and management -will follow with recs. thank you for this consultation. ICD Codes: J98.9 - Respiratory disorder, unspecified; Z99.11 - Dependence on respirator [ventilator] status SNOMED: [id number], [id number] Status: not improved Trent Livingston Mar 17, 2017 17:06
[2017-03-17] MEDS: Dyna-Hex 2% Top Sol 2oz TOPIC SCH (20:44)
[2017-03-17] MEDS: Miralax 17gm pkt ORAL SCH (20:45)
[2017-03-18] VITALS (24 sets, daily range): BP systolic 89–142; BP diastolic 43–83
[2017-03-18] MEDS: LORazepam Inj 2mg/ml 1ml IV PRN (00:31)
[2017-03-18] MEDS: Meropenem 1gm in NS 55ml IVPB SCH ×3 (05:54→21:42)
[2017-03-18] MEDS: Vancomycin 750mg/NS 250ml IVPB SCH ×2 (05:54→17:34)
[2017-03-18 06:26] LABS: EOSINOPHILS % (AUTO) 3.8 % (0.0-3.0); HEMATOCRIT 33.3 % (42.0-52.0); HEMOGLOBIN 10.8 G/DL (14.2-18.0); LYMPHOCYTES % (AUTO) 27.1 % (20.0-45.0); MEAN CORPUSCULAR VOLUME 92 FL (80-99); MONOCYTES % (AUTO) 7.1 % (1.0-10.0); NEUTROPHILS % (AUTO) 60.9 % (45.0-75.0); PLATELET COUNT 502 K/UL (150-450); RED BLOOD COUNT 3.62 M/UL (4.70-6.10); RED CELL DISTRIBUTION WIDTH 13.4 % (11.6-14.8); WHITE BLOOD COUNT 10.7 K/UL (4.8-10.8)
[2017-03-18 06:58] LABS: ALANINE AMINOTRANSFERASE 43 U/L (12-78); ALBUMIN 1.9 G/DL (3.4-5.0); ALBUMIN/GLOBULIN RATIO 0.4 (1.0-2.7); ALKALINE PHOSPHATASE 104 U/L (46-116); ANION GAP 6 mmol/L (5-15); ASPARTATE AMINO TRANSFERASE 60 U/L (15-37); BILIRUBIN,TOTAL 0.4 MG/DL (0.2-1.0); BLOOD UREA NITROGEN 17 mg/dL (7-18); CARBON DIOXIDE 27 MMOL/L (21-32); CHLORIDE 110 MMOL/L (98-107); PHOSPHORUS 2.9 MG/DL (2.5-4.9); POTASSIUM 3.7 MMOL/L (3.5-5.1); SODIUM 143 MMOL/L (136-145)
[2017-03-18] MEDS: Pantoprazole Inj IVP SCH ×2 (08:33→21:00)
[2017-03-18] MEDS: Docusate 100mg/10ml Liq GT SCH ×2 (08:33→17:29)
[2017-03-18] MEDS: Aspirin Baby 81mg NG SCH (08:33)
[2017-03-18] MEDS: Heparin 5000 units/ml inj SUBQ SCH (08:41)
--- NOTE | 2017-03-18 10:32 | Diagnostic Imaging Report ---
Indication: Dyspnea Technique: One view of the chest Comparison: 03/17/2017 Findings: Less optimal inspiration currently. Stable positions of endotracheal tube, nasogastric tube, left arm PICC. Persistent elevation of the right hemidiaphragm, lower lung volume on the right than on the prior study. Persistent consolidation diffusely throughout the right lung persists. Left perihilar, basilar, retrocardiac consolidation and atelectasis persists. Allowing for differences in the degree of inspiration, no significant interim change Impression: Unchanged, over one day, findings as above.
--- NOTE | 2017-03-18 11:33 | Pulmonolgy Critical Care Note ---
Critical Care - Asmt/Plan Problems: (1) Respiratory distress (2) COPD (chronic obstructive pulmonary disease) (3) Healthcare associated bacterial pneumonia (4) halfway resident (5) Alzheimer disease Respiratory: monitor respiratory rate, adjust FIO2, CXR Cardiac: continue to monitor HR/BP Renal: F/U I&O, keep IV fluid Gastrointestinal: continue feedings/current rate Endocrine: check TSH, continue sliding scale insulin Hematologic: monitor H/H, transfuse if hgb<8.5 Neurologic: PRN Ativan, keep patient comfortable Affect: PRN ativan Prophylaxis: Protonix Notes Reviewed: telecommunications facility examiner, renal Discussed with: nurses, consultants, rifle case repairermanager of quality - Objective Last 24 Hour Vital Signs Date Time Temp Pulse Resp B/P (MAP) Pulse Ox O2 Delivery O2 Flow Rate FiO2 03/18/17 11:00 87 19 100/58 95 Mechanical Ventilator 35 03/18/17 10:45 89 21 35 03/18/17 10:00 89 16 94/51 95 Mechanical Ventilator 35 03/18/17 09:19 92 27 35 03/18/17 09:00 91 24 130/83 97 Mechanical Ventilator 35 03/18/17 08:34 88 100/63 03/18/17 08:00 98.7 91 25 100/63 96 Mechanical Ventilator 35 03/18/17 08:00 92 03/18/17 08:00 35 03/18/17 07:09 90 17 35 03/18/17 07:00 91 21 111/74 96 Mechanical Ventilator 35 03/18/17 06:00 90 22 102/69 96 Mechanical Ventilator 35 03/18/17 05:27 87 21 35 03/18/17 05:00 90 24 106/71 97 Mechanical Ventilator 35 03/18/17 04:00 35 03/18/17 04:00 95 03/18/17 04:00 98.5 93 22 111/79 95 Mechanical Ventilator 35 03/18/17 03:27 92 22 35 03/18/17 03:00 97 19 104/64 95 Mechanical Ventilator 35 03/18/17 02:00 95 25 103/65 96 Mechanical Ventilator 35 03/18/17 01:26 79 18 35 03/18/17 01:00 95 24 111/67 98 Mechanical Ventilator 35 03/18/17 00:00 93 03/18/17 00:00 35 03/18/17 00:00 98.1 93 28 99/66 96 Mechanical Ventilator 35 03/17/17 23:20 88 22 35 03/17/17 23:00 92 20 102/69 97 Mechanical Ventilator 35 03/17/17 22:00 93 24 146/118 96 Mechanical Ventilator 35 03/17/17 21:24 82 20 35 03/17/17 21:00 93 21 105/66 96 Mechanical Ventilator 35 03/17/17 20:45 92 111/72 03/17/17 20:00 92 03/17/17 20:00 98.7 92 25 111/72 95 Mechanical Ventilator 35 03/17/17 20:00 35 03/17/17 19:00 92 23 136/60 99 Mechanical Ventilator 35 03/17/17 18:54 91 22 35 03/17/17 18:00 97 33 97/53 99 Mechanical Ventilator 35 03/17/17 17:23 93 19 35 03/17/17 17:00 93 19 106/54 97 Mechanical Ventilator 35 03/17/17 16:00 83 03/17/17 16:00 98.5 93 28 95/56 95 Mechanical Ventilator 35 03/17/17 16:00 35 03/17/17 15:21 84 22 35 03/17/17 15:00 83 20 98/58 97 Mechanical Ventilator 35 03/17/17 15:00 20 03/17/17 14:00 83 25 95/61 99 Mechanical Ventilator 35 03/17/17 14:00 24 03/17/17 13:30 87 21 93/58 97 Mechanical Ventilator 35 03/17/17 13:18 86 19 35 03/17/17 13:00 82 24 100/59 97 Mechanical Ventilator 35 03/17/17 13:00 25 03/17/17 12:30 94 26 98/79 97 Mechanical Ventilator 35 03/17/17 12:00 93 03/17/17 12:00 31 03/17/17 12:00 35 03/17/17 12:00 98.8 93 23 98/79 98 Mechanical Ventilator 35 Status: awake Condition: critical HEENT: atraumatic Lungs: clear Heart: HR/BP stable, HR/BP unstable Abdomen: soft, non-tender, feeding tube Micro: Microbiology Date/Time Source Procedure Growth Status 03/15/17 14:25 Blood Blood Culture - Preliminary NO GROWTH AFTER 48 HOURS Resulted 03/15/17 14:25 Blood Blood Culture - Preliminary NO GROWTH AFTER 48 HOURS Resulted Critical Care - Subjective ROS Limited/Unobtainable: No ICU Day: 15 Intubation Day: 15 Interval Events: scheduled for trach in am FI02: 35 Vent Support Breath Rate: 16 Vent Support Mode: AC Vent Tidal Volume: 450 Sputum Amount: Small PEEP: 5.0 PIP: 33 Tube Feeding Amount: 55 I&O: Intake and Output 03/17/17 03/18/17 19:00 07:00 Intake Total 854.800 ml 770 ml Output Total 885 ml 925 ml Balance -30.200 ml -155 ml Free Water 150 ml IV Total 619.800 ml 110 ml Tube Feeding 55 ml 660 ml Other 30 ml Output Urine Total 885 ml 925 ml CXR: no change ET-Tube: 7.5 ET Position: 23 Labs: Laboratory Tests Test 03/18/17 05:00 03/18/17 07:55 White Blood Count 10.7 K/UL (4.8-10.8) Red Blood Count 3.62 M/UL (4.70-6.10) L Hemoglobin 10.8 G/DL (14.2-18.0) L Hematocrit 33.3 % (42.0-52.0) L Mean Corpuscular Volume 92 FL (80-99) Mean Corpuscular Hemoglobin 29.9 PG (27.0-31.0) Mean Corpuscular Hemoglobin Concent 32.5 G/DL (32.0-36.0) Red Cell Distribution Width 13.4 % (11.6-14.8) Platelet Count 502 K/UL (150-450) H Mean Platelet Volume 6.1 FL (6.5-10.1) L Neutrophils (%) (Auto) 60.9 % (45.0-75.0) Lymphocytes (%) (Auto) 27.1 % (20.0-45.0) Monocytes (%) (Auto) 7.1 % (1.0-10.0) Eosinophils (%) (Auto) 3.8 % (0.0-3.0) H Basophils (%) (Auto) 1.0 % (0.0-2.0) Sodium Level 143 MMOL/L (136-145) Potassium Level 3.7 MMOL/L (3.5-5.1) Chloride Level 110 MMOL/L (98-107) H Carbon Dioxide Level 27 MMOL/L (21-32) Anion Gap 6 mmol/L (5-15) Blood Urea Nitrogen 17 mg/dL (7-18) Creatinine 1.0 MG/DL (0.55-1.30) Estimat Glomerular Filtration Rate > 60 mL/min (>60) Glucose Level 82 MG/DL (74-106) Calcium Level 8.0 MG/DL (8.5-10.1) L Phosphorus Level 2.9 MG/DL (2.5-4.9) Magnesium Level 2.2 MG/DL (1.8-2.4) Total Bilirubin 0.4 MG/DL (0.2-1.0) Aspartate Amino Transf (AST/SGOT) 60 U/L (15-37) H Alanine Aminotransferase (ALT/SGPT) 43 U/L (12-78) Alkaline Phosphatase 104 U/L (46-116) Total Protein 7.0 G/DL (6.4-8.2) Albumin 1.9 G/DL (3.4-5.0) L Globulin 5.1 g/dL Albumin/Globulin Ratio 0.4 (1.0-2.7) L Arterial Blood pH 7.486 (7.350-7.450) Arterial Blood Partial Pressure CO2 33.4 mmHg (35.0-45.0) L Arterial Blood Partial Pressure O2 75.5 mmHg (75.0-100.0) Arterial Blood HCO3 25.2 mmol/L (22.0-26.0) Arterial Blood Oxygen Saturation 95.1 % (92.0-98.0) Arterial Blood Base Excess 2.3 Ulises Test Positive MARCELA SCHULZ Mar 18, 2017 11:33
--- NOTE | 2017-03-18 12:55 | General Progress Note ---
Assessment/Plan Status: unchanged Assessment/Plan 1. VDRF 2. Sepsis. 2. Healthcare-associated pneumonia (?) 3. Acute hypoxemic respiratory failure. 4. Acute anemia. 5. Hypokalemia. 6. Hypernatremia. 7. Urinary tract infection-healthcare related. 8. Gastrointestinal and deep vein thrombosis prophylaxis. 9. Abnormal Troponin PLAN: CURRENT MANAGEMENT Notes from cardiology, Nephrology, Pulmonary reviewed Poor Prognosis Active current ID management failed multiple attempts for extubation. will proceed with trach Subjective ROS Limited/Unobtainable: Yes Allergies: Coded Allergies: No Known Allergies (Unverified , 10/20/16) Objective Last 24 Hour Vital Signs Date Time Temp Pulse Resp B/P (MAP) Pulse Ox O2 Delivery O2 Flow Rate FiO2 03/18/17 12:00 35 03/18/17 11:00 87 19 100/58 95 Mechanical Ventilator 35 03/18/17 10:45 89 21 35 03/18/17 10:00 89 16 94/51 95 Mechanical Ventilator 35 03/18/17 09:19 92 27 35 03/18/17 09:00 91 24 130/83 97 Mechanical Ventilator 35 03/18/17 08:34 88 100/63 03/18/17 08:00 98.7 91 25 100/63 96 Mechanical Ventilator 35 03/18/17 08:00 92 03/18/17 08:00 35 03/18/17 07:09 90 17 35 03/18/17 07:00 91 21 111/74 96 Mechanical Ventilator 35 03/18/17 06:00 90 22 102/69 96 Mechanical Ventilator 35 03/18/17 05:27 87 21 35 03/18/17 05:00 90 24 106/71 97 Mechanical Ventilator 35 03/18/17 04:00 35 03/18/17 04:00 95 03/18/17 04:00 98.5 93 22 111/79 95 Mechanical Ventilator 35 03/18/17 03:27 92 22 35 03/18/17 03:00 97 19 104/64 95 Mechanical Ventilator 35 03/18/17 02:00 95 25 103/65 96 Mechanical Ventilator 35 03/18/17 01:26 79 18 35 03/18/17 01:00 95 24 111/67 98 Mechanical Ventilator 35 03/18/17 00:00 93 03/18/17 00:00 35 03/18/17 00:00 98.1 93 28 99/66 96 Mechanical Ventilator 35 03/17/17 23:20 88 22 35 03/17/17 23:00 92 20 102/69 97 Mechanical Ventilator 35 03/17/17 22:00 93 24 146/118 96 Mechanical Ventilator 35 03/17/17 21:24 82 20 35 03/17/17 21:00 93 21 105/66 96 Mechanical Ventilator 35 03/17/17 20:45 92 111/72 03/17/17 20:00 92 03/17/17 20:00 98.7 92 25 111/72 95 Mechanical Ventilator 35 03/17/17 20:00 35 03/17/17 19:00 92 23 136/60 99 Mechanical Ventilator 35 03/17/17 18:54 91 22 35 03/17/17 18:00 97 33 97/53 99 Mechanical Ventilator 35 03/17/17 17:23 93 19 35 03/17/17 17:00 93 19 106/54 97 Mechanical Ventilator 35 03/17/17 16:00 83 03/17/17 16:00 98.5 93 28 95/56 95 Mechanical Ventilator 35 03/17/17 16:00 35 03/17/17 15:21 84 22 35 03/17/17 15:00 83 20 98/58 97 Mechanical Ventilator 35 03/17/17 15:00 20 03/17/17 14:00 83 25 95/61 99 Mechanical Ventilator 35 03/17/17 14:00 24 03/17/17 13:30 87 21 93/58 97 Mechanical Ventilator 35 03/17/17 13:18 86 19 35 03/17/17 13:00 82 24 100/59 97 Mechanical Ventilator 35 03/17/17 13:00 25 Intake and Output 03/17/17 03/18/17 19:00 07:00 Intake Total 854.800 ml 770 ml Output Total 885 ml 925 ml Balance -30.200 ml -155 ml Free Water 150 ml IV Total 619.800 ml 110 ml Tube Feeding 55 ml 660 ml Other 30 ml Output Urine Total 885 ml 925 ml Laboratory Tests 03/18/17 05:00: White Blood Count 10.7, Red Blood Count 3.62L, Hemoglobin 10.8L, Hematocrit 33.3L, Mean Corpuscular Volume 92, Mean Corpuscular Hemoglobin 29.9, Mean Corpuscular Hemoglobin Concent 32.5, Red Cell Distribution Width 13.4, Platelet Count 502H, Mean Platelet Volume 6.1L, Neutrophils (%) (Auto) 60.9, Lymphocytes (%) (Auto) 27.1, Monocytes (%) (Auto) 7.1, Eosinophils (%) (Auto) 3.8H, Basophils (%) (Auto) 1.0, Sodium Level 143, Potassium Level 3.7, Chloride Level 110H, Carbon Dioxide Level 27, Anion Gap 6, Blood Urea Nitrogen 17, Creatinine 1.0, Estimat Glomerular Filtration Rate > 60, Glucose Level 82, Calcium Level 8.0L, Phosphorus Level 2.9, Magnesium Level 2.2, Total Bilirubin 0.4, Aspartate Amino Transf (AST/SGOT) 60H, Alanine Aminotransferase (ALT/SGPT) 43, Alkaline Phosphatase 104, Total Protein 7.0, Albumin 1.9L, Globulin 5.1, Albumin/ Globulin Ratio 0.4L 03/18/17 07:55: Arterial Blood pH 7.486H, Arterial Blood Partial Pressure CO2 33.4L, Arterial Blood Partial Pressure O2 75.5, Arterial Blood HCO3 25.2, Arterial Blood Oxygen Saturation 95.1, Arterial Blood Base Excess 2.3, Ulises Test Positive 03/18/17 12:05: Prothrombin Time [Pending], Prothromb Time International Ratio [Pending], Activated Partial Thromboplast Time [Pending] Height (Feet): 5 Height (Inches): 9.00 Weight (Pounds): 154 General Appearance: no apparent distress, other - limited eval. as patient not following commands EENT: other - limited eval. as patient not following commands Neck: supple Cardiovascular: tachycardia Respiratory/Chest: rhonchi - bilaterally Abdomen: soft Extremities: other - limited eval. as patient not following commands Neurologic: plastic card grader cardroom II-XII grossly normal Colton Charles MD Mar 18, 2017 12:55
--- NOTE | 2017-03-18 14:51 | General Surgery Progress Note ---
General Surgery-Progress Note Subjective Additional Comments no significant improvement Objective Last 24 Hour Vital Signs Date Time Temp Pulse Resp B/P (MAP) Pulse Ox O2 Delivery O2 Flow Rate FiO2 03/18/17 14:00 90 18 118/53 97 Mechanical Ventilator 35 03/18/17 13:32 89 26 35 03/18/17 13:00 90 27 118/43 97 Mechanical Ventilator 35 03/18/17 12:00 98.2 89 21 89/60 97 Mechanical Ventilator 35 03/18/17 12:00 89 03/18/17 12:00 35 03/18/17 11:00 87 19 100/58 95 Mechanical Ventilator 35 03/18/17 10:45 89 21 35 03/18/17 10:00 89 16 94/51 95 Mechanical Ventilator 35 03/18/17 09:19 92 27 35 03/18/17 09:00 91 24 130/83 97 Mechanical Ventilator 35 03/18/17 08:34 88 100/63 03/18/17 08:00 98.7 91 25 100/63 96 Mechanical Ventilator 35 03/18/17 08:00 92 03/18/17 08:00 35 03/18/17 07:09 90 17 35 03/18/17 07:00 91 21 111/74 96 Mechanical Ventilator 35 03/18/17 06:00 90 22 102/69 96 Mechanical Ventilator 35 03/18/17 05:27 87 21 35 03/18/17 05:00 90 24 106/71 97 Mechanical Ventilator 35 03/18/17 04:00 35 03/18/17 04:00 95 03/18/17 04:00 98.5 93 22 111/79 95 Mechanical Ventilator 35 03/18/17 03:27 92 22 35 03/18/17 03:00 97 19 104/64 95 Mechanical Ventilator 35 03/18/17 02:00 95 25 103/65 96 Mechanical Ventilator 35 03/18/17 01:26 79 18 35 03/18/17 01:00 95 24 111/67 98 Mechanical Ventilator 35 03/18/17 00:00 93 03/18/17 00:00 35 03/18/17 00:00 98.1 93 28 99/66 96 Mechanical Ventilator 35 03/17/17 23:20 88 22 35 03/17/17 23:00 92 20 102/69 97 Mechanical Ventilator 35 03/17/17 22:00 93 24 146/118 96 Mechanical Ventilator 35 03/17/17 21:24 82 20 35 03/17/17 21:00 93 21 105/66 96 Mechanical Ventilator 35 03/17/17 20:45 92 111/72 03/17/17 20:00 92 03/17/17 20:00 98.7 92 25 111/72 95 Mechanical Ventilator 35 03/17/17 20:00 35 03/17/17 19:00 92 23 136/60 99 Mechanical Ventilator 35 03/17/17 18:54 91 22 35 03/17/17 18:00 97 33 97/53 99 Mechanical Ventilator 35 03/17/17 17:23 93 19 35 03/17/17 17:00 93 19 106/54 97 Mechanical Ventilator 35 03/17/17 16:00 83 03/17/17 16:00 98.5 93 28 95/56 95 Mechanical Ventilator 35 03/17/17 16:00 35 03/17/17 15:21 84 22 35 03/17/17 15:00 83 20 98/58 97 Mechanical Ventilator 35 03/17/17 15:00 20 I&O Intake and Output 03/17/17 03/18/17 19:00 07:00 Intake Total 854.800 ml 770 ml Output Total 885 ml 925 ml Balance -30.200 ml -155 ml Free Water 150 ml IV Total 619.800 ml 110 ml Tube Feeding 55 ml 660 ml Other 30 ml Output Urine Total 885 ml 925 ml Respiratory: other - on vent with ett Laboratory Tests Test 03/18/17 05:00 03/18/17 07:55 03/18/17 12:05 White Blood Count 10.7 K/UL (4.8-10.8) Red Blood Count 3.62 M/UL (4.70-6.10) L Hemoglobin 10.8 G/DL (14.2-18.0) L Hematocrit 33.3 % (42.0-52.0) L Mean Corpuscular Volume 92 FL (80-99) Mean Corpuscular Hemoglobin 29.9 PG (27.0-31.0) Mean Corpuscular Hemoglobin Concent 32.5 G/DL (32.0-36.0) Red Cell Distribution Width 13.4 % (11.6-14.8) Platelet Count 502 K/UL (150-450) H Mean Platelet Volume 6.1 FL (6.5-10.1) L Neutrophils (%) (Auto) 60.9 % (45.0-75.0) Lymphocytes (%) (Auto) 27.1 % (20.0-45.0) Monocytes (%) (Auto) 7.1 % (1.0-10.0) Eosinophils (%) (Auto) 3.8 % (0.0-3.0) H Basophils (%) (Auto) 1.0 % (0.0-2.0) Sodium Level 143 MMOL/L (136-145) Potassium Level 3.7 MMOL/L (3.5-5.1) Chloride Level 110 MMOL/L (98-107) H Carbon Dioxide Level 27 MMOL/L (21-32) Anion Gap 6 mmol/L (5-15) Blood Urea Nitrogen 17 mg/dL (7-18) Creatinine 1.0 MG/DL (0.55-1.30) Estimat Glomerular Filtration Rate > 60 mL/min (>60) Glucose Level 82 MG/DL (74-106) Calcium Level 8.0 MG/DL (8.5-10.1) L Phosphorus Level 2.9 MG/DL (2.5-4.9) Magnesium Level 2.2 MG/DL (1.8-2.4) Total Bilirubin 0.4 MG/DL (0.2-1.0) Aspartate Amino Transf (AST/SGOT) 60 U/L (15-37) H Alanine Aminotransferase (ALT/SGPT) 43 U/L (12-78) Alkaline Phosphatase 104 U/L (46-116) Total Protein 7.0 G/DL (6.4-8.2) Albumin 1.9 G/DL (3.4-5.0) L Globulin 5.1 g/dL Albumin/Globulin Ratio 0.4 (1.0-2.7) L Arterial Blood pH 7.486 (7.350-7.450) Arterial Blood Partial Pressure CO2 33.4 mmHg (35.0-45.0) L Arterial Blood Partial Pressure O2 75.5 mmHg (75.0-100.0) Arterial Blood HCO3 25.2 mmol/L (22.0-26.0) Arterial Blood Oxygen Saturation 95.1 % (92.0-98.0) Arterial Blood Base Excess 2.3 Ulises Test Positive Prothrombin Time 10.7 SEC (9.30-11.50) Prothromb Time International Ratio 1.0 (0.9-1.1) Activated Partial Thromboplast Time 28 SEC (23-33) Plan Problems: (1) Respiratory disorder with ventilator dependence Assessment & Plan: 71M with respiratory failure and ventilatory dependence. difficulty wean from vent. has had ET tube for near two weeks. no significant improvement and likely will need vent support for some time. tracheostomy indicated and recommended. -will plan for tracheostomy tomorrow -unfortunately patient does not have POA, next of kin, or anyone to consent and he is unable to do so. two physician consent will be obtained by myself and Dr. Uriarte. -continue current care and management -will follow with recs. thank you for this consultation. Trent Livingston Mar 18, 2017 14:51
--- NOTE | 2017-03-18 14:53 | Pre-Procedure Note/Attestation ---
Pre-Procedure Note/Attestation Complete Prior to Procedure Procedure Narrative: respiratory failure requiring prolonged ventilatory support. Indications for Procedure Pre-Operative Diagnosis: tracheostomy Attestation I attest that I discussed the nature of the procedure; its benefits; risks and complications; and alternatives (and the risks and benefits of such alternatives ), prior to the procedure, with the patient (or the patient's legal maintenance representative). I attest that, if there was a reasonable possibility of needing a blood transfusion, the patient (or the patient's legal maintenance representative) was given the [facility] standardized written summary, pursuant to the [place] [employer] Blood Safety Act ([place] Health and Safety Code # 1645, as amended). I attest that I re-evaluated the patient just prior to the surgery and that there has been no change in the patient's H&P, except as documented below: patient critically ill and currently cannot communicate. no next of kin or POA. no family that we know of. two physician consent obtained for medically necessary, indicated, and recommended procedure. Trent Livingston Mar 18, 2017 14:53
[2017-03-18] MEDS ORDERED: Phytonadione 10 MG in D5W 55 ML IVPB ONE (15:00)
--- NOTE | 2017-03-18 15:03 | Anethesia Preoperative Eval ---
Anesthesia Pre-op PMH/ROS General Date of Evaluation: Mar 18, 2017 Time of Evaluation: 12:26 Anesthesiologist: Madisyn ASA Score: ASA 4 Mallampati Score Class I : Soft palate, uvula, fauces, pillars visible Class II: Soft palate, uvula, fauces visible Class III: Soft palate, base of uvula visible Class IV: Only hard plate visible Mallampati Classification: Class III Surgeon: Miki Diagnosis: Ventillatory Failure Surgical Procedure: Tracheostomy Anesthesia History: none Social History: smoking, current smoker Family History: no anesthesia problems Allergies: Coded Allergies: No Known Allergies (Unverified , 10/20/16) Medications: see eMAR Past Medical History Cardiovascular: Reports: HTN Pulmonary: Reports: COPD Gastrointestinal/Genitourinary: Reports: GERD - Hiatl Hernia HEENT: Reports: cataract (L), cataract (R) Hematology/Immune: Reports: anemia Musculoskeletal/Integumentary: Reports: other - Contractures Anesthesia Pre-op Phys. Exam Physician Exam Last Vital Signs Date Time Temp Pulse Resp B/P (MAP) Pulse Ox O2 Delivery O2 Flow Rate FiO2 03/18/17 14:00 90 18 118/53 97 Mechanical Ventilator 35 03/18/17 12:00 98.2 Constitutional: NAD Neurologic: CN 2-12 intact Cardiovascular: RRR Respiratory: CTA Gastrointestinal: S/NT/ND Airway Exam Mallampati Score: Class III MO: limited ROM: limited Teeth: missing Anesthesia Pre-op A/P Labs Hematology Test 03/18/17 05:00 White Blood Count 10.7 K/UL (4.8-10.8) Red Blood Count 3.62 M/UL (4.70-6.10) L Hemoglobin 10.8 G/DL (14.2-18.0) L Hematocrit 33.3 % (42.0-52.0) L Mean Corpuscular Volume 92 FL (80-99) Mean Corpuscular Hemoglobin 29.9 PG (27.0-31.0) Mean Corpuscular Hemoglobin Concent 32.5 G/DL (32.0-36.0) Red Cell Distribution Width 13.4 % (11.6-14.8) Platelet Count 502 K/UL (150-450) H Mean Platelet Volume 6.1 FL (6.5-10.1) L Neutrophils (%) (Auto) 60.9 % (45.0-75.0) Lymphocytes (%) (Auto) 27.1 % (20.0-45.0) Monocytes (%) (Auto) 7.1 % (1.0-10.0) Eosinophils (%) (Auto) 3.8 % (0.0-3.0) H Basophils (%) (Auto) 1.0 % (0.0-2.0) Coagulation Test 03/18/17 12:05 Prothrombin Time 10.7 SEC (9.30-11.50) Prothromb Time International Ratio 1.0 (0.9-1.1) Activated Partial Thromboplast Time 28 SEC (23-33) Chemistry Test 03/18/17 05:00 Sodium Level 143 MMOL/L (136-145) Potassium Level 3.7 MMOL/L (3.5-5.1) Chloride Level 110 MMOL/L (98-107) H Carbon Dioxide Level 27 MMOL/L (21-32) Anion Gap 6 mmol/L (5-15) Blood Urea Nitrogen 17 mg/dL (7-18) Creatinine 1.0 MG/DL (0.55-1.30) Estimat Glomerular Filtration Rate > 60 mL/min (>60) Glucose Level 82 MG/DL (74-106) Calcium Level 8.0 MG/DL (8.5-10.1) L Phosphorus Level 2.9 MG/DL (2.5-4.9) Magnesium Level 2.2 MG/DL (1.8-2.4) Total Bilirubin 0.4 MG/DL (0.2-1.0) Aspartate Amino Transf (AST/SGOT) 60 U/L (15-37) H Alanine Aminotransferase (ALT/SGPT) 43 U/L (12-78) Alkaline Phosphatase 104 U/L (46-116) Total Protein 7.0 G/DL (6.4-8.2) Albumin 1.9 G/DL (3.4-5.0) L Globulin 5.1 g/dL Albumin/Globulin Ratio 0.4 (1.0-2.7) L Risk Assessment & Plan Assessment: ASA 4 Plan: GA Status Change Before Surgery: No James Mars MD Mar 18, 2017 15:03
--- NOTE | 2017-03-18 15:39 | Nephrology Progress Note ---
Assessment/Plan Problem List: (1) Respiratory disorder with ventilator dependence (2) UTI (urinary tract infection) (3) Hypernatremia (4) Acute renal failure Assessment - Na 148 - Acute renal failure cr 1.1 to 2.4 to 2.1 to 1.9 to 1.5 WNL - Chronic paranoid schizophrenia - Respiratory disorder with ventilator dependence - Healthcare associated bacterial pneumonia - UTI (urinary tract infection) - SIRS (systemic inflammatory response syndrome) - Alzheimer disease - Hypokalemia - Hypernatremia / due to water deficit improving with D5 resolving Plan plan: due trach K supplement as needed Water NGT Pulm support Antibiotics monitor renal parameters per orders Subjective ROS Limited/Unobtainable: Yes Objective Objective Last 24 Hour Vital Signs Date Time Temp Pulse Resp B/P (MAP) Pulse Ox O2 Delivery O2 Flow Rate FiO2 03/18/17 14:00 90 18 118/53 97 Mechanical Ventilator 35 03/18/17 13:32 89 26 35 03/18/17 13:00 90 27 118/43 97 Mechanical Ventilator 35 03/18/17 12:00 98.2 89 21 89/60 97 Mechanical Ventilator 35 03/18/17 12:00 89 03/18/17 12:00 35 03/18/17 11:00 87 19 100/58 95 Mechanical Ventilator 35 03/18/17 10:45 89 21 35 03/18/17 10:00 89 16 94/51 95 Mechanical Ventilator 35 03/18/17 09:19 92 27 35 03/18/17 09:00 91 24 130/83 97 Mechanical Ventilator 35 03/18/17 08:34 88 100/63 03/18/17 08:00 98.7 91 25 100/63 96 Mechanical Ventilator 35 03/18/17 08:00 92 03/18/17 08:00 35 03/18/17 07:09 90 17 35 03/18/17 07:00 91 21 111/74 96 Mechanical Ventilator 35 03/18/17 06:00 90 22 102/69 96 Mechanical Ventilator 35 03/18/17 05:27 87 21 35 03/18/17 05:00 90 24 106/71 97 Mechanical Ventilator 35 03/18/17 04:00 35 03/18/17 04:00 95 03/18/17 04:00 98.5 93 22 111/79 95 Mechanical Ventilator 35 03/18/17 03:27 92 22 35 03/18/17 03:00 97 19 104/64 95 Mechanical Ventilator 35 03/18/17 02:00 95 25 103/65 96 Mechanical Ventilator 35 03/18/17 01:26 79 18 35 03/18/17 01:00 95 24 111/67 98 Mechanical Ventilator 35 03/18/17 00:00 93 03/18/17 00:00 35 03/18/17 00:00 98.1 93 28 99/66 96 Mechanical Ventilator 35 03/17/17 23:20 88 22 35 03/17/17 23:00 92 20 102/69 97 Mechanical Ventilator 35 03/17/17 22:00 93 24 146/118 96 Mechanical Ventilator 35 03/17/17 21:24 82 20 35 03/17/17 21:00 93 21 105/66 96 Mechanical Ventilator 35 03/17/17 20:45 92 111/72 03/17/17 20:00 92 03/17/17 20:00 98.7 92 25 111/72 95 Mechanical Ventilator 35 03/17/17 20:00 35 03/17/17 19:00 92 23 136/60 99 Mechanical Ventilator 35 03/17/17 18:54 91 22 35 03/17/17 18:00 97 33 97/53 99 Mechanical Ventilator 35 03/17/17 17:23 93 19 35 03/17/17 17:00 93 19 106/54 97 Mechanical Ventilator 35 03/17/17 16:00 83 03/17/17 16:00 98.5 93 28 95/56 95 Mechanical Ventilator 35 03/17/17 16:00 35 Intake and Output 03/17/17 03/18/17 19:00 07:00 Intake Total 854.800 ml 770 ml Output Total 885 ml 925 ml Balance -30.200 ml -155 ml Free Water 150 ml IV Total 619.800 ml 110 ml Tube Feeding 55 ml 660 ml Other 30 ml Output Urine Total 885 ml 925 ml Laboratory Tests 03/18/17 05:00: White Blood Count 10.7, Red Blood Count 3.62L, Hemoglobin 10.8L, Hematocrit 33.3L, Mean Corpuscular Volume 92, Mean Corpuscular Hemoglobin 29.9, Mean Corpuscular Hemoglobin Concent 32.5, Red Cell Distribution Width 13.4, Platelet Count 502H, Mean Platelet Volume 6.1L, Neutrophils (%) (Auto) 60.9, Lymphocytes (%) (Auto) 27.1, Monocytes (%) (Auto) 7.1, Eosinophils (%) (Auto) 3.8H, Basophils (%) (Auto) 1.0, Sodium Level 143, Potassium Level 3.7, Chloride Level 110H, Carbon Dioxide Level 27, Anion Gap 6, Blood Urea Nitrogen 17, Creatinine 1.0, Estimat Glomerular Filtration Rate > 60, Glucose Level 82, Calcium Level 8.0L, Phosphorus Level 2.9, Magnesium Level 2.2, Total Bilirubin 0.4, Aspartate Amino Transf (AST/SGOT) 60H, Alanine Aminotransferase (ALT/SGPT) 43, Alkaline Phosphatase 104, Total Protein 7.0, Albumin 1.9L, Globulin 5.1, Albumin/ Globulin Ratio 0.4L 03/18/17 07:55: Arterial Blood pH 7.486H, Arterial Blood Partial Pressure CO2 33.4L, Arterial Blood Partial Pressure O2 75.5, Arterial Blood HCO3 25.2, Arterial Blood Oxygen Saturation 95.1, Arterial Blood Base Excess 2.3, Ulises Test Positive 03/18/17 12:05: Prothrombin Time 10.7, Prothromb Time International Ratio 1.0, Activated Partial Thromboplast Time 28 Height (Feet): 5 Height (Inches): 9.00 Weight (Pounds): 154 General Appearance: no apparent distress Objective no change CHACHA NUNES Mar 18, 2017 15:39
--- NOTE | 2017-03-18 16:17 | Infectious Diseases Prog Note ---
Assessment/Plan Assessment/Plan ASSESSMENT: The patient is a 71-year-old male with: Aerococcus urinae bacteremia- ?source UTI however Ucx neg; r/o endocarditis as has been associated with endocarditis in the elderly. -03/03 Bcx 1/ +; 03/06 NTD x4 -Elevated CRp 21.0 03/06 -03/03 TTE: no vegetations, no significant valve abnormalities 03/16 CONS bacteremia-likely contaminant 03/12 03/16, 03/15 Bccx NTD x4 Sepsis- ongoing- fever/leukocytosis improving -CT chest/abd/p w/: Somewhat limited exam due to motion artifact. Right upper lobe, right lower lobe, and left lower lobe atelectasis and consolidation. Likely pneumonia, otherwise nonspecific. Elevated right hemidiaphragm. Small left pleural effusion. Satisfactory positions of endotracheal and nasogastric tubes. No acute abdominal process. Degenerative lumbar spondylosis. Colonic interposition incidentally noted. Colonic diverticulosis. Beltran catheter. Prominent prostate. Degenerative changes of the right hip with heterotopic ossification Leukocytosis , recurrent- resolved FEvers improving- r/o empyema, intrabdominal source HCAP Scx : ESBL EColi ; now new infiltrate- -sp cx 03/11 +1 C. albicans(colonizer) -CXR 03/11: persistent extensive right upper lobe infiltrate. Infiltrate and pleural fluid in the left mid and lower lung persist, are probably unchanged allowing for slightly greater lung volumes on the current exam. -CXR 03/09: New right pulmonary infiltrate. Possible urinary tract infection 03/04 ucx neg; repeat u/a 03/11 u/a no pyuria Elevated inflammatory markers -ESR 94, CRP 14.2 03/11> 8 03/14; improving Influenza negative AST Elevation s/p PICC line 03/09 Positive cardiac enzymes. Acute renal failure, improving Dysphagia. Osteoarthritis. Hypertension. COPD. History of GERD History of H. pylori in the past Dementia with psychosis PLAN: continue IV Merrem d# / for ESBL PNA and aerococcus bacteremia and empiric IV Vancomycin #8/ given new infiltrate 03/15 SP Dapto x1 03/08 SP vancomycin d# 5 03/07 SP Zosyn d# 4 -may need to remove PICC line if recurrent ConS bacteremia or persistent fevers with no obvious source. f.u repeat Bcx Monitor CBC/CMP. Monitor cultures (blood ) Monitor chest x-ray. Monitor renal function. Subjective Allergies: Coded Allergies: No Known Allergies (Unverified , 10/20/16) Subjective afebrile in Almost 36hrs mild leukocytosis repeat Bcx NTD onging discussion with ethics committe regarding goals of care Objective Vital Signs Last 24 Hour Vital Signs Date Time Temp Pulse Resp B/P (MAP) Pulse Ox O2 Delivery O2 Flow Rate FiO2 03/18/17 16:00 35 03/18/17 15:00 89 30 109/55 95 Mechanical Ventilator 35 03/18/17 14:00 90 18 118/53 97 Mechanical Ventilator 35 03/18/17 13:32 89 26 35 03/18/17 13:00 90 27 118/43 97 Mechanical Ventilator 35 03/18/17 12:00 98.2 89 21 89/60 97 Mechanical Ventilator 35 03/18/17 12:00 89 03/18/17 12:00 35 03/18/17 11:00 87 19 100/58 95 Mechanical Ventilator 35 03/18/17 10:45 89 21 35 03/18/17 10:00 89 16 94/51 95 Mechanical Ventilator 35 03/18/17 09:19 92 27 35 03/18/17 09:00 91 24 130/83 97 Mechanical Ventilator 35 03/18/17 08:34 88 100/63 03/18/17 08:00 98.7 91 25 100/63 96 Mechanical Ventilator 35 03/18/17 08:00 92 03/18/17 08:00 35 03/18/17 07:09 90 17 35 03/18/17 07:00 91 21 111/74 96 Mechanical Ventilator 35 03/18/17 06:00 90 22 102/69 96 Mechanical Ventilator 35 03/18/17 05:27 87 21 35 03/18/17 05:00 90 24 106/71 97 Mechanical Ventilator 35 03/18/17 04:00 35 03/18/17 04:00 95 03/18/17 04:00 98.5 93 22 111/79 95 Mechanical Ventilator 35 03/18/17 03:27 92 22 35 03/18/17 03:00 97 19 104/64 95 Mechanical Ventilator 35 03/18/17 02:00 95 25 103/65 96 Mechanical Ventilator 35 03/18/17 01:26 79 18 35 03/18/17 01:00 95 24 111/67 98 Mechanical Ventilator 35 03/18/17 00:00 93 03/18/17 00:00 35 03/18/17 00:00 98.1 93 28 99/66 96 Mechanical Ventilator 35 03/17/17 23:20 88 22 35 03/17/17 23:00 92 20 102/69 97 Mechanical Ventilator 35 03/17/17 22:00 93 24 146/118 96 Mechanical Ventilator 35 03/17/17 21:24 82 20 35 03/17/17 21:00 93 21 105/66 96 Mechanical Ventilator 35 03/17/17 20:45 92 111/72 03/17/17 20:00 92 03/17/17 20:00 98.7 92 25 111/72 95 Mechanical Ventilator 35 03/17/17 20:00 35 03/17/17 19:00 92 23 136/60 99 Mechanical Ventilator 35 03/17/17 18:54 91 22 35 03/17/17 18:00 97 33 97/53 99 Mechanical Ventilator 35 03/17/17 17:23 93 19 35 03/17/17 17:00 93 19 106/54 97 Mechanical Ventilator 35 Height (Feet): 5 Height (Inches): 9.00 Weight (Pounds): 154 Objective General Appearance: other - Intubated, limited eval as patient is not following commands EENT: PERRL/EOMI Neck: supple Cardiovascular: tachycardia Respiratory/Chest: rhonchi - bilaterally Abdomen: soft Extremities: other - cachectic appearance Neurologic: other - limited eval as patient is not following commands Laboratory Tests Test 03/18/17 05:00 03/18/17 07:55 03/18/17 12:05 White Blood Count 10.7 K/UL (4.8-10.8) Red Blood Count 3.62 M/UL (4.70-6.10) L Hemoglobin 10.8 G/DL (14.2-18.0) L Hematocrit 33.3 % (42.0-52.0) L Mean Corpuscular Volume 92 FL (80-99) Mean Corpuscular Hemoglobin 29.9 PG (27.0-31.0) Mean Corpuscular Hemoglobin Concent 32.5 G/DL (32.0-36.0) Red Cell Distribution Width 13.4 % (11.6-14.8) Platelet Count 502 K/UL (150-450) H Mean Platelet Volume 6.1 FL (6.5-10.1) L Neutrophils (%) (Auto) 60.9 % (45.0-75.0) Lymphocytes (%) (Auto) 27.1 % (20.0-45.0) Monocytes (%) (Auto) 7.1 % (1.0-10.0) Eosinophils (%) (Auto) 3.8 % (0.0-3.0) H Basophils (%) (Auto) 1.0 % (0.0-2.0) Sodium Level 143 MMOL/L (136-145) Potassium Level 3.7 MMOL/L (3.5-5.1) Chloride Level 110 MMOL/L (98-107) H Carbon Dioxide Level 27 MMOL/L (21-32) Anion Gap 6 mmol/L (5-15) Blood Urea Nitrogen 17 mg/dL (7-18) Creatinine 1.0 MG/DL (0.55-1.30) Estimat Glomerular Filtration Rate > 60 mL/min (>60) Glucose Level 82 MG/DL (74-106) Calcium Level 8.0 MG/DL (8.5-10.1) L Phosphorus Level 2.9 MG/DL (2.5-4.9) Magnesium Level 2.2 MG/DL (1.8-2.4) Total Bilirubin 0.4 MG/DL (0.2-1.0) Aspartate Amino Transf (AST/SGOT) 60 U/L (15-37) H Alanine Aminotransferase (ALT/SGPT) 43 U/L (12-78) Alkaline Phosphatase 104 U/L (46-116) Total Protein 7.0 G/DL (6.4-8.2) Albumin 1.9 G/DL (3.4-5.0) L Globulin 5.1 g/dL Albumin/Globulin Ratio 0.4 (1.0-2.7) L Arterial Blood pH 7.486 (7.350-7.450) Arterial Blood Partial Pressure CO2 33.4 mmHg (35.0-45.0) L Arterial Blood Partial Pressure O2 75.5 mmHg (75.0-100.0) Arterial Blood HCO3 25.2 mmol/L (22.0-26.0) Arterial Blood Oxygen Saturation 95.1 % (92.0-98.0) Arterial Blood Base Excess 2.3 Ulises Test Positive Prothrombin Time 10.7 SEC (9.30-11.50) Prothromb Time International Ratio 1.0 (0.9-1.1) Activated Partial Thromboplast Time 28 SEC (23-33) Current Medications Medications (Trade) Dose Ordered Sig/Ant Route PRN Reason Start Time Stop Time Status Last Admin Dose Admin Acetaminophen (Tylenol) 650 mg Q4H PRN ORAL Mild Pain/Temp > 100.5 03/04/17 08:45 04/03/17 08:44 03/13/17 21:06 Albuterol/ Ipratropium (Albuterol/ Ipratropium) 3 ml Q6HRT HHN 03/09/17 13:00 03/14/17 23:59 03/13/17 19:51 Artificial Tears (Akwa-Tears) 2 drop Q2H PRN BOTH EYES Dry Eyes 03/09/17 09:15 04/08/17 09:14 03/13/17 08:49 Carvedilol (Coreg) 3.125 mg EVERY 12 HOURS PEG 03/13/17 09:00 04/12/17 08:59 03/18/17 08:34 Chlorhexidine Gluconate (Lisa-Hex 2%) 1 applic DAILY@2000 TOPIC 03/09/17 20:00 04/08/17 19:59 03/17/17 20:44 Docusate Sodium (Colace) 100 mg BID GT 03/11/17 21:30 04/10/17 21:29 03/18/17 08:33 Lorazepam (Ativan 2mg/ml 1ml) 2 mg Q4H PRN IV For Anxiety 03/17/17 12:00 03/24/17 11:59 03/18/17 00:31 Meropenem 1 gm/ Sodium Chloride 55 ml @ 110 mls/hr Q8HR@0600,1400,2200 IVPB 03/14/17 16:00 03/21/17 15:59 03/18/17 13:46 Morphine Sulfate (Morphine Sulfate) 2 mg Q4H PRN IVP Severe Pain (Pain Scale 7-10) 03/17/17 12:00 03/24/17 11:59 Pantoprazole (Protonix) 40 mg Q12HR IVP 03/04/17 21:00 04/03/17 20:59 03/18/17 08:33 Polyethylene Glycol (Miralax) 17 gm BEDTIME ORAL 03/11/17 21:30 04/10/17 21:29 03/17/17 20:45 Vancomycin HCl (Vanco rx to dose) 1 ea DAILY PRN MISC Per rx protocol 03/11/17 10:00 04/10/17 09:59 Vancomycin/Sodium Chloride 250 ml @ 166.667 mls/hr Q12HR@0600,1800 IVPB 03/16/17 18:00 03/21/17 17:59 03/18/17 05:54 Alise Polanco M.D. Mar 18, 2017 16:17
--- NOTE | 2017-03-18 19:35 | General Progress Note ---
Assessment/Plan Assessment/Plan Assessment/Plan #. Leukocytosis 2/2 Sepsis. ID following, on abx --> improving, continue to follow #. Thrombocytosis likely reactive process #. Anemia of chronic disease. Hgb goal above 7. Transfuse as needed, work up has been reviewed #. COPD #. Hypokalemia. #. Hypernatremia. #. Continue DVT prophylaxis with heparin subcutaneous and PPI Subjective Constitutional: Denies: no symptoms, chills, diaphoresis, fever, malaise, weakness, other HEENT: Denies: no symptoms, eye pain, blurred vision, tearing, double vision, ear pain, ear discharge, nose pain, nose congestion, throat pain, throat swelling, mouth pain, mouth swelling, other Cardiovascular: Denies: no symptoms, chest pain, edema, irregular heart rate, lightheadedness, palpitations, syncope, other Respiratory: Denies: no symptoms, cough, orthopnea, shortness of breath, SOB with excertion, SOB at rest, sputum, stridor, wheezing, other Gastrointestinal/Abdominal: Denies: no symptoms, abdomen distended, abdominal pain, black stools, tarry stools, blood in stool, constipated, diarrhea, difficulty swallowing, nausea, poor appetite, poor fluid intake, rectal bleeding , vomiting, other Genitourinary: Denies: no symptoms, burning, discharge, frequency, flank pain, hematuria, incontinence, pain, urgency, other Neurologic/Psychiatric: Denies: no symptoms, anxiety, depressed, emotional problems, headache, numbness, paresthesia, pre-existing deficit, seizure, tingling, tremors, weakness, other Endocrine: Denies: no symptoms, excessive sweating, flushing, intolerance to cold, intolerance to heat, increased hunger, increased thirst, increased urine, unexplained weight gain, unexplained weight loss, other Hematologic/Lymphatic: Denies: no symptoms, anemia, easy bleeding, easy bruising, other Allergies: Coded Allergies: No Known Allergies (Unverified , 10/20/16) Subjective NAD, no fevers or chills Objective Last 24 Hour Vital Signs Date Time Temp Pulse Resp B/P (MAP) Pulse Ox O2 Delivery O2 Flow Rate FiO2 03/18/17 19:00 90 24 142/62 96 Mechanical Ventilator 35 03/18/17 18:00 91 25 141/62 96 Mechanical Ventilator 35 03/18/17 17:24 87 20 35 03/18/17 17:00 87 21 130/59 96 Mechanical Ventilator 35 03/18/17 16:00 90 03/18/17 16:00 35 03/18/17 16:00 97.9 89 22 132/59 95 Mechanical Ventilator 35 03/18/17 15:15 88 27 35 03/18/17 15:00 89 30 109/55 95 Mechanical Ventilator 35 03/18/17 14:00 90 18 118/53 97 Mechanical Ventilator 35 03/18/17 13:32 89 26 35 03/18/17 13:00 90 27 118/43 97 Mechanical Ventilator 35 03/18/17 12:00 98.2 89 21 89/60 97 Mechanical Ventilator 35 03/18/17 12:00 89 03/18/17 12:00 35 03/18/17 11:00 87 19 100/58 95 Mechanical Ventilator 35 03/18/17 10:45 89 21 35 03/18/17 10:00 89 16 94/51 95 Mechanical Ventilator 35 03/18/17 09:19 92 27 35 03/18/17 09:00 91 24 130/83 97 Mechanical Ventilator 35 03/18/17 08:34 88 100/63 03/18/17 08:00 98.7 91 25 100/63 96 Mechanical Ventilator 35 03/18/17 08:00 92 03/18/17 08:00 35 03/18/17 07:09 90 17 35 03/18/17 07:00 91 21 111/74 96 Mechanical Ventilator 35 03/18/17 06:00 90 22 102/69 96 Mechanical Ventilator 35 03/18/17 05:27 87 21 35 03/18/17 05:00 90 24 106/71 97 Mechanical Ventilator 35 03/18/17 04:00 35 03/18/17 04:00 95 03/18/17 04:00 98.5 93 22 111/79 95 Mechanical Ventilator 35 03/18/17 03:27 92 22 35 03/18/17 03:00 97 19 104/64 95 Mechanical Ventilator 35 03/18/17 02:00 95 25 103/65 96 Mechanical Ventilator 35 03/18/17 01:26 79 18 35 03/18/17 01:00 95 24 111/67 98 Mechanical Ventilator 35 03/18/17 00:00 93 1/4/18 00:00 35 03/18/17 00:00 98.1 93 28 99/66 96 Mechanical Ventilator 35 03/17/17 23:20 88 22 35 03/17/17 23:00 92 20 102/69 97 Mechanical Ventilator 35 03/17/17 22:00 93 24 146/118 96 Mechanical Ventilator 35 03/17/17 21:24 82 20 35 03/17/17 21:00 93 21 105/66 96 Mechanical Ventilator 35 03/17/17 20:45 92 111/72 03/17/17 20:00 92 03/17/17 20:00 98.7 92 25 111/72 95 Mechanical Ventilator 35 03/17/17 20:00 35 Intake and Output 03/17/17 03/18/17 19:00 07:00 Intake Total 854.800 ml 770 ml Output Total 885 ml 925 ml Balance -30.200 ml -155 ml Free Water 150 ml IV Total 619.800 ml 110 ml Tube Feeding 55 ml 660 ml Other 30 ml Output Urine Total 885 ml 925 ml Laboratory Tests 03/18/17 05:00: White Blood Count 10.7, Red Blood Count 3.62L, Hemoglobin 10.8L, Hematocrit 33.3L, Mean Corpuscular Volume 92, Mean Corpuscular Hemoglobin 29.9, Mean Corpuscular Hemoglobin Concent 32.5, Red Cell Distribution Width 13.4, Platelet Count 502H, Mean Platelet Volume 6.1L, Neutrophils (%) (Auto) 60.9, Lymphocytes (%) (Auto) 27.1, Monocytes (%) (Auto) 7.1, Eosinophils (%) (Auto) 3.8H, Basophils (%) (Auto) 1.0, Sodium Level 143, Potassium Level 3.7, Chloride Level 110H, Carbon Dioxide Level 27, Anion Gap 6, Blood Urea Nitrogen 17, Creatinine 1.0, Estimat Glomerular Filtration Rate > 60, Glucose Level 82, Calcium Level 8.0L, Phosphorus Level 2.9, Magnesium Level 2.2, Total Bilirubin 0.4, Aspartate Amino Transf (AST/SGOT) 60H, Alanine Aminotransferase (ALT/SGPT) 43, Alkaline Phosphatase 104, Total Protein 7.0, Albumin 1.9L, Globulin 5.1, Albumin/ Globulin Ratio 0.4L 03/18/17 07:55: Arterial Blood pH 7.486H, Arterial Blood Partial Pressure CO2 33.4L, Arterial Blood Partial Pressure O2 75.5, Arterial Blood HCO3 25.2, Arterial Blood Oxygen Saturation 95.1, Arterial Blood Base Excess 2.3, Ulises Test Positive 03/18/17 12:05: Prothrombin Time 10.7, Prothromb Time International Ratio 1.0, Activated Partial Thromboplast Time 28 Height (Feet): 5 Height (Inches): 9.00 Weight (Pounds): 154 General Appearance: no apparent distress EENT: normal ENT inspection Neck: supple Cardiovascular: normal rate Respiratory/Chest: chest wall non-tender Extremities: non-tender Edema: mild edema Neurologic: alert Skin: warm/dry Justin Anthony Mar 18, 2017 19:35
[2017-03-18] MEDS: Dyna-Hex 2% Top Sol 2oz TOPIC SCH (21:00)
[2017-03-18] MEDS: Miralax 17gm pkt ORAL SCH (21:00)
[2017-03-19] VITALS (23 sets, daily range): BP systolic 98–125; BP diastolic 53–87
--- NOTE | 2017-03-19 | Cardiology Progress Note ---
Assessment/Plan Assessment/Plan 1, Septic shock, improved. 2. Acute NSTEMI vs troponin leak. Continue coreg and ASA. May consider statins. 3. Bacteremia. 4. Hypovolemia, hydration. 5. Pulmonary hypertension. 6. Chronic obstructive pulmonary disease. Subjective Subjective Sinus rhythm at 95. Remains intubated. Objective Last 24 Hour Vital Signs Date Time Temp Pulse Resp B/P (MAP) Pulse Ox O2 Delivery O2 Flow Rate FiO2 03/18/17 22:40 85 22 35 03/18/17 21:01 90 128/60 03/18/17 21:00 91 26 125/72 96 Mechanical Ventilator 35 03/18/17 20:57 94 27 35 03/18/17 20:00 98.7 88 21 128/60 97 Mechanical Ventilator 35 03/18/17 20:00 35 03/18/17 20:00 88 03/18/17 19:29 89 22 35 03/18/17 19:00 90 24 142/62 96 Mechanical Ventilator 35 03/18/17 18:00 91 25 141/62 96 Mechanical Ventilator 35 03/18/17 17:24 87 20 35 03/18/17 17:00 87 21 130/59 96 Mechanical Ventilator 35 03/18/17 16:00 90 03/18/17 16:00 35 03/18/17 16:00 97.9 89 22 132/59 95 Mechanical Ventilator 35 03/18/17 15:15 88 27 35 03/18/17 15:00 89 30 109/55 95 Mechanical Ventilator 35 03/18/17 14:00 90 18 118/53 97 Mechanical Ventilator 35 03/18/17 13:32 89 26 35 03/18/17 13:00 90 27 118/43 97 Mechanical Ventilator 35 03/18/17 12:00 98.2 89 21 89/60 97 Mechanical Ventilator 35 03/18/17 12:00 89 03/18/17 12:00 35 03/18/17 11:00 87 19 100/58 95 Mechanical Ventilator 35 03/18/17 10:45 89 21 35 03/18/17 10:00 89 16 94/51 95 Mechanical Ventilator 35 03/18/17 09:19 92 27 35 03/18/17 09:00 91 24 130/83 97 Mechanical Ventilator 35 03/18/17 08:34 88 100/63 03/18/17 08:00 98.7 91 25 100/63 96 Mechanical Ventilator 35 03/18/17 08:00 92 03/18/17 08:00 35 03/18/17 07:09 90 17 35 03/18/17 07:00 91 21 111/74 96 Mechanical Ventilator 35 03/18/17 06:00 90 22 102/69 96 Mechanical Ventilator 35 03/18/17 05:27 87 21 35 03/18/17 05:00 90 24 106/71 97 Mechanical Ventilator 35 03/18/17 04:00 35 03/18/17 04:00 95 03/18/17 04:00 98.5 93 22 111/79 95 Mechanical Ventilator 35 03/18/17 03:27 92 22 35 03/18/17 03:00 97 19 104/64 95 Mechanical Ventilator 35 03/18/17 02:00 95 25 103/65 96 Mechanical Ventilator 35 03/18/17 01:26 79 18 35 03/18/17 01:00 95 24 111/67 98 Mechanical Ventilator 35 Intake and Output 03/18/17 03/19/17 19:00 07:00 Intake Total 660 ml 55 ml Output Total 885 ml 255 ml Balance -225 ml -200 ml Tube Feeding 660 ml 55 ml Output Urine Total 885 ml 255 ml # Bowel Movements 2 2 Laboratory Tests Test 03/18/17 05:00 03/18/17 07:55 03/18/17 12:05 White Blood Count 10.7 K/UL (4.8-10.8) Red Blood Count 3.62 M/UL (4.70-6.10) L Hemoglobin 10.8 G/DL (14.2-18.0) L Hematocrit 33.3 % (42.0-52.0) L Mean Corpuscular Volume 92 FL (80-99) Mean Corpuscular Hemoglobin 29.9 PG (27.0-31.0) Mean Corpuscular Hemoglobin Concent 32.5 G/DL (32.0-36.0) Red Cell Distribution Width 13.4 % (11.6-14.8) Platelet Count 502 K/UL (150-450) H Mean Platelet Volume 6.1 FL (6.5-10.1) L Neutrophils (%) (Auto) 60.9 % (45.0-75.0) Lymphocytes (%) (Auto) 27.1 % (20.0-45.0) Monocytes (%) (Auto) 7.1 % (1.0-10.0) Eosinophils (%) (Auto) 3.8 % (0.0-3.0) H Basophils (%) (Auto) 1.0 % (0.0-2.0) Sodium Level 143 MMOL/L (136-145) Potassium Level 3.7 MMOL/L (3.5-5.1) Chloride Level 110 MMOL/L (98-107) H Carbon Dioxide Level 27 MMOL/L (21-32) Anion Gap 6 mmol/L (5-15) Blood Urea Nitrogen 17 mg/dL (7-18) Creatinine 1.0 MG/DL (0.55-1.30) Estimat Glomerular Filtration Rate > 60 mL/min (>60) Glucose Level 82 MG/DL (74-106) Calcium Level 8.0 MG/DL (8.5-10.1) L Phosphorus Level 2.9 MG/DL (2.5-4.9) Magnesium Level 2.2 MG/DL (1.8-2.4) Total Bilirubin 0.4 MG/DL (0.2-1.0) Aspartate Amino Transf (AST/SGOT) 60 U/L (15-37) H Alanine Aminotransferase (ALT/SGPT) 43 U/L (12-78) Alkaline Phosphatase 104 U/L (46-116) Total Protein 7.0 G/DL (6.4-8.2) Albumin 1.9 G/DL (3.4-5.0) L Globulin 5.1 g/dL Albumin/Globulin Ratio 0.4 (1.0-2.7) L Arterial Blood pH 7.486 (7.350-7.450) Arterial Blood Partial Pressure CO2 33.4 mmHg (35.0-45.0) L Arterial Blood Partial Pressure O2 75.5 mmHg (75.0-100.0) Arterial Blood HCO3 25.2 mmol/L (22.0-26.0) Arterial Blood Oxygen Saturation 95.1 % (92.0-98.0) Arterial Blood Base Excess 2.3 Ulises Test Positive Prothrombin Time 10.7 SEC (9.30-11.50) Prothromb Time International Ratio 1.0 (0.9-1.1) Activated Partial Thromboplast Time 28 SEC (23-33) Objective HEENT: Temporal wasting. PERRLA, EOMI. Dry mucous membranes. NECK: Negative JVP, no carotid bruit. Lungs: Bilateral rhonchi. CVS: Regular rhythm. Rapid rate. Normal S1 and S2. No murmur. ABDOMEN: Soft, NT/ND, + BS EXT: here is no edema, clubbing or cyanosis. ERIN OGDEN Mar 19, 2017 00:00
[2017-03-19] MEDS ORDERED: Midazolam 2mg/2ml Inj ONE (05:00)
[2017-03-19] MEDS ORDERED: fentaNYL 100 mcg/2 mL IV ONE (05:00)
[2017-03-19] MEDS ORDERED: Zemuron 50mg/5ml Inj IV ONE (05:00)
[2017-03-19] MEDS: Vancomycin 750mg/NS 250ml IVPB SCH ×2 (05:48→17:41)
[2017-03-19] MEDS: Meropenem 1gm in NS 55ml IVPB SCH ×3 (05:48→21:41)
[2017-03-19 07:14] LABS: BASOPHILS % (AUTO) 1.1 % (0.0-2.0); EOSINOPHILS % (AUTO) 5.4 % (0.0-3.0); HEMOGLOBIN 10.8 G/DL (14.2-18.0); LYMPHOCYTES % (AUTO) 26.5 % (20.0-45.0); MEAN CORPUSCULAR VOLUME 92 FL (80-99); MONOCYTES % (AUTO) 10.2 % (1.0-10.0); NEUTROPHILS % (AUTO) 56.8 % (45.0-75.0); PLATELET COUNT 465 K/UL (150-450); RED CELL DISTRIBUTION WIDTH 13.2 % (11.6-14.8); WHITE BLOOD COUNT 9.8 K/UL (4.8-10.8)
[2017-03-19 07:31] LABS: ALANINE AMINOTRANSFERASE 45 U/L (12-78); ALBUMIN 1.9 G/DL (3.4-5.0); ALBUMIN/GLOBULIN RATIO 0.4 (1.0-2.7); ALKALINE PHOSPHATASE 107 U/L (46-116); ANION GAP 4 mmol/L (5-15); ASPARTATE AMINO TRANSFERASE 57 U/L (15-37); BILIRUBIN,TOTAL 0.4 MG/DL (0.2-1.0); BLOOD UREA NITROGEN 13 mg/dL (7-18); CALCIUM 7.7 MG/DL (8.5-10.1); CARBON DIOXIDE 29 MMOL/L (21-32); CHLORIDE 111 MMOL/L (98-107); POTASSIUM 3.8 MMOL/L (3.5-5.1); SODIUM 144 MMOL/L (136-145)
[2017-03-19] MEDS: Pantoprazole Inj IVP SCH ×2 (09:00→21:32)
[2017-03-19] MEDS: Docusate 100mg/10ml Liq GT SCH ×2 (09:00→17:41)
--- NOTE | 2017-03-19 09:50 | Infectious Diseases Prog Note ---
Assessment/Plan Assessment/Plan ASSESSMENT: The patient is a 71-year-old male with: Aerococcus urinae bacteremia- ?source UTI however Ucx neg; r/o endocarditis as has been associated with endocarditis in the elderly. -03/03 Bcx / +; 03/06 Neg x4 -Elevated CRp 21.0 03/06; CRP 1.2 03/19 (improving) -03/03 TTE: no vegetations, no significant valve abnormalities 03/16 CONS bacteremia-likely contaminant 03/12 03/16, 03/15 Bccx NTD x4 Sepsis- ongoing- fever/leukocytosis improving -CT chest/abd/p w/: Somewhat limited exam due to motion artifact. Right upper lobe, right lower lobe, and left lower lobe atelectasis and consolidation. Likely pneumonia, otherwise nonspecific. Elevated right hemidiaphragm. Small left pleural effusion. Satisfactory positions of endotracheal and nasogastric tubes. No acute abdominal process. Degenerative lumbar spondylosis. Colonic interposition incidentally noted. Colonic diverticulosis. Beltran catheter. Prominent prostate. Degenerative changes of the right hip with heterotopic ossification Leukocytosis , recurrent- resolved FEvers improving HCAP Scx : ESBL EColi ; now new infiltrate- -sp cx 03/11 +1 C. albicans(colonizer); sp cxc 03/17 p -CXR 03/17: Right upper lobe reticular consolidation persists, probably not significantly changed. There appears to be slightly improved retrocardiac aeration, but consolidation and atelectasis persists. There is decreased reticular consolidation in the left lung apex. There may be atelectasis of a of the left lower lobe; if so this is unchanged. -CXR 03/11: persistent extensive right upper lobe infiltrate. Infiltrate and pleural fluid in the left mid and lower lung persist, are probably unchanged allowing for slightly greater lung volumes on the current exam. -CXR 03/09: New right pulmonary infiltrate. Possible urinary tract infection 03/04 ucx neg; repeat u/a 03/11 u/a no pyuria Elevated inflammatory markers -ESR 94, CRP 14.2 03/11> 8 03/14; improving Influenza negative AST Elevation s/p PICC line 03/09 Positive cardiac enzymes. Acute renal failure, improving Dysphagia. Osteoarthritis. Hypertension. COPD. History of GERD History of H. pylori in the past Dementia with psychosis PLAN: continue IV Merrem d# for ESBL PNA and aerococcus bacteremia and empiric IV Vancomycin #9/10 given new infiltrate 03/15 SP Dapto x1 03/08 SP vancomycin d# 5 03/07 SP Zosyn d# 4 -may need to remove PICC line if recurrent ConS bacteremia or persistent fevers with no obvious source. f.u repeat Bcx Monitor CBC/CMP. Monitor cultures (blood ) Monitor chest x-ray. Monitor renal function. Subjective Allergies: Coded Allergies: No Known Allergies (Unverified , 10/20/16) Subjective afebrile in 72hrs no leukocytosis remains vent fios 35% Objective Vital Signs Last 24 Hour Vital Signs Date Time Temp Pulse Resp B/P (MAP) Pulse Ox O2 Delivery O2 Flow Rate FiO2 03/19/17 09:14 85 28 35 03/19/17 09:00 82 111/87 03/19/17 08:00 97.4 85 23 98/76 97 Mechanical Ventilator 35 03/19/17 08:00 85 03/19/17 08:00 35 03/19/17 07:00 83 20 110/59 96 Mechanical Ventilator 35 03/19/17 06:52 84 24 35 03/19/17 06:00 85 19 107/58 98 Mechanical Ventilator 35 03/19/17 05:00 84 28 102/59 98 Mechanical Ventilator 35 03/19/17 04:58 80 16 35 03/19/17 04:00 98.1 83 28 107/69 98 Mechanical Ventilator 35 03/19/17 04:00 35 03/19/17 04:00 83 03/19/17 03:25 82 17 35 03/19/17 03:00 85 26 106/58 98 Mechanical Ventilator 35 03/19/17 02:00 82 24 121/67 98 Mechanical Ventilator 35 03/19/17 01:05 88 30 35 03/19/17 01:00 89 21 110/69 97 Mechanical Ventilator 35 03/19/17 00:00 98.3 88 25 111/70 97 Mechanical Ventilator 35 03/18/17 23:00 89 25 107/69 98 Mechanical Ventilator 35 03/18/17 22:40 85 22 35 03/18/17 22:00 87 20 102/81 97 Mechanical Ventilator 35 03/18/17 21:01 90 128/60 03/18/17 21:00 91 26 125/72 96 Mechanical Ventilator 35 03/18/17 20:57 94 27 35 03/18/17 20:00 98.7 88 21 128/60 97 Mechanical Ventilator 35 03/18/17 20:00 35 03/18/17 20:00 88 03/18/17 19:29 89 22 35 03/18/17 19:00 90 24 142/62 96 Mechanical Ventilator 35 03/18/17 18:00 91 25 141/62 96 Mechanical Ventilator 35 03/18/17 17:24 87 20 35 03/18/17 17:00 87 21 130/59 96 Mechanical Ventilator 35 03/18/17 16:00 90 03/18/17 16:00 35 03/18/17 16:00 97.9 89 22 132/59 95 Mechanical Ventilator 35 03/18/17 15:15 88 27 35 03/18/17 15:00 89 30 109/55 95 Mechanical Ventilator 35 03/18/17 14:00 90 18 118/53 97 Mechanical Ventilator 35 03/18/17 13:32 89 26 35 03/18/17 13:00 90 27 118/43 97 Mechanical Ventilator 35 03/18/17 12:00 98.2 89 21 89/60 97 Mechanical Ventilator 35 03/18/17 12:00 89 03/18/17 12:00 35 03/18/17 11:00 87 19 100/58 95 Mechanical Ventilator 35 03/18/17 10:45 89 21 35 03/18/17 10:00 89 16 94/51 95 Mechanical Ventilator 35 Height (Feet): 5 Height (Inches): 8.00 Weight (Pounds): 157 Objective General Appearance: other - Intubated, limited eval as patient is not following commands EENT: PERRL/EOMI Neck: supple Cardiovascular: tachycardia Respiratory/Chest: rhonchi - bilaterally Abdomen: soft Extremities: other - cachectic appearance Neurologic: other - limited eval as patient is not following commands Microbiology Date/Time Source Procedure Growth Status 03/17/17 12:15 Sputum Gram Stain - Final Resulted 03/17/17 12:15 Sputum Sputum Culture Pending Resulted Laboratory Tests Test 03/18/17 12:05 03/19/17 06:00 03/19/17 07:00 Prothrombin Time 10.7 SEC (9.30-11.50) Prothromb Time International Ratio 1.0 (0.9-1.1) Activated Partial Thromboplast Time 28 SEC (23-33) White Blood Count 9.8 K/UL (4.8-10.8) Red Blood Count 3.70 M/UL (4.70-6.10) L Hemoglobin 10.8 G/DL (14.2-18.0) L Hematocrit 34.0 % (42.0-52.0) L Mean Corpuscular Volume 92 FL (80-99) Mean Corpuscular Hemoglobin 29.2 PG (27.0-31.0) Mean Corpuscular Hemoglobin Concent 31.8 G/DL (32.0-36.0) L Red Cell Distribution Width 13.2 % (11.6-14.8) Platelet Count 465 K/UL (150-450) H Mean Platelet Volume 6.1 FL (6.5-10.1) L Neutrophils (%) (Auto) 56.8 % (45.0-75.0) Lymphocytes (%) (Auto) 26.5 % (20.0-45.0) Monocytes (%) (Auto) 10.2 % (1.0-10.0) H Eosinophils (%) (Auto) 5.4 % (0.0-3.0) H Basophils (%) (Auto) 1.1 % (0.0-2.0) Erythrocyte Sedimentation Rate 79 MM/HR (0-20) H Sodium Level 144 MMOL/L (136-145) Potassium Level 3.8 MMOL/L (3.5-5.1) Chloride Level 111 MMOL/L (98-107) H Carbon Dioxide Level 29 MMOL/L (21-32) Anion Gap 4 mmol/L (5-15) L Blood Urea Nitrogen 13 mg/dL (7-18) Creatinine 1.0 MG/DL (0.55-1.30) Estimat Glomerular Filtration Rate > 60 mL/min (>60) Glucose Level 90 MG/DL (74-106) Calcium Level 7.7 MG/DL (8.5-10.1) L Phosphorus Level 3.0 MG/DL (2.5-4.9) Magnesium Level 2.2 MG/DL (1.8-2.4) Total Bilirubin 0.4 MG/DL (0.2-1.0) Aspartate Amino Transf (AST/SGOT) 57 U/L (15-37) H Alanine Aminotransferase (ALT/SGPT) 45 U/L (12-78) Alkaline Phosphatase 107 U/L (46-116) C-Reactive Protein, Quantitative 1.2 mg/dL (0.00-0.90) H Total Protein 7.1 G/DL (6.4-8.2) Albumin 1.9 G/DL (3.4-5.0) L Globulin 5.2 g/dL Albumin/Globulin Ratio 0.4 (1.0-2.7) L Arterial Blood pH 7.500 (7.350-7.450) Arterial Blood Partial Pressure CO2 36.6 mmHg (35.0-45.0) Arterial Blood Partial Pressure O2 90.5 mmHg (75.0-100.0) Arterial Blood HCO3 28.1 mmol/L (22.0-26.0) H Arterial Blood Oxygen Saturation 97.0 % (92.0-98.0) Arterial Blood Base Excess 4.9 Ulises Test Positive Current Medications Medications (Trade) Dose Ordered Sig/Ant Route PRN Reason Start Time Stop Time Status Last Admin Dose Admin Acetaminophen (Tylenol) 650 mg Q4H PRN ORAL Mild Pain/Temp > 100.5 03/04/17 08:45 04/03/17 08:44 03/13/17 21:06 Albuterol/ Ipratropium (Albuterol/ Ipratropium) 3 ml Q6HRT HHN 03/09/17 13:00 03/14/17 23:59 03/13/17 19:51 Artificial Tears (Akwa-Tears) 2 drop Q2H PRN BOTH EYES Dry Eyes 03/09/17 09:15 04/08/17 09:14 03/13/17 08:49 Carvedilol (Coreg) 3.125 mg EVERY 12 HOURS PEG 03/13/17 09:00 04/12/17 08:59 03/18/17 21:01 Chlorhexidine Gluconate (Lisa-Hex 2%) 1 applic DAILY@1999 TOPIC 03/09/17 20:00 04/08/17 19:59 03/18/17 21:00 Docusate Sodium (Colace) 100 mg BID GT 03/11/17 21:30 04/10/17 21:29 03/18/17 08:33 Lorazepam (Ativan 2mg/ml 1ml) 2 mg Q4H PRN IV For Anxiety 03/17/17 12:00 03/24/17 11:59 03/18/17 00:31 Meropenem 1 gm/ Sodium Chloride 55 ml @ 110 mls/hr Q8HR@0600,1400,2200 IVPB 03/14/17 16:00 03/21/17 15:59 03/19/17 05:48 Morphine Sulfate (Morphine Sulfate) 2 mg Q4H PRN IVP Severe Pain (Pain Scale 7-10) 03/17/17 12:00 03/24/17 11:59 Pantoprazole (Protonix) 40 mg Q12HR IVP 03/04/17 21:00 04/03/17 20:59 03/18/17 21:00 Polyethylene Glycol (Miralax) 17 gm BEDTIME ORAL 03/11/17 21:30 04/10/17 21:29 03/17/17 20:45 Vancomycin HCl (Vanco rx to dose) 1 ea DAILY PRN MISC Per rx protocol 03/11/17 10:00 04/10/17 09:59 Vancomycin/Sodium Chloride 250 ml @ 166.667 mls/hr Q12HR@0600,1800 IVPB 03/16/17 18:00 03/21/17 17:59 03/19/17 05:48 Alise Polanco M.D. Mar 19, 2017 09:50
[2017-03-19] MEDS ORDERED: Lidocaine 1% 10mg/ml/Epi 0.005mg/ml 30ml vial INJ ONE (10:34)
--- NOTE | 2017-03-19 11:53 | Diagnostic Imaging Report ---
Indication: Reason For Exam: [id number] Technique: One view of the chest Comparison: 03/18/2017 Findings: Stable satisfactory positions of endotracheal and nasogastric tubes. Left arm PICC remains. Diffuse right lung, left lower lobe infiltrates persist, unchanged. Persistent elevation right hemidiaphragm. Findings are overall unchanged, allowing for differences in degree of inspiration Impression: Unchanged, over one day, findings as above.
--- NOTE | 2017-03-19 11:58 | Pulmonolgy Critical Care Note ---
Critical Care - Asmt/Plan Problems: (1) Respiratory distress (2) COPD (chronic obstructive pulmonary disease) (3) Healthcare associated bacterial pneumonia (4) senior living resident (5) Alzheimer disease Respiratory: monitor respiratory rate, adjust FIO2, CXR Cardiac: continue to monitor HR/BP Renal: F/U I&O, keep IV fluid Infectious Disease: check cultures, continue antibiotics Gastrointestinal: continue feedings/current rate, hold feedings Endocrine: check HgA1C Hematologic: monitor H/H Neurologic: PRN Morphine Affect: PRN ativan Disposition: keep in ICU Notes Reviewed: lokie engineer Discussed with: nurses, consultants, case pickerassistant merchandise manager - Objective Last 24 Hour Vital Signs Date Time Temp Pulse Resp B/P (MAP) Pulse Ox O2 Delivery O2 Flow Rate FiO2 03/19/17 11:10 82 19 35 03/19/17 10:00 79 18 100/53 96 Mechanical Ventilator 35 03/19/17 09:14 85 28 35 03/19/17 09:00 82 111/87 03/19/17 09:00 80 17 111/87 97 Mechanical Ventilator 35 03/19/17 08:00 97.4 85 23 98/76 97 Mechanical Ventilator 35 03/19/17 08:00 85 03/19/17 08:00 35 03/19/17 07:00 83 20 110/59 96 Mechanical Ventilator 35 03/19/17 06:52 84 24 35 03/19/17 06:00 85 19 107/58 98 Mechanical Ventilator 35 03/19/17 05:00 84 28 102/59 98 Mechanical Ventilator 35 03/19/17 04:58 80 16 35 03/19/17 04:00 98.1 83 28 107/69 98 Mechanical Ventilator 35 03/19/17 04:00 35 03/19/17 04:00 83 03/19/17 03:25 82 17 35 03/19/17 03:00 85 26 106/58 98 Mechanical Ventilator 35 03/19/17 02:00 82 24 121/67 98 Mechanical Ventilator 35 03/19/17 01:05 88 30 35 03/19/17 01:00 89 21 110/69 97 Mechanical Ventilator 35 03/19/17 00:00 98.3 88 25 111/70 97 Mechanical Ventilator 35 03/18/17 23:00 89 25 107/69 98 Mechanical Ventilator 35 03/18/17 22:40 85 22 35 03/18/17 22:00 87 20 102/81 97 Mechanical Ventilator 35 03/18/17 21:01 90 128/60 03/18/17 21:00 91 26 125/72 96 Mechanical Ventilator 35 03/18/17 20:57 94 27 35 03/18/17 20:00 98.7 88 21 128/60 97 Mechanical Ventilator 35 03/18/17 20:00 35 03/18/17 20:00 88 03/18/17 19:29 89 22 35 03/18/17 19:00 90 24 142/62 96 Mechanical Ventilator 35 03/18/17 18:00 91 25 141/62 96 Mechanical Ventilator 35 03/18/17 17:24 87 20 35 03/18/17 17:00 87 21 130/59 96 Mechanical Ventilator 35 03/18/17 16:00 90 03/18/17 16:00 35 03/18/17 16:00 97.9 89 22 132/59 95 Mechanical Ventilator 35 03/18/17 15:15 88 27 35 03/18/17 15:00 89 30 109/55 95 Mechanical Ventilator 35 03/18/17 14:00 90 18 118/53 97 Mechanical Ventilator 35 03/18/17 13:32 89 26 35 03/18/17 13:00 90 27 118/43 97 Mechanical Ventilator 35 03/18/17 12:00 98.2 89 21 89/60 97 Mechanical Ventilator 35 03/18/17 12:00 89 03/18/17 12:00 35 Status: sedated HEENT: atraumatic, normocephalic Lungs: rales, rhonchi Heart: HR/BP stable Abdomen: soft, non-tender Extremities: no C/C/E Micro: Microbiology Date/Time Source Procedure Growth Status 03/17/17 12:15 Sputum Gram Stain - Final Resulted 03/17/17 12:15 Sputum Sputum Culture Pending Resulted Critical Care - Subjective ROS Limited/Unobtainable: No ICU Day: 16 Condition: critical EKG Rhythm: Sinus Rhythm FI02: 35 Vent Support Breath Rate: 16 Vent Support Mode: AC Vent Tidal Volume: 450 Sputum Amount: Moderate PEEP: 5.0 PIP: 24 Tube Feeding Amount: 0 I&O: Intake and Output 03/18/17 03/19/17 19:00 07:00 Intake Total 660 ml 165 ml Output Total 885 ml 750 ml Balance -225 ml -585 ml IV Total 110 ml Tube Feeding 660 ml 55 ml Output Urine Total 885 ml 750 ml # Bowel Movements 2 5 CXR: ET in good position ET-Tube: 7.5 ET Position: 23 Labs: Laboratory Tests Test 03/18/17 12:05 03/19/17 06:00 03/19/17 07:00 Prothrombin Time 10.7 SEC (9.30-11.50) Prothromb Time International Ratio 1.0 (0.9-1.1) Activated Partial Thromboplast Time 28 SEC (23-33) White Blood Count 9.8 K/UL (4.8-10.8) Red Blood Count 3.70 M/UL (4.70-6.10) L Hemoglobin 10.8 G/DL (14.2-18.0) L Hematocrit 34.0 % (42.0-52.0) L Mean Corpuscular Volume 92 FL (80-99) Mean Corpuscular Hemoglobin 29.2 PG (27.0-31.0) Mean Corpuscular Hemoglobin Concent 31.8 G/DL (32.0-36.0) L Red Cell Distribution Width 13.2 % (11.6-14.8) Platelet Count 465 K/UL (150-450) H Mean Platelet Volume 6.1 FL (6.5-10.1) L Neutrophils (%) (Auto) 56.8 % (45.0-75.0) Lymphocytes (%) (Auto) 26.5 % (20.0-45.0) Monocytes (%) (Auto) 10.2 % (1.0-10.0) H Eosinophils (%) (Auto) 5.4 % (0.0-3.0) H Basophils (%) (Auto) 1.1 % (0.0-2.0) Erythrocyte Sedimentation Rate 79 MM/HR (0-20) H Sodium Level 144 MMOL/L (136-145) Potassium Level 3.8 MMOL/L (3.5-5.1) Chloride Level 111 MMOL/L (98-107) H Carbon Dioxide Level 29 MMOL/L (21-32) Anion Gap 4 mmol/L (5-15) L Blood Urea Nitrogen 13 mg/dL (7-18) Creatinine 1.0 MG/DL (0.55-1.30) Estimat Glomerular Filtration Rate > 60 mL/min (>60) Glucose Level 90 MG/DL (74-106) Calcium Level 7.7 MG/DL (8.5-10.1) L Phosphorus Level 3.0 MG/DL (2.5-4.9) Magnesium Level 2.2 MG/DL (1.8-2.4) Total Bilirubin 0.4 MG/DL (0.2-1.0) Aspartate Amino Transf (AST/SGOT) 57 U/L (15-37) H Alanine Aminotransferase (ALT/SGPT) 45 U/L (12-78) Alkaline Phosphatase 107 U/L (46-116) C-Reactive Protein, Quantitative 1.2 mg/dL (0.00-0.90) H Total Protein 7.1 G/DL (6.4-8.2) Albumin 1.9 G/DL (3.4-5.0) L Globulin 5.2 g/dL Albumin/Globulin Ratio 0.4 (1.0-2.7) L Arterial Blood pH 7.500 (7.350-7.450) Arterial Blood Partial Pressure CO2 36.6 mmHg (35.0-45.0) Arterial Blood Partial Pressure O2 90.5 mmHg (75.0-100.0) Arterial Blood HCO3 28.1 mmol/L (22.0-26.0) H Arterial Blood Oxygen Saturation 97.0 % (92.0-98.0) Arterial Blood Base Excess 4.9 Ulises Test Positive MARCELA SCHULZ Mar 19, 2017 11:58
[2017-03-19] MEDS ORDERED: NS Irrig 1000ml IRRIG ONE (12:48)
--- NOTE | 2017-03-19 13:59 | Immediate Post-Op Evaluation ---
Immediate Post-Op Evalulation Immediate Post-Op Evalulation Procedure: Tracheostomy Date of Evaluation: Mar 19, 2017 Time of Evaluation: 13:58 IV Fluids: 200 Blood Products: none Estimated Blood Loss: min Urinary Output: none Blood Pressure Systolic: 124 Blood Pressure Diastolic: 72 Pulse Rate: 86 Respiratory Rate: 20 O2 Sat by Pulse Oximetry: 99 Temperature (Fahrenheit): 97.8 Pain Score (1-10): 2 Nausea: No Vomiting: No Complications none Patient Status: no response, ventilated, none Hydration Status: adequate AMEENA RODRIGUEZ M.D. Mar 19, 2017 13:59
--- NOTE | 2017-03-19 14:32 | Brief Operative Note ---
Immediate Post Operative Note Operative Note Pre-op Diagnosis: tracheostomy Procedure: respiratory failure requiring prolonged ventilatory support Findings: consistent w/pre-op dx studies Surgeon: edith Anesthesiologist: nathan Anesthesia: general, local Specimen: none Complications: none Condition: stable Fluids: see records Estimated Blood Loss: minimal Drains: none Implant(s) used?: Yes - 8f Trent Nichole Mar 19, 2017 14:32
--- NOTE | 2017-03-19 14:58 | Nephrology Progress Note ---
Assessment/Plan Problem List: (1) Respiratory disorder with ventilator dependence (2) UTI (urinary tract infection) (3) Hypernatremia (4) Acute renal failure Assessment - Na 148 - Acute renal failure cr 1.1 to 2.4 to 2.1 to 1.9 to 1.5 WNL - Chronic paranoid schizophrenia - Respiratory disorder with ventilator dependence - Healthcare associated bacterial pneumonia - UTI (urinary tract infection) - SIRS (systemic inflammatory response syndrome) - Alzheimer disease - Hypokalemia - Hypernatremia / due to water deficit improving with D5 resolving Plan plan: due trach today stable from renal stand K supplement as needed Water NGT Pulm support Antibiotics monitor renal parameters per orders Subjective ROS Limited/Unobtainable: Yes Objective Objective Last 24 Hour Vital Signs Date Time Temp Pulse Resp B/P (MAP) Pulse Ox O2 Delivery O2 Flow Rate FiO2 03/19/17 13:59 86 20 99 03/19/17 12:43 84 25 35 03/19/17 12:00 84 03/19/17 12:00 98.8 50 25 116/72 96 Mechanical Ventilator 35 03/19/17 12:00 35 03/19/17 11:10 82 19 35 03/19/17 11:00 75 23 116/58 97 Mechanical Ventilator 35 03/19/17 10:00 79 18 100/53 96 Mechanical Ventilator 35 03/19/17 09:14 85 28 35 03/19/17 09:00 82 111/87 03/19/17 09:00 80 17 111/87 97 Mechanical Ventilator 35 03/19/17 08:00 97.4 85 23 98/76 97 Mechanical Ventilator 35 03/19/17 08:00 85 03/19/17 08:00 35 03/19/17 07:00 83 20 110/59 96 Mechanical Ventilator 35 03/19/17 06:52 84 24 35 03/19/17 06:00 85 19 107/58 98 Mechanical Ventilator 35 03/19/17 05:00 84 28 102/59 98 Mechanical Ventilator 35 03/19/17 04:58 80 16 35 03/19/17 04:00 98.1 83 28 107/69 98 Mechanical Ventilator 35 03/19/17 04:00 35 03/19/17 04:00 83 03/19/17 03:25 82 17 35 03/19/17 03:00 85 26 106/58 98 Mechanical Ventilator 35 03/19/17 02:00 82 24 121/67 98 Mechanical Ventilator 35 03/19/17 01:05 88 30 35 03/19/17 01:00 89 21 110/69 97 Mechanical Ventilator 35 03/19/17 00:00 98.3 88 25 111/70 97 Mechanical Ventilator 35 03/18/17 23:00 89 25 107/69 98 Mechanical Ventilator 35 03/18/17 22:40 85 22 35 03/18/17 22:00 87 20 102/81 97 Mechanical Ventilator 35 03/18/17 21:01 90 128/60 03/18/17 21:00 91 26 125/72 96 Mechanical Ventilator 35 03/18/17 20:57 94 27 35 03/18/17 20:00 98.7 88 21 128/60 97 Mechanical Ventilator 35 03/18/17 20:00 35 03/18/17 20:00 88 03/18/17 19:29 89 22 35 03/18/17 19:00 90 24 142/62 96 Mechanical Ventilator 35 03/18/17 18:00 91 25 141/62 96 Mechanical Ventilator 35 03/18/17 17:24 87 20 35 03/18/17 17:00 87 21 130/59 96 Mechanical Ventilator 35 03/18/17 16:00 90 03/18/17 16:00 35 03/18/17 16:00 97.9 89 22 132/59 95 Mechanical Ventilator 35 03/18/17 15:15 88 27 35 03/18/17 15:00 89 30 109/55 95 Mechanical Ventilator 35 Intake and Output 03/18/17 03/19/17 19:00 07:00 Intake Total 660 ml 165 ml Output Total 885 ml 750 ml Balance -225 ml -585 ml IV Total 110 ml Tube Feeding 660 ml 55 ml Output Urine Total 885 ml 750 ml # Bowel Movements 2 5 Laboratory Tests 03/19/17 06:00: White Blood Count 9.8, Red Blood Count 3.70L, Hemoglobin 10.8L, Hematocrit 34.0L , Mean Corpuscular Volume 92, Mean Corpuscular Hemoglobin 29.2, Mean Corpuscular Hemoglobin Concent 31.8L, Red Cell Distribution Width 13.2, Platelet Count 465H, Mean Platelet Volume 6.1L, Neutrophils (%) (Auto) 56.8, Lymphocytes (%) (Auto) 26.5, Monocytes (%) (Auto) 10.2H, Eosinophils (%) (Auto) 5.4H, Basophils (%) (Auto) 1.1, Erythrocyte Sedimentation Rate 79H, Sodium Level 144, Potassium Level 3.8, Chloride Level 111H, Carbon Dioxide Level 29, Anion Gap 4L, Blood Urea Nitrogen 13, Creatinine 1.0, Estimat Glomerular Filtration Rate > 60, Glucose Level 90, Calcium Level 7.7L, Phosphorus Level 3.0 , Magnesium Level 2.2, Total Bilirubin 0.4, Aspartate Amino Transf (AST/SGOT) 57H, Alanine Aminotransferase (ALT/SGPT) 45, Alkaline Phosphatase 107, C- Reactive Protein, Quantitative 1.2H, Total Protein 7.1, Albumin 1.9L, Globulin 5.2, Albumin/Globulin Ratio 0.4L 03/19/17 07:00: Arterial Blood pH 7.500H, Arterial Blood Partial Pressure CO2 36.6, Arterial Blood Partial Pressure O2 90.5, Arterial Blood HCO3 28.1H, Arterial Blood Oxygen Saturation 97.0, Arterial Blood Base Excess 4.9, Ulises Test Positive Height (Feet): 5 Height (Inches): 8.00 Weight (Pounds): 157 General Appearance: no apparent distress Objective no change CHACHA NUNES Mar 19, 2017 14:58
--- NOTE | 2017-03-19 15:06 | Diagnostic Imaging Report ---
Indication: Status post nasogastric tube repositioning Technique: One view of the lower chest and upper abdomen Comparison: 6 hours earlier Findings: Interval advancement of nasogastric tube, apparent course suggestive of having traversed the duodenum and projecting at the expected level of the proximal jejunum. Right upper lobe and left basilar infiltrates are unchanged. Stable satisfactory positions of endotracheal tube and left arm PICC. Impression: Apparent deep position of nasogastric tube, as described Other stable findings as noted
--- NOTE | 2017-03-19 16:01 | General Progress Note ---
Assessment/Plan Status: stable Assessment/Plan 1. VDRF 2. Sepsis. 2. Healthcare-associated pneumonia (?) 3. Acute hypoxemic respiratory failure. 4. Acute anemia. 5. Hypokalemia. 6. Hypernatremia. 7. Urinary tract infection-healthcare related. 8. Gastrointestinal and deep vein thrombosis prophylaxis. 9. Abnormal Troponin PLAN: CURRENT MANAGEMENT Notes from cardiology, Nephrology, Pulmonary reviewed Poor Prognosis Active current ID management failed multiple attempts for extubation. will proceed with trach Subjective ROS Limited/Unobtainable: Yes - limited eval. as patient not following commands Allergies: Coded Allergies: No Known Allergies (Unverified , 10/20/16) Objective Last 24 Hour Vital Signs Date Time Temp Pulse Resp B/P (MAP) Pulse Ox O2 Delivery O2 Flow Rate FiO2 03/19/17 15:00 87 21 109/71 92 Mechanical Ventilator 35 03/19/17 14:57 88 26 35 03/19/17 14:00 85 26 121/70 92 Mechanical Ventilator 35 03/19/17 13:59 86 20 99 03/19/17 12:43 84 25 35 03/19/17 12:00 84 03/19/17 12:00 98.8 50 25 116/72 96 Mechanical Ventilator 35 03/19/17 12:00 35 03/19/17 11:10 82 19 35 03/19/17 11:00 75 23 116/58 97 Mechanical Ventilator 35 03/19/17 10:00 79 18 100/53 96 Mechanical Ventilator 35 03/19/17 09:14 85 28 35 03/19/17 09:00 82 111/87 03/19/17 09:00 80 17 111/87 97 Mechanical Ventilator 35 03/19/17 08:00 97.4 85 23 98/76 97 Mechanical Ventilator 35 03/19/17 08:00 85 03/19/17 08:00 35 03/19/17 07:00 83 20 110/59 96 Mechanical Ventilator 35 03/19/17 06:52 84 24 35 03/19/17 06:00 85 19 107/58 98 Mechanical Ventilator 35 03/19/17 05:00 84 28 102/59 98 Mechanical Ventilator 35 03/19/17 04:58 80 16 35 03/19/17 04:00 98.1 83 28 107/69 98 Mechanical Ventilator 35 03/19/17 04:00 35 03/19/17 04:00 83 1/5/18 03:25 82 17 35 03/19/17 03:00 85 26 106/58 98 Mechanical Ventilator 35 03/19/17 02:00 82 24 121/67 98 Mechanical Ventilator 35 03/19/17 01:05 88 30 35 03/19/17 01:00 89 21 110/69 97 Mechanical Ventilator 35 03/19/17 00:00 98.3 88 25 111/70 97 Mechanical Ventilator 35 03/18/17 23:00 89 25 107/69 98 Mechanical Ventilator 35 03/18/17 22:40 85 22 35 03/18/17 22:00 87 20 102/81 97 Mechanical Ventilator 35 03/18/17 21:01 90 128/60 03/18/17 21:00 91 26 125/72 96 Mechanical Ventilator 35 03/18/17 20:57 94 27 35 03/18/17 20:00 98.7 88 21 128/60 97 Mechanical Ventilator 35 03/18/17 20:00 35 03/18/17 20:00 88 03/18/17 19:29 89 22 35 03/18/17 19:00 90 24 142/62 96 Mechanical Ventilator 35 03/18/17 18:00 91 25 141/62 96 Mechanical Ventilator 35 03/18/17 17:24 87 20 35 03/18/17 17:00 87 21 130/59 96 Mechanical Ventilator 35 Intake and Output 03/18/17 03/19/17 19:00 07:00 Intake Total 660 ml 165 ml Output Total 885 ml 750 ml Balance -225 ml -585 ml IV Total 110 ml Tube Feeding 660 ml 55 ml Output Urine Total 885 ml 750 ml # Bowel Movements 2 5 Laboratory Tests 03/19/17 06:00: White Blood Count 9.8, Red Blood Count 3.70L, Hemoglobin 10.8L, Hematocrit 34.0L , Mean Corpuscular Volume 92, Mean Corpuscular Hemoglobin 29.2, Mean Corpuscular Hemoglobin Concent 31.8L, Red Cell Distribution Width 13.2, Platelet Count 465H, Mean Platelet Volume 6.1L, Neutrophils (%) (Auto) 56.8, Lymphocytes (%) (Auto) 26.5, Monocytes (%) (Auto) 10.2H, Eosinophils (%) (Auto) 5.4H, Basophils (%) (Auto) 1.1, Erythrocyte Sedimentation Rate 79H, Sodium Level 144, Potassium Level 3.8, Chloride Level 111H, Carbon Dioxide Level 29, Anion Gap 4L, Blood Urea Nitrogen 13, Creatinine 1.0, Estimat Glomerular Filtration Rate > 60, Glucose Level 90, Calcium Level 7.7L, Phosphorus Level 3.0 , Magnesium Level 2.2, Total Bilirubin 0.4, Aspartate Amino Transf (AST/SGOT) 57H, Alanine Aminotransferase (ALT/SGPT) 45, Alkaline Phosphatase 107, C- Reactive Protein, Quantitative 1.2H, Total Protein 7.1, Albumin 1.9L, Globulin 5.2, Albumin/Globulin Ratio 0.4L 03/19/17 07:00: Arterial Blood pH 7.500H, Arterial Blood Partial Pressure CO2 36.6, Arterial Blood Partial Pressure O2 90.5, Arterial Blood HCO3 28.1H, Arterial Blood Oxygen Saturation 97.0, Arterial Blood Base Excess 4.9, Ulises Test Positive Height (Feet): 5 Height (Inches): 8.00 Weight (Pounds): 157 General Appearance: WD/WN EENT: other - limited eval. as patient not following commands Neck: supple Cardiovascular: normal rate Respiratory/Chest: rhonchi - bilaterally Abdomen: soft Extremities: other - limited eval. as patient not following commands Neurologic: other - limited eval. as patient not following commands and intubated Objective comfortable. entubated. limited eval. as patient not following commands Colton Charles MD Mar 19, 2017 16:01
--- NOTE | 2017-03-19 20:16 | General Progress Note ---
Assessment/Plan Assessment/Plan Assessment/Plan #. Leukocytosis 2/2 Sepsis. ID following, on abx --> improving, continue to follow #. Thrombocytosis likely reactive process, stable #. Anemia of chronic disease. Hgb goal above 7. Transfuse as needed, work up has been reviewed #. Respiratory failure to proceed with trach #. COPD #. Hypokalemia. #. Hypernatremia. Subjective HEENT: Reports: no symptoms Cardiovascular: Reports: no symptoms Respiratory: Reports: no symptoms Gastrointestinal/Abdominal: Reports: no symptoms Genitourinary: Reports: no symptoms Neurologic/Psychiatric: Reports: no symptoms Endocrine: Reports: no symptoms Hematologic/Lymphatic: Reports: anemia Allergies: Coded Allergies: No Known Allergies (Unverified , 10/20/16) Subjective NAD, no fevers or chills Objective Last 24 Hour Vital Signs Date Time Temp Pulse Resp B/P (MAP) Pulse Ox O2 Delivery O2 Flow Rate FiO2 03/19/17 20:08 95 22 Mechanical Ventilator 35 03/19/17 19:29 93 25 35 03/19/17 19:00 91 16 111/76 96 Mechanical Ventilator 35 03/19/17 18:00 97.7 82 26 111/76 97 03/19/17 17:03 89 21 35 03/19/17 17:00 35 03/19/17 17:00 98.8 85 22 122/74 95 03/19/17 16:00 98.8 85 22 122/74 95 03/19/17 16:00 87 03/19/17 15:00 87 21 109/71 92 Mechanical Ventilator 35 03/19/17 14:57 88 26 35 03/19/17 14:00 85 26 121/70 92 Mechanical Ventilator 35 03/19/17 13:59 86 20 99 03/19/17 12:43 84 25 35 03/19/17 12:00 84 03/19/17 12:00 98.8 50 25 116/72 96 Mechanical Ventilator 35 03/19/17 12:00 35 03/19/17 11:10 82 19 35 03/19/17 11:00 75 23 116/58 97 Mechanical Ventilator 35 03/19/17 10:00 79 18 100/53 96 Mechanical Ventilator 35 03/19/17 09:14 85 28 35 03/19/17 09:00 82 111/87 03/19/17 09:00 80 17 111/87 97 Mechanical Ventilator 35 03/19/17 08:00 97.4 85 23 98/76 97 Mechanical Ventilator 35 03/19/17 08:00 85 03/19/17 08:00 35 03/19/17 07:00 83 20 110/59 96 Mechanical Ventilator 35 03/19/17 06:52 84 24 35 03/19/17 06:00 85 19 107/58 98 Mechanical Ventilator 35 03/19/17 05:00 84 28 102/59 98 Mechanical Ventilator 35 03/19/17 04:58 80 16 35 03/19/17 04:00 98.1 83 28 107/69 98 Mechanical Ventilator 35 03/19/17 04:00 35 03/19/17 04:00 83 03/19/17 03:25 82 17 35 03/19/17 03:00 85 26 106/58 98 Mechanical Ventilator 35 03/19/17 02:00 82 24 121/67 98 Mechanical Ventilator 35 03/19/17 01:05 88 30 35 03/19/17 01:00 89 21 110/69 97 Mechanical Ventilator 35 03/19/17 00:00 98.3 88 25 111/70 97 Mechanical Ventilator 35 03/18/17 23:00 89 25 107/69 98 Mechanical Ventilator 35 03/18/17 22:40 85 22 35 03/18/17 22:00 87 20 102/81 97 Mechanical Ventilator 35 03/18/17 21:01 90 128/60 03/18/17 21:00 91 26 125/72 96 Mechanical Ventilator 35 03/18/17 20:57 94 27 35 Intake and Output 03/18/17 03/19/17 19:00 07:00 Intake Total 660 ml 165 ml Output Total 885 ml 750 ml Balance -225 ml -585 ml IV Total 110 ml Tube Feeding 660 ml 55 ml Output Urine Total 885 ml 750 ml # Bowel Movements 2 5 Laboratory Tests 03/19/17 06:00: White Blood Count 9.8, Red Blood Count 3.70L, Hemoglobin 10.8L, Hematocrit 34.0L , Mean Corpuscular Volume 92, Mean Corpuscular Hemoglobin 29.2, Mean Corpuscular Hemoglobin Concent 31.8L, Red Cell Distribution Width 13.2, Platelet Count 465H, Mean Platelet Volume 6.1L, Neutrophils (%) (Auto) 56.8, Lymphocytes (%) (Auto) 26.5, Monocytes (%) (Auto) 10.2H, Eosinophils (%) (Auto) 5.4H, Basophils (%) (Auto) 1.1, Erythrocyte Sedimentation Rate 79H, Sodium Level 144, Potassium Level 3.8, Chloride Level 111H, Carbon Dioxide Level 29, Anion Gap 4L, Blood Urea Nitrogen 13, Creatinine 1.0, Estimat Glomerular Filtration Rate > 60, Glucose Level 90, Calcium Level 7.7L, Phosphorus Level 3.0 , Magnesium Level 2.2, Total Bilirubin 0.4, Aspartate Amino Transf (AST/SGOT) 57H, Alanine Aminotransferase (ALT/SGPT) 45, Alkaline Phosphatase 107, C- Reactive Protein, Quantitative 1.2H, Total Protein 7.1, Albumin 1.9L, Globulin 5.2, Albumin/Globulin Ratio 0.4L 03/19/17 07:00: Arterial Blood pH 7.500H, Arterial Blood Partial Pressure CO2 36.6, Arterial Blood Partial Pressure O2 90.5, Arterial Blood HCO3 28.1H, Arterial Blood Oxygen Saturation 97.0, Arterial Blood Base Excess 4.9, Ulises Test Positive Height (Feet): 5 Height (Inches): 8.00 Weight (Pounds): 157 General Appearance: no apparent distress EENT: normal ENT inspection Neck: normal alignment Cardiovascular: regular rhythm Respiratory/Chest: lungs clear Abdomen: no organomegaly Edema: 1+ Leg (L), 1+ Leg (R) Edema: mild edema Neurologic: alert Skin: warm/dry Justin Anthony Mar 19, 2017 20:16
[2017-03-19] MEDS ORDERED: Atorvastatin 20mg tab ORAL SCH (21:00)
[2017-03-19] MEDS: Miralax 17gm pkt ORAL SCH (21:00)
[2017-03-19] MEDS: Dyna-Hex 2% Top Sol 2oz TOPIC SCH (21:32)
[2017-03-20] VITALS (22 sets, daily range): BP systolic 93–122; BP diastolic 56–77
[2017-03-20] MEDS: Meropenem 1gm in NS 55ml IVPB SCH ×2 (05:46→13:51)
[2017-03-20] MEDS: Vancomycin 750mg/NS 250ml IVPB SCH (05:47)
[2017-03-20] MEDS ORDERED: Aspirin Baby 81mg ORAL SCH (09:00)
[2017-03-20] MEDS: Docusate 100mg/10ml Liq GT SCH ×2 (09:40→17:43)
[2017-03-20] MEDS: Pantoprazole Inj IVP SCH ×2 (09:40→21:43)
--- NOTE | 2017-03-20 10:03 | 48 Hour Post Anesthesia Eval ---
Post Anesthesia Evaluation Procedure: Tracheostomy Date of Evaluation: Mar 20, 2017 Time of Evaluation: 10:02 Blood Pressure Systolic: 124 0: 75 Pulse Rate: 76 Respiratory Rate: 24 Temperature (Fahrenheit): 97.8 O2 Sat by Pulse Oximetry: 98 Airway: patent Nausea: No Vomiting: No Pain Intensity: 2 Hydration Status: adequate Cardiopulmonary Status: stable Mental Status/LOC: patient returned to baseline Follow-up Care/Observations: n/a Post-Anesthesia Complications: none AEMENA RODRIGUEZ M.D. Mar 20, 2017 10:03
[2017-03-20 10:47] LABS: BASOPHILS % (AUTO) 1.2 % (0.0-2.0); EOSINOPHILS % (AUTO) 4.2 % (0.0-3.0); HEMATOCRIT 38.2 % (42.0-52.0); HEMOGLOBIN 11.8 G/DL (14.2-18.0); LYMPHOCYTES % (AUTO) 21.7 % (20.0-45.0); MEAN CORPUSCULAR VOLUME 92 FL (80-99); MONOCYTES % (AUTO) 7.7 % (1.0-10.0); NEUTROPHILS % (AUTO) 65.1 % (45.0-75.0); PLATELET COUNT 535 K/UL (150-450); RED BLOOD COUNT 4.14 M/UL (4.70-6.10); RED CELL DISTRIBUTION WIDTH 13.5 % (11.6-14.8)
[2017-03-20 12:05] LABS: ALANINE AMINOTRANSFERASE 45 U/L (12-78); ALBUMIN 2.1 G/DL (3.4-5.0); ALBUMIN/GLOBULIN RATIO 0.4 (1.0-2.7); ALKALINE PHOSPHATASE 121 U/L (46-116); ANION GAP 10 mmol/L (5-15); ASPARTATE AMINO TRANSFERASE 51 U/L (15-37); BILIRUBIN,TOTAL 0.5 MG/DL (0.2-1.0); BLOOD UREA NITROGEN 14 mg/dL (7-18); CALCIUM 7.7 MG/DL (8.5-10.1); CARBON DIOXIDE 23 MMOL/L (21-32); CHLORIDE 110 MMOL/L (98-107); PHOSPHORUS 2.6 MG/DL (2.5-4.9); POTASSIUM 4.2 MMOL/L (3.5-5.1); SODIUM 143 MMOL/L (136-145)
--- NOTE | 2017-03-20 12:37 | Nephrology Progress Note ---
Assessment/Plan Problem List: (1) Respiratory disorder with ventilator dependence (2) UTI (urinary tract infection) (3) Hypernatremia (4) Acute renal failure Assessment - Na 148 - Acute renal failure cr 1.1 to 2.4 to 2.1 to 1.9 to 1.5 WNL - Chronic paranoid schizophrenia - Respiratory disorder with ventilator dependence - Healthcare associated bacterial pneumonia - UTI (urinary tract infection) - SIRS (systemic inflammatory response syndrome) - Alzheimer disease - Hypokalemia - Hypernatremia / due to water deficit improving with D5 resolving Plan plan: now trached stable from renal stand K supplement as needed Water NGT Pulm support Antibiotics monitor renal parameters per orders Subjective ROS Limited/Unobtainable: Yes Objective Objective Last 24 Hour Vital Signs Date Time Temp Pulse Resp B/P (MAP) Pulse Ox O2 Delivery O2 Flow Rate FiO2 03/20/17 12:00 35 03/20/17 11:00 88 20 102/62 96 Mechanical Ventilator 35 03/20/17 10:59 91 29 35 03/20/17 10:03 76 24 98 03/20/17 10:00 90 21 103/63 94 Mechanical Ventilator 35 03/20/17 09:40 96 107/65 03/20/17 09:27 96 38 35 03/20/17 09:00 96 22 119/62 96 Mechanical Ventilator 35 03/20/17 08:00 35 03/20/17 08:00 98.4 97 18 107/65 95 Mechanical Ventilator 35 03/20/17 08:00 95 03/20/17 07:00 96 16 118/58 95 Mechanical Ventilator 35 03/20/17 06:59 97 38 35 03/20/17 06:00 91 21 95/57 95 Mechanical Ventilator 35 03/20/17 05:06 96 31 35 03/20/17 05:00 96 20 119/74 95 Mechanical Ventilator 35 03/20/17 04:00 97.7 93 16 110/73 95 Mechanical Ventilator 35 03/20/17 04:00 35 03/20/17 04:00 94 03/20/17 03:19 94 31 35 03/20/17 03:00 91 16 113/68 95 Mechanical Ventilator 35 03/20/17 02:00 90 16 116/68 95 Mechanical Ventilator 35 03/20/17 01:30 97.7 94 16 118/63 95 Mechanical Ventilator 35 03/20/17 01:00 99.3 96 28 114/71 94 Mechanical Ventilator 35 03/20/17 00:30 95 32 35 03/20/17 00:00 97.7 82 26 99/61 99 Mechanical Ventilator 35 03/20/17 00:00 83 03/20/17 00:00 35 03/19/17 23:00 91 26 115/66 96 Mechanical Ventilator 35 03/19/17 22:50 92 28 35 03/19/17 22:00 96 26 125/65 96 Mechanical Ventilator 35 03/19/17 21:32 95 111/76 03/19/17 21:14 95 22 35 03/19/17 21:00 94 27 117/79 96 Mechanical Ventilator 35 03/19/17 20:08 95 22 Mechanical Ventilator 35 03/19/17 20:00 97.2 93 26 123/81 96 Mechanical Ventilator 35 03/19/17 20:00 35 03/19/17 20:00 85 03/19/17 19:29 93 25 35 03/19/17 19:00 91 16 111/76 96 Mechanical Ventilator 35 03/19/17 18:00 97.7 82 26 111/76 97 03/19/17 17:03 89 21 35 03/19/17 17:00 35 03/19/17 17:00 98.8 85 22 122/74 95 03/19/17 16:00 98.8 85 22 122/74 95 03/19/17 16:00 87 03/19/17 15:00 87 21 109/71 92 Mechanical Ventilator 35 03/19/17 14:57 88 26 35 03/19/17 14:00 85 26 121/70 92 Mechanical Ventilator 35 03/19/17 13:59 86 20 99 03/19/17 12:43 84 25 35 Intake and Output 03/19/17 03/20/17 19:00 07:00 Intake Total 215 ml 1011.667 ml Output Total 880 ml 635 ml Balance -665 ml 376.667 ml IV Total 170 ml 301.667 ml Tube Feeding 45 ml 660 ml Other 50 ml Output Urine Total 880 ml 635 ml # Bowel Movements 1 3 Laboratory Tests 03/20/17 04:00: Arterial Blood pH 7.490H, Arterial Blood Partial Pressure CO2 34.4L, Arterial Blood Partial Pressure O2 79.8, Arterial Blood HCO3 25.9, Arterial Blood Oxygen Saturation 96.0, Arterial Blood Base Excess 2.9, Ulises Test Positive 03/20/17 10:15: White Blood Count 12.0H, Red Blood Count 4.14L, Hemoglobin 11.8L, Hematocrit 38.2L, Mean Corpuscular Volume 92, Mean Corpuscular Hemoglobin 28.6, Mean Corpuscular Hemoglobin Concent 31.0L, Red Cell Distribution Width 13.5, Platelet Count 535H, Mean Platelet Volume 6.1L, Neutrophils (%) (Auto) 65.1, Lymphocytes (%) (Auto) 21.7, Monocytes (%) (Auto) 7.7, Eosinophils (%) (Auto) 4.2H, Basophils (%) (Auto) 1.2, Sodium Level 143, Potassium Level 4.2, Chloride Level 110H, Carbon Dioxide Level 23, Anion Gap 10, Blood Urea Nitrogen 14, Creatinine 1.0, Estimat Glomerular Filtration Rate > 60, Glucose Level 147H, Calcium Level 7.7L, Phosphorus Level 2.6, Magnesium Level 1.9, Total Bilirubin 0.5, Aspartate Amino Transf (AST/SGOT) 51H, Alanine Aminotransferase (ALT/SGPT) 45, Alkaline Phosphatase 121H, Total Protein 6.9, Albumin 2.1L, Globulin 4.8, Albumin/Globulin Ratio 0.4L Height (Feet): 5 Height (Inches): 8.00 Weight (Pounds): 150 General Appearance: no apparent distress Cardiovascular: regular rhythm Respiratory/Chest: decreased breath sounds Abdomen: soft Objective no change CHACHA NUNES Mar 20, 2017 12:37
--- NOTE | 2017-03-20 12:51 | General Progress Note ---
Progress Note Progress Note POD #1 s/p trach. doing well. no issues. much more responsive today. downgraded from ICU. now responds to painful stimuli and almost opens his eyes. trach in place and functional. no bleeding or issues. dressings changed. -cont to wean as tolerated. -trach care and management -dressings daily and prn Trent Livingston Mar 20, 2017 12:51
--- NOTE | 2017-03-20 14:45 | Infectious Diseases Prog Note ---
Assessment/Plan Assessment/Plan ASSESSMENT: The patient is a 71-year-old male with: Aerococcus urinae bacteremia- ?source UTI however Ucx neg; r/o endocarditis as has been associated with endocarditis in the elderly. -03/03 Bcx / +; 03/06 Neg x4 -Elevated CRp 21.0 03/06; CRP 1.2 03/19 (improving) -03/03 TTE: no vegetations, no significant valve abnormalities 03/16 CONS bacteremia-likely contaminant 03/12 03/16, 03/15 Bccx NTD x4 Sepsis, SP fever/SP -CT chest/abd/p w/: Somewhat limited exam due to motion artifact. Right upper lobe, right lower lobe, and left lower lobe atelectasis and consolidation. Likely pneumonia, otherwise nonspecific. Elevated right hemidiaphragm. Small left pleural effusion. Satisfactory positions of endotracheal and nasogastric tubes. No acute abdominal process. Degenerative lumbar spondylosis. Colonic interposition incidentally noted. Colonic diverticulosis. Beltran catheter. Prominent prostate. Degenerative changes of the right hip with heterotopic ossification Leukocytosis ,mild ( post op ) Sp change of trach 03/19 HCAP Scx : ESBL EColi ; repeat SCx : 03/17 Annemarie : colonizer -sp cx 03/11 +1 C. albicans(colonizer); -CXR 03/17: Right upper lobe reticular consolidation persists, probably not significantly changed. There appears to be slightly improved retrocardiac aeration, but consolidation and atelectasis persists. There is decreased reticular consolidation in the left lung apex. There may be atelectasis of a of the left lower lobe; if so this is unchanged. -CXR 03/11: persistent extensive right upper lobe infiltrate. Infiltrate and pleural fluid in the left mid and lower lung persist, are probably unchanged allowing for slightly greater lung volumes on the current exam. -CXR 03/09: New right pulmonary infiltrate. Possible urinary tract infection 03/04 ucx neg; repeat u/a 03/11 u/a no pyuria Elevated inflammatory markers -ESR 94, CRP 14.2 03/11> 8 03/14; improving Influenza negative AST Elevation s/p PICC line 03/09 Positive cardiac enzymes. Acute renal failure, improving Dysphagia. Osteoarthritis. Hypertension. COPD. History of GERD History of H. pylori in the past Dementia with psychosis PLAN: continue IV Merrem d# 13 /14 for ESBL PNA and aerococcus bacteremia and empiric IV Vancomycin # 10/10 given new infiltrate 03/15 SP Dapto x1 03/08 SP vancomycin d# 5 03/07 SP Zosyn d# 4 -may need to remove PICC line if recurrent ConS bacteremia or persistent fevers with no obvious source. Monitor CBC/CMP. Monitor cultures (blood ) Monitor chest x-ray. Monitor renal function. Subjective Subjective Allergies: Coded Allergies: No Known Allergies (Unverified , 10/20/16) Subjective afebrile Objective Vital Signs Last 24 Hour Vital Signs Date Time Temp Pulse Resp B/P (MAP) Pulse Ox O2 Delivery O2 Flow Rate FiO2 03/20/17 13:00 86 21 102/65 95 Mechanical Ventilator 35 03/20/17 12:39 88 23 35 03/20/17 12:00 98.2 88 19 102/56 99 Mechanical Ventilator 35 03/20/17 12:00 35 03/20/17 11:00 88 20 102/62 96 Mechanical Ventilator 35 03/20/17 10:59 91 29 35 03/20/17 10:03 76 24 98 03/20/17 10:00 90 21 103/63 94 Mechanical Ventilator 35 03/20/17 09:40 96 107/65 03/20/17 09:27 96 38 35 03/20/17 09:00 96 22 119/62 96 Mechanical Ventilator 35 03/20/17 08:00 35 03/20/17 08:00 98.4 97 18 107/65 95 Mechanical Ventilator 35 03/20/17 08:00 95 03/20/17 07:00 96 16 118/58 95 Mechanical Ventilator 35 03/20/17 06:59 97 38 35 03/20/17 06:00 91 21 95/57 95 Mechanical Ventilator 35 03/20/17 05:06 96 31 35 03/20/17 05:00 96 20 119/74 95 Mechanical Ventilator 35 03/20/17 04:00 97.7 93 16 110/73 95 Mechanical Ventilator 35 03/20/17 04:00 35 03/20/17 04:00 94 03/20/17 03:19 94 31 35 03/20/17 03:00 91 16 113/68 95 Mechanical Ventilator 35 03/20/17 02:00 90 16 116/68 95 Mechanical Ventilator 35 03/20/17 01:30 97.7 94 16 118/63 95 Mechanical Ventilator 35 03/20/17 01:00 99.3 96 28 114/71 94 Mechanical Ventilator 35 03/20/17 00:30 95 32 35 03/20/17 00:00 97.7 82 26 99/61 99 Mechanical Ventilator 35 03/20/17 00:00 83 03/20/17 00:00 35 03/19/17 23:00 91 26 115/66 96 Mechanical Ventilator 35 03/19/17 22:50 92 28 35 03/19/17 22:00 96 26 125/65 96 Mechanical Ventilator 35 03/19/17 21:32 95 111/76 03/19/17 21:14 95 22 35 03/19/17 21:00 94 27 117/79 96 Mechanical Ventilator 35 03/19/17 20:08 95 22 Mechanical Ventilator 35 03/19/17 20:00 97.2 93 26 123/81 96 Mechanical Ventilator 35 03/19/17 20:00 35 03/19/17 20:00 85 03/19/17 19:29 93 25 35 03/19/17 19:00 91 16 111/76 96 Mechanical Ventilator 35 03/19/17 18:00 97.7 82 26 111/76 97 03/19/17 17:03 89 21 35 03/19/17 17:00 35 03/19/17 17:00 98.8 85 22 122/74 95 03/19/17 16:00 98.8 85 22 122/74 95 03/19/17 16:00 87 03/19/17 15:00 87 21 109/71 92 Mechanical Ventilator 35 03/19/17 14:57 88 26 35 Height (Feet): 5 Height (Inches): 8.00 Weight (Pounds): 150 HEENT: atraumatic Respiratory/Chest: lungs clear Cardiovascular: regular rhythm Abdomen: no organomegaly Laboratory Tests Test 03/20/17 04:00 03/20/17 10:15 Arterial Blood pH 7.490 (7.350-7.450) Arterial Blood Partial Pressure CO2 34.4 mmHg (35.0-45.0) L Arterial Blood Partial Pressure O2 79.8 mmHg (75.0-100.0) Arterial Blood HCO3 25.9 mmol/L (22.0-26.0) Arterial Blood Oxygen Saturation 96.0 % (92.0-98.0) Arterial Blood Base Excess 2.9 Ulises Test Positive White Blood Count 12.0 K/UL (4.8-10.8) H Red Blood Count 4.14 M/UL (4.70-6.10) L Hemoglobin 11.8 G/DL (14.2-18.0) L Hematocrit 38.2 % (42.0-52.0) L Mean Corpuscular Volume 92 FL (80-99) Mean Corpuscular Hemoglobin 28.6 PG (27.0-31.0) Mean Corpuscular Hemoglobin Concent 31.0 G/DL (32.0-36.0) L Red Cell Distribution Width 13.5 % (11.6-14.8) Platelet Count 535 K/UL (150-450) H Mean Platelet Volume 6.1 FL (6.5-10.1) L Neutrophils (%) (Auto) 65.1 % (45.0-75.0) Lymphocytes (%) (Auto) 21.7 % (20.0-45.0) Monocytes (%) (Auto) 7.7 % (1.0-10.0) Eosinophils (%) (Auto) 4.2 % (0.0-3.0) H Basophils (%) (Auto) 1.2 % (0.0-2.0) Sodium Level 143 MMOL/L (136-145) Potassium Level 4.2 MMOL/L (3.5-5.1) Chloride Level 110 MMOL/L (98-107) H Carbon Dioxide Level 23 MMOL/L (21-32) Anion Gap 10 mmol/L (5-15) Blood Urea Nitrogen 14 mg/dL (7-18) Creatinine 1.0 MG/DL (0.55-1.30) Estimat Glomerular Filtration Rate > 60 mL/min (>60) Glucose Level 147 MG/DL (74-106) H Calcium Level 7.7 MG/DL (8.5-10.1) L Phosphorus Level 2.6 MG/DL (2.5-4.9) Magnesium Level 1.9 MG/DL (1.8-2.4) Total Bilirubin 0.5 MG/DL (0.2-1.0) Aspartate Amino Transf (AST/SGOT) 51 U/L (15-37) H Alanine Aminotransferase (ALT/SGPT) 45 U/L (12-78) Alkaline Phosphatase 121 U/L (46-116) H Total Protein 6.9 G/DL (6.4-8.2) Albumin 2.1 G/DL (3.4-5.0) L Globulin 4.8 g/dL Albumin/Globulin Ratio 0.4 (1.0-2.7) L Current Medications Medications (Trade) Dose Ordered Sig/Ant Route PRN Reason Start Time Stop Time Status Last Admin Dose Admin Acetaminophen (Tylenol) 650 mg Q4H PRN ORAL Mild Pain/Temp > 100.5 03/04/17 08:45 04/03/17 08:44 03/13/17 21:06 Albuterol/ Ipratropium (Albuterol/ Ipratropium) 3 ml Q6HRT HHN 03/09/17 13:00 03/14/17 23:59 03/13/17 19:51 Artificial Tears (Akwa-Tears) 2 drop Q2H PRN BOTH EYES Dry Eyes 03/09/17 09:15 04/08/17 09:14 03/13/17 08:49 Aspirin (ASA) 81 mg DAILY ORAL 03/20/17 09:00 04/19/17 08:59 03/20/17 09:40 Atorvastatin Calcium (Lipitor) 40 mg BEDTIME ORAL 03/19/17 21:00 04/18/17 20:59 03/19/17 21:41 Carvedilol (Coreg) 3.125 mg EVERY 12 HOURS PEG 03/13/17 09:00 04/12/17 08:59 03/20/17 09:40 Chlorhexidine Gluconate (Lisa-Hex 2%) 1 applic DAILY@1999 TOPIC 03/09/17 20:00 04/08/17 19:59 03/19/17 21:32 Docusate Sodium (Colace) 100 mg BID GT 03/11/17 21:30 04/10/17 21:29 03/20/17 09:40 Lorazepam (Ativan 2mg/ml 1ml) 2 mg Q4H PRN IV For Anxiety 03/17/17 12:00 03/24/17 11:59 03/18/17 00:31 Meropenem 1 gm/ Sodium Chloride 55 ml @ 110 mls/hr Q8HR@0600,1400,2200 IVPB 03/14/17 16:00 03/21/17 15:59 03/20/17 13:51 Morphine Sulfate (Morphine Sulfate) 2 mg Q4H PRN IVP Severe Pain (Pain Scale 7-10) 03/17/17 12:00 03/24/17 11:59 Pantoprazole (Protonix) 40 mg Q12HR IVP 03/04/17 21:00 04/03/17 20:59 03/20/17 09:40 Polyethylene Glycol (Miralax) 17 gm BEDTIME ORAL 03/11/17 21:30 04/10/17 21:29 03/17/17 20:45 Vancomycin HCl (Vanco rx to dose) 1 ea DAILY PRN MISC Per rx protocol 03/11/17 10:00 04/10/17 09:59 Vancomycin/Sodium Chloride 250 ml @ 166.667 mls/hr Q12HR@0600,1800 IVPB 03/16/17 18:00 03/21/17 17:59 03/20/17 05:47 NATALY STEPHENSON M.D. Mar 20, 2017 14:45
[2017-03-20] MEDS ORDERED: Albuterol/Ipratropium 3ml neb HHN PRN ×2 (17:00→21:00)
--- NOTE | 2017-03-20 17:08 | Pulmonology Progress Note ---
Assessment/Plan Assessment/Plan ASSESSMENT sepsis with shock (resolved shock) acute hypoxemic RF requiring intubation 03/04 failure to wean s/p trac placement 03/19 bacteremia with Aerococcus PNA with E coli ESBL possible UTI acute renal failure possible ATN dehydration Hypernatremia ( due to free water deficit) e/lyte imbalance : hypo K, hypo P-resolved COPD Alzheimer dementia severe protein calorie malnutrition moderate pulmonary HTN elevated AST Hx of HTN thrombocytopenia dysphagia OA PLAN OF CARE TOÑITO vent support, trach care ,pulmonary toilet surgery follows trach functional no bleeding, no other issues ABG this am 03/20 stable on current settings fup with CXR CT C/A/P with evidence of R sided consolidation abx, ID follows , abx managements per ID sputum cx + E coli ESBL, urine cx negative, initially 03/18 blood cx + Aerococcus , repeated blood cx negative UTD, ID wants to r/o endocarditis ECHO with grossly preserved EF and normal wall motion to the extent visualized, + evidence of moderate pulmonary HTN s/p PICC 03/09 renal parameters improved, creat down to normal, Na down to normal, s/p IVF nephro follows monitor lytes, correct as needed monitor cardiorenal parameters, volumes, avoid nephrotoxic cardio follows troponin noted fup with cardio recommendation: ASA, BB, no need for diuresis for now ECHO DVT GI prophylaxis monitor counts,heme follows monitor LFT, strict aspiration precautions, NGT feeding with dietary recom re TF type and goal rate GI eval re PEG placement wound care pain management bowel regimen Case discussed and evaluated by supervising physician Subjective Allergies: Coded Allergies: No Known Allergies (Unverified , 10/20/16) Subjective s/p trach 03/19 no bleeding no signs of resp distress Objective Last 24 Hour Vital Signs Date Time Temp Pulse Resp B/P (MAP) Pulse Ox O2 Delivery O2 Flow Rate FiO2 03/20/17 16:00 98.1 90 20 98/59 96 Mechanical Ventilator 35 03/20/17 16:00 93 03/20/17 16:00 35 03/20/17 15:07 85 29 35 03/20/17 15:00 86 22 120/70 97 Mechanical Ventilator 35 03/20/17 14:00 87 21 118/77 95 Mechanical Ventilator 35 03/20/17 13:00 86 21 102/65 95 Mechanical Ventilator 35 03/20/17 12:39 88 23 35 03/20/17 12:00 88 03/20/17 12:00 98.2 88 19 102/56 99 Mechanical Ventilator 35 03/20/17 12:00 35 03/20/17 11:00 88 20 102/62 96 Mechanical Ventilator 35 03/20/17 10:59 91 29 35 03/20/17 10:03 76 24 98 03/20/17 10:00 90 21 103/63 94 Mechanical Ventilator 35 03/20/17 09:40 96 107/65 03/20/17 09:27 96 38 35 03/20/17 09:00 96 22 119/62 96 Mechanical Ventilator 35 03/20/17 08:00 35 03/20/17 08:00 98.4 97 18 107/65 95 Mechanical Ventilator 35 03/20/17 08:00 95 03/20/17 07:00 96 16 118/58 95 Mechanical Ventilator 35 03/20/17 06:59 97 38 35 03/20/17 06:00 91 21 95/57 95 Mechanical Ventilator 35 03/20/17 05:06 96 31 35 03/20/17 05:00 96 20 119/74 95 Mechanical Ventilator 35 03/20/17 04:00 97.7 93 16 110/73 95 Mechanical Ventilator 35 03/20/17 04:00 35 03/20/17 04:00 94 03/20/17 03:19 94 31 35 03/20/17 03:00 91 16 113/68 95 Mechanical Ventilator 35 03/20/17 02:00 90 16 116/68 95 Mechanical Ventilator 35 03/20/17 01:30 97.7 94 16 118/63 95 Mechanical Ventilator 35 03/20/17 01:00 99.3 96 28 114/71 94 Mechanical Ventilator 35 03/20/17 00:30 95 32 35 03/20/17 00:00 97.7 82 26 99/61 99 Mechanical Ventilator 35 03/20/17 00:00 83 03/20/17 00:00 35 03/19/17 23:00 91 26 115/66 96 Mechanical Ventilator 35 03/19/17 22:50 92 28 35 03/19/17 22:00 96 26 125/65 96 Mechanical Ventilator 35 03/19/17 21:32 95 111/76 03/19/17 21:14 95 22 35 03/19/17 21:00 94 27 117/79 96 Mechanical Ventilator 35 03/19/17 20:08 95 22 Mechanical Ventilator 35 03/19/17 20:00 97.2 93 26 123/81 96 Mechanical Ventilator 35 03/19/17 20:00 35 03/19/17 20:00 85 03/19/17 19:29 93 25 35 03/19/17 19:00 91 16 111/76 96 Mechanical Ventilator 35 03/19/17 18:00 97.7 82 26 111/76 97 03/19/17 17:03 89 21 35 03/19/17 17:00 35 03/19/17 17:00 98.8 85 22 122/74 95 Intake and Output 03/19/17 03/20/17 19:00 07:00 Intake Total 215 ml 1011.667 ml Output Total 880 ml 635 ml Balance -665 ml 376.667 ml IV Total 170 ml 301.667 ml Tube Feeding 45 ml 660 ml Other 50 ml Output Urine Total 880 ml 635 ml # Bowel Movements 1 3 General Appearance: other - AA male on vent AC 450-16-40% HEENT: normocephalic, atraumatic, status post trach, other - NGT with TF Respiratory/Chest: lungs clear, no respiratory distress Cardiovascular: normal rate, regular rhythm - SR on tele , other - PICC LUE intact Abdomen: normal bowel sounds, soft, non tender Neurologic/Psychiatric: abnormal gait, other - arousable, open eyes Musculoskeletal: atrophy - BLE Laboratory Tests 03/20/17 04:00: Arterial Blood pH 7.490H, Arterial Blood Partial Pressure CO2 34.4L, Arterial Blood Partial Pressure O2 79.8, Arterial Blood HCO3 25.9, Arterial Blood Oxygen Saturation 96.0, Arterial Blood Base Excess 2.9, Ulises Test Positive 03/20/17 10:15: White Blood Count 12.0H, Red Blood Count 4.14L, Hemoglobin 11.8L, Hematocrit 38.2L, Mean Corpuscular Volume 92, Mean Corpuscular Hemoglobin 28.6, Mean Corpuscular Hemoglobin Concent 31.0L, Red Cell Distribution Width 13.5, Platelet Count 535H, Mean Platelet Volume 6.1L, Neutrophils (%) (Auto) 65.1, Lymphocytes (%) (Auto) 21.7, Monocytes (%) (Auto) 7.7, Eosinophils (%) (Auto) 4.2H, Basophils (%) (Auto) 1.2, Sodium Level 143, Potassium Level 4.2, Chloride Level 110H, Carbon Dioxide Level 23, Anion Gap 10, Blood Urea Nitrogen 14, Creatinine 1.0, Estimat Glomerular Filtration Rate > 60, Glucose Level 147H, Calcium Level 7.7L, Phosphorus Level 2.6, Magnesium Level 1.9, Total Bilirubin 0.5, Aspartate Amino Transf (AST/SGOT) 51H, Alanine Aminotransferase (ALT/SGPT) 45, Alkaline Phosphatase 121H, Total Protein 6.9, Albumin 2.1L, Globulin 4.8, Albumin/Globulin Ratio 0.4L Current Medications Medications (Trade) Dose Ordered Sig/Ant Route PRN Reason Start Time Stop Time Status Last Admin Dose Admin Acetaminophen (Tylenol) 650 mg Q4H PRN ORAL Mild Pain/Temp > 100.5 03/04/17 08:45 04/03/17 08:44 03/13/17 21:06 Albuterol/ Ipratropium (Albuterol/ Ipratropium) 3 ml Q6HRT HHN 03/09/17 13:00 03/14/17 23:59 03/13/17 19:51 Artificial Tears (Akwa-Tears) 2 drop Q2H PRN BOTH EYES Dry Eyes 03/09/17 09:15 04/08/17 09:14 03/13/17 08:49 Aspirin (ASA) 81 mg DAILY ORAL 03/20/17 09:00 04/19/17 08:59 03/20/17 09:40 Atorvastatin Calcium (Lipitor) 40 mg BEDTIME ORAL 03/19/17 21:00 04/18/17 20:59 03/19/17 21:41 Carvedilol (Coreg) 3.125 mg EVERY 12 HOURS PEG 03/13/17 09:00 04/12/17 08:59 03/20/17 09:40 Chlorhexidine Gluconate (Lisa-Hex 2%) 1 applic DAILY@1999 TOPIC 03/09/17 20:00 04/08/17 19:59 03/19/17 21:32 Docusate Sodium (Colace) 100 mg BID GT 03/11/17 21:30 04/10/17 21:29 03/20/17 09:40 Lorazepam (Ativan 2mg/ml 1ml) 2 mg Q4H PRN IV For Anxiety 03/17/17 12:00 03/24/17 11:59 03/18/17 00:31 Meropenem 1 gm/ Sodium Chloride 55 ml @ 110 mls/hr Q8HR@0600,1400,2200 IVPB 03/14/17 16:00 03/21/17 15:59 03/20/17 13:51 Morphine Sulfate (Morphine Sulfate) 2 mg Q4H PRN IVP Severe Pain (Pain Scale 7-10) 03/17/17 12:00 03/24/17 11:59 Pantoprazole (Protonix) 40 mg Q12HR IVP 03/04/17 21:00 04/03/17 20:59 03/20/17 09:40 Polyethylene Glycol (Miralax) 17 gm BEDTIME ORAL 03/11/17 21:30 04/10/17 21:29 03/17/17 20:45 Kacy Gilliam NP ([facility]) Mar 20, 2017 17:08
--- NOTE | 2017-03-20 18:30 | Consultation ---
DATE OF CONSULTATION: 03/20/2017 GASTROENTEROLOGY CONSULTATION CONSULTING PHYSICIAN: Tr Kaur M.D. CHIEF COMPLAINT: Dysphagia. HISTORY OF PRESENT ILLNESS: Most of the history per chart. The patient is currently intubated with a trach. GI consult requested for possible PEG placement. PAST MEDICAL HISTORY: 1. History of hypertension. 2. COPD. 3. Respiratory failure, requiring trach in this admission. 4. History of gastritis, H. pylori positive. 5. Esophagitis. 6. Hiatal hernia. PAST SURGICAL HISTORY: Tracheostomy. MEDICATIONS: Please see medication reconciliation list. ALLERGIES: No known drug allergies. SOCIAL HISTORY: There is no recent history of tobacco, alcohol, or drug abuse. FAMILY HISTORY: Noncontributory. PHYSICAL EXAMINATION: VITAL SIGNS: The patient is afebrile, pulse is 88, respirations 20, and blood pressure is 102/62. HEENT: Normocephalic, atraumatic. Mild pale conjunctivae. NECK: Supple. No evidence of obvious lymphadenopathy. CARDIOVASCULAR: Regular rhythm plus S1 and S2. No obvious murmur. LUNGS: Decreased breath sounds bilaterally and diffusely. ABDOMEN: Soft, nontender. No rebound. No guarding. No peritoneal signs. EXTREMITIES: No cyanosis, no clubbing, no edema. LABORATORY DATA: White count is 12, hemoglobin 11.8, hematocrit 38, platelet count is 535. ASSESSMENT AND PLAN: This is a 71-year-old male with respiratory failure, dysphagia, now with tracheostomy. The patient most probably will need a percutaneous endoscopic gastrostomy, planned for Wednesday. I want to thank Dr. Uriarte for this kind referral. Tr Kaur M.D. DR: Kyle JOB#: [id number] CC: Rocio Uriarte M.D.; Fax#: [phone]
[2017-03-20] MEDS ORDERED: Artificial Tears 1.4% Op Soln BOTH EYES PRN (19:15)
[2017-03-20] MEDS ORDERED: LORazepam Inj 2mg/ml 1ml IV PRN (20:00)
[2017-03-20] MEDS ORDERED: Morphine Sulfate 2mg/ml Inj IVP PRN (20:00)
[2017-03-20] MEDS: Miralax 17gm pkt ORAL SCH (20:38)
--- NOTE | 2017-03-20 21:00 | Operative Note - Dictated ---
DATE OF OPERATION: 03/19/2017 PREOPERATIVE DIAGNOSIS: Respiratory failure requiring prolonged ventilatory support. POSTOPERATIVE DIAGNOSIS: Respiratory failure requiring prolonged ventilatory support. OPERATION PERFORMED: Tracheostomy. ATTENDING SURGEON: Trent Livingston M.D. ANESTHESIOLOGIST: Too Morley M.D. ANESTHESIA: General GETA. SPECIMENS: None. COMPLICATIONS: None. CONDITION: Stable. FLUIDS: Please see anesthesia records. ESTIMATED BLOOD LOSS: Minimal. IMPLANTS: An 8-[place] Shiley tracheostomy tube placed. ANTIBIOTICS: The patient was on scheduled antibiotics for acute active infection. COUNTS: Sponge and needle counts correct x2. INDICATIONS FOR PROCEDURE: This 71-year-old male with multiple medical comorbidities, who has been recently hospitalized after deteriorating and is currently septic with respiratory failure and ventilatory dependence. The patient has an ET tube on vent for nearly two weeks, but difficulty weaning from the vent. No significant improvement likely and prolonged vent support necessary. Tracheostomy is indicated and recommended. Unfortunately, the patient does not have a power of claim attorney, next of kin, or anyone to consent and he is unable to do so himself given his current medical condition. Two-physician consent was obtained by myself and Dr. Uriarte for procedure that was performed today. OPERATIVE NOTE: The patient was taken to the operating room and placed on the hospital bed in supine position with bilateral arms in. All bony prominences were well padded with GelPads. Following adequate monitoring by Anesthesia Service to maintain sedation, anesthesia was induced. A shoulder roll was placed. The patient's neck was prepped and draped in standard surgical fashion. The neck was then infiltrated with 1% Xylocaine with epinephrine. A collar incision approximately 1 to 2 fingerbreadths above the clavicle was made using a fresh #15 blade. The skin and subcutaneous tissue, platysma, and subplatysmal flaps were elevated superiorly and inferiorly. Strap muscles were in the midline and dissection carried down to the visceral fascia. The trachea was exposed from the cricoid to the fourth ring, which entered down into the chest. The innominate artery was not encountered nor was a significant portion of thyroid isthmus. The trachea was incised around the second ring and a trapdoor was made. A tracheal hook was used during this time to stabilize the trachea in place. Anesthesia services was on board as the ET tube was deflated and slowly withdrawn. Once the ET tube was above the area of the trapdoor, an 8-[place] Shiley tracheostomy was placed without complication. The balloon of the tracheostomy was insufflated and the patient was then ventilated through the tracheostomy tube without complication. Good volumes were obtained. Mucus was suctioned. The tracheostomy tube was then secured to the skin using interrupted 2-0 nylon sutures. A trach tie was placed. Dressings were placed. The patient tolerated the procedure well, was then taken to the intensive care unit in satisfactory condition. Trent Livingston M.D. DR: BILL JOB#: [id number] CC:
[2017-03-20] MEDS: Meropenem 1 GM in NS 55 ML IVPB SCH (21:42)
[2017-03-20] MEDS: Dyna-Hex 2% Top Sol 2oz TOPIC SCH (21:43)
[2017-03-20] MEDS: Atorvastatin 20mg tab ORAL SCH (21:44)
--- NOTE | 2017-03-20 22:33 | General Progress Note ---
Assessment/Plan Status: unchanged Assessment/Plan Assessment/Plan #. Leukocytosis 2/2 Sepsis. ID following, on abx --> improving, continue to follow #. Thrombocytosis likely reactive process, stable #. Anemia of chronic disease. --> Hgb goal above 7. Transfuse as needed, work up has been reviewed --> Has been stable. #. Respiratory failure to proceed with trach #. COPD #. Hypokalemia. #. Hypernatremia. Subjective Allergies: Coded Allergies: No Known Allergies (Unverified , 10/20/16) Subjective Downgraded from ICU. No active bleeding. Wound care done by nurses. On trach. Objective Last 24 Hour Vital Signs Date Time Temp Pulse Resp B/P (MAP) Pulse Ox O2 Delivery O2 Flow Rate FiO2 03/20/17 21:44 92 122/75 03/20/17 20:30 92 26 35 03/20/17 19:02 90 16 35 03/20/17 18:00 95 21 122/75 95 Mechanical Ventilator 35 03/20/17 17:00 92 22 93/69 95 Mechanical Ventilator 35 03/20/17 16:57 89 39 35 03/20/17 16:00 98.1 90 20 98/59 96 Mechanical Ventilator 35 03/20/17 16:00 93 03/20/17 16:00 35 03/20/17 15:07 85 29 35 03/20/17 15:00 86 22 120/70 97 Mechanical Ventilator 35 03/20/17 14:00 87 21 118/77 95 Mechanical Ventilator 35 03/20/17 13:00 86 21 102/65 95 Mechanical Ventilator 35 03/20/17 12:39 88 23 35 03/20/17 12:00 88 03/20/17 12:00 98.2 88 19 102/56 99 Mechanical Ventilator 35 03/20/17 12:00 35 03/20/17 11:00 88 20 102/62 96 Mechanical Ventilator 35 03/20/17 10:59 91 29 35 03/20/17 10:03 76 24 98 03/20/17 10:00 90 21 103/63 94 Mechanical Ventilator 35 03/20/17 09:40 96 107/65 03/20/17 09:27 96 38 35 03/20/17 09:00 96 22 119/62 96 Mechanical Ventilator 35 03/20/17 08:00 35 03/20/17 08:00 98.4 97 18 107/65 95 Mechanical Ventilator 35 03/20/17 08:00 95 03/20/17 07:00 96 16 118/58 95 Mechanical Ventilator 35 03/20/17 06:59 97 38 35 03/20/17 06:00 91 21 95/57 95 Mechanical Ventilator 35 03/20/17 05:06 96 31 35 03/20/17 05:00 96 20 119/74 95 Mechanical Ventilator 35 03/20/17 04:00 97.7 93 16 110/73 95 Mechanical Ventilator 35 03/20/17 04:00 35 03/20/17 04:00 94 03/20/17 03:19 94 31 35 03/20/17 03:00 91 16 113/68 95 Mechanical Ventilator 35 03/20/17 02:00 90 16 116/68 95 Mechanical Ventilator 35 03/20/17 01:30 97.7 94 16 118/63 95 Mechanical Ventilator 35 03/20/17 01:00 99.3 96 28 114/71 94 Mechanical Ventilator 35 03/20/17 00:30 95 32 35 03/20/17 00:00 97.7 82 26 99/61 99 Mechanical Ventilator 35 03/20/17 00:00 83 03/20/17 00:00 35 03/19/17 23:00 91 26 115/66 96 Mechanical Ventilator 35 03/19/17 22:50 92 28 35 Intake and Output 03/19/17 03/20/17 19:00 07:00 Intake Total 215 ml 1011.667 ml Output Total 880 ml 635 ml Balance -665 ml 376.667 ml IV Total 170 ml 301.667 ml Tube Feeding 45 ml 660 ml Other 50 ml Output Urine Total 880 ml 635 ml # Bowel Movements 1 3 Laboratory Tests 03/20/17 04:00: Arterial Blood pH 7.490H, Arterial Blood Partial Pressure CO2 34.4L, Arterial Blood Partial Pressure O2 79.8, Arterial Blood HCO3 25.9, Arterial Blood Oxygen Saturation 96.0, Arterial Blood Base Excess 2.9, Ulises Test Positive 03/20/17 10:15: White Blood Count 12.0H, Red Blood Count 4.14L, Hemoglobin 11.8L, Hematocrit 38.2L, Mean Corpuscular Volume 92, Mean Corpuscular Hemoglobin 28.6, Mean Corpuscular Hemoglobin Concent 31.0L, Red Cell Distribution Width 13.5, Platelet Count 535H, Mean Platelet Volume 6.1L, Neutrophils (%) (Auto) 65.1, Lymphocytes (%) (Auto) 21.7, Monocytes (%) (Auto) 7.7, Eosinophils (%) (Auto) 4.2H, Basophils (%) (Auto) 1.2, Sodium Level 143, Potassium Level 4.2, Chloride Level 110H, Carbon Dioxide Level 23, Anion Gap 10, Blood Urea Nitrogen 14, Creatinine 1.0, Estimat Glomerular Filtration Rate > 60, Glucose Level 147H, Calcium Level 7.7L, Phosphorus Level 2.6, Magnesium Level 1.9, Total Bilirubin 0.5, Aspartate Amino Transf (AST/SGOT) 51H, Alanine Aminotransferase (ALT/SGPT) 45, Alkaline Phosphatase 121H, Total Protein 6.9, Albumin 2.1L, Globulin 4.8, Albumin/Globulin Ratio 0.4L Height (Feet): 5 Height (Inches): 8.00 Weight (Pounds): 150 General Appearance: no apparent distress EENT: normal ENT inspection Neck: non-tender, normal alignment Cardiovascular: normal rate, regular rhythm Respiratory/Chest: lungs clear Abdomen: non tender Edema: 1+ Arm (L), 1+ Arm (R) Edema: mild edema Justin Anthony Mar 20, 2017 22:33
[2017-03-20] MEDS ORDERED: Tubing IV Secondary IV ONE (22:52)
[2017-03-21] VITALS: BP 110/67
[2017-03-21 04:00] VITALS: BP 101/57
[2017-03-21] MEDS: Meropenem 1 GM in NS 55 ML IVPB SCH ×3 (06:07→23:04)
[2017-03-21] MEDS: Albuterol/Ipratropium 3ml neb HHN SCH ×4 (07:38→21:46)
[2017-03-21 07:47] LABS: BASOPHILS % (AUTO) 1.3 % (0.0-2.0); EOSINOPHILS % (AUTO) 4.4 % (0.0-3.0); HEMATOCRIT 37.7 % (42.0-52.0); HEMOGLOBIN 11.6 G/DL (14.2-18.0); LYMPHOCYTES % (AUTO) 20.5 % (20.0-45.0); MEAN CORPUSCULAR VOLUME 92 FL (80-99); MONOCYTES % (AUTO) 8.2 % (1.0-10.0); NEUTROPHILS % (AUTO) 65.6 % (45.0-75.0); PLATELET COUNT 499 K/UL (150-450); RED BLOOD COUNT 4.09 M/UL (4.70-6.10); RED CELL DISTRIBUTION WIDTH 13.6 % (11.6-14.8); WHITE BLOOD COUNT 12.1 K/UL (4.8-10.8)
[2017-03-21 07:57] LABS: ANION GAP 7 mmol/L (5-15); BLOOD UREA NITROGEN 14 mg/dL (7-18); CALCIUM 7.7 MG/DL (8.5-10.1); CARBON DIOXIDE 24 MMOL/L (21-32); CHLORIDE 109 MMOL/L (98-107); CREATININE 0.9 MG/DL (0.55-1.30); POTASSIUM 3.6 MMOL/L (3.5-5.1); SODIUM 140 MMOL/L (136-145)
[2017-03-21 08:00] VITALS: BP 137/98
[2017-03-21] MEDS: Aspirin Baby 81mg ORAL SCH (08:20)
[2017-03-21] MEDS: Pantoprazole Inj IVP SCH ×2 (08:20→20:27)
[2017-03-21] MEDS: Docusate 100mg/10ml Liq GT SCH ×2 (08:20→18:20)
--- NOTE | 2017-03-21 11:34 | General Progress Note ---
Assessment/Plan Problem List: (1) senior living resident ICD Codes: Z59.3 - Problems related to living in residential institution SNOMED: 021329851 (2) Esophagitis ICD Codes: K20.9 - Esophagitis, unspecified SNOMED: 28947919 (3) COPD (chronic obstructive pulmonary disease) ICD Codes: J44.9 - Chronic obstructive pulmonary disease, unspecified SNOMED: 06990753 Qualifiers: Qualified Codes: J44.9 - Chronic obstructive pulmonary disease, unspecified (4) Respiratory disorder with ventilator dependence ICD Codes: J98.9 - Respiratory disorder, unspecified; Z99.11 - Dependence on respirator [ventilator] status SNOMED: 99672843, [id number] Assessment/Plan s/p trach plan peg tomorrow Subjective ROS Limited/Unobtainable: No Allergies: Coded Allergies: No Known Allergies (Unverified , 10/20/16) Objective Last 24 Hour Vital Signs Date Time Temp Pulse Resp B/P (MAP) Pulse Ox O2 Delivery O2 Flow Rate FiO2 03/21/17 10:38 89 25 35 03/21/17 09:29 88 25 35 03/21/17 08:20 95 137/98 03/21/17 08:00 35 03/21/17 08:00 98.2 95 23 137/98 97 Mechanical Ventilator 03/21/17 08:00 88 03/21/17 07:49 93 34 96 Mechanical Ventilator 35 03/21/17 07:49 35 03/21/17 07:38 93 34 96 Mechanical Ventilator 35 03/21/17 07:38 93 34 35 03/21/17 05:15 93 17 35 03/21/17 04:00 89 03/21/17 04:00 35 03/21/17 04:00 98.4 94 24 101/57 93 Mechanical Ventilator 35 03/21/17 03:15 88 30 35 03/21/17 00:57 88 30 35 03/21/17 00:00 98.7 88 24 110/67 97 Mechanical Ventilator 35 03/21/17 00:00 87 03/20/17 23:19 88 24 35 03/20/17 21:44 92 122/75 03/20/17 20:30 92 26 35 03/20/17 20:00 92 03/20/17 20:00 99.0 92 20 120/61 94 Mechanical Ventilator 35 03/20/17 20:00 35 03/20/17 19:02 90 16 35 03/20/17 19:00 99.0 92 20 120/61 94 Mechanical Ventilator 35 03/20/17 18:00 95 21 122/75 95 Mechanical Ventilator 35 03/20/17 17:00 92 22 93/69 95 Mechanical Ventilator 35 03/20/17 16:57 89 39 35 03/20/17 16:00 98.1 90 20 98/59 96 Mechanical Ventilator 35 03/20/17 16:00 93 03/20/17 16:00 35 03/20/17 15:07 85 29 35 03/20/17 15:00 86 22 120/70 97 Mechanical Ventilator 35 03/20/17 14:00 87 21 118/77 95 Mechanical Ventilator 35 03/20/17 13:00 86 21 102/65 95 Mechanical Ventilator 35 03/20/17 12:39 88 23 35 03/20/17 12:00 88 03/20/17 12:00 98.2 88 19 102/56 99 Mechanical Ventilator 35 03/20/17 12:00 35 Intake and Output 03/20/17 03/21/17 19:00 07:00 Intake Total 1181.667 ml 871.3 ml Output Total 820 ml 660 ml Balance 361.667 ml 211.3 ml Free Water 300 ml 50 ml IV Total 221.667 ml 216.3 ml Tube Feeding 660 ml 605 ml Output Urine Total 820 ml 660 ml # Bowel Movements 4 4 Laboratory Tests 03/21/17 06:55: White Blood Count 12.1H, Red Blood Count 4.09L, Hemoglobin 11.6L, Hematocrit 37.7L, Mean Corpuscular Volume 92, Mean Corpuscular Hemoglobin 28.4, Mean Corpuscular Hemoglobin Concent 30.9L, Red Cell Distribution Width 13.6, Platelet Count 499H, Mean Platelet Volume 6.5, Neutrophils (%) (Auto) 65.6, Lymphocytes (%) (Auto) 20.5, Monocytes (%) (Auto) 8.2, Eosinophils (%) (Auto) 4.4H, Basophils (%) (Auto) 1.3, Sodium Level 140, Potassium Level 3.6, Chloride Level 109H, Carbon Dioxide Level 24, Anion Gap 7, Blood Urea Nitrogen 14, Creatinine 0.9, Estimat Glomerular Filtration Rate > 60, Glucose Level 126H, Calcium Level 7.7L Height (Feet): 5 Height (Inches): 8.00 Weight (Pounds): 152 General Appearance: no apparent distress EENT: normal ENT inspection Neck: supple Cardiovascular: normal rate Respiratory/Chest: decreased breath sounds Abdomen: normal bowel sounds, non tender, soft Extremities: non-tender TIMMY GARNER Mar 21, 2017 11:34
[2017-03-21 11:35] VITALS: BP 115/76
--- NOTE | 2017-03-21 12:42 | Pulmonology Progress Note ---
Assessment/Plan Assessment/Plan ASSESSMENT sepsis with shock (resolved shock) acute hypoxemic RF requiring intubation 03/04 failure to wean s/p trac placement 03/19 bacteremia with Aerococcus PNA with E coli ESBL possible UTI acute renal failure possible ATN dehydration Hypernatremia ( due to free water deficit) e/lyte imbalance : hypo K, hypo P-resolved COPD Alzheimer dementia severe protein calorie malnutrition moderate pulmonary HTN elevated AST Hx of HTN thrombocytopenia dysphagia OA PLAN OF CARE TOÑITO vent support, trach care ,pulmonary toilet surgery follows trach functional no bleeding, no other issues ABG 03/20 stable on current settings fup with CXR in am CT C/A/P with evidence of R sided consolidation abx, ID follows , abx managements per ID sputum cx + E coli ESBL, urine cx negative, initially 03/18 blood cx + Aerococcus , repeated blood cx negative UTD, ID wants to r/o endocarditis ECHO with grossly preserved EF and normal wall motion to the extent visualized, + evidence of moderate pulmonary HTN s/p PICC 03/09 renal parameters improved, creat down to normal, Na down to normal, s/p IVF nephro follows monitor lytes, correct as needed monitor cardiorenal parameters, volumes, avoid nephrotoxic cardio follows troponin noted fup with cardio recommendation: ASA, BB, no need for diuresis for now ECHO DVT GI prophylaxis monitor counts,heme follows monitor LFT, strict aspiration precautions, NGT feeding with dietary recom re TF type and goal rate GI follows PEG placement for am wound care pain management bowel regimen Case discussed and evaluated by supervising physician Subjective Allergies: Coded Allergies: No Known Allergies (Unverified , 10/20/16) Subjective s/p trach 03/19 no bleeding no signs of resp distress trach functional Objective Last 24 Hour Vital Signs Date Time Temp Pulse Resp B/P (MAP) Pulse Ox O2 Delivery O2 Flow Rate FiO2 03/21/17 12:00 35 03/21/17 11:35 97.8 93 19 115/76 95 Mechanical Ventilator 35 03/21/17 10:38 89 25 35 03/21/17 09:29 88 25 35 03/21/17 08:20 95 137/98 03/21/17 08:00 35 03/21/17 08:00 98.2 95 23 137/98 97 Mechanical Ventilator 03/21/17 08:00 88 03/21/17 07:49 93 34 96 Mechanical Ventilator 35 03/21/17 07:49 35 03/21/17 07:38 93 34 96 Mechanical Ventilator 35 03/21/17 07:38 93 34 35 03/21/17 05:15 93 17 35 03/21/17 04:00 89 03/21/17 04:00 35 03/21/17 04:00 98.4 94 24 101/57 93 Mechanical Ventilator 35 03/21/17 03:15 88 30 35 03/21/17 00:57 88 30 35 03/21/17 00:00 98.7 88 24 110/67 97 Mechanical Ventilator 35 03/21/17 00:00 87 03/20/17 23:19 88 24 35 03/20/17 21:44 92 122/75 03/20/17 20:30 92 26 35 03/20/17 20:00 92 03/20/17 20:00 99.0 92 20 120/61 94 Mechanical Ventilator 35 03/20/17 20:00 35 03/20/17 19:02 90 16 35 03/20/17 19:00 99.0 92 20 120/61 94 Mechanical Ventilator 35 03/20/17 18:00 95 21 122/75 95 Mechanical Ventilator 35 03/20/17 17:00 92 22 93/69 95 Mechanical Ventilator 35 03/20/17 16:57 89 39 35 03/20/17 16:00 98.1 90 20 98/59 96 Mechanical Ventilator 35 03/20/17 16:00 93 03/20/17 16:00 35 03/20/17 15:07 85 29 35 03/20/17 15:00 86 22 120/70 97 Mechanical Ventilator 35 03/20/17 14:00 87 21 118/77 95 Mechanical Ventilator 35 03/20/17 13:00 86 21 102/65 95 Mechanical Ventilator 35 Intake and Output 03/20/17 03/21/17 19:00 07:00 Intake Total 1181.667 ml 871.3 ml Output Total 820 ml 660 ml Balance 361.667 ml 211.3 ml Free Water 300 ml 50 ml IV Total 221.667 ml 216.3 ml Tube Feeding 660 ml 605 ml Output Urine Total 820 ml 660 ml # Bowel Movements 4 4 Objective General Appearance: other - AA male on vent AC 450-16-40% HEENT: normocephalic, atraumatic, status post trach, NGT with TF Respiratory/Chest: lungs clear, no respiratory distress Cardiovascular: normal rate, regular rhythm - SR on tele , PICC LUE intact Abdomen: normal bowel sounds, soft, non tender Neurologic/Psychiatric: abnormal gait, arousable, open eyes Musculoskeletal: atrophy - BLE Laboratory Tests 03/21/17 06:55: White Blood Count 12.1H, Red Blood Count 4.09L, Hemoglobin 11.6L, Hematocrit 37.7L, Mean Corpuscular Volume 92, Mean Corpuscular Hemoglobin 28.4, Mean Corpuscular Hemoglobin Concent 30.9L, Red Cell Distribution Width 13.6, Platelet Count 499H, Mean Platelet Volume 6.5, Neutrophils (%) (Auto) 65.6, Lymphocytes (%) (Auto) 20.5, Monocytes (%) (Auto) 8.2, Eosinophils (%) (Auto) 4.4H, Basophils (%) (Auto) 1.3, Sodium Level 140, Potassium Level 3.6, Chloride Level 109H, Carbon Dioxide Level 24, Anion Gap 7, Blood Urea Nitrogen 14, Creatinine 0.9, Estimat Glomerular Filtration Rate > 60, Glucose Level 126H, Calcium Level 7.7L Current Medications Medications (Trade) Dose Ordered Sig/Ant Route PRN Reason Start Time Stop Time Status Last Admin Dose Admin Acetaminophen (Tylenol) 650 mg Q4H PRN ORAL Mild Pain/Temp > 100.5 03/20/17 20:45 04/03/17 08:44 Albuterol/ Ipratropium (Albuterol/ Ipratropium) 3 ml Q4H PRN HHN Shortness of Breath 03/20/17 21:00 03/25/17 16:59 Albuterol/ Ipratropium (Albuterol/ Ipratropium) 3 ml Q6HRT HHN 03/20/17 19:00 03/24/17 19:00 03/21/17 07:38 Artificial Tears (Akwa-Tears) 2 drop Q2H PRN BOTH EYES Dry Eyes 03/20/17 19:15 04/08/17 09:14 Aspirin (ASA) 81 mg DAILY ORAL 03/21/17 09:00 04/19/17 08:59 03/21/17 08:20 Atorvastatin Calcium (Lipitor) 40 mg BEDTIME ORAL 03/20/17 21:00 04/18/17 20:59 03/20/17 21:44 Carvedilol (Coreg) 3.125 mg EVERY 12 HOURS PEG 03/20/17 21:00 04/12/17 08:59 03/21/17 08:20 Chlorhexidine Gluconate (Lisa-Hex 2%) 1 applic DAILY@2000 TOPIC 03/20/17 20:00 04/08/17 19:59 03/20/17 21:43 Docusate Sodium (Colace) 100 mg BID GT 03/21/17 09:00 04/10/17 21:29 03/21/17 08:20 Lorazepam (Ativan 2mg/ml 1ml) 2 mg Q4H PRN IV For Anxiety 03/20/17 20:00 03/24/17 11:59 Meropenem 1 gm/ Sodium Chloride 55 ml @ 110 mls/hr Q8HR@0600,1400,2200 IVPB 03/20/17 22:00 03/21/17 23:59 03/21/17 06:07 Morphine Sulfate (Morphine Sulfate) 2 mg Q4H PRN IVP Severe Pain (Pain Scale 7-10) 03/20/17 20:00 03/24/17 11:59 Pantoprazole (Protonix) 40 mg Q12HR IVP 03/20/17 21:00 04/03/17 20:59 03/21/17 08:20 Polyethylene Glycol (Miralax) 17 gm BEDTIME ORAL 03/20/17 21:00 04/10/17 21:29 Kacy Gilliam NP ([facility]) Mar 21, 2017 12:42
--- NOTE | 2017-03-21 13:46 | Nephrology Progress Note ---
Assessment/Plan Problem List: (1) Respiratory disorder with ventilator dependence (2) UTI (urinary tract infection) (3) Hypernatremia (4) Acute renal failure Assessment - Na 148 - Acute renal failure cr 1.1 to 2.4 to 2.1 to 1.9 to 1.5 now WNL - Chronic paranoid schizophrenia - Respiratory disorder with ventilator dependence - Healthcare associated bacterial pneumonia - UTI (urinary tract infection) - SIRS (systemic inflammatory response syndrome) - Alzheimer disease - Hypokalemia - Hypernatremia / due to water deficit improving with D5 resolving Plan plan: now trached stable from renal stand K supplement as needed Water NGT Pulm support Antibiotics monitor renal parameters per orders Subjective ROS Limited/Unobtainable: Yes Objective Objective Last 24 Hour Vital Signs Date Time Temp Pulse Resp B/P (MAP) Pulse Ox O2 Delivery O2 Flow Rate FiO2 03/21/17 12:00 35 03/21/17 11:35 97.8 93 19 115/76 95 Mechanical Ventilator 35 03/21/17 10:38 89 25 35 03/21/17 09:29 88 25 35 03/21/17 08:20 95 137/98 03/21/17 08:00 35 03/21/17 08:00 98.2 95 23 137/98 97 Mechanical Ventilator 03/21/17 08:00 88 03/21/17 07:49 93 34 96 Mechanical Ventilator 35 03/21/17 07:49 35 03/21/17 07:38 93 34 96 Mechanical Ventilator 35 03/21/17 07:38 93 34 35 03/21/17 05:15 93 17 35 03/21/17 04:00 89 03/21/17 04:00 35 03/21/17 04:00 98.4 94 24 101/57 93 Mechanical Ventilator 35 03/21/17 03:15 88 30 35 03/21/17 00:57 88 30 35 03/21/17 00:00 98.7 88 24 110/67 97 Mechanical Ventilator 35 03/21/17 00:00 87 03/20/17 23:19 88 24 35 03/20/17 21:44 92 122/75 03/20/17 20:30 92 26 35 03/20/17 20:00 92 03/20/17 20:00 99.0 92 20 120/61 94 Mechanical Ventilator 35 03/20/17 20:00 35 03/20/17 19:02 90 16 35 03/20/17 19:00 99.0 92 20 120/61 94 Mechanical Ventilator 35 03/20/17 18:00 95 21 122/75 95 Mechanical Ventilator 35 03/20/17 17:00 92 22 93/69 95 Mechanical Ventilator 35 03/20/17 16:57 89 39 35 03/20/17 16:00 98.1 90 20 98/59 96 Mechanical Ventilator 35 03/20/17 16:00 93 03/20/17 16:00 35 03/20/17 15:07 85 29 35 03/20/17 15:00 86 22 120/70 97 Mechanical Ventilator 35 03/20/17 14:00 87 21 118/77 95 Mechanical Ventilator 35 Intake and Output 03/20/17 03/21/17 19:00 07:00 Intake Total 1181.667 ml 871.3 ml Output Total 820 ml 660 ml Balance 361.667 ml 211.3 ml Free Water 300 ml 50 ml IV Total 221.667 ml 216.3 ml Tube Feeding 660 ml 605 ml Output Urine Total 820 ml 660 ml # Bowel Movements 4 4 Laboratory Tests 03/21/17 06:55: White Blood Count 12.1H, Red Blood Count 4.09L, Hemoglobin 11.6L, Hematocrit 37.7L, Mean Corpuscular Volume 92, Mean Corpuscular Hemoglobin 28.4, Mean Corpuscular Hemoglobin Concent 30.9L, Red Cell Distribution Width 13.6, Platelet Count 499H, Mean Platelet Volume 6.5, Neutrophils (%) (Auto) 65.6, Lymphocytes (%) (Auto) 20.5, Monocytes (%) (Auto) 8.2, Eosinophils (%) (Auto) 4.4H, Basophils (%) (Auto) 1.3, Sodium Level 140, Potassium Level 3.6, Chloride Level 109H, Carbon Dioxide Level 24, Anion Gap 7, Blood Urea Nitrogen 14, Creatinine 0.9, Estimat Glomerular Filtration Rate > 60, Glucose Level 126H, Calcium Level 7.7L Height (Feet): 5 Height (Inches): 8.00 Weight (Pounds): 152 EENT: other - trach site clean Cardiovascular: tachycardia Respiratory/Chest: decreased breath sounds Abdomen: soft Objective no change CHACHA NUNES Mar 21, 2017 13:46
[2017-03-21 16:00] VITALS: BP 92/74
[2017-03-21 19:43] VITALS: BP 150/68
[2017-03-21] MEDS: Dyna-Hex 2% Top Sol 2oz TOPIC SCH (20:27)
[2017-03-21] MEDS: Atorvastatin 20mg tab ORAL SCH (20:28)
[2017-03-21] MEDS: Miralax 17gm pkt ORAL SCH (21:00)
--- NOTE | 2017-03-21 22:45 | General Progress Note ---
Assessment/Plan Status: unchanged Assessment/Plan Assessment/Plan #. Leukocytosis 2/2 Sepsis. ID following, on abx --> improving, continue to follow #. Thrombocytosis likely reactive process, stable #. Anemia of chronic disease. --> Hgb goal above 7. Transfuse as needed, work up has been reviewed --> Has been stable. #. Respiratory failure to proceed with trach #. COPD #. Hypokalemia. #. Hypernatremia. Subjective Date patient seen: Mar 21, 2017 Allergies: Coded Allergies: No Known Allergies (Unverified , 10/20/16) Subjective Tachycardic. H/H stable. On trach/vent. No major events. Objective Last 24 Hour Vital Signs Date Time Temp Pulse Resp B/P (MAP) Pulse Ox O2 Delivery O2 Flow Rate FiO2 03/21/17 20:39 86 28 35 03/21/17 20:28 94 150/68 03/21/17 20:00 93 03/21/17 20:00 35 03/21/17 19:43 99.0 94 22 150/68 97 Mechanical Ventilator 35 03/21/17 19:29 89 32 99 Mechanical Ventilator 35 03/21/17 19:22 35 03/21/17 19:22 98 22 98 Mechanical Ventilator 35 03/21/17 19:04 78 17 35 03/21/17 17:22 88 30 35 03/21/17 16:00 92 03/21/17 16:00 98.6 92 22 92/74 97 Mechanical Ventilator 35 03/21/17 16:00 35 03/21/17 14:30 94 33 35 03/21/17 14:29 94 34 99 Mechanical Ventilator 35 03/21/17 14:29 35 03/21/17 14:22 93 24 99 Mechanical Ventilator 35 03/21/17 12:33 92 24 35 03/21/17 12:00 91 03/21/17 12:00 35 03/21/17 11:35 97.8 93 19 115/76 95 Mechanical Ventilator 35 03/21/17 10:38 89 25 35 03/21/17 09:29 88 25 35 03/21/17 08:20 95 137/98 03/21/17 08:00 35 03/21/17 08:00 98.2 95 23 137/98 97 Mechanical Ventilator 03/21/17 08:00 88 03/21/17 07:49 93 34 96 Mechanical Ventilator 35 03/21/17 07:49 35 03/21/17 07:38 93 34 96 Mechanical Ventilator 35 03/21/17 07:38 93 34 35 03/21/17 05:15 93 17 35 03/21/17 04:00 89 03/21/17 04:00 35 03/21/17 04:00 98.4 94 24 101/57 93 Mechanical Ventilator 35 03/21/17 03:15 88 30 35 03/21/17 00:57 88 30 35 03/21/17 00:00 98.7 88 24 110/67 97 Mechanical Ventilator 35 03/21/17 00:00 87 03/20/17 23:19 88 24 35 Intake and Output 03/20/17 03/21/17 19:00 07:00 Intake Total 1181.667 ml 871.3 ml Output Total 820 ml 660 ml Balance 361.667 ml 211.3 ml Free Water 300 ml 50 ml IV Total 221.667 ml 216.3 ml Tube Feeding 660 ml 605 ml Output Urine Total 820 ml 660 ml # Bowel Movements 4 4 Laboratory Tests 03/21/17 06:55: White Blood Count 12.1H, Red Blood Count 4.09L, Hemoglobin 11.6L, Hematocrit 37.7L, Mean Corpuscular Volume 92, Mean Corpuscular Hemoglobin 28.4, Mean Corpuscular Hemoglobin Concent 30.9L, Red Cell Distribution Width 13.6, Platelet Count 499H, Mean Platelet Volume 6.5, Neutrophils (%) (Auto) 65.6, Lymphocytes (%) (Auto) 20.5, Monocytes (%) (Auto) 8.2, Eosinophils (%) (Auto) 4.4H, Basophils (%) (Auto) 1.3, Sodium Level 140, Potassium Level 3.6, Chloride Level 109H, Carbon Dioxide Level 24, Anion Gap 7, Blood Urea Nitrogen 14, Creatinine 0.9, Estimat Glomerular Filtration Rate > 60, Glucose Level 126H, Calcium Level 7.7L Height (Feet): 5 Height (Inches): 8.00 Weight (Pounds): 152 General Appearance: no apparent distress Cardiovascular: tachycardia Respiratory/Chest: decreased breath sounds Abdomen: soft Justin Anthony Mar 21, 2017 22:45
[2017-03-22] VITALS: BP 128/61
[2017-03-22 04:00] VITALS: BP 121/76
[2017-03-22] MEDS: Albuterol/Ipratropium 3ml neb HHN SCH ×4 (05:01→19:03)
[2017-03-22 06:27] LABS: ANION GAP 6 mmol/L (5-15); BLOOD UREA NITROGEN 17 mg/dL (7-18); CALCIUM 7.7 MG/DL (8.5-10.1); CARBON DIOXIDE 27 MMOL/L (21-32); CHLORIDE 109 MMOL/L (98-107); POTASSIUM 3.8 MMOL/L (3.5-5.1); SODIUM 142 MMOL/L (136-145)
[2017-03-22 06:38] LABS: EOSINOPHILS % (AUTO) 6.4 % (0.0-3.0); HEMATOCRIT 35.6 % (42.0-52.0); HEMOGLOBIN 11.2 G/DL (14.2-18.0); LYMPHOCYTES % (AUTO) 28.7 % (20.0-45.0); MEAN CORPUSCULAR VOLUME 92 FL (80-99); MONOCYTES % (AUTO) 8.5 % (1.0-10.0); NEUTROPHILS % (AUTO) 55.3 % (45.0-75.0); PLATELET COUNT 476 K/UL (150-450); RED BLOOD COUNT 3.87 M/UL (4.70-6.10); RED CELL DISTRIBUTION WIDTH 13.4 % (11.6-14.8); WHITE BLOOD COUNT 9.7 K/UL (4.8-10.8)
[2017-03-22 08:00] VITALS: BP 100/52
[2017-03-22] MEDS: Aspirin Baby 81mg ORAL SCH (08:59)
[2017-03-22] MEDS: Pantoprazole Inj IVP SCH ×2 (08:59→21:18)
[2017-03-22] MEDS: Docusate 100mg/10ml Liq GT SCH ×2 (08:59→18:17)
--- NOTE | 2017-03-22 09:05 | General Progress Note ---
Assessment/Plan Problem List: (1) half-way resident ICD Codes: Z59.3 - Problems related to living in residential institution SNOMED: 609047803 (2) Esophagitis ICD Codes: K20.9 - Esophagitis, unspecified SNOMED: 00536337 (3) COPD (chronic obstructive pulmonary disease) ICD Codes: J44.9 - Chronic obstructive pulmonary disease, unspecified SNOMED: 23306222 Qualifiers: Qualified Codes: J44.9 - Chronic obstructive pulmonary disease, unspecified (4) Respiratory disorder with ventilator dependence ICD Codes: J98.9 - Respiratory disorder, unspecified; Z99.11 - Dependence on respirator [ventilator] status SNOMED: 53130949, [id number] Assessment/Plan s/p trach with physicians consent needs PEG also. no family available to get consent for PEG will do the same as trach and accept physician consent d/w the primary care team Subjective ROS Limited/Unobtainable: No Allergies: Coded Allergies: No Known Allergies (Unverified , 10/20/16) Objective Last 24 Hour Vital Signs Date Time Temp Pulse Resp B/P (MAP) Pulse Ox O2 Delivery O2 Flow Rate FiO2 03/22/17 08:59 78 142/74 03/22/17 08:50 68 24 35 03/22/17 06:50 86 20 99 Mechanical Ventilator 35 03/22/17 06:50 35 03/22/17 06:50 84 20 35 03/22/17 06:50 84 20 99 Mechanical Ventilator 35 03/22/17 05:01 87 23 35 03/22/17 04:00 88 03/22/17 04:00 35 03/22/17 04:00 97.8 85 22 121/76 97 Mechanical Ventilator 35 03/22/17 03:21 74 30 35 03/22/17 01:29 73 21 99 Mechanical Ventilator 35 03/22/17 01:20 35 03/22/17 01:20 91 20 99 Mechanical Ventilator 35 03/22/17 01:17 91 27 35 03/22/17 00:03 99.0 03/22/17 00:00 97.7 80 22 128/61 97 Mechanical Ventilator 35 03/21/17 23:03 88 32 35 03/21/17 20:39 86 28 35 03/21/17 20:28 94 150/68 03/21/17 20:00 93 03/21/17 20:00 35 03/21/17 19:43 99.0 94 22 150/68 97 Mechanical Ventilator 35 03/21/17 19:29 89 32 99 Mechanical Ventilator 35 03/21/17 19:22 35 03/21/17 19:22 98 22 98 Mechanical Ventilator 35 03/21/17 19:04 78 17 35 03/21/17 17:22 88 30 35 03/21/17 16:00 92 03/21/17 16:00 98.6 92 22 92/74 97 Mechanical Ventilator 35 03/21/17 16:00 35 03/21/17 14:30 94 33 35 03/21/17 14:29 94 34 99 Mechanical Ventilator 35 03/21/17 14:29 35 03/21/17 14:22 93 24 99 Mechanical Ventilator 35 03/21/17 12:33 92 24 35 03/21/17 12:00 91 03/21/17 12:00 35 03/21/17 11:35 97.8 93 19 115/76 95 Mechanical Ventilator 35 03/21/17 10:38 89 25 35 03/21/17 09:29 88 25 35 Intake and Output 03/21/17 03/22/17 19:00 07:00 Intake Total 1070 ml 375 ml Output Total 890 ml 350 ml Balance 180 ml 25 ml Free Water 300 ml 100 ml IV Total 55 ml Tube Feeding 715 ml 275 ml Output Urine Total 890 ml 350 ml # Bowel Movements 3 2 Laboratory Tests 03/22/17 04:25: White Blood Count 9.7, Red Blood Count 3.87L, Hemoglobin 11.2L, Hematocrit 35.6L , Mean Corpuscular Volume 92, Mean Corpuscular Hemoglobin 29.0, Mean Corpuscular Hemoglobin Concent 31.5L, Red Cell Distribution Width 13.4, Platelet Count 476H, Mean Platelet Volume 6.3L, Neutrophils (%) (Auto) 55.3, Lymphocytes (%) (Auto) 28.7, Monocytes (%) (Auto) 8.5, Eosinophils (%) (Auto) 6.4H, Basophils (%) (Auto) 1.0, Sodium Level 142, Potassium Level 3.8, Chloride Level 109H, Carbon Dioxide Level 27, Anion Gap 6, Blood Urea Nitrogen 17, Creatinine 1.0, Estimat Glomerular Filtration Rate > 60, Glucose Level 100, Calcium Level 7.7L Height (Feet): 5 Height (Inches): 8.00 Weight (Pounds): 151 General Appearance: lethargic EENT: normal ENT inspection Neck: supple Cardiovascular: normal rate Respiratory/Chest: decreased breath sounds Abdomen: normal bowel sounds, non tender, soft Extremities: non-tender TIMMY GARNER Mar 22, 2017 09:05
--- NOTE | 2017-03-22 10:18 | Infectious Diseases Prog Note ---
Assessment/Plan Assessment/Plan ASSESSMENT: The patient is a 71-year-old male with: Aerococcus urinae bacteremia- ?source UTI however Ucx neg; r/o endocarditis as has been associated with endocarditis in the elderly. -03/03 Bcx 03/18 +; 03/06 Neg x4 -Elevated CRp 21.0 03/06; CRP 1.2 03/19 (improving) -03/03 TTE: no vegetations, no significant valve abnormalities 03/16 CONS bacteremia-likely contaminant 03/12 03/16, 03/15 Bccx NTD x4 Sepsis, SP fever/SP -CT chest/abd/p w/: Somewhat limited exam due to motion artifact. Right upper lobe, right lower lobe, and left lower lobe atelectasis and consolidation. Likely pneumonia, otherwise nonspecific. Elevated right hemidiaphragm. Small left pleural effusion. Satisfactory positions of endotracheal and nasogastric tubes. No acute abdominal process. Degenerative lumbar spondylosis. Colonic interposition incidentally noted. Colonic diverticulosis. Beltran catheter. Prominent prostate. Degenerative changes of the right hip with heterotopic ossification Leukocytosis ,mild ( post op ) Sp change of trach 03/19 HCAP Scx : ESBL EColi ; repeat SCx : 03/17 Annemarie : colonizer , s/p Rx- r/o fungal PNA -sp cx 03/11 +1 C. albicans(colonizer); -CXR 03/19: Diffuse right lung, left lower lobe infiltrates persist, unchanged. -CXR 03/17: Right upper lobe reticular consolidation persists, probably not significantly changed. There appears to be slightly improved retrocardiac aeration, but consolidation and atelectasis persists. There is decreased reticular consolidation in the left lung apex. There may be atelectasis of a of the left lower lobe; if so this is unchanged. -CXR 03/11: persistent extensive right upper lobe infiltrate. Infiltrate and pleural fluid in the left mid and lower lung persist, are probably unchanged allowing for slightly greater lung volumes on the current exam. -CXR 03/09: New right pulmonary infiltrate. Possible urinary tract infection 03/04 ucx neg; repeat u/a 03/11 u/a no pyuria Elevated inflammatory markers -ESR 94, CRP 14.2 03/11> 8 03/14; improving Influenza negative AST Elevation s/p PICC line 03/09 Positive cardiac enzymes. Acute renal failure, improving Dysphagia. Osteoarthritis. Hypertension. COPD. History of GERD History of H. pylori in the past Dementia with psychosis PLAN: -Continue to monitor off abx 03/21 SP Meropenem #14 03/20 SP IV Vanco #10 03/15 SP Dapto x1 03/08 SP vancomycin d# 5 03/07 SP Zosyn d# 4 -may need to remove PICC line if recurrent ConS bacteremia or recurrent fevers Monitor CBC/CMP. Monitor cultures (blood ) Monitor chest x-ray. Monitor renal function. Subjective Allergies: Coded Allergies: No Known Allergies (Unverified , 10/20/16) Subjective afebrile on the floors now on 35% MV Objective Vital Signs Last 24 Hour Vital Signs Date Time Temp Pulse Resp B/P (MAP) Pulse Ox O2 Delivery O2 Flow Rate FiO2 03/22/17 08:59 78 142/74 03/22/17 08:50 68 24 35 03/22/17 08:00 35 03/22/17 08:00 79 03/22/17 08:00 97.7 79 18 100/52 98 Mechanical Ventilator 35 03/22/17 06:50 86 20 99 Mechanical Ventilator 35 03/22/17 06:50 35 03/22/17 06:50 84 20 35 03/22/17 06:50 84 20 99 Mechanical Ventilator 35 03/22/17 05:01 87 23 35 03/22/17 04:00 88 03/22/17 04:00 35 03/22/17 04:00 97.8 85 22 121/76 97 Mechanical Ventilator 35 03/22/17 03:21 74 30 35 03/22/17 01:29 73 21 99 Mechanical Ventilator 35 03/22/17 01:20 35 03/22/17 01:20 91 20 99 Mechanical Ventilator 35 03/22/17 01:17 91 27 35 03/22/17 00:03 99.0 03/22/17 00:00 97.7 80 22 128/61 97 Mechanical Ventilator 35 03/21/17 23:03 88 32 35 03/21/17 20:39 86 28 35 03/21/17 20:28 94 150/68 03/21/17 20:00 93 03/21/17 20:00 35 03/21/17 19:43 99.0 94 22 150/68 97 Mechanical Ventilator 35 03/21/17 19:29 89 32 99 Mechanical Ventilator 35 03/21/17 19:22 35 03/21/17 19:22 98 22 98 Mechanical Ventilator 35 03/21/17 19:04 78 17 35 03/21/17 17:22 88 30 35 03/21/17 16:00 92 03/21/17 16:00 98.6 92 22 92/74 97 Mechanical Ventilator 35 03/21/17 16:00 35 03/21/17 14:30 94 33 35 03/21/17 14:29 94 34 99 Mechanical Ventilator 35 03/21/17 14:29 35 03/21/17 14:22 93 24 99 Mechanical Ventilator 35 03/21/17 12:33 92 24 35 03/21/17 12:00 91 03/21/17 12:00 35 03/21/17 11:35 97.8 93 19 115/76 95 Mechanical Ventilator 35 03/21/17 10:38 89 25 35 Height (Feet): 5 Height (Inches): 8.00 Weight (Pounds): 151 Objective General Appearance: other - Intubated, limited eval as patient is not following commands EENT: PERRL/EOMI Neck: supple Cardiovascular: tachycardia Respiratory/Chest: rhonchi - bilaterally Abdomen: soft Extremities: other - cachectic appearance Neurologic: other - limited eval as patient is not following commands Laboratory Tests Test 03/22/17 04:25 White Blood Count 9.7 K/UL (4.8-10.8) Red Blood Count 3.87 M/UL (4.70-6.10) L Hemoglobin 11.2 G/DL (14.2-18.0) L Hematocrit 35.6 % (42.0-52.0) L Mean Corpuscular Volume 92 FL (80-99) Mean Corpuscular Hemoglobin 29.0 PG (27.0-31.0) Mean Corpuscular Hemoglobin Concent 31.5 G/DL (32.0-36.0) L Red Cell Distribution Width 13.4 % (11.6-14.8) Platelet Count 476 K/UL (150-450) H Mean Platelet Volume 6.3 FL (6.5-10.1) L Neutrophils (%) (Auto) 55.3 % (45.0-75.0) Lymphocytes (%) (Auto) 28.7 % (20.0-45.0) Monocytes (%) (Auto) 8.5 % (1.0-10.0) Eosinophils (%) (Auto) 6.4 % (0.0-3.0) H Basophils (%) (Auto) 1.0 % (0.0-2.0) Sodium Level 142 MMOL/L (136-145) Potassium Level 3.8 MMOL/L (3.5-5.1) Chloride Level 109 MMOL/L (98-107) H Carbon Dioxide Level 27 MMOL/L (21-32) Anion Gap 6 mmol/L (5-15) Blood Urea Nitrogen 17 mg/dL (7-18) Creatinine 1.0 MG/DL (0.55-1.30) Estimat Glomerular Filtration Rate > 60 mL/min (>60) Glucose Level 100 MG/DL (74-106) Calcium Level 7.7 MG/DL (8.5-10.1) L Current Medications Medications (Trade) Dose Ordered Sig/Ant Route PRN Reason Start Time Stop Time Status Last Admin Dose Admin Acetaminophen (Tylenol) 650 mg Q4H PRN ORAL Mild Pain/Temp > 100.5 03/20/17 20:45 04/03/17 08:44 03/21/17 23:04 Albuterol/ Ipratropium (Albuterol/ Ipratropium) 3 ml Q4H PRN HHN Shortness of Breath 03/20/17 21:00 03/25/17 16:59 Albuterol/ Ipratropium (Albuterol/ Ipratropium) 3 ml Q6HRT HHN 03/20/17 19:00 03/24/17 19:00 03/22/17 06:57 Artificial Tears (Akwa-Tears) 2 drop Q2H PRN BOTH EYES Dry Eyes 03/20/17 19:15 04/08/17 09:14 Aspirin (ASA) 81 mg DAILY ORAL 03/21/17 09:00 04/19/17 08:59 03/21/17 08:20 Atorvastatin Calcium (Lipitor) 40 mg BEDTIME ORAL 03/20/17 21:00 04/18/17 20:59 03/21/17 20:28 Carvedilol (Coreg) 3.125 mg EVERY 12 HOURS PEG 03/20/17 21:00 04/12/17 08:59 1/8/18 08:59 Chlorhexidine Gluconate (Lisa-Hex 2%) 1 applic DAILY@2000 TOPIC 03/20/17 20:00 04/08/17 19:59 03/21/17 20:27 Docusate Sodium (Colace) 100 mg BID GT 03/21/17 09:00 04/10/17 21:29 03/21/17 18:20 Lorazepam (Ativan 2mg/ml 1ml) 2 mg Q4H PRN IV For Anxiety 03/20/17 20:00 03/24/17 11:59 Morphine Sulfate (Morphine Sulfate) 2 mg Q4H PRN IVP Severe Pain (Pain Scale 7-10) 03/20/17 20:00 03/24/17 11:59 Pantoprazole (Protonix) 40 mg Q12HR IVP 03/20/17 21:00 04/03/17 20:59 03/22/17 08:59 Polyethylene Glycol (Miralax) 17 gm BEDTIME ORAL 03/20/17 21:00 04/10/17 21:29 Alise Polanco M.D. Mar 22, 2017 10:18
--- NOTE | 2017-03-22 11:20 | Nephrology Progress Note ---
Assessment/Plan Problem List: (1) Respiratory disorder with ventilator dependence (2) UTI (urinary tract infection) (3) Hypernatremia (4) Acute renal failure Assessment - Na wnl - Acute renal failure cr 1.1 to 2.4 to 2.1 to 1.9 to 1.5 now WNL - Chronic paranoid schizophrenia - Respiratory disorder with ventilator dependence - Healthcare associated bacterial pneumonia - UTI (urinary tract infection) - SIRS (systemic inflammatory response syndrome) - Alzheimer disease - Hypokalemia - Hypernatremia / due to water deficit improving with D5 resolving Plan plan: now trached stable from renal stand K supplement as needed Water NGT Pulm support Antibiotics monitor renal parameters per orders Subjective ROS Limited/Unobtainable: Yes Objective Objective Last 24 Hour Vital Signs Date Time Temp Pulse Resp B/P (MAP) Pulse Ox O2 Delivery O2 Flow Rate FiO2 03/22/17 11:05 82 25 35 03/22/17 08:59 78 142/74 03/22/17 08:50 68 24 35 03/22/17 08:00 35 03/22/17 08:00 79 03/22/17 08:00 97.7 79 18 100/52 98 Mechanical Ventilator 35 03/22/17 06:50 86 20 99 Mechanical Ventilator 35 03/22/17 06:50 35 03/22/17 06:50 84 20 35 03/22/17 06:50 84 20 99 Mechanical Ventilator 35 03/22/17 05:01 87 23 35 03/22/17 04:00 88 03/22/17 04:00 35 03/22/17 04:00 97.8 85 22 121/76 97 Mechanical Ventilator 35 03/22/17 03:21 74 30 35 03/22/17 01:29 73 21 99 Mechanical Ventilator 35 03/22/17 01:20 35 03/22/17 01:20 91 20 99 Mechanical Ventilator 35 03/22/17 01:17 91 27 35 03/22/17 00:03 99.0 03/22/17 00:00 97.7 80 22 128/61 97 Mechanical Ventilator 35 03/21/17 23:03 88 32 35 03/21/17 20:39 86 28 35 03/21/17 20:28 94 150/68 03/21/17 20:00 93 03/21/17 20:00 35 03/21/17 19:43 99.0 94 22 150/68 97 Mechanical Ventilator 35 03/21/17 19:29 89 32 99 Mechanical Ventilator 35 03/21/17 19:22 35 03/21/17 19:22 98 22 98 Mechanical Ventilator 35 03/21/17 19:04 78 17 35 03/21/17 17:22 88 30 35 03/21/17 16:00 92 03/21/17 16:00 98.6 92 22 92/74 97 Mechanical Ventilator 35 03/21/17 16:00 35 03/21/17 14:30 94 33 35 03/21/17 14:29 94 34 99 Mechanical Ventilator 35 03/21/17 14:29 35 03/21/17 14:22 93 24 99 Mechanical Ventilator 35 03/21/17 12:33 92 24 35 03/21/17 12:00 91 03/21/17 12:00 35 03/21/17 11:35 97.8 93 19 115/76 95 Mechanical Ventilator 35 Intake and Output 03/21/17 03/22/17 19:00 07:00 Intake Total 1070 ml 375 ml Output Total 890 ml 350 ml Balance 180 ml 25 ml Free Water 300 ml 100 ml IV Total 55 ml Tube Feeding 715 ml 275 ml Output Urine Total 890 ml 350 ml # Bowel Movements 3 2 Laboratory Tests 03/22/17 04:25: White Blood Count 9.7, Red Blood Count 3.87L, Hemoglobin 11.2L, Hematocrit 35.6L , Mean Corpuscular Volume 92, Mean Corpuscular Hemoglobin 29.0, Mean Corpuscular Hemoglobin Concent 31.5L, Red Cell Distribution Width 13.4, Platelet Count 476H, Mean Platelet Volume 6.3L, Neutrophils (%) (Auto) 55.3, Lymphocytes (%) (Auto) 28.7, Monocytes (%) (Auto) 8.5, Eosinophils (%) (Auto) 6.4H, Basophils (%) (Auto) 1.0, Sodium Level 142, Potassium Level 3.8, Chloride Level 109H, Carbon Dioxide Level 27, Anion Gap 6, Blood Urea Nitrogen 17, Creatinine 1.0, Estimat Glomerular Filtration Rate > 60, Glucose Level 100, Calcium Level 7.7L Height (Feet): 5 Height (Inches): 8.00 Weight (Pounds): 151 General Appearance: no apparent distress Cardiovascular: normal rate Respiratory/Chest: decreased breath sounds Abdomen: soft Objective no change CHACHA NUNES Mar 22, 2017 11:20
--- NOTE | 2017-03-22 11:44 | Pre-Procedure Note/Attestation ---
Pre-Procedure Note/Attestation Complete Prior to Procedure Planned Procedure: not applicable Procedure Narrative: egd/peg Indications for Procedure Pre-Operative Diagnosis: dysphagia Attestation I attest that I discussed the nature of the procedure; its benefits; risks and complications; and alternatives (and the risks and benefits of such alternatives ), prior to the procedure, with the patient (or the patient's legal contact center representative). I attest that, if there was a reasonable possibility of needing a blood transfusion, the patient (or the patient's legal contact center representative) was given the [facility] standardized written summary, pursuant to the [place] [employer] Blood Safety Act ([place] Health and Safety Code # 1645, as amended). I attest that I re-evaluated the patient just prior to the surgery and that there has been no change in the patient's H&P, except as documented below: TIMMY GARNER Mar 22, 2017 11:44
--- NOTE | 2017-03-22 11:52 | Pulmonology Progress Note ---
Assessment/Plan Problems: (1) Respiratory disorder with ventilator dependence (2) Respiratory failure (3) COPD (chronic obstructive pulmonary disease) (4) Chronic paranoid schizophrenia (5) Alzheimer disease Respiratory: monitor respiratory rate, adjust FIO2, CXR Cardiac: continue to monitor HR/BP Renal: F/U I&O, keep IV fluid, check electrolytes Infectious Disease: check cultures, continue antibiotics Gastrointestinal: continue feedings/current rate Endocrine: monitor blood sugar, check HgA1C, continue sliding scale insulin Hematologic: monitor H/H, transfuse if hgb<8.5 Neurologic: PRN Ativan, keep patient comfortable Prophylaxis: Protonix Disposition: keep in ICU Notes Reviewed: tobacco drier operator Discussed with: nurses, consultants, rifle case repairer Subjective ROS Limited/Unobtainable: No Constitutional: Reports: no symptoms HEENT: Repors: no symptoms Respiratory: Reports: no symptoms Allergies: Coded Allergies: No Known Allergies (Unverified , 10/20/16) Objective Last 24 Hour Vital Signs Date Time Temp Pulse Resp B/P (MAP) Pulse Ox O2 Delivery O2 Flow Rate FiO2 03/22/17 11:05 82 25 35 03/22/17 08:59 78 142/74 03/22/17 08:50 68 24 35 03/22/17 08:00 35 03/22/17 08:00 79 03/22/17 08:00 97.7 79 18 100/52 98 Mechanical Ventilator 35 03/22/17 06:50 86 20 99 Mechanical Ventilator 35 03/22/17 06:50 35 03/22/17 06:50 84 20 35 03/22/17 06:50 84 20 99 Mechanical Ventilator 35 03/22/17 05:01 87 23 35 03/22/17 04:00 88 03/22/17 04:00 35 03/22/17 04:00 97.8 85 22 121/76 97 Mechanical Ventilator 35 03/22/17 03:21 74 30 35 03/22/17 01:29 73 21 99 Mechanical Ventilator 35 03/22/17 01:20 35 03/22/17 01:20 91 20 99 Mechanical Ventilator 35 03/22/17 01:17 91 27 35 03/22/17 00:03 99.0 03/22/17 00:00 97.7 80 22 128/61 97 Mechanical Ventilator 35 03/21/17 23:03 88 32 35 03/21/17 20:39 86 28 35 03/21/17 20:28 94 150/68 03/21/17 20:00 93 03/21/17 20:00 35 03/21/17 19:43 99.0 94 22 150/68 97 Mechanical Ventilator 35 03/21/17 19:29 89 32 99 Mechanical Ventilator 35 03/21/17 19:22 35 03/21/17 19:22 98 22 98 Mechanical Ventilator 35 03/21/17 19:04 78 17 35 03/21/17 17:22 88 30 35 03/21/17 16:00 92 03/21/17 16:00 98.6 92 22 92/74 97 Mechanical Ventilator 35 03/21/17 16:00 35 03/21/17 14:30 94 33 35 03/21/17 14:29 94 34 99 Mechanical Ventilator 35 03/21/17 14:29 35 03/21/17 14:22 93 24 99 Mechanical Ventilator 35 03/21/17 12:33 92 24 35 03/21/17 12:00 91 03/21/17 12:00 35 Intake and Output 03/21/17 03/22/17 19:00 07:00 Intake Total 1070 ml 375 ml Output Total 890 ml 350 ml Balance 180 ml 25 ml Free Water 300 ml 100 ml IV Total 55 ml Tube Feeding 715 ml 275 ml Output Urine Total 890 ml 350 ml # Bowel Movements 3 2 General Appearance: WD/WN, no acute distress HEENT: normocephalic, anicteric Respiratory/Chest: chest wall non-tender, lungs clear Cardiovascular: normal peripheral pulses, normal rate Abdomen: normal bowel sounds, soft, non tender Genitourinary: normal external genitalia Extremities: no clubbing Neurologic/Psychiatric: mailroom associate II-XII grossly normal, no motor/sensory deficits, normal mood/affect Lymphatic: no groin adenopathy Musculoskeletal: no effusion Laboratory Tests 03/22/17 04:25: White Blood Count 9.7, Red Blood Count 3.87L, Hemoglobin 11.2L, Hematocrit 35.6L , Mean Corpuscular Volume 92, Mean Corpuscular Hemoglobin 29.0, Mean Corpuscular Hemoglobin Concent 31.5L, Red Cell Distribution Width 13.4, Platelet Count 476H, Mean Platelet Volume 6.3L, Neutrophils (%) (Auto) 55.3, Lymphocytes (%) (Auto) 28.7, Monocytes (%) (Auto) 8.5, Eosinophils (%) (Auto) 6.4H, Basophils (%) (Auto) 1.0, Sodium Level 142, Potassium Level 3.8, Chloride Level 109H, Carbon Dioxide Level 27, Anion Gap 6, Blood Urea Nitrogen 17, Creatinine 1.0, Estimat Glomerular Filtration Rate > 60, Glucose Level 100, Calcium Level 7.7L Current Medications Medications (Trade) Dose Ordered Sig/Ant Route PRN Reason Start Time Stop Time Status Last Admin Dose Admin Acetaminophen (Tylenol) 650 mg Q4H PRN ORAL Mild Pain/Temp > 100.5 03/20/17 20:45 04/03/17 08:44 03/21/17 23:04 Albuterol/ Ipratropium (Albuterol/ Ipratropium) 3 ml Q4H PRN HHN Shortness of Breath 03/20/17 21:00 03/25/17 16:59 Albuterol/ Ipratropium (Albuterol/ Ipratropium) 3 ml Q6HRT HHN 03/20/17 19:00 03/24/17 19:00 03/22/17 06:57 Artificial Tears (Akwa-Tears) 2 drop Q2H PRN BOTH EYES Dry Eyes 03/20/17 19:15 04/08/17 09:14 Aspirin (ASA) 81 mg DAILY ORAL 03/21/17 09:00 04/19/17 08:59 03/21/17 08:20 Atorvastatin Calcium (Lipitor) 40 mg BEDTIME ORAL 03/20/17 21:00 04/18/17 20:59 03/21/17 20:28 Carvedilol (Coreg) 3.125 mg EVERY 12 HOURS PEG 03/20/17 21:00 04/12/17 08:59 03/22/17 08:59 Chlorhexidine Gluconate (Lisa-Hex 2%) 1 applic DAILY@1999 TOPIC 03/20/17 20:00 04/08/17 19:59 03/21/17 20:27 Docusate Sodium (Colace) 100 mg BID GT 03/21/17 09:00 04/10/17 21:29 03/21/17 18:20 Lorazepam (Ativan 2mg/ml 1ml) 2 mg Q4H PRN IV For Anxiety 03/20/17 20:00 03/24/17 11:59 Morphine Sulfate (Morphine Sulfate) 2 mg Q4H PRN IVP Severe Pain (Pain Scale 7-10) 03/20/17 20:00 03/24/17 11:59 Pantoprazole (Protonix) 40 mg Q12HR IVP 03/20/17 21:00 04/03/17 20:59 03/22/17 08:59 Polyethylene Glycol (Miralax) 17 gm BEDTIME ORAL 03/20/17 21:00 04/10/17 21:29 MARCELA SCHULZ Mar 22, 2017 11:52
[2017-03-22 12:00] VITALS: BP 117/73
--- NOTE | 2017-03-22 12:30 | General Progress Note ---
Progress Note Progress Note pt needs a PEG to feed him. He cant' sign the consent. There are no family members to sign it either. MARCELA SCHULZ Mar 22, 2017 12:30
--- NOTE | 2017-03-22 12:44 | General Progress Note ---
Assessment/Plan Status: unchanged Assessment/Plan 1. VDRF 2. Sepsis. 2. Healthcare-associated pneumonia (?) 3. Acute hypoxemic respiratory failure. 4. Acute anemia. 5. Hypokalemia. 6. Hypernatremia. 7. Urinary tract infection-healthcare related. 8. Gastrointestinal and deep vein thrombosis prophylaxis. 9. Abnormal Troponin 10. Dysphagia PLAN: CURRENT MANAGEMENT Notes from cardiology, Nephrology, Pulmonary reviewed Poor Prognosis Active current ID management S/p trach and PEG placement Subjective ROS Limited/Unobtainable: Yes Allergies: Coded Allergies: No Known Allergies (Unverified , 10/20/16) Objective Last 24 Hour Vital Signs Date Time Temp Pulse Resp B/P (MAP) Pulse Ox O2 Delivery O2 Flow Rate FiO2 03/22/17 12:00 97.9 80 18 117/73 97 Mechanical Ventilator 35 03/22/17 12:00 79 03/22/17 12:00 35 03/22/17 11:05 82 25 35 03/22/17 08:59 78 142/74 03/22/17 08:50 68 24 35 03/22/17 08:00 35 03/22/17 08:00 79 03/22/17 08:00 97.7 79 18 100/52 98 Mechanical Ventilator 35 03/22/17 06:50 86 20 99 Mechanical Ventilator 35 03/22/17 06:50 35 03/22/17 06:50 84 20 35 03/22/17 06:50 84 20 99 Mechanical Ventilator 35 03/22/17 05:01 87 23 35 03/22/17 04:00 88 03/22/17 04:00 35 03/22/17 04:00 97.8 85 22 121/76 97 Mechanical Ventilator 35 03/22/17 03:21 74 30 35 03/22/17 01:29 73 21 99 Mechanical Ventilator 35 03/22/17 01:20 35 03/22/17 01:20 91 20 99 Mechanical Ventilator 35 03/22/17 01:17 91 27 35 03/22/17 00:03 99.0 03/22/17 00:00 97.7 80 22 128/61 97 Mechanical Ventilator 35 03/21/17 23:03 88 32 35 03/21/17 20:39 86 28 35 03/21/17 20:28 94 150/68 03/21/17 20:00 93 03/21/17 20:00 35 03/21/17 19:43 99.0 94 22 150/68 97 Mechanical Ventilator 35 03/21/17 19:29 89 32 99 Mechanical Ventilator 35 03/21/17 19:22 35 03/21/17 19:22 98 22 98 Mechanical Ventilator 35 03/21/17 19:04 78 17 35 03/21/17 17:22 88 30 35 03/21/17 16:00 92 03/21/17 16:00 98.6 92 22 92/74 97 Mechanical Ventilator 35 03/21/17 16:00 35 03/21/17 14:30 94 33 35 03/21/17 14:29 94 34 99 Mechanical Ventilator 35 03/21/17 14:29 35 03/21/17 14:22 93 24 99 Mechanical Ventilator 35 Intake and Output 03/21/17 03/22/17 19:00 07:00 Intake Total 1070 ml 375 ml Output Total 890 ml 350 ml Balance 180 ml 25 ml Free Water 300 ml 100 ml IV Total 55 ml Tube Feeding 715 ml 275 ml Output Urine Total 890 ml 350 ml # Bowel Movements 3 2 Laboratory Tests 03/22/17 04:25: White Blood Count 9.7, Red Blood Count 3.87L, Hemoglobin 11.2L, Hematocrit 35.6L , Mean Corpuscular Volume 92, Mean Corpuscular Hemoglobin 29.0, Mean Corpuscular Hemoglobin Concent 31.5L, Red Cell Distribution Width 13.4, Platelet Count 476H, Mean Platelet Volume 6.3L, Neutrophils (%) (Auto) 55.3, Lymphocytes (%) (Auto) 28.7, Monocytes (%) (Auto) 8.5, Eosinophils (%) (Auto) 6.4H, Basophils (%) (Auto) 1.0, Sodium Level 142, Potassium Level 3.8, Chloride Level 109H, Carbon Dioxide Level 27, Anion Gap 6, Blood Urea Nitrogen 17, Creatinine 1.0, Estimat Glomerular Filtration Rate > 60, Glucose Level 100, Calcium Level 7.7L Height (Feet): 5 Height (Inches): 8.00 Weight (Pounds): 151 General Appearance: other - awake , Limited eval , as patient is not following the commands Neck: other - Trach in place Respiratory/Chest: rhonchi - bilaterally Abdomen: other - PEG in place Extremities: other - Limited eval , as patient is not following the commands Neurologic: disoriented, other - Limited eval , as patient is not following the commands Objective comfortable. entubated. limited eval. as patient not following commands Colton Charles MD Mar 22, 2017 12:44
[2017-03-22] MEDS ORDERED: NS 500ML IV ONE (12:55)
--- NOTE | 2017-03-22 13:02 | Anethesia Preoperative Eval ---
Anesthesia Pre-op PMH/ROS General Date of Evaluation: Mar 22, 2017 Time of Evaluation: 12:55 Anesthesiologist: Almas ASA Score: ASA 4 Mallampati Score Class I : Soft palate, uvula, fauces, pillars visible Class II: Soft palate, uvula, fauces visible Class III: Soft palate, base of uvula visible Class IV: Only hard plate visible Mallampati Classification: Class II Surgeon: Natasha Diagnosis: Failure to thrive Surgical Procedure: PEG Allergies: Coded Allergies: No Known Allergies (Unverified , 10/20/16) Medications: see eMAR Past Medical History Cardiovascular: Reports: HTN Pulmonary: Reports: COPD, other - Respiratory failure this admission Neurologic/Psychiatric: Reports: dementia PM Narrative: HTN, COPD, respiratory failure this admission, Alzheimer's Anesthesia Pre-op Phys. Exam Physician Exam Last Vital Signs Date Time Temp Pulse Resp B/P (MAP) Pulse Ox O2 Delivery O2 Flow Rate FiO2 03/22/17 12:00 97.9 80 18 117/73 97 Mechanical Ventilator 35 Constitutional: other - Patient ventilated Neurologic: other - Patient on a vent Cardiovascular: RRR Gastrointestinal: S/NT/ND Airway Exam Mallampati Score: Class II MO: full ROM: full Anesthesia Pre-op A/P Labs Hematology Test 03/22/17 04:25 White Blood Count 9.7 K/UL (4.8-10.8) Red Blood Count 3.87 M/UL (4.70-6.10) L Hemoglobin 11.2 G/DL (14.2-18.0) L Hematocrit 35.6 % (42.0-52.0) L Mean Corpuscular Volume 92 FL (80-99) Mean Corpuscular Hemoglobin 29.0 PG (27.0-31.0) Mean Corpuscular Hemoglobin Concent 31.5 G/DL (32.0-36.0) L Red Cell Distribution Width 13.4 % (11.6-14.8) Platelet Count 476 K/UL (150-450) H Mean Platelet Volume 6.3 FL (6.5-10.1) L Neutrophils (%) (Auto) 55.3 % (45.0-75.0) Lymphocytes (%) (Auto) 28.7 % (20.0-45.0) Monocytes (%) (Auto) 8.5 % (1.0-10.0) Eosinophils (%) (Auto) 6.4 % (0.0-3.0) H Basophils (%) (Auto) 1.0 % (0.0-2.0) Chemistry Test 03/22/17 04:25 Sodium Level 142 MMOL/L (136-145) Potassium Level 3.8 MMOL/L (3.5-5.1) Chloride Level 109 MMOL/L (98-107) H Carbon Dioxide Level 27 MMOL/L (21-32) Anion Gap 6 mmol/L (5-15) Blood Urea Nitrogen 17 mg/dL (7-18) Creatinine 1.0 MG/DL (0.55-1.30) Estimat Glomerular Filtration Rate > 60 mL/min (>60) Glucose Level 100 MG/DL (74-106) Calcium Level 7.7 MG/DL (8.5-10.1) L Studies Pre-op Studies: EKG - ST, no acute changes Risk Assessment & Plan Assessment: Failure to thrive Plan: GA, TIVA Status Change Before Surgery: CLARITZA Barnes M.D. Mar 22, 2017 13:02
--- NOTE | 2017-03-22 13:03 | Immediate Post-Op Evaluation ---
Immediate Post-Op Evalulation Immediate Post-Op Evalulation Procedure: PEG Date of Evaluation: Mar 22, 2017 Time of Evaluation: 13:45 IV Fluids: 125 Blood Pressure Systolic: 102 Blood Pressure Diastolic: 66 Pulse Rate: 90 Respiratory Rate: 16 O2 Sat by Pulse Oximetry: 100 Pain Score (1-10): 0 Nausea: No Vomiting: No Complications No complication Patient Status: reacts, ventilated, none Hydration Status: adequate Drug: Ancef Given Within 1 Hr of Incision: Yes CLARITZA CHRISTENSEN M.D. Mar 22, 2017 13:03
[2017-03-22] MEDS ORDERED: ceFAZolin 1gm/50ml Premix 50 ML IV ONE (13:15)
--- NOTE | 2017-03-22 14:49 | Endoscopy Procedure Note ---
Endoscopy Procedure Note Indication for Procedure: dysphagia Procedures Performed: EGD, PEG Operative Findings/Diagnosis: same Specimen: none Pt Tolerated Procedure Well: Yes Estimated Blood Loss: none Anesthesiologist: poncho Anesthesia: MAC Implant(s) used?: No 50 yrs or older w/o bx or poly: Not Applicable 10yrs. F/U not recommended: Not Applicable TIMMY GARNER Mar 22, 2017 14:49
[2017-03-22 16:00] VITALS: BP 106/60
--- NOTE | 2017-03-22 16:30 | Procedure Note ---
DATE OF PROCEDURE: 03/22/2017 SURGEON: Tr Kaur M.D. PROCEDURE: Upper endoscopy with PEG placement. ANESTHESIOLOGIST: Palmer Coburn M.D. INSTRUMENT: Olympus adult flexible upper endoscope. INDICATION: Dysphagia. The procedure, risks, benefits, and possible consequences, including hemorrhage, aspiration, perforation and infection, and alternative treatments, were explained to the patient/legal guardian by Dr. Tr Kaur and the patient/legal guardian understood and accepted these risks. DESCRIPTION OF PROCEDURE: After informed consent was obtained and the patient was adequately sedated, Olympus upper endoscope was advanced from the mouth into the second portion of the duodenum and retroflexion was performed in the stomach. The patient has diffuse severe atrophic gastritis. Then, under endoscopic guidance under sterile condition, a 20-Divehi pull type of G-tube was placed in the epigastric area. The distance from the tip of the tube to skin was about 2 cm in size. The patient tolerated the procedure very well without any complication. SUMMARY OF FINDINGS: 1. Status post successful PEG placement. 2. Atrophic gastritis. RECOMMENDATIONS: 1. Abdominal binder. 2. Elevate the head of the bed at all times. 3. G-tube flush. 4. G-tube care. 5. Start tube feeding later today. Tr Kaur M.D. DR: ALINA JOB#: [id number] CC:
[2017-03-22 20:00] VITALS: BP 105/60
[2017-03-22] MEDS: Miralax 17gm pkt ORAL SCH (21:00)
[2017-03-22] MEDS: Atorvastatin 20mg tab ORAL SCH (21:16)
[2017-03-22] MEDS: Dyna-Hex 2% Top Sol 2oz TOPIC SCH (21:18)
--- NOTE | 2017-03-22 21:48 | Diagnostic Imaging Report ---
Indication: Dyspnea Comparison: 03/20/2017 A single view chest radiograph was obtained. Findings: Parenchymal opacities are demonstrated within the lungs bilaterally unchanged from recent exams. Please correlate clinically. Heart size is stable. Tracheostomy, left-sided PICC line and NG tube are stable. IMPRESSION: Patchy bilateral infiltrate appears stable.
--- NOTE | 2017-03-22 22:01 | General Progress Note ---
Assessment/Plan Status: unchanged Assessment/Plan Assessment/Plan #. Leukocytosis 2/2 Sepsis. ID following, on abx --> improving, continue to follow #. Thrombocytosis likely reactive process, stable #. Anemia of chronic disease. --> Hgb goal above 7. Transfuse as needed, work up has been reviewed --> Has been stable. #. Respiratory failure to proceed with trach #. COPD #. Hypokalemia. #. Hypernatremia. Subjective Date patient seen: Mar 22, 2017 Constitutional: Denies: no symptoms, chills, diaphoresis, fever, malaise, weakness, other HEENT: Denies: no symptoms, eye pain, blurred vision, tearing, double vision, ear pain, ear discharge, nose pain, nose congestion, throat pain, throat swelling, mouth pain, mouth swelling, other Cardiovascular: Denies: no symptoms, chest pain, edema, irregular heart rate, lightheadedness, palpitations, syncope, other Respiratory: Denies: no symptoms, cough, orthopnea, shortness of breath, SOB with excertion, SOB at rest, sputum, stridor, wheezing, other Gastrointestinal/Abdominal: Denies: no symptoms, abdomen distended, abdominal pain, black stools, tarry stools, blood in stool, constipated, diarrhea, difficulty swallowing, nausea, poor appetite, poor fluid intake, rectal bleeding , vomiting, other Genitourinary: Denies: no symptoms, burning, discharge, frequency, flank pain, hematuria, incontinence, pain, urgency, other Allergies: Coded Allergies: No Known Allergies (Unverified , 10/20/16) Subjective S/P trach. Uncooperative. NAD. Objective Last 24 Hour Vital Signs Date Time Temp Pulse Resp B/P (MAP) Pulse Ox O2 Delivery O2 Flow Rate FiO2 03/22/17 21:17 92 106/60 03/22/17 20:47 92 20 35 03/22/17 20:00 35 03/22/17 20:00 98.3 90 27 105/60 99 Mechanical Ventilator 35 03/22/17 20:00 88 03/22/17 19:13 89 16 99 Mechanical Ventilator 35 03/22/17 19:03 35 03/22/17 19:03 89 22 35 03/22/17 19:03 89 22 98 Mechanical Ventilator 35 03/22/17 16:50 79 20 35 03/22/17 16:00 35 03/22/17 16:00 82 03/22/17 16:00 97.8 82 18 106/60 99 Mechanical Ventilator 35 03/22/17 15:20 83 20 35 03/22/17 13:36 90 16 100 03/22/17 13:00 86 27 35 03/22/17 13:00 Mechanical Ventilator 35 03/22/17 13:00 86 20 99 Mechanical Ventilator 35 03/22/17 12:00 97.9 80 18 117/73 97 Mechanical Ventilator 35 03/22/17 12:00 79 03/22/17 12:00 35 03/22/17 11:05 82 25 35 03/22/17 08:59 78 142/74 03/22/17 08:50 68 24 35 03/22/17 08:00 35 03/22/17 08:00 79 03/22/17 08:00 97.7 79 18 100/52 98 Mechanical Ventilator 35 03/22/17 06:50 86 20 99 Mechanical Ventilator 35 03/22/17 06:50 35 03/22/17 06:50 84 20 35 03/22/17 06:50 84 20 99 Mechanical Ventilator 35 03/22/17 05:01 87 23 35 03/22/17 04:00 88 03/22/17 04:00 35 03/22/17 04:00 97.8 85 22 121/76 97 Mechanical Ventilator 35 03/22/17 03:21 74 30 35 03/22/17 01:29 73 21 99 Mechanical Ventilator 35 03/22/17 01:20 35 03/22/17 01:20 91 20 99 Mechanical Ventilator 35 03/22/17 01:17 91 27 35 03/22/17 00:03 99.0 03/22/17 00:00 97.7 80 22 128/61 97 Mechanical Ventilator 35 03/21/17 23:03 88 32 35 Intake and Output 03/21/17 03/22/17 19:00 07:00 Intake Total 1070 ml 375 ml Output Total 890 ml 350 ml Balance 180 ml 25 ml Free Water 300 ml 100 ml IV Total 55 ml Tube Feeding 715 ml 275 ml Output Urine Total 890 ml 350 ml # Bowel Movements 3 2 Laboratory Tests 03/22/17 04:25: White Blood Count 9.7, Red Blood Count 3.87L, Hemoglobin 11.2L, Hematocrit 35.6L , Mean Corpuscular Volume 92, Mean Corpuscular Hemoglobin 29.0, Mean Corpuscular Hemoglobin Concent 31.5L, Red Cell Distribution Width 13.4, Platelet Count 476H, Mean Platelet Volume 6.3L, Neutrophils (%) (Auto) 55.3, Lymphocytes (%) (Auto) 28.7, Monocytes (%) (Auto) 8.5, Eosinophils (%) (Auto) 6.4H, Basophils (%) (Auto) 1.0, Sodium Level 142, Potassium Level 3.8, Chloride Level 109H, Carbon Dioxide Level 27, Anion Gap 6, Blood Urea Nitrogen 17, Creatinine 1.0, Estimat Glomerular Filtration Rate > 60, Glucose Level 100, Calcium Level 7.7L Height (Feet): 5 Height (Inches): 8.00 Weight (Pounds): 151 General Appearance: no apparent distress Cardiovascular: normal rate Respiratory/Chest: decreased breath sounds Abdomen: non tender, soft Justin Anthony Mar 22, 2017 22:01
--- NOTE | 2017-03-22 23:51 | Cardiology Progress Note ---
Assessment/Plan Assessment/Plan 1, Septic shock, improved. 2. Acute NSTEMI vs troponin leak. Continue coreg, ASA and atorvastatin. 3. Bacteremia. 4. Hypovolemia, hydration. 5. Pulmonary hypertension. 6. VDRF, s/p trach placement, POD #2. Subjective Subjective Sinus rhythm at 92. s/p trach placement, POD# 2 Transferred to [place]. Objective Last 24 Hour Vital Signs Date Time Temp Pulse Resp B/P (MAP) Pulse Ox O2 Delivery O2 Flow Rate FiO2 03/22/17 22:50 85 25 35 03/22/17 21:17 92 106/60 03/22/17 20:47 92 20 35 03/22/17 20:00 35 03/22/17 20:00 98.3 90 27 105/60 99 Mechanical Ventilator 35 03/22/17 20:00 88 03/22/17 19:13 89 16 99 Mechanical Ventilator 35 03/22/17 19:03 35 03/22/17 19:03 89 22 35 03/22/17 19:03 89 22 98 Mechanical Ventilator 35 03/22/17 16:50 79 20 35 03/22/17 16:00 35 03/22/17 16:00 82 03/22/17 16:00 97.8 82 18 106/60 99 Mechanical Ventilator 35 03/22/17 15:20 83 20 35 03/22/17 13:36 90 16 100 03/22/17 13:00 86 27 35 03/22/17 13:00 Mechanical Ventilator 35 03/22/17 13:00 86 20 99 Mechanical Ventilator 35 03/22/17 12:00 97.9 80 18 117/73 97 Mechanical Ventilator 35 03/22/17 12:00 79 03/22/17 12:00 35 03/22/17 11:05 82 25 35 03/22/17 08:59 78 142/74 03/22/17 08:50 68 24 35 03/22/17 08:00 35 03/22/17 08:00 79 03/22/17 08:00 97.7 79 18 100/52 98 Mechanical Ventilator 35 03/22/17 06:50 86 20 99 Mechanical Ventilator 35 03/22/17 06:50 35 03/22/17 06:50 84 20 35 03/22/17 06:50 84 20 99 Mechanical Ventilator 35 03/22/17 05:01 87 23 35 03/22/17 04:00 88 03/22/17 04:00 35 03/22/17 04:00 97.8 85 22 121/76 97 Mechanical Ventilator 35 03/22/17 03:21 74 30 35 03/22/17 01:29 73 21 99 Mechanical Ventilator 35 03/22/17 01:20 35 03/22/17 01:20 91 20 99 Mechanical Ventilator 35 03/22/17 01:17 91 27 35 03/22/17 00:03 99.0 03/22/17 00:00 97.7 80 22 128/61 97 Mechanical Ventilator 35 Intake and Output 03/21/17 03/22/17 19:00 07:00 Intake Total 1070 ml 375 ml Output Total 890 ml 350 ml Balance 180 ml 25 ml Free Water 300 ml 100 ml IV Total 55 ml Tube Feeding 715 ml 275 ml Output Urine Total 890 ml 350 ml # Bowel Movements 3 2 Laboratory Tests Test 03/22/17 04:25 White Blood Count 9.7 K/UL (4.8-10.8) Red Blood Count 3.87 M/UL (4.70-6.10) L Hemoglobin 11.2 G/DL (14.2-18.0) L Hematocrit 35.6 % (42.0-52.0) L Mean Corpuscular Volume 92 FL (80-99) Mean Corpuscular Hemoglobin 29.0 PG (27.0-31.0) Mean Corpuscular Hemoglobin Concent 31.5 G/DL (32.0-36.0) L Red Cell Distribution Width 13.4 % (11.6-14.8) Platelet Count 476 K/UL (150-450) H Mean Platelet Volume 6.3 FL (6.5-10.1) L Neutrophils (%) (Auto) 55.3 % (45.0-75.0) Lymphocytes (%) (Auto) 28.7 % (20.0-45.0) Monocytes (%) (Auto) 8.5 % (1.0-10.0) Eosinophils (%) (Auto) 6.4 % (0.0-3.0) H Basophils (%) (Auto) 1.0 % (0.0-2.0) Sodium Level 142 MMOL/L (136-145) Potassium Level 3.8 MMOL/L (3.5-5.1) Chloride Level 109 MMOL/L (98-107) H Carbon Dioxide Level 27 MMOL/L (21-32) Anion Gap 6 mmol/L (5-15) Blood Urea Nitrogen 17 mg/dL (7-18) Creatinine 1.0 MG/DL (0.55-1.30) Estimat Glomerular Filtration Rate > 60 mL/min (>60) Glucose Level 100 MG/DL (74-106) Calcium Level 7.7 MG/DL (8.5-10.1) L Objective HEENT: Temporal wasting. PERRLA, EOMI. Dry mucous membranes. + Trach in place. NECK: Negative JVP, no carotid bruit. Lungs: Bilateral rhonchi. CVS: Regular rhythm. Rapid rate. Normal S1 and S2. No murmur. ABDOMEN: Soft, NT/ND, + BS EXT: here is no edema, clubbing or cyanosis. ERIN OGDEN Mar 22, 2017 23:51
[2017-03-23] VITALS: BP 100/60
--- NOTE | 2017-03-23 00:25 | Cardiology Report ---
APPROVED REPORT EKG Measurement Heart [id number] Normal sinus rhythm Normal ECG
[2017-03-23] MEDS: Albuterol/Ipratropium 3ml neb HHN SCH ×3 (01:02→13:10)
[2017-03-23 04:00] VITALS: BP 101/68
[2017-03-23 05:15] LABS: BASOPHILS % (AUTO) 0.9 % (0.0-2.0); EOSINOPHILS % (AUTO) 6.1 % (0.0-3.0); HEMATOCRIT 34.7 % (42.0-52.0); HEMOGLOBIN 10.9 G/DL (14.2-18.0); LYMPHOCYTES % (AUTO) 27.8 % (20.0-45.0); MEAN CORPUSCULAR VOLUME 91 FL (80-99); MONOCYTES % (AUTO) 7.5 % (1.0-10.0); NEUTROPHILS % (AUTO) 57.8 % (45.0-75.0); PLATELET COUNT 464 K/UL (150-450); RED BLOOD COUNT 3.79 M/UL (4.70-6.10); RED CELL DISTRIBUTION WIDTH 13.5 % (11.6-14.8)
[2017-03-23 06:13] LABS: ANION GAP 7 mmol/L (5-15); BLOOD UREA NITROGEN 18 mg/dL (7-18); CALCIUM 7.9 MG/DL (8.5-10.1); CARBON DIOXIDE 28 MMOL/L (21-32); CHLORIDE 107 MMOL/L (98-107); CREATININE 1.1 MG/DL (0.55-1.30); POTASSIUM 3.8 MMOL/L (3.5-5.1); SODIUM 142 MMOL/L (136-145)
[2017-03-23 08:00] VITALS: BP 122/73
[2017-03-23] MEDS: Aspirin Baby 81mg ORAL SCH (08:25)
[2017-03-23] MEDS: Pantoprazole Inj IVP SCH (08:26)
[2017-03-23] MEDS: Docusate 100mg/10ml Liq GT SCH ×2 (08:26→18:00)
--- NOTE | 2017-03-23 10:39 | Pulmonology Progress Note ---
Assessment/Plan Problems: (1) Respiratory disorder with ventilator dependence (2) Respiratory failure (3) COPD (chronic obstructive pulmonary disease) (4) Chronic paranoid schizophrenia (5) Alzheimer disease Respiratory: monitor respiratory rate, adjust FIO2 Renal: F/U I&O Gastrointestinal: hold feedings Endocrine: check HgA1C, continue sliding scale insulin Hematologic: monitor H/H, transfuse if hgb<8.5 Neurologic: PRN Ativan, keep patient comfortable Affect: PRN ativan Prophylaxis: Protonix Notes Reviewed: electrical appliance repairer, renal Discussed with: consultants, bilingual case manager Subjective ROS Limited/Unobtainable: No Interval Events: comfortable Constitutional: Reports: chills Allergies: Coded Allergies: No Known Allergies (Unverified , 10/20/16) Objective Last 24 Hour Vital Signs Date Time Temp Pulse Resp B/P (MAP) Pulse Ox O2 Delivery O2 Flow Rate FiO2 03/23/17 09:28 81 30 35 03/23/17 08:26 95 122/73 03/23/17 08:00 88 03/23/17 08:00 98.6 95 22 122/73 99 Mechanical Ventilator 35 03/23/17 08:00 35 03/23/17 07:38 87 19 99 Mechanical Ventilator 35 03/23/17 07:19 88 25 97 Mechanical Ventilator 35 03/23/17 07:16 88 26 35 03/23/17 05:07 88 26 35 03/23/17 04:00 84 03/23/17 04:00 98.7 87 22 101/68 100 Mechanical Ventilator 35 03/23/17 04:00 35 03/23/17 03:03 88 21 35 03/23/17 01:11 86 17 100 Mechanical Ventilator 35 03/23/17 01:02 85 24 99 Mechanical Ventilator 35 03/23/17 01:02 85 24 35 03/23/17 01:02 35 03/23/17 00:00 84 03/23/17 00:00 35 03/23/17 00:00 98.6 82 26 100/60 95 Mechanical Ventilator 35 03/22/17 22:50 85 25 35 03/22/17 21:17 92 106/60 03/22/17 20:47 92 20 35 03/22/17 20:00 35 03/22/17 20:00 98.3 90 27 105/60 99 Mechanical Ventilator 35 03/22/17 20:00 88 03/22/17 19:13 89 16 99 Mechanical Ventilator 35 03/22/17 19:03 35 03/22/17 19:03 89 22 35 03/22/17 19:03 89 22 98 Mechanical Ventilator 35 03/22/17 16:50 79 20 35 03/22/17 16:00 35 03/22/17 16:00 82 03/22/17 16:00 97.8 82 18 106/60 99 Mechanical Ventilator 35 03/22/17 15:20 83 20 35 03/22/17 13:36 90 16 100 03/22/17 13:00 86 27 35 03/22/17 13:00 Mechanical Ventilator 35 03/22/17 13:00 86 20 99 Mechanical Ventilator 35 03/22/17 12:00 97.9 80 18 117/73 97 Mechanical Ventilator 35 03/22/17 12:00 79 03/22/17 12:00 35 03/22/17 11:05 82 25 35 Intake and Output 03/22/17 03/23/17 19:00 07:00 Intake Total 20 ml Output Total 500 ml Balance -480 ml Tube Feeding 20 ml Output Urine Total 500 ml # Bowel Movements 2 General Appearance: WD/WN HEENT: normocephalic, atraumatic Respiratory/Chest: chest wall non-tender, lungs clear Cardiovascular: normal peripheral pulses, normal rate Abdomen: normal bowel sounds, no organomegaly Genitourinary: normal external genitalia Extremities: no cyanosis Neurologic/Psychiatric: public weigher II-XII grossly normal, no motor/sensory deficits Lymphatic: no neck adenopathy Musculoskeletal: normal muscle bulk Laboratory Tests 03/23/17 03:00: White Blood Count 11.0H, Red Blood Count 3.79L, Hemoglobin 10.9L, Hematocrit 34.7L, Mean Corpuscular Volume 91, Mean Corpuscular Hemoglobin 28.6, Mean Corpuscular Hemoglobin Concent 31.4L, Red Cell Distribution Width 13.5, Platelet Count 464H, Mean Platelet Volume 6.2L, Neutrophils (%) (Auto) 57.8, Lymphocytes (%) (Auto) 27.8, Monocytes (%) (Auto) 7.5, Eosinophils (%) (Auto) 6.1H, Basophils (%) (Auto) 0.9, Sodium Level 142, Potassium Level 3.8, Chloride Level 107, Carbon Dioxide Level 28, Anion Gap 7, Blood Urea Nitrogen 18, Creatinine 1.1, Estimat Glomerular Filtration Rate > 60, Glucose Level 92, Calcium Level 7.9L, Coccidioides Antibody (Comp Fix) [Pending], Cryptococcus Antigen [Pending] Current Medications Medications (Trade) Dose Ordered Sig/Ant Route PRN Reason Start Time Stop Time Status Last Admin Dose Admin Acetaminophen (Tylenol) 650 mg Q4H PRN ORAL Mild Pain/Temp > 100.5 03/20/17 20:45 04/03/17 08:44 03/22/17 21:18 Albuterol/ Ipratropium (Albuterol/ Ipratropium) 3 ml Q4H PRN HHN Shortness of Breath 03/20/17 21:00 03/25/17 16:59 Albuterol/ Ipratropium (Albuterol/ Ipratropium) 3 ml Q6HRT HHN 03/20/17 19:00 03/24/17 19:00 03/23/17 07:16 Artificial Tears (Akwa-Tears) 2 drop Q2H PRN BOTH EYES Dry Eyes 03/20/17 19:15 04/08/17 09:14 Aspirin (ASA) 81 mg DAILY ORAL 03/21/17 09:00 04/19/17 08:59 03/23/17 08:25 Atorvastatin Calcium (Lipitor) 40 mg BEDTIME ORAL 03/20/17 21:00 04/18/17 20:59 03/22/17 21:16 Carvedilol (Coreg) 3.125 mg EVERY 12 HOURS PEG 03/20/17 21:00 04/12/17 08:59 03/23/17 08:26 Chlorhexidine Gluconate (Lisa-Hex 2%) 1 applic DAILY@1999 TOPIC 03/20/17 20:00 04/08/17 19:59 03/22/17 21:18 Docusate Sodium (Colace) 100 mg BID GT 03/21/17 09:00 04/10/17 21:29 03/22/17 18:17 Lorazepam (Ativan 2mg/ml 1ml) 2 mg Q4H PRN IV For Anxiety 03/20/17 20:00 03/24/17 11:59 Morphine Sulfate (Morphine Sulfate) 2 mg Q4H PRN IVP Severe Pain (Pain Scale 7-10) 03/20/17 20:00 03/24/17 11:59 Pantoprazole (Protonix) 40 mg Q12HR IVP 03/20/17 21:00 04/03/17 20:59 03/23/17 08:26 Polyethylene Glycol (Miralax) 17 gm BEDTIME ORAL 03/20/17 21:00 04/10/17 21:29 MARCELA SCHULZ Mar 23, 2017 10:39
--- NOTE | 2017-03-23 11:41 | Infectious Diseases Prog Note ---
Assessment/Plan Assessment/Plan ASSESSMENT: The patient is a 71-year-old male with: Aerococcus urinae bacteremia- ?source UTI however Ucx neg; r/o endocarditis as has been associated with endocarditis in the elderly.; s/p Rx -03/03 Bcx 03/18 +; 03/06 Neg x4 -Elevated CRp 21.0 03/06; CRP 1.2 03/19 (improving) -03/03 TTE: no vegetations, no significant valve abnormalities 03/16 CONS bacteremia-likely contaminant 03/12 03/16, 03/15 Bccx NTD x4 Sepsis, SP fever/SP -CT chest/abd/p w/: Somewhat limited exam due to motion artifact. Right upper lobe, right lower lobe, and left lower lobe atelectasis and consolidation. Likely pneumonia, otherwise nonspecific. Elevated right hemidiaphragm. Small left pleural effusion. Satisfactory positions of endotracheal and nasogastric tubes. No acute abdominal process. Degenerative lumbar spondylosis. Colonic interposition incidentally noted. Colonic diverticulosis. Beltran catheter. Prominent prostate. Degenerative changes of the right hip with heterotopic ossification Leukocytosis ,mild ( post op ) Sp trach 03/20, s/p PEG 03/22 HCAP Scx : ESBL EColi ; repeat SCx : 03/17 Annemarie : colonizer , s/p Rx- r/o fungal PNA -sp cx 03/11 +1 C. albicans(colonizer); -CXR 03/19: Diffuse right lung, left lower lobe infiltrates persist, unchanged. -CXR 03/17: Right upper lobe reticular consolidation persists, probably not significantly changed. There appears to be slightly improved retrocardiac aeration, but consolidation and atelectasis persists. There is decreased reticular consolidation in the left lung apex. There may be atelectasis of a of the left lower lobe; if so this is unchanged. -CXR 03/11: persistent extensive right upper lobe infiltrate. Infiltrate and pleural fluid in the left mid and lower lung persist, are probably unchanged allowing for slightly greater lung volumes on the current exam. -CXR 03/09: New right pulmonary infiltrate. Possible urinary tract infection 03/04 ucx neg; repeat u/a 03/11 u/a no pyuria Elevated inflammatory markers -ESR 94, CRP 14.2 03/11> 8 03/14; improving Influenza negative AST Elevation s/p PICC line 03/09 Positive cardiac enzymes. Acute renal failure, improving Dysphagia. Osteoarthritis. Hypertension. COPD. History of GERD History of H. pylori in the past Dementia with psychosis PLAN: -Continue to monitor off abx 03/22 SP Ancef x1 (periop) 03/21 SP Meropenem #14 03/20 SP IV Vanco #10 03/15 SP Dapto x1 03/08 SP vancomycin d# 5 03/07 SP Zosyn d# 4 -may need to remove PICC line if recurrent ConS bacteremia or recurrent fevers Monitor CBC/CMP.; Trend WBC Monitor chest x-ray. Monitor renal function. Trach/PEG care aspiration precautions decubitus ulcer prevention Subjective Allergies: Coded Allergies: No Known Allergies (Unverified , 10/20/16) Subjective afebrile mild leukocytosis s/p PEG yesterday remains on MV 35% off abx Objective Vital Signs Last 24 Hour Vital Signs Date Time Temp Pulse Resp B/P (MAP) Pulse Ox O2 Delivery O2 Flow Rate FiO2 03/23/17 10:40 84 16 35 03/23/17 09:28 81 30 35 03/23/17 08:26 95 122/73 03/23/17 08:00 88 03/23/17 08:00 98.6 95 22 122/73 99 Mechanical Ventilator 35 03/23/17 08:00 35 03/23/17 07:38 87 19 99 Mechanical Ventilator 35 03/23/17 07:19 88 25 97 Mechanical Ventilator 35 03/23/17 07:16 88 26 35 03/23/17 05:07 88 26 35 03/23/17 04:00 84 03/23/17 04:00 98.7 87 22 101/68 100 Mechanical Ventilator 35 03/23/17 04:00 35 03/23/17 03:03 88 21 35 03/23/17 01:11 86 17 100 Mechanical Ventilator 35 03/23/17 01:02 85 24 99 Mechanical Ventilator 35 03/23/17 01:02 85 24 35 03/23/17 01:02 35 03/23/17 00:00 84 03/23/17 00:00 35 03/23/17 00:00 98.6 82 26 100/60 95 Mechanical Ventilator 35 03/22/17 22:50 85 25 35 03/22/17 21:17 92 106/60 03/22/17 20:47 92 20 35 1/8/18 20:00 35 03/22/17 20:00 98.3 90 27 105/60 99 Mechanical Ventilator 35 03/22/17 20:00 88 03/22/17 19:13 89 16 99 Mechanical Ventilator 35 03/22/17 19:03 35 03/22/17 19:03 89 22 35 03/22/17 19:03 89 22 98 Mechanical Ventilator 35 03/22/17 16:50 79 20 35 03/22/17 16:00 35 03/22/17 16:00 82 03/22/17 16:00 97.8 82 18 106/60 99 Mechanical Ventilator 35 03/22/17 15:20 83 20 35 03/22/17 13:36 90 16 100 03/22/17 13:00 86 27 35 03/22/17 13:00 Mechanical Ventilator 35 03/22/17 13:00 86 20 99 Mechanical Ventilator 35 03/22/17 12:00 97.9 80 18 117/73 97 Mechanical Ventilator 35 03/22/17 12:00 79 03/22/17 12:00 35 Height (Feet): 5 Height (Inches): 8.00 Weight (Pounds): 150 Objective General Appearance: chornically ill, no distress EENT: PERRL/EOMI Neck: supplem trach in place Cardiovascular: RRR, no murmurs Respiratory/Chest: rhonchi - bilaterally Abdomen: soft, PEG in place Extremities: other - cachectic appearance Neurologic: other - limited eval as patient is not following commands Laboratory Tests Test 03/23/17 03:00 White Blood Count 11.0 K/UL (4.8-10.8) H Red Blood Count 3.79 M/UL (4.70-6.10) L Hemoglobin 10.9 G/DL (14.2-18.0) L Hematocrit 34.7 % (42.0-52.0) L Mean Corpuscular Volume 91 FL (80-99) Mean Corpuscular Hemoglobin 28.6 PG (27.0-31.0) Mean Corpuscular Hemoglobin Concent 31.4 G/DL (32.0-36.0) L Red Cell Distribution Width 13.5 % (11.6-14.8) Platelet Count 464 K/UL (150-450) H Mean Platelet Volume 6.2 FL (6.5-10.1) L Neutrophils (%) (Auto) 57.8 % (45.0-75.0) Lymphocytes (%) (Auto) 27.8 % (20.0-45.0) Monocytes (%) (Auto) 7.5 % (1.0-10.0) Eosinophils (%) (Auto) 6.1 % (0.0-3.0) H Basophils (%) (Auto) 0.9 % (0.0-2.0) Sodium Level 142 MMOL/L (136-145) Potassium Level 3.8 MMOL/L (3.5-5.1) Chloride Level 107 MMOL/L (98-107) Carbon Dioxide Level 28 MMOL/L (21-32) Anion Gap 7 mmol/L (5-15) Blood Urea Nitrogen 18 mg/dL (7-18) Creatinine 1.1 MG/DL (0.55-1.30) Estimat Glomerular Filtration Rate > 60 mL/min (>60) Glucose Level 92 MG/DL (74-106) Calcium Level 7.9 MG/DL (8.5-10.1) L Coccidioides Antibody (Comp Fix) Pending Cryptococcus Antigen Pending Current Medications Medications (Trade) Dose Ordered Sig/Ant Route PRN Reason Start Time Stop Time Status Last Admin Dose Admin Acetaminophen (Tylenol) 650 mg Q4H PRN ORAL Mild Pain/Temp > 100.5 03/20/17 20:45 04/03/17 08:44 03/22/17 21:18 Albuterol/ Ipratropium (Albuterol/ Ipratropium) 3 ml Q4H PRN HHN Shortness of Breath 03/20/17 21:00 03/25/17 16:59 Albuterol/ Ipratropium (Albuterol/ Ipratropium) 3 ml Q6HRT HHN 03/20/17 19:00 03/24/17 19:00 03/23/17 07:16 Artificial Tears (Akwa-Tears) 2 drop Q2H PRN BOTH EYES Dry Eyes 03/20/17 19:15 04/08/17 09:14 Aspirin (ASA) 81 mg DAILY ORAL 03/21/17 09:00 04/19/17 08:59 03/23/17 08:25 Atorvastatin Calcium (Lipitor) 40 mg BEDTIME ORAL 03/20/17 21:00 04/18/17 20:59 03/22/17 21:16 Carvedilol (Coreg) 3.125 mg EVERY 12 HOURS PEG 03/20/17 21:00 04/12/17 08:59 03/23/17 08:26 Chlorhexidine Gluconate (Lisa-Hex 2%) 1 applic DAILY@1999 TOPIC 03/20/17 20:00 04/08/17 19:59 03/22/17 21:18 Docusate Sodium (Colace) 100 mg BID GT 03/21/17 09:00 04/10/17 21:29 03/22/17 18:17 Influenza Virus Vaccine Quadrival (Flu Vaccine Quadrivalent) 0.5 ml ONCE ONCE IM 03/23/17 12:00 03/23/17 12:01 03/23/17 11:37 Lorazepam (Ativan 2mg/ml 1ml) 2 mg Q4H PRN IV For Anxiety 03/20/17 20:00 03/24/17 11:59 Morphine Sulfate (Morphine Sulfate) 2 mg Q4H PRN IVP Severe Pain (Pain Scale 7-10) 03/20/17 20:00 03/24/17 11:59 Pantoprazole (Protonix) 40 mg Q12HR IVP 03/20/17 21:00 04/03/17 20:59 03/23/17 08:26 Pneumococcal Polyvalent Vaccine (Pneumovax) 0.5 ml ONCE ONCE IM 03/23/17 12:00 03/23/17 12:01 03/23/17 11:35 Polyethylene Glycol (Miralax) 17 gm BEDTIME ORAL 03/20/17 21:00 04/10/17 21:29 Alise Polanco M.D. Mar 23, 2017 11:41
[2017-03-23 12:00] VITALS: BP 118/72
[2017-03-23] MEDS ORDERED: Pneumococcal Vaccine 25mcg/0.5ml IM ONE (12:00)
[2017-03-23] MEDS ORDERED: Flu Vaccine Quadrivalent 0.5ml IM ONE (12:00)
--- NOTE | 2017-03-23 12:03 | Nephrology Progress Note ---
Assessment/Plan Problem List: (1) Respiratory disorder with ventilator dependence (2) UTI (urinary tract infection) (3) Hypernatremia (4) Acute renal failure Assessment - Na wnl - Acute renal failure cr 1.1 to 2.4 to 2.1 to 1.9 to 1.5 now WNL - Chronic paranoid schizophrenia - Respiratory disorder with ventilator dependence - Healthcare associated bacterial pneumonia - UTI (urinary tract infection) - SIRS (systemic inflammatory response syndrome) - Alzheimer disease - Hypokalemia - Hypernatremia / due to water deficit improving with D5 resolving Plan plan: now trached stable from renal stand K supplement as needed Water NGT Pulm support Antibiotics monitor renal parameters per orders Subjective ROS Limited/Unobtainable: Yes Objective Objective Last 24 Hour Vital Signs Date Time Temp Pulse Resp B/P (MAP) Pulse Ox O2 Delivery O2 Flow Rate FiO2 03/23/17 12:00 35 03/23/17 10:40 84 16 35 03/23/17 09:28 81 30 35 03/23/17 08:26 95 122/73 03/23/17 08:00 88 03/23/17 08:00 98.6 95 22 122/73 99 Mechanical Ventilator 35 03/23/17 08:00 35 03/23/17 07:38 87 19 99 Mechanical Ventilator 35 03/23/17 07:19 88 25 97 Mechanical Ventilator 35 03/23/17 07:16 88 26 35 03/23/17 05:07 88 26 35 03/23/17 04:00 84 03/23/17 04:00 98.7 87 22 101/68 100 Mechanical Ventilator 35 03/23/17 04:00 35 03/23/17 03:03 88 21 35 03/23/17 01:11 86 17 100 Mechanical Ventilator 35 03/23/17 01:02 85 24 99 Mechanical Ventilator 35 03/23/17 01:02 85 24 35 03/23/17 01:02 35 03/23/17 00:00 84 03/23/17 00:00 35 03/23/17 00:00 98.6 82 26 100/60 95 Mechanical Ventilator 35 03/22/17 22:50 85 25 35 03/22/17 21:17 92 106/60 03/22/17 20:47 92 20 35 03/22/17 20:00 35 03/22/17 20:00 98.3 90 27 105/60 99 Mechanical Ventilator 35 03/22/17 20:00 88 03/22/17 19:13 89 16 99 Mechanical Ventilator 35 03/22/17 19:03 35 03/22/17 19:03 89 22 35 03/22/17 19:03 89 22 98 Mechanical Ventilator 35 03/22/17 16:50 79 20 35 03/22/17 16:00 35 03/22/17 16:00 82 03/22/17 16:00 97.8 82 18 106/60 99 Mechanical Ventilator 35 03/22/17 15:20 83 20 35 03/22/17 13:36 90 16 100 03/22/17 13:00 86 27 35 03/22/17 13:00 Mechanical Ventilator 35 03/22/17 13:00 86 20 99 Mechanical Ventilator 35 Intake and Output 03/22/17 03/23/17 19:00 07:00 Intake Total 20 ml Output Total 500 ml Balance -480 ml Tube Feeding 20 ml Output Urine Total 500 ml # Bowel Movements 2 Laboratory Tests 03/23/17 03:00: White Blood Count 11.0H, Red Blood Count 3.79L, Hemoglobin 10.9L, Hematocrit 34.7L, Mean Corpuscular Volume 91, Mean Corpuscular Hemoglobin 28.6, Mean Corpuscular Hemoglobin Concent 31.4L, Red Cell Distribution Width 13.5, Platelet Count 464H, Mean Platelet Volume 6.2L, Neutrophils (%) (Auto) 57.8, Lymphocytes (%) (Auto) 27.8, Monocytes (%) (Auto) 7.5, Eosinophils (%) (Auto) 6.1H, Basophils (%) (Auto) 0.9, Sodium Level 142, Potassium Level 3.8, Chloride Level 107, Carbon Dioxide Level 28, Anion Gap 7, Blood Urea Nitrogen 18, Creatinine 1.1, Estimat Glomerular Filtration Rate > 60, Glucose Level 92, Calcium Level 7.9L, Coccidioides Antibody (Comp Fix) [Pending], Cryptococcus Antigen [Pending] Height (Feet): 5 Height (Inches): 8.00 Weight (Pounds): 150 EENT: other - trached Respiratory/Chest: decreased breath sounds Abdomen: soft Objective no change CHACHA NUNES Mar 23, 2017 12:03
--- NOTE | 2017-03-23 12:50 | Cardiology Report ---
APPROVED REPORT EXAM: Two-dimensional and M-mode echocardiogram with Doppler and color Doppler. INDICATION Acute MT M-Mode DIMENSIONS Left Atrium (MM)3.3 (1.6-4.0cm) Aortic Root3.0 (2.0-3.7cm) Aortic Cusp Exc.2.4 (1.5-2.0cm) Technically difficult study. Patient on vent. Study quality precludes accurate assessment of regional wall motion. M-mode measurements of left ventricle not obtainable. Normal left ventricular chamber size, systolic function and wall motion to extent visualized. Left ventricular ejection fraction estimated to be grossly normal. No evidence of left ventricular hypertrophy. No evidence of pericardial effusion. All other cardiac chamber sizes are within normal limits. Mild focal aortic valve sclerosis with adequate cusp excursion. Mildly thickened mitral valve leaflets with normal excursion. Mild mitral annulus and aortic root calcification. Pulmonic valve not visualized. Normal tricuspid valve structure. IVC dilated at 2.0 cm without physiologic collapse suggestive of increased RA pressure. A color flow and spectral Doppler study was performed and revealed: Trace aortic regurgitation. Trace mitral regurgitation. Mitral diastolic velocities suggest mild left ventricular dysfunction (Grade I ). Mild tricuspid regurgitation. Tricuspid systolic velocities suggests peak right ventricular systolic pressure of 49 mmHg, consistent with moderate pulmonary hypertension. No pulmonic regurgitation present.
--- NOTE | 2017-03-23 14:17 | GI Progress Note ---
Assessment/Plan Problems: (1) Encounter for PEG (percutaneous endoscopic gastrostomy) ICD Codes: Z43.1 - Encounter for attention to gastrostomy SNOMED: 255824098, [id number] (2) Esophagitis ICD Codes: K20.9 - Esophagitis, unspecified SNOMED: 89993933 (3) Alzheimer disease ICD Codes: G30.9 - Alzheimer's disease, unspecified SNOMED: [id number] Qualifiers: Qualified Codes: G30.9 - Alzheimer's disease, unspecified; F02.80 - Dementia in other diseases classified elsewhere without behavioral disturbance Status: unchanged Status Narrative Discussed with Dr. Kaur. Assessment/Plan SUMMARY OF FINDINGS: 1. Status post successful PEG placement. 2. Atrophic gastritis. RECOMMENDATIONS: 1. Abdominal binder. 2. Elevate the head of the bed at all times. 3. G-tube flush. 4. G-tube care. start GTFs per RD fu labs Subjective Subjective limited Objective Last 24 Hour Vital Signs Date Time Temp Pulse Resp B/P (MAP) Pulse Ox O2 Delivery O2 Flow Rate FiO2 03/23/17 13:16 83 16 99 Mechanical Ventilator 35 03/23/17 13:11 82 16 35 03/23/17 13:10 82 16 98 Mechanical Ventilator 35 03/23/17 12:00 99.0 85 20 118/72 96 Mechanical Ventilator 35 03/23/17 12:00 84 03/23/17 12:00 35 03/23/17 10:40 84 16 35 03/23/17 09:28 81 30 35 03/23/17 08:26 95 122/73 03/23/17 08:00 88 03/23/17 08:00 98.6 95 22 122/73 99 Mechanical Ventilator 35 03/23/17 08:00 35 03/23/17 07:38 87 19 99 Mechanical Ventilator 35 03/23/17 07:19 88 25 97 Mechanical Ventilator 35 03/23/17 07:16 88 26 35 03/23/17 05:07 88 26 35 03/23/17 04:00 84 03/23/17 04:00 98.7 87 22 101/68 100 Mechanical Ventilator 35 03/23/17 04:00 35 03/23/17 03:03 88 21 35 03/23/17 01:11 86 17 100 Mechanical Ventilator 35 03/23/17 01:02 85 24 99 Mechanical Ventilator 35 03/23/17 01:02 85 24 35 03/23/17 01:02 35 03/23/17 00:00 84 03/23/17 00:00 35 03/23/17 00:00 98.6 82 26 100/60 95 Mechanical Ventilator 35 03/22/17 22:50 85 25 35 03/22/17 21:17 92 106/60 03/22/17 20:47 92 20 35 03/22/17 20:00 35 03/22/17 20:00 98.3 90 27 105/60 99 Mechanical Ventilator 35 03/22/17 20:00 88 03/22/17 19:13 89 16 99 Mechanical Ventilator 35 03/22/17 19:03 35 03/22/17 19:03 89 22 35 03/22/17 19:03 89 22 98 Mechanical Ventilator 35 03/22/17 16:50 79 20 35 03/22/17 16:00 35 03/22/17 16:00 82 03/22/17 16:00 97.8 82 18 106/60 99 Mechanical Ventilator 35 03/22/17 15:20 83 20 35 Intake and Output 03/22/17 03/23/17 19:00 07:00 Intake Total 20 ml Output Total 500 ml Balance -480 ml Tube Feeding 20 ml Output Urine Total 500 ml # Bowel Movements 2 Laboratory Tests Test 03/23/17 03:00 White Blood Count 11.0 K/UL (4.8-10.8) H Red Blood Count 3.79 M/UL (4.70-6.10) L Hemoglobin 10.9 G/DL (14.2-18.0) L Hematocrit 34.7 % (42.0-52.0) L Mean Corpuscular Volume 91 FL (80-99) Mean Corpuscular Hemoglobin 28.6 PG (27.0-31.0) Mean Corpuscular Hemoglobin Concent 31.4 G/DL (32.0-36.0) L Red Cell Distribution Width 13.5 % (11.6-14.8) Platelet Count 464 K/UL (150-450) H Mean Platelet Volume 6.2 FL (6.5-10.1) L Neutrophils (%) (Auto) 57.8 % (45.0-75.0) Lymphocytes (%) (Auto) 27.8 % (20.0-45.0) Monocytes (%) (Auto) 7.5 % (1.0-10.0) Eosinophils (%) (Auto) 6.1 % (0.0-3.0) H Basophils (%) (Auto) 0.9 % (0.0-2.0) Sodium Level 142 MMOL/L (136-145) Potassium Level 3.8 MMOL/L (3.5-5.1) Chloride Level 107 MMOL/L (98-107) Carbon Dioxide Level 28 MMOL/L (21-32) Anion Gap 7 mmol/L (5-15) Blood Urea Nitrogen 18 mg/dL (7-18) Creatinine 1.1 MG/DL (0.55-1.30) Estimat Glomerular Filtration Rate > 60 mL/min (>60) Glucose Level 92 MG/DL (74-106) Calcium Level 7.9 MG/DL (8.5-10.1) L Coccidioides Antibody (Comp Fix) Pending Cryptococcus Antigen Pending Height (Feet): 5 Height (Inches): 8.00 Weight (Pounds): 150 General Appearance: no apparent distress, alert Cardiovascular: normal rate Respiratory/Chest: normal breath sounds, no respiratory distress, other - mech vent Abdominal Exam: normal bowel sounds, non tender, soft, GT site - c/d/i Donna Melgar N.P. Mar 23, 2017 14:17
--- NOTE | 2017-03-23 14:23 | Diagnostic Imaging Report ---
Indication: Dyspnea Technique: XRAY Chest 1v Comparison: 03/19/2017 Findings: Tracheostomy is now present. Left PICC line and nasogastric tube are unchanged. The heart and lungs are stable without new infiltrates. Impression: Tracheostomy placement. Otherwise stable chest.
[2017-03-23 16:00] VITALS: BP 105/73
--- NOTE | 2017-03-23 16:48 | General Progress Note ---
Assessment/Plan Status: stable Assessment/Plan 1. VDRF 2. Sepsis. 2. Healthcare-associated pneumonia (?) 3. Acute hypoxemic respiratory failure. 4. Acute anemia. 5. Hypokalemia. 6. Hypernatremia. 7. Urinary tract infection-healthcare related. 8. Gastrointestinal and deep vein thrombosis prophylaxis. 9. Abnormal Troponin 10. Dysphagia PLAN: CURRENT MANAGEMENT Notes from cardiology, Nephrology, Pulmonary reviewed Poor Prognosis Active current ID management S/p trach and PEG placement Subjective ROS Limited/Unobtainable: Yes Allergies: Coded Allergies: No Known Allergies (Unverified , 10/20/16) Objective Last 24 Hour Vital Signs Date Time Temp Pulse Resp B/P (MAP) Pulse Ox O2 Delivery O2 Flow Rate FiO2 03/23/17 14:54 83 32 35 03/23/17 13:16 83 16 99 Mechanical Ventilator 35 03/23/17 13:11 82 16 35 03/23/17 13:10 82 16 98 Mechanical Ventilator 35 03/23/17 12:00 99.0 85 20 118/72 96 Mechanical Ventilator 35 03/23/17 12:00 84 03/23/17 12:00 35 03/23/17 10:40 84 16 35 03/23/17 09:28 81 30 35 03/23/17 08:26 95 122/73 03/23/17 08:00 88 03/23/17 08:00 98.6 95 22 122/73 99 Mechanical Ventilator 35 03/23/17 08:00 35 03/23/17 07:38 87 19 99 Mechanical Ventilator 35 03/23/17 07:19 88 25 97 Mechanical Ventilator 35 03/23/17 07:16 88 26 35 03/23/17 05:07 88 26 35 03/23/17 04:00 84 03/23/17 04:00 98.7 87 22 101/68 100 Mechanical Ventilator 35 03/23/17 04:00 35 03/23/17 03:03 88 21 35 03/23/17 01:11 86 17 100 Mechanical Ventilator 35 03/23/17 01:02 85 24 99 Mechanical Ventilator 35 03/23/17 01:02 85 24 35 03/23/17 01:02 35 03/23/17 00:00 84 03/23/17 00:00 35 03/23/17 00:00 98.6 82 26 100/60 95 Mechanical Ventilator 35 03/22/17 22:50 85 25 35 03/22/17 21:17 92 106/60 03/22/17 20:47 92 20 35 03/22/17 20:00 35 03/22/17 20:00 98.3 90 27 105/60 99 Mechanical Ventilator 35 03/22/17 20:00 88 03/22/17 19:13 89 16 99 Mechanical Ventilator 35 03/22/17 19:03 35 03/22/17 19:03 89 22 35 03/22/17 19:03 89 22 98 Mechanical Ventilator 35 03/22/17 16:50 79 20 35 Intake and Output 03/22/17 03/23/17 19:00 07:00 Intake Total 20 ml Output Total 500 ml Balance -480 ml Tube Feeding 20 ml Output Urine Total 500 ml # Bowel Movements 2 Laboratory Tests 03/23/17 03:00: White Blood Count 11.0H, Red Blood Count 3.79L, Hemoglobin 10.9L, Hematocrit 34.7L, Mean Corpuscular Volume 91, Mean Corpuscular Hemoglobin 28.6, Mean Corpuscular Hemoglobin Concent 31.4L, Red Cell Distribution Width 13.5, Platelet Count 464H, Mean Platelet Volume 6.2L, Neutrophils (%) (Auto) 57.8, Lymphocytes (%) (Auto) 27.8, Monocytes (%) (Auto) 7.5, Eosinophils (%) (Auto) 6.1H, Basophils (%) (Auto) 0.9, Sodium Level 142, Potassium Level 3.8, Chloride Level 107, Carbon Dioxide Level 28, Anion Gap 7, Blood Urea Nitrogen 18, Creatinine 1.1, Estimat Glomerular Filtration Rate > 60, Glucose Level 92, Calcium Level 7.9L, Coccidioides Antibody (Comp Fix) [Pending], Cryptococcus Antigen [Pending] Height (Feet): 5 Height (Inches): 8.00 Weight (Pounds): 150 General Appearance: no apparent distress EENT: other - Limited eval. as patient is not follwoing commands Neck: supple Cardiovascular: normal rate Respiratory/Chest: rhonchi - bilaterally Abdomen: soft, other - peg in place Extremities: other - Limited eval. as patient is not follwoing commands Neurologic: other - Limited eval. as patient is not follwoing commands Objective comfortable. entubated. limited eval. as patient not following commands Colton Charles MD Mar 23, 2017 16:48
[2017-03-23] MEDS ORDERED: NS 275ml ONE ×2 (17:46→19:00)
[2017-03-23] MEDS ORDERED: Tubing IV Secondary IV ONE ×2 (17:46)
[2017-03-23] MEDS ORDERED: NS 500ML ONE ×2 (17:46→19:00)
--- NOTE | 2017-03-23 22:33 | General Progress Note ---
Assessment/Plan Status: stable Assessment/Plan Assessment/Plan #. Leukocytosis 2/2 Sepsis. ID following, on abx --> has resolved --> Patient to continue antibiotics as outpatient #. Thrombocytosis likely reactive process, stable #. Anemia of chronic disease. --> Hgb goal above 7. Transfuse as needed, work up has been reviewed --> Has been stable. Transfusion not needed today. #. Respiratory failure to proceed with trach #. COPD #. Hypokalemia. #. Hypernatremia. Subjective Date patient seen: Mar 23, 2017 Constitutional: Denies: no symptoms, chills, diaphoresis, fever, malaise, weakness, other HEENT: Denies: no symptoms, eye pain, blurred vision, tearing, double vision, ear pain, ear discharge, nose pain, nose congestion, throat pain, throat swelling, mouth pain, mouth swelling, other Cardiovascular: Denies: no symptoms, chest pain, edema, irregular heart rate, lightheadedness, palpitations, syncope, other Respiratory: Denies: no symptoms, cough, orthopnea, shortness of breath, SOB with excertion, SOB at rest, sputum, stridor, wheezing, other Gastrointestinal/Abdominal: Denies: no symptoms, abdomen distended, abdominal pain, black stools, tarry stools, blood in stool, constipated, diarrhea, difficulty swallowing, nausea, poor appetite, poor fluid intake, rectal bleeding , vomiting, other Genitourinary: Denies: no symptoms, burning, discharge, frequency, flank pain, hematuria, incontinence, pain, urgency, other Hematologic/Lymphatic: Reports: anemia Allergies: Coded Allergies: No Known Allergies (Unverified , 10/20/16) Subjective Afebrile. Not in respiratory distress. Patient is pending discharge. Objective Last 24 Hour Vital Signs Date Time Temp Pulse Resp B/P (MAP) Pulse Ox O2 Delivery O2 Flow Rate FiO2 03/23/17 17:02 86 28 35 03/23/17 16:00 93 03/23/17 16:00 98.7 95 27 105/73 99 Mechanical Ventilator 35 03/23/17 16:00 35 03/23/17 14:54 83 32 35 03/23/17 13:16 83 16 99 Mechanical Ventilator 35 03/23/17 13:11 82 16 35 03/23/17 13:10 82 16 98 Mechanical Ventilator 35 03/23/17 12:00 99.0 85 20 118/72 96 Mechanical Ventilator 35 03/23/17 12:00 84 03/23/17 12:00 35 03/23/17 10:40 84 16 35 03/23/17 09:28 81 30 35 03/23/17 08:26 95 122/73 03/23/17 08:00 88 03/23/17 08:00 98.6 95 22 122/73 99 Mechanical Ventilator 35 03/23/17 08:00 35 03/23/17 07:38 87 19 99 Mechanical Ventilator 35 03/23/17 07:19 88 25 97 Mechanical Ventilator 35 03/23/17 07:16 88 26 35 03/23/17 05:07 88 26 35 03/23/17 04:00 84 03/23/17 04:00 98.7 87 22 101/68 100 Mechanical Ventilator 35 03/23/17 04:00 35 03/23/17 03:03 88 21 35 03/23/17 01:11 86 17 100 Mechanical Ventilator 35 03/23/17 01:02 85 24 99 Mechanical Ventilator 35 03/23/17 01:02 85 24 35 03/23/17 01:02 35 03/23/17 00:00 84 03/23/17 00:00 35 03/23/17 00:00 98.6 82 26 100/60 95 Mechanical Ventilator 35 03/22/17 22:50 85 25 35 Intake and Output 03/22/17 03/23/17 19:00 07:00 Intake Total 20 ml 85 ml Output Total 500 ml Balance -480 ml 85 ml Free Water 30 ml Tube Feeding 20 ml 55 ml Output Urine Total 500 ml # Bowel Movements 2 Laboratory Tests 03/23/17 03:00: White Blood Count 11.0H, Red Blood Count 3.79L, Hemoglobin 10.9L, Hematocrit 34.7L, Mean Corpuscular Volume 91, Mean Corpuscular Hemoglobin 28.6, Mean Corpuscular Hemoglobin Concent 31.4L, Red Cell Distribution Width 13.5, Platelet Count 464H, Mean Platelet Volume 6.2L, Neutrophils (%) (Auto) 57.8, Lymphocytes (%) (Auto) 27.8, Monocytes (%) (Auto) 7.5, Eosinophils (%) (Auto) 6.1H, Basophils (%) (Auto) 0.9, Sodium Level 142, Potassium Level 3.8, Chloride Level 107, Carbon Dioxide Level 28, Anion Gap 7, Blood Urea Nitrogen 18, Creatinine 1.1, Estimat Glomerular Filtration Rate > 60, Glucose Level 92, Calcium Level 7.9L, Coccidioides Antibody (Comp Fix) [Pending], Cryptococcus Antigen [Pending] Height (Feet): 5 Height (Inches): 8.00 Weight (Pounds): 150 General Appearance: no apparent distress EENT: normal ENT inspection Cardiovascular: normal rate, regular rhythm Respiratory/Chest: lungs clear, normal breath sounds Abdomen: normal bowel sounds, non tender, soft Justin Anthony Mar 23, 2017 22:33
--- NOTE | 2017-03-26 17:10 | Discharge Summary ---
Discharge Summary Hospital Course Date of Admission Mar 03, 2017 at 20:30 Date of Discharge Mar 23, 2017 at 19:01 Admitting Diagnosis SOB HPI [place] Audra Maravilla is a 72 year old male who was admitted on Mar 03, 2017 at 20:30 for Shortness Of Breath Hospital Course [id number] Discharge Discharge Disposition Patient was discharged to SNF/Subacute Facility(03) Discharge Diagnoses: Lilliana Cummings NP Mar 26, 2017 17:10
--- NOTE | 2017-03-27 01:45 | Discharge Summary 2 SIG ---
DATE OF ADMISSION: 03/03/2017 DATE OF DISCHARGE: 03/23/2017 CONSULTANTS: 1. Trent Livingston M.D. 2. Tr Kaur M.D. 3. Alise Polanco M.D. 4. Alex Barrientos M.D. 5. Justin Anthony M.D. BRIEF HOSPITAL COURSE: The patient is a 72-year-old male who presented to ED complaining of shortness of breath. He is a senior living resident. Baseline was nonverbal. He has history of hypertension, GI bleed, dementia schizophrenia. On evaluation at ED, initial hemoglobin was 4.9, sodium was 167, potassium was 2.2. Chest x-ray showed right elevated hemidiaphragm. EKG was in sinus tachycardia. He had poor IV access and a right femoral central line was inserted. He was given IV hydration, IV potassium, and IV calcium. He was then admitted to ICU. On arrival to ICU, the patient was in respiratory distress and had to be orally intubated. He was febrile, temperature of 101. He was started on IV hydration and was placed on NPO. Creatinine was rising. He was started on IV vancomycin and Zosyn. Troponin was elevated. EKG did not show any ST changes. He was given antiplatelet therapy with aspirin. NG tube was inserted. He was given free water replacement. The patient had thrombocytopenia and anemia. He continued to have persistent leukocytosis. Central line was discontinued and was inserted a PICC line. Sputum culture was growing E. coli ESBL. Blood culture with Aerococcus. He was started on weaning protocol. Venous duplex of lower extremity was negative for DVT. He had an echocardiogram that was technically difficult. Left ventricular ejection fraction estimated to be grossly normal. RVSP 49 consistent with moderate pulmonary hypertension. There was trace aortic regurgitation, trace mitral regurgitation, and mild tricuspid regurgitation. Septic shock resolved. He was not able to be weaned off ventilator support. He had elevated inflammatory markers, and repeat chest x-ray showed new pulmonary infiltrates. Antibiotics were adjusted. He had a chest, abdominal, and pelvic CT done that showed right upper lobe, right lower lobe, and left lower lobe atelectasis and consolidation with small left pleural effusion. There was no acute abdominal process. He was continued on Coreg and aspirin. Bioethics Committee was called. He continued to fail weaning protocol. On 03/19/2017, he underwent tracheostomy placement. On 03/22/2017, he underwent EGD with PEG tube placement. He was then started on tube feedings. During his hospital stay, he was given 14 days of meropenem, 10 days of vancomycin, and 4 days of Zosyn. He was then observed off antibiotic treatment. He was then discharged to [facility]. FINAL DIAGNOSES: 1. Acute respiratory failure requiring tracheostomy. 2. Septic shock, resolved. 3. Bacteremia with Aerococcus. 4. Pneumonia with Escherichia coli extended-spectrum beta-lactamase. 5. Urinary tract infection. 6. Acute renal failure with possible acute tubular necrosis. 7. Dehydration. 8. Hypernatremia. 9. Hypokalemia. 10. Hypophosphatemia. 11. Chronic obstructive pulmonary disease. 12. Alzheimer's dementia. 13. Severe protein-calorie malnutrition. 14. Moderate pulmonary hypertension. 15. Thrombocytopenia. 16. Dysphagia, status post percutaneous endoscopic gastrostomy tube placement. 17. Abnormal troponin, possible acute Non-ST segment elevation myocardial infarction versus troponin leak. 18. Chronic paranoid schizophrenia. 19. Healthcare-associated pneumonia. 20. Elevated inflammatory markers. 21. Osteoarthritis. 22. Gastroesophageal reflux disease. 23. History of Helicobacter pylori in the past. DISPOSITION: The patient was discharged to [facility]. DISCHARGE MEDICATIONS: Refer to medication list. Rocio Uriarte M.D. I have been assigned to dictate discharge summary on this account and I was not involved in the patient's management. Lilliana Cummings N.P. DR: LADI JOB#: [id number] CC: LESA
== END 2017-03-23 19:01 | DRG 4 ==
LOC: EDBD 19:21 → EMR 19:50 → ICU 20:30 → EDBEDREQSVC 21:29 → EDBEDREQ 21:29 → EDBEDREQSVC 22:56 → EDBEDREQ 22:56 → 2W 03-19 23:44
PROC: 06HM33Z Insertion of Infusion Device into Right Femoral Vein, Percutaneous Approach (ICD-10-PCS; 2017-03-03)
PROC: 5A1955Z Respiratory Ventilation, Greater than 96 Consecutive Hours (ICD-10-PCS; principal; 2017-03-04)
PROC: 0BH17EZ Insertion of Endotracheal Airway into Trachea, Via Natural or Artificial Opening (ICD-10-PCS; principal; 2017-03-04)
PROC: B548ZZA Ultrasonography of Superior Vena Cava, Guidance (ICD-10-PCS; 2017-03-09)
PROC: 02HV33Z Insertion of Infusion Device into Superior Vena Cava, Percutaneous Approach (ICD-10-PCS; 2017-03-09)
PROC: 0B113F4 Bypass Trachea to Cutaneous with Tracheostomy Device, Percutaneous Approach (ICD-10-PCS; 2017-03-19)
PROC: 0DH63UZ Insertion of Feeding Device into Stomach, Percutaneous Approach (ICD-10-PCS; 2017-03-22)
DX: A41.9 Sepsis, unspecified organism (principal); R65.21 Severe sepsis with septic shock; I21.4 Non-ST elevation (NSTEMI) myocardial infarction; N17.0 Acute kidney failure with tubular necrosis; E43 Unspecified severe protein-calorie malnutrition; J15.5 Pneumonia due to Escherichia coli; E87.0 Hyperosmolality and hypernatremia; R13.10 Dysphagia, unspecified; M62.82 Rhabdomyolysis; J44.0 Chronic obstructive pulmonary disease with (acute) lower respiratory infection; J96.01 Acute respiratory failure with hypoxia; N39.0 Urinary tract infection, site not specified; F20.0 Paranoid schizophrenia; Z99.11 Dependence on respirator [ventilator] status; E87.8 Other disorders of electrolyte and fluid balance, not elsewhere classified; G30.9 Alzheimer's disease, unspecified; F02.80 Dementia in other diseases classified elsewhere, unspecified severity, without behavioral disturbance, psychotic disturbance, mood disturbance, and anxiety; E83.39 Other disorders of phosphorus metabolism; E86.0 Dehydration; E87.6 Hypokalemia; E83.51 Hypocalcemia; Z68.22 Body mass index [BMI] 22.0-22.9, adult; K20.9 Esophagitis, unspecified; K29.40 Chronic atrophic gastritis without bleeding; I27.20 Pulmonary hypertension, unspecified; D69.6 Thrombocytopenia, unspecified; Z23 Encounter for immunization
CPT/HCPCS: 36415; 36569; 36600; 71010; 71045; 71260; 74000; 74018; 74177; 76705; 76937; 80048; 80053; 80076; 80202; 81003; 82248; 82550; 82553; 82728; 82803; 82962; 82977; 83036; 83540; 83550; 83605; 83735; 83880; 84100; 84443; 84484; 84550; 85007; 85025; 85610; 85651; 85730; 86140; 86635; 86710; 86850; 86900; 86901; 87040; 87070; 87081; 87086; 87181; 87205; 87449; 90630; 90732; 93005; 93306; 93970; 94002; 94003; 94150; 94640; 94664; J2250; J2765; J7620; J8499

== ENCOUNTER 2017-05-29 22:23 | Inpatient (IN) | payer MEDICARE, OTHER ==
[~2017-05-29] VITALS: Ht 167.6 cm; Wt 67.6 kg
[2017-05-29] MEDS ORDERED: NS 1000ml 1,900 ML IVLG ONE (22:45)
[2017-05-29 22:57] LABS: BASOPHILS % (AUTO) 0.8 % (0.0-2.0); EOSINOPHILS % (AUTO) 1.5 % (0.0-3.0); HEMATOCRIT 36.7 % (37.0-47.0); HEMOGLOBIN 11.9 G/DL (12.0-16.0); LYMPHOCYTES % (AUTO) 15.6 % (20.0-45.0); MEAN CORPUSCULAR VOLUME 85 FL (80-99); MONOCYTES % (AUTO) 9.3 % (1.0-10.0); NEUTROPHILS % (AUTO) 72.7 % (45.0-75.0); PLATELET COUNT 583 K/UL (150-450); RED CELL DISTRIBUTION WIDTH 14.2 % (11.6-14.8)
[2017-05-29 23:05] LABS: ANION GAP 7 mmol/L (5-15); BLOOD UREA NITROGEN 30 mg/dL (7-18); CALCIUM 9.2 MG/DL (8.5-10.1); CARBON DIOXIDE 29 MMOL/L (21-32); CHLORIDE 103 MMOL/L (98-107); CREATININE 1.1 MG/DL (0.55-1.30); POTASSIUM 4.1 MMOL/L (3.5-5.1); SODIUM 139 MMOL/L (136-145)
[2017-05-29 23:13] LABS: APPEARANCE,URINE CLOUDY; BILIRUBIN, URINE NEGATIVE (NEGATIVE); COLOR,URINE AMBER; GLUCOSE, URINE (UA) NEGATIVE (NEGATIVE); KETONES,URINE NEGATIVE (NEGATIVE); LEUKOCYTE ESTERASE ,URINE 3+ (NEGATIVE); NITRITE,URINE NEGATIVE (NEGATIVE); PH,URINE 7 (4.5-8.0); PROTEIN,URINE 2+ (NEGATIVE); UROBILINOGEN,URINE 4 MG/DL (0.0-1.0)
[2017-05-29 23:19] LABS: ALANINE AMINOTRANSFERASE 25 U/L (12-78); ALBUMIN 2.8 G/DL (3.4-5.0); ALBUMIN/GLOBULIN RATIO 0.5 (1.0-2.7); ALKALINE PHOSPHATASE 114 U/L (46-116); ASPARTATE AMINO TRANSFERASE 28 U/L (15-37); BILIRUBIN,TOTAL 0.4 MG/DL (0.2-1.0); CKMB < 0.5 NG/ML (0.0-3.6); CREATINE KINASE 85 U/L (26-308)
[2017-05-29 23:22] LABS: INR 1.1 (0.9-1.1)
[2017-05-29] MEDS ORDERED: Cefepime HCl 1 GM in D5W 55 ML IVPB ONE (23:45)
[2017-05-29 23:58] VITALS: BP 126/91
[2017-05-30] MEDS ORDERED: Cefepime 1gm vial ONE (00:07)
--- NOTE | 2017-05-30 00:11 | Emergency Room Report ---
History of Present Illness General Chief Complaint: Vomiting Source: Medical Record, EMS Present Illness HPI This is a 72-year-old male with a history of respiratory failure and currently on day ventilator via tracheostomy. Also with a feeding tube. Patient presents with chief complaint of vomiting. Onset today. 2 episode. None bloody none bilious. No diarrhea. No fever. History is from assisted note since patient cannot give a history. Allergies: Coded Allergies: No Known Allergies (Unverified , 05/29/17) Patient History Past Medical History: see triage record, old chart reviewed Past Surgical History: other Pertinent Family History: none Social History: Denies: smoking Last Menstrual Period: NA Now: No Immunizations: other Reviewed Nursing Documentation: PMH: Agreed, PSxH: Agreed Review of Systems Eye: Denies: eye pain, blurred vision ENT: Denies: ear pain, nose congestion, throat swelling Respiratory: Denies: cough, shortness of breath Cardiovascular: Denies: chest pain, palpitations Gastrointestinal: Reports: nausea, vomiting, Denies: abdominal pain, diarrhea Musculoskeletal: Denies: back pain, joint pain Skin: Denies: rash Neurological: Denies: headache, numbness Endocrine: Denies: increased thirst, increased urine Hematologic/Lymphatic: Denies: easy bruising All Other Systems: negative except mentioned in HPI Physical Exam Vital Signs Date Time Temp Pulse Resp B/P (MAP) Pulse Ox O2 Delivery O2 Flow Rate FiO2 05/29/17 22:13 99.3 110 26 139/81 98 Trach Collar 4.0 99.3 05/29/17 22:25 35 vitals with temperature rectally. Sp02 EP Interpretation: reviewed, normal General Appearance: no apparent distress, alert, Chronically Ill Head: normocephalic, atraumatic Eyes: bilateral eye PERRL, bilateral eye EOMI ENT: hearing grossly normal, normal pharynx Neck: full range of motion, supple, no meningismus, other - tracheostomy intact Respiratory: chest non-tender, lungs clear, normal breath sounds Cardiovascular #1: regular rate, rhythm, no murmur Gastrointestinal: normal bowel sounds, non tender, no mass, no organomegaly, no bruit, non-distended Musculoskeletal: back normal, other - contracted Psychiatric: mood/affect normal Skin: warm/dry Medical Decision Making Diagnostic Impression: Primary Impression: Sepsis Qualified Codes: A41.9 - Sepsis, unspecified organism Additional Impressions: UTI (urinary tract infection) Qualified Codes: N30.00 - Acute cystitis without hematuria Proteinuria Qualified Codes: R80.9 - Proteinuria, unspecified Acute prerenal azotemia ER Course Patient presents with sepsis from UTI. He is much improved after IV fluid. No evidence of pneumonia, ACS, PE, dissection to name a few. We'll admit for IV antibiotics. Sepsis reevaluation Time: 12 9 AM Vital signs: Temperature 98, heart rate 94, blood pressure 120/97, respiratory rate 20, oxygenation 100% Mental status: More alert Cardiovascular: Regular Lungs: Clear Abdomen: Soft Extremity: No edema Skin: No mottling Lab Results Impression labs with leukocytosis EKG Diagnostic Results Rate: tachycardiac Rhythm: NSR ST Segments: no acute changes Rhythm Strip Diag. Results Rhythm Strip Time: 00:11 EP Interpretation: yes Rate: 90 Rhythm: NSR, no PVC's, no ectopy Chest X-Ray Diagnostic Results Chest X-Ray Diagnostic Results : Chest X-Ray Ordered: Yes # of Views/Limited/Complete: 1 View Indication: Shortness of Breath EP Interpretation: Yes Interpretation: no consolidation, no effusion, no pneumothorax, no acute cardiopulmonary disease Impression: No acute disease Electronically Signed by: Nathan Melgar MD Last Vital Signs Date Time Temp Pulse Resp B/P (MAP) Pulse Ox O2 Delivery O2 Flow Rate FiO2 05/29/17 23:58 98.5 92 16 126/91 100 Mechanical Ventilator 35 98.5 05/29/17 22:13 4.0 Status: improved Disposition: ADMITTED INPATIENT Condition: Serious NATHAN MELGAR M.D. May 30, 2017 00:11
[2017-05-30] MEDS ORDERED: FLEET ENEMA133 ML RECTAL (01:08)
[2017-05-30] MEDS ORDERED: DULCOLAX10 MG RC (01:08)
[2017-05-30] MEDS ORDERED: CRANBERRY450 M5 GT (01:08)
[2017-05-30] MEDS ORDERED: COREG3.125 MG GT (01:08)
[2017-05-30] MEDS ORDERED: DOCUSATE SODIU100 MG GT (01:08)
[2017-05-30] MEDS ORDERED: MULTI-DELYN237 ML GT (01:08)
[2017-05-30] MEDS ORDERED: ATORVASTATIN CA40 MG GT (01:08)
[2017-05-30] MEDS ORDERED: ASPIRIN81 MG ORAL (01:08)
[2017-05-30] MEDS ORDERED: VITAMIN C500 MG/11 GT (01:08)
[2017-05-30] MEDS ORDERED: MILK OF MA400 MG/51 ORAL (01:08)
[2017-05-30] MEDS ORDERED: OMEPRAZOLE40 M1 ORAL (01:08)
[2017-05-30] MEDS ORDERED: ACETAMINOP160 MG/5 M ORAL (01:08)
[2017-05-30 01:15] VITALS: BP 106/64
[2017-05-30 08:00] VITALS: BP 130/74
[2017-05-30] MEDS ORDERED: Miralax 17gm pkt ORAL PRN (08:30)
[2017-05-30] MEDS ORDERED: LORazepam Inj 2mg/ml 1ml IV PRN (08:30)
[2017-05-30] MEDS ORDERED: Morphine Sulfate 4mg/ml Inj IVP PRN (08:30)
[2017-05-30] MEDS ORDERED: Albuterol/Ipratropium 3ml neb HHN PRN (08:30)
[2017-05-30] MEDS: Vitamin A&D Oint 2oz Tube TOPIC SCH ×2 (10:46→23:01)
[2017-05-30] MEDS: Pantoprazole Inj IV SCH (10:46)
[2017-05-30] MEDS: Vancomycin 1 GM in D5W 275 ML IVPB SCH (10:46)
[2017-05-30] MEDS: Heparin 5000 units/ml inj SUBQ SCH ×2 (10:48→20:51)
--- NOTE | 2017-05-30 11:56 | History and Physical ---
History of Present Illness General Reason for Hospitalization: Vomiting Present Illness HPI 72-year-old male with a history of respiratory failure and currently on ventilator via tracheostomy, feeding tube presentsed to ER by paramedics with chief complaint of vomiting for one day. He was diagnosed to have sepsis , pneumonia and worsening respiratory failure and admitted to [facility] for further evaluation. Allergies: Coded Allergies: No Known Allergies (Unverified , 10/20/16) Medication History Scheduled Al Hydroxide/mg Hydroxide (Mag-Al Plus Suspension), 30 ML PO Q6HR, (Reported) Ascorbic Acid* (Vitamin C*), 500 MG ORAL DAILY, (Reported) Aspirin* (Aspir 81*), 81 MG ORAL DAILY, (Reported) Aspirin* (Aspirin*), 81 MG ORAL DAILY, (Reported) Atorvastatin Calcium* (Atorvastatin Calcium*), 40 MG GT BEDTIME, (Reported) Carvedilol (Coreg), 3.125 MG GT EVERY 12 HOURS, (Reported) Cranberry Fruit (Cranberry), Unknown Dose GT DAILY, (Reported) Docusate Sodium* (Docusate Sodium*), 100 MG ORAL DAILY, (Reported) Docusate Sodium* (Docusate Sodium*), 100 MG GT DAILY, (Reported) Magnesium Hydroxide* (Milk Of Magnesia*), 30 ML ORAL DAILY, (Reported) Multivitamin Liquid* (Multi-Delyn*), 15 ML GT DAILY, (Reported) Multivitamin With Minerals (Multivitamins With Minerals*), 1 TAB ORAL DAILY, ( Reported) Na Phos,M-B/Na Phos,Di-Ba* (Fleet Enema*), 133 ML RECTAL DAILY, (Reported) Nitroglycerin (Nitroglycerin), 0.4 MG SL Q5M x3 DOSES PRN, (Reported) Omeprazole (Omeprazole), 40 MG ORAL DAILY, (Reported) Omeprazole (Omeprazole), 40 MG ORAL DAILY, (Reported) Sucralfate* (Carafate*), 1 GM ORAL FOUR TIMES A DAY, (Reported) Sucralfate* (Carafate*), 1 GM ORAL FOUR TIMES A DAY, (Reported) Vit C/Ascorbate Ca/Ascorb Sod (Vitamin C 500 Mg/15 Ml Liquid), Unknown Dose GT DAILY, (Reported) Scheduled PRN Acetaminophen (Tylenol), 500 MG ORAL Q4HR PRN for Prn Pain/Headache/Temp > 101, (Reported) Acetaminophen* (Acetaminophen 325MG Tablet*), 650 MG ORAL Q4H PRN for Mild Pain/ Temp > 100.5, (Reported) Al Hydroxide/mg Hydroxide (Mag-Al Plus Suspension), 30 ML PO Q6HR PRN for Constipation, (Reported) Bisacodyl (Dulcolax), 10 MG RC PRN PRN for Constipation, (Reported) Diphenhydramine Hcl* (Diphenhydramine Hcl*), 25 MG ORAL Q6H PRN for Itching, ( Reported) Ondansetron* (Zofran*), 4 MG ORAL Q6H PRN for Nausea & Vomiting, (Reported) Ondansetron* (Zofran*), 4 MG ORAL Q6H PRN for Nausea & Vomiting, (Reported) Polyethylene Glycol 3350* (Miralax*), 17 GM ORAL DAILY PRN for Constipation, ( Reported) Temazepam* (Temazepam*), 15 MG ORAL BEDTIME PRN for Insomnia, (Reported) Miscellaneous Medications Acetaminophen 160MG/5ML* (Acetaminophen*), Unknown Dose ORAL, (Reported) Patient History Healthcare decision maker Resuscitation status Advanced Directive on File Yes Past Medical/Surgical History Past Medical/Surgical History: (1) Feeding by G-tube (2) Alzheimer disease (3) COPD (chronic obstructive pulmonary disease) Review of Systems All Other Systems: negative except mentioned in HPI Physical Exam General Appearance: WD/WN Lines, tubes and drains: peripheral HEENT: normocephalic, atraumatic Neck: non-tender, normal alignment Respiratory/Chest: chest wall non-tender, lungs clear, normal breath sounds Breasts: no masses Cardiovascular/Chest: normal peripheral pulses, normal rate Abdomen: normal bowel sounds, non tender Genitourinary/Rectal: normal genital exam, normal rectal exam Extremities: normal range of motion, non-tender Neurologic: courtroom clerk II-XII grossly normal Last 24 Hour Vital Signs Date Time Temp Pulse Resp B/P (MAP) Pulse Ox O2 Delivery O2 Flow Rate FiO2 05/30/17 10:48 61 28 35 05/30/17 08:36 98 21 35 05/30/17 08:00 35 05/30/17 08:00 97.6 106 20 130/74 95 Mechanical Ventilator 35 97.6 05/30/17 07:56 85 3/18/18 07:47 97 20 35 05/30/17 05:33 98 23 35 05/30/17 04:00 35 05/30/17 03:47 98 23 35 05/30/17 03:36 87 05/30/17 02:30 98.5 98 23 106/64 96 Mechanical Ventilator 35 05/30/17 01:57 93 23 35 05/30/17 01:15 98 16 106/64 96 Mechanical Ventilator 35 05/30/17 00:05 92 16 35 05/29/17 23:58 98.5 92 16 126/91 100 Mechanical Ventilator 35 98.5 05/29/17 22:25 35 05/29/17 22:13 99.3 110 26 139/81 98 Trach Collar 4.0 99.3 Intake and Output 05/29/17 05/30/17 19:00 07:00 Intake Total 2015 ml Output Total 200 ml Balance 1815 ml Intake Free Water 60 ml IV Total 1955 ml Output Urine Total 200 ml # Voids 2 Laboratory Tests Test 05/29/17 22:30 05/29/17 22:50 White Blood Count 17.0 K/UL (4.8-10.8) H Red Blood Count 4.30 M/UL (4.20-5.40) Hemoglobin 11.9 G/DL (12.0-16.0) L Hematocrit 36.7 % (37.0-47.0) L Mean Corpuscular Volume 85 FL (80-99) Mean Corpuscular Hemoglobin 27.6 PG (27.0-31.0) Mean Corpuscular Hemoglobin Concent 32.4 G/DL (32.0-36.0) Red Cell Distribution Width 14.2 % (11.6-14.8) Platelet Count 583 K/UL (150-450) H Mean Platelet Volume 6.1 FL (6.5-10.1) L Neutrophils (%) (Auto) 72.7 % (45.0-75.0) Lymphocytes (%) (Auto) 15.6 % (20.0-45.0) L Monocytes (%) (Auto) 9.3 % (1.0-10.0) Eosinophils (%) (Auto) 1.5 % (0.0-3.0) Basophils (%) (Auto) 0.8 % (0.0-2.0) Prothrombin Time 11.4 SEC (9.30-11.50) Prothromb Time International Ratio 1.1 (0.9-1.1) Activated Partial Thromboplast Time 25 SEC (23-33) Sodium Level 139 MMOL/L (136-145) Potassium Level 4.1 MMOL/L (3.5-5.1) Chloride Level 103 MMOL/L (98-107) Carbon Dioxide Level 29 MMOL/L (21-32) Anion Gap 7 mmol/L (5-15) Blood Urea Nitrogen 30 mg/dL (7-18) H Creatinine 1.1 MG/DL (0.55-1.30) Estimat Glomerular Filtration Rate 49.1 mL/min (>60) Glucose Level 122 MG/DL (74-106) H Lactic Acid Level 1.60 mmol/L (0.66-2.22) Calcium Level 9.2 MG/DL (8.5-10.1) Total Bilirubin 0.4 MG/DL (0.2-1.0) Aspartate Amino Transf (AST/SGOT) 28 U/L (15-37) Alanine Aminotransferase (ALT/SGPT) 25 U/L (12-78) Alkaline Phosphatase 114 U/L (46-116) Total Creatine Kinase 85 U/L (26-308) Creatine Kinase MB < 0.5 NG/ML (0.0-3.6) Creatine Kinase MB Relative Index 0.5 Troponin I 0.000 ng/mL (0.000-0.056) Total Protein 8.6 G/DL (6.4-8.2) H Albumin 2.8 G/DL (3.4-5.0) L Globulin 5.8 g/dL Albumin/Globulin Ratio 0.5 (1.0-2.7) L Urine Color Mariann Urine Appearance Cloudy Urine pH 7 (4.5-8.0) Urine Specific Wagoner 1.010 (1.005-1.035) Urine Protein 2+ (NEGATIVE) H Urine Glucose (UA) Negative (NEGATIVE) Urine Ketones Negative (NEGATIVE) Urine Occult Blood 2+ (NEGATIVE) H Urine Nitrite Negative (NEGATIVE) Urine Bilirubin Negative (NEGATIVE) Urine Ictotest Negative Urine Urobilinogen 4 MG/DL (0.0-1.0) H Urine Leukocyte Esterase 3+ (NEGATIVE) H Urine RBC 2-4 /HPF (0 - 2) H Urine WBC 20-30 /HPF (0 - 2) H Urine Squamous Epithelial Cells Few /LPF (NONE/OCC) Urine Bacteria Many /HPF (NONE) H Urine Mucus Few /LPF (NONE/OCC) H Height (Feet): 5 Height (Inches): 6.00 Weight (Pounds): 140 Medications Current Medications Medications (Trade) Dose Ordered Sig/Ant Route PRN Reason Start Time Stop Time Status Last Admin Dose Admin Acetaminophen (Tylenol) 650 mg Q4H PRN ORAL FEVER (temp>100.5F) 05/30/17 08:30 06/29/17 08:29 Albuterol/ Ipratropium (Albuterol/ Ipratropium) 3 ml Q4H PRN HHN Shortness of Breath 05/30/17 08:30 06/04/17 08:29 Dextrose (Dextrose 50%) STAT PRN IV Hypoglycemia 05/30/17 08:30 06/29/17 08:29 Heparin Sodium (Porcine) (Heparin 5000 units/ml) 5,000 units EVERY 12 HOURS SUBQ 05/30/17 10:00 06/29/17 09:59 05/30/17 10:48 Lorazepam (Ativan 2mg/ml 1ml) 2 mg Q2H PRN IV For Anxiety 05/30/17 08:30 06/06/17 08:29 Morphine Sulfate (Morphine Sulfate) 4 mg Q4H PRN IVP Severe Pain (Pain Scale 7-10) 05/30/17 08:30 06/06/17 08:29 Ondansetron HCl (Zofran) 4 mg Q6H PRN IVP Nausea & Vomiting 05/30/17 08:30 06/29/17 08:29 Pantoprazole (Protonix) 40 mg DAILY IV 05/30/17 09:00 06/29/17 08:59 05/30/17 10:46 Polyethylene Glycol (Miralax) 17 gm DAILYPRN PRN ORAL Constipation 05/30/17 08:30 06/29/17 08:29 Vancomycin HCl (Vanco rx to dose) 1 ea DAILY PRN MISC per RX protocol 05/30/17 09:00 06/29/17 08:59 Vancomycin HCl 1 gm/Dextrose 275 ml @ 183.3 mls/ hr Q24H IVPB 05/30/17 10:00 06/04/17 09:59 05/30/17 10:46 Vitamin A/Vitamin D (A & D Oint) 1 applic EVERY 12 HOURS TOPIC 05/30/17 09:00 06/29/17 08:59 05/30/17 10:46 Assessment/Plan Problem List: (1) Acute on chronic respiratory failure ICD Codes: J96.20 - Acute and chronic respiratory failure, unspecified whether with hypoxia or hypercapnia SNOMED: 34996214 (2) Sepsis ICD Codes: A41.9 - Sepsis, unspecified organism SNOMED: 69285636 Qualifiers: (3) COPD (chronic obstructive pulmonary disease) ICD Codes: J44.9 - Chronic obstructive pulmonary disease, unspecified SNOMED: 88833801 (4) Feeding by G-tube ICD Codes: Z93.1 - Gastrostomy status SNOMED: 150727327, 227235090 (5) Alzheimer disease ICD Codes: G30.9 - Alzheimer's disease, unspecified SNOMED: 06439660 Respiratory: monitor respiratory rate Cardiac: continue pressors, stop pressors Renal: F/U I&O, increase IV fluid Infectious Disease: check cultures Gastrointestinal: hold feedings, other - fleet enema Endocrine: monitor blood sugar, continue sliding scale insulin Hematologic: transfuse if hgb<8.5 Neurologic: PRN Ativan, PRN Morphine, keep patient comfortable Affect: PRN ativan Prophylaxis: Protonix Disposition: keep in ICU Discussed with: nurses, consultants, pillowcase sewer Rocio Uriarte MD May 30, 2017 11:56
[2017-05-30 12:00] VITALS: BP 139/55
[2017-05-30] MEDS ORDERED: Fleet's Enema 133ml RECTAL ONE (12:00)
[2017-05-30] MEDS: D5 1/2NS 1,000 ML IV SCH (14:08)
[2017-05-30 16:00] VITALS: BP 113/69
[2017-05-30] MEDS ORDERED: NS 275ml ONE (16:22)
[2017-05-30] MEDS ORDERED: Tubing IV Secondary IV ONE (16:22)
[2017-05-30] MEDS ORDERED: D5 1/2NS 1000ml IV ONE (16:22)
[2017-05-30 20:00] VITALS: BP 103/66
[2017-05-31] VITALS (7 sets, daily range): BP systolic 87–128; BP diastolic 53–78
[2017-05-31 04:40] LABS: BASOPHILS % (AUTO) 1.2 % (0.0-2.0); EOSINOPHILS % (AUTO) 9.7 % (0.0-3.0); HEMATOCRIT 28.1 % (42.0-52.0); HEMOGLOBIN 8.9 G/DL (14.2-18.0); LYMPHOCYTES % (AUTO) 33.3 % (20.0-45.0); MEAN CORPUSCULAR VOLUME 87 FL (80-99); MONOCYTES % (AUTO) 11.5 % (1.0-10.0); NEUTROPHILS % (AUTO) 44.4 % (45.0-75.0); PLATELET COUNT 413 K/UL (150-450); RED BLOOD COUNT 3.23 M/UL (4.70-6.10); RED CELL DISTRIBUTION WIDTH 14.2 % (11.6-14.8); WHITE BLOOD COUNT 8.5 K/UL (4.8-10.8)
[2017-05-31 05:10] LABS: ALANINE AMINOTRANSFERASE 22 U/L (12-78); ALBUMIN 2.2 G/DL (3.4-5.0); ALBUMIN/GLOBULIN RATIO 0.5 (1.0-2.7); ALKALINE PHOSPHATASE 86 U/L (46-116); ANION GAP 9 mmol/L (5-15); ASPARTATE AMINO TRANSFERASE 34 U/L (15-37); BILIRUBIN,TOTAL 0.4 MG/DL (0.2-1.0); BLOOD UREA NITROGEN 14 mg/dL (7-18); CALCIUM 8.4 MG/DL (8.5-10.1); CARBON DIOXIDE 25 MMOL/L (21-32); CHLORIDE 108 MMOL/L (98-107); CREATININE 0.6 MG/DL (0.55-1.30); PHOSPHORUS 3.1 MG/DL (2.5-4.9); SODIUM 142 MMOL/L (136-145)
[2017-05-31] MEDS: Pantoprazole Inj IV SCH ×2 (08:35→18:16)
[2017-05-31] MEDS: D5 1/2NS 1,000 ML IV SCH (08:36)
[2017-05-31] MEDS: Vitamin A&D Oint 2oz Tube TOPIC SCH ×2 (08:37→20:09)
[2017-05-31] MEDS: Heparin 5000 units/ml inj SUBQ SCH (08:38)
--- NOTE | 2017-05-31 08:49 | Diagnostic Imaging Report ---
Indication: Abdominal pain, abdominal distention Technique: Spiral acquisitions obtained through the abdomen and pelvis. No oral contrast utilized, per referring physician request No IV contrast utilized, per referring physician request. Multiplanar reconstructions were generated. Total dose length product 854 mGycm. CTDIvol(s) 15 mGy. Dose reduction achieved using automated exposure control Comparison: 03/17/2017 Findings: The appendix is normal. Again demonstrated is colonic interposition. There are a few colonic diverticula. No evidence of diverticulitis. There are a few mildly prominent fluid-filled small bowel loops in the left upper quadrant. No free or loculated intraperitoneal air or fluid is evident. There is a gastrostomy now present, appearing to be in good position. No significant soft tissue abnormality surrounding the gastrostomy shaft. The stomach, distal esophagus, and duodenum are otherwise unremarkable. Lack of IV contrast limits assessment of the solid organs. The liver, gallbladder, bile ducts, pancreas, spleen, adrenals, kidneys are unremarkable. No retroperitoneal or mesenteric mass or adenopathy. No pelvic mass or adenopathy. Prominent prostate. There is a small left pleural effusion. There is compressive atelectasis and possibly consolidation of portions of the left lower lobe. The bones demonstrate degenerative spondylosis changes. There is evidence of extensive deformities and heterotopic ossification about both hips. Impression: Nonspecific mild prominent fluid-filled small bowel loops in the left upper quadrant. Otherwise no acute process Gastrostomy, new since prior study 03/17/2017 Small left pleural effusion. Left basilar atelectasis and possible consolidation Colonic diverticulosis. No evidence of diverticulitis Other findings as noted, including hepatocolonic interposition, degenerative change of the hips with heterotopic ossification, prominent prostate This agrees with the preliminary interpretation provided overnight by [facility] teleradiology service. The CT scanner at [facility] is accredited by the [employer] and the scans are performed using protocols designed to limit radiation exposure to as low as reasonably achievable to attain images of sufficient resolution adequate for diagnostic evaluation.
[2017-05-31] MEDS: Vancomycin 1 GM in D5W 275 ML IVPB SCH (10:51)
--- NOTE | 2017-05-31 11:34 | Diagnostic Imaging Report ---
Indication: Dyspnea Technique: One view of the chest Comparison: 03/22/2017 Findings: Again demonstrated is elevation of the right hemidiaphragm. Previously demonstrated right perihilar atelectasis and right upper lobe infiltrates are no longer evident, although there may be some scarring at the right lung apex. There are left infrahilar infiltrates, also demonstrated on recent abdomen and pelvis CT scan, appearing similar to the previous study. Pleural fluid described on the CT is not evident on plain radiograph. Tracheostomy remains. Impression: Left infrahilar infiltrate, also demonstrated on earlier CT scan Elevated right hemidiaphragm, also previously described Other findings as noted
--- NOTE | 2017-05-31 11:35 | Pulmonolgy Critical Care Note ---
Critical Care - Asmt/Plan Problems: (1) Acute on chronic respiratory failure (2) Sepsis (3) UTI (urinary tract infection) (4) Acute renal failure (5) COPD (chronic obstructive pulmonary disease) (6) Feeding by G-tube (7) Alzheimer disease Respiratory: monitor respiratory rate, adjust FIO2 Cardiac: continue to monitor HR/BP Renal: F/U I&O Infectious Disease: check cultures Gastrointestinal: continue feedings/current rate, hold feedings Endocrine: monitor blood sugar, check HgA1C Neurologic: PRN Morphine Prophylaxis: Protonix Time Spent (Minutes): 40 Notes Reviewed: beekeeper, renal Discussed with: consultants, case management specialistvitamin manager - Objective Last 24 Hour Vital Signs Date Time Temp Pulse Resp B/P (MAP) Pulse Ox O2 Delivery O2 Flow Rate FiO2 05/31/17 10:45 68 16 35 05/31/17 09:00 35 05/31/17 08:51 73 21 35 05/31/17 08:00 97.5 77 20 110/70 99 Mechanical Ventilator 35 97.5 05/31/17 08:00 80 05/31/17 06:45 77 20 35 05/31/17 05:43 76 20 35 05/31/17 04:00 97.6 76 20 104/66 100 Mechanical Ventilator 35 97.6 05/31/17 04:00 89 05/31/17 04:00 35 05/31/17 03:18 73 20 35 05/31/17 01:54 73 20 35 05/31/17 00:00 65 05/31/17 00:00 97.5 77 20 110/70 100 Mechanical Ventilator 35 97.5 05/30/17 23:48 80 23 35 05/30/17 21:19 80 23 35 05/30/17 20:00 35 05/30/17 20:00 97.3 82 18 103/66 100 Mechanical Ventilator 35 97.3 05/30/17 20:00 89 05/30/17 19:03 80 23 35 05/30/17 16:44 80 23 35 05/30/17 16:05 35 05/30/17 16:00 98.3 81 25 113/69 100 Mechanical Ventilator 35 98.3 05/30/17 15:29 83 05/30/17 14:40 81 26 35 05/30/17 12:38 78 22 35 05/30/17 12:13 35 05/30/17 12:00 98.8 89 18 139/55 95 Mechanical Ventilator 35 98.8 05/30/17 11:49 81 Status: awake Condition: critical HEENT: atraumatic Lungs: rales, rhonchi Heart: HR/BP stable Abdomen: soft, non-tender Extremities: no C/C/E, edema Decubiti: stage Micro: Microbiology Date/Time Source Procedure Growth Status 05/29/17 22:35 Blood Blood Culture - Preliminary NO GROWTH AFTER 24 HOURS Resulted 05/29/17 22:30 Blood Blood Culture - Preliminary NO GROWTH AFTER 24 HOURS Resulted 05/29/17 22:50 Urine,Clean Catch Urine Culture - Preliminary Gram Negative Bacillus 1 Resulted Accucheck: 121 Critical Care - Subjective ROS Limited/Unobtainable: Yes ICU Day: 1 FI02: 35 Vent Support Breath Rate: 16 Vent Support Mode: AC Vent Tidal Volume: 450 Sputum Amount: Small PEEP: 5.0 PIP: 31 Fluids: d5 1/2 NS 50 cc.hour I&O: Intake and Output 05/30/17 05/31/17 19:00 07:00 Intake Total 616.6 ml 550 ml Output Total 170 ml 350 ml Balance 446.6 ml 200 ml Intake Free Water 50 ml IV Total 566.6 ml 550 ml Output Urine Total 170 ml 350 ml CXR: bilateral infiltrate Labs: Laboratory Tests Test 05/31/17 04:15 White Blood Count 8.5 K/UL (4.8-10.8) Red Blood Count 3.23 M/UL (4.70-6.10) L Hemoglobin 8.9 G/DL (14.2-18.0) L Hematocrit 28.1 % (42.0-52.0) L Mean Corpuscular Volume 87 FL (80-99) Mean Corpuscular Hemoglobin 27.5 PG (27.0-31.0) Mean Corpuscular Hemoglobin Concent 31.6 G/DL (32.0-36.0) L Red Cell Distribution Width 14.2 % (11.6-14.8) Platelet Count 413 K/UL (150-450) Mean Platelet Volume 5.8 FL (6.5-10.1) L Neutrophils (%) (Auto) 44.4 % (45.0-75.0) L Lymphocytes (%) (Auto) 33.3 % (20.0-45.0) Monocytes (%) (Auto) 11.5 % (1.0-10.0) H Eosinophils (%) (Auto) 9.7 % (0.0-3.0) H Basophils (%) (Auto) 1.2 % (0.0-2.0) Sodium Level 142 MMOL/L (136-145) Potassium Level 4.0 MMOL/L (3.5-5.1) Chloride Level 108 MMOL/L (98-107) H Carbon Dioxide Level 25 MMOL/L (21-32) Anion Gap 9 mmol/L (5-15) Blood Urea Nitrogen 14 mg/dL (7-18) Creatinine 0.6 MG/DL (0.55-1.30) Estimat Glomerular Filtration Rate > 60 mL/min (>60) Glucose Level 90 MG/DL (74-106) Calcium Level 8.4 MG/DL (8.5-10.1) L Phosphorus Level 3.1 MG/DL (2.5-4.9) Total Bilirubin 0.4 MG/DL (0.2-1.0) Aspartate Amino Transf (AST/SGOT) 34 U/L (15-37) Alanine Aminotransferase (ALT/SGPT) 22 U/L (12-78) Alkaline Phosphatase 86 U/L (46-116) Pro-B-Type Natriuretic Peptide 140 pg/mL (0-125) H Total Protein 6.5 G/DL (6.4-8.2) Albumin 2.2 G/DL (3.4-5.0) L Globulin 4.3 g/dL Albumin/Globulin Ratio 0.5 (1.0-2.7) L Rocio Uriarte MD May 31, 2017 11:35
--- NOTE | 2017-05-31 11:39 | General Progress Note ---
Progress Note Progress Note Surgery: Patient well known to me from prior admission when I had placed a tracheostomy for respiratory insufficiency requiring prolonged ventilatory support. still requiring support and on vent. trach has been changed since and new trach noted (clean, good position, functional). patient presents with history of recent emesis and on admission noted to be septic with possible pneumonia and UTI (based on UA). On exam noted to have some abdominal distention. Surgery called to evaluate for abdominal distention, nausea, emesis. CT FINDINGS Impression: Nonspecific mild prominent fluid-filled small bowel loops in the left upper quadrant. Otherwise no acute process Gastrostomy, new since prior study 03/17/2017 Small left pleural effusion. Left basilar atelectasis and possible consolidation Colonic diverticulosis. No evidence of diverticulitis Other findings as noted, including hepatocolonic interposition, degenerative change of the hips with heterotopic ossification, prominent prostate On exam abdomen improved. CT reviewed and non specific findings. Since no emesis. passing flatus. -No significant abdominal pathology noted. can monitor for now. -trach clean and functional. trach care prn -wean vent as tolerated -cont with current medical intervention. no surgical intervention necessary. thank you for this consult. Trent Livingston May 31, 2017 11:38
--- NOTE | 2017-05-31 11:58 | GI Initial Consult Note ---
Donna Melgar N.P. 05/31/17 1158: History of Present Illness General Date patient seen: May 31, 2017 Time patient seen: 11:56 Reason for Hospitalization: Vomiting Referring physician: MARCELA PENALOZA Reason for Consultation: COFFEE GROUNDS Present Illness HPI This is a 72-year-old male with a history of respiratory failure and currently on day ventilator via tracheostomy. Also with a feeding tube. Patient presents with chief complaint of vomiting. Onset today. 2 episode. None bloody none bilious. No diarrhea. No fever. History is from care home note since patient cannot give a history. GI consulted for coffee ground emesis. ROS limited. NAD with no active s/sx of N/V/D. Per RN, had reports of 150cc coffee round emesis. Gastric lavage ordered with no noted active bleed. History of esophagitis by endoscopy, iron deficiency and PEG back in March of 2017. Presents today with anemia and hypoalbuminemia. Endoscopy Procedure Note Indication for Procedure: dysphagia Procedures Performed: EGD, PEG TIMMY GARNER - Mar 22, 2017 14:49 Home Meds Reported Medications Acetaminophen 160MG/5ML* (ACETAMINOPHEN*) 160 Mg/5 Ml Elixir, ORAL, ML 05/30/17 Vit C/Ascorbate Ca/Ascorb Sod (VITAMIN C 500 MG/15 ML LIQUID) 500 Mg/15 Ml Liquid, GT DAILY, ML 05/30/17 Omeprazole (OMEPRAZOLE) 40 Mg Capsule.dr, 40 MG ORAL DAILY, CAP 05/30/17 Multivitamin Liquid* (MULTI-DELYN*) 237 Ml Liquid, 15 ML GT DAILY, ML 05/30/17 Magnesium Hydroxide* (MILK OF MAGNESIA*) 400 Mg/5 Ml Oral.susp, 30 ML ORAL DAILY , ML 05/30/17 Na Phos,M-B/Na Phos,Di-Ba* (FLEET ENEMA*) 133 Ml Enema, 133 ML RECTAL DAILY, ML 0 Refills 05/30/17 Bisacodyl (DULCOLAX) 10 Mg Supp.rect, 10 MG RC PRN PRN for Constipation, SUPP 05/30/17 Cranberry Fruit (CRANBERRY) 450 Mg Tablet, GT DAILY, TAB 05/30/17 Carvedilol (Coreg) 3.125 Mg Tablet, 3.125 MG GT EVERY 12 HOURS, TAB 05/30/17 Docusate Sodium* (DOCUSATE SODIUM*) 100 Mg Capsule, 100 MG GT DAILY, CAP 05/30/17 Atorvastatin Calcium* (ATORVASTATIN CALCIUM*) 40 Mg Tablet, 40 MG GT BEDTIME, TAB 05/30/17 Aspirin* (ASPIRIN*) 81 Mg Tab.chew, 81 MG ORAL DAILY, TAB 05/30/17 Al Hydroxide/mg Hydroxide (Mag-Al Plus Suspension) 30 Ml Oral.susp, 30 ML PO Q6HR, ML 03/03/17 Ondansetron* (ZOFRAN*) 4 Mg Tablet, 4 MG ORAL Q6H PRN for Nausea & Vomiting, TAB 03/03/17 Omeprazole (OMEPRAZOLE) 40 Mg Capsule.dr, 40 MG ORAL DAILY for 42 Days, CAP 11/04/16 Temazepam* (TEMAZEPAM*) 30 Mg Capsule, 15 MG ORAL BEDTIME PRN for Insomnia, CAP 11/04/16 Polyethylene Glycol 3350* (MIRALAX*) 17 Gm Powd.pack, 17 GM ORAL DAILY PRN for Constipation, PACKET 11/04/16 Ondansetron* (ZOFRAN*) 4 Mg Tablet, 4 MG ORAL Q6H PRN for Nausea & Vomiting, TAB 11/04/16 Nitroglycerin (NITROGLYCERIN) 0.4 Mg Tab.subl, 0.4 MG SL Q5M x3 DOSES PRN for Chest Pain, TAB 11/04/16 Diphenhydramine Hcl* (DIPHENHYDRAMINE HCL*) 25 Mg Capsule, 25 MG ORAL Q6H PRN for Itching, #30 CAP 0 Refills 11/04/16 Al Hydroxide/mg Hydroxide (Mag-Al Plus Suspension) 30 Ml Oral.susp, 30 ML PO Q6HR PRN for Constipation, ML 11/04/16 Acetaminophen* (ACETAMINOPHEN 325MG TABLET*) 325 Mg Tablet, 650 MG ORAL Q4H PRN for Mild Pain/Temp > 100.5, TAB 11/04/16 Sucralfate* (CARAFATE*) 1 Gm Tablet, 1 GM ORAL FOUR TIMES A DAY, TAB 11/04/16 Sucralfate* (CARAFATE*) 1 Gm Tablet, 1 GM ORAL FOUR TIMES A DAY, TAB 11/04/16 Ascorbic Acid* (VITAMIN C*) 500 Mg Tablet, 500 MG ORAL DAILY, #30 TAB 0 Refills 10/20/16 Multivitamin With Minerals (MULTIVITAMINS WITH MINERALS*) 1 Each Tablet, 1 TAB ORAL DAILY, TAB 10/20/16 Docusate Sodium* (DOCUSATE SODIUM*) 100 Mg Capsule, 100 MG ORAL DAILY, CAP 10/20/16 Aspirin* (ASPIR 81*) 81 Mg Tablet.dr, 81 MG ORAL DAILY, TAB 10/20/16 Acetaminophen (Tylenol) 325 Mg Tablet, 500 MG ORAL Q4HR PRN for Prn Pain/ Headache/Temp > 101, #30 TAB 0 Refills 10/20/16 Med list reviewed/reconciled: Yes Allergies: Coded Allergies: No Known Allergies (Unverified , 10/20/16) Patient History Limited by: medical condition History Provided By: Medical Record PMH Narrative Patient History Past Medical History: see triage record, old chart reviewed Past Surgical History: other Pertinent Family History: none Social History: Denies: smoking Last Menstrual Period: NA Now: No Immunizations: other Reviewed Nursing Documentation: PMH: Agreed, PSxH: Agreed Social History: Denies: smoking, alcohol use, drug use, other Review of Systems All Other Systems: limited Physical Exam Vital Signs Date Time Temp Pulse Resp B/P (MAP) Pulse Ox O2 Delivery O2 Flow Rate FiO2 05/29/17 22:13 99.3 110 26 139/81 98 Trach Collar 4.0 99.3 05/29/17 22:25 35 Sp02 EP Interpretation: reviewed Labs Laboratory Tests Test 05/31/17 04:15 White Blood Count 8.5 K/UL (4.8-10.8) Red Blood Count 3.23 M/UL (4.70-6.10) L Hemoglobin 8.9 G/DL (14.2-18.0) L Hematocrit 28.1 % (42.0-52.0) L Mean Corpuscular Volume 87 FL (80-99) Mean Corpuscular Hemoglobin 27.5 PG (27.0-31.0) Mean Corpuscular Hemoglobin Concent 31.6 G/DL (32.0-36.0) L Red Cell Distribution Width 14.2 % (11.6-14.8) Platelet Count 413 K/UL (150-450) Mean Platelet Volume 5.8 FL (6.5-10.1) L Neutrophils (%) (Auto) 44.4 % (45.0-75.0) L Lymphocytes (%) (Auto) 33.3 % (20.0-45.0) Monocytes (%) (Auto) 11.5 % (1.0-10.0) H Eosinophils (%) (Auto) 9.7 % (0.0-3.0) H Basophils (%) (Auto) 1.2 % (0.0-2.0) Sodium Level 142 MMOL/L (136-145) Potassium Level 4.0 MMOL/L (3.5-5.1) Chloride Level 108 MMOL/L (98-107) H Carbon Dioxide Level 25 MMOL/L (21-32) Anion Gap 9 mmol/L (5-15) Blood Urea Nitrogen 14 mg/dL (7-18) Creatinine 0.6 MG/DL (0.55-1.30) Estimat Glomerular Filtration Rate > 60 mL/min (>60) Glucose Level 90 MG/DL (74-106) Calcium Level 8.4 MG/DL (8.5-10.1) L Phosphorus Level 3.1 MG/DL (2.5-4.9) Total Bilirubin 0.4 MG/DL (0.2-1.0) Aspartate Amino Transf (AST/SGOT) 34 U/L (15-37) Alanine Aminotransferase (ALT/SGPT) 22 U/L (12-78) Alkaline Phosphatase 86 U/L (46-116) Pro-B-Type Natriuretic Peptide 140 pg/mL (0-125) H Total Protein 6.5 G/DL (6.4-8.2) Albumin 2.2 G/DL (3.4-5.0) L Globulin 4.3 g/dL Albumin/Globulin Ratio 0.5 (1.0-2.7) L General Appearance: no apparent distress, alert Head: normocephalic EENT: normal ENT inspection Neck: supple Respiratory: normal breath sounds, other - mech vent Cardiovascular: normal rate Gastrointestinal: gt - c/d/i Rectal: deferred Genitourinary: no CVA tenderness Skin: normal inspection, normal color, no rash, warm/dry Lymphatic: normal inspection, no adenopathy Current Medications Current Medications Medications (Trade) Dose Ordered Sig/Ant Route PRN Reason Start Time Stop Time Status Last Admin Dose Admin Acetaminophen (Tylenol) 650 mg Q4H PRN ORAL FEVER (temp>100.5F) 05/30/17 08:30 06/29/17 08:29 Albuterol/ Ipratropium (Albuterol/ Ipratropium) 3 ml Q4H PRN HHN Shortness of Breath 05/30/17 08:30 06/04/17 08:29 Dextrose (Dextrose 50%) STAT PRN IV Hypoglycemia 05/30/17 08:30 06/29/17 08:29 Dextrose/Sodium Chloride 1,000 ml @ 50 mls/hr Q20H IV 05/30/17 12:30 06/29/17 12:29 05/31/17 08:36 Lorazepam (Ativan 2mg/ml 1ml) 2 mg Q2H PRN IV For Anxiety 05/30/17 08:30 06/06/17 08:29 Morphine Sulfate (Morphine Sulfate) 4 mg Q4H PRN IVP Severe Pain (Pain Scale 7-10) 05/30/17 08:30 06/06/17 08:29 Ondansetron HCl (Zofran) 4 mg Q6H PRN IVP Nausea & Vomiting 05/30/17 08:30 06/29/17 08:29 Pantoprazole (Protonix) 40 mg BID IV 05/31/17 18:00 06/30/17 17:59 Polyethylene Glycol (Miralax) 17 gm DAILYPRN PRN ORAL Constipation 05/30/17 08:30 06/29/17 08:29 Vancomycin HCl (Vanco rx to dose) 1 ea DAILY PRN MISC per RX protocol 05/30/17 09:00 06/29/17 08:59 Vancomycin HCl 1 gm/Dextrose 275 ml @ 183.3 mls/ hr Q24H IVPB 05/30/17 10:00 06/04/17 09:59 05/31/17 10:51 Vitamin A/Vitamin D (A & D Oint) 1 applic EVERY 12 HOURS TOPIC 05/30/17 09:00 06/29/17 08:59 05/31/17 08:37 GI: Plan Problems: (1) Anemia (2) Encounter for PEG (percutaneous endoscopic gastrostomy) (3) Feeding by G-tube (4) Esophagitis Plan CT AP reviewed. gastric lavage by RN >> no reports of active bleed will consider endoscopy pending w/u GTFs per anemia work up OB stool r/o GI bleed monitor H&H, prn transfusions bowel regime ppi BID fu labs Discussed with Dr. Garner. Thank you for this patient referral, we will follow. BEATRIZ GARNERD 06/04/17 0909: History of Present Illness General Reason for Hospitalization: Vomiting Present Illness Home Meds Reported Medications Acetaminophen 160MG/5ML* (ACETAMINOPHEN*) 160 Mg/5 Ml Elixir, ORAL, ML 05/30/17 Vit C/Ascorbate Ca/Ascorb Sod (VITAMIN C 500 MG/15 ML LIQUID) 500 Mg/15 Ml Liquid, GT DAILY, ML 05/30/17 Omeprazole (OMEPRAZOLE) 40 Mg Capsule.dr, 40 MG ORAL DAILY, CAP 05/30/17 Multivitamin Liquid* (MULTI-DELYN*) 237 Ml Liquid, 15 ML GT DAILY, ML 05/30/17 Magnesium Hydroxide* (MILK OF MAGNESIA*) 400 Mg/5 Ml Oral.susp, 30 ML ORAL DAILY , ML 05/30/17 Na Phos,M-B/Na Phos,Di-Ba* (FLEET ENEMA*) 133 Ml Enema, 133 ML RECTAL DAILY, ML 0 Refills 05/30/17 Bisacodyl (DULCOLAX) 10 Mg Supp.rect, 10 MG RC PRN PRN for Constipation, SUPP 05/30/17 Cranberry Fruit (CRANBERRY) 450 Mg Tablet, GT DAILY, TAB 05/30/17 Carvedilol (Coreg) 3.125 Mg Tablet, 3.125 MG GT EVERY 12 HOURS, TAB 05/30/17 Docusate Sodium* (DOCUSATE SODIUM*) 100 Mg Capsule, 100 MG GT DAILY, CAP 05/30/17 Atorvastatin Calcium* (ATORVASTATIN CALCIUM*) 40 Mg Tablet, 40 MG GT BEDTIME, TAB 05/30/17 Aspirin* (ASPIRIN*) 81 Mg Tab.chew, 81 MG ORAL DAILY, TAB 05/30/17 Al Hydroxide/mg Hydroxide (Mag-Al Plus Suspension) 30 Ml Oral.susp, 30 ML PO Q6HR, ML 03/03/17 Ondansetron* (ZOFRAN*) 4 Mg Tablet, 4 MG ORAL Q6H PRN for Nausea & Vomiting, TAB 03/03/17 Omeprazole (OMEPRAZOLE) 40 Mg Capsule.dr, 40 MG ORAL DAILY for 42 Days, CAP 11/04/16 Temazepam* (TEMAZEPAM*) 30 Mg Capsule, 15 MG ORAL BEDTIME PRN for Insomnia, CAP 11/04/16 Polyethylene Glycol 3350* (MIRALAX*) 17 Gm Powd.pack, 17 GM ORAL DAILY PRN for Constipation, PACKET 11/04/16 Ondansetron* (ZOFRAN*) 4 Mg Tablet, 4 MG ORAL Q6H PRN for Nausea & Vomiting, TAB 11/04/16 Nitroglycerin (NITROGLYCERIN) 0.4 Mg Tab.subl, 0.4 MG SL Q5M x3 DOSES PRN for Chest Pain, TAB 11/04/16 Diphenhydramine Hcl* (DIPHENHYDRAMINE HCL*) 25 Mg Capsule, 25 MG ORAL Q6H PRN for Itching, #30 CAP 0 Refills 11/04/16 Al Hydroxide/mg Hydroxide (Mag-Al Plus Suspension) 30 Ml Oral.susp, 30 ML PO Q6HR PRN for Constipation, ML 11/04/16 Acetaminophen* (ACETAMINOPHEN 325MG TABLET*) 325 Mg Tablet, 650 MG ORAL Q4H PRN for Mild Pain/Temp > 100.5, TAB 11/04/16 Sucralfate* (CARAFATE*) 1 Gm Tablet, 1 GM ORAL FOUR TIMES A DAY, TAB 11/04/16 Sucralfate* (CARAFATE*) 1 Gm Tablet, 1 GM ORAL FOUR TIMES A DAY, TAB 11/04/16 Ascorbic Acid* (VITAMIN C*) 500 Mg Tablet, 500 MG ORAL DAILY, #30 TAB 0 Refills 10/20/16 Multivitamin With Minerals (MULTIVITAMINS WITH MINERALS*) 1 Each Tablet, 1 TAB ORAL DAILY, TAB 10/20/16 Docusate Sodium* (DOCUSATE SODIUM*) 100 Mg Capsule, 100 MG ORAL DAILY, CAP 10/20/16 Aspirin* (ASPIR 81*) 81 Mg Tablet.dr, 81 MG ORAL DAILY, TAB 10/20/16 Acetaminophen (Tylenol) 325 Mg Tablet, 500 MG ORAL Q4HR PRN for Prn Pain/ Headache/Temp > 101, #30 TAB 0 Refills 10/20/16 Allergies: Coded Allergies: No Known Allergies (Unverified , 10/20/16) GI: Plan Plan The patient was seen and examined at bedside and all new and available data was reviewed in the patients chart. I agree with the above findings, impression and plan. (Patient seen earlier today. Signature stamp does not reflect patient encounter time.). - MD Talia Feldman Anh Obey Jj May 31, 2017 11:58 TIMMY GARNER Jun 04, 2017 09:09
--- NOTE | 2017-05-31 15:34 | Wound Care Consultation ---
Wound Assessment Wound Assessment #1: Wound Number: 1 Wound Present on Admission: Yes New Wound: No Status Change of Wound: No Wound Location Body Site Modif: mid Wound Location Body Site: other - sacrococcygeal Wound Type: scar Kasey Test: Does not Kasey Percent of Wound [place]/Red: 100 Wound Drainage Amount: None Wound Drainage Odor: None/Absent Tissue Surrounding Wound: Intact Wound General Appearance: Reddened Wound Assessment #2: Wound Number: 2 Wound Present on Admission: Yes New Wound: No Status Change of Wound: No Wound Location Body Site Modif: right Wound Location Body Site: heel Wound Type: pressure ulcer Kasey Test: Does not Kasey Pressure Ulcer Stage: Deep Tissue Injury Wound Thickness: Full Thickness Wound Length: 3.5 Wound Width: 3.5 Wound Depth: utd Percent of Wound Black/Brown: 100 Wound Drainage Amount: None Wound Drainage Odor: None/Absent Tissue Surrounding Wound: Intact Wound General Appearance: Reddened - brown Wound Assessment #3: Wound Number: 3 Wound Present on Admission: Yes New Wound: No Status Change of Wound: No Wound Location Body Site Modif: left, lateral Wound Location Body Site: malleolus/ankle Wound Type: scar Kasey Test: Does not Kasey Wound Thickness: Full Thickness Percent of Wound [place]/Red: 100 Wound Drainage Amount: None Wound Drainage Odor: None/Absent Tissue Surrounding Wound: Intact Wound Assessment #4: Wound Number: 4 Wound Present on Admission: Yes New Wound: No Status Change of Wound: No Wound Location Body Site Modif: left, mid, lateral Wound Location Body Site: foot Wound Type: pressure ulcer Kasey Test: Does not Kasey Pressure Ulcer Stage: Deep Tissue Injury Wound Thickness: Full Thickness Wound Length: 1.5 Wound Width: 1.5 Wound Depth: utd Percent of Wound Black/Brown: 100 Wound Drainage Amount: None Wound Drainage Odor: None/Absent Tissue Surrounding Wound: Intact Wound General Appearance: Reddened - brown Wound Comment #1 Right heel DTI pressure ulcer #2 Right medial malleolus full thickness scar tissue #3 Left lateral malleolus full thickness scar tissue #4 Left lateral mid foot DTI pressure ulcer Recommendation -Local wound care per protocol -Keep clean and dry -Turn and reposition -Optimize nutrition -Offload both heels -Heel protector on both heels -Low air loss mattress -Assess and f/u accordingly for any changes GEBREMEDHIN,FADI RN May 31, 2017 15:34
[2017-05-31] MEDS: Cefepime HCl 1 GM in NS 55 ML IVPB SCH (16:09)
--- NOTE | 2017-05-31 16:09 | Consultation ---
History of Present Illness General Date patient seen: May 31, 2017 Time patient seen: 15:46 Chief Complaint: Vomiting Referring physician: MARCELA PENALOZA Reason for Consultation: COFFEE GROUNDS Present Illness HPI 71 y/o M with hx of OA, HTN, COPD, GERD, H.pylori, esophagitis (EGD diagnosed), iron deficiency anemia, Dementia w/ psychosis, chronic resp failure trach/vent dependant, SNF resident, dysphagia s/p GT presents to ED on 05/30 with 2 episodes of non bloody, non-bilious emesis. Gastric lavage done in ED and no active bleed was noted. Noted to have abd distention. No diarrhea, fever. Of note, patient admitted here on 03/03-04/02 w/ sepsis, HCAP 2ry to ESBL PNA, aerocuccus urinae bacteremia. Trach and PEG placed on that admission. Allergies: Coded Allergies: No Known Allergies (Unverified , 10/20/16) Medication History Scheduled Al Hydroxide/mg Hydroxide (Mag-Al Plus Suspension), 30 ML PO Q6HR, (Reported) Ascorbic Acid* (Vitamin C*), 500 MG ORAL DAILY, (Reported) Aspirin* (Aspir 81*), 81 MG ORAL DAILY, (Reported) Aspirin* (Aspirin*), 81 MG ORAL DAILY, (Reported) Atorvastatin Calcium* (Atorvastatin Calcium*), 40 MG GT BEDTIME, (Reported) Carvedilol (Coreg), 3.125 MG GT EVERY 12 HOURS, (Reported) Cranberry Fruit (Cranberry), Unknown Dose GT DAILY, (Reported) Docusate Sodium* (Docusate Sodium*), 100 MG ORAL DAILY, (Reported) Docusate Sodium* (Docusate Sodium*), 100 MG GT DAILY, (Reported) Magnesium Hydroxide* (Milk Of Magnesia*), 30 ML ORAL DAILY, (Reported) Multivitamin Liquid* (Multi-Delyn*), 15 ML GT DAILY, (Reported) Multivitamin With Minerals (Multivitamins With Minerals*), 1 TAB ORAL DAILY, ( Reported) Na Phos,M-B/Na Phos,Di-Ba* (Fleet Enema*), 133 ML RECTAL DAILY, (Reported) Nitroglycerin (Nitroglycerin), 0.4 MG SL Q5M x3 DOSES PRN, (Reported) Omeprazole (Omeprazole), 40 MG ORAL DAILY, (Reported) Omeprazole (Omeprazole), 40 MG ORAL DAILY, (Reported) Sucralfate* (Carafate*), 1 GM ORAL FOUR TIMES A DAY, (Reported) Sucralfate* (Carafate*), 1 GM ORAL FOUR TIMES A DAY, (Reported) Vit C/Ascorbate Ca/Ascorb Sod (Vitamin C 500 Mg/15 Ml Liquid), Unknown Dose GT DAILY, (Reported) Scheduled PRN Acetaminophen (Tylenol), 500 MG ORAL Q4HR PRN for Prn Pain/Headache/Temp > 101, (Reported) Acetaminophen* (Acetaminophen 325MG Tablet*), 650 MG ORAL Q4H PRN for Mild Pain/ Temp > 100.5, (Reported) Al Hydroxide/mg Hydroxide (Mag-Al Plus Suspension), 30 ML PO Q6HR PRN for Constipation, (Reported) Bisacodyl (Dulcolax), 10 MG RC PRN PRN for Constipation, (Reported) Diphenhydramine Hcl* (Diphenhydramine Hcl*), 25 MG ORAL Q6H PRN for Itching, ( Reported) Ondansetron* (Zofran*), 4 MG ORAL Q6H PRN for Nausea & Vomiting, (Reported) Ondansetron* (Zofran*), 4 MG ORAL Q6H PRN for Nausea & Vomiting, (Reported) Polyethylene Glycol 3350* (Miralax*), 17 GM ORAL DAILY PRN for Constipation, ( Reported) Temazepam* (Temazepam*), 15 MG ORAL BEDTIME PRN for Insomnia, (Reported) Miscellaneous Medications Acetaminophen 160MG/5ML* (Acetaminophen*), Unknown Dose ORAL, (Reported) Patient History Healthcare decision maker Resuscitation status Advanced Directive on File Yes Patient History Narrative Pmhx: as above Shx:Denies: smoking Fhx: non contributory Review of Systems ROS Narrative unable to obtain Physical Exam Physical Exam Narrative General Appearance: no apparent distress, alert Head: normocephalic EENT: normal ENT inspection Neck: supple Respiratory: normal breath sounds, other - mech vent Cardiovascular: normal rate Gastrointestinal: gt - c/d/i Rectal: deferred Genitourinary: no CVA tenderness Skin: normal inspection, normal color, no rash, warm/dry Lymphatic: normal inspection, no adenopathy Last 24 Hour Vital Signs Date Time Temp Pulse Resp B/P (MAP) Pulse Ox O2 Delivery O2 Flow Rate FiO2 05/31/17 12:10 128/78 05/31/17 12:00 35 05/31/17 12:00 99.0 78 18 87/53 95 Mechanical Ventilator 35 99.0 05/31/17 12:00 75 05/31/17 10:45 68 16 35 05/31/17 09:00 35 05/31/17 08:51 73 21 35 05/31/17 08:00 97.5 77 20 110/70 99 Mechanical Ventilator 35 97.5 05/31/17 08:00 80 05/31/17 06:45 77 20 35 05/31/17 05:43 76 20 35 05/31/17 04:00 97.6 76 20 104/66 100 Mechanical Ventilator 35 97.6 05/31/17 04:00 89 05/31/17 04:00 35 05/31/17 03:18 73 20 35 05/31/17 01:54 73 20 35 05/31/17 00:00 65 05/31/17 00:00 97.5 77 20 110/70 100 Mechanical Ventilator 35 97.5 05/30/17 23:48 80 23 35 05/30/17 21:19 80 23 35 05/30/17 20:00 35 05/30/17 20:00 97.3 82 18 103/66 100 Mechanical Ventilator 35 97.3 05/30/17 20:00 89 05/30/17 19:03 80 23 35 05/30/17 16:44 80 23 35 05/30/17 16:05 35 05/30/17 16:00 98.3 81 25 113/69 100 Mechanical Ventilator 35 98.3 Intake and Output 05/30/17 05/31/17 19:00 07:00 Intake Total 616.6 ml 550 ml Output Total 170 ml 350 ml Balance 446.6 ml 200 ml Intake Free Water 50 ml IV Total 566.6 ml 550 ml Output Urine Total 170 ml 350 ml Laboratory Tests Test 05/31/17 04:15 White Blood Count 8.5 K/UL (4.8-10.8) Red Blood Count 3.23 M/UL (4.70-6.10) L Hemoglobin 8.9 G/DL (14.2-18.0) L Hematocrit 28.1 % (42.0-52.0) L Mean Corpuscular Volume 87 FL (80-99) Mean Corpuscular Hemoglobin 27.5 PG (27.0-31.0) Mean Corpuscular Hemoglobin Concent 31.6 G/DL (32.0-36.0) L Red Cell Distribution Width 14.2 % (11.6-14.8) Platelet Count 413 K/UL (150-450) Mean Platelet Volume 5.8 FL (6.5-10.1) L Neutrophils (%) (Auto) 44.4 % (45.0-75.0) L Lymphocytes (%) (Auto) 33.3 % (20.0-45.0) Monocytes (%) (Auto) 11.5 % (1.0-10.0) H Eosinophils (%) (Auto) 9.7 % (0.0-3.0) H Basophils (%) (Auto) 1.2 % (0.0-2.0) Sodium Level 142 MMOL/L (136-145) Potassium Level 4.0 MMOL/L (3.5-5.1) Chloride Level 108 MMOL/L (98-107) H Carbon Dioxide Level 25 MMOL/L (21-32) Anion Gap 9 mmol/L (5-15) Blood Urea Nitrogen 14 mg/dL (7-18) Creatinine 0.6 MG/DL (0.55-1.30) Estimat Glomerular Filtration Rate > 60 mL/min (>60) Glucose Level 90 MG/DL (74-106) Calcium Level 8.4 MG/DL (8.5-10.1) L Phosphorus Level 3.1 MG/DL (2.5-4.9) Total Bilirubin 0.4 MG/DL (0.2-1.0) Aspartate Amino Transf (AST/SGOT) 34 U/L (15-37) Alanine Aminotransferase (ALT/SGPT) 22 U/L (12-78) Alkaline Phosphatase 86 U/L (46-116) Pro-B-Type Natriuretic Peptide 140 pg/mL (0-125) H Total Protein 6.5 G/DL (6.4-8.2) Albumin 2.2 G/DL (3.4-5.0) L Globulin 4.3 g/dL Albumin/Globulin Ratio 0.5 (1.0-2.7) L Height (Feet): 5 Height (Inches): 6.00 Weight (Pounds): 140 Medications Current Medications Medications (Trade) Dose Ordered Sig/Ant Route PRN Reason Start Time Stop Time Status Last Admin Dose Admin Acetaminophen (Tylenol) 650 mg Q4H PRN ORAL FEVER (temp>100.5F) 05/30/17 08:30 06/29/17 08:29 Albuterol/ Ipratropium (Albuterol/ Ipratropium) 3 ml Q4H PRN HHN Shortness of Breath 05/30/17 08:30 06/04/17 08:29 Cefepime HCl 1 gm/ Sodium Chloride 55 ml @ 110 mls/hr Q12HR@0400,1600 IVPB 05/31/17 16:00 06/07/17 15:59 Dextrose (Dextrose 50%) STAT PRN IV Hypoglycemia 05/30/17 08:30 06/29/17 08:29 Dextrose/Sodium Chloride 1,000 ml @ 50 mls/hr Q20H IV 05/30/17 12:30 06/29/17 12:29 05/31/17 08:36 Lorazepam (Ativan 2mg/ml 1ml) 2 mg Q2H PRN IV For Anxiety 05/30/17 08:30 06/06/17 08:29 Morphine Sulfate (Morphine Sulfate) 4 mg Q4H PRN IVP Severe Pain (Pain Scale 7-10) 05/30/17 08:30 06/06/17 08:29 Ondansetron HCl (Zofran) 4 mg Q6H PRN IVP Nausea & Vomiting 05/30/17 08:30 06/29/17 08:29 Pantoprazole (Protonix) 40 mg BID IV 05/31/17 18:00 06/30/17 17:59 Polyethylene Glycol (Miralax) 17 gm DAILYPRN PRN ORAL Constipation 05/30/17 08:30 06/29/17 08:29 Vancomycin HCl (Vanco rx to dose) 1 ea DAILY PRN MISC per RX protocol 05/30/17 09:00 06/29/17 08:59 Vancomycin HCl 1 gm/Dextrose 275 ml @ 183.3 mls/ hr Q24H IVPB 05/30/17 10:00 06/04/17 09:59 05/31/17 10:51 Vitamin A/Vitamin D (A & D Oint) 1 applic EVERY 12 HOURS TOPIC 05/30/17 09:00 06/29/17 08:59 05/31/17 08:37 Assessment/Plan Assessment/Plan Abx: IV Vancomycin 05/30- Cefepime 05/29- Assessment: Vomiting Abd distention -CT abd/p: Nonspecific mild prominent fluid-filled small bowel loops in the left upper quadrant. Otherwise no acute process. Gastrostomy, new since prior study 03/17/2017. Small left pleural effusion. Left basilar atelectasis and possible consolidation. Colonic diverticulosis. No evidence of diverticulitis. Other findings as noted, including hepatocolonic interposition, degenerative change of the hips with heterotopic ossification, prominent prostate Probably aspiration pneumonia- r/o Flu -sp cx p ?UTI, unable to assess for symptoms -u/a wbc 20-30, nit neg, leuk +3; ucx 30-40k GNB Leukocytosis, resolved Chronic resp failure on Vent/trach 03/20/17 Dysphagia s/p PEG 03/22/17 Recent aerococcus bacteremia 03/2017, s/p Rx -03/03 Bcx 1/ +; 03/06 Neg x4 -Elevated CRp 21.0 03/06; CRP 1.2 03/19 -03/03 TTE: no vegetations, no significant valve abnormalities Recent ESBL E.coli HCAP 02/2017, s/p Rx Osteoarthritis. Hypertension. COPD. History of GERD History of H. pylori in the past Dementia with psychosis Esophagitis (per EGD) Plan: -Continue IV Vancomycin #2 and Cefepime #3 pending cultures -if HD decompensation, switch Cefepime to Meropenem 03/22 SP Ancef x1 (periop) 03/21 SP Meropenem #14 03/20 SP IV Vanco #10 03/15 SP Dapto x1 03/08 SP vancomycin d# 5 03/07 SP Zosyn d# 4 -f/u cx -Monitor CBC/CMP, temperatures -influenza sc -trach/peg care -aspiration precautions Thank you for this consultation. Will continue to follow along with you. Discussed with Alise Williamson M.D. May 31, 2017 16:09
[2017-05-31] MEDS ORDERED: Pantoprazole Inj IV SCH (21:00)
[2017-06-01] VITALS: BP 122/87
[2017-06-01 04:00] VITALS: BP 118/82
[2017-06-01] MEDS: D5 1/2NS 1,000 ML IV SCH (04:22)
[2017-06-01] MEDS: Cefepime HCl 1 GM in NS 55 ML IVPB SCH ×2 (04:22→16:21)
[2017-06-01 05:25] LABS: EOSINOPHILS % (AUTO) 12.2 % (0.0-3.0); HEMATOCRIT 28.5 % (42.0-52.0); LYMPHOCYTES % (AUTO) 29.5 % (20.0-45.0); MEAN CORPUSCULAR VOLUME 86 FL (80-99); MONOCYTES % (AUTO) 8.5 % (1.0-10.0); NEUTROPHILS % (AUTO) 48.8 % (45.0-75.0); PLATELET COUNT 415 K/UL (150-450); RED BLOOD COUNT 3.29 M/UL (4.70-6.10); RED CELL DISTRIBUTION WIDTH 14.3 % (11.6-14.8); WHITE BLOOD COUNT 9.4 K/UL (4.8-10.8)
[2017-06-01 05:55] LABS: ALANINE AMINOTRANSFERASE 22 U/L (12-78); ALBUMIN 2.3 G/DL (3.4-5.0); ALBUMIN/GLOBULIN RATIO 0.5 (1.0-2.7); ALKALINE PHOSPHATASE 86 U/L (46-116); ANION GAP 9 mmol/L (5-15); ASPARTATE AMINO TRANSFERASE 24 U/L (15-37); BILIRUBIN,TOTAL 0.3 MG/DL (0.2-1.0); BLOOD UREA NITROGEN 12 mg/dL (7-18); CALCIUM 8.7 MG/DL (8.5-10.1); CARBON DIOXIDE 26 MMOL/L (21-32); CHLORIDE 106 MMOL/L (98-107); CREATININE 0.8 MG/DL (0.55-1.30); FERRITIN 326 NG/ML (8-388); PHOSPHORUS 3.2 MG/DL (2.5-4.9); POTASSIUM 3.1 MMOL/L (3.5-5.1); SODIUM 141 MMOL/L (136-145)
[2017-06-01 06:31] LABS: % IRON SATURATION 18 % (15-50); IRON 44 ug/dL (50-175); TOTAL IRON BINDING CAPACITY 244 ug/dL (250-450)
[2017-06-01 08:00] VITALS: BP 98/82
[2017-06-01] MEDS: Pantoprazole Inj IV SCH ×2 (08:53→18:12)
[2017-06-01] MEDS: Vitamin A&D Oint 2oz Tube TOPIC SCH ×2 (08:53→20:30)
[2017-06-01] MEDS ORDERED: Potassium Chloride 40 MEQ in Sodium Chloride 500ML 550 ML IVPB ONE (09:00)
[2017-06-01] MEDS: Vancomycin 1 GM in D5W 275 ML IVPB SCH (09:56)
[2017-06-01 12:00] VITALS: BP 154/76
--- NOTE | 2017-06-01 13:09 | General Surgery Progress Note ---
General Surgery-Progress Note Subjective Additional Comments no acute events. Objective Last 24 Hour Vital Signs Date Time Temp Pulse Resp B/P (MAP) Pulse Ox O2 Delivery O2 Flow Rate FiO2 06/01/17 13:01 65 19 35 06/01/17 12:09 35 06/01/17 12:00 97.9 74 24 154/76 100 Mechanical Ventilator 35 97.9 06/01/17 11:04 64 17 35 06/01/17 09:17 55 17 35 06/01/17 08:00 69 06/01/17 08:00 35 06/01/17 08:00 97.7 73 24 98/82 100 Mechanical Ventilator 35 97.7 06/01/17 07:01 69 16 35 06/01/17 05:14 69 16 35 06/01/17 04:00 35 06/01/17 04:00 98.3 69 18 118/82 100 Mechanical Ventilator 35 98.3 06/01/17 03:27 77 06/01/17 02:39 68 16 35 06/01/17 00:41 77 26 35 06/01/17 00:00 35 06/01/17 00:00 98.2 70 18 122/87 100 Mechanical Ventilator 35 98.2 05/31/17 23:24 68 05/31/17 23:02 67 18 35 05/31/17 21:10 74 26 35 05/31/17 20:00 98.5 64 18 113/78 100 Mechanical Ventilator 35 98.5 05/31/17 20:00 35 05/31/17 19:27 59 05/31/17 18:56 72 18 35 05/31/17 17:17 75 26 35 05/31/17 16:31 59 16 35 05/31/17 16:00 35 05/31/17 16:00 97.9 65 18 120/75 100 Mechanical Ventilator 35 97.9 05/31/17 16:00 69 I&O Intake and Output 05/31/17 06/01/17 19:00 07:00 Intake Total 800.000 ml Balance 800.000 ml IV Total 800.000 ml # Voids 2 2 # Bowel Movements 3 Drains: none Cardiovascular: RSR Respiratory: clear Abdomen: soft, flat, present bowel sounds Extremities: no cyanosis Laboratory Tests Test 06/01/17 03:50 White Blood Count 9.4 K/UL (4.8-10.8) Red Blood Count 3.29 M/UL (4.70-6.10) L Hemoglobin 9.0 G/DL (14.2-18.0) L Hematocrit 28.5 % (42.0-52.0) L Mean Corpuscular Volume 86 FL (80-99) Mean Corpuscular Hemoglobin 27.5 PG (27.0-31.0) Mean Corpuscular Hemoglobin Concent 31.8 G/DL (32.0-36.0) L Red Cell Distribution Width 14.3 % (11.6-14.8) Platelet Count 415 K/UL (150-450) Mean Platelet Volume 5.8 FL (6.5-10.1) L Neutrophils (%) (Auto) 48.8 % (45.0-75.0) Lymphocytes (%) (Auto) 29.5 % (20.0-45.0) Monocytes (%) (Auto) 8.5 % (1.0-10.0) Eosinophils (%) (Auto) 12.2 % (0.0-3.0) H Basophils (%) (Auto) 1.0 % (0.0-2.0) Reticulocyte Count 1.1 % (0.0-2.0) Prothrombin Time 10.9 SEC (9.30-11.50) Prothromb Time International Ratio 1.0 (0.9-1.1) Activated Partial Thromboplast Time 26 SEC (23-33) Sodium Level 141 MMOL/L (136-145) Potassium Level 3.1 MMOL/L (3.5-5.1) L Chloride Level 106 MMOL/L (98-107) Carbon Dioxide Level 26 MMOL/L (21-32) Anion Gap 9 mmol/L (5-15) Blood Urea Nitrogen 12 mg/dL (7-18) Creatinine 0.8 MG/DL (0.55-1.30) Estimat Glomerular Filtration Rate > 60 mL/min (>60) Glucose Level 89 MG/DL (74-106) Calcium Level 8.7 MG/DL (8.5-10.1) Phosphorus Level 3.2 MG/DL (2.5-4.9) Magnesium Level 2.0 MG/DL (1.8-2.4) Iron Level 44 ug/dL (50-175) L Total Iron Binding Capacity 244 ug/dL (250-450) L Percent Iron Saturation 18 % (15-50) Unsaturated Iron Binding 200 ug/dL (112-346) Ferritin 326 NG/ML (8-388) Total Bilirubin 0.3 MG/DL (0.2-1.0) Aspartate Amino Transf (AST/SGOT) 24 U/L (15-37) Alanine Aminotransferase (ALT/SGPT) 22 U/L (12-78) Alkaline Phosphatase 86 U/L (46-116) Total Protein 6.9 G/DL (6.4-8.2) Albumin 2.3 G/DL (3.4-5.0) L Globulin 4.6 g/dL Albumin/Globulin Ratio 0.5 (1.0-2.7) L Vitamin B12 Level 834 PG/ML (193-986) Folate 15.2 NG/ML (8.6-58.9) Thyroid Stimulating Hormone (TSH) 2.750 uiU/mL (0.358-3.740) Free Thyroxine 1.11 NG/DL (0.76-1.46) Plan Problems: (1) Sepsis Assessment & Plan: CT FINDINGS Impression: Nonspecific mild prominent fluid- filled small bowel loops in the left upper quadrant. Otherwise no acute process Gastrostomy, new since prior study 03/17/2017 Small left pleural effusion. Left basilar atelectasis and possible consolidation Colonic diverticulosis. No evidence of diverticulitis Other findings as noted, including hepatocolonic interposition, degenerative change of the hips with heterotopic ossification, prominent prostate Abdominal exam benign. abd soft, nt/nd, bs+. CT reviewed and non specific findings. Since no emesis. passing flatus. -No significant abdominal pathology noted. can monitor for now. -feeds as tolerated Trent Livingston Jun 01, 2017 13:09
--- NOTE | 2017-06-01 13:18 | GI Progress Note ---
Assessment/Plan Problems: (1) Coffee ground emesis ICD Codes: K92.0 - Hematemesis SNOMED: 92206880, 371084416 (2) Encounter for PEG (percutaneous endoscopic gastrostomy) ICD Codes: Z43.1 - Encounter for attention to gastrostomy SNOMED: 738480413, 188887346 (3) Anemia ICD Codes: D64.9 - Anemia, unspecified SNOMED: 668803039 (4) Esophagitis ICD Codes: K20.9 - Esophagitis, unspecified SNOMED: 90137525 (5) Feeding by G-tube ICD Codes: Z93.1 - Gastrostomy status SNOMED: 473714538, 761196595 (6) Alzheimer disease ICD Codes: G30.9 - Alzheimer's disease, unspecified SNOMED: 34566106 Status: unchanged Status Narrative Discussed with Dr. Kaur. Assessment/Plan CT AP reviewed. EGD scheduled for tomorrow. - GTFs, NPO @ CO. - hold all blood thinners tonight. monitor H&H, prn transfusions bowel regime ppi BID fu labs Subjective Subjective limited Objective Last 24 Hour Vital Signs Date Time Temp Pulse Resp B/P (MAP) Pulse Ox O2 Delivery O2 Flow Rate FiO2 06/01/17 13:01 65 19 35 06/01/17 12:09 35 06/01/17 12:00 97.9 74 24 154/76 100 Mechanical Ventilator 35 97.9 06/01/17 11:04 64 17 35 06/01/17 09:17 55 17 35 06/01/17 08:00 69 06/01/17 08:00 35 06/01/17 08:00 97.7 73 24 98/82 100 Mechanical Ventilator 35 97.7 06/01/17 07:01 69 16 35 06/01/17 05:14 69 16 35 06/01/17 04:00 35 06/01/17 04:00 98.3 69 18 118/82 100 Mechanical Ventilator 35 98.3 06/01/17 03:27 77 06/01/17 02:39 68 16 35 06/01/17 00:41 77 26 35 06/01/17 00:00 35 06/01/17 00:00 98.2 70 18 122/87 100 Mechanical Ventilator 35 98.2 05/31/17 23:24 68 05/31/17 23:02 67 18 35 05/31/17 21:10 74 26 35 05/31/17 20:00 98.5 64 18 113/78 100 Mechanical Ventilator 35 98.5 05/31/17 20:00 35 05/31/17 19:27 59 18 18:56 72 18 35 05/31/17 17:17 75 26 35 05/31/17 16:31 59 16 35 05/31/17 16:00 35 05/31/17 16:00 97.9 65 18 120/75 100 Mechanical Ventilator 35 97.9 05/31/17 16:00 69 Intake and Output 05/31/17 06/01/17 19:00 07:00 Intake Total 800.000 ml Balance 800.000 ml IV Total 800.000 ml # Voids 2 2 # Bowel Movements 3 Laboratory Tests Test 06/01/17 03:50 White Blood Count 9.4 K/UL (4.8-10.8) Red Blood Count 3.29 M/UL (4.70-6.10) L Hemoglobin 9.0 G/DL (14.2-18.0) L Hematocrit 28.5 % (42.0-52.0) L Mean Corpuscular Volume 86 FL (80-99) Mean Corpuscular Hemoglobin 27.5 PG (27.0-31.0) Mean Corpuscular Hemoglobin Concent 31.8 G/DL (32.0-36.0) L Red Cell Distribution Width 14.3 % (11.6-14.8) Platelet Count 415 K/UL (150-450) Mean Platelet Volume 5.8 FL (6.5-10.1) L Neutrophils (%) (Auto) 48.8 % (45.0-75.0) Lymphocytes (%) (Auto) 29.5 % (20.0-45.0) Monocytes (%) (Auto) 8.5 % (1.0-10.0) Eosinophils (%) (Auto) 12.2 % (0.0-3.0) H Basophils (%) (Auto) 1.0 % (0.0-2.0) Reticulocyte Count 1.1 % (0.0-2.0) Prothrombin Time 10.9 SEC (9.30-11.50) Prothromb Time International Ratio 1.0 (0.9-1.1) Activated Partial Thromboplast Time 26 SEC (23-33) Sodium Level 141 MMOL/L (136-145) Potassium Level 3.1 MMOL/L (3.5-5.1) L Chloride Level 106 MMOL/L (98-107) Carbon Dioxide Level 26 MMOL/L (21-32) Anion Gap 9 mmol/L (5-15) Blood Urea Nitrogen 12 mg/dL (7-18) Creatinine 0.8 MG/DL (0.55-1.30) Estimat Glomerular Filtration Rate > 60 mL/min (>60) Glucose Level 89 MG/DL (74-106) Calcium Level 8.7 MG/DL (8.5-10.1) Phosphorus Level 3.2 MG/DL (2.5-4.9) Magnesium Level 2.0 MG/DL (1.8-2.4) Iron Level 44 ug/dL (50-175) L Total Iron Binding Capacity 244 ug/dL (250-450) L Percent Iron Saturation 18 % (15-50) Unsaturated Iron Binding 200 ug/dL (112-346) Ferritin 326 NG/ML (8-388) Total Bilirubin 0.3 MG/DL (0.2-1.0) Aspartate Amino Transf (AST/SGOT) 24 U/L (15-37) Alanine Aminotransferase (ALT/SGPT) 22 U/L (12-78) Alkaline Phosphatase 86 U/L (46-116) Total Protein 6.9 G/DL (6.4-8.2) Albumin 2.3 G/DL (3.4-5.0) L Globulin 4.6 g/dL Albumin/Globulin Ratio 0.5 (1.0-2.7) L Vitamin B12 Level 834 PG/ML (193-986) Folate 15.2 NG/ML (8.6-58.9) Thyroid Stimulating Hormone (TSH) 2.750 uiU/mL (0.358-3.740) Free Thyroxine 1.11 NG/DL (0.76-1.46) Microbiology Date/Time Source Procedure Growth Status 05/31/17 16:30 Nasopharynx Influenza Types A,B Antigen (GENEVIEVE) - Final Complete Height (Feet): 5 Height (Inches): 6.00 Weight (Pounds): 140 General Appearance: WD/WN, no apparent distress, alert Cardiovascular: normal rate Respiratory/Chest: normal breath sounds, no respiratory distress Abdominal Exam: normal bowel sounds, non tender, soft, GT site - c/d/i Extremities: non-tender Donna Melgar N.P. Jun 01, 2017 13:17
--- NOTE | 2017-06-01 15:20 | Infectious Diseases Prog Note ---
Assessment/Plan Assessment/Plan Abx: IV Vancomycin 05/30- Cefepime 05/29- Assessment: Vomiting Abd distention -CT abd/p: Nonspecific mild prominent fluid-filled small bowel loops in the left upper quadrant. Otherwise no acute process. Gastrostomy, new since prior study 03/17/2017. Small left pleural effusion. Left basilar atelectasis and possible consolidation. Colonic diverticulosis. No evidence of diverticulitis. Other findings as noted, including hepatocolonic interposition, degenerative change of the hips with heterotopic ossification, prominent prostate Probable aspiration pneumonia- -CXR: Left infrahilar infiltrate, also demonstrated on earlier CT scan.Elevated right hemidiaphragm, also previously described -sp cx GNR (id and sensing pendng) -influenza sc neg ?UTI, unable to assess for symptoms -u/a wbc 20-30, nit neg, leuk +3; ucx 30-40k P. mirabilis (R nitrofurantoin, otherewise S), >100K GNB#2 Leukocytosis, resolved Chronic resp failure on Vent/trach 03/20/17 Dysphagia s/p PEG 03/22/17 Recent aerococcus bacteremia 03/2017, s/p Rx -03/03 Bcx 1/ +; 03/06 Neg x4 -Elevated CRp 21.0 03/06; CRP 1.2 03/19 -03/03 TTE: no vegetations, no significant valve abnormalities Recent ESBL E.coli HCAP 02/2017, s/p Rx Osteoarthritis. Hypertension. COPD. History of GERD History of H. pylori in the past Dementia with psychosis Esophagitis (per EGD) Plan: -Continue IV Vancomycin #3 and Cefepime #4 pending cultures (improving on current regimen) -if HD decompensation, switch Cefepime to Meropenem -may d/c IV Vancomycin in next 24hrs if not MRSA growth 03/22 SP Ancef x1 (periop) 03/21 SP Meropenem #14 03/20 SP IV Vanco #10 03/15 SP Dapto x1 03/08 SP vancomycin d# 5 03/07 SP Zosyn d# 4 -f/u cx -Monitor CBC/CMP, temperatures -trach/peg care -aspiration precautions Thank you for this consultation. Will continue to follow along with you. Discussed with RN. Subjective Allergies: Coded Allergies: No Known Allergies (Unverified , 10/20/16) Objective Vital Signs Last 24 Hour Vital Signs Date Time Temp Pulse Resp B/P (MAP) Pulse Ox O2 Delivery O2 Flow Rate FiO2 06/01/17 14:59 62 18 35 06/01/17 13:01 65 19 35 06/01/17 12:09 35 06/01/17 12:00 61 06/01/17 12:00 97.9 74 24 154/76 100 Mechanical Ventilator 35 97.9 06/01/17 11:04 64 17 35 06/01/17 09:17 55 17 35 06/01/17 08:00 69 06/01/17 08:00 35 06/01/17 08:00 97.7 73 24 98/82 100 Mechanical Ventilator 35 97.7 06/01/17 07:01 69 16 35 06/01/17 05:14 69 16 35 06/01/17 04:00 35 06/01/17 04:00 98.3 69 18 118/82 100 Mechanical Ventilator 35 98.3 06/01/17 03:27 77 06/01/17 02:39 68 16 35 06/01/17 00:41 77 26 35 06/01/17 00:00 35 06/01/17 00:00 98.2 70 18 122/87 100 Mechanical Ventilator 35 98.2 05/31/17 23:24 68 05/31/17 23:02 67 18 35 05/31/17 21:10 74 26 35 05/31/17 20:00 98.5 64 18 113/78 100 Mechanical Ventilator 35 98.5 05/31/17 20:00 35 05/31/17 19:27 59 05/31/17 18:56 72 18 35 05/31/17 17:17 75 26 35 05/31/17 16:31 59 16 35 05/31/17 16:00 35 05/31/17 16:00 97.9 65 18 120/75 100 Mechanical Ventilator 35 97.9 05/31/17 16:00 69 Height (Feet): 5 Height (Inches): 6.00 Weight (Pounds): 140 Objective General Appearance: no apparent distress, alert Head: normocephalic EENT: normal ENT inspection Neck: supple Respiratory: normal breath sounds, other - mech vent Cardiovascular: normal rate Gastrointestinal: gt - c/d/i Rectal: deferred Genitourinary: no CVA tenderness Skin: normal inspection, normal color, no rash, warm/dry Lymphatic: normal inspection, no adenopathy Microbiology Date/Time Source Procedure Growth Status 05/29/17 22:35 Blood Blood Culture - Preliminary NO GROWTH AFTER 48 HOURS Resulted 05/29/17 22:30 Blood Blood Culture - Preliminary NO GROWTH AFTER 48 HOURS Resulted 05/31/17 16:30 Nasopharynx Influenza Types A,B Antigen (GENEVIEVE) - Final Complete 05/30/17 08:40 Sputum Gram Stain - Final Resulted 05/30/17 08:40 Sputum Culture - Preliminary Gram Negative Bacillus 1 Resulted 05/30/17 01:00 Nasal Nares MRSA Culture - Final NO METHICILLIN RESISTANT STAPH AUREUS... Complete 05/29/17 22:50 Urine,Clean Catch Urine Culture - Preliminary Proteus Mirabilis Gram Negative Bacillus 2 Resulted 05/30/17 01:00 Rectum VRE Culture - Final Enterococcus Faecalis - Vre Complete Laboratory Tests Test 06/01/17 03:50 White Blood Count 9.4 K/UL (4.8-10.8) Red Blood Count 3.29 M/UL (4.70-6.10) L Hemoglobin 9.0 G/DL (14.2-18.0) L Hematocrit 28.5 % (42.0-52.0) L Mean Corpuscular Volume 86 FL (80-99) Mean Corpuscular Hemoglobin 27.5 PG (27.0-31.0) Mean Corpuscular Hemoglobin Concent 31.8 G/DL (32.0-36.0) L Red Cell Distribution Width 14.3 % (11.6-14.8) Platelet Count 415 K/UL (150-450) Mean Platelet Volume 5.8 FL (6.5-10.1) L Neutrophils (%) (Auto) 48.8 % (45.0-75.0) Lymphocytes (%) (Auto) 29.5 % (20.0-45.0) Monocytes (%) (Auto) 8.5 % (1.0-10.0) Eosinophils (%) (Auto) 12.2 % (0.0-3.0) H Basophils (%) (Auto) 1.0 % (0.0-2.0) Reticulocyte Count 1.1 % (0.0-2.0) Prothrombin Time 10.9 SEC (9.30-11.50) Prothromb Time International Ratio 1.0 (0.9-1.1) Activated Partial Thromboplast Time 26 SEC (23-33) Sodium Level 141 MMOL/L (136-145) Potassium Level 3.1 MMOL/L (3.5-5.1) L Chloride Level 106 MMOL/L (98-107) Carbon Dioxide Level 26 MMOL/L (21-32) Anion Gap 9 mmol/L (5-15) Blood Urea Nitrogen 12 mg/dL (7-18) Creatinine 0.8 MG/DL (0.55-1.30) Estimat Glomerular Filtration Rate > 60 mL/min (>60) Glucose Level 89 MG/DL (74-106) Calcium Level 8.7 MG/DL (8.5-10.1) Phosphorus Level 3.2 MG/DL (2.5-4.9) Magnesium Level 2.0 MG/DL (1.8-2.4) Iron Level 44 ug/dL (50-175) L Total Iron Binding Capacity 244 ug/dL (250-450) L Percent Iron Saturation 18 % (15-50) Unsaturated Iron Binding 200 ug/dL (112-346) Ferritin 326 NG/ML (8-388) Total Bilirubin 0.3 MG/DL (0.2-1.0) Aspartate Amino Transf (AST/SGOT) 24 U/L (15-37) Alanine Aminotransferase (ALT/SGPT) 22 U/L (12-78) Alkaline Phosphatase 86 U/L (46-116) Total Protein 6.9 G/DL (6.4-8.2) Albumin 2.3 G/DL (3.4-5.0) L Globulin 4.6 g/dL Albumin/Globulin Ratio 0.5 (1.0-2.7) L Vitamin B12 Level 834 PG/ML (193-986) Folate 15.2 NG/ML (8.6-58.9) Thyroid Stimulating Hormone (TSH) 2.750 uiU/mL (0.358-3.740) Free Thyroxine 1.11 NG/DL (0.76-1.46) Current Medications Medications (Trade) Dose Ordered Sig/Ant Route PRN Reason Start Time Stop Time Status Last Admin Dose Admin Acetaminophen (Tylenol) 650 mg Q4H PRN ORAL FEVER (temp>100.5F) 05/30/17 08:30 06/29/17 08:29 Albuterol/ Ipratropium (Albuterol/ Ipratropium) 3 ml Q4H PRN HHN Shortness of Breath 05/30/17 08:30 06/04/17 08:29 Cefepime HCl 1 gm/ Sodium Chloride 55 ml @ 110 mls/hr Q12HR@0400,1600 IVPB 05/31/17 16:00 06/07/17 15:59 06/01/17 04:22 Dextrose (Dextrose 50%) STAT PRN IV Hypoglycemia 05/30/17 08:30 06/29/17 08:29 Dextrose/Sodium Chloride 1,000 ml @ 50 mls/hr Q20H IV 05/30/17 12:30 06/29/17 12:29 06/01/17 04:22 Lorazepam (Ativan 2mg/ml 1ml) 2 mg Q2H PRN IV For Anxiety 05/30/17 08:30 06/06/17 08:29 Morphine Sulfate (Morphine Sulfate) 4 mg Q4H PRN IVP Severe Pain (Pain Scale 7-10) 05/30/17 08:30 06/06/17 08:29 Ondansetron HCl (Zofran) 4 mg Q6H PRN IVP Nausea & Vomiting 05/30/17 08:30 06/29/17 08:29 Pantoprazole (Protonix) 40 mg BID IV 05/31/17 18:00 06/30/17 17:59 06/01/17 08:53 Polyethylene Glycol (Miralax) 17 gm DAILYPRN PRN ORAL Constipation 05/30/17 08:30 06/29/17 08:29 Vancomycin HCl (Vanco rx to dose) 1 ea DAILY PRN MISC per RX protocol 05/30/17 09:00 06/29/17 08:59 Vancomycin HCl 1 gm/Dextrose 275 ml @ 183.3 mls/ hr Q24H IVPB 05/30/17 10:00 06/04/17 09:59 06/01/17 09:56 Vitamin A/Vitamin D (A & D Oint) 1 applic EVERY 12 HOURS TOPIC 05/30/17 09:00 06/29/17 08:59 06/01/17 08:53 Alise Polanco M.D. Jun 01, 2017 15:20
[2017-06-01 16:00] VITALS: BP 158/94
--- NOTE | 2017-06-01 18:42 | Cardiology Report ---
APPROVED REPORT EKG Measurement Heart [id number] 128P [id number] Sinus tachycardia Otherwise normal ECG
--- NOTE | 2017-06-01 19:22 | Pulmonolgy Critical Care Note ---
Critical Care - Asmt/Plan Problems: (1) Acute on chronic respiratory failure (2) Sepsis (3) UTI (urinary tract infection) (4) Acute renal failure (5) COPD (chronic obstructive pulmonary disease) (6) Feeding by G-tube (7) Alzheimer disease Respiratory: monitor respiratory rate, CXR Cardiac: continue to monitor HR/BP Renal: F/U I&O, keep IV fluid Infectious Disease: check cultures Gastrointestinal: continue feedings/current rate Endocrine: monitor blood sugar, continue sliding scale insulin Hematologic: transfuse if hgb<8.5 Neurologic: PRN Ativan, PRN Morphine, keep patient comfortable Prophylaxis: Protonix Notes Reviewed: renal Discussed with: consultants Critical Care - Objective Last 24 Hour Vital Signs Date Time Temp Pulse Resp B/P (MAP) Pulse Ox O2 Delivery O2 Flow Rate FiO2 06/01/17 18:46 74 27 35 06/01/17 17:02 64 19 35 06/01/17 16:00 97.2 71 20 158/94 100 Mechanical Ventilator 35 97.2 06/01/17 16:00 54 06/01/17 16:00 35 06/01/17 14:59 62 18 35 06/01/17 13:01 65 19 35 06/01/17 12:09 35 06/01/17 12:00 61 06/01/17 12:00 97.9 74 24 154/76 100 Mechanical Ventilator 35 97.9 06/01/17 11:04 64 17 35 06/01/17 09:17 55 17 35 06/01/17 08:00 69 06/01/17 08:00 35 06/01/17 08:00 97.7 73 24 98/82 100 Mechanical Ventilator 35 97.7 06/01/17 07:01 69 16 35 06/01/17 05:14 69 16 35 06/01/17 04:00 35 06/01/17 04:00 98.3 69 18 118/82 100 Mechanical Ventilator 35 98.3 06/01/17 03:27 77 06/01/17 02:39 68 16 35 06/01/17 00:41 77 26 35 06/01/17 00:00 35 06/01/17 00:00 98.2 70 18 122/87 100 Mechanical Ventilator 35 98.2 05/31/17 23:24 68 05/31/17 23:02 67 18 35 05/31/17 21:10 74 26 35 05/31/17 20:00 98.5 64 18 113/78 100 Mechanical Ventilator 35 98.5 05/31/17 20:00 35 05/31/17 19:27 59 Status: sedated Condition: critical Neck: trach Lungs: clear Heart: HR/BP stable, regular Abdomen: non-tender Extremities: edema Micro: Microbiology Date/Time Source Procedure Growth Status 05/29/17 22:35 Blood Blood Culture - Preliminary NO GROWTH AFTER 48 HOURS Resulted 05/29/17 22:30 Blood Blood Culture - Preliminary NO GROWTH AFTER 48 HOURS Resulted 05/31/17 16:30 Nasopharynx Influenza Types A,B Antigen (GENEVIEVE) - Final Complete 05/30/17 08:40 Sputum Gram Stain - Final Resulted 05/30/17 08:40 Sputum Culture - Preliminary Gram Negative Bacillus 1 Resulted 05/30/17 01:00 Nasal Nares MRSA Culture - Final NO METHICILLIN RESISTANT STAPH AUREUS... Complete 05/29/17 22:50 Urine,Clean Catch Urine Culture - Preliminary Proteus Mirabilis Gram Negative Bacillus 2 Resulted 05/30/17 01:00 Rectum VRE Culture - Final Enterococcus Faecalis - Vre Complete Accucheck: 121 Critical Care - Subjective ROS Limited/Unobtainable: Yes IV Access: PICC EKG Rhythm: Sinus Rhythm FI02: 35 Vent Support Breath Rate: 16 Vent Support Mode: AC Vent Tidal Volume: 450 Sputum Amount: Small PEEP: 5.0 PIP: 25 I&O: Intake and Output 05/31/17 06/01/17 19:00 07:00 Intake Total 800.000 ml Balance 800.000 ml IV Total 800.000 ml # Voids 2 2 # Bowel Movements 3 CXR: no chages Labs: Laboratory Tests Test 06/01/17 03:50 White Blood Count 9.4 K/UL (4.8-10.8) Red Blood Count 3.29 M/UL (4.70-6.10) L Hemoglobin 9.0 G/DL (14.2-18.0) L Hematocrit 28.5 % (42.0-52.0) L Mean Corpuscular Volume 86 FL (80-99) Mean Corpuscular Hemoglobin 27.5 PG (27.0-31.0) Mean Corpuscular Hemoglobin Concent 31.8 G/DL (32.0-36.0) L Red Cell Distribution Width 14.3 % (11.6-14.8) Platelet Count 415 K/UL (150-450) Mean Platelet Volume 5.8 FL (6.5-10.1) L Neutrophils (%) (Auto) 48.8 % (45.0-75.0) Lymphocytes (%) (Auto) 29.5 % (20.0-45.0) Monocytes (%) (Auto) 8.5 % (1.0-10.0) Eosinophils (%) (Auto) 12.2 % (0.0-3.0) H Basophils (%) (Auto) 1.0 % (0.0-2.0) Reticulocyte Count 1.1 % (0.0-2.0) Prothrombin Time 10.9 SEC (9.30-11.50) Prothromb Time International Ratio 1.0 (0.9-1.1) Activated Partial Thromboplast Time 26 SEC (23-33) Sodium Level 141 MMOL/L (136-145) Potassium Level 3.1 MMOL/L (3.5-5.1) L Chloride Level 106 MMOL/L (98-107) Carbon Dioxide Level 26 MMOL/L (21-32) Anion Gap 9 mmol/L (5-15) Blood Urea Nitrogen 12 mg/dL (7-18) Creatinine 0.8 MG/DL (0.55-1.30) Estimat Glomerular Filtration Rate > 60 mL/min (>60) Glucose Level 89 MG/DL (74-106) Calcium Level 8.7 MG/DL (8.5-10.1) Phosphorus Level 3.2 MG/DL (2.5-4.9) Magnesium Level 2.0 MG/DL (1.8-2.4) Iron Level 44 ug/dL (50-175) L Total Iron Binding Capacity 244 ug/dL (250-450) L Percent Iron Saturation 18 % (15-50) Unsaturated Iron Binding 200 ug/dL (112-346) Ferritin 326 NG/ML (8-388) Total Bilirubin 0.3 MG/DL (0.2-1.0) Aspartate Amino Transf (AST/SGOT) 24 U/L (15-37) Alanine Aminotransferase (ALT/SGPT) 22 U/L (12-78) Alkaline Phosphatase 86 U/L (46-116) Total Protein 6.9 G/DL (6.4-8.2) Albumin 2.3 G/DL (3.4-5.0) L Globulin 4.6 g/dL Albumin/Globulin Ratio 0.5 (1.0-2.7) L Vitamin B12 Level 834 PG/ML (193-986) Folate 15.2 NG/ML (8.6-58.9) Thyroid Stimulating Hormone (TSH) 2.750 uiU/mL (0.358-3.740) Free Thyroxine 1.11 NG/DL (0.76-1.46) Rocio Uriarte MD Jun 01, 2017 19:22
[2017-06-01 20:00] VITALS: BP 132/59
[2017-06-02] VITALS: BP 132/90
[2017-06-02] MEDS: D5 1/2NS 1,000 ML IV SCH (01:12)
[2017-06-02 04:00] VITALS: BP 115/62
[2017-06-02] MEDS: Cefepime HCl 1 GM in NS 55 ML IVPB SCH (04:29)
--- NOTE | 2017-06-02 06:54 | Anethesia Preoperative Eval ---
Anesthesia Pre-op PMH/ROS General Date of Evaluation: Jun 02, 2017 Time of Evaluation: 06:50 Anesthesiologist: jace ASA Score: ASA 4 Mallampati Score Class I : Soft palate, uvula, fauces, pillars visible Class II: Soft palate, uvula, fauces visible Class III: Soft palate, base of uvula visible Class IV: Only hard plate visible Mallampati Classification: Class II Surgeon: anahi Diagnosis: anemia Surgical Procedure: egd Anesthesia History: none Social History: drug use Family History: no anesthesia problems Allergies: Coded Allergies: No Known Allergies (Unverified , 10/20/16) Medications: see eMAR Past Medical History Cardiovascular: Reports: HTN Pulmonary: Reports: COPD, other - traceostomy, oxygen dependenet Gastrointestinal/Genitourinary: Reports: other - uti, peg, gibleed, esophagitis ,, dialysis, acute renal failure Neurologic/Psychiatric: Reports: dementia, CVA Hematology/Immune: Reports: anemia Musculoskeletal/Integumentary: Reports: OA, other - contractures Anesthesia Pre-op Phys. Exam Physician Exam Last Vital Signs Date Time Temp Pulse Resp B/P (MAP) Pulse Ox O2 Delivery O2 Flow Rate FiO2 06/02/17 04:53 59 20 35 06/02/17 04:00 98.5 115/62 100 Mechanical Ventilator 98.5 05/29/17 22:13 4.0 Constitutional: NAD Neurologic: other Cardiovascular: RRR Respiratory: other - tracheostomy Gastrointestinal: S/NT/ND Airway Exam Mallampati Score: Class II MO: limited Neck: tracheostomy TMD: 2fb ROM: limited Anesthesia Pre-op A/P Labs Labs Test 05/31/17 04:15 06/01/17 03:50 06/02/17 06:05 06/02/17 09:15 White Blood Count 8.5 K/UL (4.8-10.8) 9.4 K/UL (4.8-10.8) 8.6 K/UL (4.8-10.8) Red Blood Count 3.23 M/UL (4.70-6.10) 3.29 M/UL (4.70-6.10) 3.40 M/UL (4.70-6.10) Hemoglobin 8.9 G/DL (14.2-18.0) 9.0 G/DL (14.2-18.0) 9.4 G/DL (14.2-18.0) Hematocrit 28.1 % (42.0-52.0) 28.5 % (42.0-52.0) 29.5 % (42.0-52.0) Mean Corpuscular Volume 87 FL (80-99) 86 FL (80-99) 87 FL (80-99) Mean Corpuscular Hemoglobin 27.5 PG (27.0-31.0) 27.5 PG (27.0-31.0) 27.5 PG (27.0-31.0) Mean Corpuscular Hemoglobin Concent 31.6 G/DL (32.0-36.0) 31.8 G/DL (32.0-36.0) 31.7 G/DL (32.0-36.0) Red Cell Distribution Width 14.2 % (11.6-14.8) 14.3 % (11.6-14.8) 14.5 % (11.6-14.8) Platelet Count 413 K/UL (150-450) 415 K/UL (150-450) 396 K/UL (150-450) Mean Platelet Volume 5.8 FL (6.5-10.1) 5.8 FL (6.5-10.1) 5.9 FL (6.5-10.1) Neutrophils (%) (Auto) 44.4 % (45.0-75.0) 48.8 % (45.0-75.0) 44.5 % (45.0-75.0) Lymphocytes (%) (Auto) 33.3 % (20.0-45.0) 29.5 % (20.0-45.0) 32.2 % (20.0-45.0) Monocytes (%) (Auto) 11.5 % (1.0-10.0) 8.5 % (1.0-10.0) 9.6 % (1.0-10.0) Eosinophils (%) (Auto) 9.7 % (0.0-3.0) 12.2 % (0.0-3.0) 12.9 % (0.0-3.0) Basophils (%) (Auto) 1.2 % (0.0-2.0) 1.0 % (0.0-2.0) 0.9 % (0.0-2.0) Sodium Level 142 MMOL/L (136-145) 141 MMOL/L (136-145) 140 MMOL/L (136-145) Potassium Level 4.0 MMOL/L (3.5-5.1) 3.1 MMOL/L (3.5-5.1) 3.4 MMOL/L (3.5-5.1) Chloride Level 108 MMOL/L (98-107) 106 MMOL/L (98-107) 107 MMOL/L (98-107) Carbon Dioxide Level 25 MMOL/L (21-32) 26 MMOL/L (21-32) 25 MMOL/L (21-32) Anion Gap 9 mmol/L (5-15) 9 mmol/L (5-15) 8 mmol/L (5-15) Blood Urea Nitrogen 14 mg/dL (7-18) 12 mg/dL (7-18) 8 mg/dL (7-18) Creatinine 0.6 MG/DL (0.55-1.30) 0.8 MG/DL (0.55-1.30) 0.8 MG/DL (0.55-1.30) Estimat Glomerular Filtration Rate > 60 mL/min (>60) > 60 mL/min (>60) > 60 mL/min (>60) Glucose Level 90 MG/DL (74-106) 89 MG/DL (74-106) 85 MG/DL (74-106) Calcium Level 8.4 MG/DL (8.5-10.1) 8.7 MG/DL (8.5-10.1) 8.8 MG/DL (8.5-10.1) Phosphorus Level 3.1 MG/DL (2.5-4.9) 3.2 MG/DL (2.5-4.9) Total Bilirubin 0.4 MG/DL (0.2-1.0) 0.3 MG/DL (0.2-1.0) Aspartate Amino Transf (AST/SGOT) 34 U/L (15-37) 24 U/L (15-37) Alanine Aminotransferase (ALT/SGPT) 22 U/L (12-78) 22 U/L (12-78) Alkaline Phosphatase 86 U/L (46-116) 86 U/L (46-116) Pro-B-Type Natriuretic Peptide 140 pg/mL (0-125) Total Protein 6.5 G/DL (6.4-8.2) 6.9 G/DL (6.4-8.2) Albumin 2.2 G/DL (3.4-5.0) 2.3 G/DL (3.4-5.0) Globulin 4.3 g/dL 4.6 g/dL Albumin/Globulin Ratio 0.5 (1.0-2.7) 0.5 (1.0-2.7) Reticulocyte Count 1.1 % (0.0-2.0) Prothrombin Time 10.9 SEC (9.30-11.50) 11.2 SEC (9.30-11.50) Prothromb Time International Ratio 1.0 (0.9-1.1) 1.1 (0.9-1.1) Activated Partial Thromboplast Time 26 SEC (23-33) 27 SEC (23-33) Magnesium Level 2.0 MG/DL (1.8-2.4) Iron Level 44 ug/dL (50-175) Total Iron Binding Capacity 244 ug/dL (250-450) Percent Iron Saturation 18 % (15-50) Unsaturated Iron Binding 200 ug/dL (112-346) Ferritin 326 NG/ML (8-388) Vitamin B12 Level 834 PG/ML (193-986) Folate 15.2 NG/ML (8.6-58.9) Thyroid Stimulating Hormone (TSH) 2.750 uiU/mL (0.358-3.740) Free Thyroxine 1.11 NG/DL (0.76-1.46) Vancomycin Level Trough 6.5 ug/mL (5.0-12.0) Risk Assessment & Plan Assessment: asa4 Plan: mac Status Change Before Surgery: No Pre-Antibiotics Drug: YESSI Medellin Jun 02, 2017 06:54
[2017-06-02] MEDS ORDERED: Midazolam 2mg/2ml Inj IVP PRN ×2 (07:00)
[2017-06-02] MEDS ORDERED: fentaNYL 100 mcg/2 mL IV PRN ×2 (07:00)
[2017-06-02] MEDS ORDERED: DiphenhydrAMINE 50mg/ml Inj IVP PRN ×2 (07:00)
[2017-06-02] MEDS ORDERED: Atropine Inj 1mg/10ml Syr IV PRN ×2 (07:00)
[2017-06-02 07:48] LABS: BASOPHILS % (AUTO) 0.9 % (0.0-2.0); EOSINOPHILS % (AUTO) 12.9 % (0.0-3.0); HEMATOCRIT 29.5 % (42.0-52.0); HEMOGLOBIN 9.4 G/DL (14.2-18.0); LYMPHOCYTES % (AUTO) 32.2 % (20.0-45.0); MEAN CORPUSCULAR VOLUME 87 FL (80-99); MONOCYTES % (AUTO) 9.6 % (1.0-10.0); NEUTROPHILS % (AUTO) 44.5 % (45.0-75.0); PLATELET COUNT 396 K/UL (150-450); RED CELL DISTRIBUTION WIDTH 14.5 % (11.6-14.8); WHITE BLOOD COUNT 8.6 K/UL (4.8-10.8)
[2017-06-02 07:53] LABS: ANION GAP 8 mmol/L (5-15); BLOOD UREA NITROGEN 8 mg/dL (7-18); CALCIUM 8.8 MG/DL (8.5-10.1); CARBON DIOXIDE 25 MMOL/L (21-32); CHLORIDE 107 MMOL/L (98-107); CREATININE 0.8 MG/DL (0.55-1.30); POTASSIUM 3.4 MMOL/L (3.5-5.1); SODIUM 140 MMOL/L (136-145)
[2017-06-02 07:54] LABS: INR 1.1 (0.9-1.1)
[2017-06-02 08:00] VITALS: BP 96/71
--- NOTE | 2017-06-02 08:36 | General Progress Note ---
Assessment/Plan Problem List: (1) Coffee ground emesis ICD Codes: K92.0 - Hematemesis SNOMED: 51438377, [id number] (2) Anemia ICD Codes: D64.9 - Anemia, unspecified SNOMED: 070548406 (3) Esophagitis ICD Codes: K20.9 - Esophagitis, unspecified SNOMED: 26480150 Assessment/Plan needs EGD for GIB no family available to sign the consent will prosed with MD consent given sig drop in H&H from the baseline and active bleed Subjective ROS Limited/Unobtainable: No Allergies: Coded Allergies: No Known Allergies (Unverified , 10/20/16) Objective Last 24 Hour Vital Signs Date Time Temp Pulse Resp B/P (MAP) Pulse Ox O2 Delivery O2 Flow Rate FiO2 06/02/17 07:17 56 17 30 06/02/17 04:53 59 20 35 06/02/17 04:00 59 06/02/17 04:00 35 06/02/17 04:00 98.5 63 20 115/62 100 Mechanical Ventilator 35 98.5 06/02/17 02:33 59 17 35 06/02/17 00:49 59 19 35 06/02/17 00:26 72 06/02/17 00:00 97.9 61 20 132/90 100 Mechanical Ventilator 35 97.9 06/02/17 00:00 35 06/01/17 23:23 61 19 35 06/01/17 21:36 61 28 35 06/01/17 20:00 98.5 58 17 132/59 100 Mechanical Ventilator 35 98.5 06/01/17 20:00 35 06/01/17 19:43 60 06/01/17 18:46 74 27 35 06/01/17 17:02 64 19 35 06/01/17 16:00 97.2 71 20 158/94 100 Mechanical Ventilator 35 97.2 06/01/17 16:00 54 06/01/17 16:00 35 06/01/17 14:59 62 18 35 06/01/17 13:01 65 19 35 06/01/17 12:09 35 06/01/17 12:00 61 06/01/17 12:00 97.9 74 24 154/76 100 Mechanical Ventilator 35 97.9 06/01/17 11:04 64 17 35 06/01/17 09:17 55 17 35 Intake and Output 06/01/17 06/02/17 19:00 07:00 Output Total 360 ml Balance -360 ml Output Urine Total 360 ml # Voids 3 Laboratory Tests 06/02/17 06:05: White Blood Count 8.6, Red Blood Count 3.40L, Hemoglobin 9.4L, Hematocrit 29.5L , Mean Corpuscular Volume 87, Mean Corpuscular Hemoglobin 27.5, Mean Corpuscular Hemoglobin Concent 31.7L, Red Cell Distribution Width 14.5, Platelet Count 396, Mean Platelet Volume 5.9L, Neutrophils (%) (Auto) 44.5L, Lymphocytes (%) (Auto) 32.2, Monocytes (%) (Auto) 9.6, Eosinophils (%) (Auto) 12.9H, Basophils (%) (Auto) 0.9, Prothrombin Time 11.2, Prothromb Time International Ratio 1.1, Activated Partial Thromboplast Time 27, Sodium Level 140, Potassium Level 3.4L, Chloride Level 107, Carbon Dioxide Level 25, Anion Gap 8, Blood Urea Nitrogen 8, Creatinine 0.8, Estimat Glomerular Filtration Rate > 60, Glucose Level 85, Calcium Level 8.8 Height (Feet): 5 Height (Inches): 6.00 Weight (Pounds): 149 General Appearance: no apparent distress EENT: normal ENT inspection Neck: supple Cardiovascular: normal rate Respiratory/Chest: decreased breath sounds Abdomen: normal bowel sounds, non tender, soft Extremities: non-tender TIMMY GARNER Jun 02, 2017 08:35
[2017-06-02] MEDS: Vitamin A&D Oint 2oz Tube TOPIC SCH (09:40)
[2017-06-02] MEDS: Pantoprazole Inj IV SCH ×2 (09:40→18:18)
--- NOTE | 2017-06-02 10:04 | Pre-Procedure Note/Attestation ---
Pre-Procedure Note/Attestation Complete Prior to Procedure Planned Procedure: not applicable Procedure Narrative: egd Indications for Procedure Pre-Operative Diagnosis: gib Attestation I attest that I discussed the nature of the procedure; its benefits; risks and complications; and alternatives (and the risks and benefits of such alternatives ), prior to the procedure, with the patient (or the patient's legal visitor services representative). I attest that, if there was a reasonable possibility of needing a blood transfusion, the patient (or the patient's legal visitor services representative) was given the [facility] standardized written summary, pursuant to the [place] Blood Safety Act ([place] Health and Safety Code # 1645, as amended). I attest that I re-evaluated the patient just prior to the surgery and that there has been no change in the patient's H&P, except as documented below: TIMMY GARNER Jun 02, 2017 10:04
--- NOTE | 2017-06-02 10:18 | Endoscopy Procedure Note ---
Endoscopy Procedure Note General Indication for Procedure: gib Procedures Performed: EGD Operative Findings/Diagnosis: gastritis Specimen: yes Pt Tolerated Procedure Well: Yes Estimated Blood Loss: none Anesthesia Anesthesiologist: osorio Anesthesia: MAC Inserted Devices Implant(s) used?: No GI Core Measures 50 yrs or older w/o bx or poly: Not Applicable 10yrs. F/U not recommended: Not Applicable TIMMY GARNER Jun 02, 2017 10:18
[2017-06-02] MEDS: Vancomycin 1 GM in D5W 275 ML IVPB SCH (11:47)
[2017-06-02 12:00] VITALS: BP 88/51
--- NOTE | 2017-06-02 12:04 | General Surgery Progress Note ---
General Surgery-Progress Note Subjective Additional Comments no acute events. having BM's and passing flatus. Objective Last 24 Hour Vital Signs Date Time Temp Pulse Resp B/P (MAP) Pulse Ox O2 Delivery O2 Flow Rate FiO2 06/02/17 11:14 79 22 30 06/02/17 09:03 68 20 30 06/02/17 08:00 35 06/02/17 08:00 60 06/02/17 08:00 97.2 72 24 96/71 100 Mechanical Ventilator 30 97.2 72 06/02/17 07:17 56 17 30 06/02/17 04:53 59 20 35 06/02/17 04:00 59 06/02/17 04:00 35 06/02/17 04:00 98.5 63 20 115/62 100 Mechanical Ventilator 35 98.5 06/02/17 02:33 59 17 35 06/02/17 00:49 59 19 35 06/02/17 00:26 72 06/02/17 00:00 97.9 61 20 132/90 100 Mechanical Ventilator 35 97.9 06/02/17 00:00 35 06/01/17 23:23 61 19 35 06/01/17 21:36 61 28 35 06/01/17 20:00 98.5 58 17 132/59 100 Mechanical Ventilator 35 98.5 06/01/17 20:00 35 06/01/17 19:43 60 06/01/17 18:46 74 27 35 06/01/17 17:02 64 19 35 06/01/17 16:00 97.2 71 20 158/94 100 Mechanical Ventilator 35 97.2 06/01/17 16:00 54 06/01/17 16:00 35 06/01/17 14:59 62 18 35 06/01/17 13:01 65 19 35 06/01/17 12:09 35 I&O Intake and Output 06/01/17 06/02/17 19:00 07:00 Output Total 360 ml Balance -360 ml Output Urine Total 360 ml # Voids 3 Cardiovascular: RSR Respiratory: decreased breath sounds Abdomen: soft, flat, present bowel sounds Extremities: no cyanosis Laboratory Tests Test 06/02/17 06:05 06/02/17 09:15 White Blood Count 8.6 K/UL (4.8-10.8) Red Blood Count 3.40 M/UL (4.70-6.10) L Hemoglobin 9.4 G/DL (14.2-18.0) L Hematocrit 29.5 % (42.0-52.0) L Mean Corpuscular Volume 87 FL (80-99) Mean Corpuscular Hemoglobin 27.5 PG (27.0-31.0) Mean Corpuscular Hemoglobin Concent 31.7 G/DL (32.0-36.0) L Red Cell Distribution Width 14.5 % (11.6-14.8) Platelet Count 396 K/UL (150-450) Mean Platelet Volume 5.9 FL (6.5-10.1) L Neutrophils (%) (Auto) 44.5 % (45.0-75.0) L Lymphocytes (%) (Auto) 32.2 % (20.0-45.0) Monocytes (%) (Auto) 9.6 % (1.0-10.0) Eosinophils (%) (Auto) 12.9 % (0.0-3.0) H Basophils (%) (Auto) 0.9 % (0.0-2.0) Prothrombin Time 11.2 SEC (9.30-11.50) Prothromb Time International Ratio 1.1 (0.9-1.1) Activated Partial Thromboplast Time 27 SEC (23-33) Sodium Level 140 MMOL/L (136-145) Potassium Level 3.4 MMOL/L (3.5-5.1) L Chloride Level 107 MMOL/L (98-107) Carbon Dioxide Level 25 MMOL/L (21-32) Anion Gap 8 mmol/L (5-15) Blood Urea Nitrogen 8 mg/dL (7-18) Creatinine 0.8 MG/DL (0.55-1.30) Estimat Glomerular Filtration Rate > 60 mL/min (>60) Glucose Level 85 MG/DL (74-106) Calcium Level 8.8 MG/DL (8.5-10.1) Vancomycin Level Trough 6.5 ug/mL (5.0-12.0) Plan Problems: (1) Sepsis Assessment & Plan: CT FINDINGS Impression: Nonspecific mild prominent fluid- filled small bowel loops in the left upper quadrant. Otherwise no acute process Gastrostomy, new since prior study 03/17/2017 Small left pleural effusion. Left basilar atelectasis and possible consolidation Colonic diverticulosis. No evidence of diverticulitis Other findings as noted, including hepatocolonic interposition, degenerative change of the hips with heterotopic ossification, prominent prostate Abdominal exam benign. abd soft, nt/nd, bs+. CT reviewed and non specific findings. Since no emesis. passing flatus and having BM's -No significant abdominal pathology noted. can monitor for now. -feeds as tolerated -no surgical intervention necessary at this time. thank you Trent Livingston Jun 02, 2017 12:04
--- NOTE | 2017-06-02 12:54 | Pulmonolgy Critical Care Note ---
Critical Care - Asmt/Plan Problems: (1) Acute on chronic respiratory failure (2) Sepsis (3) UTI (urinary tract infection) (4) Acute renal failure (5) COPD (chronic obstructive pulmonary disease) (6) Feeding by G-tube (7) Alzheimer disease Respiratory: monitor respiratory rate, adjust FIO2, CXR Cardiac: continue to monitor HR/BP Renal: F/U I&O, keep IV fluid Infectious Disease: check cultures Gastrointestinal: continue feedings/current rate Endocrine: monitor blood sugar, check TSH, check HgA1C, continue sliding scale insulin Hematologic: monitor H/H, transfuse if hgb<8.5 Neurologic: PRN Ativan, PRN Morphine, keep patient comfortable Affect: PRN ativan Prophylaxis: Protonix Notes 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, 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 Discussed with: nurses, consultants, piano case makermanager activities - Objective Last 24 Hour Vital Signs Date Time Temp Pulse Resp B/P (MAP) Pulse Ox O2 Delivery O2 Flow Rate FiO2 06/02/17 12:00 30 06/02/17 12:00 97.5 66 18 88/51 100 Mechanical Ventilator 30 97.5 66 06/02/17 12:00 60 06/02/17 11:14 79 22 30 06/02/17 09:03 68 20 30 06/02/17 08:00 35 06/02/17 08:00 60 06/02/17 08:00 97.2 72 24 96/71 100 Mechanical Ventilator 30 97.2 72 06/02/17 07:17 56 17 30 06/02/17 04:53 59 20 35 06/02/17 04:00 59 06/02/17 04:00 35 06/02/17 04:00 98.5 63 20 115/62 100 Mechanical Ventilator 35 98.5 06/02/17 02:33 59 17 35 06/02/17 00:49 59 19 35 06/02/17 00:26 72 06/02/17 00:00 97.9 61 20 132/90 100 Mechanical Ventilator 35 97.9 06/02/17 00:00 35 06/01/17 23:23 61 19 35 06/01/17 21:36 61 28 35 06/01/17 20:00 98.5 58 17 132/59 100 Mechanical Ventilator 35 98.5 06/01/17 20:00 35 06/01/17 19:43 60 06/01/17 18:46 74 27 35 06/01/17 17:02 64 19 35 06/01/17 16:00 97.2 71 20 158/94 100 Mechanical Ventilator 35 97.2 06/01/17 16:00 54 06/01/17 16:00 35 06/01/17 14:59 62 18 35 06/01/17 13:01 65 19 35 Status: sedated HEENT: atraumatic Neck: full ROM Lungs: clear Heart: HR/BP stable, HR/BP unstable Abdomen: soft, active bowel sounds Extremities: no C/C/E, edema Decubiti: location Micro: Microbiology Date/Time Source Procedure Growth Status 05/31/17 16:30 Nasopharynx Influenza Types A,B Antigen (GENEVIEVE) - Final Complete Accucheck: 121 Critical Care - Subjective ROS Limited/Unobtainable: Yes Condition: critical EKG Rhythm: Sinus Rhythm FI02: 30 Vent Support Breath Rate: 16 Vent Support Mode: AC Vent Tidal Volume: 450 Sputum Amount: Small PEEP: 5.0 PIP: 19 I&O: Intake and Output 06/01/17 06/02/17 19:00 07:00 Output Total 360 ml Balance -360 ml Output Urine Total 360 ml # Voids 3 CXR: no changes Labs: Laboratory Tests Test 06/02/17 06:05 06/02/17 09:15 White Blood Count 8.6 K/UL (4.8-10.8) Red Blood Count 3.40 M/UL (4.70-6.10) L Hemoglobin 9.4 G/DL (14.2-18.0) L Hematocrit 29.5 % (42.0-52.0) L Mean Corpuscular Volume 87 FL (80-99) Mean Corpuscular Hemoglobin 27.5 PG (27.0-31.0) Mean Corpuscular Hemoglobin Concent 31.7 G/DL (32.0-36.0) L Red Cell Distribution Width 14.5 % (11.6-14.8) Platelet Count 396 K/UL (150-450) Mean Platelet Volume 5.9 FL (6.5-10.1) L Neutrophils (%) (Auto) 44.5 % (45.0-75.0) L Lymphocytes (%) (Auto) 32.2 % (20.0-45.0) Monocytes (%) (Auto) 9.6 % (1.0-10.0) Eosinophils (%) (Auto) 12.9 % (0.0-3.0) H Basophils (%) (Auto) 0.9 % (0.0-2.0) Prothrombin Time 11.2 SEC (9.30-11.50) Prothromb Time International Ratio 1.1 (0.9-1.1) Activated Partial Thromboplast Time 27 SEC (23-33) Sodium Level 140 MMOL/L (136-145) Potassium Level 3.4 MMOL/L (3.5-5.1) L Chloride Level 107 MMOL/L (98-107) Carbon Dioxide Level 25 MMOL/L (21-32) Anion Gap 8 mmol/L (5-15) Blood Urea Nitrogen 8 mg/dL (7-18) Creatinine 0.8 MG/DL (0.55-1.30) Estimat Glomerular Filtration Rate > 60 mL/min (>60) Glucose Level 85 MG/DL (74-106) Calcium Level 8.8 MG/DL (8.5-10.1) Vancomycin Level Trough 6.5 ug/mL (5.0-12.0) Rocio Uriarte MD Jun 02, 2017 12:54
--- NOTE | 2017-06-02 13:35 | Immediate Post-Op Evaluation ---
Immediate Post-Op Evalulation Immediate Post-Op Evalulation Procedure: egd Date of Evaluation: Jun 02, 2017 Time of Evaluation: 10:32 IV Fluids: 50ml 0.9ns Blood Products: none Estimated Blood Loss: negligible Blood Pressure Systolic: 98 Blood Pressure Diastolic: 57 Pulse Rate: 75 Respiratory Rate: 18 O2 Sat by Pulse Oximetry: 99 Pain Score (1-10): 0 Nausea: No Vomiting: No Complications none Patient Status: awake, reacts, patent Hydration Status: adequate Drug: YESSI Medellin Jun 02, 2017 13:35
--- NOTE | 2017-06-02 13:37 | 48 Hour Post Anesthesia Eval ---
Post Anesthesia Evaluation Procedure: egd Date of Evaluation: Jun 02, 2017 Time of Evaluation: 10:34 Blood Pressure Systolic: 102 0: 54 Pulse Rate: 77 Respiratory Rate: 18 Temperature (Fahrenheit): 97.5 O2 Sat by Pulse Oximetry: 99 Airway: patent Nausea: No Vomiting: No Pain Intensity: 0 Hydration Status: adequate Cardiopulmonary Status: stable Mental Status/LOC: patient returned to baseline Post-Anesthesia Complications: none Follow-up care needed: N/A YESSI GASTON Jun 02, 2017 13:37
--- NOTE | 2017-06-02 13:50 | Infectious Diseases Prog Note ---
Assessment/Plan Assessment/Plan Abx: IV Vancomycin 05/30- Cefepime 05/29- Assessment: Vomiting Abd distention -CT abd/p: Nonspecific mild prominent fluid-filled small bowel loops in the left upper quadrant. Otherwise no acute process. Gastrostomy, new since prior study 03/17/2017. Small left pleural effusion. Left basilar atelectasis and possible consolidation. Colonic diverticulosis. No evidence of diverticulitis. Other findings as noted, including hepatocolonic interposition, degenerative change of the hips with heterotopic ossification, prominent prostate Probable aspiration pneumonia- -CXR: Left infrahilar infiltrate, also demonstrated on earlier CT scan.Elevated right hemidiaphragm, also previously described -sp cx P. stuarti ESBL (S Ertapenem, R Cefepime, Zosyn), GNR#2 (id and sensing pendng) -influenza sc neg ?UTI, unable to assess for symptoms -u/a wbc 20-30, nit neg, leuk +3; ucx 30-40k P. mirabilis (R nitrofurantoin, otherwise S), >100K ESBL E.coli (S Ertapenem, ZOsyn; R Cefepime) Leukocytosis, resolved Chronic resp failure on Vent/trach 03/20/17 Dysphagia s/p PEG 03/22/17 Recent aerococcus bacteremia 03/2017, s/p Rx -03/03 Bcx 03/18 +; 03/06 Neg x4 -Elevated CRp 21.0 03/06; CRP 1.2 03/19 -03/03 TTE: no vegetations, no significant valve abnormalities Recent ESBL E.coli HCAP 02/2017, s/p Rx Osteoarthritis. Hypertension. COPD. History of GERD History of H. pylori in the past Dementia with psychosis Esophagitis (per EGD) Plan: -d/c IV Vancomycin #4 -Switch Cefepime #5/10 to Ertapenem 1g IV daily to complete course; ok to discharge on this regimen. -if HD decompensation, switch Cefepime to Meropenem -july d/c IV Vancomycin in next 24hrs if not MRSA growth 03/22 SP Ancef x1 (periop) 03/21 SP Meropenem #14 03/20 SP IV Vanco #10 03/15 SP Dapto x1 03/08 SP vancomycin d# 5 03/07 SP Zosyn d# 4 -f/u cx -Monitor CBC/CMP, temperatures -trach/peg care -aspiration precautions Thank you for this consultation. Will continue to follow along with you. Discussed with RN. Subjective Allergies: Coded Allergies: No Known Allergies (Unverified , 10/20/16) Subjective afebrile no leukocytosis Bcx NTD sp and ucx with ESBL Objective Vital Signs Last 24 Hour Vital Signs Date Time Temp Pulse Resp B/P (MAP) Pulse Ox O2 Delivery O2 Flow Rate FiO2 06/02/17 13:37 207.5 77 18 99 06/02/17 13:35 75 18 99 06/02/17 12:57 74 25 30 06/02/17 12:00 30 06/02/17 12:00 97.5 66 18 88/51 100 Mechanical Ventilator 30 97.5 66 06/02/17 12:00 60 06/02/17 11:14 79 22 30 06/02/17 09:03 68 20 30 06/02/17 08:00 35 06/02/17 08:00 60 06/02/17 08:00 97.2 72 24 96/71 100 Mechanical Ventilator 30 97.2 72 06/02/17 07:17 56 17 30 06/02/17 04:53 59 20 35 06/02/17 04:00 59 06/02/17 04:00 35 06/02/17 04:00 98.5 63 20 115/62 100 Mechanical Ventilator 35 98.5 06/02/17 02:33 59 17 35 06/02/17 00:49 59 19 35 06/02/17 00:26 72 06/02/17 00:00 97.9 61 20 132/90 100 Mechanical Ventilator 35 97.9 06/02/17 00:00 35 06/01/17 23:23 61 19 35 06/01/17 21:36 61 28 35 06/01/17 20:00 98.5 58 17 132/59 100 Mechanical Ventilator 35 98.5 06/01/17 20:00 35 06/01/17 19:43 60 06/01/17 18:46 74 27 35 06/01/17 17:02 64 19 35 06/01/17 16:00 97.2 71 20 158/94 100 Mechanical Ventilator 35 97.2 06/01/17 16:00 54 06/01/17 16:00 35 06/01/17 14:59 62 18 35 Height (Feet): 5 Height (Inches): 6.00 Weight (Pounds): 149 Objective General Appearance: no apparent distress, alert Head: normocephalic EENT: normal ENT inspection Neck: supple Respiratory: normal breath sounds, other - mech vent Cardiovascular: normal rate Gastrointestinal: gt - c/d/i Rectal: deferred Genitourinary: no CVA tenderness Skin: normal inspection, normal color, no rash, warm/dry Lymphatic: normal inspection, no adenopathy Microbiology Date/Time Source Procedure Growth Status 05/31/17 16:30 Nasopharynx Influenza Types A,B Antigen (GENEVIEVE) - Final Complete Laboratory Tests Test 06/02/17 06:05 06/02/17 09:15 White Blood Count 8.6 K/UL (4.8-10.8) Red Blood Count 3.40 M/UL (4.70-6.10) L Hemoglobin 9.4 G/DL (14.2-18.0) L Hematocrit 29.5 % (42.0-52.0) L Mean Corpuscular Volume 87 FL (80-99) Mean Corpuscular Hemoglobin 27.5 PG (27.0-31.0) Mean Corpuscular Hemoglobin Concent 31.7 G/DL (32.0-36.0) L Red Cell Distribution Width 14.5 % (11.6-14.8) Platelet Count 396 K/UL (150-450) Mean Platelet Volume 5.9 FL (6.5-10.1) L Neutrophils (%) (Auto) 44.5 % (45.0-75.0) L Lymphocytes (%) (Auto) 32.2 % (20.0-45.0) Monocytes (%) (Auto) 9.6 % (1.0-10.0) Eosinophils (%) (Auto) 12.9 % (0.0-3.0) H Basophils (%) (Auto) 0.9 % (0.0-2.0) Prothrombin Time 11.2 SEC (9.30-11.50) Prothromb Time International Ratio 1.1 (0.9-1.1) Activated Partial Thromboplast Time 27 SEC (23-33) Sodium Level 140 MMOL/L (136-145) Potassium Level 3.4 MMOL/L (3.5-5.1) L Chloride Level 107 MMOL/L (98-107) Carbon Dioxide Level 25 MMOL/L (21-32) Anion Gap 8 mmol/L (5-15) Blood Urea Nitrogen 8 mg/dL (7-18) Creatinine 0.8 MG/DL (0.55-1.30) Estimat Glomerular Filtration Rate > 60 mL/min (>60) Glucose Level 85 MG/DL (74-106) Calcium Level 8.8 MG/DL (8.5-10.1) Vancomycin Level Trough 6.5 ug/mL (5.0-12.0) Current Medications Medications (Trade) Dose Ordered Sig/Ant Route PRN Reason Start Time Stop Time Status Last Admin Dose Admin Acetaminophen (Tylenol) 650 mg Q4H PRN ORAL FEVER (temp>100.5F) 05/30/17 08:30 06/29/17 08:29 Al Hydroxide/Mg Hydroxide (Mylanta) 15 ml Q1H PRN ORAL gi upset 06/02/17 07:00 06/02/17 14:00 Albuterol/ Ipratropium (Albuterol/ Ipratropium) 3 ml Q4H PRN HHN Shortness of Breath 05/30/17 08:30 06/04/17 08:29 Atropine Sulfate (Atropine) 0.5 mg Q5M PRN IV bpm less than 45 06/02/17 07:00 06/02/17 14:00 Cefepime HCl 1 gm/ Sodium Chloride 55 ml @ 110 mls/hr Q12HR@0400,1600 IVPB 05/31/17 16:00 06/07/17 15:59 06/02/17 04:29 Dextrose (Dextrose 50%) STAT PRN IV Hypoglycemia 05/30/17 08:30 06/29/17 08:29 Dextrose/Sodium Chloride 1,000 ml @ 50 mls/hr Q20H IV 05/30/17 12:30 06/29/17 12:29 06/02/17 01:12 Diphenhydramine HCl (Benadryl) 25 mg Q15M PRN IVP Itching 06/02/17 07:00 06/02/17 14:00 Fentanyl Citrate (Sublimaze 100 mcg/2 mL) 25 mcg Q10M PRN IV Moderate Pain (Pain Scale 4-6) 06/02/17 07:00 06/02/17 14:00 Hydralazine HCl (Apresoline) 5 mg Q30M PRN IV SBP>160 OR___/DBP>90 OR___ 06/02/17 07:00 06/02/17 14:00 Lorazepam (Ativan 2mg/ml 1ml) 2 mg Q2H PRN IV For Anxiety 05/30/17 08:30 06/06/17 08:29 Midazolam HCl (Versed 2mg/2ml vial) 1 mg Q15M PRN IVP For Anxiety 06/02/17 07:00 06/02/17 14:00 Morphine Sulfate (Morphine Sulfate) 4 mg Q4H PRN IVP Severe Pain (Pain Scale 7-10) 05/30/17 08:30 06/06/17 08:29 Ondansetron HCl (Zofran) 4 mg Q1H PRN IVP Nausea & Vomiting 06/02/17 07:00 06/02/17 14:00 Ondansetron HCl (Zofran) 4 mg Q6H PRN IVP Nausea & Vomiting 05/30/17 08:30 06/29/17 08:29 Pantoprazole (Protonix) 40 mg BID IV 05/31/17 18:00 06/30/17 17:59 06/02/17 09:40 Polyethylene Glycol (Miralax) 17 gm DAILYPRN PRN ORAL Constipation 05/30/17 08:30 06/29/17 08:29 Potassium Chloride (K-Dur) 40 meq ONCE ONCE ORAL 06/02/17 14:00 06/02/17 14:01 Vancomycin HCl (Vanco rx to dose) 1 ea DAILY PRN MISC per RX protocol 05/30/17 09:00 06/29/17 08:59 Vancomycin HCl 1 gm/Dextrose 275 ml @ 183.3 mls/ hr Q12H IVPB 06/02/17 22:00 06/07/17 21:59 Vitamin A/Vitamin D (A & D Oint) 1 applic EVERY 12 HOURS TOPIC 05/30/17 09:00 06/29/17 08:59 06/02/17 09:40 Alise Polanco M.D. Jun 02, 2017 13:50
[2017-06-02 16:00] VITALS: BP 123/82
[2017-06-02] MEDS ORDERED: Ertapenem 1 GM in NS 55 ML IVPB SCH (16:00)
[2017-06-02] MEDS ORDERED: Propofol 200mg/20ml IV ONE (19:39)
[2017-06-02] MEDS ORDERED: Lidocaine 1% MPF 10mg/ml 5ml ONE (19:39)
[2017-06-02] MEDS ORDERED: Vancomycin 1 GM in D5W 275 ML IVPB SCH (22:00)
--- NOTE | 2017-06-03 14:24 | Discharge Summary ---
Discharge Summary Hospital Course Date of Admission May 30, 2017 at 01:03 Date of Discharge Jun 02, 2017 at 19:40 Admitting Diagnosis sepsis, uti HPI Armstrong Audra Maravilla is a 71 year old male who was admitted on May 30, 2017 at 01:03 for Sepsis, Urinary Tract Infection Hospital Course [id number] Discharge Discharge Disposition Patient was discharged to SNF/Subacute Facility(03) Lilliana Cummings NP Jun 03, 2017 14:24
--- NOTE | 2017-06-03 18:16 | Procedure Note ---
DATE OF PROCEDURE: 06/02/2017 SURGEON: Tr Kaur M.D. PROCEDURE: Upper endoscopy with biopsy. ANESTHESIA: Per Dr. Kincaid. INSTRUMENT: Olympus adult flexible upper endoscope. INDICATION: GI bleeding. The procedure, risks, benefits, and possible consequences, including hemorrhage, aspiration, perforation and infection, and alternative treatments, were explained to the patient/legal guardian by Dr. Tr Kaur and the patient/legal guardian understood and accepted these risks. DESCRIPTION OF PROCEDURE: After informed consent was obtained and the patient was adequately sedated, Olympus upper endoscope was advanced from mouth into the duodenal bulb. We could not pass the scope into the second portion of the duodenum. Every time we did that, the scope would in the stomach. So, the patient was not tolerating the procedure very well, so we did not want to force it. The patient had diffuse gastritis. Random biopsy from antrum and body was obtained to rule out H. pylori infection. G-tube was in place without any ulceration around the G-tube site. SUMMARY OF FINDINGS: 1. No evidence of any active upper GI bleeding at this time. 2. Gastritis, status post biopsy. 3. G-tube in the right place. RECOMMENDATIONS: 1. Follow up biopsy results and treat accordingly. 2. We will resume tube feeding. I want to thank Dr. Uriarte for this kind referral. Tr Kaur M.D. DR: JOVITA JOB#: [id number] CC: Rocio Uriarte M.D.; Fax#: [phone]
== END 2017-06-02 19:40 | DRG 871 ==
LOC: EDUNIT# 22:23 → EDBD 22:23 → EMR 05-30 00:59 → 2W 05-30 01:03 → EDBEDREQ 05-30 01:32
PROC: 0DB68ZX Excision of Stomach, Via Natural or Artificial Opening Endoscopic, Diagnostic (ICD-10-PCS; 2017-05-30)
PROC: 0DB78ZX Excision of Stomach, Pylorus, Via Natural or Artificial Opening Endoscopic, Diagnostic (ICD-10-PCS; 2017-06-02)
PROC: 5A1945Z Respiratory Ventilation, 24-96 Consecutive Hours (ICD-10-PCS; principal; 2017-06-02 10:10)
DX: A41.9 Sepsis, unspecified organism (principal); J96.20 Acute and chronic respiratory failure, unspecified whether with hypoxia or hypercapnia; J18.9 Pneumonia, unspecified organism; J44.9 Chronic obstructive pulmonary disease, unspecified; Z43.0 Encounter for attention to tracheostomy; Z43.1 Encounter for attention to gastrostomy; G30.9 Alzheimer's disease, unspecified; F02.80 Dementia in other diseases classified elsewhere, unspecified severity, without behavioral disturbance, psychotic disturbance, mood disturbance, and anxiety; R13.10 Dysphagia, unspecified; M19.90 Unspecified osteoarthritis, unspecified site; I10 Essential (primary) hypertension; K21.9 Gastro-esophageal reflux disease without esophagitis; K29.70 Gastritis, unspecified, without bleeding
CPT/HCPCS: 36415; 71045; 74176; 80048; 80053; 80069; 80202; 81003; 82378; 82550; 82553; 82607; 82728; 82746; 83540; 83550; 83605; 83735; 83880; 84100; 84439; 84443; 84484; 85025; 85044; 85610; 85730; 86710; 87040; 87070; 87081; 87086; 87181; 87205; 93005; 93970; 94002; 94003; 94150; 99285; J2405; J8499

== ENCOUNTER 2017-09-04 09:00 | Inpatient (IN) | payer MEDICARE, OTHER ==
[2017-09-04] VITALS (10 sets, daily range): BP systolic 76–148; BP diastolic 57–96
[~2017-09-04] VITALS: Ht 172.7 cm; Wt 66.4 kg
[~2017-09-04 09:00] MED LIST changes: +ACETAMINOP160 MG/5 M ORAL; +ASPIRIN81 MG ORAL; +ATORVASTATIN CA40 MG GT; +COREG3.125 MG GT; +CRANBERRY450 M5 GT; +DOCUSATE SODIU100 MG GT; +DULCOLAX10 MG RC; +FLEET ENEMA133 ML RECTAL; +MILK OF MA400 MG/51 ORAL; +MULTI-DELYN237 ML GT; +VITAMIN C500 MG/11 GT
[2017-09-04] MEDS ORDERED: LEVAQUIN250 M1 GT (09:05)
[2017-09-04] MEDS ORDERED: MACRODANTIN50 MG GT (09:05)
[2017-09-04] MEDS ORDERED: Vancomycin 1 GM in NS 275 ML IV ONE (09:15)
[2017-09-04] MEDS ORDERED: Cefepime HCl 1 GM in NS 55 ML IV SCH (09:15)
[2017-09-04] MEDS ORDERED: Cefepime HCl 1 GM in NS 110 ML IV SCH (10:00)
[2017-09-04 10:07] LABS: BASOPHILS % (AUTO) 0.7 % (0.0-2.0); EOSINOPHILS % (AUTO) 15.3 % (0.0-3.0); HEMATOCRIT 40.2 % (42.0-52.0); HEMOGLOBIN 12.2 G/DL (14.2-18.0); LYMPHOCYTES % (AUTO) 20.4 % (20.0-45.0); MEAN CORPUSCULAR VOLUME 85 FL (80-99); MONOCYTES % (AUTO) 10.1 % (1.0-10.0); NEUTROPHILS % (AUTO) 53.7 % (45.0-75.0); PLATELET COUNT 257 K/UL (150-450); RED BLOOD COUNT 4.74 M/UL (4.70-6.10); RED CELL DISTRIBUTION WIDTH 15.6 % (11.6-14.8); WHITE BLOOD COUNT 13.1 K/UL (4.8-10.8)
[2017-09-04 10:14] LABS: INR 1.1 (0.9-1.1)
[2017-09-04 10:25] LABS: ANION GAP 8 mmol/L (5-15); BLOOD UREA NITROGEN 17 mg/dL (7-18); CALCIUM 8.9 MG/DL (8.5-10.1); CARBON DIOXIDE 27 MMOL/L (21-32); CHLORIDE 103 MMOL/L (98-107); CREATININE 0.9 MG/DL (0.55-1.30); POTASSIUM 3.9 MMOL/L (3.5-5.1); SODIUM 138 MMOL/L (136-145)
[2017-09-04 10:38] LABS: ALANINE AMINOTRANSFERASE 33 U/L (12-78); ALBUMIN 2.9 G/DL (3.4-5.0); ALBUMIN/GLOBULIN RATIO 0.5 (1.0-2.7); ALKALINE PHOSPHATASE 138 U/L (46-116); ASPARTATE AMINO TRANSFERASE 26 U/L (15-37); BILIRUBIN,TOTAL 0.4 MG/DL (0.2-1.0); CKMB 0.6 NG/ML (0.0-3.6); CREATINE KINASE 141 U/L (26-308); PHOSPHORUS 3.6 MG/DL (2.5-4.9)
--- NOTE | 2017-09-04 10:55 | Diagnostic Imaging Report ---
EXAM: XR Chest, 1 View CLINICAL HISTORY: Shortness of breath TECHNIQUE: Frontal view of the chest. COMPARISON: Chest x-ray dated 05/31/17. FINDINGS: Lungs: Decreased lung volumes, which may be related to shallow inspiration. Subsegmental atelectasis versus infiltrates are seen medially in bilateral lung bases. Pleural space: Unremarkable. No pneumothorax. Heart: Unremarkable. No cardiomegaly. Mediastinum: Unremarkable. Bones/joints: Unremarkable. Tubes, lines and devices: EKG leads overlie the thorax. Tracheostomy tube with expected positioning. Upper abdomen: Persistent elevated right hemidiaphragm. IMPRESSION: 1. Persistent elevated right hemidiaphragm. 2. Decreased lung volumes, which may be related to shallow inspiration. This results in crowding of the bronchovascular structures and increased interstitial markings. 3. Subsegmental atelectasis versus infiltrates are seen medially in bilateral lung bases. This is not significantly changed compared to the prior chest x-ray.
[2017-09-04 11:01] LABS: APPEARANCE,URINE CLEAR; BILIRUBIN, URINE NEGATIVE (NEGATIVE); COLOR,URINE YELLOW; GLUCOSE, URINE (UA) NEGATIVE (NEGATIVE); KETONES,URINE NEGATIVE (NEGATIVE); LEUKOCYTE ESTERASE ,URINE 2+ (NEGATIVE); NITRITE,URINE NEGATIVE (NEGATIVE); PH,URINE 6 (4.5-8.0); PROTEIN,URINE NEGATIVE (NEGATIVE); UROBILINOGEN,URINE 4 MG/DL (0.0-1.0)
--- NOTE | 2017-09-04 12:23 | Consultation ---
History of Present Illness General Date patient seen: Sep 04, 2017 Chief Complaint: Abnormal Labs Present Illness HPI 72-year-old male with a history of chronic respiratory failure and currently on ventilator via tracheostomy, feeding tube presented to ER by paramedics because of leukocytosis. He was diagnosed to have sepsis and worsening respiratory failure and admitted to [facility] for further evaluation. Allergies: Coded Allergies: No Known Allergies (Unverified , 10/20/16) Medication History Scheduled Al Hydroxide/mg Hydroxide (Mag-Al Plus Suspension), 30 ML PO Q6HR, (Reported) Ascorbic Acid* (Vitamin C*), 500 MG ORAL DAILY, (Reported) Aspirin* (Aspir 81*), 81 MG ORAL DAILY, (Reported) Aspirin* (Aspirin*), 81 MG ORAL DAILY, (Reported) Atorvastatin Calcium* (Atorvastatin Calcium*), 40 MG GT BEDTIME, (Reported) Carvedilol (Coreg), 3.125 MG GT EVERY 12 HOURS, (Reported) Cranberry Fruit (Cranberry), Unknown Dose GT DAILY, (Reported) Docusate Sodium* (Docusate Sodium*), 100 MG ORAL DAILY, (Reported) Docusate Sodium* (Docusate Sodium*), 100 MG GT DAILY, (Reported) Levofloxacin* (Levaquin*), 250 MG GT DAILY, (Reported) Magnesium Hydroxide* (Milk Of Magnesia*), 30 ML ORAL DAILY, (Reported) Multivitamin Liquid* (Multi-Delyn*), 15 ML GT DAILY, (Reported) Multivitamin With Minerals (Multivitamins With Minerals*), 1 TAB ORAL DAILY, ( Reported) Na Phos,M-B/Na Phos,Di-Ba* (Fleet Enema*), 133 ML RECTAL DAILY, (Reported) Nitrofurantoin Macrocrystal (Macrodantin*), 50 MG GT FOUR TIMES A DAY, (Reported ) Nitroglycerin (Nitroglycerin), 0.4 MG SL Q5M x3 DOSES PRN, (Reported) Omeprazole (Omeprazole), 40 MG ORAL DAILY, (Reported) Omeprazole (Omeprazole), 40 MG ORAL DAILY, (Reported) Sucralfate* (Carafate*), 1 GM ORAL FOUR TIMES A DAY, (Reported) Sucralfate* (Carafate*), 1 GM ORAL FOUR TIMES A DAY, (Reported) Vit C/Ascorbate Ca/Ascorb Sod (Vitamin C 500 Mg/15 Ml Liquid), Unknown Dose GT DAILY, (Reported) Scheduled PRN Acetaminophen (Tylenol), 500 MG ORAL Q4HR PRN for Prn Pain/Headache/Temp > 101, (Reported) Acetaminophen* (Acetaminophen 325MG Tablet*), 650 MG ORAL Q4H PRN for Mild Pain/ Temp > 100.5, (Reported) Al Hydroxide/mg Hydroxide (Mag-Al Plus Suspension), 30 ML PO Q6HR PRN for Constipation, (Reported) Bisacodyl (Dulcolax), 10 MG RC PRN PRN for Constipation, (Reported) Diphenhydramine Hcl* (Diphenhydramine Hcl*), 25 MG ORAL Q6H PRN for Itching, ( Reported) Ondansetron* (Zofran*), 4 MG ORAL Q6H PRN for Nausea & Vomiting, (Reported) Ondansetron* (Zofran*), 4 MG ORAL Q6H PRN for Nausea & Vomiting, (Reported) Polyethylene Glycol 3350* (Miralax*), 17 GM ORAL DAILY PRN for Constipation, ( Reported) Temazepam* (Temazepam*), 15 MG ORAL BEDTIME PRN for Insomnia, (Reported) Miscellaneous Medications Acetaminophen 160MG/5ML* (Acetaminophen*), Unknown Dose ORAL, (Reported) Patient History Healthcare decision maker Resuscitation status Advanced Directive on File Past Medical/Surgical History Past Medical/Surgical History: (1) jail resident (2) Feeding by G-tube (3) COPD (chronic obstructive pulmonary disease) (4) Alzheimer disease Review of Systems All Other Systems: negative except mentioned in HPI Physical Exam General Appearance: cachetic Lines, tubes and drains: trach, gtube HEENT: normocephalic, atraumatic Neck: non-tender Respiratory/Chest: chest wall non-tender, lungs clear Breasts: no masses Cardiovascular/Chest: normal peripheral pulses Abdomen: normal bowel sounds, soft Genitourinary/Rectal: normal genital exam Last 24 Hour Vital Signs Date Time Temp Pulse Resp B/P (MAP) Pulse Ox O2 Delivery O2 Flow Rate FiO2 09/04/17 11:49 60 16 76/62 100 Mechanical Ventilator 35 09/04/17 10:31 35 09/04/17 10:00 99.3 80 16 100/57 100 Mechanical Ventilator 35 99.3 09/04/17 09:23 81 34 Mechanical Ventilator 35 09/04/17 09:23 81 34 35 09/04/17 08:56 98.3 67 26 136/72 98 Mechanical Ventilator 98.2 Laboratory Tests Test 09/04/17 09:20 09/04/17 10:45 White Blood Count 13.1 K/UL (4.8-10.8) H Red Blood Count 4.74 M/UL (4.70-6.10) Hemoglobin 12.2 G/DL (14.2-18.0) L Hematocrit 40.2 % (42.0-52.0) L Mean Corpuscular Volume 85 FL (80-99) Mean Corpuscular Hemoglobin 25.6 PG (27.0-31.0) L Mean Corpuscular Hemoglobin Concent 30.3 G/DL (32.0-36.0) L Red Cell Distribution Width 15.6 % (11.6-14.8) H Platelet Count 257 K/UL (150-450) Mean Platelet Volume 8.6 FL (6.5-10.1) Neutrophils (%) (Auto) 53.7 % (45.0-75.0) Lymphocytes (%) (Auto) 20.4 % (20.0-45.0) Monocytes (%) (Auto) 10.1 % (1.0-10.0) H Eosinophils (%) (Auto) 15.3 % (0.0-3.0) H Basophils (%) (Auto) 0.7 % (0.0-2.0) Prothrombin Time 12.0 SEC (9.30-11.50) H Prothromb Time International Ratio 1.1 (0.9-1.1) Activated Partial Thromboplast Time 28 SEC (23-33) Urine Color Yellow Urine Appearance Clear Urine pH 6 (4.5-8.0) Urine Specific [place] 1.015 (1.005-1.035) Urine Protein Negative (NEGATIVE) Urine Glucose (UA) Negative (NEGATIVE) Urine Ketones Negative (NEGATIVE) Urine Occult Blood Negative (NEGATIVE) Urine Nitrite Negative (NEGATIVE) Urine Bilirubin Negative (NEGATIVE) Urine Urobilinogen 4 MG/DL (0.0-1.0) H Urine Leukocyte Esterase 2+ (NEGATIVE) H Urine RBC 2-4 /HPF (0 - 0) H Urine WBC 2-4 /HPF (0 - 0) Urine Squamous Epithelial Cells Occasional /LPF Urine Bacteria Occasional /HPF (NONE) Sodium Level 138 MMOL/L (136-145) Potassium Level 3.9 MMOL/L (3.5-5.1) Chloride Level 103 MMOL/L (98-107) Carbon Dioxide Level 27 MMOL/L (21-32) Anion Gap 8 mmol/L (5-15) Blood Urea Nitrogen 17 mg/dL (7-18) Creatinine 0.9 MG/DL (0.55-1.30) Estimat Glomerular Filtration Rate > 60 mL/min (>60) Glucose Level 93 MG/DL (74-106) Lactic Acid Level 2.50 mmol/L (0.4-2.0) H Calcium Level 8.9 MG/DL (8.5-10.1) Phosphorus Level 3.6 MG/DL (2.5-4.9) Magnesium Level 2.2 MG/DL (1.8-2.4) Total Bilirubin 0.4 MG/DL (0.2-1.0) Aspartate Amino Transf (AST/SGOT) 26 U/L (15-37) Alanine Aminotransferase (ALT/SGPT) 33 U/L (12-78) Alkaline Phosphatase 138 U/L (46-116) H Total Creatine Kinase 141 U/L (26-308) Creatine Kinase MB 0.6 NG/ML (0.0-3.6) Creatine Kinase MB Relative Index 0.4 Troponin I 0.000 ng/mL (0.000-0.056) Total Protein 8.2 G/DL (6.4-8.2) Albumin 2.9 G/DL (3.4-5.0) L Globulin 5.3 g/dL Albumin/Globulin Ratio 0.5 (1.0-2.7) L Arterial Blood pH 7.410 (7.350-7.450) Arterial Blood Partial Pressure CO2 40.8 mmHg (35.0-45.0) Arterial Blood Partial Pressure O2 98.4 mmHg (75.0-100.0) Arterial Blood HCO3 25.3 mmol/L (22.0-26.0) Arterial Blood Oxygen Saturation 97.2 % (92.0-98.0) Arterial Blood Base Excess 0.6 Ulises Test Positive Height (Feet): 5 Height (Inches): 8.00 Weight (Pounds): 150 Medications Current Medications Medications (Trade) Dose Ordered Sig/Ant Route PRN Reason Start Time Stop Time Status Last Admin Dose Admin Carvedilol (Coreg) 3.125 mg EVERY 12 HOURS GT 09/04/17 21:00 10/04/17 20:59 UNV Metronidazole 100 ml @ 100 mls/hr Q8H IV 09/04/17 09:15 09/05/17 09:14 09/04/17 11:08 Sodium Chloride 1,000 ml @ 999 mls/hr Q1H1M ONCE IV 09/04/17 11:45 09/04/17 12:45 09/04/17 11:49 Assessment/Plan Problem List: (1) Sepsis ICD Codes: A41.9 - Sepsis, unspecified organism SNOMED: 66722241 (2) Acute on chronic respiratory failure ICD Codes: J96.20 - Acute and chronic respiratory failure, unspecified whether with hypoxia or hypercapnia SNOMED: 61550498 (3) Feeding by G-tube ICD Codes: Z93.1 - Gastrostomy status SNOMED: 841889081, 047965774 (4) jail resident ICD Codes: Z59.3 - Problems related to living in residential institution SNOMED: 688177368 (5) COPD (chronic obstructive pulmonary disease) ICD Codes: J44.9 - Chronic obstructive pulmonary disease, unspecified SNOMED: 38232342 (6) Alzheimer disease ICD Codes: G30.9 - Alzheimer's disease, unspecified SNOMED: 35140359 Respiratory: monitor respiratory rate, adjust FIO2, CXR Cardiac: continue to monitor HR/BP Renal: F/U I&O, keep IV fluid Infectious Disease: check cultures, continue antibiotics Gastrointestinal: continue feedings/current rate Endocrine: monitor blood sugar Hematologic: monitor H/H, transfuse if hgb<8.5 Neurologic: PRN Ativan, keep patient comfortable Affect: PRN ativan Prophylaxis: Protonix Time Spent (Minutes): 40 Notes Reviewed: interstate planner, renal Discussed with: nurses, consultants, behavioral health case manager Rocio Uriarte MD Sep 04, 2017 12:23
[2017-09-04] MEDS ORDERED: Miralax 17gm pkt ORAL PRN (12:30)
[2017-09-04] MEDS ORDERED: LORazepam Inj 2mg/ml 1ml IV PRN (12:30)
[2017-09-04] MEDS ORDERED: Morphine Sulfate 4mg/ml Inj IVP PRN (12:30)
[2017-09-04] MEDS ORDERED: Albuterol/Ipratropium 3ml neb HHN PRN (12:30)
--- NOTE | 2017-09-04 14:29 | Emergency Room Report ---
History of Present Illness General Chief Complaint: Abnormal Labs Present Illness HPI Patient is a 72-year-old male brought in by EMS after increased white blood count. Patient recently been noticed to have elevated white blood count greater than 20,000. Patient had have been noted to be vent and tracheostomy dependent. The patient is nonverbal at baseline. History is markedly limited by patient's metal status. Patient was brought in by EMS Allergies: Coded Allergies: No Known Allergies (Unverified , 10/20/16) Patient History Reviewed Nursing Documentation: PMH: Agreed; PSxH: Agreed Nursing Documentation-PMH Hx Hypertension: Yes Hx Pacemaker: No Hx Asthma: No Hx COPD: Yes - Pneumonia,sob, chronic respiratory failure Hx Diabetes: No Hx Cancer: No Hx Cerebrovascular Accident: Yes Hx Dementia: Yes Hx Seizures: No Review of Systems All Other Systems: limited - by mental status Physical Exam Vital Signs Date Time Temp Pulse Resp B/P (MAP) Pulse Ox O2 Delivery O2 Flow Rate FiO2 09/04/17 08:56 98.3 67 26 136/72 98 Mechanical Ventilator 98.2 09/04/17 09:23 35 General Appearance: no apparent distress, thin, Chronically Ill Eyes: bilateral eye PERRL ENT: dry mucus membranes Neck: limited range of motion, tracheotomy Respiratory: crackles Cardiovascular #1: normal peripheral pulses, regular rate, rhythm Gastrointestinal: soft, other - gtube present Musculoskeletal: decreased range of motion Neurologic: alert, motor weakness, other - limited rom bilaterall Medical Decision Making Diagnostic Impression: Primary Impression: Acute on chronic respiratory failure Additional Impressions: Alzheimer disease UTI (urinary tract infection) Sepsis ER Course Patient presented for abnormal laboratory values. Differential included but was not limited to anemia, pneumonia, pneumothorax, myocardial infarction, pericardial effusion, congestive heart failure, acidosis. Chest x-ray one view read by radiology showed the elevation of the diaphragm. ABG showed adequate oxygenation. Patient was noted to have some improvement in his white blood count from baseline however this continues to be elevated. Lactic acid level was noted to be elevated. Consistent with sepsis. The patient was noted to have brief hypotension in emergency department which was responsive to fluids.The patient was noted to have improvement in blood pressure after IV fluid bolus. Patient started on empiric antibiotics. Dr. Alex Grey was contacted for inpatient management the patient be admitted to [facility] do to ventilator dependence and likely need for inpatient antibiotics. Labs Test 09/04/17 09:20 09/04/17 10:45 09/04/17 12:30 White Blood Count 13.1 K/UL (4.8-10.8) Red Blood Count 4.74 M/UL (4.70-6.10) Hemoglobin 12.2 G/DL (14.2-18.0) Hematocrit 40.2 % (42.0-52.0) Mean Corpuscular Volume 85 FL (80-99) Mean Corpuscular Hemoglobin 25.6 PG (27.0-31.0) Mean Corpuscular Hemoglobin Concent 30.3 G/DL (32.0-36.0) Red Cell Distribution Width 15.6 % (11.6-14.8) Platelet Count 257 K/UL (150-450) Mean Platelet Volume 8.6 FL (6.5-10.1) Neutrophils (%) (Auto) 53.7 % (45.0-75.0) Lymphocytes (%) (Auto) 20.4 % (20.0-45.0) Monocytes (%) (Auto) 10.1 % (1.0-10.0) Eosinophils (%) (Auto) 15.3 % (0.0-3.0) Basophils (%) (Auto) 0.7 % (0.0-2.0) Prothrombin Time 12.0 SEC (9.30-11.50) Prothromb Time International Ratio 1.1 (0.9-1.1) Activated Partial Thromboplast Time 28 SEC (23-33) Urine Color Yellow Urine Appearance Clear Urine pH 6 (4.5-8.0) Urine Specific [place] 1.015 (1.005-1.035) Urine Protein Negative (NEGATIVE) Urine Glucose (UA) Negative (NEGATIVE) Urine Ketones Negative (NEGATIVE) Urine Occult Blood Negative (NEGATIVE) Urine Nitrite Negative (NEGATIVE) Urine Bilirubin Negative (NEGATIVE) Urine Urobilinogen 4 MG/DL (0.0-1.0) Urine Leukocyte Esterase 2+ (NEGATIVE) Urine RBC 2-4 /HPF (0 - 0) Urine WBC 2-4 /HPF (0 - 0) Urine Squamous Epithelial Cells Occasional /LPF Urine Bacteria Occasional /HPF (NONE) Sodium Level 138 MMOL/L (136-145) Potassium Level 3.9 MMOL/L (3.5-5.1) Chloride Level 103 MMOL/L (98-107) Carbon Dioxide Level 27 MMOL/L (21-32) Anion Gap 8 mmol/L (5-15) Blood Urea Nitrogen 17 mg/dL (7-18) Creatinine 0.9 MG/DL (0.55-1.30) Estimat Glomerular Filtration Rate > 60 mL/min (>60) Glucose Level 93 MG/DL (74-106) Calcium Level 8.9 MG/DL (8.5-10.1) Phosphorus Level 3.6 MG/DL (2.5-4.9) Magnesium Level 2.2 MG/DL (1.8-2.4) Total Bilirubin 0.4 MG/DL (0.2-1.0) Aspartate Amino Transf (AST/SGOT) 26 U/L (15-37) Alanine Aminotransferase (ALT/SGPT) 33 U/L (12-78) Alkaline Phosphatase 138 U/L (46-116) Total Creatine Kinase 141 U/L (26-308) Creatine Kinase MB 0.6 NG/ML (0.0-3.6) Creatine Kinase MB Relative Index 0.4 Troponin I 0.000 ng/mL (0.000-0.056) Total Protein 8.2 G/DL (6.4-8.2) Albumin 2.9 G/DL (3.4-5.0) Globulin 5.3 g/dL Albumin/Globulin Ratio 0.5 (1.0-2.7) Arterial Blood pH 7.410 (7.350-7.450) Arterial Blood Partial Pressure CO2 40.8 mmHg (35.0-45.0) Arterial Blood Partial Pressure O2 98.4 mmHg (75.0-100.0) Arterial Blood HCO3 25.3 mmol/L (22.0-26.0) Arterial Blood Oxygen Saturation 97.2 % (92.0-98.0) Arterial Blood Base Excess 0.6 Ulises Test Positive Lactic Acid Level 0.70 mmol/L (0.66-2.22) Last Vital Signs Date Time Temp Pulse Resp B/P (MAP) Pulse Ox O2 Delivery O2 Flow Rate FiO2 09/04/17 14:14 62 27 113/68 100 Mechanical Ventilator 35 09/04/17 13:15 98.9 98.9 Status: unchanged Disposition: ADMITTED INPATIENT Condition: Stable Referrals: Alex Grey DO (PCP) Darryl Rodriguez MD Sep 04, 2017 14:29
--- NOTE | 2017-09-04 15:24 | Consultation ---
Consult Note Assessment/Plan # [id number] Fitz Cannon MD Sep 04, 2017 15:24
--- NOTE | 2017-09-04 18:00 | Consultation ---
DATE OF CONSULTATION: 09/04/2017 INFECTIOUS DISEASE CONSULT CONSULTING PHYSICIAN: Fitz Cannon M.D. REFERRING PHYSICIAN: Justin Anthony M.D. REASON FOR CONSULTATION: Evaluation of the patient for sepsis. HISTORY OF PRESENT ILLNESS: The patient is a 72-year-old male with multiple medical problems as listed below who was admitted recently to this medical center for sepsis, urinary tract infection, and pneumonia. Now, the patient comes back to the hospital for sepsis. The patient was found to have leukocytosis and was hypertensive initially. The patient has been started on IV antibiotics. An Infectious Disease consultation has been requested for further evaluation of the patient and antibiotic management. The patient is not able to provide information. Information is gathered through the chart and talking to staff. PAST MEDICAL HISTORY: 1. History of aspiration pneumonia. 2. Possible urinary tract infection/history of ESBL E. coli. 3. History of respiratory failure, on the vent. 4. Status post PEG, dysphagia. 5. History of Aerococcus bacteremia. 6. History of ESBL E. coli and healthcare-associated pneumonia. 7. Osteoarthritis. 8. Hypertension. 9. Chronic obstructive pulmonary disease. 10. GERD. 11. Helicobacter pylori in the past. 12. Dementia/psychosis. MEDICATIONS: The patient has been started on vancomycin and received one dose of cefepime in the emergency room. ALLERGIES: No known drug allergies. SOCIAL HISTORY: The patient lives in a retirement. FAMILY HISTORY: Unavailable. REVIEW OF SYSTEMS: Unobtainable. PHYSICAL EXAMINATION: VITAL SIGNS: Temperature 97, pulse 86, respiratory rate 18, and blood pressure 148/95. HEENT: Mild pale conjunctivae. No icterus. NECK: Trach in place. CHEST: Coarse breathing sounds. HEART: S1 and S2. ABDOMEN: Soft. PEG tube in place. EXTREMITIES: No cyanosis. NEUROLOGIC: Awake and alert. LABORATORY DATA: White blood cells 13, hemoglobin 12, and platelets 15. UA unremarkable. BUN 17 and creatinine 0.9. ALT, AST, and alkaline phosphatase unremarkable. Chest x-ray, persistent elevation of right hemidiaphragm and decreased lung volumes. ASSESSMENT: The patient is a 72-year-old male with multiple medical problems who was admitted to this medical center with: 1. Sepsis. 2. Leukocytosis. 3. Status post transient hypertension. 4. Rule out urinary tract infection and ventilator-associated pneumonia and bacteremia. PLAN: 1. We will continue the patient on IV vancomycin. Add meropenem in view of history of recent extended-spectrum beta-lactamases Escherichia coli urinary tract infection and pneumonia. 2. Monitor CBC. 3. Monitor BMP. 4. Monitor cultures (blood, urine, and sputum). 5. Monitor chest x-ray. 6. Monitor the patient's clinical course and laboratories and based on those we will do further recommendation. Thank you, Dr. Anthony, for allowing me to participate in the care of this patient. I will follow the patient with you during this hospitalization. Fitz Cannon M.D. DR: WILLIAM JOB#: [id number] CC:
[2017-09-04] MEDS: Meropenem 1 GM in NS 55 ML IVPB SCH (19:07)
--- NOTE | 2017-09-04 19:16 | History & Physical ---
History and Physical History & Physicial Job ID [id number] Justin Anthony MD Sep 04, 2017 19:16
[2017-09-04] MEDS: Heparin 5000 units/ml inj SUBQ SCH (21:52)
[2017-09-05] MEDS: Meropenem 1 GM in NS 55 ML IVPB SCH ×3 (02:00→18:18)
--- NOTE | 2017-09-05 02:15 | History and Physical Report ---
DATE OF ADMISSION: 09/04/2017 INTERNAL MEDICINE HISTORY AND PHYSICAL Covering for Dr. Grey. REFERRING PHYSICIAN: Alex Grey D.O. REASON FOR ADMISSION: Sepsis. IDENTIFYING DATA: Dear Dr. Grey, The patient is a pleasant 72-year-old male with past medical history significant for history of sepsis, UTI, and pneumonia is admitted to [facility] with sepsis again, hypertension, and leukocytosis. Started on IV antibiotics. ID service consulted, Dr. Cannon. The patient is unable to provide any history and information is gathered from the chart and speaking to staff. PAST MEDICAL HISTORY: Aspiration pneumonia, UTI, ESBL E. coli, status post dysphagia, elevated ESBL E. coli, , helicobacter pylori . MEDICATIONS: Vancomycin has been given. ALLERGIES: . SOCIAL HISTORY: Lives in a alf. FAMILY HISTORY: Noncontributory. REVIEW OF SYSTEMS: Unobtainable. PHYSICAL EXAMINATION: VITAL SIGNS: Reviewed. GENERAL: No distress. LUNGS: Decreased breath sounds. Some crackles at the bases. The patient is status post tracheostomy. CARDIOVASCULAR: Regular rate. No S3 or S4. ABDOMEN: 01:20. EXTREMITIES: No cyanosis, swelling, or edema. LABORATORY DATA: WBC 13, hemoglobin 12, hematocrit 36, and platelet count of 250,000. ASSESSMENT AND RECOMMENDATIONS: 1. Sepsis due to history of extended Escherichia coli beta-lactamases. 2. History of pneumonia. evaluate urine culture and blood culture. 3. Leukocytosis secondary to underlying infection. He is on antibiotics. 4. Anemia due to underlying chronic disease. 5. Coagulopathy likely secondary to decreased p.o. intake. Lactic acid elevated. Imaging reviewed. Decreased lung volume. I appreciate the your consult and care. Justin Anthony M.D. DR: DELMY JOB#: [id number] CC:
[2017-09-05 04:00] VITALS: BP 103/66
[2017-09-05 04:22] LABS: BASOPHILS % (AUTO) 0.8 % (0.0-2.0); EOSINOPHILS % (AUTO) 16.8 % (0.0-3.0); HEMOGLOBIN 11.4 G/DL (14.2-18.0); LYMPHOCYTES % (AUTO) 19.7 % (20.0-45.0); MEAN CORPUSCULAR VOLUME 84 FL (80-99); MONOCYTES % (AUTO) 11.7 % (1.0-10.0); PLATELET COUNT 228 K/UL (150-450); RED BLOOD COUNT 4.27 M/UL (4.70-6.10); RED CELL DISTRIBUTION WIDTH 15.9 % (11.6-14.8); WHITE BLOOD COUNT 11.5 K/UL (4.8-10.8)
[2017-09-05 04:45] LABS: ALBUMIN 2.6 G/DL (3.4-5.0); ANION GAP 7 mmol/L (5-15); BLOOD UREA NITROGEN 13 mg/dL (7-18); CARBON DIOXIDE 25 MMOL/L (21-32); CHLORIDE 107 MMOL/L (98-107); CREATININE 0.9 MG/DL (0.55-1.30); PHOSPHORUS 3.1 MG/DL (2.5-4.9); POTASSIUM 3.7 MMOL/L (3.5-5.1); SODIUM 139 MMOL/L (136-145)
[2017-09-05 08:00] VITALS: BP 113/56
[2017-09-05] MEDS: Pantoprazole Inj IV SCH (09:03)
[2017-09-05] MEDS: Heparin 5000 units/ml inj SUBQ SCH ×2 (09:05→20:35)
[2017-09-05] MEDS ORDERED: Tubing IV Secondary IV ONE (11:08)
[2017-09-05] MEDS ORDERED: NS 275ml ONE (11:08)
--- NOTE | 2017-09-05 11:10 | General Progress Note ---
Assessment/Plan Status: stable, progressing Assessment/Plan # Sepsis --> Pt on IV VANCOMYCIN Q12 --> monitor for improvement. # Leukocytosis secondary to underlying infection. --> wbc improving --> continue abx, monitor for improvement. # Anemia due to underlying chronic disease. --> anemia w/u has been reviewed, will rend daily --> hgb goal >7 # Coagulopathy likely secondary to decreased p.o. intake. # History of pneumonia. --> Imaging reviewed. Decreased lung volume. Subjective Date patient seen: Sep 05, 2017 ROS Limited/Unobtainable: Yes Allergies: Coded Allergies: No Known Allergies (Unverified , 10/20/16) All Systems: reviewed and negative except above Subjective Covering for Dr. Grey. No overnight events. NAD. No fever, chills, sob. Objective Last 24 Hour Vital Signs Date Time Temp Pulse Resp B/P (MAP) Pulse Ox O2 Delivery O2 Flow Rate FiO2 09/05/17 10:47 67 20 35 09/05/17 09:03 62 113/56 09/05/17 08:53 62 17 35 09/05/17 08:00 62 09/05/17 08:00 35 09/05/17 08:00 98.7 76 22 113/56 98 Mechanical Ventilator 35 98.7 09/05/17 06:30 62 17 35 09/05/17 04:50 72 17 35 09/05/17 04:00 97.8 67 19 103/66 100 Mechanical Ventilator 35 97.8 09/05/17 04:00 35 09/05/17 03:36 79 09/05/17 03:30 98.5 09/05/17 03:00 98.5 09/05/17 02:45 87 30 35 09/05/17 01:09 77 29 35 09/04/17 23:43 98.5 66 19 114/60 100 Mechanical Ventilator 35 98.5 09/04/17 22:35 64 23 35 09/04/17 21:00 67 100/59 09/04/17 21:00 67 22 35 09/04/17 20:00 35 09/04/17 20:00 98.7 67 19 110/59 100 Mechanical Ventilator 35 98.7 09/04/17 20:00 71 09/04/17 18:30 66 27 35 6/23/18 16:54 71 23 35 09/04/17 16:00 35 09/04/17 16:00 35 09/04/17 16:00 66 09/04/17 16:00 96.7 70 22 132/96 100 Mechanical Ventilator 35 96.7 09/04/17 15:00 88 22 35 09/04/17 14:33 70 09/04/17 14:15 35 09/04/17 14:15 99.0 62 20 148/95 99 Mechanical Ventilator 35 99.0 09/04/17 14:14 62 27 113/68 100 Mechanical Ventilator 35 09/04/17 14:09 73 22 35 09/04/17 13:15 98.9 62 16 111/64 100 Mechanical Ventilator 35 98.9 09/04/17 13:00 62 109/57 100 Mechanical Ventilator 09/04/17 12:45 62 21 35 09/04/17 12:45 61 111/65 100 09/04/17 12:30 60 107/61 09/04/17 11:49 60 16 76/62 100 Mechanical Ventilator 35 Intake and Output 09/04/17 09/05/17 19:00 07:00 Intake Total 1660 ml 845.000 ml Output Total 450 ml 800 ml Balance 1210 ml 45.000 ml Intake Free Water 60 ml 150 ml IV Total 1450 ml 305.000 ml Tube Feeding 150 ml 330 ml Other 60 ml Output Urine Total 450 ml 800 ml # Bowel Movements 5 4 Laboratory Tests 09/04/17 12:30: Lactic Acid Level 0.70 09/05/17 03:35: White Blood Count 11.5H, Red Blood Count 4.27L, Hemoglobin 11.4L, Hematocrit 36.0L, Mean Corpuscular Volume 84, Mean Corpuscular Hemoglobin 26.6L, Mean Corpuscular Hemoglobin Concent 31.5L, Red Cell Distribution Width 15.9H, Platelet Count 228, Mean Platelet Volume 8.0, Neutrophils (%) (Auto) 51.0, Lymphocytes (%) (Auto) 19.7L, Monocytes (%) (Auto) 11.7H, Eosinophils (%) (Auto ) 16.8H, Basophils (%) (Auto) 0.8, Sodium Level 139, Potassium Level 3.7, Chloride Level 107, Carbon Dioxide Level 25, Anion Gap 7, Blood Urea Nitrogen 13 , Creatinine 0.9, Estimat Glomerular Filtration Rate > 60, Glucose Level 87, Calcium Level 9.0, Phosphorus Level 3.1, Albumin 2.6L Height (Feet): 5 Height (Inches): 8.00 Weight (Pounds): 150 General Appearance: WD/WN, no apparent distress EENT: PERRL/EOMI Neck: normal alignment Cardiovascular: normal peripheral pulses Respiratory/Chest: no respiratory distress Abdomen: soft Justin Anthony MD Sep 05, 2017 11:09
[2017-09-05 12:00] VITALS: BP 106/55
--- NOTE | 2017-09-05 13:38 | Pulmonolgy Critical Care Note ---
Critical Care - Asmt/Plan Problems: (1) Acute on chronic respiratory failure (2) Sepsis (3) Healthcare associated bacterial pneumonia (4) COPD (chronic obstructive pulmonary disease) (5) [facility] resident (6) Alzheimer disease (7) Feeding by G-tube Respiratory: monitor respiratory rate, adjust FIO2, CXR Cardiac: continue to monitor HR/BP Renal: F/U I&O Infectious Disease: check cultures Gastrointestinal: continue feedings/current rate, hold feedings Endocrine: monitor blood sugar Hematologic: transfuse if hgb<8.5 Neurologic: PRN Ativan, PRN Morphine, keep patient comfortable Prophylaxis: Protonix Notes Reviewed: fire alarm technician, ID Discussed with: nurses, consultants, keycase assemblerlpn care manager - Objective Last 24 Hour Vital Signs Date Time Temp Pulse Resp B/P (MAP) Pulse Ox O2 Delivery O2 Flow Rate FiO2 09/05/17 12:44 64 15 35 09/05/17 12:00 68 09/05/17 12:00 99.1 73 19 106/55 98 Mechanical Ventilator 35 99.1 09/05/17 10:47 67 20 35 09/05/17 09:03 62 113/56 09/05/17 08:53 62 17 35 09/05/17 08:00 62 09/05/17 08:00 35 09/05/17 08:00 98.7 76 22 113/56 98 Mechanical Ventilator 35 98.7 09/05/17 06:30 62 17 35 09/05/17 04:50 72 17 35 09/05/17 04:00 97.8 67 19 103/66 100 Mechanical Ventilator 35 97.8 09/05/17 04:00 35 09/05/17 03:36 79 09/05/17 03:30 98.5 09/05/17 03:00 98.5 09/05/17 02:45 87 30 35 09/05/17 01:09 77 29 35 09/04/17 23:43 98.5 66 19 114/60 100 Mechanical Ventilator 35 98.5 09/04/17 22:35 64 23 35 09/04/17 21:00 67 100/59 09/04/17 21:00 67 22 35 09/04/17 20:00 35 09/04/17 20:00 98.7 67 19 110/59 100 Mechanical Ventilator 35 98.7 09/04/17 20:00 71 09/04/17 18:30 66 27 35 09/04/17 16:54 71 23 35 09/04/17 16:00 35 09/04/17 16:00 35 09/04/17 16:00 66 09/04/17 16:00 96.7 70 22 132/96 100 Mechanical Ventilator 35 96.7 09/04/17 15:00 88 22 35 09/04/17 14:33 70 09/04/17 14:15 35 09/04/17 14:15 99.0 62 20 148/95 99 Mechanical Ventilator 35 99.0 09/04/17 14:14 62 27 113/68 100 Mechanical Ventilator 35 09/04/17 14:09 73 22 35 Status: awake Condition: critical Neck: full ROM Lungs: rales Heart: HR/BP stable Abdomen: soft, active bowel sounds Extremities: no C/C/E Micro: Microbiology Date/Time Source Procedure Growth Status 09/05/17 04:00 Stool Clostridium difficile Toxin Assay - Final Complete 09/04/17 17:30 Urine,Clean Catch Urine Culture - Preliminary NO GROWTH Resulted Critical Care - Subjective ROS Limited/Unobtainable: Yes Condition: critical FI02: 35 Vent Support Breath Rate: 8 Vent Support Mode: IMV/SIMV Vent Tidal Volume: 600 Sputum Amount: Small PEEP: 5.0 PIP: 13 Tube Feeding Amount: 30 I&O: Intake and Output 09/04/17 09/05/17 19:00 07:00 Intake Total 1660 ml 845.000 ml Output Total 450 ml 800 ml Balance 1210 ml 45.000 ml Intake Free Water 60 ml 150 ml IV Total 1450 ml 305.000 ml Tube Feeding 150 ml 330 ml Other 60 ml Output Urine Total 450 ml 800 ml # Bowel Movements 5 4 CXR: right diaphragm is elevated Labs: Laboratory Tests Test 09/05/17 03:35 White Blood Count 11.5 K/UL (4.8-10.8) H Red Blood Count 4.27 M/UL (4.70-6.10) L Hemoglobin 11.4 G/DL (14.2-18.0) L Hematocrit 36.0 % (42.0-52.0) L Mean Corpuscular Volume 84 FL (80-99) Mean Corpuscular Hemoglobin 26.6 PG (27.0-31.0) L Mean Corpuscular Hemoglobin Concent 31.5 G/DL (32.0-36.0) L Red Cell Distribution Width 15.9 % (11.6-14.8) H Platelet Count 228 K/UL (150-450) Mean Platelet Volume 8.0 FL (6.5-10.1) Neutrophils (%) (Auto) 51.0 % (45.0-75.0) Lymphocytes (%) (Auto) 19.7 % (20.0-45.0) L Monocytes (%) (Auto) 11.7 % (1.0-10.0) H Eosinophils (%) (Auto) 16.8 % (0.0-3.0) H Basophils (%) (Auto) 0.8 % (0.0-2.0) Sodium Level 139 MMOL/L (136-145) Potassium Level 3.7 MMOL/L (3.5-5.1) Chloride Level 107 MMOL/L (98-107) Carbon Dioxide Level 25 MMOL/L (21-32) Anion Gap 7 mmol/L (5-15) Blood Urea Nitrogen 13 mg/dL (7-18) Creatinine 0.9 MG/DL (0.55-1.30) Estimat Glomerular Filtration Rate > 60 mL/min (>60) Glucose Level 87 MG/DL (74-106) Calcium Level 9.0 MG/DL (8.5-10.1) Phosphorus Level 3.1 MG/DL (2.5-4.9) Albumin 2.6 G/DL (3.4-5.0) L Rocio Uriarte MD Sep 05, 2017 13:38
[2017-09-05] MEDS: Vancomycin 750mg/NS 250ml 250 ML IVPB SCH ×3 (15:21→23:51)
[2017-09-05 16:00] VITALS: BP 108/69
[2017-09-05 20:00] VITALS: BP 160/87
[2017-09-06] VITALS: BP 147/86
[2017-09-06] MEDS: Meropenem 1 GM in NS 55 ML IVPB SCH ×3 (02:59→17:43)
[2017-09-06 04:00] VITALS: BP 111/53
[2017-09-06 05:53] LABS: BASOPHILS % (AUTO) 0.6 % (0.0-2.0); EOSINOPHILS % (AUTO) 19.9 % (0.0-3.0); HEMATOCRIT 38.4 % (42.0-52.0); HEMOGLOBIN 12.3 G/DL (14.2-18.0); LYMPHOCYTES % (AUTO) 20.2 % (20.0-45.0); MEAN CORPUSCULAR VOLUME 84 FL (80-99); MONOCYTES % (AUTO) 8.9 % (1.0-10.0); NEUTROPHILS % (AUTO) 50.5 % (45.0-75.0); PLATELET COUNT 267 K/UL (150-450); RED BLOOD COUNT 4.56 M/UL (4.70-6.10); RED CELL DISTRIBUTION WIDTH 15.5 % (11.6-14.8); WHITE BLOOD COUNT 12.3 K/UL (4.8-10.8)
[2017-09-06 06:27] LABS: ALANINE AMINOTRANSFERASE 30 U/L (12-78); ALBUMIN 2.7 G/DL (3.4-5.0); ALBUMIN/GLOBULIN RATIO 0.6 (1.0-2.7); ALKALINE PHOSPHATASE 123 U/L (46-116); ANION GAP 7 mmol/L (5-15); ASPARTATE AMINO TRANSFERASE 29 U/L (15-37); BILIRUBIN,TOTAL 0.5 MG/DL (0.2-1.0); BLOOD UREA NITROGEN 13 mg/dL (7-18); CALCIUM 8.8 MG/DL (8.5-10.1); CARBON DIOXIDE 25 MMOL/L (21-32); CHLORIDE 106 MMOL/L (98-107); CREATININE 0.9 MG/DL (0.55-1.30); POTASSIUM 3.7 MMOL/L (3.5-5.1); SODIUM 138 MMOL/L (136-145)
[2017-09-06 08:00] VITALS: BP 139/91
[2017-09-06] MEDS: Pantoprazole Inj IV SCH (09:59)
[2017-09-06] MEDS: Heparin 5000 units/ml inj SUBQ SCH ×2 (10:02→20:35)
--- NOTE | 2017-09-06 10:47 | Diagnostic Imaging Report ---
Indication: Dyspnea Technique: One view of the chest Comparison: 09/04/2017 Findings: The right hemidiaphragm is elevated, as previously. Atelectatic changes are seen at the right lung base. Atelectasis is also seen in the left perihilar region. The lungs and pleural spaces are otherwise clear. Tracheostomy is again demonstrated. Findings are unchanged Impression: Unchanged, over one day, findings as above. .
--- NOTE | 2017-09-06 10:56 | Pulmonolgy Critical Care Note ---
Critical Care - Asmt/Plan Problems: (1) Acute on chronic respiratory failure (2) Sepsis (3) Healthcare associated bacterial pneumonia (4) COPD (chronic obstructive pulmonary disease) (5) snf resident (6) Alzheimer disease (7) Feeding by G-tube Respiratory: monitor respiratory rate, adjust FIO2, CXR Cardiac: continue to monitor HR/BP Renal: F/U I&O, keep IV fluid Infectious Disease: check cultures Endocrine: check TSH, continue sliding scale insulin Hematologic: monitor H/H, transfuse if hgb<8.5 Neurologic: PRN Ativan, keep patient comfortable Affect: PRN ativan Prophylaxis: Protonix Notes Reviewed: recycle driver, cardio, renal Discussed with: consultants, case fillerlearning manager - Objective Last 24 Hour Vital Signs Date Time Temp Pulse Resp B/P (MAP) Pulse Ox O2 Delivery O2 Flow Rate FiO2 09/06/17 09:59 88 139/91 09/06/17 09:05 88 19 35 09/06/17 08:00 99.2 84 20 139/91 98 Mechanical Ventilator 35 99.2 09/06/17 08:00 35 09/06/17 07:28 109 28 35 09/06/17 05:08 91 22 35 09/06/17 04:00 35 09/06/17 04:00 98.7 79 19 111/53 99 Mechanical Ventilator 35 98.7 09/06/17 04:00 76 09/06/17 03:21 73 22 35 09/06/17 01:22 76 25 35 09/06/17 00:00 35 09/06/17 00:00 99.8 91 25 147/86 99 Mechanical Ventilator 35 99.8 09/06/17 00:00 75 09/05/17 23:23 76 22 35 09/05/17 21:15 69 11 35 09/05/17 20:34 70 160/87 09/05/17 20:00 98.7 70 20 160/87 98 Mechanical Ventilator 35 98.7 09/05/17 19:24 75 19 35 09/05/17 17:00 35 09/05/17 16:30 72 23 35 09/05/17 16:01 78 09/05/17 16:00 99.1 75 16 108/69 99 Mechanical Ventilator 35 99.1 09/05/17 15:03 61 15 35 6/24/18 12:44 64 15 35 09/05/17 12:00 68 09/05/17 12:00 35 09/05/17 12:00 99.1 73 19 106/55 98 Mechanical Ventilator 35 99.1 Status: obtunded Condition: critical HEENT: atraumatic Neck: full ROM Lungs: chest wall tender Heart: HR/BP stable Abdomen: feeding tube Extremities: edema Micro: Microbiology Date/Time Source Procedure Growth Status 09/04/17 09:30 Blood Blood Culture - Preliminary NO GROWTH AFTER 24 HOURS Resulted 09/04/17 09:20 Blood Blood Culture - Preliminary Staphylococcus Sp Coag Neg Resulted 09/04/17 17:30 Sputum Gram Stain - Final Resulted 09/04/17 17:30 Sputum Sputum Culture Pending Resulted 09/04/17 09:20 Nasal Nares MRSA Culture - Final NO METHICILLIN RESISTANT STAPH AUREUS... Complete 09/05/17 04:00 Stool Clostridium difficile Toxin Assay - Final Complete 09/04/17 17:30 Urine,Clean Catch Urine Culture - Preliminary NO GROWTH AFTER 24 HOURS Resulted 09/04/17 09:20 Rectum VRE Culture - Final Enterococcus Faecalis - Vre Complete Critical Care - Subjective ROS Limited/Unobtainable: Yes Condition: critical EKG Rhythm: Sinus Rhythm FI02: 35 Vent Support Breath Rate: 8 Vent Support Mode: IMV/SIMV Vent Tidal Volume: 600 Sputum Amount: Moderate PEEP: 5.0 PIP: 17 Tube Feeding Amount: 30 I&O: Intake and Output 09/05/17 09/06/17 19:00 07:00 Intake Total 843.272 ml 790 ml Balance 843.272 ml 790 ml Intake Free Water 150 ml 100 ml IV Total 333.272 ml 360 ml Tube Feeding 360 ml 330 ml # Bowel Movements 6 6 CXR: no change Labs: Laboratory Tests Test 09/05/17 23:00 09/06/17 05:12 Vancomycin Level Trough 11.6 ug/mL (5.0-12.0) White Blood Count 12.3 K/UL (4.8-10.8) H Red Blood Count 4.56 M/UL (4.70-6.10) L Hemoglobin 12.3 G/DL (14.2-18.0) L Hematocrit 38.4 % (42.0-52.0) L Mean Corpuscular Volume 84 FL (80-99) Mean Corpuscular Hemoglobin 26.9 PG (27.0-31.0) L Mean Corpuscular Hemoglobin Concent 31.9 G/DL (32.0-36.0) L Red Cell Distribution Width 15.5 % (11.6-14.8) H Platelet Count 267 K/UL (150-450) Mean Platelet Volume 7.7 FL (6.5-10.1) Neutrophils (%) (Auto) 50.5 % (45.0-75.0) Lymphocytes (%) (Auto) 20.2 % (20.0-45.0) Monocytes (%) (Auto) 8.9 % (1.0-10.0) Eosinophils (%) (Auto) 19.9 % (0.0-3.0) H Basophils (%) (Auto) 0.6 % (0.0-2.0) Sodium Level 138 MMOL/L (136-145) Potassium Level 3.7 MMOL/L (3.5-5.1) Chloride Level 106 MMOL/L (98-107) Carbon Dioxide Level 25 MMOL/L (21-32) Anion Gap 7 mmol/L (5-15) Blood Urea Nitrogen 13 mg/dL (7-18) Creatinine 0.9 MG/DL (0.55-1.30) Estimat Glomerular Filtration Rate > 60 mL/min (>60) Glucose Level 90 MG/DL (74-106) Calcium Level 8.8 MG/DL (8.5-10.1) Total Bilirubin 0.5 MG/DL (0.2-1.0) Aspartate Amino Transf (AST/SGOT) 29 U/L (15-37) Alanine Aminotransferase (ALT/SGPT) 30 U/L (12-78) Alkaline Phosphatase 123 U/L (46-116) H Pro-B-Type Natriuretic Peptide 182 pg/mL (0-125) H Total Protein 7.4 G/DL (6.4-8.2) Albumin 2.7 G/DL (3.4-5.0) L Globulin 4.7 g/dL Albumin/Globulin Ratio 0.6 (1.0-2.7) L Rocio Uriarte MD Sep 06, 2017 10:56
[2017-09-06 12:00] VITALS: BP 95/77
[2017-09-06] MEDS: Vancomycin 750mg/NS 250ml 250 ML IVPB SCH ×2 (12:19→23:59)
--- NOTE | 2017-09-06 12:28 | General Progress Note ---
Assessment/Plan Problem List: (1) Sepsis ICD Codes: A41.9 - Sepsis, unspecified organism SNOMED: 45662661 (2) Acute on chronic respiratory failure ICD Codes: J96.20 - Acute and chronic respiratory failure, unspecified whether with hypoxia or hypercapnia SNOMED: 23940241 (3) Anemia ICD Codes: D64.9 - Anemia, unspecified SNOMED: 238738676 Status: stable, progressing Assessment/Plan vent abx cbc bmp am Subjective Constitutional: Reports: weakness Allergies: Coded Allergies: No Known Allergies (Unverified , 10/20/16) All Systems: reviewed and negative except above Subjective trach vent altered Objective Last 24 Hour Vital Signs Date Time Temp Pulse Resp B/P (MAP) Pulse Ox O2 Delivery O2 Flow Rate FiO2 09/06/17 12:00 35 09/06/17 11:27 76 23 35 09/06/17 09:59 88 139/91 09/06/17 09:05 88 19 35 09/06/17 08:00 99.2 84 20 139/91 98 Mechanical Ventilator 35 99.2 09/06/17 08:00 35 09/06/17 07:28 109 28 35 09/06/17 05:08 91 22 35 09/06/17 04:00 35 09/06/17 04:00 98.7 79 19 111/53 99 Mechanical Ventilator 35 98.7 09/06/17 04:00 76 09/06/17 03:21 73 22 35 09/06/17 01:22 76 25 35 09/06/17 00:00 35 09/06/17 00:00 99.8 91 25 147/86 99 Mechanical Ventilator 35 99.8 09/06/17 00:00 75 09/05/17 23:23 76 22 35 09/05/17 21:15 69 11 35 09/05/17 20:34 70 160/87 09/05/17 20:00 98.7 70 20 160/87 98 Mechanical Ventilator 35 98.7 09/05/17 19:24 75 19 35 09/05/17 17:00 35 09/05/17 16:30 72 23 35 09/05/17 16:01 78 09/05/17 16:00 99.1 75 16 108/69 99 Mechanical Ventilator 35 99.1 09/05/17 15:03 61 15 35 09/05/17 12:44 64 15 35 Intake and Output 09/05/17 09/06/17 19:00 07:00 Intake Total 843.272 ml 830 ml Balance 843.272 ml 830 ml Intake Free Water 150 ml 110 ml IV Total 333.272 ml 360 ml Tube Feeding 360 ml 360 ml # Bowel Movements 6 6 Laboratory Tests 09/05/17 23:00: Vancomycin Level Trough 11.6 09/06/17 05:12: White Blood Count 12.3H, Red Blood Count 4.56L, Hemoglobin 12.3L, Hematocrit 38.4L, Mean Corpuscular Volume 84, Mean Corpuscular Hemoglobin 26.9L, Mean Corpuscular Hemoglobin Concent 31.9L, Red Cell Distribution Width 15.5H, Platelet Count 267, Mean Platelet Volume 7.7, Neutrophils (%) (Auto) 50.5, Lymphocytes (%) (Auto) 20.2, Monocytes (%) (Auto) 8.9, Eosinophils (%) (Auto) 19.9H, Basophils (%) (Auto) 0.6, Sodium Level 138, Potassium Level 3.7, Chloride Level 106, Carbon Dioxide Level 25, Anion Gap 7, Blood Urea Nitrogen 13 , Creatinine 0.9, Estimat Glomerular Filtration Rate > 60, Glucose Level 90, Calcium Level 8.8, Total Bilirubin 0.5, Aspartate Amino Transf (AST/SGOT) 29, Alanine Aminotransferase (ALT/SGPT) 30, Alkaline Phosphatase 123H, Pro-B-Type Natriuretic Peptide 182H, Total Protein 7.4, Albumin 2.7L, Globulin 4.7, Albumin /Globulin Ratio 0.6L Height (Feet): 5 Height (Inches): 8.00 Weight (Pounds): 150 General Appearance: lethargic EENT: normal ENT inspection Neck: normal alignment Cardiovascular: normal peripheral pulses, normal rate, regular rhythm Respiratory/Chest: chest wall non-tender, decreased breath sounds Abdomen: normal bowel sounds, non tender, soft Extremities: normal inspection Edema: no edema noted Arm (L), no edema noted Arm (R), no edema noted Leg (L), no edema noted Leg (R), no edema noted Pedal (L), no edema noted Pedal (R), no edema noted Generalized Neurologic: motor weakness Skin: normal pigmentation, warm/dry Alex Grey DO Sep 06, 2017 12:28
--- NOTE | 2017-09-06 14:01 | General Progress Note ---
Assessment/Plan Status: stable Assessment/Plan # Leukocytosis secondary to underlying infection. --> wbc improving --> continue abx, monitor for improvement. # Sepsis --> Pt on IV VANCOMYCIN Q12 --> monitor for improvement. # Anemia due to underlying chronic disease. --> anemia w/u has been reviewed, will rend daily --> hgb goal >7 # Coagulopathy likely secondary to decreased p.o. intake. # History of pneumonia. --> Imaging reviewed. Decreased lung volume. Subjective Date patient seen: Sep 06, 2017 Allergies: Coded Allergies: No Known Allergies (Unverified , 10/20/16) All Systems: reviewed and negative except above Subjective No overnight events. NAD. No fever, chills, sob. Objective Last 24 Hour Vital Signs Date Time Temp Pulse Resp B/P (MAP) Pulse Ox O2 Delivery O2 Flow Rate FiO2 09/06/17 13:16 63 10 35 09/06/17 12:00 99.1 68 12 95/77 100 Mechanical Ventilator 35 99.1 09/06/17 12:00 35 09/06/17 11:27 76 23 35 09/06/17 09:59 88 139/91 09/06/17 09:05 88 19 35 09/06/17 08:00 99.2 84 20 139/91 98 Mechanical Ventilator 35 99.2 09/06/17 08:00 35 09/06/17 07:28 109 28 35 09/06/17 05:08 91 22 35 09/06/17 04:00 35 09/06/17 04:00 98.7 79 19 111/53 99 Mechanical Ventilator 35 98.7 09/06/17 04:00 76 09/06/17 03:21 73 22 35 09/06/17 01:22 76 25 35 09/06/17 00:00 35 09/06/17 00:00 99.8 91 25 147/86 99 Mechanical Ventilator 35 99.8 09/06/17 00:00 75 09/05/17 23:23 76 22 35 09/05/17 21:15 69 11 35 09/05/17 20:34 70 160/87 09/05/17 20:00 98.7 70 20 160/87 98 Mechanical Ventilator 35 98.7 09/05/17 19:24 75 19 35 09/05/17 17:00 35 09/05/17 16:30 72 23 35 09/05/17 16:01 78 09/05/17 16:00 99.1 75 16 108/69 99 Mechanical Ventilator 35 99.1 09/05/17 15:03 61 15 35 Intake and Output 09/05/17 09/06/17 19:00 07:00 Intake Total 843.272 ml 830 ml Balance 843.272 ml 830 ml Intake Free Water 150 ml 110 ml IV Total 333.272 ml 360 ml Tube Feeding 360 ml 360 ml # Bowel Movements 6 6 Laboratory Tests 09/05/17 23:00: Vancomycin Level Trough 11.6 09/06/17 05:12: White Blood Count 12.3H, Red Blood Count 4.56L, Hemoglobin 12.3L, Hematocrit 38.4L, Mean Corpuscular Volume 84, Mean Corpuscular Hemoglobin 26.9L, Mean Corpuscular Hemoglobin Concent 31.9L, Red Cell Distribution Width 15.5H, Platelet Count 267, Mean Platelet Volume 7.7, Neutrophils (%) (Auto) 50.5, Lymphocytes (%) (Auto) 20.2, Monocytes (%) (Auto) 8.9, Eosinophils (%) (Auto) 19.9H, Basophils (%) (Auto) 0.6, Sodium Level 138, Potassium Level 3.7, Chloride Level 106, Carbon Dioxide Level 25, Anion Gap 7, Blood Urea Nitrogen 13 , Creatinine 0.9, Estimat Glomerular Filtration Rate > 60, Glucose Level 90, Calcium Level 8.8, Total Bilirubin 0.5, Aspartate Amino Transf (AST/SGOT) 29, Alanine Aminotransferase (ALT/SGPT) 30, Alkaline Phosphatase 123H, Pro-B-Type Natriuretic Peptide 182H, Total Protein 7.4, Albumin 2.7L, Globulin 4.7, Albumin /Globulin Ratio 0.6L Height (Feet): 5 Height (Inches): 8.00 Weight (Pounds): 150 General Appearance: WD/WN, no apparent distress EENT: PERRL/EOMI Neck: normal alignment Cardiovascular: normal peripheral pulses Respiratory/Chest: no respiratory distress Abdomen: no mass Justin Anthony MD Sep 06, 2017 14:01
[2017-09-06 16:00] VITALS: BP 105/58
--- NOTE | 2017-09-06 16:48 | Infectious Diseases Prog Note ---
Assessment/Plan Assessment/Plan ASSESSMENT: The patient is a 72-year-old male with multiple medical problems who was admitted to this medical center with: 1. Sepsis. 2. Leukocytosis. 3. Status post transient hypertension. 4. Rule out urinary tract infection and ventilator-associated pneumonia and bacteremia. -u.a wbc 2/4, nit neg, leuk +2; ucx NTD -Bcx NTD -sp cx p -CXR: The right hemidiaphragm is elevated, as previously. Atelectatic changes are seen at the right lung base. Atelectasis is also seen in the left perihilar region. The lungs and pleural spaces are otherwise clear -cdiff neg -. History of aspiration pneumonia. -. Possible urinary tract infection/history of ESBL E. coli. -. History of respiratory failure, on the vent. -. Status post PEG, dysphagia. -. History of Aerococcus bacteremia. -. History of ESBL E. coli and healthcare-associated pneumonia. -. Osteoarthritis. -. Hypertension. -. Chronic obstructive pulmonary disease. -. GERD. -. Helicobacter pylori in the past. -. Dementia/psychosis. PLAN: 1. We will continue the patient on IV vancomycin and meropenem #3 in view of history of recent extended-spectrum beta-lactamases Escherichia coli urinary tract infection and pneumonia. -09/04 SP Cefepime and Flagyl x1 03/22 SP Ancef x1 (periop) 03/21 SP Meropenem #14 03/20 SP IV Vanco #10 03/15/17 SP Dapto x1 03/08 SP vancomycin d# 5 03/07/17 SP Zosyn d# 4 2. Monitor CBC. 3. Monitor BMP. 4. Monitor cultures (blood, urine, and sputum). 5. Monitor chest x-ray. 6. Monitor the patient's clinical course and laboratories and based on those we will do further recommendation. Thank you, Dr. Anthony, for allowing me to participate in the care of this patient. I will follow the patient with you during this hospitalization. Subjective Allergies: Coded Allergies: No Known Allergies (Unverified , 10/20/16) Subjective afebrile at 4l NC Objective Vital Signs Last 24 Hour Vital Signs Date Time Temp Pulse Resp B/P (MAP) Pulse Ox O2 Delivery O2 Flow Rate FiO2 09/06/17 15:56 88 24 35 09/06/17 13:16 63 10 35 09/06/17 12:00 99.1 68 12 95/77 100 Mechanical Ventilator 35 99.1 09/06/17 12:00 66 09/06/17 12:00 35 09/06/17 11:27 76 23 35 09/06/17 09:59 88 139/91 09/06/17 09:05 88 19 35 09/06/17 08:00 90 09/06/17 08:00 99.2 84 20 139/91 98 Mechanical Ventilator 35 99.2 09/06/17 08:00 35 09/06/17 07:28 109 28 35 09/06/17 05:08 91 22 35 09/06/17 04:00 35 09/06/17 04:00 98.7 79 19 111/53 99 Mechanical Ventilator 35 98.7 09/06/17 04:00 76 09/06/17 03:21 73 22 35 09/06/17 01:22 76 25 35 09/06/17 00:00 35 09/06/17 00:00 99.8 91 25 147/86 99 Mechanical Ventilator 35 99.8 09/06/17 00:00 75 09/05/17 23:23 76 22 35 09/05/17 21:15 69 11 35 09/05/17 20:34 70 160/87 09/05/17 20:00 98.7 70 20 160/87 98 Mechanical Ventilator 35 98.7 09/05/17 19:24 75 19 35 09/05/17 17:00 35 Height (Feet): 5 Height (Inches): 8.00 Weight (Pounds): 150 Objective HEENT: Mild pale conjunctivae. No icterus. NECK: Trach in place. CHEST: Coarse breathing sounds. HEART: S1 and S2. ABDOMEN: Soft. PEG tube in place. EXTREMITIES: No cyanosis. NEUROLOGIC: Awake and alert. Microbiology Date/Time Source Procedure Growth Status 09/04/17 09:30 Blood Blood Culture - Preliminary NO GROWTH AFTER 24 HOURS Resulted 09/04/17 09:20 Blood Blood Culture - Preliminary Staphylococcus Sp Coag Neg Resulted 09/04/17 17:30 Sputum Gram Stain - Final Resulted 09/04/17 17:30 Sputum Sputum Culture Pending Resulted 09/04/17 09:20 Nasal Nares MRSA Culture - Final NO METHICILLIN RESISTANT STAPH AUREUS... Complete 09/05/17 04:00 Stool Clostridium difficile Toxin Assay - Final Complete 09/04/17 17:30 Urine,Clean Catch Urine Culture - Preliminary NO GROWTH AFTER 24 HOURS Resulted 09/04/17 09:20 Rectum VRE Culture - Final Enterococcus Faecalis - Vre Complete Laboratory Tests Test 09/05/17 23:00 09/06/17 05:12 Vancomycin Level Trough 11.6 ug/mL (5.0-12.0) White Blood Count 12.3 K/UL (4.8-10.8) H Red Blood Count 4.56 M/UL (4.70-6.10) L Hemoglobin 12.3 G/DL (14.2-18.0) L Hematocrit 38.4 % (42.0-52.0) L Mean Corpuscular Volume 84 FL (80-99) Mean Corpuscular Hemoglobin 26.9 PG (27.0-31.0) L Mean Corpuscular Hemoglobin Concent 31.9 G/DL (32.0-36.0) L Red Cell Distribution Width 15.5 % (11.6-14.8) H Platelet Count 267 K/UL (150-450) Mean Platelet Volume 7.7 FL (6.5-10.1) Neutrophils (%) (Auto) 50.5 % (45.0-75.0) Lymphocytes (%) (Auto) 20.2 % (20.0-45.0) Monocytes (%) (Auto) 8.9 % (1.0-10.0) Eosinophils (%) (Auto) 19.9 % (0.0-3.0) H Basophils (%) (Auto) 0.6 % (0.0-2.0) Sodium Level 138 MMOL/L (136-145) Potassium Level 3.7 MMOL/L (3.5-5.1) Chloride Level 106 MMOL/L (98-107) Carbon Dioxide Level 25 MMOL/L (21-32) Anion Gap 7 mmol/L (5-15) Blood Urea Nitrogen 13 mg/dL (7-18) Creatinine 0.9 MG/DL (0.55-1.30) Estimat Glomerular Filtration Rate > 60 mL/min (>60) Glucose Level 90 MG/DL (74-106) Calcium Level 8.8 MG/DL (8.5-10.1) Total Bilirubin 0.5 MG/DL (0.2-1.0) Aspartate Amino Transf (AST/SGOT) 29 U/L (15-37) Alanine Aminotransferase (ALT/SGPT) 30 U/L (12-78) Alkaline Phosphatase 123 U/L (46-116) H Pro-B-Type Natriuretic Peptide 182 pg/mL (0-125) H Total Protein 7.4 G/DL (6.4-8.2) Albumin 2.7 G/DL (3.4-5.0) L Globulin 4.7 g/dL Albumin/Globulin Ratio 0.6 (1.0-2.7) L Current Medications Medications (Trade) Dose Ordered Sig/Ant Route PRN Reason Start Time Stop Time Status Last Admin Dose Admin Acetaminophen (Tylenol) 650 mg Q4H PRN ORAL FEVER 09/04/17 12:30 10/04/17 12:29 Albuterol/ Ipratropium (Albuterol/ Ipratropium) 3 ml Q4H PRN HHN Shortness of Breath 09/04/17 12:30 09/09/17 12:29 Carvedilol (Coreg) 3.125 mg EVERY 12 HOURS GT 09/04/17 21:00 10/04/17 20:59 09/06/17 09:59 Dextrose (Dextrose 50%) STAT PRN IV Hypoglycemia 09/04/17 12:30 10/04/17 12:29 Heparin Sodium (Porcine) (Heparin 5000 units/ml) 5,000 units EVERY 12 HOURS SUBQ 09/04/17 21:00 10/04/17 20:59 09/06/17 10:02 Lorazepam (Ativan 2mg/ml 1ml) 2 mg Q2H PRN IV For Anxiety 09/04/17 12:30 09/11/17 12:29 Meropenem 1 gm/ Sodium Chloride 55 ml @ 110 mls/hr Q8H IVPB 09/04/17 18:00 09/09/17 17:59 09/06/17 09:59 Morphine Sulfate (Morphine Sulfate) 4 mg Q4H PRN IVP Severe Pain (Pain Scale 7-10) 09/04/17 12:30 09/11/17 12:29 09/05/17 03:00 Ondansetron HCl (Zofran) 4 mg Q6H PRN IVP Nausea & Vomiting 6/23/18 12:30 10/04/17 12:29 09/05/17 23:51 Pantoprazole (Protonix) 40 mg DAILY IV 09/05/17 09:00 10/05/17 08:59 09/06/17 09:59 Polyethylene Glycol (Miralax) 17 gm DAILYPRN PRN ORAL Constipation 09/04/17 12:30 10/04/17 12:29 Vancomycin/Sodium Chloride 250 ml @ 166.636 mls/hr Q12H IVPB 09/05/17 00:00 09/10/17 00:00 09/06/17 12:19 Alise Polanco M.D. Sep 06, 2017 16:48
[2017-09-06] MEDS ORDERED: Sodium Chloride 3% 4ml Nebul Soln INH ONE (17:30)
[2017-09-06 20:00] VITALS: BP 123/61
[2017-09-07] VITALS: BP 130/68
[2017-09-07] MEDS: Meropenem 1 GM in NS 55 ML IVPB SCH ×3 (01:54→17:04)
[2017-09-07 04:00] VITALS: BP 122/62
[2017-09-07 06:11] LABS: EOSINOPHILS % (AUTO) 18.6 % (0.0-3.0); HEMOGLOBIN 10.6 G/DL (14.2-18.0); MEAN CORPUSCULAR VOLUME 84 FL (80-99); MONOCYTES % (AUTO) 8.9 % (1.0-10.0); NEUTROPHILS % (AUTO) 47.5 % (45.0-75.0); PLATELET COUNT 241 K/UL (150-450); RED BLOOD COUNT 4.05 M/UL (4.70-6.10); RED CELL DISTRIBUTION WIDTH 15.4 % (11.6-14.8); WHITE BLOOD COUNT 11.1 K/UL (4.8-10.8)
[2017-09-07 06:46] LABS: ANION GAP 6 mmol/L (5-15); BLOOD UREA NITROGEN 15 mg/dL (7-18); CALCIUM 8.6 MG/DL (8.5-10.1); CARBON DIOXIDE 26 MMOL/L (21-32); CHLORIDE 107 MMOL/L (98-107); CREATININE 0.8 MG/DL (0.55-1.30); POTASSIUM 3.7 MMOL/L (3.5-5.1); SODIUM 139 MMOL/L (136-145)
[2017-09-07 08:00] VITALS: BP 114/67
[2017-09-07] MEDS: Pantoprazole Inj IV SCH (09:27)
[2017-09-07] MEDS: Heparin 5000 units/ml inj SUBQ SCH ×2 (09:30→20:15)
--- NOTE | 2017-09-07 09:46 | Pulmonolgy Critical Care Note ---
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 baker, ID Discussed with: nurses, consultants, counseling case managervaluation manager - Objective Last 24 Hour Vital Signs Date Time Temp Pulse Resp B/P (MAP) Pulse Ox O2 Delivery O2 Flow Rate FiO2 09/07/17 09:27 68 114/67 09/07/17 08:00 35 09/07/17 08:00 98.7 68 20 114/67 100 Mechanical Ventilator 35 98.7 09/07/17 07:17 66 22 35 09/07/17 05:07 62 13 35 09/07/17 04:00 60 09/07/17 04:00 35 09/07/17 04:00 99.0 64 20 122/62 99 Mechanical Ventilator 35 99.0 09/07/17 02:56 83 16 35 09/07/17 00:51 68 16 35 09/07/17 00:00 98.8 75 20 130/68 99 Mechanical Ventilator 35 98.8 09/07/17 00:00 71 09/06/17 22:55 65 16 35 09/06/17 20:57 68 19 35 09/06/17 20:33 70 123/61 09/06/17 20:00 98.9 62 20 123/61 99 Mechanical Ventilator 35 98.9 09/06/17 20:00 35 09/06/17 20:00 60 09/06/17 18:45 71 14 35 09/06/17 16:58 70 16 35 09/06/17 16:00 68 09/06/17 16:00 98.8 68 20 105/58 99 Mechanical Ventilator 35 98.8 09/06/17 16:00 35 09/06/17 15:56 88 24 35 09/06/17 13:16 63 10 35 09/06/17 12:00 99.1 68 12 95/77 100 Mechanical Ventilator 35 99.1 09/06/17 12:00 66 09/06/17 12:00 35 09/06/17 11:27 76 23 35 09/06/17 09:59 88 139/91 Status: somnolent Condition: critical HEENT: atraumatic Neck: full ROM Lungs: chest wall tender Heart: HR/BP unstable Abdomen: soft, non-tender, active bowel sounds, feeding tube Decubiti: stage Micro: Microbiology Date/Time Source Procedure Growth Status 09/05/17 15:42 Blood Blood Culture - Preliminary NO GROWTH AFTER 24 HOURS Resulted 09/05/17 15:38 Blood Blood Culture - Preliminary NO GROWTH AFTER 24 HOURS Resulted 09/04/17 17:30 Sputum Gram Stain - Final Resulted 09/04/17 17:30 Sputum Culture - Preliminary Gram Negative Bacillus 1 Gram Negative Bacillus 2 Resulted 09/05/17 04:00 Stool Clostridium difficile Toxin Assay - Final Complete 09/04/17 17:30 Urine,Clean Catch Urine Culture - Preliminary NO GROWTH AFTER 24 HOURS Resulted Critical Care - Subjective ROS Limited/Unobtainable: Yes Condition: critical FI02: 35 Vent Support Breath Rate: 8 Vent Support Mode: IMV/SIMV Vent Tidal Volume: 600 Sputum Amount: Moderate PEEP: 5.0 PIP: 19 Tube Feeding Amount: 30 I&O: Intake and Output 09/06/17 09/07/17 19:00 07:00 Intake Total 770.000 ml 665.0 ml Output Total 500 ml 400 ml Balance 270.000 ml 265.0 ml Intake Free Water 50 ml IV Total 360.000 ml 305.0 ml Tube Feeding 360 ml 360 ml Output Urine Total 500 ml 400 ml # Bowel Movements 5 2 CXR: no change Labs: Laboratory Tests Test 09/07/17 04:52 White Blood Count 11.1 K/UL (4.8-10.8) H Red Blood Count 4.05 M/UL (4.70-6.10) L Hemoglobin 10.6 G/DL (14.2-18.0) L Hematocrit 34.0 % (42.0-52.0) L Mean Corpuscular Volume 84 FL (80-99) Mean Corpuscular Hemoglobin 26.2 PG (27.0-31.0) L Mean Corpuscular Hemoglobin Concent 31.2 G/DL (32.0-36.0) L Red Cell Distribution Width 15.4 % (11.6-14.8) H Platelet Count 241 K/UL (150-450) Mean Platelet Volume 7.4 FL (6.5-10.1) Neutrophils (%) (Auto) 47.5 % (45.0-75.0) Lymphocytes (%) (Auto) 24.0 % (20.0-45.0) Monocytes (%) (Auto) 8.9 % (1.0-10.0) Eosinophils (%) (Auto) 18.6 % (0.0-3.0) H Basophils (%) (Auto) 1.0 % (0.0-2.0) Sodium Level 139 MMOL/L (136-145) Potassium Level 3.7 MMOL/L (3.5-5.1) Chloride Level 107 MMOL/L (98-107) Carbon Dioxide Level 26 MMOL/L (21-32) Anion Gap 6 mmol/L (5-15) Blood Urea Nitrogen 15 mg/dL (7-18) Creatinine 0.8 MG/DL (0.55-1.30) Estimat Glomerular Filtration Rate > 60 mL/min (>60) Glucose Level 102 MG/DL (74-106) Calcium Level 8.6 MG/DL (8.5-10.1) Rocio Uriarte MD Sep 07, 2017 09:46
[2017-09-07] MEDS: Vancomycin 750mg/NS 250ml 250 ML IVPB SCH (11:51)
[2017-09-07 12:00] VITALS: BP 113/48
--- NOTE | 2017-09-07 12:29 | General Progress Note ---
Assessment/Plan Status: unchanged Assessment/Plan # Leukocytosis secondary to underlying infection. --> wbc improving --> continue abx, monitor for improvement. # Sepsis --> Pt on IV VANCOMYCIN Q12 --> monitor for improvement. # Anemia due to underlying chronic disease. --> anemia w/u has been reviewed, will rend daily --> hgb goal >7 # Coagulopathy likely secondary to decreased p.o. intake. # History of pneumonia. --> Imaging reviewed. Decreased lung volume. Subjective Date patient seen: Sep 07, 2017 Allergies: Coded Allergies: No Known Allergies (Unverified , 10/20/16) All Systems: reviewed and negative except above Subjective No overnight events. NAD. No fever, chills, sob. Vitals are stable. Objective Last 24 Hour Vital Signs Date Time Temp Pulse Resp B/P (MAP) Pulse Ox O2 Delivery O2 Flow Rate FiO2 09/07/17 12:00 35 09/07/17 11:19 6 14 35 09/07/17 09:27 68 114/67 09/07/17 09:27 62 15 35 09/07/17 08:00 35 09/07/17 08:00 98.7 68 20 114/67 100 Mechanical Ventilator 35 98.7 09/07/17 08:00 63 09/07/17 07:17 66 22 35 09/07/17 05:07 62 13 35 09/07/17 04:00 60 09/07/17 04:00 35 09/07/17 04:00 99.0 64 20 122/62 99 Mechanical Ventilator 35 99.0 09/07/17 02:56 83 16 35 09/07/17 00:51 68 16 35 09/07/17 00:00 98.8 75 20 130/68 99 Mechanical Ventilator 35 98.8 09/07/17 00:00 71 09/06/17 22:55 65 16 35 09/06/17 20:57 68 19 35 09/06/17 20:33 70 123/61 09/06/17 20:00 98.9 62 20 123/61 99 Mechanical Ventilator 35 98.9 09/06/17 20:00 35 09/06/17 20:00 60 09/06/17 18:45 71 14 35 09/06/17 16:58 70 16 35 09/06/17 16:00 68 09/06/17 16:00 98.8 68 20 105/58 99 Mechanical Ventilator 35 98.8 09/06/17 16:00 35 09/06/17 15:56 88 24 35 09/06/17 13:16 63 10 35 Intake and Output 09/06/17 09/07/17 19:00 07:00 Intake Total 770.000 ml 665.0 ml Output Total 500 ml 400 ml Balance 270.000 ml 265.0 ml Intake Free Water 50 ml IV Total 360.000 ml 305.0 ml Tube Feeding 360 ml 360 ml Output Urine Total 500 ml 400 ml # Bowel Movements 5 2 Laboratory Tests 09/07/17 04:52: White Blood Count 11.1H, Red Blood Count 4.05L, Hemoglobin 10.6L, Hematocrit 34.0L, Mean Corpuscular Volume 84, Mean Corpuscular Hemoglobin 26.2L, Mean Corpuscular Hemoglobin Concent 31.2L, Red Cell Distribution Width 15.4H, Platelet Count 241, Mean Platelet Volume 7.4, Neutrophils (%) (Auto) 47.5, Lymphocytes (%) (Auto) 24.0, Monocytes (%) (Auto) 8.9, Eosinophils (%) (Auto) 18.6H, Basophils (%) (Auto) 1.0, Sodium Level 139, Potassium Level 3.7, Chloride Level 107, Carbon Dioxide Level 26, Anion Gap 6, Blood Urea Nitrogen 15 , Creatinine 0.8, Estimat Glomerular Filtration Rate > 60, Glucose Level 102, Calcium Level 8.6 Height (Feet): 5 Height (Inches): 8.00 Weight (Pounds): 150 General Appearance: no apparent distress, lethargic EENT: PERRL/EOMI Neck: normal alignment Cardiovascular: normal peripheral pulses Respiratory/Chest: no respiratory distress Abdomen: soft Justin Anthony MD Sep 07, 2017 12:29
--- NOTE | 2017-09-07 13:25 | Infectious Diseases Prog Note ---
Assessment/Plan Assessment/Plan ASSESSMENT: The patient is a 72-year-old male with multiple medical problems who was admitted to this medical center with: 1. Sepsis; improving 2. Leukocytosis; improving 3. Status post transient hypertension. 4. Possible ventilator-associated pneumonia . -u.a wbc 2/4, nit neg, leuk +2; ucx Neg -Bcx 2/4 CoNS (contaminant); repeat Bcx NTD -sp cx GNR #1,2; repeat pending -CXR: The right hemidiaphragm is elevated, as previously. Atelectatic changes are seen at the right lung base. Atelectasis is also seen in the left perihilar region. The lungs and pleural spaces are otherwise clear -cdiff neg -. History of aspiration pneumonia. -. Possible urinary tract infection/history of ESBL E. coli. -. History of respiratory failure, on the vent. -. Status post PEG, dysphagia. -. History of Aerococcus bacteremia. -. History of ESBL E. coli and healthcare-associated pneumonia. -. Osteoarthritis. -. Hypertension. -. Chronic obstructive pulmonary disease. -. GERD. -. Helicobacter pylori in the past. -. Dementia/psychosis. PLAN: 1. D/c IV vancomycin #4 Continue meropenem #4 and add Levaquin pending GNR ID and sensi of GNR in sputum for possible PNA -monitor QTc -09/04 SP Cefepime and Flagyl x1 03/22 SP Ancef x1 (periop) 03/21 SP Meropenem #14 03/20 SP IV Vanco #10 03/15/17 SP Dapto x1 03/08 SP vancomycin d# 5 03/07/17 SP Zosyn d# 4 2. Monitor CBC. 3. Monitor BMP. 4. Monitor cultures (blood, sputum). 5. Monitor chest x-ray. 6. Monitor the patient's clinical course and laboratories and based on those we will do further recommendation. Thank you, Dr. Anthony, for allowing me to participate in the care of this patient. I will follow the patient with you during this hospitalization. Subjective Allergies: Coded Allergies: No Known Allergies (Unverified , 10/20/16) Subjective afebrile at 4l NC Objective Vital Signs Last 24 Hour Vital Signs Date Time Temp Pulse Resp B/P (MAP) Pulse Ox O2 Delivery O2 Flow Rate FiO2 09/07/17 13:08 60 10 35 09/07/17 12:00 35 09/07/17 12:00 99.2 63 14 113/48 100 Mechanical Ventilator 35 99.2 09/07/17 11:19 18 14 35 09/07/17 09:27 68 114/67 09/07/17 09:27 62 15 35 09/07/17 08:00 35 09/07/17 08:00 98.7 68 20 114/67 100 Mechanical Ventilator 35 98.7 09/07/17 08:00 63 09/07/17 07:17 66 22 35 09/07/17 05:07 62 13 35 09/07/17 04:00 60 09/07/17 04:00 35 09/07/17 04:00 99.0 64 20 122/62 99 Mechanical Ventilator 35 99.0 09/07/17 02:56 83 16 35 09/07/17 00:51 68 16 35 09/07/17 00:00 98.8 75 20 130/68 99 Mechanical Ventilator 35 98.8 09/07/17 00:00 71 09/06/17 22:55 65 16 35 09/06/17 20:57 68 19 35 09/06/17 20:33 70 123/61 09/06/17 20:00 98.9 62 20 123/61 99 Mechanical Ventilator 35 98.9 09/06/17 20:00 35 09/06/17 20:00 60 09/06/17 18:45 71 14 35 09/06/17 16:58 70 16 35 09/06/17 16:00 68 09/06/17 16:00 98.8 68 20 105/58 99 Mechanical Ventilator 35 98.8 09/06/17 16:00 35 09/06/17 15:56 88 24 35 Height (Feet): 5 Height (Inches): 8.00 Weight (Pounds): 150 Objective HEENT: Mild pale conjunctivae. No icterus. NECK: Trach in place. CHEST: Coarse breathing sounds. HEART: S1 and S2. ABDOMEN: Soft. PEG tube in place. EXTREMITIES: No cyanosis. NEUROLOGIC: Awake and alert. Microbiology Date/Time Source Procedure Growth Status 09/05/17 15:42 Blood Blood Culture - Preliminary NO GROWTH AFTER 24 HOURS Resulted 09/05/17 15:38 Blood Blood Culture - Preliminary NO GROWTH AFTER 24 HOURS Resulted 09/06/17 18:35 Sputum Induced Gram Stain - Final Resulted 09/06/17 18:35 Sputum Induced Sputum Culture Pending Resulted 09/04/17 17:30 Sputum Gram Stain - Final Resulted 09/04/17 17:30 Sputum Culture - Preliminary Gram Negative Bacillus 1 Gram Negative Bacillus 2 Resulted 09/05/17 04:00 Stool Clostridium difficile Toxin Assay - Final Complete 09/04/17 17:30 Urine,Clean Catch Urine Culture - Final NO GROWTH AFTER 48 HOURS Complete Laboratory Tests Test 09/07/17 04:52 White Blood Count 11.1 K/UL (4.8-10.8) H Red Blood Count 4.05 M/UL (4.70-6.10) L Hemoglobin 10.6 G/DL (14.2-18.0) L Hematocrit 34.0 % (42.0-52.0) L Mean Corpuscular Volume 84 FL (80-99) Mean Corpuscular Hemoglobin 26.2 PG (27.0-31.0) L Mean Corpuscular Hemoglobin Concent 31.2 G/DL (32.0-36.0) L Red Cell Distribution Width 15.4 % (11.6-14.8) H Platelet Count 241 K/UL (150-450) Mean Platelet Volume 7.4 FL (6.5-10.1) Neutrophils (%) (Auto) 47.5 % (45.0-75.0) Lymphocytes (%) (Auto) 24.0 % (20.0-45.0) Monocytes (%) (Auto) 8.9 % (1.0-10.0) Eosinophils (%) (Auto) 18.6 % (0.0-3.0) H Basophils (%) (Auto) 1.0 % (0.0-2.0) Sodium Level 139 MMOL/L (136-145) Potassium Level 3.7 MMOL/L (3.5-5.1) Chloride Level 107 MMOL/L (98-107) Carbon Dioxide Level 26 MMOL/L (21-32) Anion Gap 6 mmol/L (5-15) Blood Urea Nitrogen 15 mg/dL (7-18) Creatinine 0.8 MG/DL (0.55-1.30) Estimat Glomerular Filtration Rate > 60 mL/min (>60) Glucose Level 102 MG/DL (74-106) Calcium Level 8.6 MG/DL (8.5-10.1) Current Medications Medications (Trade) Dose Ordered Sig/Ant Route PRN Reason Start Time Stop Time Status Last Admin Dose Admin Acetaminophen (Tylenol) 650 mg Q4H PRN ORAL FEVER 09/04/17 12:30 10/04/17 12:29 Albuterol/ Ipratropium (Albuterol/ Ipratropium) 3 ml Q4H PRN HHN Shortness of Breath 09/04/17 12:30 09/09/17 12:29 Carvedilol (Coreg) 3.125 mg EVERY 12 HOURS GT 09/04/17 21:00 10/04/17 20:59 09/07/17 09:27 Dextrose (Dextrose 50%) STAT PRN IV Hypoglycemia 09/04/17 12:30 10/04/17 12:29 Heparin Sodium (Porcine) (Heparin 5000 units/ml) 5,000 units EVERY 12 HOURS SUBQ 09/04/17 21:00 10/04/17 20:59 09/07/17 09:30 Lorazepam (Ativan 2mg/ml 1ml) 2 mg Q2H PRN IV For Anxiety 09/04/17 12:30 09/11/17 12:29 Meropenem 1 gm/ Sodium Chloride 55 ml @ 110 mls/hr Q8H IVPB 09/04/17 18:00 09/09/17 17:59 09/07/17 09:27 Morphine Sulfate (Morphine Sulfate) 4 mg Q4H PRN IVP Severe Pain (Pain Scale 7-10) 09/04/17 12:30 09/11/17 12:29 09/05/17 03:00 Ondansetron HCl (Zofran) 4 mg Q6H PRN IVP Nausea & Vomiting 09/04/17 12:30 10/04/17 12:29 09/05/17 23:51 Pantoprazole (Protonix) 40 mg DAILY IV 09/05/17 09:00 10/05/17 08:59 09/07/17 09:27 Polyethylene Glycol (Miralax) 17 gm DAILYPRN PRN ORAL Constipation 09/04/17 12:30 10/04/17 12:29 Vancomycin HCl (Vanco rx to dose) 1 ea DAILY PRN MISC PER RX PROTOCOL 09/07/17 08:00 10/07/17 07:59 Vancomycin/Sodium Chloride 250 ml @ 166.636 mls/hr Q12H IVPB 09/05/17 00:00 09/10/17 00:00 09/07/17 11:51 Alise Polanco M.D. Sep 07, 2017 13:25
[2017-09-07] MEDS ORDERED: Levofloxacin 500mg tab ORAL ONE (13:30)
[2017-09-07] MEDS ORDERED: Levofloxacin 500mg tab ORAL SCH (14:00)
--- NOTE | 2017-09-07 14:06 | General Progress Note ---
Assessment/Plan Problem List: (1) Sepsis ICD Codes: A41.9 - Sepsis, unspecified organism SNOMED: 37439216 (2) Acute on chronic respiratory failure ICD Codes: J96.20 - Acute and chronic respiratory failure, unspecified whether with hypoxia or hypercapnia SNOMED: 48546403 (3) Anemia ICD Codes: D64.9 - Anemia, unspecified SNOMED: 244212924 Status: stable, progressing Assessment/Plan vent abx cbc bmp am Subjective Constitutional: Reports: weakness Allergies: Coded Allergies: No Known Allergies (Unverified , 10/20/16) All Systems: reviewed and negative except above Subjective trach vent altered Objective Last 24 Hour Vital Signs Date Time Temp Pulse Resp B/P (MAP) Pulse Ox O2 Delivery O2 Flow Rate FiO2 09/07/17 13:08 60 10 35 09/07/17 12:00 35 09/07/17 12:00 99.2 63 14 113/48 100 Mechanical Ventilator 35 99.2 09/07/17 12:00 65 09/07/17 11:19 18 14 35 09/07/17 09:27 68 114/67 09/07/17 09:27 62 15 35 09/07/17 08:00 35 09/07/17 08:00 98.7 68 20 114/67 100 Mechanical Ventilator 35 98.7 09/07/17 08:00 63 09/07/17 07:17 66 22 35 09/07/17 05:07 62 13 35 09/07/17 04:00 60 09/07/17 04:00 35 09/07/17 04:00 99.0 64 20 122/62 99 Mechanical Ventilator 35 99.0 09/07/17 02:56 83 16 35 09/07/17 00:51 68 16 35 09/07/17 00:00 98.8 75 20 130/68 99 Mechanical Ventilator 35 98.8 09/07/17 00:00 71 09/06/17 22:55 65 16 35 09/06/17 20:57 68 19 35 09/06/17 20:33 70 123/61 09/06/17 20:00 98.9 62 20 123/61 99 Mechanical Ventilator 35 98.9 09/06/17 20:00 35 09/06/17 20:00 60 09/06/17 18:45 71 14 35 09/06/17 16:58 70 16 35 09/06/17 16:00 68 09/06/17 16:00 98.8 68 20 105/58 99 Mechanical Ventilator 35 98.8 09/06/17 16:00 35 09/06/17 15:56 88 24 35 Intake and Output 09/06/17 09/07/17 19:00 07:00 Intake Total 770.000 ml 665.0 ml Output Total 500 ml 400 ml Balance 270.000 ml 265.0 ml Intake Free Water 50 ml IV Total 360.000 ml 305.0 ml Tube Feeding 360 ml 360 ml Output Urine Total 500 ml 400 ml # Bowel Movements 5 2 Laboratory Tests 09/07/17 04:52: White Blood Count 11.1H, Red Blood Count 4.05L, Hemoglobin 10.6L, Hematocrit 34.0L, Mean Corpuscular Volume 84, Mean Corpuscular Hemoglobin 26.2L, Mean Corpuscular Hemoglobin Concent 31.2L, Red Cell Distribution Width 15.4H, Platelet Count 241, Mean Platelet Volume 7.4, Neutrophils (%) (Auto) 47.5, Lymphocytes (%) (Auto) 24.0, Monocytes (%) (Auto) 8.9, Eosinophils (%) (Auto) 18.6H, Basophils (%) (Auto) 1.0, Sodium Level 139, Potassium Level 3.7, Chloride Level 107, Carbon Dioxide Level 26, Anion Gap 6, Blood Urea Nitrogen 15 , Creatinine 0.8, Estimat Glomerular Filtration Rate > 60, Glucose Level 102, Calcium Level 8.6 Height (Feet): 5 Height (Inches): 8.00 Weight (Pounds): 150 General Appearance: lethargic EENT: normal ENT inspection Neck: normal alignment Cardiovascular: normal peripheral pulses, normal rate, regular rhythm Respiratory/Chest: chest wall non-tender, lungs clear, normal breath sounds Abdomen: normal bowel sounds, non tender, soft Extremities: normal inspection Edema: no edema noted Arm (L), no edema noted Arm (R), no edema noted Leg (L), no edema noted Leg (R), no edema noted Pedal (L), no edema noted Pedal (R), no edema noted Generalized Neurologic: motor weakness Skin: normal pigmentation, warm/dry Alex Grey DO Sep 07, 2017 14:05
[2017-09-07 16:00] VITALS: BP 101/59
[2017-09-07 20:00] VITALS: BP 145/62
[2017-09-07] MEDS ORDERED: Sterile Water Irrig 1000ml IRRIG ONE (21:02)
[2017-09-07] MEDS ORDERED: NS 275ml ONE (21:02)
[2017-09-08] VITALS: BP 115/70
[2017-09-08] MEDS: Meropenem 1 GM in NS 55 ML IVPB SCH ×3 (01:54→17:43)
[2017-09-08 04:00] VITALS: BP 123/65
[2017-09-08 05:49] LABS: HEMATOCRIT 35.2 % (42.0-52.0); HEMOGLOBIN 11.5 G/DL (14.2-18.0); MEAN CORPUSCULAR VOLUME 84 FL (80-99); PLATELET COUNT 235 K/UL (150-450); RED BLOOD COUNT 4.18 M/UL (4.70-6.10); RED CELL DISTRIBUTION WIDTH 15.4 % (11.6-14.8); WHITE BLOOD COUNT 9.4 K/UL (4.8-10.8)
[2017-09-08 06:20] LABS: ALANINE AMINOTRANSFERASE 35 U/L (12-78); ALBUMIN 2.5 G/DL (3.4-5.0); ALBUMIN/GLOBULIN RATIO 0.5 (1.0-2.7); ALKALINE PHOSPHATASE 112 U/L (46-116); ANION GAP 6 mmol/L (5-15); ASPARTATE AMINO TRANSFERASE 39 U/L (15-37); BILIRUBIN,TOTAL 0.4 MG/DL (0.2-1.0); BLOOD UREA NITROGEN 12 mg/dL (7-18); CALCIUM 9.2 MG/DL (8.5-10.1); CARBON DIOXIDE 29 MMOL/L (21-32); CHLORIDE 106 MMOL/L (98-107); CREATININE 0.9 MG/DL (0.55-1.30); PHOSPHORUS 2.4 MG/DL (2.5-4.9); POTASSIUM 3.5 MMOL/L (3.5-5.1); SODIUM 141 MMOL/L (136-145)
[2017-09-08 08:00] VITALS: BP 128/69
[2017-09-08] MEDS: Pantoprazole Inj IV SCH (08:48)
[2017-09-08] MEDS: Levofloxacin 500mg tab ORAL SCH (08:49)
[2017-09-08] MEDS: Heparin 5000 units/ml inj SUBQ SCH ×2 (08:50→20:55)
--- NOTE | 2017-09-08 10:37 | General Progress Note ---
Assessment/Plan Status: stable Assessment/Plan # Leukocytosis secondary to underlying infection. --> wbc improving --> continue abx, monitor for improvement. # Sepsis --> Pt on IV VANCOMYCIN Q12 --> monitor for improvement. --> improving # Anemia due to underlying chronic disease. --> anemia w/u has been reviewed, will trend daily --> hgb goal >7 # Coagulopathy likely secondary to decreased p.o. intake. # History of pneumonia. --> Imaging reviewed. Decreased lung volume. Subjective Date patient seen: Sep 08, 2017 ROS Limited/Unobtainable: Yes Allergies: Coded Allergies: No Known Allergies (Unverified , 10/20/16) All Systems: reviewed and negative except above Subjective No overnight events. NAD. No fever, chills, sob. Vitals are stable. Objective Last 24 Hour Vital Signs Date Time Temp Pulse Resp B/P (MAP) Pulse Ox O2 Delivery O2 Flow Rate FiO2 09/08/17 08:49 64 128/69 09/08/17 08:42 68 22 35 09/08/17 08:00 35 09/08/17 08:00 97.9 64 18 128/69 96 Mechanical Ventilator 35 97.9 09/08/17 08:00 64 09/08/17 07:20 66 25 35 09/08/17 05:07 65 20 35 09/08/17 04:00 97.5 58 23 123/65 100 Mechanical Ventilator 35 97.5 09/08/17 04:00 35 09/08/17 04:00 59 09/08/17 03:30 58 21 35 09/08/17 01:30 53 20 35 09/08/17 00:00 57 09/08/17 00:00 97.9 61 26 115/70 100 Mechanical Ventilator 35 97.9 09/07/17 23:26 67 22 35 09/07/17 20:56 65 17 35 09/07/17 20:14 69 145/62 09/07/17 20:00 66 09/07/17 20:00 35 09/07/17 20:00 98.6 68 18 145/62 100 Mechanical Ventilator 35 98.6 09/07/17 19:20 61 23 35 09/07/17 17:15 61 12 35 09/07/17 16:00 61 09/07/17 16:00 98.2 60 12 101/59 100 Mechanical Ventilator 35 98.2 09/07/17 16:00 35 09/07/17 15:03 80 28 35 09/07/17 13:08 60 10 35 09/07/17 12:00 35 09/07/17 12:00 99.2 63 14 113/48 100 Mechanical Ventilator 35 99.2 09/07/17 12:00 65 09/07/17 11:19 18 14 35 Intake and Output 09/07/17 09/08/17 19:00 07:00 Intake Total 750.272 ml 570 ml Output Total 300 ml 350 ml Balance 450.272 ml 220 ml Intake Free Water 100 ml IV Total 360.272 ml 110 ml Tube Feeding 360 ml 360 ml Other 30 ml Output Urine Total 300 ml 350 ml # Bowel Movements 1 Laboratory Tests 09/08/17 04:29: White Blood Count 9.4, Red Blood Count 4.18L, Hemoglobin 11.5L, Hematocrit 35.2L , Mean Corpuscular Volume 84, Mean Corpuscular Hemoglobin 27.5, Mean Corpuscular Hemoglobin Concent 32.7, Red Cell Distribution Width 15.4H, Platelet Count 235, Mean Platelet Volume 7.2, Neutrophils (%) (Auto) , Lymphocytes (%) (Auto) , Monocytes (%) (Auto) , Eosinophils (%) (Auto) , Basophils (%) (Auto) , Sodium Level 141, Potassium Level 3.5, Chloride Level 106 , Carbon Dioxide Level 29, Anion Gap 6, Blood Urea Nitrogen 12, Creatinine 0.9, Estimat Glomerular Filtration Rate > 60, Glucose Level 96, Calcium Level 9.2, Phosphorus Level 2.4L, Magnesium Level 2.0, Total Bilirubin 0.4, Aspartate Amino Transf (AST/SGOT) 39H, Alanine Aminotransferase (ALT/SGPT) 35, Alkaline Phosphatase 112, Total Protein 7.2, Albumin 2.5L, Globulin 4.7, Albumin/ Globulin Ratio 0.5L Height (Feet): 5 Height (Inches): 8.00 Weight (Pounds): 146 General Appearance: no apparent distress, alert EENT: PERRL/EOMI Neck: normal alignment Cardiovascular: normal peripheral pulses Respiratory/Chest: no respiratory distress Abdomen: soft Justin Anthony MD Sep 08, 2017 10:37
--- NOTE | 2017-09-08 11:02 | Pulmonolgy Critical Care Note ---
Critical Care - Asmt/Plan Problems: (1) Acute on chronic respiratory failure (2) Sepsis (3) Healthcare associated bacterial pneumonia (4) COPD (chronic obstructive pulmonary disease) (5) intermediate resident (6) Alzheimer disease (7) Feeding by G-tube Respiratory: monitor respiratory rate, adjust FIO2, CXR Cardiac: continue to monitor HR/BP Renal: F/U I&O Infectious Disease: check cultures, continue antibiotics Gastrointestinal: continue feedings/current rate Endocrine: monitor blood sugar Hematologic: transfuse if hgb<8.5 Neurologic: PRN Ativan, keep patient comfortable Affect: PRN ativan Disposition: keep in ICU Notes Reviewed: electrical repairer Discussed with: nurses, consultants, case fillerrehabilitation services manager - Objective Last 24 Hour Vital Signs Date Time Temp Pulse Resp B/P (MAP) Pulse Ox O2 Delivery O2 Flow Rate FiO2 09/08/17 08:49 64 128/69 09/08/17 08:42 68 22 35 09/08/17 08:00 35 09/08/17 08:00 97.9 64 18 128/69 96 Mechanical Ventilator 35 97.9 09/08/17 08:00 64 09/08/17 07:20 66 25 35 09/08/17 05:07 65 20 35 09/08/17 04:00 97.5 58 23 123/65 100 Mechanical Ventilator 35 97.5 09/08/17 04:00 35 09/08/17 04:00 59 09/08/17 03:30 58 21 35 09/08/17 01:30 53 20 35 09/08/17 00:00 57 09/08/17 00:00 97.9 61 26 115/70 100 Mechanical Ventilator 35 97.9 09/07/17 23:26 67 22 35 09/07/17 20:56 65 17 35 09/07/17 20:14 69 145/62 09/07/17 20:00 66 09/07/17 20:00 35 09/07/17 20:00 98.6 68 18 145/62 100 Mechanical Ventilator 35 98.6 09/07/17 19:20 61 23 35 09/07/17 17:15 61 12 35 09/07/17 16:00 61 09/07/17 16:00 98.2 60 12 101/59 100 Mechanical Ventilator 35 98.2 09/07/17 16:00 35 09/07/17 15:03 80 28 35 09/07/17 13:08 60 10 35 09/07/17 12:00 35 09/07/17 12:00 99.2 63 14 113/48 100 Mechanical Ventilator 35 99.2 09/07/17 12:00 65 09/07/17 11:19 18 14 35 Status: awake Condition: critical HEENT: atraumatic Neck: full ROM Heart: HR/BP stable Abdomen: soft, non-tender Extremities: no C/C/E Micro: Microbiology Date/Time Source Procedure Growth Status 09/06/17 17:38 Blood Blood Culture - Preliminary Gram Positive Cocci Resulted 09/06/17 17:30 Blood Blood Culture - Preliminary Gram Positive Cocci Resulted 09/05/17 15:42 Blood Blood Culture - Preliminary NO GROWTH AFTER 48 HOURS Resulted 09/05/17 15:38 Blood Blood Culture - Preliminary NO GROWTH AFTER 48 HOURS Resulted 09/06/17 18:35 Sputum Induced Gram Stain - Final Resulted 09/06/17 18:35 Sputum Culture - Preliminary Gram Negative Bacillus 1 Resulted Critical Care - Subjective ROS Limited/Unobtainable: Yes Condition: critical EKG Rhythm: Sinus Rhythm FI02: 35 Vent Support Breath Rate: 8 Vent Support Mode: IMV/SIMV Vent Tidal Volume: 600 Sputum Amount: Moderate PEEP: 5.0 PIP: 12 Tube Feeding Amount: 30 I&O: Intake and Output 09/07/17 09/08/17 19:00 07:00 Intake Total 750.272 ml 570 ml Output Total 300 ml 350 ml Balance 450.272 ml 220 ml Intake Free Water 100 ml IV Total 360.272 ml 110 ml Tube Feeding 360 ml 360 ml Other 30 ml Output Urine Total 300 ml 350 ml # Bowel Movements 1 CXR: RLL infiltrate Labs: Laboratory Tests Test 09/08/17 04:29 White Blood Count 9.4 K/UL (4.8-10.8) Red Blood Count 4.18 M/UL (4.70-6.10) L Hemoglobin 11.5 G/DL (14.2-18.0) L Hematocrit 35.2 % (42.0-52.0) L Mean Corpuscular Volume 84 FL (80-99) Mean Corpuscular Hemoglobin 27.5 PG (27.0-31.0) Mean Corpuscular Hemoglobin Concent 32.7 G/DL (32.0-36.0) Red Cell Distribution Width 15.4 % (11.6-14.8) H Platelet Count 235 K/UL (150-450) Mean Platelet Volume 7.2 FL (6.5-10.1) Neutrophils (%) (Auto) % (45.0-75.0) Lymphocytes (%) (Auto) % (20.0-45.0) Monocytes (%) (Auto) % (1.0-10.0) Eosinophils (%) (Auto) % (0.0-3.0) Basophils (%) (Auto) % (0.0-2.0) Sodium Level 141 MMOL/L (136-145) Potassium Level 3.5 MMOL/L (3.5-5.1) Chloride Level 106 MMOL/L (98-107) Carbon Dioxide Level 29 MMOL/L (21-32) Anion Gap 6 mmol/L (5-15) Blood Urea Nitrogen 12 mg/dL (7-18) Creatinine 0.9 MG/DL (0.55-1.30) Estimat Glomerular Filtration Rate > 60 mL/min (>60) Glucose Level 96 MG/DL (74-106) Calcium Level 9.2 MG/DL (8.5-10.1) Phosphorus Level 2.4 MG/DL (2.5-4.9) L Magnesium Level 2.0 MG/DL (1.8-2.4) Total Bilirubin 0.4 MG/DL (0.2-1.0) Aspartate Amino Transf (AST/SGOT) 39 U/L (15-37) H Alanine Aminotransferase (ALT/SGPT) 35 U/L (12-78) Alkaline Phosphatase 112 U/L (46-116) Total Protein 7.2 G/DL (6.4-8.2) Albumin 2.5 G/DL (3.4-5.0) L Globulin 4.7 g/dL Albumin/Globulin Ratio 0.5 (1.0-2.7) L Rocio Uriarte MD Sep 08, 2017 11:02
[2017-09-08 12:00] VITALS: BP 130/71
--- NOTE | 2017-09-08 14:20 | General Progress Note ---
Assessment/Plan Problem List: (1) Sepsis ICD Codes: A41.9 - Sepsis, unspecified organism SNOMED: 00088782 (2) Acute on chronic respiratory failure ICD Codes: J96.20 - Acute and chronic respiratory failure, unspecified whether with hypoxia or hypercapnia SNOMED: 53658592 (3) Anemia ICD Codes: D64.9 - Anemia, unspecified SNOMED: 764752296 Status: stable, progressing Assessment/Plan vent abx cbc bmp am ltach eval Subjective Constitutional: Reports: weakness Allergies: Coded Allergies: No Known Allergies (Unverified , 10/20/16) All Systems: reviewed and negative except above Subjective trach vent altered Objective Last 24 Hour Vital Signs Date Time Temp Pulse Resp B/P (MAP) Pulse Ox O2 Delivery O2 Flow Rate FiO2 09/08/17 13:29 80 20 35 09/08/17 12:05 73 09/08/17 12:00 98.6 69 19 130/71 98 Mechanical Ventilator 35 98.6 09/08/17 12:00 35 09/08/17 11:30 75 24 35 09/08/17 08:49 64 128/69 09/08/17 08:42 68 22 35 09/08/17 08:00 35 09/08/17 08:00 97.9 64 18 128/69 96 Mechanical Ventilator 35 97.9 09/08/17 08:00 64 09/08/17 07:20 66 25 35 09/08/17 05:07 65 20 35 09/08/17 04:00 97.5 58 23 123/65 100 Mechanical Ventilator 35 97.5 09/08/17 04:00 35 09/08/17 04:00 59 09/08/17 03:30 58 21 35 09/08/17 01:30 53 20 35 09/08/17 00:00 57 09/08/17 00:00 97.9 61 26 115/70 100 Mechanical Ventilator 35 97.9 09/07/17 23:26 67 22 35 09/07/17 20:56 65 17 35 09/07/17 20:14 69 145/62 09/07/17 20:00 66 09/07/17 20:00 35 09/07/17 20:00 98.6 68 18 145/62 100 Mechanical Ventilator 35 98.6 09/07/17 19:20 61 23 35 09/07/17 17:15 61 12 35 09/07/17 16:00 61 09/07/17 16:00 98.2 60 12 101/59 100 Mechanical Ventilator 35 98.2 09/07/17 16:00 35 09/07/17 15:03 80 28 35 Intake and Output 09/07/17 09/08/17 19:00 07:00 Intake Total 750.272 ml 570 ml Output Total 300 ml 350 ml Balance 450.272 ml 220 ml Intake Free Water 100 ml IV Total 360.272 ml 110 ml Tube Feeding 360 ml 360 ml Other 30 ml Output Urine Total 300 ml 350 ml # Bowel Movements 1 Laboratory Tests 09/08/17 04:29: White Blood Count 9.4, Red Blood Count 4.18L, Hemoglobin 11.5L, Hematocrit 35.2L , Mean Corpuscular Volume 84, Mean Corpuscular Hemoglobin 27.5, Mean Corpuscular Hemoglobin Concent 32.7, Red Cell Distribution Width 15.4H, Platelet Count 235, Mean Platelet Volume 7.2, Neutrophils (%) (Auto) , Lymphocytes (%) (Auto) , Monocytes (%) (Auto) , Eosinophils (%) (Auto) , Basophils (%) (Auto) , Sodium Level 141, Potassium Level 3.5, Chloride Level 106 , Carbon Dioxide Level 29, Anion Gap 6, Blood Urea Nitrogen 12, Creatinine 0.9, Estimat Glomerular Filtration Rate > 60, Glucose Level 96, Calcium Level 9.2, Phosphorus Level 2.4L, Magnesium Level 2.0, Total Bilirubin 0.4, Aspartate Amino Transf (AST/SGOT) 39H, Alanine Aminotransferase (ALT/SGPT) 35, Alkaline Phosphatase 112, Total Protein 7.2, Albumin 2.5L, Globulin 4.7, Albumin/ Globulin Ratio 0.5L Height (Feet): 5 Height (Inches): 8.00 Weight (Pounds): 146 General Appearance: lethargic EENT: normal ENT inspection Neck: normal alignment Cardiovascular: normal peripheral pulses, normal rate, regular rhythm Respiratory/Chest: chest wall non-tender, decreased breath sounds Abdomen: normal bowel sounds, non tender, soft Extremities: normal inspection Edema: no edema noted Arm (L), no edema noted Arm (R), no edema noted Leg (L), no edema noted Leg (R), no edema noted Pedal (L), no edema noted Pedal (R), no edema noted Generalized Neurologic: motor weakness Skin: normal pigmentation, warm/dry Alex Grey DO Sep 08, 2017 14:20
--- NOTE | 2017-09-08 15:29 | Cardiology Report ---
APPROVED REPORT EKG Measurement Heart [id number] Normal sinus rhythm Septal infarct, age undetermined Abnormal ECG
[2017-09-08 16:00] VITALS: BP 127/75
--- NOTE | 2017-09-08 17:29 | Infectious Diseases Prog Note ---
Assessment/Plan Assessment/Plan ASSESSMENT: The patient is a 72-year-old male with multiple medical problems who was admitted to this medical center with: 1. Sepsis; improving 2. Leukocytosis; resolved 3. Status post transient hypertension. 4. Possible ventilator-associated pneumonia . -u.a wbc 2/4, nit neg, leuk +2; ucx Neg -Bcx 2/ CoNS (contaminant); repeat Bcx NTD; 09/06 2/ GPC clusters (r/o S. aures vs CONS) -sp cx Serratia marcenses (R ancef, otherwise S); MDR PsA (R Cipro, Cefepime ; I Genta, Ceftazidime; S Imipenem; repeat GNR -CXR: The right hemidiaphragm is elevated, as previously. Atelectatic changes are seen at the right lung base. Atelectasis is also seen in the left perihilar region. The lungs and pleural spaces are otherwise clear -cdiff neg -. History of aspiration pneumonia. -. Possible urinary tract infection/history of ESBL E. coli. -. History of respiratory failure, on the vent. -. Status post PEG, dysphagia. -. History of Aerococcus bacteremia. -. History of ESBL E. coli and healthcare-associated pneumonia. -. Osteoarthritis. -. Hypertension. -. Chronic obstructive pulmonary disease. -. GERD. -. Helicobacter pylori in the past. -. Dementia/psychosis. PLAN: 1. Continue meropenem #5 and Levaquin #2 pending GNR ID and sensi of GNR in repeat sputum for possible PNA Resume IV Vancomycin pending ID GPC clusters -monitor QTc -09/07 SP IV vancomycin #4 -09/04 SP Cefepime and Flagyl x1 03/22 SP Ancef x1 (periop) 03/21 SP Meropenem #14 03/20 SP IV Vanco #10 03/15/17 SP Dapto x1 03/08 SP vancomycin d# 5 03/07/17 SP Zosyn d# 4 2. Monitor CBC. 3. Monitor BMP. 4. Monitor cultures (blood, sputum).; repeat Bcx x2 2d Echo 5. Monitor chest x-ray. 6. Monitor the patient's clinical course and laboratories and based on those we will do further recommendation. Thank you, Dr. Anthony, for allowing me to participate in the care of this patient. I will follow the patient with you during this hospitalization. Subjective Allergies: Coded Allergies: No Known Allergies (Unverified , 10/20/16) Subjective afebrile Fio2 35% bacteremic GPC clusters leukocytosis resolved Objective Vital Signs Last 24 Hour Vital Signs Date Time Temp Pulse Resp B/P (MAP) Pulse Ox O2 Delivery O2 Flow Rate FiO2 09/08/17 16:59 88 22 35 09/08/17 16:00 87 09/08/17 16:00 35 09/08/17 16:00 97.9 65 20 127/75 99 Mechanical Ventilator 35 97.9 09/08/17 15:30 92 21 35 09/08/17 13:29 80 20 35 09/08/17 12:05 73 09/08/17 12:00 98.6 69 19 130/71 98 Mechanical Ventilator 35 98.6 09/08/17 12:00 35 09/08/17 11:30 75 24 35 09/08/17 08:49 64 128/69 09/08/17 08:42 68 22 35 09/08/17 08:00 35 09/08/17 08:00 97.9 64 18 128/69 96 Mechanical Ventilator 35 97.9 09/08/17 08:00 64 09/08/17 07:20 66 25 35 09/08/17 05:07 65 20 35 09/08/17 04:00 97.5 58 23 123/65 100 Mechanical Ventilator 35 97.5 09/08/17 04:00 35 09/08/17 04:00 59 09/08/17 03:30 58 21 35 09/08/17 01:30 53 20 35 09/08/17 00:00 57 09/08/17 00:00 97.9 61 26 115/70 100 Mechanical Ventilator 35 97.9 09/07/17 23:26 67 22 35 09/07/17 20:56 65 17 35 09/07/17 20:14 69 145/62 09/07/17 20:00 66 09/07/17 20:00 35 09/07/17 20:00 98.6 68 18 145/62 100 Mechanical Ventilator 35 98.6 09/07/17 19:20 61 23 35 Height (Feet): 5 Height (Inches): 8.00 Weight (Pounds): 146 Objective HEENT: Mild pale conjunctivae. No icterus. NECK: Trach in place. CHEST: Coarse breathing sounds. HEART: S1 and S2. ABDOMEN: Soft. PEG tube in place. EXTREMITIES: No cyanosis. NEUROLOGIC: Awake and alert. Microbiology Date/Time Source Procedure Growth Status 09/06/17 17:38 Blood Blood Culture - Preliminary Gram Positive Cocci Resulted 09/06/17 17:30 Blood Blood Culture - Preliminary Gram Positive Cocci Resulted 09/06/17 18:35 Sputum Induced Gram Stain - Final Resulted 09/06/17 18:35 Sputum Culture - Preliminary Gram Negative Bacillus 1 Resulted Laboratory Tests Test 09/08/17 04:29 White Blood Count 9.4 K/UL (4.8-10.8) Red Blood Count 4.18 M/UL (4.70-6.10) L Hemoglobin 11.5 G/DL (14.2-18.0) L Hematocrit 35.2 % (42.0-52.0) L Mean Corpuscular Volume 84 FL (80-99) Mean Corpuscular Hemoglobin 27.5 PG (27.0-31.0) Mean Corpuscular Hemoglobin Concent 32.7 G/DL (32.0-36.0) Red Cell Distribution Width 15.4 % (11.6-14.8) H Platelet Count 235 K/UL (150-450) Mean Platelet Volume 7.2 FL (6.5-10.1) Neutrophils (%) (Auto) % (45.0-75.0) Lymphocytes (%) (Auto) % (20.0-45.0) Monocytes (%) (Auto) % (1.0-10.0) Eosinophils (%) (Auto) % (0.0-3.0) Basophils (%) (Auto) % (0.0-2.0) Sodium Level 141 MMOL/L (136-145) Potassium Level 3.5 MMOL/L (3.5-5.1) Chloride Level 106 MMOL/L (98-107) Carbon Dioxide Level 29 MMOL/L (21-32) Anion Gap 6 mmol/L (5-15) Blood Urea Nitrogen 12 mg/dL (7-18) Creatinine 0.9 MG/DL (0.55-1.30) Estimat Glomerular Filtration Rate > 60 mL/min (>60) Glucose Level 96 MG/DL (74-106) Calcium Level 9.2 MG/DL (8.5-10.1) Phosphorus Level 2.4 MG/DL (2.5-4.9) L Magnesium Level 2.0 MG/DL (1.8-2.4) Total Bilirubin 0.4 MG/DL (0.2-1.0) Aspartate Amino Transf (AST/SGOT) 39 U/L (15-37) H Alanine Aminotransferase (ALT/SGPT) 35 U/L (12-78) Alkaline Phosphatase 112 U/L (46-116) Total Protein 7.2 G/DL (6.4-8.2) Albumin 2.5 G/DL (3.4-5.0) L Globulin 4.7 g/dL Albumin/Globulin Ratio 0.5 (1.0-2.7) L Current Medications Medications (Trade) Dose Ordered Sig/Ant Route PRN Reason Start Time Stop Time Status Last Admin Dose Admin Acetaminophen (Tylenol) 650 mg Q4H PRN ORAL FEVER 09/04/17 12:30 10/04/17 12:29 Albuterol/ Ipratropium (Albuterol/ Ipratropium) 3 ml Q4H PRN HHN Shortness of Breath 09/04/17 12:30 09/09/17 12:29 Carvedilol (Coreg) 3.125 mg EVERY 12 HOURS GT 09/04/17 21:00 10/04/17 20:59 09/08/17 08:49 Dextrose (Dextrose 50%) STAT PRN IV Hypoglycemia 09/04/17 12:30 10/04/17 12:29 Heparin Sodium (Porcine) (Heparin 5000 units/ml) 5,000 units EVERY 12 HOURS SUBQ 09/04/17 21:00 10/04/17 20:59 09/08/17 08:50 Levofloxacin (Levaquin) 750 mg DAILY ORAL 09/08/17 09:00 09/15/17 08:59 09/08/17 08:49 Lorazepam (Ativan 2mg/ml 1ml) 2 mg Q2H PRN IV For Anxiety 09/04/17 12:30 09/11/17 12:29 Meropenem 1 gm/ Sodium Chloride 55 ml @ 110 mls/hr Q8H IVPB 09/04/17 18:00 09/13/17 17:59 09/08/17 10:06 Morphine Sulfate (Morphine Sulfate) 4 mg Q4H PRN IVP Severe Pain (Pain Scale 7-10) 09/04/17 12:30 09/11/17 12:29 09/05/17 03:00 Ondansetron HCl (Zofran) 4 mg Q6H PRN IVP Nausea & Vomiting 09/04/17 12:30 10/04/17 12:29 09/05/17 23:51 Pantoprazole (Protonix) 40 mg DAILY IV 09/05/17 09:00 10/05/17 08:59 09/08/17 08:48 Polyethylene Glycol (Miralax) 17 gm DAILYPRN PRN ORAL Constipation 09/04/17 12:30 10/04/17 12:29 Alise Polanco M.D. Sep 08, 2017 17:28
[2017-09-08] MEDS: Vancomycin 750mg/NS 250ml IVPB SCH (18:25)
[2017-09-08 20:00] VITALS: BP 128/72
[2017-09-09] VITALS: BP 147/94
[2017-09-09] MEDS: Meropenem 1 GM in NS 55 ML IVPB SCH ×3 (02:25→18:43)
[2017-09-09 04:00] VITALS: BP 142/102
[2017-09-09] MEDS: Vancomycin 750mg/NS 250ml IVPB SCH ×2 (06:30→19:13)
[2017-09-09 06:33] LABS: BASOPHILS % (AUTO) 0.9 % (0.0-2.0); HEMATOCRIT 36.5 % (42.0-52.0); HEMOGLOBIN 11.8 G/DL (14.2-18.0); LYMPHOCYTES % (AUTO) 15.1 % (20.0-45.0); MEAN CORPUSCULAR VOLUME 84 FL (80-99); MONOCYTES % (AUTO) 11.9 % (1.0-10.0); NEUTROPHILS % (AUTO) 64.2 % (45.0-75.0); PLATELET COUNT 262 K/UL (150-450); RED BLOOD COUNT 4.37 M/UL (4.70-6.10); RED CELL DISTRIBUTION WIDTH 15.3 % (11.6-14.8); WHITE BLOOD COUNT 13.9 K/UL (4.8-10.8)
[2017-09-09 07:04] LABS: ALANINE AMINOTRANSFERASE 37 U/L (12-78); ALBUMIN 2.7 G/DL (3.4-5.0); ALBUMIN/GLOBULIN RATIO 0.6 (1.0-2.7); ALKALINE PHOSPHATASE 119 U/L (46-116); ANION GAP 9 mmol/L (5-15); ASPARTATE AMINO TRANSFERASE 34 U/L (15-37); BILIRUBIN,TOTAL 0.4 MG/DL (0.2-1.0); BLOOD UREA NITROGEN 15 mg/dL (7-18); CARBON DIOXIDE 26 MMOL/L (21-32); CHLORIDE 104 MMOL/L (98-107); CREATININE 0.9 MG/DL (0.55-1.30); POTASSIUM 3.5 MMOL/L (3.5-5.1); SODIUM 139 MMOL/L (136-145)
[2017-09-09 08:34] VITALS: BP 108/61
[2017-09-09] MEDS: Levofloxacin 500mg tab ORAL SCH (09:37)
[2017-09-09] MEDS: Pantoprazole Inj IV SCH (09:37)
[2017-09-09] MEDS: Heparin 5000 units/ml inj SUBQ SCH ×2 (09:41→20:45)
--- NOTE | 2017-09-09 10:30 | Pulmonolgy Critical Care Note ---
Critical Care - Asmt/Plan Problems: (1) Acute on chronic respiratory failure (2) Sepsis (3) Healthcare associated bacterial pneumonia (4) COPD (chronic obstructive pulmonary disease) (5) jail resident (6) Alzheimer disease (7) Feeding by G-tube Respiratory: monitor respiratory rate, adjust FIO2, CXR Cardiac: continue pressors, continue to monitor HR/BP Renal: F/U I&O Infectious Disease: check cultures Gastrointestinal: continue feedings/current rate Endocrine: monitor blood sugar Hematologic: monitor H/H Neurologic: PRN Ativan Affect: PRN ativan Prophylaxis: Protonix Notes Reviewed: cardio, renal Discussed with: nurses, consultants, assistant case managermanager club - Objective Last 24 Hour Vital Signs Date Time Temp Pulse Resp B/P (MAP) Pulse Ox O2 Delivery O2 Flow Rate FiO2 09/09/17 09:37 86 108/61 09/09/17 09:28 86 17 35 09/09/17 08:34 98.9 87 20 108/61 100 Mechanical Ventilator 35 98.9 09/09/17 08:16 79 21 35 09/09/17 08:00 35 09/09/17 08:00 73 09/09/17 04:46 74 16 35 09/09/17 04:00 78 09/09/17 04:00 35 09/09/17 04:00 98.3 87 20 142/102 100 Mechanical Ventilator 35 98.3 09/09/17 02:32 94 25 35 09/09/17 01:28 80 22 35 09/09/17 00:00 35 09/09/17 00:00 98.7 85 20 147/94 100 Mechanical Ventilator 35 98.7 09/09/17 00:00 79 09/08/17 23:04 84 21 35 09/08/17 21:24 83 22 35 09/08/17 20:51 89 128/72 09/08/17 20:00 89 09/08/17 20:00 97.7 86 20 128/72 100 Mechanical Ventilator 35 97.7 09/08/17 19:50 35 09/08/17 19:27 91 22 35 09/08/17 16:59 88 22 35 09/08/17 16:00 87 09/08/17 16:00 35 09/08/17 16:00 97.9 65 20 127/75 99 Mechanical Ventilator 35 97.9 09/08/17 15:30 92 21 35 09/08/17 13:29 80 20 35 09/08/17 12:05 73 09/08/17 12:00 98.6 69 19 130/71 98 Mechanical Ventilator 35 98.6 09/08/17 12:00 35 09/08/17 11:30 75 24 35 Status: awake HEENT: atraumatic Lungs: clear Heart: HR/BP stable Abdomen: soft, active bowel sounds Extremities: no C/C/E Micro: Microbiology Date/Time Source Procedure Growth Status 09/06/17 17:38 Blood Blood Culture - Final Staphylococcus Epidermidis Complete 09/06/17 17:30 Blood Blood Culture - Final Staphylococcus Epidermidis Complete 09/06/17 18:35 Sputum Induced Gram Stain - Final Resulted 09/06/17 18:35 Sputum Culture - Preliminary Pseudomonas Aeruginosa Resulted Critical Care - Subjective ROS Limited/Unobtainable: Yes Condition: critical EKG Rhythm: Sinus Rhythm FI02: 35 Vent Support Breath Rate: 16 Vent Support Mode: AC Vent Tidal Volume: 600 Sputum Amount: Small PEEP: 5.0 PIP: 26 Tube Feeding Amount: 30 I&O: Intake and Output 09/08/17 09/09/17 19:00 07:00 Intake Total 600 ml 865.000 ml Output Total 550 ml 450 ml Balance 50 ml 415.000 ml Intake Free Water 100 ml 150 ml IV Total 110 ml 305.000 ml Tube Feeding 360 ml 360 ml Other 30 ml 50 ml Output Urine Total 550 ml 450 ml # Bowel Movements 2 2 Labs: Laboratory Tests Test 09/09/17 04:54 White Blood Count 13.9 K/UL (4.8-10.8) H Red Blood Count 4.37 M/UL (4.70-6.10) L Hemoglobin 11.8 G/DL (14.2-18.0) L Hematocrit 36.5 % (42.0-52.0) L Mean Corpuscular Volume 84 FL (80-99) Mean Corpuscular Hemoglobin 27.1 PG (27.0-31.0) Mean Corpuscular Hemoglobin Concent 32.3 G/DL (32.0-36.0) Red Cell Distribution Width 15.3 % (11.6-14.8) H Platelet Count 262 K/UL (150-450) Mean Platelet Volume 6.7 FL (6.5-10.1) Neutrophils (%) (Auto) 64.2 % (45.0-75.0) Lymphocytes (%) (Auto) 15.1 % (20.0-45.0) L Monocytes (%) (Auto) 11.9 % (1.0-10.0) H Eosinophils (%) (Auto) 8.0 % (0.0-3.0) H Basophils (%) (Auto) 0.9 % (0.0-2.0) Sodium Level 139 MMOL/L (136-145) Potassium Level 3.5 MMOL/L (3.5-5.1) Chloride Level 104 MMOL/L (98-107) Carbon Dioxide Level 26 MMOL/L (21-32) Anion Gap 9 mmol/L (5-15) Blood Urea Nitrogen 15 mg/dL (7-18) Creatinine 0.9 MG/DL (0.55-1.30) Estimat Glomerular Filtration Rate > 60 mL/min (>60) Glucose Level 105 MG/DL (74-106) Calcium Level 9.0 MG/DL (8.5-10.1) Total Bilirubin 0.4 MG/DL (0.2-1.0) Aspartate Amino Transf (AST/SGOT) 34 U/L (15-37) Alanine Aminotransferase (ALT/SGPT) 37 U/L (12-78) Alkaline Phosphatase 119 U/L (46-116) H Pro-B-Type Natriuretic Peptide 779 pg/mL (0-125) H Total Protein 7.6 G/DL (6.4-8.2) Albumin 2.7 G/DL (3.4-5.0) L Globulin 4.9 g/dL Albumin/Globulin Ratio 0.6 (1.0-2.7) L Rocio Uriarte MD Sep 09, 2017 10:30
--- NOTE | 2017-09-09 11:30 | General Progress Note ---
Assessment/Plan Status: unchanged Assessment/Plan # Leukocytosis secondary to underlying infection. --> wbc trending upwards 09/09 --> continue abx, monitor for improvement. # Sepsis --> Pt on IV VANCOMYCIN Q12 --> monitor for improvement. --> improving # Anemia due to underlying chronic disease. --> anemia w/u has been reviewed, will trend daily --> hgb goal >7 # Coagulopathy likely secondary to decreased p.o. intake. # History of pneumonia. --> Imaging reviewed. Decreased lung volume. Subjective Date patient seen: Sep 09, 2017 Allergies: Coded Allergies: No Known Allergies (Unverified , 10/20/16) All Systems: reviewed and negative except above Subjective Unable to perform ekg this am due to pt contractions. WBC trending upwards. Vitals are stable. Objective Last 24 Hour Vital Signs Date Time Temp Pulse Resp B/P (MAP) Pulse Ox O2 Delivery O2 Flow Rate FiO2 09/09/17 10:52 74 16 35 09/09/17 09:37 86 108/61 09/09/17 09:28 86 17 35 09/09/17 08:34 98.9 87 20 108/61 100 Mechanical Ventilator 35 98.9 09/09/17 08:16 79 21 35 09/09/17 08:00 35 09/09/17 08:00 73 09/09/17 04:46 74 16 35 09/09/17 04:00 78 09/09/17 04:00 35 09/09/17 04:00 98.3 87 20 142/102 100 Mechanical Ventilator 35 98.3 09/09/17 02:32 94 25 35 09/09/17 01:28 80 22 35 09/09/17 00:00 35 09/09/17 00:00 98.7 85 20 147/94 100 Mechanical Ventilator 35 98.7 09/09/17 00:00 79 09/08/17 23:04 84 21 35 09/08/17 21:24 83 22 35 09/08/17 20:51 89 128/72 09/08/17 20:00 89 09/08/17 20:00 97.7 86 20 128/72 100 Mechanical Ventilator 35 97.7 09/08/17 19:50 35 09/08/17 19:27 91 22 35 09/08/17 16:59 88 22 35 09/08/17 16:00 87 09/08/17 16:00 35 09/08/17 16:00 97.9 65 20 127/75 99 Mechanical Ventilator 35 97.9 09/08/17 15:30 92 21 35 09/08/17 13:29 80 20 35 09/08/17 12:05 73 09/08/17 12:00 98.6 69 19 130/71 98 Mechanical Ventilator 35 98.6 09/08/17 12:00 35 09/08/17 11:30 75 24 35 Intake and Output 09/08/17 09/09/17 19:00 07:00 Intake Total 600 ml 865.000 ml Output Total 550 ml 450 ml Balance 50 ml 415.000 ml Intake Free Water 100 ml 150 ml IV Total 110 ml 305.000 ml Tube Feeding 360 ml 360 ml Other 30 ml 50 ml Output Urine Total 550 ml 450 ml # Bowel Movements 2 2 Laboratory Tests 09/09/17 04:54: White Blood Count 13.9H, Red Blood Count 4.37L, Hemoglobin 11.8L, Hematocrit 36.5L, Mean Corpuscular Volume 84, Mean Corpuscular Hemoglobin 27.1, Mean Corpuscular Hemoglobin Concent 32.3, Red Cell Distribution Width 15.3H, Platelet Count 262, Mean Platelet Volume 6.7, Neutrophils (%) (Auto) 64.2, Lymphocytes (%) (Auto) 15.1L, Monocytes (%) (Auto) 11.9H, Eosinophils (%) (Auto ) 8.0H, Basophils (%) (Auto) 0.9, Sodium Level 139, Potassium Level 3.5, Chloride Level 104, Carbon Dioxide Level 26, Anion Gap 9, Blood Urea Nitrogen 15 , Creatinine 0.9, Estimat Glomerular Filtration Rate > 60, Glucose Level 105, Calcium Level 9.0, Total Bilirubin 0.4, Aspartate Amino Transf (AST/SGOT) 34, Alanine Aminotransferase (ALT/SGPT) 37, Alkaline Phosphatase 119H, Pro-B-Type Natriuretic Peptide 779H, Total Protein 7.6, Albumin 2.7L, Globulin 4.9, Albumin /Globulin Ratio 0.6L Height (Feet): 5 Height (Inches): 8.00 Weight (Pounds): 146 General Appearance: no apparent distress EENT: PERRL/EOMI Neck: normal alignment Cardiovascular: normal peripheral pulses Respiratory/Chest: no respiratory distress Abdomen: soft Justin Anthony MD Sep 09, 2017 11:30
[2017-09-09 12:00] VITALS: BP 97/83
--- NOTE | 2017-09-09 12:36 | Diagnostic Imaging Report ---
Indication: Dyspnea Comparison: 09/06/2017 A single view chest radiograph was obtained. Findings: Lung volumes remain low. Mild left basal atelectasis noted. The right hemidiaphragm is elevated. There is interposition of the hepatic flexure seen just below the right hemidiaphragm. Tracheostomy again noted. Heart size is stable. IMPRESSION: No change. No infiltrates or other acute process
--- NOTE | 2017-09-09 13:15 | Infectious Diseases Prog Note ---
Assessment/Plan Assessment/Plan ASSESSMENT: The patient is a 72-year-old male with multiple medical problems who was admitted to this medical center with: 1. Sepsis; resolved 2. Leukocytosis; recurrent 3. Status post transient hypertension. 4. Possible ventilator-associated pneumonia . -u.a wbc 2/4, nit neg, leuk +2; ucx Neg -Bcx 04/18 CoNS (contaminant); repeat Bcx NTD; 09/06 2/ S.epi; Bcx 09/08 p- repeat CONS bacteremia- likely contaminants but given repeat and high grade r/ o endocarditis -sp cx Serratia marcenses (R ancef, otherwise S); MDR PsA (R Cipro, Cefepime ; I Genta, Ceftazidime; S Imipenem; repeat GNR; repeat Sp cx 09/06 PsA ( different strain)- R Imipenem I Levo, S Cefepime, Cipro -CXR: The right hemidiaphragm is elevated, as previously. Atelectatic changes are seen at the right lung base. Atelectasis is also seen in the left perihilar region. The lungs and pleural spaces are otherwise clear -cdiff neg -. History of aspiration pneumonia. -. Possible urinary tract infection/history of ESBL E. coli. -. History of respiratory failure, on the vent. -. Status post PEG, dysphagia. -. History of Aerococcus bacteremia. -. History of ESBL E. coli and healthcare-associated pneumonia. -. Osteoarthritis. -. Hypertension. -. Chronic obstructive pulmonary disease. -. GERD. -. Helicobacter pylori in the past. -. Dementia/psychosis. PLAN: 1. Continue meropenem #/ and switch Levaquin #3/7 to Cipro for possible Serratia and PsA PNA vs tracheitis Resume IV Vancomycin abx d#6 pending repeat Bcx x2 and 2d Echo -monitor QTc -09/07 SP IV vancomycin #4 -09/04 SP Cefepime and Flagyl x1 03/22 SP Ancef x1 (periop) 03/21 SP Meropenem #14 03/20 SP IV Vanco #10 03/15/17 SP Dapto x1 03/08 SP vancomycin d# 5 03/07/17 SP Zosyn d# 4 2. Monitor CBC. 3. Monitor BMP. 4. f/u repeat Bcx x2 and 2d Echo 5. Monitor chest x-ray. 6. Monitor the patient's clinical course and laboratories and based on those we will do further recommendation. Thank you, Dr. Anthony, for allowing me to participate in the care of this patient. I will follow the patient with you during this hospitalization. Subjective Allergies: Coded Allergies: No Known Allergies (Unverified , 10/20/16) Subjective afebrile Fio2 35% bacteremic S. epi; repeat bcx p leukocytosis recurrent Objective Vital Signs Last 24 Hour Vital Signs Date Time Temp Pulse Resp B/P (MAP) Pulse Ox O2 Delivery O2 Flow Rate FiO2 09/09/17 12:00 35 09/09/17 12:00 99.3 82 16 97/83 99 Mechanical Ventilator 35 99.3 09/09/17 12:00 66 09/09/17 10:52 74 16 35 09/09/17 09:37 86 108/61 09/09/17 09:28 86 17 35 09/09/17 08:34 98.9 87 20 108/61 100 Mechanical Ventilator 35 98.9 09/09/17 08:16 79 21 35 09/09/17 08:00 35 09/09/17 08:00 73 09/09/17 04:46 74 16 35 09/09/17 04:00 78 09/09/17 04:00 35 09/09/17 04:00 98.3 87 20 142/102 100 Mechanical Ventilator 35 98.3 09/09/17 02:32 94 25 35 09/09/17 01:28 80 22 35 09/09/17 00:00 35 09/09/17 00:00 98.7 85 20 147/94 100 Mechanical Ventilator 35 98.7 09/09/17 00:00 79 09/08/17 23:04 84 21 35 09/08/17 21:24 83 22 35 09/08/17 20:51 89 128/72 09/08/17 20:00 89 09/08/17 20:00 97.7 86 20 128/72 100 Mechanical Ventilator 35 97.7 09/08/17 19:50 35 09/08/17 19:27 91 22 35 09/08/17 16:59 88 22 35 09/08/17 16:00 87 09/08/17 16:00 35 09/08/17 16:00 97.9 65 20 127/75 99 Mechanical Ventilator 35 97.9 09/08/17 15:30 92 21 35 09/08/17 13:29 80 20 35 Height (Feet): 5 Height (Inches): 8.00 Weight (Pounds): 146 Objective HEENT: Mild pale conjunctivae. No icterus. NECK: Trach in place. CHEST: Coarse breathing sounds. HEART: S1 and S2. ABDOMEN: Soft. PEG tube in place. EXTREMITIES: No cyanosis. NEUROLOGIC: Awake and alert. Microbiology Date/Time Source Procedure Growth Status 09/06/17 17:38 Blood Blood Culture - Final Staphylococcus Epidermidis Complete 09/06/17 17:30 Blood Blood Culture - Final Staphylococcus Epidermidis Complete 09/06/17 18:35 Sputum Induced Gram Stain - Final Resulted 09/06/17 18:35 Sputum Culture - Preliminary Pseudomonas Aeruginosa Resulted Laboratory Tests Test 09/09/17 04:54 White Blood Count 13.9 K/UL (4.8-10.8) H Red Blood Count 4.37 M/UL (4.70-6.10) L Hemoglobin 11.8 G/DL (14.2-18.0) L Hematocrit 36.5 % (42.0-52.0) L Mean Corpuscular Volume 84 FL (80-99) Mean Corpuscular Hemoglobin 27.1 PG (27.0-31.0) Mean Corpuscular Hemoglobin Concent 32.3 G/DL (32.0-36.0) Red Cell Distribution Width 15.3 % (11.6-14.8) H Platelet Count 262 K/UL (150-450) Mean Platelet Volume 6.7 FL (6.5-10.1) Neutrophils (%) (Auto) 64.2 % (45.0-75.0) Lymphocytes (%) (Auto) 15.1 % (20.0-45.0) L Monocytes (%) (Auto) 11.9 % (1.0-10.0) H Eosinophils (%) (Auto) 8.0 % (0.0-3.0) H Basophils (%) (Auto) 0.9 % (0.0-2.0) Sodium Level 139 MMOL/L (136-145) Potassium Level 3.5 MMOL/L (3.5-5.1) Chloride Level 104 MMOL/L (98-107) Carbon Dioxide Level 26 MMOL/L (21-32) Anion Gap 9 mmol/L (5-15) Blood Urea Nitrogen 15 mg/dL (7-18) Creatinine 0.9 MG/DL (0.55-1.30) Estimat Glomerular Filtration Rate > 60 mL/min (>60) Glucose Level 105 MG/DL (74-106) Calcium Level 9.0 MG/DL (8.5-10.1) Total Bilirubin 0.4 MG/DL (0.2-1.0) Aspartate Amino Transf (AST/SGOT) 34 U/L (15-37) Alanine Aminotransferase (ALT/SGPT) 37 U/L (12-78) Alkaline Phosphatase 119 U/L (46-116) H Pro-B-Type Natriuretic Peptide 779 pg/mL (0-125) H Total Protein 7.6 G/DL (6.4-8.2) Albumin 2.7 G/DL (3.4-5.0) L Globulin 4.9 g/dL Albumin/Globulin Ratio 0.6 (1.0-2.7) L Current Medications Medications (Trade) Dose Ordered Sig/Ant Route PRN Reason Start Time Stop Time Status Last Admin Dose Admin Acetaminophen (Tylenol) 650 mg Q4H PRN ORAL FEVER 09/04/17 12:30 10/04/17 12:29 Carvedilol (Coreg) 3.125 mg EVERY 12 HOURS GT 09/04/17 21:00 10/04/17 20:59 09/09/17 09:37 Dextrose (Dextrose 50%) STAT PRN IV Hypoglycemia 09/04/17 12:30 10/04/17 12:29 Heparin Sodium (Porcine) (Heparin 5000 units/ml) 5,000 units EVERY 12 HOURS SUBQ 09/04/17 21:00 10/04/17 20:59 09/09/17 09:41 Levofloxacin (Levaquin) 750 mg DAILY ORAL 09/08/17 09:00 09/15/17 08:59 09/09/17 09:37 Lorazepam (Ativan 2mg/ml 1ml) 2 mg Q2H PRN IV For Anxiety 09/04/17 12:30 09/11/17 12:29 Meropenem 1 gm/ Sodium Chloride 55 ml @ 110 mls/hr Q8H IVPB 09/04/17 18:00 09/13/17 17:59 09/09/17 09:41 Morphine Sulfate (Morphine Sulfate) 4 mg Q4H PRN IVP Severe Pain (Pain Scale 7-10) 09/04/17 12:30 09/11/17 12:29 09/05/17 03:00 Ondansetron HCl (Zofran) 4 mg Q6H PRN IVP Nausea & Vomiting 09/04/17 12:30 10/04/17 12:29 09/05/17 23:51 Pantoprazole (Protonix) 40 mg DAILY IV 09/05/17 09:00 10/05/17 08:59 09/09/17 09:37 Polyethylene Glycol (Miralax) 17 gm DAILYPRN PRN ORAL Constipation 09/04/17 12:30 10/04/17 12:29 Vancomycin HCl (Vanco rx to dose) 1 ea DAILY PRN MISC Per rx protocol 09/08/17 17:30 10/08/17 17:29 Vancomycin/Sodium Chloride 250 ml @ 166.667 mls/hr Q12H IVPB 09/08/17 18:30 09/13/17 18:29 09/09/17 06:30 Alise Polanco M.D. Sep 09, 2017 13:15
--- NOTE | 2017-09-09 14:39 | General Progress Note ---
Assessment/Plan Problem List: (1) Sepsis ICD Codes: A41.9 - Sepsis, unspecified organism SNOMED: 75142185 (2) Acute on chronic respiratory failure ICD Codes: J96.20 - Acute and chronic respiratory failure, unspecified whether with hypoxia or hypercapnia SNOMED: 29195737 (3) Anemia ICD Codes: D64.9 - Anemia, unspecified SNOMED: 196220940 Status: stable, progressing Assessment/Plan vent abx cbc bmp am ltach eval Subjective Constitutional: Reports: weakness Allergies: Coded Allergies: No Known Allergies (Unverified , 10/20/16) All Systems: reviewed and negative except above Subjective trach vent altered Objective Last 24 Hour Vital Signs Date Time Temp Pulse Resp B/P (MAP) Pulse Ox O2 Delivery O2 Flow Rate FiO2 09/09/17 14:36 69 16 35 09/09/17 13:00 62 16 35 09/09/17 12:00 35 09/09/17 12:00 99.3 82 16 97/83 99 Mechanical Ventilator 35 99.3 09/09/17 12:00 66 09/09/17 10:52 74 16 35 09/09/17 09:37 86 108/61 09/09/17 09:28 86 17 35 09/09/17 08:34 98.9 87 20 108/61 100 Mechanical Ventilator 35 98.9 09/09/17 08:16 79 21 35 09/09/17 08:00 35 09/09/17 08:00 73 09/09/17 04:46 74 16 35 09/09/17 04:00 78 09/09/17 04:00 35 09/09/17 04:00 98.3 87 20 142/102 100 Mechanical Ventilator 35 98.3 09/09/17 02:32 94 25 35 09/09/17 01:28 80 22 35 09/09/17 00:00 35 09/09/17 00:00 98.7 85 20 147/94 100 Mechanical Ventilator 35 98.7 09/09/17 00:00 79 09/08/17 23:04 84 21 35 09/08/17 21:24 83 22 35 09/08/17 20:51 89 128/72 09/08/17 20:00 89 09/08/17 20:00 97.7 86 20 128/72 100 Mechanical Ventilator 35 97.7 09/08/17 19:50 35 09/08/17 19:27 91 22 35 09/08/17 16:59 88 22 35 09/08/17 16:00 87 09/08/17 16:00 35 09/08/17 16:00 97.9 65 20 127/75 99 Mechanical Ventilator 35 97.9 09/08/17 15:30 92 21 35 Intake and Output 09/08/17 09/09/17 19:00 07:00 Intake Total 600 ml 865.000 ml Output Total 550 ml 450 ml Balance 50 ml 415.000 ml Intake Free Water 100 ml 150 ml IV Total 110 ml 305.000 ml Tube Feeding 360 ml 360 ml Other 30 ml 50 ml Output Urine Total 550 ml 450 ml # Bowel Movements 2 2 Laboratory Tests 09/09/17 04:54: White Blood Count 13.9H, Red Blood Count 4.37L, Hemoglobin 11.8L, Hematocrit 36.5L, Mean Corpuscular Volume 84, Mean Corpuscular Hemoglobin 27.1, Mean Corpuscular Hemoglobin Concent 32.3, Red Cell Distribution Width 15.3H, Platelet Count 262, Mean Platelet Volume 6.7, Neutrophils (%) (Auto) 64.2, Lymphocytes (%) (Auto) 15.1L, Monocytes (%) (Auto) 11.9H, Eosinophils (%) (Auto ) 8.0H, Basophils (%) (Auto) 0.9, Sodium Level 139, Potassium Level 3.5, Chloride Level 104, Carbon Dioxide Level 26, Anion Gap 9, Blood Urea Nitrogen 15 , Creatinine 0.9, Estimat Glomerular Filtration Rate > 60, Glucose Level 105, Calcium Level 9.0, Total Bilirubin 0.4, Aspartate Amino Transf (AST/SGOT) 34, Alanine Aminotransferase (ALT/SGPT) 37, Alkaline Phosphatase 119H, Pro-B-Type Natriuretic Peptide 779H, Total Protein 7.6, Albumin 2.7L, Globulin 4.9, Albumin /Globulin Ratio 0.6L Height (Feet): 5 Height (Inches): 8.00 Weight (Pounds): 146 General Appearance: lethargic EENT: normal ENT inspection Neck: normal alignment Cardiovascular: normal peripheral pulses, normal rate, regular rhythm Respiratory/Chest: chest wall non-tender, lungs clear, normal breath sounds Abdomen: normal bowel sounds, non tender, soft Extremities: normal inspection Edema: no edema noted Arm (L), no edema noted Arm (R), no edema noted Leg (L), no edema noted Leg (R), no edema noted Pedal (L), no edema noted Pedal (R), no edema noted Generalized Neurologic: motor weakness Skin: normal pigmentation, warm/dry Alex Grey DO Sep 09, 2017 14:39
[2017-09-09 16:50] VITALS: BP 106/54
[2017-09-09 20:00] VITALS: BP 140/67
[2017-09-09] MEDS: Ciprofloxacin 500mg tab ORAL SCH (20:42)
[2017-09-10] VITALS: BP 145/55
[2017-09-10] MEDS: Meropenem 1 GM in NS 55 ML IVPB SCH ×3 (02:04→17:56)
[2017-09-10 04:00] VITALS: BP 120/66
[2017-09-10 07:22] LABS: BASOPHILS % (AUTO) 0.8 % (0.0-2.0); EOSINOPHILS % (AUTO) 17.1 % (0.0-3.0); HEMATOCRIT 34.7 % (42.0-52.0); HEMOGLOBIN 10.8 G/DL (14.2-18.0); LYMPHOCYTES % (AUTO) 24.2 % (20.0-45.0); MEAN CORPUSCULAR VOLUME 83 FL (80-99); MONOCYTES % (AUTO) 9.8 % (1.0-10.0); NEUTROPHILS % (AUTO) 48.2 % (45.0-75.0); PLATELET COUNT 238 K/UL (150-450); RED BLOOD COUNT 4.16 M/UL (4.70-6.10); RED CELL DISTRIBUTION WIDTH 15.4 % (11.6-14.8); WHITE BLOOD COUNT 11.3 K/UL (4.8-10.8)
[2017-09-10 07:44] LABS: ANION GAP 7 mmol/L (5-15); BLOOD UREA NITROGEN 13 mg/dL (7-18); CALCIUM 8.9 MG/DL (8.5-10.1); CARBON DIOXIDE 27 MMOL/L (21-32); CHLORIDE 106 MMOL/L (98-107); CREATININE 0.9 MG/DL (0.55-1.30); POTASSIUM 3.1 MMOL/L (3.5-5.1); SODIUM 139 MMOL/L (136-145)
[2017-09-10 08:00] VITALS: BP 125/62
[2017-09-10] MEDS: Pantoprazole Inj IV SCH (08:55)
[2017-09-10] MEDS: Vancomycin 750mg/NS 250ml IVPB SCH ×2 (08:55→20:13)
[2017-09-10] MEDS: Ciprofloxacin 500mg tab ORAL SCH ×2 (08:56→20:17)
[2017-09-10] MEDS: Heparin 5000 units/ml inj SUBQ SCH ×2 (09:04→20:21)
--- NOTE | 2017-09-10 10:46 | General Progress Note ---
Assessment/Plan Status: stable Assessment/Plan # Leukocytosis secondary to underlying infection. --> wbc improving --> continue abx, monitor for improvement. # Sepsis --> Pt on IV VANCOMYCIN Q12 --> monitor for improvement. --> improving # Anemia due to underlying chronic disease. --> anemia w/u has been reviewed, will trend daily --> hgb goal >7 # Coagulopathy likely secondary to decreased p.o. intake. # History of pneumonia. --> Imaging reviewed. Decreased lung volume. --> 09/09 xr shows no changes Subjective Date patient seen: Sep 10, 2017 ROS Limited/Unobtainable: Yes Allergies: Coded Allergies: No Known Allergies (Unverified , 10/20/16) All Systems: reviewed and negative except above Subjective Chest xr shows no changes. WBC improving. Vitals are stable. Objective Last 24 Hour Vital Signs Date Time Temp Pulse Resp B/P (MAP) Pulse Ox O2 Delivery O2 Flow Rate FiO2 09/10/17 08:55 72 124/68 09/10/17 08:50 83 17 35 09/10/17 08:00 63 09/10/17 08:00 98.4 73 17 125/62 100 Mechanical Ventilator 35 98.4 09/10/17 08:00 35 09/10/17 07:02 70 16 35 09/10/17 05:02 66 16 35 09/10/17 04:00 72 09/10/17 04:00 35 09/10/17 04:00 98.8 64 17 120/66 100 Mechanical Ventilator 35 98.8 09/10/17 03:05 71 18 35 09/10/17 01:10 72 18 35 09/10/17 00:00 78 09/10/17 00:00 98.9 79 17 145/55 100 Mechanical Ventilator 35 98.9 09/10/17 00:00 35 09/09/17 22:32 80 16 35 09/09/17 20:58 74 17 35 09/09/17 20:49 74 140/67 09/09/17 20:00 35 09/09/17 20:00 98.2 74 17 140/67 100 Mechanical Ventilator 35 98.2 09/09/17 20:00 71 09/09/17 18:51 73 16 35 09/09/17 16:50 99.3 86 17 106/54 100 Mechanical Ventilator 35 99.3 09/09/17 16:43 62 16 35 09/09/17 16:00 35 09/09/17 16:00 75 09/09/17 14:36 69 16 35 09/09/17 13:00 62 16 35 09/09/17 12:00 35 09/09/17 12:00 99.3 82 16 97/83 99 Mechanical Ventilator 35 99.3 09/09/17 12:00 66 09/09/17 10:52 74 16 35 Intake and Output 09/09/17 09/10/17 19:00 07:00 Intake Total 825.000 ml 690.0 ml Output Total 500 ml 500 ml Balance 325.000 ml 190.0 ml Intake Free Water 100 ml IV Total 305.000 ml 360.0 ml Tube Feeding 360 ml 330 ml Other 60 ml Output Urine Total 500 ml 500 ml # Bowel Movements 2 2 Laboratory Tests 09/10/17 05:50: White Blood Count 11.3H, Red Blood Count 4.16L, Hemoglobin 10.8L, Hematocrit 34.7L, Mean Corpuscular Volume 83, Mean Corpuscular Hemoglobin 26.0L, Mean Corpuscular Hemoglobin Concent 31.2L, Red Cell Distribution Width 15.4H, Platelet Count 238, Mean Platelet Volume 7.5, Neutrophils (%) (Auto) 48.2, Lymphocytes (%) (Auto) 24.2, Monocytes (%) (Auto) 9.8, Eosinophils (%) (Auto) 17.1H, Basophils (%) (Auto) 0.8, Sodium Level 139, Potassium Level 3.1L, Chloride Level 106, Carbon Dioxide Level 27, Anion Gap 7, Blood Urea Nitrogen 13 , Creatinine 0.9, Estimat Glomerular Filtration Rate > 60, Glucose Level 99, Calcium Level 8.9, Vancomycin Level Trough 11.9 Height (Feet): 5 Height (Inches): 8.00 Weight (Pounds): 146 General Appearance: no apparent distress EENT: PERRL/EOMI Neck: normal alignment Cardiovascular: normal peripheral pulses Respiratory/Chest: no respiratory distress Abdomen: soft Justin Anthony MD Sep 10, 2017 10:46
--- NOTE | 2017-09-10 11:05 | Pulmonolgy Critical Care Note ---
Critical Care - Asmt/Plan Problems: (1) Acute on chronic respiratory failure (2) Sepsis (3) Healthcare associated bacterial pneumonia (4) COPD (chronic obstructive pulmonary disease) (5) alf resident (6) Alzheimer disease (7) Feeding by G-tube Respiratory: monitor respiratory rate, adjust FIO2, CXR Cardiac: continue to monitor HR/BP Renal: F/U I&O Infectious Disease: check cultures, continue antibiotics Gastrointestinal: continue feedings/current rate Endocrine: monitor blood sugar Hematologic: transfuse if hgb<8.5 Neurologic: PRN Morphine, keep patient comfortable Prophylaxis: Heparin Notes Reviewed: cardio, renal Discussed with: nurses, consultants, case pickermanager summer - Objective Last 24 Hour Vital Signs Date Time Temp Pulse Resp B/P (MAP) Pulse Ox O2 Delivery O2 Flow Rate FiO2 09/10/17 11:01 75 20 35 09/10/17 08:55 72 124/68 09/10/17 08:50 83 17 35 09/10/17 08:00 63 09/10/17 08:00 98.4 73 17 125/62 100 Mechanical Ventilator 35 98.4 09/10/17 08:00 35 09/10/17 07:02 70 16 35 09/10/17 05:02 66 16 35 09/10/17 04:00 72 09/10/17 04:00 35 09/10/17 04:00 98.8 64 17 120/66 100 Mechanical Ventilator 35 98.8 09/10/17 03:05 71 18 35 09/10/17 01:10 72 18 35 09/10/17 00:00 78 09/10/17 00:00 98.9 79 17 145/55 100 Mechanical Ventilator 35 98.9 09/10/17 00:00 35 09/09/17 22:32 80 16 35 09/09/17 20:58 74 17 35 09/09/17 20:49 74 140/67 09/09/17 20:00 35 09/09/17 20:00 98.2 74 17 140/67 100 Mechanical Ventilator 35 98.2 09/09/17 20:00 71 09/09/17 18:51 73 16 35 09/09/17 16:50 99.3 86 17 106/54 100 Mechanical Ventilator 35 99.3 09/09/17 16:43 62 16 35 09/09/17 16:00 35 09/09/17 16:00 75 09/09/17 14:36 69 16 35 09/09/17 13:00 62 16 35 09/09/17 12:00 35 09/09/17 12:00 99.3 82 16 97/83 99 Mechanical Ventilator 35 99.3 09/09/17 12:00 66 Status: awake Condition: critical HEENT: atraumatic Neck: full ROM Heart: HR/BP stable Abdomen: soft, non-tender Extremities: no C/C/E Micro: Microbiology Date/Time Source Procedure Growth Status 09/08/17 17:55 Blood Blood Culture - Preliminary NO GROWTH AFTER 24 HOURS Resulted 09/08/17 17:40 Blood Blood Culture - Preliminary NO GROWTH AFTER 24 HOURS Resulted Critical Care - Subjective ROS Limited/Unobtainable: No Condition: critical EKG Rhythm: Sinus Rhythm FI02: 35 Vent Support Breath Rate: 16 Vent Support Mode: AC Vent Tidal Volume: 600 Sputum Amount: Moderate PEEP: 5.0 PIP: 31 Tube Feeding Amount: 30 I&O: Intake and Output 09/09/17 09/10/17 19:00 07:00 Intake Total 825.000 ml 690.0 ml Output Total 500 ml 500 ml Balance 325.000 ml 190.0 ml Intake Free Water 100 ml IV Total 305.000 ml 360.0 ml Tube Feeding 360 ml 330 ml Other 60 ml Output Urine Total 500 ml 500 ml # Bowel Movements 2 2 CXR: No change Labs: Laboratory Tests Test 09/10/17 05:50 White Blood Count 11.3 K/UL (4.8-10.8) H Red Blood Count 4.16 M/UL (4.70-6.10) L Hemoglobin 10.8 G/DL (14.2-18.0) L Hematocrit 34.7 % (42.0-52.0) L Mean Corpuscular Volume 83 FL (80-99) Mean Corpuscular Hemoglobin 26.0 PG (27.0-31.0) L Mean Corpuscular Hemoglobin Concent 31.2 G/DL (32.0-36.0) L Red Cell Distribution Width 15.4 % (11.6-14.8) H Platelet Count 238 K/UL (150-450) Mean Platelet Volume 7.5 FL (6.5-10.1) Neutrophils (%) (Auto) 48.2 % (45.0-75.0) Lymphocytes (%) (Auto) 24.2 % (20.0-45.0) Monocytes (%) (Auto) 9.8 % (1.0-10.0) Eosinophils (%) (Auto) 17.1 % (0.0-3.0) H Basophils (%) (Auto) 0.8 % (0.0-2.0) Sodium Level 139 MMOL/L (136-145) Potassium Level 3.1 MMOL/L (3.5-5.1) L Chloride Level 106 MMOL/L (98-107) Carbon Dioxide Level 27 MMOL/L (21-32) Anion Gap 7 mmol/L (5-15) Blood Urea Nitrogen 13 mg/dL (7-18) Creatinine 0.9 MG/DL (0.55-1.30) Estimat Glomerular Filtration Rate > 60 mL/min (>60) Glucose Level 99 MG/DL (74-106) Calcium Level 8.9 MG/DL (8.5-10.1) Vancomycin Level Trough 11.9 ug/mL (5.0-12.0) Rocio Uriarte MD Sep 10, 2017 11:05
[2017-09-10 12:00] VITALS: BP 96/69
--- NOTE | 2017-09-10 12:42 | Infectious Diseases Prog Note ---
Assessment/Plan Assessment/Plan ASSESSMENT: The patient is a 72-year-old male with multiple medical problems who was admitted to this medical center with: 1. Sepsis; resolved 2. Leukocytosis; recurrent; improving 3. Status post transient hypertension. 4. Possible ventilator-associated pneumonia . -u.a wbc 2/4, nit neg, leuk +2; ucx Neg -Bcx 04/18 CoNS (contaminant); repeat Bcx NTD; 09/06 2/ S.epi; Bcx 09/08 NTD- repeat CONS bacteremia- likely contaminants --echo not able to be done as patient too contracted -sp cx Serratia marcenses (R ancef, otherwise S); MDR PsA (R Cipro, Cefepime ; I Genta, Ceftazidime; S Imipenem; repeat GNR; repeat Sp cx 09/06 PsA ( different strain)- R Imipenem I Levo, S Cefepime, Cipro -CXR: The right hemidiaphragm is elevated, as previously. Atelectatic changes are seen at the right lung base. Atelectasis is also seen in the left perihilar region. The lungs and pleural spaces are otherwise clear -cdiff neg -. History of aspiration pneumonia. -. Possible urinary tract infection/history of ESBL E. coli. -. History of respiratory failure, on the vent. -. Status post PEG, dysphagia. -. History of Aerococcus bacteremia. -. History of ESBL E. coli and healthcare-associated pneumonia. -. Osteoarthritis. -. Hypertension. -. Chronic obstructive pulmonary disease. -. GERD. -. Helicobacter pylori in the past. -. Dementia/psychosis. PLAN: 1. Continue meropenem #7/10 and Cipro #2/5 for possible Serratia and PsA PNA vs tracheitis Continue IV Vancomycin abx d#7/10 for staph bacteremia -monitor QTc -Ok to discharge on above regimen 09/09 SP Levaquin #3 -09/07 SP IV vancomycin #4 -09/04 SP Cefepime and Flagyl x1 03/22 SP Ancef x1 (periop) 03/21 SP Meropenem #14 03/20 SP IV Vanco #10 03/15/17 SP Dapto x1 03/08 SP vancomycin d# 5 03/07/17 SP Zosyn d# 4 2. Monitor CBC. 3. Monitor BMP. 4. f/u repeat Bcx x2 5. Monitor chest x-ray. 6. Monitor the patient's clinical course and laboratories and based on those we will do further recommendation. Thank you, Dr. Anthony, for allowing me to participate in the care of this patient. I will follow the patient with you during this hospitalization. Discussed with RN. Subjective Allergies: Coded Allergies: No Known Allergies (Unverified , 10/20/16) Subjective afebrile Fio2 35% bacteremic S. epi; repeat bcx NTD leukocytosis recurrent; improving ECHo was not able to be done given contractures Objective Vital Signs Last 24 Hour Vital Signs Date Time Temp Pulse Resp B/P (MAP) Pulse Ox O2 Delivery O2 Flow Rate FiO2 09/10/17 11:01 75 20 35 09/10/17 08:55 72 124/68 09/10/17 08:50 83 17 35 09/10/17 08:00 63 09/10/17 08:00 98.4 73 17 125/62 100 Mechanical Ventilator 35 98.4 09/10/17 08:00 35 09/10/17 07:02 70 16 35 09/10/17 05:02 66 16 35 09/10/17 04:00 72 09/10/17 04:00 35 09/10/17 04:00 98.8 64 17 120/66 100 Mechanical Ventilator 35 98.8 09/10/17 03:05 71 18 35 09/10/17 01:10 72 18 35 09/10/17 00:00 78 09/10/17 00:00 98.9 79 17 145/55 100 Mechanical Ventilator 35 98.9 09/10/17 00:00 35 09/09/17 22:32 80 16 35 09/09/17 20:58 74 17 35 09/09/17 20:49 74 140/67 09/09/17 20:00 35 09/09/17 20:00 98.2 74 17 140/67 100 Mechanical Ventilator 35 98.2 09/09/17 20:00 71 09/09/17 18:51 73 16 35 09/09/17 16:50 99.3 86 17 106/54 100 Mechanical Ventilator 35 99.3 09/09/17 16:43 62 16 35 09/09/17 16:00 35 09/09/17 16:00 75 09/09/17 14:36 69 16 35 09/09/17 13:00 62 16 35 Height (Feet): 5 Height (Inches): 8.00 Weight (Pounds): 146 Objective HEENT: Mild pale conjunctivae. No icterus. NECK: Trach in place. CHEST: Coarse breathing sounds. HEART: S1 and S2. ABDOMEN: Soft. PEG tube in place. EXTREMITIES: No cyanosis. NEUROLOGIC: Awake and alert. Microbiology Date/Time Source Procedure Growth Status 09/08/17 17:55 Blood Blood Culture - Preliminary NO GROWTH AFTER 24 HOURS Resulted 09/08/17 17:40 Blood Blood Culture - Preliminary NO GROWTH AFTER 24 HOURS Resulted Laboratory Tests Test 09/10/17 05:50 White Blood Count 11.3 K/UL (4.8-10.8) H Red Blood Count 4.16 M/UL (4.70-6.10) L Hemoglobin 10.8 G/DL (14.2-18.0) L Hematocrit 34.7 % (42.0-52.0) L Mean Corpuscular Volume 83 FL (80-99) Mean Corpuscular Hemoglobin 26.0 PG (27.0-31.0) L Mean Corpuscular Hemoglobin Concent 31.2 G/DL (32.0-36.0) L Red Cell Distribution Width 15.4 % (11.6-14.8) H Platelet Count 238 K/UL (150-450) Mean Platelet Volume 7.5 FL (6.5-10.1) Neutrophils (%) (Auto) 48.2 % (45.0-75.0) Lymphocytes (%) (Auto) 24.2 % (20.0-45.0) Monocytes (%) (Auto) 9.8 % (1.0-10.0) Eosinophils (%) (Auto) 17.1 % (0.0-3.0) H Basophils (%) (Auto) 0.8 % (0.0-2.0) Sodium Level 139 MMOL/L (136-145) Potassium Level 3.1 MMOL/L (3.5-5.1) L Chloride Level 106 MMOL/L (98-107) Carbon Dioxide Level 27 MMOL/L (21-32) Anion Gap 7 mmol/L (5-15) Blood Urea Nitrogen 13 mg/dL (7-18) Creatinine 0.9 MG/DL (0.55-1.30) Estimat Glomerular Filtration Rate > 60 mL/min (>60) Glucose Level 99 MG/DL (74-106) Calcium Level 8.9 MG/DL (8.5-10.1) Vancomycin Level Trough 11.9 ug/mL (5.0-12.0) Current Medications Medications (Trade) Dose Ordered Sig/Ant Route PRN Reason Start Time Stop Time Status Last Admin Dose Admin Acetaminophen (Tylenol) 650 mg Q4H PRN ORAL FEVER 09/04/17 12:30 10/04/17 12:29 Carvedilol (Coreg) 3.125 mg EVERY 12 HOURS GT 09/04/17 21:00 10/04/17 20:59 09/10/17 08:55 Ciprofloxacin (Cipro 500mg tab) 500 mg EVERY 12 HOURS ORAL 09/09/17 21:00 09/16/17 20:59 09/10/17 08:56 Dextrose (Dextrose 50%) STAT PRN IV Hypoglycemia 09/04/17 12:30 10/04/17 12:29 Heparin Sodium (Porcine) (Heparin 5000 units/ml) 5,000 units EVERY 12 HOURS SUBQ 09/04/17 21:00 10/04/17 20:59 09/10/17 09:04 Lorazepam (Ativan 2mg/ml 1ml) 2 mg Q2H PRN IV For Anxiety 09/04/17 12:30 09/11/17 12:29 Meropenem 1 gm/ Sodium Chloride 55 ml @ 110 mls/hr Q8H IVPB 09/04/17 18:00 09/13/17 17:59 09/10/17 09:05 Morphine Sulfate (Morphine Sulfate) 4 mg Q4H PRN IVP Severe Pain (Pain Scale 7-10) 09/04/17 12:30 09/11/17 12:29 09/05/17 03:00 Ondansetron HCl (Zofran) 4 mg Q6H PRN IVP Nausea & Vomiting 09/04/17 12:30 10/04/17 12:29 09/05/17 23:51 Pantoprazole (Protonix) 40 mg DAILY IV 09/05/17 09:00 10/05/17 08:59 09/10/17 08:55 Polyethylene Glycol (Miralax) 17 gm DAILYPRN PRN ORAL Constipation 09/04/17 12:30 10/04/17 12:29 Vancomycin HCl (Vanco rx to dose) 1 ea DAILY PRN MISC Per rx protocol 09/08/17 17:30 10/08/17 17:29 Vancomycin/Sodium Chloride 250 ml @ 166.667 mls/hr Q12H IVPB 09/08/17 18:30 09/13/17 18:29 09/10/17 08:55 Alise Polanco M.D. Sep 10, 2017 12:42
--- NOTE | 2017-09-10 14:04 | General Progress Note ---
Assessment/Plan Problem List: (1) Sepsis ICD Codes: A41.9 - Sepsis, unspecified organism SNOMED: 96968362 (2) Acute on chronic respiratory failure ICD Codes: J96.20 - Acute and chronic respiratory failure, unspecified whether with hypoxia or hypercapnia SNOMED: 99894263 (3) Anemia ICD Codes: D64.9 - Anemia, unspecified SNOMED: 602585054 Status: unchanged Assessment/Plan vent abx cbc bmp am ltach eval Subjective Constitutional: Reports: weakness Allergies: Coded Allergies: No Known Allergies (Unverified , 10/20/16) All Systems: reviewed and negative except above Subjective trach vent altered Objective Last 24 Hour Vital Signs Date Time Temp Pulse Resp B/P (MAP) Pulse Ox O2 Delivery O2 Flow Rate FiO2 09/10/17 12:38 67 18 35 09/10/17 12:00 35 09/10/17 12:00 63 09/10/17 11:01 75 20 35 09/10/17 08:55 72 124/68 09/10/17 08:50 83 17 35 09/10/17 08:00 63 09/10/17 08:00 98.4 73 17 125/62 100 Mechanical Ventilator 35 98.4 09/10/17 08:00 35 09/10/17 07:02 70 16 35 09/10/17 05:02 66 16 35 09/10/17 04:00 72 09/10/17 04:00 35 09/10/17 04:00 98.8 64 17 120/66 100 Mechanical Ventilator 35 98.8 09/10/17 03:05 71 18 35 09/10/17 01:10 72 18 35 09/10/17 00:00 78 09/10/17 00:00 98.9 79 17 145/55 100 Mechanical Ventilator 35 98.9 09/10/17 00:00 35 09/09/17 22:32 80 16 35 09/09/17 20:58 74 17 35 09/09/17 20:49 74 140/67 09/09/17 20:00 35 09/09/17 20:00 98.2 74 17 140/67 100 Mechanical Ventilator 35 98.2 09/09/17 20:00 71 09/09/17 18:51 73 16 35 09/09/17 16:50 99.3 86 17 106/54 100 Mechanical Ventilator 35 99.3 09/09/17 16:43 62 16 35 09/09/17 16:00 35 09/09/17 16:00 75 09/09/17 14:36 69 16 35 Intake and Output 09/09/17 09/10/17 19:00 07:00 Intake Total 825.000 ml 690.0 ml Output Total 500 ml 500 ml Balance 325.000 ml 190.0 ml Intake Free Water 100 ml IV Total 305.000 ml 360.0 ml Tube Feeding 360 ml 330 ml Other 60 ml Output Urine Total 500 ml 500 ml # Bowel Movements 2 2 Laboratory Tests 09/10/17 05:50: White Blood Count 11.3H, Red Blood Count 4.16L, Hemoglobin 10.8L, Hematocrit 34.7L, Mean Corpuscular Volume 83, Mean Corpuscular Hemoglobin 26.0L, Mean Corpuscular Hemoglobin Concent 31.2L, Red Cell Distribution Width 15.4H, Platelet Count 238, Mean Platelet Volume 7.5, Neutrophils (%) (Auto) 48.2, Lymphocytes (%) (Auto) 24.2, Monocytes (%) (Auto) 9.8, Eosinophils (%) (Auto) 17.1H, Basophils (%) (Auto) 0.8, Sodium Level 139, Potassium Level 3.1L, Chloride Level 106, Carbon Dioxide Level 27, Anion Gap 7, Blood Urea Nitrogen 13 , Creatinine 0.9, Estimat Glomerular Filtration Rate > 60, Glucose Level 99, Calcium Level 8.9, Vancomycin Level Trough 11.9 Height (Feet): 5 Height (Inches): 8.00 Weight (Pounds): 146 General Appearance: lethargic EENT: normal ENT inspection Neck: normal alignment Cardiovascular: normal peripheral pulses, normal rate, regular rhythm Respiratory/Chest: chest wall non-tender, lungs clear, normal breath sounds Abdomen: normal bowel sounds, non tender, soft Extremities: normal inspection Edema: no edema noted Arm (L), no edema noted Arm (R), no edema noted Leg (L), no edema noted Leg (R), no edema noted Pedal (L), no edema noted Pedal (R), no edema noted Generalized Neurologic: motor weakness Skin: normal pigmentation, warm/dry Alex Grey DO Sep 10, 2017 14:04
[2017-09-10 16:00] VITALS: BP 119/48
[2017-09-10 20:00] VITALS: BP 118/54
[2017-09-10] MEDS: Vancomycin 1gm/D5W 275ml IVPB SCH ×2 (20:35)
[2017-09-11] VITALS: BP 102/51
[2017-09-11] MEDS: Meropenem 1 GM in NS 55 ML IVPB SCH ×3 (01:29→18:19)
[2017-09-11 04:00] VITALS: BP 101/65
[2017-09-11 05:14] LABS: BASOPHILS % (AUTO) 0.8 % (0.0-2.0); EOSINOPHILS % (AUTO) 17.5 % (0.0-3.0); HEMATOCRIT 38.4 % (42.0-52.0); HEMOGLOBIN 12.2 G/DL (14.2-18.0); LYMPHOCYTES % (AUTO) 19.4 % (20.0-45.0); MEAN CORPUSCULAR VOLUME 84 FL (80-99); MONOCYTES % (AUTO) 9.3 % (1.0-10.0); NEUTROPHILS % (AUTO) 52.9 % (45.0-75.0); PLATELET COUNT 277 K/UL (150-450); RED BLOOD COUNT 4.58 M/UL (4.70-6.10); RED CELL DISTRIBUTION WIDTH 15.1 % (11.6-14.8); WHITE BLOOD COUNT 11.9 K/UL (4.8-10.8)
[2017-09-11 05:19] LABS: ALANINE AMINOTRANSFERASE 33 U/L (12-78); ALBUMIN 2.4 G/DL (3.4-5.0); ALBUMIN/GLOBULIN RATIO 0.5 (1.0-2.7); ALKALINE PHOSPHATASE 104 U/L (46-116); ANION GAP 5 mmol/L (5-15); ASPARTATE AMINO TRANSFERASE 33 U/L (15-37); BILIRUBIN,TOTAL 0.5 MG/DL (0.2-1.0); BLOOD UREA NITROGEN 13 mg/dL (7-18); CALCIUM 8.6 MG/DL (8.5-10.1); CARBON DIOXIDE 27 MMOL/L (21-32); CHLORIDE 106 MMOL/L (98-107); CREATININE 0.9 MG/DL (0.55-1.30); PHOSPHORUS 2.4 MG/DL (2.5-4.9); POTASSIUM 3.2 MMOL/L (3.5-5.1); SODIUM 138 MMOL/L (136-145)
--- NOTE | 2017-09-11 06:54 | Pulmonology Progress Note ---
Assessment/Plan Assessment/Plan ASSESSMENT Sepsis with Staph epidermidis Healthcare associated pneumonia with Pseudomonas , Serratia Possible ventilator associated pneumonia Acute on chronic respiratory failure with ventilator dependence and tracheostomy E/lyte imbalance : hypo P, hypo k COPD Hypertension Dysphagia G-tube Anemia of chronic disease Alzheimer dementia Severe protein calorie malnutrition Functional quadriplegia PLAN OF CARE TOÑITO Ventilator support, tracheostomy care, Pulmonary toilet Baseline ABG stable on current settings keep as is and titrated as needed Sputum culture positive for Pseudomonas Serratia ID follows antibiotics as per ID Patient possibly has ventilator associated pneumonia versus healthcare associated pneumonia blood culture positive for staph epidermidis , SCON likely contaminant as per ID, surveillance blood culture negative ECHO unable to be done since patient contracted Strict aspiration precaution G-tube feeding manager grant recommendations implemented in plan of care close monitoring of blood pressure, remained stable , continue beta kirk monitor HH with goal to keep hemoglobin above 7 milieu technician follows , likely anemia of chronic disease Monitor renal parameters electrolytes, correct electrolytes as needed, avoid nephrotoxic replace K and P today DVT and GI prophylaxis supportive care bowel regimen case discussed and evaluated by supervising physician Subjective Allergies: Coded Allergies: No Known Allergies (Unverified , 10/20/16) Subjective leukocytosis today, afebrile No signs of respiratory distress on current settings Objective Last 24 Hour Vital Signs Date Time Temp Pulse Resp B/P (MAP) Pulse Ox O2 Delivery O2 Flow Rate FiO2 09/11/17 04:40 66 17 35 09/11/17 04:00 98.1 63 17 101/65 100 Mechanical Ventilator 35 98.1 09/11/17 04:00 35 09/11/17 03:37 63 09/11/17 03:12 66 16 35 09/11/17 00:44 69 16 35 09/11/17 00:00 35 09/11/17 00:00 98.9 71 17 102/51 100 Mechanical Ventilator 35 98.9 09/11/17 00:00 93 09/10/17 22:58 65 16 35 09/10/17 21:18 63 18 35 09/10/17 20:17 70 118/54 09/10/17 20:00 35 09/10/17 20:00 98.7 70 18 118/54 100 Mechanical Ventilator 35 98.7 09/10/17 19:21 69 09/10/17 19:14 66 16 35 09/10/17 16:41 67 18 35 09/10/17 16:00 98.6 63 16 119/48 100 Mechanical Ventilator 35 98.6 09/10/17 16:00 35 09/10/17 16:00 61 09/10/17 14:41 69 18 35 09/10/17 12:38 67 18 35 09/10/17 12:00 35 09/10/17 12:00 99.0 65 16 96/69 100 Mechanical Ventilator 35 99.0 09/10/17 12:00 63 09/10/17 11:01 75 20 35 09/10/17 08:55 72 124/68 09/10/17 08:50 83 17 35 09/10/17 08:00 63 09/10/17 08:00 98.4 73 17 125/62 100 Mechanical Ventilator 35 98.4 09/10/17 08:00 35 09/10/17 07:02 70 16 35 Intake and Output 09/10/17 09/11/17 19:00 07:00 Intake Total 415 ml 640.0 ml Output Total 375 ml Balance 40 ml 640.0 ml Intake Free Water 100 ml IV Total 55 ml 330.0 ml Tube Feeding 360 ml 210 ml Output Urine Total 375 ml # Bowel Movements 1 General Appearance: no acute distress, other - Vent AC 600-16-35% HEENT: status post trach - Portex#8, secretions small, clear, thin Respiratory/Chest: lungs clear, no respiratory distress Cardiovascular: normal rate - SR on tele, no JVD Abdomen: normal bowel sounds, soft, non tender, other - G tube Extremities: no edema Neurologic/Psychiatric: abnormal gait - bedridden, other - lethargic, contracted Musculoskeletal: atrophy - BLE Microbiology Date/Time Source Procedure Growth Status 09/08/17 17:55 Blood Blood Culture - Preliminary NO GROWTH AFTER 48 HOURS Resulted 09/08/17 17:40 Blood Blood Culture - Preliminary NO GROWTH AFTER 48 HOURS Resulted Laboratory Tests 09/11/17 04:35: White Blood Count 11.9H, Red Blood Count 4.58L, Hemoglobin 12.2L, Hematocrit 38.4L, Mean Corpuscular Volume 84, Mean Corpuscular Hemoglobin 26.6L, Mean Corpuscular Hemoglobin Concent 31.8L, Red Cell Distribution Width 15.1H, Platelet Count 277, Mean Platelet Volume 7.2, Neutrophils (%) (Auto) 52.9, Lymphocytes (%) (Auto) 19.4L, Monocytes (%) (Auto) 9.3, Eosinophils (%) (Auto) 17.5H, Basophils (%) (Auto) 0.8, Sodium Level 138, Potassium Level 3.2L, Chloride Level 106, Carbon Dioxide Level 27, Anion Gap 5, Blood Urea Nitrogen 13 , Creatinine 0.9, Estimat Glomerular Filtration Rate > 60, Glucose Level 94, Calcium Level 8.6, Phosphorus Level 2.4L, Magnesium Level 2.1, Total Bilirubin 0.5, Aspartate Amino Transf (AST/SGOT) 33, Alanine Aminotransferase (ALT/SGPT) 33, Alkaline Phosphatase 104, Total Protein 7.0, Albumin 2.4L, Globulin 4.6, Albumin/Globulin Ratio 0.5L Current Medications Medications (Trade) Dose Ordered Sig/Ant Route PRN Reason Start Time Stop Time Status Last Admin Dose Admin Acetaminophen (Tylenol) 650 mg Q4H PRN ORAL FEVER 09/04/17 12:30 10/04/17 12:29 Carvedilol (Coreg) 3.125 mg EVERY 12 HOURS GT 09/04/17 21:00 10/04/17 20:59 09/10/17 20:17 Ciprofloxacin (Cipro 500mg tab) 500 mg EVERY 12 HOURS ORAL 09/09/17 21:00 09/16/17 20:59 09/10/17 20:17 Dextrose (Dextrose 50%) STAT PRN IV Hypoglycemia 09/04/17 12:30 10/04/17 12:29 Heparin Sodium (Porcine) (Heparin 5000 units/ml) 5,000 units EVERY 12 HOURS SUBQ 09/04/17 21:00 10/04/17 20:59 09/10/17 20:21 Lorazepam (Ativan 2mg/ml 1ml) 2 mg Q2H PRN IV For Anxiety 09/04/17 12:30 09/11/17 12:29 Meropenem 1 gm/ Sodium Chloride 55 ml @ 110 mls/hr Q8H IVPB 09/04/17 18:00 09/13/17 17:59 09/11/17 01:29 Morphine Sulfate (Morphine Sulfate) 4 mg Q4H PRN IVP Severe Pain (Pain Scale 7-10) 09/04/17 12:30 09/11/17 12:29 09/05/17 03:00 Ondansetron HCl (Zofran) 4 mg Q6H PRN IVP Nausea & Vomiting 09/04/17 12:30 10/04/17 12:29 09/05/17 23:51 Pantoprazole (Protonix) 40 mg DAILY IV 09/05/17 09:00 10/05/17 08:59 09/10/17 08:55 Polyethylene Glycol (Miralax) 17 gm DAILYPRN PRN ORAL Constipation 09/04/17 12:30 10/04/17 12:29 Vancomycin HCl (Vanco rx to dose) 1 ea DAILY PRN MISC Per rx protocol 09/08/17 17:30 10/08/17 17:29 Vancomycin HCl 1 gm/Dextrose 275 ml @ 183.708 mls/hr Q12HR@0830,2030 IVPB 09/10/17 20:30 09/15/17 20:29 09/10/17 20:35 Kacy Gilliam NP Sep 11, 2017 06:54
[2017-09-11 08:00] VITALS: BP 117/71
[2017-09-11] MEDS: Vancomycin 1gm/D5W 275ml IVPB SCH ×4 (08:26→21:01)
--- NOTE | 2017-09-11 09:09 | General Progress Note ---
Assessment/Plan Problem List: (1) Sepsis ICD Codes: A41.9 - Sepsis, unspecified organism SNOMED: 44874805 (2) Acute on chronic respiratory failure ICD Codes: J96.20 - Acute and chronic respiratory failure, unspecified whether with hypoxia or hypercapnia SNOMED: 68351130 (3) Anemia ICD Codes: D64.9 - Anemia, unspecified SNOMED: 684549904 Status: unchanged Assessment/Plan vent abx cbc bmp am ltach eval Subjective Constitutional: Reports: weakness Allergies: Coded Allergies: No Known Allergies (Unverified , 10/20/16) All Systems: reviewed and negative except above Subjective trach vent altered Objective Last 24 Hour Vital Signs Date Time Temp Pulse Resp B/P (MAP) Pulse Ox O2 Delivery O2 Flow Rate FiO2 09/11/17 06:59 58 16 35 09/11/17 04:40 66 17 35 09/11/17 04:00 98.1 63 17 101/65 100 Mechanical Ventilator 35 98.1 09/11/17 04:00 35 09/11/17 03:37 63 09/11/17 03:12 66 16 35 09/11/17 00:44 69 16 35 09/11/17 00:00 35 09/11/17 00:00 98.9 71 17 102/51 100 Mechanical Ventilator 35 98.9 09/11/17 00:00 93 09/10/17 22:58 65 16 35 09/10/17 21:18 63 18 35 09/10/17 20:17 70 118/54 09/10/17 20:00 35 09/10/17 20:00 98.7 70 18 118/54 100 Mechanical Ventilator 35 98.7 09/10/17 19:21 69 09/10/17 19:14 66 16 35 09/10/17 16:41 67 18 35 09/10/17 16:00 98.6 63 16 119/48 100 Mechanical Ventilator 35 98.6 09/10/17 16:00 35 09/10/17 16:00 61 09/10/17 14:41 69 18 35 09/10/17 12:38 67 18 35 09/10/17 12:00 35 09/10/17 12:00 99.0 65 16 96/69 100 Mechanical Ventilator 35 99.0 09/10/17 12:00 63 6/29/18 11:01 75 20 35 Intake and Output 09/10/17 09/11/17 19:00 07:00 Intake Total 415 ml 780.0 ml Output Total 375 ml Balance 40 ml 780.0 ml Intake Free Water 150 ml IV Total 55 ml 330.0 ml Tube Feeding 360 ml 300 ml Output Urine Total 375 ml # Bowel Movements 1 Laboratory Tests 09/11/17 04:35: White Blood Count 11.9H, Red Blood Count 4.58L, Hemoglobin 12.2L, Hematocrit 38.4L, Mean Corpuscular Volume 84, Mean Corpuscular Hemoglobin 26.6L, Mean Corpuscular Hemoglobin Concent 31.8L, Red Cell Distribution Width 15.1H, Platelet Count 277, Mean Platelet Volume 7.2, Neutrophils (%) (Auto) 52.9, Lymphocytes (%) (Auto) 19.4L, Monocytes (%) (Auto) 9.3, Eosinophils (%) (Auto) 17.5H, Basophils (%) (Auto) 0.8, Sodium Level 138, Potassium Level 3.2L, Chloride Level 106, Carbon Dioxide Level 27, Anion Gap 5, Blood Urea Nitrogen 13 , Creatinine 0.9, Estimat Glomerular Filtration Rate > 60, Glucose Level 94, Calcium Level 8.6, Phosphorus Level 2.4L, Magnesium Level 2.1, Total Bilirubin 0.5, Aspartate Amino Transf (AST/SGOT) 33, Alanine Aminotransferase (ALT/SGPT) 33, Alkaline Phosphatase 104, Total Protein 7.0, Albumin 2.4L, Globulin 4.6, Albumin/Globulin Ratio 0.5L Height (Feet): 5 Height (Inches): 8.00 Weight (Pounds): 146 General Appearance: lethargic EENT: normal ENT inspection Neck: normal alignment Cardiovascular: normal peripheral pulses, normal rate, regular rhythm Respiratory/Chest: chest wall non-tender, decreased breath sounds Abdomen: normal bowel sounds, non tender, no organomegaly Extremities: normal inspection Edema: no edema noted Arm (L), no edema noted Arm (R), no edema noted Leg (L), no edema noted Leg (R), no edema noted Pedal (L), no edema noted Pedal (R), no edema noted Generalized Neurologic: motor weakness Skin: normal pigmentation, warm/dry Alex Grey DO Sep 11, 2017 09:09
[2017-09-11] MEDS: Ciprofloxacin 500mg tab ORAL SCH ×2 (09:42→21:02)
[2017-09-11] MEDS: Pantoprazole Inj IV SCH (09:42)
[2017-09-11] MEDS: Heparin 5000 units/ml inj SUBQ SCH ×2 (09:44→21:08)
[2017-09-11 12:00] VITALS: BP 138/54
[2017-09-11] MEDS ORDERED: LORazepam Inj 2mg/ml 1ml IV PRN (12:30)
[2017-09-11] MEDS ORDERED: Potassium Phosphate 20 MM in NS 275 ML IV ONE (12:30)
[2017-09-11] MEDS ORDERED: Morphine Sulfate 4mg/ml Inj IVP PRN (12:30)
--- NOTE | 2017-09-11 13:05 | Infectious Diseases Prog Note ---
Assessment/Plan Assessment/Plan ASSESSMENT: The patient is a 72-year-old male with Sepsis; resolved Leukocytosis; recurrent; improving Status post transient HypoTN Possible ventilator-associated pneumonia . -u.a wbc 2/4, nit neg, leuk +2; ucx Neg -Bcx / CoNS (contaminant); repeat Bcx NTD; 09/06 2/4 S.epi; Bcx 09/08 NTD- repeat CONS bacteremia- likely contaminants --echo not able to be done as patient too contracted -sp cx Serratia marcenses (R ancef, otherwise S); MDR PsA (R Cipro, Cefepime ; I Genta, Ceftazidime; S Imipenem; repeat GNR; repeat Sp cx 09/06 PsA ( different strain)- R Imipenem I Levo, S Cefepime, Cipro -CXR: The right hemidiaphragm is elevated, as previously. Atelectatic changes are seen at the right lung base. Atelectasis is also seen in the left perihilar region. The lungs and pleural spaces are otherwise clear -cdiff neg History of aspiration pneumonia. Possible urinary tract infection/history of ESBL E. coli -. History of respiratory failure, on the vent. -. Status post PEG, dysphagia. -. History of Aerococcus bacteremia. -. History of ESBL E. coli and healthcare-associated pneumonia. -. Osteoarthritis. -. Hypertension. -. Chronic obstructive pulmonary disease. -. GERD. -. Helicobacter pylori in the past. -. Dementia/psychosis. PLAN: Continue meropenem # 8 /10 and Cipro # 3 /5 for possible Serratia and PsA PNA vs tracheitis Continue IV Vancomycin abx d# 8 /10 for staph bacteremia -monitor QTc -Ok to discharge on above regimen 09/09 SP Levaquin #3 -09/07 SP IV vancomycin #4 -09/04 SP Cefepime and Flagyl x1 03/22 SP Ancef x1 (periop) 03/21 SP Meropenem #14 03/20 SP IV Vanco #10 03/15/17 SP Dapto x1 03/08 SP vancomycin d# 5 03/07/17 SP Zosyn d# 4 Monitor CBC. Monitor BMP. f/u repeat Bcx x2 Monitor chest x-ray. Monitor the patient's clinical course and laboratories Subjective Constitutional: Denies: no symptoms, fever, chills, fatigue, anorexia, drenching sweats, other Allergies: Coded Allergies: No Known Allergies (Unverified , 10/20/16) Objective Vital Signs Last 24 Hour Vital Signs Date Time Temp Pulse Resp B/P (MAP) Pulse Ox O2 Delivery O2 Flow Rate FiO2 09/11/17 11:16 62 18 35 09/11/17 09:43 62 117/71 09/11/17 08:35 62 16 35 09/11/17 08:00 59 09/11/17 06:59 58 16 35 09/11/17 04:40 66 17 35 09/11/17 04:00 98.1 63 17 101/65 100 Mechanical Ventilator 35 98.1 09/11/17 04:00 35 09/11/17 03:37 63 09/11/17 03:12 66 16 35 09/11/17 00:44 69 16 35 09/11/17 00:00 35 09/11/17 00:00 98.9 71 17 102/51 100 Mechanical Ventilator 35 98.9 09/11/17 00:00 93 09/10/17 22:58 65 16 35 09/10/17 21:18 63 18 35 09/10/17 20:17 70 118/54 09/10/17 20:00 35 09/10/17 20:00 98.7 70 18 118/54 100 Mechanical Ventilator 35 98.7 09/10/17 19:21 69 09/10/17 19:14 66 16 35 09/10/17 16:41 67 18 35 09/10/17 16:00 98.6 63 16 119/48 100 Mechanical Ventilator 35 98.6 09/10/17 16:00 35 09/10/17 16:00 61 09/10/17 14:41 69 18 35 Height (Feet): 5 Height (Inches): 8.00 Weight (Pounds): 146 HEENT: atraumatic Respiratory/Chest: normal breath sounds Cardiovascular: normal rate Abdomen: soft, non tender Microbiology Date/Time Source Procedure Growth Status 09/08/17 17:55 Blood Blood Culture - Preliminary NO GROWTH AFTER 48 HOURS Resulted 09/08/17 17:40 Blood Blood Culture - Preliminary NO GROWTH AFTER 48 HOURS Resulted Laboratory Tests Test 09/11/17 04:35 White Blood Count 11.9 K/UL (4.8-10.8) H Red Blood Count 4.58 M/UL (4.70-6.10) L Hemoglobin 12.2 G/DL (14.2-18.0) L Hematocrit 38.4 % (42.0-52.0) L Mean Corpuscular Volume 84 FL (80-99) Mean Corpuscular Hemoglobin 26.6 PG (27.0-31.0) L Mean Corpuscular Hemoglobin Concent 31.8 G/DL (32.0-36.0) L Red Cell Distribution Width 15.1 % (11.6-14.8) H Platelet Count 277 K/UL (150-450) Mean Platelet Volume 7.2 FL (6.5-10.1) Neutrophils (%) (Auto) 52.9 % (45.0-75.0) Lymphocytes (%) (Auto) 19.4 % (20.0-45.0) L Monocytes (%) (Auto) 9.3 % (1.0-10.0) Eosinophils (%) (Auto) 17.5 % (0.0-3.0) H Basophils (%) (Auto) 0.8 % (0.0-2.0) Sodium Level 138 MMOL/L (136-145) Potassium Level 3.2 MMOL/L (3.5-5.1) L Chloride Level 106 MMOL/L (98-107) Carbon Dioxide Level 27 MMOL/L (21-32) Anion Gap 5 mmol/L (5-15) Blood Urea Nitrogen 13 mg/dL (7-18) Creatinine 0.9 MG/DL (0.55-1.30) Estimat Glomerular Filtration Rate > 60 mL/min (>60) Glucose Level 94 MG/DL (74-106) Calcium Level 8.6 MG/DL (8.5-10.1) Phosphorus Level 2.4 MG/DL (2.5-4.9) L Magnesium Level 2.1 MG/DL (1.8-2.4) Total Bilirubin 0.5 MG/DL (0.2-1.0) Aspartate Amino Transf (AST/SGOT) 33 U/L (15-37) Alanine Aminotransferase (ALT/SGPT) 33 U/L (12-78) Alkaline Phosphatase 104 U/L (46-116) Total Protein 7.0 G/DL (6.4-8.2) Albumin 2.4 G/DL (3.4-5.0) L Globulin 4.6 g/dL Albumin/Globulin Ratio 0.5 (1.0-2.7) L Current Medications Medications (Trade) Dose Ordered Sig/Ant Route PRN Reason Start Time Stop Time Status Last Admin Dose Admin Acetaminophen (Tylenol) 650 mg Q4H PRN ORAL FEVER 09/04/17 12:30 10/04/17 12:29 Carvedilol (Coreg) 3.125 mg EVERY 12 HOURS GT 09/04/17 21:00 10/04/17 20:59 09/11/17 09:43 Ciprofloxacin (Cipro 500mg tab) 500 mg EVERY 12 HOURS ORAL 09/09/17 21:00 09/16/17 20:59 09/11/17 09:42 Dextrose (Dextrose 50%) STAT PRN IV Hypoglycemia 09/04/17 12:30 10/04/17 12:29 Heparin Sodium (Porcine) (Heparin 5000 units/ml) 5,000 units EVERY 12 HOURS SUBQ 09/04/17 21:00 10/04/17 20:59 09/11/17 09:44 Lorazepam (Ativan 2mg/ml 1ml) 2 mg Q2H PRN IV For Anxiety 09/11/17 12:30 09/18/17 12:29 Meropenem 1 gm/ Sodium Chloride 55 ml @ 110 mls/hr Q8H IVPB 09/04/17 18:00 09/13/17 17:59 09/11/17 09:42 Morphine Sulfate (Morphine Sulfate) 4 mg Q4H PRN IVP Severe Pain (Pain Scale 7-10) 09/11/17 12:30 09/18/17 12:29 Ondansetron HCl (Zofran) 4 mg Q6H PRN IVP Nausea & Vomiting 09/04/17 12:30 10/04/17 12:29 09/05/17 23:51 Pantoprazole (Protonix) 40 mg DAILY IV 09/05/17 09:00 10/05/17 08:59 09/11/17 09:42 Polyethylene Glycol (Miralax) 17 gm DAILYPRN PRN ORAL Constipation 09/04/17 12:30 10/04/17 12:29 Potassium Phosphate 20 mm/ Sodium Chloride 281.6667 ml @ 46.94 mls/hr ONCE ONCE IV 09/11/17 12:30 09/11/17 18:30 Vancomycin HCl (Vanco rx to dose) 1 ea DAILY PRN MISC Per rx protocol 09/08/17 17:30 10/08/17 17:29 Vancomycin HCl 1 gm/Dextrose 275 ml @ 183.708 mls/hr Q12HR@0830,2030 IVPB 09/10/17 20:30 09/15/17 20:29 09/11/17 08:26 Fitz Cannon MD Sep 11, 2017 13:05
--- NOTE | 2017-09-11 13:56 | General Progress Note ---
Assessment/Plan Status: stable Assessment/Plan # Leukocytosis secondary to underlying infection. --> wbc improving --> continue abx, monitor for improvement. # Sepsis --> Pt on IV VANCOMYCIN Q12 --> monitor for improvement. --> improving # Anemia due to underlying chronic disease. --> anemia w/u has been reviewed, will trend daily --> hgb goal >7 # Coagulopathy likely secondary to decreased p.o. intake. # History of pneumonia. --> Imaging reviewed. Decreased lung volume. --> 09/09 xr shows no changes Subjective Date patient seen: Sep 11, 2017 ROS Limited/Unobtainable: Yes Allergies: Coded Allergies: No Known Allergies (Unverified , 10/20/16) All Systems: reviewed and negative except above Subjective Pt remains stable. Vitals are stable. Objective Last 24 Hour Vital Signs Date Time Temp Pulse Resp B/P (MAP) Pulse Ox O2 Delivery O2 Flow Rate FiO2 09/11/17 11:16 62 18 35 09/11/17 09:43 62 117/71 09/11/17 08:35 62 16 35 09/11/17 08:00 59 09/11/17 06:59 58 16 35 09/11/17 04:40 66 17 35 09/11/17 04:00 98.1 63 17 101/65 100 Mechanical Ventilator 35 98.1 09/11/17 04:00 35 09/11/17 03:37 63 09/11/17 03:12 66 16 35 09/11/17 00:44 69 16 35 09/11/17 00:00 35 09/11/17 00:00 98.9 71 17 102/51 100 Mechanical Ventilator 35 98.9 09/11/17 00:00 93 09/10/17 22:58 65 16 35 09/10/17 21:18 63 18 35 09/10/17 20:17 70 118/54 09/10/17 20:00 35 09/10/17 20:00 98.7 70 18 118/54 100 Mechanical Ventilator 35 98.7 09/10/17 19:21 69 09/10/17 19:14 66 16 35 09/10/17 16:41 67 18 35 09/10/17 16:00 98.6 63 16 119/48 100 Mechanical Ventilator 35 98.6 09/10/17 16:00 35 09/10/17 16:00 61 09/10/17 14:41 69 18 35 Intake and Output 09/10/17 09/11/17 19:00 07:00 Intake Total 415 ml 780.0 ml Output Total 375 ml Balance 40 ml 780.0 ml Intake Free Water 150 ml IV Total 55 ml 330.0 ml Tube Feeding 360 ml 300 ml Output Urine Total 375 ml # Bowel Movements 1 Laboratory Tests 09/11/17 04:35: White Blood Count 11.9H, Red Blood Count 4.58L, Hemoglobin 12.2L, Hematocrit 38.4L, Mean Corpuscular Volume 84, Mean Corpuscular Hemoglobin 26.6L, Mean Corpuscular Hemoglobin Concent 31.8L, Red Cell Distribution Width 15.1H, Platelet Count 277, Mean Platelet Volume 7.2, Neutrophils (%) (Auto) 52.9, Lymphocytes (%) (Auto) 19.4L, Monocytes (%) (Auto) 9.3, Eosinophils (%) (Auto) 17.5H, Basophils (%) (Auto) 0.8, Sodium Level 138, Potassium Level 3.2L, Chloride Level 106, Carbon Dioxide Level 27, Anion Gap 5, Blood Urea Nitrogen 13 , Creatinine 0.9, Estimat Glomerular Filtration Rate > 60, Glucose Level 94, Calcium Level 8.6, Phosphorus Level 2.4L, Magnesium Level 2.1, Total Bilirubin 0.5, Aspartate Amino Transf (AST/SGOT) 33, Alanine Aminotransferase (ALT/SGPT) 33, Alkaline Phosphatase 104, Total Protein 7.0, Albumin 2.4L, Globulin 4.6, Albumin/Globulin Ratio 0.5L Height (Feet): 5 Height (Inches): 8.00 Weight (Pounds): 146 General Appearance: no apparent distress EENT: PERRL/EOMI Neck: normal alignment Cardiovascular: normal peripheral pulses Respiratory/Chest: no respiratory distress Abdomen: no mass Justin Anthony MD Sep 11, 2017 13:56
[2017-09-11 16:00] VITALS: BP 141/78
[2017-09-11] MEDS ORDERED: Tubing IV Secondary IV ONE (17:23)
[2017-09-11] MEDS ORDERED: NS 500ML ONE (17:23)
[2017-09-11 20:00] VITALS: BP 139/70
[2017-09-12] VITALS: BP 134/63
[2017-09-12] MEDS: Meropenem 1 GM in NS 55 ML IVPB SCH ×3 (03:02→17:32)
[2017-09-12 04:00] VITALS: BP 100/70
[2017-09-12 05:42] LABS: HEMATOCRIT 39.7 % (42.0-52.0); HEMOGLOBIN 12.5 G/DL (14.2-18.0); MEAN CORPUSCULAR VOLUME 84 FL (80-99); PLATELET COUNT 276 K/UL (150-450); RED BLOOD COUNT 4.71 M/UL (4.70-6.10); RED CELL DISTRIBUTION WIDTH 15.3 % (11.6-14.8); WHITE BLOOD COUNT 9.7 K/UL (4.8-10.8)
[2017-09-12 06:19] LABS: PHOSPHORUS 2.9 MG/DL (2.5-4.9)
[2017-09-12 06:40] LABS: ANION GAP 9 mmol/L (5-15); BLOOD UREA NITROGEN 10 mg/dL (7-18); CARBON DIOXIDE 23 MMOL/L (21-32); CHLORIDE 106 MMOL/L (98-107); CREATININE 0.8 MG/DL (0.55-1.30); SODIUM 138 MMOL/L (136-145)
--- NOTE | 2017-09-12 08:12 | Pulmonology Progress Note ---
Assessment/Plan Assessment/Plan ASSESSMENT Sepsis with Staph epidermidis HCAP with Pseudomonas , Serratia Possible ventilator associated pneumonia Acute on chronic respiratory failure with ventilator dependence and tracheostomy E/lyte imbalance : hypo P, hypo k COPD Hypertension Dysphagia G-tube Anemia of chronic disease Alzheimer dementia Severe protein calorie malnutrition Functional quadriplegia PLAN OF CARE TOÑITO Ventilator support, tracheostomy care, Pulmonary toilet Baseline ABG stable on current settings keep as is and titrated as needed Sputum culture positive for Pseudomonas Serratia ID follows antibiotics as per ID Patient possibly has ventilator associated pneumonia versus healthcare associated pneumonia blood culture positive for staph epidermidis , SCON likely contaminant as per ID, surveillance blood culture negative ECHO unable to be done since patient contracted Strict aspiration precaution G-tube feeding md allergy immunology recommendations implemented in plan of care close monitoring of blood pressure, remained stable , continue beta kirk monitor HH with goal to keep 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 , likely anemia of chronic disease Monitor renal parameters electrolytes, correct electrolytes as needed, avoid nephrotoxic s/p K and P replacement, stable this am DVT and GI prophylaxis supportive care bowel regimen case discussed and evaluated by supervising physician Subjective Allergies: Coded Allergies: No Known Allergies (Unverified , 10/20/16) Subjective leukocytosis today, afebrile No signs of respiratory distress on current settings Objective Last 24 Hour Vital Signs Date Time Temp Pulse Resp B/P (MAP) Pulse Ox O2 Delivery O2 Flow Rate FiO2 09/12/17 07:29 61 16 35 09/12/17 05:26 65 16 35 09/12/17 04:01 72 09/12/17 04:00 98.0 61 18 100/70 100 Mechanical Ventilator 35 98.0 09/12/17 04:00 35 09/12/17 03:30 71 22 35 09/12/17 01:04 52 16 35 09/12/17 00:00 68 09/12/17 00:00 98.1 56 19 134/63 100 Mechanical Ventilator 35 98.1 09/12/17 00:00 35 09/11/17 23:30 61 17 35 09/11/17 21:02 55 141/78 09/11/17 21:00 55 17 35 09/11/17 20:00 35 09/11/17 20:00 58 09/11/17 20:00 98.2 68 18 139/70 100 Mechanical Ventilator 35 98.2 6/30/18 19:30 58 18 35 09/11/17 17:28 57 16 35 09/11/17 16:13 59 22 Mechanical Ventilator 35 09/11/17 16:00 98.4 59 20 141/78 100 Mechanical Ventilator 35 98.4 09/11/17 16:00 35 09/11/17 16:00 63 09/11/17 15:14 59 22 35 09/11/17 12:50 66 16 35 09/11/17 12:00 35 09/11/17 12:00 98.2 54 16 138/54 100 Mechanical Ventilator 35 98.2 09/11/17 12:00 59 09/11/17 11:16 62 18 35 09/11/17 09:43 62 117/71 09/11/17 08:35 62 16 35 Intake and Output 09/11/17 09/12/17 19:00 07:00 Intake Total 773.708 ml 810.0 ml Output Total 550 ml Balance 223.708 ml 810.0 ml Intake Free Water 120 ml 150 ml IV Total 293.708 ml 330.0 ml Tube Feeding 360 ml 330 ml Output Urine Total 550 ml Objective General Appearance: no acute distress, Vent AC 600-16-35% HEENT: status post trach - Portex#8, secretions small, clear, thin Respiratory/Chest: lungs clear, no respiratory distress Cardiovascular: normal rate - SR on tele, no JVD Abdomen: normal bowel sounds, soft, non tender, G tube Extremities: no edema Neurologic/Psychiatric: abnormal gait - bedridden, lethargic, contracted Musculoskeletal: atrophy - BLE Laboratory Tests 09/12/17 04:45: White Blood Count 9.7, Red Blood Count 4.71, Hemoglobin 12.5L, Hematocrit 39.7L , Mean Corpuscular Volume 84, Mean Corpuscular Hemoglobin 26.5L, Mean Corpuscular Hemoglobin Concent 31.5L, Red Cell Distribution Width 15.3H, Platelet Count 276, Mean Platelet Volume 7.3, Neutrophils (%) (Auto) , Lymphocytes (%) (Auto) , Monocytes (%) (Auto) , Eosinophils (%) (Auto) , Basophils (%) (Auto) , Neutrophils % (Manual) [Pending], Lymphocytes % (Manual) [Pending], Platelet Estimate [Pending], Platelet Morphology [Pending], Sodium Level 138, Potassium Level 4.0, Chloride Level 106, Carbon Dioxide Level 23, Anion Gap 9, Blood Urea Nitrogen 10, Creatinine 0.8, Estimat Glomerular Filtration Rate > 60, Glucose Level 96, Calcium Level 9.0, Phosphorus Level 2.9 , Magnesium Level 2.1 09/12/17 07:45: Vancomycin Level Trough [Pending] Current Medications Medications (Trade) Dose Ordered Sig/Ant Route PRN Reason Start Time Stop Time Status Last Admin Dose Admin Acetaminophen (Tylenol) 650 mg Q4H PRN ORAL FEVER 09/04/17 12:30 10/04/17 12:29 Carvedilol (Coreg) 3.125 mg EVERY 12 HOURS GT 09/04/17 21:00 10/04/17 20:59 09/11/17 21:02 Ciprofloxacin (Cipro 500mg tab) 500 mg EVERY 12 HOURS ORAL 09/09/17 21:00 09/16/17 20:59 09/11/17 21:02 Dextrose (Dextrose 50%) STAT PRN IV Hypoglycemia 09/04/17 12:30 10/04/17 12:29 Heparin Sodium (Porcine) (Heparin 5000 units/ml) 5,000 units EVERY 12 HOURS SUBQ 09/04/17 21:00 10/04/17 20:59 09/11/17 21:08 Lorazepam (Ativan 2mg/ml 1ml) 2 mg Q2H PRN IV For Anxiety 09/11/17 12:30 09/18/17 12:29 Meropenem 1 gm/ Sodium Chloride 55 ml @ 110 mls/hr Q8H IVPB 09/04/17 18:00 09/13/17 17:59 09/12/17 03:02 Morphine Sulfate (Morphine Sulfate) 4 mg Q4H PRN IVP Severe Pain (Pain Scale 7-10) 09/11/17 12:30 09/18/17 12:29 Ondansetron HCl (Zofran) 4 mg Q6H PRN IVP Nausea & Vomiting 09/04/17 12:30 10/04/17 12:29 09/05/17 23:51 Pantoprazole (Protonix) 40 mg DAILY IV 09/05/17 09:00 10/05/17 08:59 09/11/17 09:42 Polyethylene Glycol (Miralax) 17 gm DAILYPRN PRN ORAL Constipation 09/04/17 12:30 10/04/17 12:29 Vancomycin HCl (Vanco rx to dose) 1 ea DAILY PRN MISC Per rx protocol 09/08/17 17:30 10/08/17 17:29 Vancomycin HCl 1 gm/Dextrose 275 ml @ 183.708 mls/hr Q12HR@0830,2030 IVPB 09/10/17 20:30 09/15/17 20:29 09/11/17 21:01 Kacy Gilliam NP Sep 12, 2017 08:12
[2017-09-12 08:44] VITALS: BP 128/78
--- NOTE | 2017-09-12 09:19 | General Progress Note ---
Assessment/Plan Problem List: (1) Sepsis ICD Codes: A41.9 - Sepsis, unspecified organism SNOMED: 80363127 (2) Acute on chronic respiratory failure ICD Codes: J96.20 - Acute and chronic respiratory failure, unspecified whether with hypoxia or hypercapnia SNOMED: 52962764 (3) Anemia ICD Codes: D64.9 - Anemia, unspecified SNOMED: 872990514 Status: unchanged Assessment/Plan vent abx cbc bmp am ltach eval Subjective Constitutional: Reports: weakness Allergies: Coded Allergies: No Known Allergies (Unverified , 10/20/16) All Systems: reviewed and negative except above Subjective trach vent altered Objective Last 24 Hour Vital Signs Date Time Temp Pulse Resp B/P (MAP) Pulse Ox O2 Delivery O2 Flow Rate FiO2 09/12/17 09:12 59 16 35 09/12/17 08:44 98.2 59 18 128/78 100 Mechanical Ventilator 35 98.2 09/12/17 08:00 35 09/12/17 07:29 61 16 35 09/12/17 05:26 65 16 35 09/12/17 04:01 72 09/12/17 04:00 98.0 61 18 100/70 100 Mechanical Ventilator 35 98.0 09/12/17 04:00 35 09/12/17 03:30 71 22 35 09/12/17 01:04 52 16 35 09/12/17 00:00 68 09/12/17 00:00 98.1 56 19 134/63 100 Mechanical Ventilator 35 98.1 09/12/17 00:00 35 09/11/17 23:30 61 17 35 09/11/17 21:02 55 141/78 09/11/17 21:00 55 17 35 09/11/17 20:00 35 09/11/17 20:00 58 09/11/17 20:00 98.2 68 18 139/70 100 Mechanical Ventilator 35 98.2 09/11/17 19:30 58 18 35 09/11/17 17:28 57 16 35 09/11/17 16:13 59 22 Mechanical Ventilator 35 09/11/17 16:00 98.4 59 20 141/78 100 Mechanical Ventilator 35 98.4 09/11/17 16:00 35 09/11/17 16:00 63 09/11/17 15:14 59 22 35 09/11/17 12:50 66 16 35 09/11/17 12:00 35 09/11/17 12:00 98.2 54 16 138/54 100 Mechanical Ventilator 35 98.2 09/11/17 12:00 59 09/11/17 11:16 62 18 35 09/11/17 09:43 62 117/71 Intake and Output 09/11/17 09/12/17 19:00 07:00 Intake Total 773.708 ml 810.0 ml Output Total 550 ml Balance 223.708 ml 810.0 ml Intake Free Water 120 ml 150 ml IV Total 293.708 ml 330.0 ml Tube Feeding 360 ml 330 ml Output Urine Total 550 ml Laboratory Tests 09/12/17 04:45: White Blood Count 9.7, Red Blood Count 4.71, Hemoglobin 12.5L, Hematocrit 39.7L , Mean Corpuscular Volume 84, Mean Corpuscular Hemoglobin 26.5L, Mean Corpuscular Hemoglobin Concent 31.5L, Red Cell Distribution Width 15.3H, Platelet Count 276, Mean Platelet Volume 7.3, Neutrophils (%) (Auto) , Lymphocytes (%) (Auto) , Monocytes (%) (Auto) , Eosinophils (%) (Auto) , Basophils (%) (Auto) , Neutrophils % (Manual) [Pending], Lymphocytes % (Manual) [Pending], Platelet Estimate [Pending], Platelet Morphology [Pending], Sodium Level 138, Potassium Level 4.0, Chloride Level 106, Carbon Dioxide Level 23, Anion Gap 9, Blood Urea Nitrogen 10, Creatinine 0.8, Estimat Glomerular Filtration Rate > 60, Glucose Level 96, Calcium Level 9.0, Phosphorus Level 2.9 , Magnesium Level 2.1 09/12/17 07:45: Vancomycin Level Trough 13.6H Height (Feet): 5 Height (Inches): 8.00 Weight (Pounds): 146 General Appearance: lethargic EENT: normal ENT inspection Neck: normal alignment Cardiovascular: normal peripheral pulses, normal rate, regular rhythm Respiratory/Chest: chest wall non-tender, lungs clear, normal breath sounds Abdomen: normal bowel sounds, non tender, soft Extremities: normal inspection Edema: no edema noted Arm (L), no edema noted Arm (R), no edema noted Leg (L), no edema noted Leg (R), no edema noted Pedal (L), no edema noted Pedal (R), no edema noted Generalized Neurologic: motor weakness Skin: normal pigmentation, warm/dry Alex Grey DO Sep 12, 2017 09:19
[2017-09-12] MEDS: Pantoprazole Inj IV SCH (09:39)
[2017-09-12] MEDS: Vancomycin 1gm/D5W 275ml IVPB SCH ×4 (09:39→20:01)
[2017-09-12] MEDS: Ciprofloxacin 500mg tab ORAL SCH ×2 (09:40→20:27)
[2017-09-12] MEDS: Heparin 5000 units/ml inj SUBQ SCH ×2 (09:40→20:27)
--- NOTE | 2017-09-12 10:53 | Diagnostic Imaging Report ---
EXAM: XR Chest, 1 View CLINICAL HISTORY: SOB TECHNIQUE: Frontal view of the chest. COMPARISON: No relevant prior studies available. FINDINGS: Lungs: Reduced lung volumes with significant elevation the right diaphragm. Mild basilar atelectasis. Pleural space: Unremarkable. No pneumothorax. Heart: Unremarkable. No cardiomegaly. Mediastinum: Unremarkable. Bones/joints: No acute fracture. Tubes, lines and devices: Tracheostomy tube. IMPRESSION: Reduced lung volumes with significant elevation the right diaphragm. Mild basilar atelectasis.
[2017-09-12] MEDS ORDERED: Albuterol/Ipratropium 3ml neb HHN PRN (12:00)
--- NOTE | 2017-09-12 12:06 | General Progress Note ---
Assessment/Plan Status: stable Assessment/Plan # Leukocytosis secondary to underlying infection. --> wbc improving --> continue abx, monitor for improvement. # Sepsis --> Pt on IV VANCOMYCIN Q12 --> monitor for improvement. --> improving # Anemia due to underlying chronic disease. --> anemia w/u has been reviewed, will trend daily --> hgb goal >7 # Coagulopathy likely secondary to decreased p.o. intake. # History of pneumonia. --> Imaging reviewed. Decreased lung volume. --> 09/12 chest xr shows reduced lung volumes with significant elevation the right diaphragm. Mild basilar atelectasis. Subjective Date patient seen: Sep 12, 2017 ROS Limited/Unobtainable: Yes Allergies: Coded Allergies: No Known Allergies (Unverified , 10/20/16) All Systems: reviewed and negative except above Subjective Pt remains stable. Vitals are stable. 09/12 chest xr --> shows reduced lung volumes with significant elevation the right diaphragm. Mild basilar atelectasis. Objective Last 24 Hour Vital Signs Date Time Temp Pulse Resp B/P (MAP) Pulse Ox O2 Delivery O2 Flow Rate FiO2 09/12/17 11:13 58 16 35 09/12/17 09:40 59 128/78 09/12/17 09:12 59 16 35 09/12/17 08:44 98.2 59 18 128/78 100 Mechanical Ventilator 35 98.2 09/12/17 08:00 35 09/12/17 07:58 55 09/12/17 07:29 61 16 35 09/12/17 05:26 65 16 35 09/12/17 04:01 72 09/12/17 04:00 98.0 61 18 100/70 100 Mechanical Ventilator 35 98.0 09/12/17 04:00 35 09/12/17 03:30 71 22 35 09/12/17 01:04 52 16 35 09/12/17 00:00 68 09/12/17 00:00 98.1 56 19 134/63 100 Mechanical Ventilator 35 98.1 09/12/17 00:00 35 09/11/17 23:30 61 17 35 09/11/17 21:02 55 141/78 09/11/17 21:00 55 17 35 09/11/17 20:00 35 09/11/17 20:00 58 09/11/17 20:00 98.2 68 18 139/70 100 Mechanical Ventilator 35 98.2 09/11/17 19:30 58 18 35 09/11/17 17:28 57 16 35 09/11/17 16:13 59 22 Mechanical Ventilator 35 09/11/17 16:00 98.4 59 20 141/78 100 Mechanical Ventilator 35 98.4 09/11/17 16:00 35 09/11/17 16:00 63 09/11/17 15:14 59 22 35 09/11/17 12:50 66 16 35 Intake and Output 09/11/17 09/12/17 19:00 07:00 Intake Total 773.708 ml 810.0 ml Output Total 550 ml Balance 223.708 ml 810.0 ml Intake Free Water 120 ml 150 ml IV Total 293.708 ml 330.0 ml Tube Feeding 360 ml 330 ml Output Urine Total 550 ml Laboratory Tests 09/12/17 04:45: White Blood Count 9.7, Red Blood Count 4.71, Hemoglobin 12.5L, Hematocrit 39.7L , Mean Corpuscular Volume 84, Mean Corpuscular Hemoglobin 26.5L, Mean Corpuscular Hemoglobin Concent 31.5L, Red Cell Distribution Width 15.3H, Platelet Count 276, Mean Platelet Volume 7.3, Neutrophils (%) (Auto) , Lymphocytes (%) (Auto) , Monocytes (%) (Auto) , Eosinophils (%) (Auto) , Basophils (%) (Auto) , Differential Total Cells Counted 100, Neutrophils % ( Manual) 53, Lymphocytes % (Manual) 20, Monocytes % (Manual) 8, Eosinophils % ( Manual) 19H, Basophils % (Manual) 0, Band Neutrophils 0, Platelet Estimate Adequate, Platelet Morphology Normal, Hypochromasia 1+, Anisocytosis 1+, Sodium Level 138, Potassium Level 4.0, Chloride Level 106, Carbon Dioxide Level 23, Anion Gap 9, Blood Urea Nitrogen 10, Creatinine 0.8, Estimat Glomerular Filtration Rate > 60, Glucose Level 96, Calcium Level 9.0, Phosphorus Level 2.9 , Magnesium Level 2.1 09/12/17 07:45: Vancomycin Level Trough 13.6H Height (Feet): 5 Height (Inches): 8.00 Weight (Pounds): 146 General Appearance: no apparent distress EENT: PERRL/EOMI Neck: normal alignment Cardiovascular: normal peripheral pulses Respiratory/Chest: no respiratory distress Abdomen: soft Justin Anthony MD Sep 12, 2017 12:06
[2017-09-12 12:34] VITALS: BP 110/65
[2017-09-12] MEDS ORDERED: NS 500ML ONE (13:39)
[2017-09-12 16:00] VITALS: BP 141/78
[2017-09-12 20:00] VITALS: BP 133/62
[2017-09-13] VITALS: BP 145/60
[2017-09-13] MEDS: Meropenem 1 GM in NS 55 ML IVPB SCH ×3 (01:44→17:23)
[2017-09-13 04:00] VITALS: BP 110/62
[2017-09-13 04:01] LABS: HEMATOCRIT 38.5 % (42.0-52.0); HEMOGLOBIN 12.1 G/DL (14.2-18.0); MEAN CORPUSCULAR VOLUME 83 FL (80-99); PLATELET COUNT 301 K/UL (150-450); RED BLOOD COUNT 4.66 M/UL (4.70-6.10); RED CELL DISTRIBUTION WIDTH 15.6 % (11.6-14.8); WHITE BLOOD COUNT 9.8 K/UL (4.8-10.8)
[2017-09-13 04:11] LABS: ANION GAP 8 mmol/L (5-15); BLOOD UREA NITROGEN 10 mg/dL (7-18); CALCIUM 9.1 MG/DL (8.5-10.1); CARBON DIOXIDE 24 MMOL/L (21-32); CHLORIDE 104 MMOL/L (98-107); CREATININE 0.9 MG/DL (0.55-1.30); POTASSIUM 3.9 MMOL/L (3.5-5.1); SODIUM 136 MMOL/L (136-145)
[2017-09-13 08:00] VITALS: BP 142/75
[2017-09-13] MEDS: Heparin 5000 units/ml inj SUBQ SCH ×2 (09:00→21:00)
[2017-09-13] MEDS: Vancomycin 1gm/D5W 275ml IVPB SCH ×4 (09:05→20:17)
[2017-09-13] MEDS: Pantoprazole Inj IV SCH (09:05)
[2017-09-13] MEDS: Ciprofloxacin 500mg tab ORAL SCH ×2 (09:05→20:41)
[2017-09-13] MEDS ORDERED: NS 500ML ONE (09:39)
--- NOTE | 2017-09-13 10:36 | Pulmonolgy Critical Care Note ---
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 Discussed with: nurses, consultants, case plannercommunications manager - Objective Last 24 Hour Vital Signs Date Time Temp Pulse Resp B/P (MAP) Pulse Ox O2 Delivery O2 Flow Rate FiO2 09/13/17 09:05 67 142/75 09/13/17 08:50 67 17 35 09/13/17 08:03 68 09/13/17 08:00 98.4 78 17 142/75 100 Mechanical Ventilator 35 98.4 09/13/17 08:00 35 09/13/17 07:17 77 23 35 09/13/17 04:58 84 23 35 09/13/17 04:00 97.7 82 20 110/62 100 Mechanical Ventilator 35 97.7 09/13/17 04:00 35 09/13/17 04:00 75 09/13/17 03:16 72 16 35 09/13/17 01:17 70 17 35 09/13/17 00:00 35 09/13/17 00:00 97.9 65 20 145/60 100 Mechanical Ventilator 35 97.9 09/13/17 00:00 61 09/12/17 23:21 57 16 35 09/12/17 21:30 58 16 35 09/12/17 21:00 55 133/62 09/12/17 20:00 35 09/12/17 20:00 57 09/12/17 20:00 98.1 58 20 133/62 100 Mechanical Ventilator 35 98.1 09/12/17 19:30 52 20 35 09/12/17 16:37 56 16 35 09/12/17 16:00 35 09/12/17 16:00 98.4 59 20 141/78 100 Mechanical Ventilator 35 98.4 09/12/17 15:15 75 19 35 09/12/17 15:10 48 09/12/17 13:26 70 18 35 09/12/17 12:34 98.1 48 16 110/65 100 Mechanical Ventilator 35 98.1 09/12/17 12:00 35 09/12/17 11:28 61 09/12/17 11:13 58 16 35 Status: awake Condition: critical HEENT: atraumatic, normocephalic Neck: full ROM Lungs: clear Heart: HR/BP stable Abdomen: soft, non-tender, active bowel sounds Extremities: no C/C/E Critical Care - Subjective ROS Limited/Unobtainable: Yes Condition: critical EKG Rhythm: Sinus Rhythm FI02: 35 Vent Support Breath Rate: 16 Vent Support Mode: AC Vent Tidal Volume: 600 Sputum Amount: Small PEEP: 5.0 PIP: 23 Tube Feeding Amount: 30 I&O: Intake and Output 09/12/17 09/13/17 19:00 07:00 Intake Total 905.000 ml 690.0 ml Output Total 1400 ml 800 ml Balance -495.000 ml -110.0 ml Intake Free Water 100 ml IV Total 385.000 ml 330.0 ml Tube Feeding 360 ml 360 ml Other 60 ml Output Urine Total 1400 ml 800 ml # Bowel Movements 2 3 CXR: no change Labs: Laboratory Tests Test 09/13/17 03:20 White Blood Count 9.8 K/UL (4.8-10.8) Red Blood Count 4.66 M/UL (4.70-6.10) L Hemoglobin 12.1 G/DL (14.2-18.0) L Hematocrit 38.5 % (42.0-52.0) L Mean Corpuscular Volume 83 FL (80-99) Mean Corpuscular Hemoglobin 25.8 PG (27.0-31.0) L Mean Corpuscular Hemoglobin Concent 31.3 G/DL (32.0-36.0) L Red Cell Distribution Width 15.6 % (11.6-14.8) H Platelet Count 301 K/UL (150-450) Mean Platelet Volume 7.3 FL (6.5-10.1) Neutrophils (%) (Auto) % (45.0-75.0) Lymphocytes (%) (Auto) % (20.0-45.0) Monocytes (%) (Auto) % (1.0-10.0) Eosinophils (%) (Auto) % (0.0-3.0) Basophils (%) (Auto) % (0.0-2.0) Sodium Level 136 MMOL/L (136-145) Potassium Level 3.9 MMOL/L (3.5-5.1) Chloride Level 104 MMOL/L (98-107) Carbon Dioxide Level 24 MMOL/L (21-32) Anion Gap 8 mmol/L (5-15) Blood Urea Nitrogen 10 mg/dL (7-18) Creatinine 0.9 MG/DL (0.55-1.30) Estimat Glomerular Filtration Rate > 60 mL/min (>60) Glucose Level 93 MG/DL (74-106) Calcium Level 9.1 MG/DL (8.5-10.1) Rocio Uriarte MD Sep 13, 2017 10:36
--- NOTE | 2017-09-13 10:54 | General Progress Note ---
Assessment/Plan Status: stable Assessment/Plan # Leukocytosis secondary to underlying infection. --> wbc improving --> continue abx, monitor for improvement. # Sepsis --> Pt on IV VANCOMYCIN Q12 --> monitor for improvement. --> improving # Anemia due to underlying chronic disease. --> anemia w/u has been reviewed, will trend daily --> hgb goal >7 # Coagulopathy likely secondary to decreased p.o. intake. # History of pneumonia. --> Imaging reviewed. Decreased lung volume. --> 09/12 chest xr shows reduced lung volumes with significant elevation the right diaphragm. Mild basilar atelectasis. Subjective Date patient seen: Sep 13, 2017 ROS Limited/Unobtainable: Yes Allergies: Coded Allergies: No Known Allergies (Unverified , 10/20/16) All Systems: reviewed and negative except above Subjective No acute events. Pikish colored urine noted. Vitals are stable. Objective Last 24 Hour Vital Signs Date Time Temp Pulse Resp B/P (MAP) Pulse Ox O2 Delivery O2 Flow Rate FiO2 09/13/17 09:05 67 142/75 09/13/17 08:50 67 17 35 09/13/17 08:03 68 09/13/17 08:00 98.4 78 17 142/75 100 Mechanical Ventilator 35 98.4 09/13/17 08:00 35 09/13/17 07:17 77 23 35 09/13/17 04:58 84 23 35 09/13/17 04:00 97.7 82 20 110/62 100 Mechanical Ventilator 35 97.7 09/13/17 04:00 35 09/13/17 04:00 75 09/13/17 03:16 72 16 35 09/13/17 01:17 70 17 35 09/13/17 00:00 35 09/13/17 00:00 97.9 65 20 145/60 100 Mechanical Ventilator 35 97.9 09/13/17 00:00 61 09/12/17 23:21 57 16 35 09/12/17 21:30 58 16 35 09/12/17 21:00 55 133/62 09/12/17 20:00 35 09/12/17 20:00 57 09/12/17 20:00 98.1 58 20 133/62 100 Mechanical Ventilator 35 98.1 09/12/17 19:30 52 20 35 09/12/17 16:37 56 16 35 09/12/17 16:00 35 09/12/17 16:00 98.4 59 20 141/78 100 Mechanical Ventilator 35 98.4 09/12/17 15:15 75 19 35 09/12/17 15:10 48 09/12/17 13:26 70 18 35 09/12/17 12:34 98.1 48 16 110/65 100 Mechanical Ventilator 35 98.1 09/12/17 12:00 35 09/12/17 11:28 61 09/12/17 11:13 58 16 35 Intake and Output 09/12/17 09/13/17 19:00 07:00 Intake Total 905.000 ml 690.0 ml Output Total 1400 ml 800 ml Balance -495.000 ml -110.0 ml Intake Free Water 100 ml IV Total 385.000 ml 330.0 ml Tube Feeding 360 ml 360 ml Other 60 ml Output Urine Total 1400 ml 800 ml # Bowel Movements 2 3 Laboratory Tests 09/13/17 03:20: White Blood Count 9.8, Red Blood Count 4.66L, Hemoglobin 12.1L, Hematocrit 38.5L , Mean Corpuscular Volume 83, Mean Corpuscular Hemoglobin 25.8L, Mean Corpuscular Hemoglobin Concent 31.3L, Red Cell Distribution Width 15.6H, Platelet Count 301, Mean Platelet Volume 7.3, Neutrophils (%) (Auto) , Lymphocytes (%) (Auto) , Monocytes (%) (Auto) , Eosinophils (%) (Auto) , Basophils (%) (Auto) , Sodium Level 136, Potassium Level 3.9, Chloride Level 104 , Carbon Dioxide Level 24, Anion Gap 8, Blood Urea Nitrogen 10, Creatinine 0.9, Estimat Glomerular Filtration Rate > 60, Glucose Level 93, Calcium Level 9.1 Height (Feet): 5 Height (Inches): 8.00 Weight (Pounds): 146 General Appearance: no apparent distress EENT: PERRL/EOMI Neck: normal alignment Cardiovascular: normal peripheral pulses Respiratory/Chest: no respiratory distress Abdomen: soft Justin Anthony MD Sep 13, 2017 10:54
[2017-09-13 12:00] VITALS: BP 99/50
--- NOTE | 2017-09-13 12:00 | General Progress Note ---
Assessment/Plan Problem List: (1) Sepsis ICD Codes: A41.9 - Sepsis, unspecified organism SNOMED: 19414314 (2) Acute on chronic respiratory failure ICD Codes: J96.20 - Acute and chronic respiratory failure, unspecified whether with hypoxia or hypercapnia SNOMED: 69933051 (3) Anemia ICD Codes: D64.9 - Anemia, unspecified SNOMED: 608025279 Status: unchanged Assessment/Plan vent abx cbc ltach transfer Subjective Constitutional: Reports: weakness Allergies: Coded Allergies: No Known Allergies (Unverified , 10/20/16) All Systems: reviewed and negative except above Subjective trach vent altered Objective Last 24 Hour Vital Signs Date Time Temp Pulse Resp B/P (MAP) Pulse Ox O2 Delivery O2 Flow Rate FiO2 09/13/17 10:42 69 20 35 09/13/17 09:05 67 142/75 09/13/17 08:50 67 17 35 09/13/17 08:03 68 09/13/17 08:00 98.4 78 17 142/75 100 Mechanical Ventilator 35 98.4 09/13/17 08:00 35 09/13/17 07:17 77 23 35 09/13/17 04:58 84 23 35 09/13/17 04:00 97.7 82 20 110/62 100 Mechanical Ventilator 35 97.7 09/13/17 04:00 35 09/13/17 04:00 75 09/13/17 03:16 72 16 35 09/13/17 01:17 70 17 35 09/13/17 00:00 35 09/13/17 00:00 97.9 65 20 145/60 100 Mechanical Ventilator 35 97.9 09/13/17 00:00 61 09/12/17 23:21 57 16 35 09/12/17 21:30 58 16 35 09/12/17 21:00 55 133/62 09/12/17 20:00 35 09/12/17 20:00 57 09/12/17 20:00 98.1 58 20 133/62 100 Mechanical Ventilator 35 98.1 09/12/17 19:30 52 20 35 09/12/17 16:37 56 16 35 09/12/17 16:00 35 09/12/17 16:00 98.4 59 20 141/78 100 Mechanical Ventilator 35 98.4 7/1/18 15:15 75 19 35 09/12/17 15:10 48 09/12/17 13:26 70 18 35 09/12/17 12:34 98.1 48 16 110/65 100 Mechanical Ventilator 35 98.1 Intake and Output 09/12/17 09/13/17 19:00 07:00 Intake Total 905.000 ml 690.0 ml Output Total 1400 ml 800 ml Balance -495.000 ml -110.0 ml Intake Free Water 100 ml IV Total 385.000 ml 330.0 ml Tube Feeding 360 ml 360 ml Other 60 ml Output Urine Total 1400 ml 800 ml # Bowel Movements 2 3 Laboratory Tests 09/13/17 03:20: White Blood Count 9.8, Red Blood Count 4.66L, Hemoglobin 12.1L, Hematocrit 38.5L , Mean Corpuscular Volume 83, Mean Corpuscular Hemoglobin 25.8L, Mean Corpuscular Hemoglobin Concent 31.3L, Red Cell Distribution Width 15.6H, Platelet Count 301, Mean Platelet Volume 7.3, Neutrophils (%) (Auto) , Lymphocytes (%) (Auto) , Monocytes (%) (Auto) , Eosinophils (%) (Auto) , Basophils (%) (Auto) , Sodium Level 136, Potassium Level 3.9, Chloride Level 104 , Carbon Dioxide Level 24, Anion Gap 8, Blood Urea Nitrogen 10, Creatinine 0.9, Estimat Glomerular Filtration Rate > 60, Glucose Level 93, Calcium Level 9.1 Height (Feet): 5 Height (Inches): 8.00 Weight (Pounds): 146 General Appearance: lethargic EENT: normal ENT inspection Neck: normal alignment Cardiovascular: normal peripheral pulses, normal rate, regular rhythm Respiratory/Chest: chest wall non-tender, decreased breath sounds Abdomen: normal bowel sounds, non tender, soft Extremities: normal inspection Edema: no edema noted Arm (L), no edema noted Arm (R), no edema noted Leg (L), no edema noted Leg (R), no edema noted Pedal (L), no edema noted Pedal (R), no edema noted Generalized Neurologic: motor weakness Skin: normal pigmentation, warm/dry Alex Grey DO Sep 13, 2017 12:00
--- NOTE | 2017-09-13 12:16 | Diagnostic Imaging Report ---
Indication: Dyspnea Comparison: 09/12/2017 A single view chest radiograph was obtained. Findings: The right hemidiaphragm is elevated. There is interposition of the hepatic flexure seen just below the right hemidiaphragm. Lung volumes remain low. Tracheostomy again noted. IMPRESSION: No significant change
[2017-09-13 16:00] VITALS: BP 136/61
[2017-09-13 20:00] VITALS: BP 102/66
--- NOTE | 2017-09-13 20:05 | Infectious Diseases Prog Note ---
Assessment/Plan Assessment/Plan ASSESSMENT: The patient is a 72-year-old male with Sepsis; resolved Leukocytosis; recurrent; resolved Status post transient HypoTN Possible ventilator-associated pneumonia . -u.a wbc 2/4, nit neg, leuk +2; ucx Neg -Bcx 2/ CoNS (contaminant); repeat Bcx NTD; 09/06 2/4 S.epi; Bcx 09/08 NTD- repeat CONS bacteremia- likely contaminants --echo not able to be done as patient too contracted -sp cx Serratia marcenses (R ancef, otherwise S); MDR PsA (R Cipro, Cefepime ; I Genta, Ceftazidime; S Imipenem; repeat GNR; repeat Sp cx 09/06 PsA ( different strain)- R Imipenem I Levo, S Cefepime, Cipro -CXR: The right hemidiaphragm is elevated, as previously. Atelectatic changes are seen at the right lung base. Atelectasis is also seen in the left perihilar region. The lungs and pleural spaces are otherwise clear -cdiff neg History of aspiration pneumonia. Possible urinary tract infection/history of ESBL E. coli -. History of respiratory failure, on the vent. -. Status post PEG, dysphagia. -. History of Aerococcus bacteremia. -. History of ESBL E. coli and healthcare-associated pneumonia. -. Osteoarthritis. -. Hypertension. -. Chronic obstructive pulmonary disease. -. GERD. -. Helicobacter pylori in the past. -. Dementia/psychosis. PLAN: Last day of meropenem # 10/10 and Cipro # 5/5 for possible Serratia and PsA PNA vs tracheitis Last day of IV Vancomycin abx d# 10 / for staph bacteremia -monitor QTc -Ok to discharge tomorrow off abx 09/09 SP Levaquin #3 -09/07 SP IV vancomycin #4 -09/04 SP Cefepime and Flagyl x1 03/22 SP Ancef x1 (periop) 03/21 SP Meropenem #14 03/20 SP IV Vanco #10 03/15/17 SP Dapto x1 03/08 SP vancomycin d# 5 03/07/17 SP Zosyn d# 4 Monitor CBC. Monitor BMP. f/u repeat Bcx x2 Monitor chest x-ray. Monitor the patient's clinical course and laboratories Discussed with RN. Subjective Allergies: Coded Allergies: No Known Allergies (Unverified , 10/20/16) Subjective afebrile Fio2 35% no leukocytosis repeat Bcx NTD Objective Vital Signs Last 24 Hour Vital Signs Date Time Temp Pulse Resp B/P (MAP) Pulse Ox O2 Delivery O2 Flow Rate FiO2 09/13/17 19:18 74 17 35 09/13/17 17:30 72 18 35 09/13/17 16:00 67 09/13/17 16:00 35 09/13/17 16:00 99.0 67 17 136/61 100 Mechanical Ventilator 35 99.0 09/13/17 15:15 69 21 35 09/13/17 13:15 86 24 35 09/13/17 12:01 35 09/13/17 12:00 98.6 61 16 99/50 100 Mechanical Ventilator 35 98.6 09/13/17 12:00 73 09/13/17 10:42 69 20 35 09/13/17 09:05 67 142/75 09/13/17 08:50 67 17 35 09/13/17 08:03 68 09/13/17 08:00 98.4 78 17 142/75 100 Mechanical Ventilator 35 98.4 09/13/17 08:00 35 09/13/17 07:17 77 23 35 09/13/17 04:58 84 23 35 09/13/17 04:00 97.7 82 20 110/62 100 Mechanical Ventilator 35 97.7 09/13/17 04:00 35 09/13/17 04:00 75 09/13/17 03:16 72 16 35 09/13/17 01:17 70 17 35 09/13/17 00:00 35 09/13/17 00:00 97.9 65 20 145/60 100 Mechanical Ventilator 35 97.9 09/13/17 00:00 61 09/12/17 23:21 57 16 35 09/12/17 21:30 58 16 35 09/12/17 21:00 55 133/62 Height (Feet): 5 Height (Inches): 8.00 Weight (Pounds): 146 Objective HEENT: Mild pale conjunctivae. No icterus. NECK: Trach in place. CHEST: Coarse breathing sounds. HEART: S1 and S2. ABDOMEN: Soft. PEG tube in place. EXTREMITIES: No cyanosis. NEUROLOGIC: Awake and alert. Laboratory Tests Test 09/13/17 03:20 White Blood Count 9.8 K/UL (4.8-10.8) Red Blood Count 4.66 M/UL (4.70-6.10) L Hemoglobin 12.1 G/DL (14.2-18.0) L Hematocrit 38.5 % (42.0-52.0) L Mean Corpuscular Volume 83 FL (80-99) Mean Corpuscular Hemoglobin 25.8 PG (27.0-31.0) L Mean Corpuscular Hemoglobin Concent 31.3 G/DL (32.0-36.0) L Red Cell Distribution Width 15.6 % (11.6-14.8) H Platelet Count 301 K/UL (150-450) Mean Platelet Volume 7.3 FL (6.5-10.1) Neutrophils (%) (Auto) % (45.0-75.0) Lymphocytes (%) (Auto) % (20.0-45.0) Monocytes (%) (Auto) % (1.0-10.0) Eosinophils (%) (Auto) % (0.0-3.0) Basophils (%) (Auto) % (0.0-2.0) Sodium Level 136 MMOL/L (136-145) Potassium Level 3.9 MMOL/L (3.5-5.1) Chloride Level 104 MMOL/L (98-107) Carbon Dioxide Level 24 MMOL/L (21-32) Anion Gap 8 mmol/L (5-15) Blood Urea Nitrogen 10 mg/dL (7-18) Creatinine 0.9 MG/DL (0.55-1.30) Estimat Glomerular Filtration Rate > 60 mL/min (>60) Glucose Level 93 MG/DL (74-106) Calcium Level 9.1 MG/DL (8.5-10.1) Current Medications Medications (Trade) Dose Ordered Sig/Ant Route PRN Reason Start Time Stop Time Status Last Admin Dose Admin Acetaminophen (Tylenol) 650 mg Q4H PRN ORAL FEVER 09/04/17 12:30 10/04/17 12:29 Albuterol/ Ipratropium (Albuterol/ Ipratropium) 3 ml Q4H PRN HHN sob 09/12/17 12:00 09/17/17 11:59 Carvedilol (Coreg) 3.125 mg EVERY 12 HOURS GT 09/04/17 21:00 10/04/17 20:59 09/13/17 09:05 Ciprofloxacin (Cipro 500mg tab) 500 mg EVERY 12 HOURS ORAL 09/09/17 21:00 09/16/17 20:59 09/13/17 09:05 Dextrose (Dextrose 50%) STAT PRN IV Hypoglycemia 09/04/17 12:30 10/04/17 12:29 Heparin Sodium (Porcine) (Heparin 5000 units/ml) 5,000 units EVERY 12 HOURS SUBQ 09/04/17 21:00 10/04/17 20:59 09/12/17 20:27 Lorazepam (Ativan 2mg/ml 1ml) 2 mg Q2H PRN IV For Anxiety 09/11/17 12:30 09/18/17 12:29 Meropenem 1 gm/ Sodium Chloride 55 ml @ 110 mls/hr Q8H IVPB 09/04/17 18:00 09/14/17 17:59 09/13/17 17:23 Morphine Sulfate (Morphine Sulfate) 4 mg Q4H PRN IVP Severe Pain (Pain Scale 7-10) 09/11/17 12:30 09/18/17 12:29 Ondansetron HCl (Zofran) 4 mg Q6H PRN IVP Nausea & Vomiting 09/04/17 12:30 10/04/17 12:29 09/05/17 23:51 Pantoprazole (Protonix) 40 mg DAILY IV 09/05/17 09:00 10/05/17 08:59 09/13/17 09:05 Polyethylene Glycol (Miralax) 17 gm DAILYPRN PRN ORAL Constipation 09/04/17 12:30 10/04/17 12:29 Vancomycin HCl (Vanco rx to dose) 1 ea DAILY PRN MISC Per rx protocol 09/08/17 17:30 10/08/17 17:29 Vancomycin HCl 1 gm/Dextrose 275 ml @ 183.708 mls/hr Q12HR@0830,2030 IVPB 09/10/17 20:30 09/15/17 20:29 09/13/17 09:05 Alise Polanco M.D. Sep 13, 2017 20:05
[2017-09-14] VITALS: BP 100/67
[2017-09-14] MEDS: Meropenem 1 GM in NS 55 ML IVPB SCH ×2 (02:31→10:15)
[2017-09-14 04:00] VITALS: BP 140/75
[2017-09-14 05:55] LABS: HEMATOCRIT 38.8 % (42.0-52.0); HEMOGLOBIN 12.2 G/DL (14.2-18.0); MEAN CORPUSCULAR VOLUME 83 FL (80-99); PLATELET COUNT 288 K/UL (150-450); RED BLOOD COUNT 4.65 M/UL (4.70-6.10); RED CELL DISTRIBUTION WIDTH 15.4 % (11.6-14.8); WHITE BLOOD COUNT 9.6 K/UL (4.8-10.8)
[2017-09-14 06:18] LABS: ALANINE AMINOTRANSFERASE 36 U/L (12-78); ALBUMIN 2.5 G/DL (3.4-5.0); ALBUMIN/GLOBULIN RATIO 0.5 (1.0-2.7); ALKALINE PHOSPHATASE 109 U/L (46-116); ANION GAP 9 mmol/L (5-15); ASPARTATE AMINO TRANSFERASE 46 U/L (15-37); BILIRUBIN,TOTAL 0.6 MG/DL (0.2-1.0); BLOOD UREA NITROGEN 10 mg/dL (7-18); CALCIUM 8.7 MG/DL (8.5-10.1); CARBON DIOXIDE 24 MMOL/L (21-32); CHLORIDE 104 MMOL/L (98-107); CREATININE 0.9 MG/DL (0.55-1.30); SODIUM 137 MMOL/L (136-145)
[2017-09-14 08:00] VITALS: BP 128/75
[2017-09-14] MEDS: Vancomycin 1gm/D5W 275ml IVPB SCH ×2 (08:31)
[2017-09-14] MEDS: Heparin 5000 units/ml inj SUBQ SCH (08:53)
[2017-09-14] MEDS: Ciprofloxacin 500mg tab ORAL SCH (08:53)
[2017-09-14] MEDS: Pantoprazole Inj IV SCH (08:54)
--- NOTE | 2017-09-14 09:13 | General Progress Note ---
Assessment/Plan Problem List: (1) Sepsis ICD Codes: A41.9 - Sepsis, unspecified organism SNOMED: 28179447 (2) Acute on chronic respiratory failure ICD Codes: J96.20 - Acute and chronic respiratory failure, unspecified whether with hypoxia or hypercapnia SNOMED: 37329952 (3) Anemia ICD Codes: D64.9 - Anemia, unspecified SNOMED: 853438299 Status: unchanged Assessment/Plan vent abx cbc ltach transfer Subjective Constitutional: Reports: weakness Allergies: Coded Allergies: No Known Allergies (Unverified , 10/20/16) All Systems: reviewed and negative except above Subjective trach vent altered Objective Last 24 Hour Vital Signs Date Time Temp Pulse Resp B/P (MAP) Pulse Ox O2 Delivery O2 Flow Rate FiO2 09/14/17 08:54 66 128/75 09/14/17 08:00 30 09/14/17 08:00 98.3 66 16 128/75 100 Mechanical Ventilator 30 98.3 09/14/17 07:43 67 09/14/17 06:56 65 16 35 09/14/17 04:43 63 18 35 09/14/17 04:00 98.7 73 17 140/75 100 Mechanical Ventilator 30 98.7 09/14/17 04:00 62 09/14/17 04:00 30 09/14/17 03:23 80 18 35 09/14/17 01:29 76 23 35 09/14/17 00:00 98.6 68 17 100/67 100 Mechanical Ventilator 30 98.6 09/14/17 00:00 30 09/14/17 00:00 67 09/13/17 23:29 71 21 30 09/13/17 21:00 58 102/66 09/13/17 20:53 87 18 35 09/13/17 20:00 35 09/13/17 20:00 66 09/13/17 20:00 98.2 58 17 102/66 100 Mechanical Ventilator 35 98.2 09/13/17 19:18 74 17 35 09/13/17 17:30 72 18 35 09/13/17 16:00 67 09/13/17 16:00 35 09/13/17 16:00 99.0 67 17 136/61 100 Mechanical Ventilator 35 99.0 09/13/17 15:15 69 21 35 09/13/17 13:15 86 24 35 09/13/17 12:01 35 09/13/17 12:00 98.6 61 16 99/50 100 Mechanical Ventilator 35 98.6 09/13/17 12:00 73 09/13/17 10:42 69 20 35 Intake and Output 09/13/17 09/14/17 19:00 07:00 Intake Total 905.000 ml 690.0 ml Output Total 450 ml 750 ml Balance 455.000 ml -60.0 ml Intake Free Water 100 ml IV Total 385.000 ml 330.0 ml Tube Feeding 360 ml 360 ml Other 60 ml Output Urine Total 450 ml 750 ml # Bowel Movements 2 2 Laboratory Tests 09/14/17 03:46: White Blood Count 9.6, Red Blood Count 4.65L, Hemoglobin 12.2L, Hematocrit 38.8L , Mean Corpuscular Volume 83, Mean Corpuscular Hemoglobin 26.2L, Mean Corpuscular Hemoglobin Concent 31.4L, Red Cell Distribution Width 15.4H, Platelet Count 288, Mean Platelet Volume 6.6, Neutrophils (%) (Auto) , Lymphocytes (%) (Auto) , Monocytes (%) (Auto) , Eosinophils (%) (Auto) , Basophils (%) (Auto) , Sodium Level 137, Potassium Level 4.0, Chloride Level 104 , Carbon Dioxide Level 24, Anion Gap 9, Blood Urea Nitrogen 10, Creatinine 0.9, Estimat Glomerular Filtration Rate > 60, Glucose Level 84, Calcium Level 8.7, Phosphorus Level 3.0, Magnesium Level 2.2, Total Bilirubin 0.6, Aspartate Amino Transf (AST/SGOT) 46H, Alanine Aminotransferase (ALT/SGPT) 36, Alkaline Phosphatase 109, Total Protein 7.3, Albumin 2.5L, Globulin 4.8, Albumin/ Globulin Ratio 0.5L Height (Feet): 5 Height (Inches): 8.00 Weight (Pounds): 146 General Appearance: lethargic EENT: normal ENT inspection Neck: normal alignment Cardiovascular: normal peripheral pulses, normal rate, regular rhythm Respiratory/Chest: chest wall non-tender, lungs clear, normal breath sounds Abdomen: normal bowel sounds, non tender, soft Extremities: normal inspection Edema: no edema noted Arm (L), no edema noted Arm (R), no edema noted Leg (L), no edema noted Leg (R), no edema noted Pedal (L), no edema noted Pedal (R), no edema noted Generalized Neurologic: motor weakness Skin: normal pigmentation, warm/dry Alex Grey DO Sep 14, 2017 09:13
--- NOTE | 2017-09-14 10:47 | Pulmonolgy Critical Care Note ---
Critical Care - Asmt/Plan Problems: (1) Acute on chronic respiratory failure (2) Sepsis (3) Healthcare associated bacterial pneumonia (4) COPD (chronic obstructive pulmonary disease) (5) half-way resident (6) Alzheimer disease (7) Feeding by G-tube Respiratory: monitor respiratory rate, adjust FIO2, CXR Cardiac: continue to monitor HR/BP Renal: F/U I&O, keep IV fluid Infectious Disease: check cultures Gastrointestinal: continue feedings/current rate Endocrine: monitor blood sugar, continue sliding scale insulin Hematologic: monitor H/H, transfuse if hgb<8.5 Neurologic: PRN Ativan, keep patient comfortable Affect: PRN ativan Prophylaxis: Protonix Notes Reviewed: telecommunications repairer, cardio Discussed with: nurses, consultants, senior case managermaterials planning manager - Objective Last 24 Hour Vital Signs Date Time Temp Pulse Resp B/P (MAP) Pulse Ox O2 Delivery O2 Flow Rate FiO2 09/14/17 09:14 66 18 35 09/14/17 08:54 66 128/75 09/14/17 08:00 30 09/14/17 08:00 98.3 66 16 128/75 100 Mechanical Ventilator 30 98.3 09/14/17 07:43 67 09/14/17 06:56 65 16 35 09/14/17 04:43 63 18 35 09/14/17 04:00 98.7 73 17 140/75 100 Mechanical Ventilator 30 98.7 09/14/17 04:00 62 09/14/17 04:00 30 09/14/17 03:23 80 18 35 09/14/17 01:29 76 23 35 09/14/17 00:00 98.6 68 17 100/67 100 Mechanical Ventilator 30 98.6 09/14/17 00:00 30 09/14/17 00:00 67 09/13/17 23:29 71 21 30 09/13/17 21:00 58 102/66 09/13/17 20:53 87 18 35 09/13/17 20:00 35 09/13/17 20:00 66 09/13/17 20:00 98.2 58 17 102/66 100 Mechanical Ventilator 35 98.2 09/13/17 19:18 74 17 35 09/13/17 17:30 72 18 35 09/13/17 16:00 67 09/13/17 16:00 35 09/13/17 16:00 99.0 67 17 136/61 100 Mechanical Ventilator 35 99.0 09/13/17 15:15 69 21 35 09/13/17 13:15 86 24 35 09/13/17 12:01 35 09/13/17 12:00 98.6 61 16 99/50 100 Mechanical Ventilator 35 98.6 09/13/17 12:00 73 Status: obtunded Condition: critical Neck: full ROM Lungs: clear Heart: regular Abdomen: non-tender, active bowel sounds Extremities: edema Critical Care - Subjective ROS Limited/Unobtainable: Yes Condition: critical FI02: 35 Vent Support Breath Rate: 16 Vent Support Mode: AC Vent Tidal Volume: 600 Sputum Amount: Small PEEP: 5.0 PIP: 30 Tube Feeding Amount: 30 I&O: Intake and Output 09/13/17 09/14/17 19:00 07:00 Intake Total 905.000 ml 690.0 ml Output Total 450 ml 750 ml Balance 455.000 ml -60.0 ml Intake Free Water 100 ml IV Total 385.000 ml 330.0 ml Tube Feeding 360 ml 360 ml Other 60 ml Output Urine Total 450 ml 750 ml # Bowel Movements 2 2 CXR: no change Labs: Laboratory Tests Test 09/14/17 03:46 White Blood Count 9.6 K/UL (4.8-10.8) Red Blood Count 4.65 M/UL (4.70-6.10) L Hemoglobin 12.2 G/DL (14.2-18.0) L Hematocrit 38.8 % (42.0-52.0) L Mean Corpuscular Volume 83 FL (80-99) Mean Corpuscular Hemoglobin 26.2 PG (27.0-31.0) L Mean Corpuscular Hemoglobin Concent 31.4 G/DL (32.0-36.0) L Red Cell Distribution Width 15.4 % (11.6-14.8) H Platelet Count 288 K/UL (150-450) Mean Platelet Volume 6.6 FL (6.5-10.1) Neutrophils (%) (Auto) % (45.0-75.0) Lymphocytes (%) (Auto) % (20.0-45.0) Monocytes (%) (Auto) % (1.0-10.0) Eosinophils (%) (Auto) % (0.0-3.0) Basophils (%) (Auto) % (0.0-2.0) Sodium Level 137 MMOL/L (136-145) Potassium Level 4.0 MMOL/L (3.5-5.1) Chloride Level 104 MMOL/L (98-107) Carbon Dioxide Level 24 MMOL/L (21-32) Anion Gap 9 mmol/L (5-15) Blood Urea Nitrogen 10 mg/dL (7-18) Creatinine 0.9 MG/DL (0.55-1.30) Estimat Glomerular Filtration Rate > 60 mL/min (>60) Glucose Level 84 MG/DL (74-106) Calcium Level 8.7 MG/DL (8.5-10.1) Phosphorus Level 3.0 MG/DL (2.5-4.9) Magnesium Level 2.2 MG/DL (1.8-2.4) Total Bilirubin 0.6 MG/DL (0.2-1.0) Aspartate Amino Transf (AST/SGOT) 46 U/L (15-37) H Alanine Aminotransferase (ALT/SGPT) 36 U/L (12-78) Alkaline Phosphatase 109 U/L (46-116) Total Protein 7.3 G/DL (6.4-8.2) Albumin 2.5 G/DL (3.4-5.0) L Globulin 4.8 g/dL Albumin/Globulin Ratio 0.5 (1.0-2.7) L Rocio Uriarte MD Sep 14, 2017 10:47
[2017-09-14 12:00] VITALS: BP 132/78
[2017-09-14] MEDS ORDERED: NS 500ML ONE (12:42)
--- NOTE | 2017-09-14 17:03 | General Progress Note ---
Assessment/Plan Status: stable, unchanged Assessment/Plan # Leukocytosis secondary to underlying infection. --> wbc improving --> continue abx, monitor for improvement. # Sepsis --> Pt on IV VANCOMYCIN Q12 --> monitor for improvement. --> improving # Anemia due to underlying chronic disease. --> anemia w/u has been reviewed, will trend daily --> hgb goal >7 # Coagulopathy likely secondary to decreased p.o. intake. # History of pneumonia. --> Imaging reviewed. Decreased lung volume. --> 09/12 chest xr shows reduced lung volumes with significant elevation the right diaphragm. Mild basilar atelectasis. Subjective Date patient seen: Sep 14, 2017 ROS Limited/Unobtainable: Yes Allergies: Coded Allergies: No Known Allergies (Unverified , 10/20/16) All Systems: reviewed and negative except above Subjective Pt is stable and medically cleared for transfer to [facility]. Pt is vent dependent. NAD. Vitals are stable. Objective Last 24 Hour Vital Signs Date Time Temp Pulse Resp B/P (MAP) Pulse Ox O2 Delivery O2 Flow Rate FiO2 09/14/17 12:00 30 09/14/17 12:00 98.5 68 17 132/78 100 Mechanical Ventilator 30 98.5 09/14/17 11:43 68 09/14/17 10:58 65 16 100 Mechanical Ventilator 15.0 30 09/14/17 10:47 69 16 100 Mechanical Ventilator 1.0 30 09/14/17 10:47 30 09/14/17 10:46 69 16 35 09/14/17 09:14 66 18 35 09/14/17 08:54 66 128/75 09/14/17 08:00 30 09/14/17 08:00 98.3 66 16 128/75 100 Mechanical Ventilator 30 98.3 09/14/17 07:43 67 09/14/17 06:56 65 16 35 09/14/17 04:43 63 18 35 09/14/17 04:00 98.7 73 17 140/75 100 Mechanical Ventilator 30 98.7 09/14/17 04:00 62 09/14/17 04:00 30 09/14/17 03:23 80 18 35 09/14/17 01:29 76 23 35 09/14/17 00:00 98.6 68 17 100/67 100 Mechanical Ventilator 30 98.6 09/14/17 00:00 30 09/14/17 00:00 67 09/13/17 23:29 71 21 30 09/13/17 21:00 58 102/66 09/13/17 20:53 87 18 35 09/13/17 20:00 35 09/13/17 20:00 66 09/13/17 20:00 98.2 58 17 102/66 100 Mechanical Ventilator 35 98.2 09/13/17 19:18 74 17 35 09/13/17 17:30 72 18 35 Intake and Output 09/13/17 09/14/17 19:00 07:00 Intake Total 905.000 ml 690.0 ml Output Total 450 ml 750 ml Balance 455.000 ml -60.0 ml Intake Free Water 100 ml IV Total 385.000 ml 330.0 ml Tube Feeding 360 ml 360 ml Other 60 ml Output Urine Total 450 ml 750 ml # Bowel Movements 2 2 Laboratory Tests 09/14/17 03:46: White Blood Count 9.6, Red Blood Count 4.65L, Hemoglobin 12.2L, Hematocrit 38.8L , Mean Corpuscular Volume 83, Mean Corpuscular Hemoglobin 26.2L, Mean Corpuscular Hemoglobin Concent 31.4L, Red Cell Distribution Width 15.4H, Platelet Count 288, Mean Platelet Volume 6.6, Neutrophils (%) (Auto) , Lymphocytes (%) (Auto) , Monocytes (%) (Auto) , Eosinophils (%) (Auto) , Basophils (%) (Auto) , Sodium Level 137, Potassium Level 4.0, Chloride Level 104 , Carbon Dioxide Level 24, Anion Gap 9, Blood Urea Nitrogen 10, Creatinine 0.9, Estimat Glomerular Filtration Rate > 60, Glucose Level 84, Calcium Level 8.7, Phosphorus Level 3.0, Magnesium Level 2.2, Total Bilirubin 0.6, Aspartate Amino Transf (AST/SGOT) 46H, Alanine Aminotransferase (ALT/SGPT) 36, Alkaline Phosphatase 109, Total Protein 7.3, Albumin 2.5L, Globulin 4.8, Albumin/ Globulin Ratio 0.5L Height (Feet): 5 Height (Inches): 8.00 Weight (Pounds): 146 General Appearance: lethargic EENT: PERRL/EOMI Neck: normal alignment Cardiovascular: normal peripheral pulses Abdomen: no mass Justin Anthony MD Sep 14, 2017 17:02
--- NOTE | 2017-09-16 10:48 | Discharge Summary ---
Discharge Summary Discharge Summary _ DATE OF ADMISSION: 09/04/2017 DATE OF DISCHARGE: 09/14/2017 REASON FOR ADMISSION: 72 years old male with past medical history significant for ventilator- dependent respiratory failure, tracheostomy status, dysphagia ,G-tube, COPD , was sent from [facility] [place] [facility] for evaluation. Apparently the facility white blood count was over 20,000. Upon evaluation patient was afebrile, blood pressure was stable, tachypneic with respiratory rate of 26. Pulse oximetry was stable on current settings. Baseline ABG was stable WBC 13.1. Lactic acid 2.5 Hemoglobin 12.2 hematocrit 40.2. Albumin 2.9 Troponin negative. Electrolytes and renal parameters were stable Chest x-ray revealed evidence of bibasilar atelectasis, possible infiltrates, low lung volumes and elevation of the right hemidiaphragm. Urinalysis revealed no evidence of UTI. Patient admitted with diagnosis of sepsis, acute on chronic respiratory failure , pneumonia ,dysphagia, G-tube, COPD, Alzheimer dementia. CONSULTANTS: pulmonary Dr. Uriarte ID specialist Dr. Cannon paraprofessional interpreter/oncologist Dr. Anthony [facility] COURSE: Patient admitted to [facility]. Ventilator support and tracheostomy care provided. Baseline ABG was stable on current settings. Settings were kept as is and titrated as needed. Pulmonary toilet provided. Shade Classifier closely followed. Patient was followed up with serial chest x-ray. Last chest x-ray revealed improvement , but still showed elevation of right hemidiaphragm and low lung volumes Infectious disease specialist closely followed. Initially blood culture positive for staph coagulase negative. Sputum culture was positive for Serratia and Pseudomonas. Urine culture was negative . Stool for C. difficile was negative Patient was on antibiotic for pneumonia and bacteremia. Repeated blood culture were negative, and last blood culture grew staph epidermidis. Patient was unable to have IVAN secondary to severe contractions. Patient completed course of antibiotics for pneumonia and bacteremia as per ID specialist recommendations. Infectious disease specialist cleared patient to be off antibiotics upon discharge. Leukocytosis resolved , patient afebrile. Aspiration precautions were maintained. G-tube feeding was continued. Nutritional recommendation implemented in plan of care. Patient was able to tolerate tube feeding. Patient was transiently hypotensive, resolved . Patient restarted on beta kirk. Blood pressure remained stable with close monitoring. Hemoglobin and hematocrit were closely monitored with goal to keep hemoglobin above 7. Electric Truck Operator closely followed. Patient likely had anemia of chronic disease. Renal parameters and electrolytes were closely monitored ; electrolytes corrected as needed , specifically potassium and phosphorus. Nephrotoxins were avoided. DVT prophylaxis provided. Supportive care provided. Pain management was addressed. Bowel regimen instituted. Patient clinically improved and was stable for discharge back to [facility] [place] [facility] facility ,status post antibiotic treatment FINAL DIAGNOSES: Sepsis with bacteremia/ Staph epidermidis-s/p treatment Healthcare associated pneumonia with Pseudomonas, Serratia-s/p treatment Possible ventilator associated pneumonia Acute on chronic respiratory failure with ventilator dependency and tracheostomy status Electrolyte imbalance : hypophosphatemia, hypokalemia COPD Dysphagia, G-tube Anemia of chronic disease Transient hypotension History of hypertension Severe protein calorie malnutrition Functional quadriplegia DISCHARGE MEDICATIONS: See Medication Reconciliation list. DISCHARGE INSTRUCTIONS: Patient was discharged to [facility] [place] [facility]. Follow-up with web marketing intern and internal medicine doctor at the facility. Kacy Gilliam NP Sep 16, 2017 10:48
== END 2017-09-14 12:43 | DRG 870 ==
LOC: EDBD 09:00 → EMR 09:32 → EDBEDREQ 10:06 → 2W 11:22
PROC: 5A1955Z Respiratory Ventilation, Greater than 96 Consecutive Hours (ICD-10-PCS; principal; 2017-09-04)
DX: A41.9 Sepsis, unspecified organism (principal); J96.20 Acute and chronic respiratory failure, unspecified whether with hypoxia or hypercapnia; E43 Unspecified severe protein-calorie malnutrition; R53.2 Functional quadriplegia; J15.1 Pneumonia due to Pseudomonas; J15.6 Pneumonia due to other Gram-negative bacteria; J44.0 Chronic obstructive pulmonary disease with (acute) lower respiratory infection; J95.851 Ventilator associated pneumonia; N39.0 Urinary tract infection, site not specified; Z99.11 Dependence on respirator [ventilator] status; D68.9 Coagulation defect, unspecified; J98.11 Atelectasis; G30.9 Alzheimer's disease, unspecified; F02.80 Dementia in other diseases classified elsewhere, unspecified severity, without behavioral disturbance, psychotic disturbance, mood disturbance, and anxiety; Z93.0 Tracheostomy status; Z93.1 Gastrostomy status; I10 Essential (primary) hypertension; D64.9 Anemia, unspecified; E87.6 Hypokalemia; Z68.22 Body mass index [BMI] 22.0-22.9, adult; R13.10 Dysphagia, unspecified; E83.39 Other disorders of phosphorus metabolism
CPT/HCPCS: 36415; 36600; 71045; 80048; 80053; 80069; 80202; 81003; 82550; 82553; 82803; 83605; 83735; 83880; 84100; 84484; 85007; 85025; 85610; 85730; 87040; 87070; 87081; 87086; 87181; 87205; 87324; 93005; 93970; 94002; 94003; 94640; 94664; 99285; J2405; J7620